=== PATIENT | female | born 1985 | race Caucasian/White ===

== ENCOUNTER 2023-12-15 20:25 | Outpatient (REF) | payer BC, SELFPAY | END 2023-12-15 20:26 | disposition home or self-care (01) | LOC: LAB 20:25 | PROVIDERS: Visit Provider Obstetrics & Gynecology | DX: N64.52 Nipple discharge (principal) | CPT/HCPCS: 36415 ==

== ENCOUNTER 2023-12-22 08:53 | Outpatient (OUT) | payer BC, SELFPAY ==
--- NOTE | 2023-12-22 08:56 | US_ITS ---
[address] [address] Patient Name: LELE MONTOYA MRN: [id number] date: 1985 Sex: F Assigned Patient Location: [facility] Current Patient Location: Accession/Order Number: [id number] Exam Date: 12/22/2023 08:56 Report Date: 12/23/2023 06:34 At the request of: LIDYA FUNEZ Procedure: US pelvis w/ transvaginal EXAMINATION: US pelvis w/ transvaginal HISTORY: IRREGULAR PERIODS COMPARISON: No relevant comparison available. TECHNIQUE: Transabdominal and/or transvaginal sonographic examination was performed as indicated by examination type. FINDINGS: UTERUS: Slightly prominent and heterogeneous. Uterus size: 11.1 x 5.6 x 9.2 cm ENDOMETRIUM: Heterogeneous and abnormally thickened. Endometrial thickness: 32 mm RIGHT OVARY: Normal size and appearance. Blood flow present within ovary on color Doppler. . Ovary size: 2.6 x 1.2 x 2.4 cm LEFT OVARY: Normal size and appearance. Duplex Doppler demonstrates normal waveform and flow; resistive index 0.5. Ovary size: 1.8 x 2.4 x 2.6 cm CUL-DE-SAC: Unremarkable. No significant free fluid. BLADDER: Unremarkable. OTHER: None. US/US pelvis w/ transvaginal IMPRESSION: 1. Slightly limited examination due to patient body habitus. 2. Heterogeneous and markedly thickened endometrium, 32 mm. Endometrial hyperplasia? Electronically authenticated by: EUFEMIA REECE Date: 12/23/2023 06:34
== END 2023-12-22 08:54 | disposition home or self-care (01) ==
LOC: NOMS 08:54
PROVIDERS: Visit Provider Obstetrics & Gynecology
DX: N64.52 Nipple discharge (principal); N92.6 Irregular menstruation, unspecified; R93.89 Abnormal findings on diagnostic imaging of other specified body structures
CPT/HCPCS: 76830; 76856

== ENCOUNTER 2023-12-22 09:58 | Outpatient (OUT) | payer BC, SELFPAY ==
[2023-12-22 10:22] LABS: Basophils Percent Auto 0.5 % (0.2-2.0); Eosinophils Absolute Auto 0.1 10^3/uL (0.0-0.7); Eosinophils Percent Auto 1.7 % (0.9-7.0); Hematocrit 38.8 % (36.0-48.0); Hemoglobin 12.8 g/dL (12.0-16.0); Immature Granulocytes Abs Auto 0.02 10^3/uL (0.00-0.03); Immature Granulocytes Pct Auto 0.2 % (0.0-0.5); Lymphocytes Absolute Auto 2.5 10^3/uL (1.2-3.8); Lymphocytes Percent Auto 29.7 % (20.5-60.0); Mean Corpuscular Hemoglobin 29.4 pg (26.7-34.0); Mean Corpuscular Volume 89.2 fL (81.0-99.0); Mean Platelet Volume 10.4 fL (9.5-13.5); Monocytes Absolute Auto 0.5 10^3/uL (0.3-0.8); Monocytes Percent Auto 6.2 % (1.7-12.0); Neutrophils Absolute Auto 5.2 10^3/uL (1.4-6.5); Neutrophils Percent Auto 61.7 % (43.0-75.0); Platelet Count 351 10^3/uL (150-450); Red Blood Count 4.35 10^6/uL (4.20-5.40); Red Cell Distribution Width 14.2 % (11.0-15.0); White Blood Count 8.5 10^3/uL (4.0-11.0)
[2023-12-22 11:29] LABS: Estimated Average Glucose 120 mg/dL; Glycohemoglobin A1C 5.8 % (4.5-6.2)
[2023-12-22 11:46] LABS: Thyroid Stimulating Hormone 1.991 uIU/mL (0.358-3.740)
[2023-12-22 11:47] LABS: HCG Quantitative <1 mIU/mL
[2023-12-22 11:57] LABS: Free T4 1.16 ng/dL (0.76-1.46)
[2023-12-23 04:12] LABS: FSH 5.8 mIU/mL (.); Luteinizing Hormone(LH) 3.1 mIU/mL (.); Prolactin 9.7 ng/mL (4.8-33.4)
== END 2023-12-22 09:59 | disposition home or self-care (01) ==
LOC: LAB 10:01
PROVIDERS: Visit Provider Obstetrics & Gynecology
DX: N64.52 Nipple discharge (principal); N92.6 Irregular menstruation, unspecified; R93.89 Abnormal findings on diagnostic imaging of other specified body structures
CPT/HCPCS: 36415; 76830; 76856; 82626; 82627; 83001; 83002; 83036; 84146; 84439; 84443; 84702; 85025; 87070; 87075

== ENCOUNTER 2023-12-22 21:31 | Outpatient (REF) | payer BC, SELFPAY ==
--- OUTSIDE RECORDS SUMMARY | 2023-12-22 21:37 | XMS_ITS | CCD ---
Author Organization [facility] Care Team Providers Care Community Ambassador Name Role Phone Jose Manuel Falcon Unavailable No, Physician Primary Care Provider Unavailabl e NO, PHYSICIAN Primary Care Unavailable YASMIN BROWN Attending Unavail able YASMIN BROWN Admitting Unavail able YASMIN BROWN Referring Unavail able NO, PHYSICIAN Primary Care Unavailable Lana Lombardi Primary Care Provider Maikel Leal Primary Care Provider MAIKEL LEAL Attending Unavailable MAIKEL LEAL Primary Care Unavailable ROXIE HUSSENI Attending Unavailabl e MAIKEL LEAL Primary Care Unavailable NO, PHYSICIAN Primary Care Unavailable SAMUEL MONTERO Attending Unavail able Maikel Leal MD Primary Care Provider Love Jimenez CNP Unavailable [phone] Maikel Leal MD Primary Care Provider oLve Jimenez CNP Unavailable Elisha Fuentes RN Unavailable Unavailable Love Jimenez CNP Unavailable Ariana Garza PA-C Primary Care Provide r Love Jimenez CNP Unavailable [phone] Love Jimenez CNP Unavailable [phone] Ariana Garza PA-C Primary Care Provide r Ariana Garza PA-C Primary Care Provide r Klaudia Marley RN Unavailable Unavailable CATRACHITO CUBA Referring Unavailab le CONNIFF, ARIANA REYES Primary Care Unavailab le CONNIFF, ARIANA REYES Attending Unavailab le CONNIFF, ARIANA REYES Primary Care Unavailab le CONNIFF, ARIANA REYES Attending Unavailab le VENKATESH III, ASHLEY FOWLER Referring Unav ailable VENKATESH III, ASHLYE FOWLER Referring Unav ailable CONNIFF, ARIANA REYES Primary Care Unavailab le CONNIFF, ARIANA ERYES Attending Unavailab marixa Barbara DAMARIS, Love Arrietazabeth Unavailable CONNIFF, ARIANA REYES Primary Care Unavailab le VENKATESH III, ASHLEY FOWLER Attending Unav ailable VENKATESH III, ASHLEY FOWLER Referring Unav ailable CONNIFF, ARIANA REYES Primary Care Unavailab le CONNIFF, ARIANA REYES Primary Care Unavailab le KUMPF II, TRACY LICONA Attending Unavailable KUMPF II, TRACY LICONA Referring Unavailable CONNIFF, ARIANA REYES Primary Care Unavailab le CONNIFF, ARIANA REYES Referring Unavailab le CONNIFF, ARIANA REYES Primary Care Unavailab le CONNIFF, ARIANA REYES Attending Unavailab le CONNIFF, ARIANA REYES Primary Care Unavailab le CONNIFF, ARIANA REYES Attending Unavailab le CONNIFF, ARIANA REYES Referring Unavailab le KUMPF II, TRACY LICONA Attending Unavailable CONNIFF, ARIANA REYES Primary Care Unavailab le CONIGYNICOLE Attending Unavailable CONNIFF, ARIANA REYES Primary Care Unavailab le CONNIFF, ARIANA REYES Referring Unavailab le CONNIFF, ARIANA REYES Admitting Unavailab le CONNIFF, ARIANA REYES Primary Care Unavailab le KUMPF II, TRACY LICONA Attending Unavailable CONNIFF, ARIANA REYES Primary Care Unavailab le KUMPF II, TRACY LICONA Attending Unavailable CONNIFF, ARIANA REYES Referring Unavailab le CONNIFF, ARIANA REYES Primary Care Unavailab le KUMPF II, TRACY LICONA Attending Unavailable CONNIFF, ARIANA REYES Primary Care Unavailab le CONNIFF, ARIANA REYES Attending Unavailab le CONNIFF, ARIANA REYES Primary Care Unavailab le CONNIFF, ARIANA REYES Attending Unavailab le CONNIFF, ARIANA REYES Primary Care Unavailab le KAYLA, ARIANA REYES Attending Unavailab le VENKATESH III, ASHLEY FOWLER Attending Unav ailable KALYA, ARIANA REYES Primary Care Unavailab marixa GARZA, ARIANA REYES Referring Unavailab le KAYLA, ARIANA REYES Attending Unavailab le KAYLA, RAIANA REYES Primary Care Unavailab le DEE DEELIDYA Attending Unavailable Allergies Allergy Classification Reported Allergen(s) Allergy Type Date of Onset Reaction(s) Facility NSAIDs (1 source) Ibuprofen Drug Allergy 9 GI Intolerance [facility] (20 sources) Ibuprofen; Translations: [Unknown] Drug Allergy 8 Nausea and Vomiting, GI Intolerance [facility] Work Phone: (20 sources) bee venom Propensity to adverse reactions to drug 9 Anaphylaxis [facility] (5 sources) BEE VENOM PROTEIN (HONEY BEE); Translations: [BEE VENOM PROTEIN (HONEY BEE)] Propensity to adverse reactions to drug (disorder) 9 [facility] Three Repository Medications Current Medications Medication Drug Class(es) Dates Sig (Normalized) Sig (Original) baclofen 5 mg oral tablet (10 sources) gamma-Aminobutyri c Acid-ergic Agonist Start: 04-25-2023 End: 07-24-2023 take 1 tablet by mouth three times daily as needed baclofen 5 mg Tab Indications: Multiple joint complaints Take 1 (one) tablet (5 mg total) by mouth 3 (three) times a day as needed . 90 tablet 0 04/25/2023 07/24/2023 Active Start: 01-23-2023 take 1 tablet by rolly three times daily as needed baclofen 5 mg Tab Indications: Multiple joint complaints Take 1 (one) tablet (5 mg total) by mouth 3 (three) times a day as needed . 90 tablet 0 01/23/2023 Active blood-glucose sensor (FreeSt yle Melania 3 Sensor) Marsha (15 sources) Start: 08-19-2023 blood-glucose sensor (FreeStyle Melania 3 Sensor) Marsha Indications: Prediabetes For continuous glucose monitoring. Change every 14 days . 2 each 1 08/19/2023 Active Start: 04-25-2023 End: 08-19-2023 blood-glucose sensor (FreeSt yle Melania 3 Sensor) Marsah Indications: Prediabetes For continuous glucose monitoring. Change every 14 days . 2 each 2 04/25/2023 08/19/2023 Discontinued (Reorder (Suppress CancelRx Message to Pharmacy)) Start: 04-25-2023 blood-glucose sensor (FreeStyle Melania 3 Sensor) Marsha Indications: Prediabetes For continuous glucose monitoring. Change every 14 days . 2 each 2 04/25/2023 Active 24 hr buPROPion hydrochloride 300 mg extended release oral tablet (20 sources) Aminoketone Start: 04-25-2023 End: 08-19-2023 take 1 tablet by mouth once daily buPROPion (Wellbutrin XL) 300 MG 24 hr tablet Indications: Current moderate episode of major depressive disorder without prior episode (HCC) Take 1 (one) tablet (300 mg total) by mouth daily . 90 tablet 1 08/19/2023 Active Start: 03-05-2022 End: 03-05-2023 take 1 tablet by mouth once daily buPROPion (Wellbutrin XL) 300 MG 24 hr tablet Indications: Current moderate episode of major depressive disorder without prior episode (HCC) Take 1 (one) tablet (300 mg total) by mouth daily . 90 tablet 1 09/04/2022 Active Start: 02-05-2022 End: 02-05-2023 take 1 tablet by mouth once daily buPROPion (Wellbutrin XL) 150 MG 24 hr tablet Indications: Current moderate episode of major depressive disorder without prior episode (HCC) Take 1 (one) tablet (150 mg total) by mouth daily . 30 tablet 0 02/05/2022 03/05/2022 Discontinued (Reorder (Suppress CancelRx Message to Pharmacy)) busPIRone hydrochloride 5 mg oral tablet (7 sources) Start: 03-17-2019 take 1 tablet by mouth twice daily as needed busPIRone 5 MG Tab Indications: Post-traumatic stress Take 1 tablet by mouth 2 times daily as needed. 60 tablet 1 03/17/2019 Active clindamycin 300 mg oral capsule (5 sources) Lincosamide Antibacterial Start: 10-16-2023 End: 10-26-2023 take 1 capsule by mouth twice daily clindamycin (CLEOCIN) 300 MG capsule Indications: Cellulitis of right breast , Mastitis Take 1 (one) capsule (300 mg total) by mouth 2 (two) times a day for 10 days . 20 capsule 10/16/2023 10/26/2023 Active Start: 03-19-2018 End: 03-18-2018 clindamycin (CLEOCIN) capsul e 300 mg Start: 03-18-2018 End: 03-25-2018 take 1 capsule by mouth four times daily clindamycin 300 MG Cap Take 1 capsule by mouth 4 times daily for 7 days. 28 capsule 0 03/18/2018 03/25/2018 Active doxycycline hyclate 100 mg oral tablet (7 sources) Tetracycline-class Drug Start: 08-19-2023 take 1 tablet by mouth twice daily doxycycline hyclate (VIBRA-TABS) 100 MG tablet Indications: Mastitis Take 1 (one) tablet (100 mg total) by mouth 2 (two) times a day . 14 tablet 08/19/2023 Active 24 hr metFORMIN hydrochloride 500 mg extended release oral tablet (18 sources) Biguanide Start: 01-23-2023 End: 01-23-2024 take 1 tablet by mouth once daily at breakfast metFORMIN (GLUCOPHAGE-XR) 500 MG 24 hr tablet Indications: Prediabetes Take 1 (one) tablet (500 mg total) by mouth daily with breakfast . 90 tablet 1 08/19/2023 Active multivitamin (THERAGRAN) per tablet (20 sources) take 1 tablet by mouth once daily multivitamin (THERAGRAN) per tablet Take 1 (one) tablet by mouth daily . Active take 1 tablet by mouth once soham y multivitamin (THERAGRAN) per tablet Take 1 (one) tablet by mouth daily . 0 Active multivitamin per tablet (1 source) take 1 tablet by mouth once daily multivitamin per tablet Take 1 (one) tablet by mouth daily . 0 Active PARoxetine hydrochloride 30 mg oral tablet (12 sources) Serotonin Reuptake Inhibitor Start: 9 End: 0 take 1 tablet by mouth once daily PARoxetine 30 MG tablet Indications: Post-traumatic stress Take 1 tablet by mouth daily. 30 tablet 3 06/10/2019 Active Start: 01-25-2019 End: 03-17-2019 take 1 tablet by mouth once daily paroxetine (PAXIL) 20 MG Tab tablet Indications: Post-traumatic stress Take 1 tablet by mouth daily. 30 tablet 1 01/25/2019 03/17/2019 Discontinued (Reorder) Completed/Discontinued Medications Medication Drug Class(es) Dates Sig (Normalized) Sig (Original) acetaminophen 325 mg / HYDROcodone bitartrate 5 mg oral tablet (1 source) Opioid Agonist Start: 03-19-2018 End: 03-18-2018 hydroCODone-acetam inophen (NORCO) 5-325 MG per tablet 1 Each Start: 03-19-2018 End: 03-18-2018 hydroCODone-acetaminophen (N ORCO) 5-325 MG per tablet 1 Each blood-glucose sensor (Dexcom G7 Sensor) Marsha (8 sources) Start: 04-25-2023 End: 08-19-2023 blood-glucose sensor (Dexcom G7 Sensor) Marsha Indications: Prediabetes For continuous glucose monitoring. Change every 10 days . 3 each 2 04/25/2023 08/19/2023 Discontinued (Patient's Request) Start: 04-25-2023 blood-glucose sensor (Dexcom G7 Sensor) Marsha Indications: Prediabetes For continuous glucose monitoring. Change every 10 days . 3 each 2 04/25/2023 Active 20 ml bupivacaine hydrochloride 5 mg/ml injection (1 source) Amide Local Anesthetic Start: 03-18-2018 End: 03-18-2018 bupivacaine (PF) (MARCAINE) 0.5 % injection 10 mL Start: 03-18-2018 End: 03-18-2018 bupivacaine (PF) (MARCAINE) 0.5 % injection 10 mL cephalexin 500 mg oral capsule (1 source) Cephalosporin Antibacterial Start: 03-18-2018 End: 03-18-2018 cephALEXin (KEFLEX) capsule 1,000 mg Start: 03-18-2018 End: 03-18-2018 cephALEXin (KEFLEX) capsule 1,000 mg 12 hr cetirizine hydrochloride 5 mg / pseudoephedrine hydrochloride 120 mg extended release oral tablet (1 source) alpha-Adrenergic Agonist, Histamine-1 Receptor Antagonist Start: 09-10-2022 End: 01-23-2023 take 1 tablet by mouth twice daily cetirizine-pseudoePHEDrine (ZyrTEC-D) 5-120 mg per tablet Take 1 (one) tablet by mouth 2 (two) times a day . 60 tablet 0 09/10/2022 01/23/2023 Discontinued cyclobenzaprine hydrochloride 5 mg oral tablet (9 sources) Muscle Relaxant Start: 12-07-2019 End: 12-14-2019 take 1 tablet by mouth twice daily as needed cyclobenzaprine 5 MG tablet Indications: Chronic right-sided low back pain with bilateral sciatica Take 1 tablet by mouth 2 times daily as needed. During waking hours 14 tablet 0 12/07/2019 12/14/2019 Discontinued Start: 12-07-2019 End: 12-07-2019 take 1 tablet by mouth three times daily as needed for muscle spasms cyclobenzaprine 5 MG tablet Indications: Chronic right-sided low back pain with bilateral sciatica Take 1 tablet by mouth 3 times daily as needed for Muscle spasms. 14 tablet 0 12/07/2019 12/07/2019 Discontinued Start: 12-06-2019 End: 12-07-2019 take 1 tablet by mouth at bedtime as needed cyclobenzaprine 10 MG tablet Take 1 tablet by mouth at bedtime as needed. 0 12/07/2019 Active dexamethasone 1 mg/ml / neomycin 3.5 mg/ml / polymyxin b 65142 unt/ml ophthalmic suspension (1 source) Aminoglycoside Antibacterial, Polymyxin-class Antibacterial, Corticosteroid Start: 05-07-2019 End: 06-10-2019 take 1 drop(s) into the eye(s) every four hours [id number] 3.5-21060-2.[address] 1 drop in both eyes every 4 hours while awake. 5 mL 0 05/07/2019 06/10/2019 Discontinued 30 ml EPINEPHrine 0.005 mg/ml / lidocaine hydrochloride 10 mg/ml injection (1 source) Antiarrhythmic, alpha-Adrenergic Agonist, beta-Adrenergic Agonist, Catecholamine, Amide Local Anesthetic Start: 03-18-2018 End: 03-18-2018 lidocaine-epinephrine 1%-1:2 17100 injection SOLN 10 mL Start: 03-18-2018 End: 03-18-2018 lidocaine-epinephrine 1%-1:2 39159 injection SOLN 10 mL lidocaine 0.05 mg/mg medicated patch (3 sources) Antiarrhythmic, Amide Local Anesthetic Start: 12-06-2019 End: 12-07-2019 lidocaine 5 % Patch patch Place 1 patch on skin every 24 hours. Max of 12 hours of application then remove. 12 patch 0 12/06/2019 12/07/2019 Discontinued Start: 12-06-2019 End: 12-06-2019 lidocaine (LIDODERM) 5 % pat ch 1 patch losartan potassium 50 mg oral tablet (5 sources) Angiotensin 2 Receptor Iza Start: 06-25-2019 End: 12-14-2019 take 1 tablet by mouth once daily losartan (Cozaar) 50 MG tablet Indications: Essential hypertension Take 1 tablet by mouth daily. 30 tablet 1 06/25/2019 12/14/2019 Discontinued medroxyPROGESTERone acetate 10 mg oral tablet (9 sources) Progestin Start: 05-08-2020 End: 02-05-2022 medroxyPROGESTERone (PROVERA) 10 MG tablet Take 1 (one) tablet (10 mg total) by mouth daily To start menses every 2 months if needed for 10 days . 10 tablet 4 05/08/2020 02/05/2022 Discontinued (Patient's Request) 24 hr oxybutynin chloride 5 mg extended release oral tablet (2 sources) Cholinergic Muscarinic Antagonist Start: 05-28-2022 End: 05-28-2023 take 1 tablet by mouth once daily oxybutynin (DITROPAN-XL) 5 MG 24 hr tablet Indications: Overactive bladder Take 1 (one) tablet (5 mg total) by mouth daily . 30 tablet 0 05/28/2022 09/04/2022 Discontinued predniSONE 10 mg oral tablet (1 source) Start: 09-10-2022 End: 01-23-2023 take 3 tablets by mouth once daily predniSONE (DELTASONE) 10 MG tablet Take three tabs po qd x 3 d . 9 tablet 0 09/10/2022 01/23/2023 Discontinued Problems Active Problems Problem Classification Problem Date Documented Date Episodic/Chronic Anxiety disorders (4 sources) Posttraumatic stress disorder; Translations: [Post-traumatic stress] Chronic Conduction disorders (1 source) Long QT syndrome; Translations: [Long Q-T syndrome] Chronic Essential hypertension (2 sources) Essential hypertension; Translations: [Essential hypertension] Chronic Immunizations and screening for infectious disease (2 sources) Disorder excluded; Translations: [Encounter for observation for suspected exposure to other biological agents ruled out] Episodic Menstrual disorders (1 source) Menorrhagia; Translations: [Menorrhagia with regular cycle] Chronic Mood disorders (8 sources) Moderate major depression, single episode; Translations: [Major depressive disorder, single episode, moderate] Onset: 01-23-2023 Chronic Nonmalignant breast conditions (20 sources) Lump in right breast; Translations: [Unspecified lump in the right breast, unspecified quadrant] Onset: 04-01-2023 Episodic Other circulatory disease (1 source) Elevated blood pressure; Translations: [Elevated blood pressure reading] Episodic Other connective tissue disease (1 source) Pain in right foot; Translations: [Foot pain, right] Episodic Other diseases of bladder and urethra (1 source) Overactive bladder; Translations: [Overactive bladder] Chronic Other non-traumatic joint disorders (1 source) Joint finding; Translations: [Joint disorder, unspecified] 01-23-2023 Episodic Other nutritional; endocrine; and metabolic disorders (20 sources) Body mass index 40+ - severely obese; Translations: [Morbid (severe) obesity due to excess calories] Onset: 11-24-2018 08-04-2020 Chronic Other nutritional; endocrine; and metabolic disorders (13 sources) Morbid obesity; Translations: [Obesity, morbid, BMI 40.0-49.9] Onset: 11-24-2018 11-24-2018 Chronic Other screening for suspected conditions (not mental disorders or infectious disease) (3 sources) Raised TSH level; Translations: [Patient encounter status] Episodic Other skin disorders (1 source) Hidradenitis suppurativa; Translations: [Hidradenitis suppurativa] Episodic Residual codes; unclassified (2 sources) Tobacco user; Translations: [Tobacco use] Chronic Residual codes; unclassified (2 sources) Family history of breast cancer; Translations: [Family history of malignant neoplasm of breast] Episodic Residual codes; unclassified (1 source) Family history of malignant neoplasm of breast in first degree relative; Translations: [Family history of malignant neoplasm of breast] 05-14-2023 Episodic Residual codes; unclassified (1 source) H/O: breast problem; Translations: [Personal history of other specified conditions] 10-22-2023 Episodic Residual codes; unclassified (2 sources) Personal history of other specified conditions; Translations: [Personal history of other specified conditions] Onset: 10-22-2023 Episodic Spondylosis; intervertebral disc disorders; other back problems (2 sources) Disorder of lumbar disc; Translations: [Chronic low back pain] Episodic Unclassified (2 sources) Patient encounter status; Translations: [Encounter for well woman exam without gynecological exam] Past or Other Problems Problem Classification Problem Date Documented Da te Episodic/Chronic Diabetes mellitus without complication (7 sources) Prediabetes; Translations: [Prediabetes] Onset: 01-23-2023 09-04-2022 Episodic Other non-traumatic joint disorders (2 sources) Joint disorder, unspecified; Translations: [Joint disorder, unspecified] Onset: 01-23-2023 Episodic Residual codes; unclassified (2 sources) Family history of malignant neoplasm of breast; Translations: [Family history of malignant neoplasm of breast] Onset: 06-18-2023 Episodic Unclassified (1 source) Paronychia of right thumb Results Test Name Value Interpretation Reference Range Facil ity CBC WITH AUTO DIFFERENTIALon 10-17-2023 AUTO NRBC 0.0 % Normal [facility] Comment on above: Performed By: #### L [id number] #### [facility] [address] [place], [place] [address] Tenisha Vizcarra M.D. [id number] AUTO NRBC ABS COUNT 0.00 K/mcL Normal 0.00-0.00 [facility] Comment on above: Performed By: #### L [id number] #### [facility] [address] [place], [place] [address] Tenisha Vizcarra M.D. [id number] BASOPHILS ABSOLUTE COUNT 0.04 K/mcL Normal 0.00-0.30 [facility] Comment on above: Performed By: #### L [id number] #### [facility] [address] [place], [place] [address] Tenisha Vizcarra M.D. [id number] Basophils/100 WBC (Bld) 0.5 % Normal [facility] Comment on above: Performed By: #### L [id number] #### [facility] [address] [place], [place] [address] Tenisha Vizcarra M.D. [id number] Eosinophils (Bld) [#/Vol] 0.14 10*3/uL Normal 0.00-0.50 [facility] Comment on above: Performed By: #### L [id number] #### [facility] [address] [place], [place] [address] Tenisha Vizcarra M.D. [id number] Eosinophils/100 WBC (Bld) 1.7 % Normal [facility] Comment on above: Performed By: #### L [id number] #### [facility] [address] [place] [address] Tenisha Vizcarra M.D. [id number] Erythrocyte distribution width (RBC) [Ratio] 14.2 % Normal 11.6-14.8 [facility] Comment on above: Performed By: #### L [id number] #### [facility] [address] [place] [address] Tenisha Vizcarra M.D. [id number] Hematocrit (Bld) [Volume fraction] 40.2 % Normal 36.0-46.0 [facility] Comment on above: Performed By: #### L [id number] #### [facility] [address] [place] [address] Tenisha Vizcarra M.D. [id number] Hemoglobin (Bld) [Mass/Vol] 13.2 g/dL Normal 12.0-16.0 [facility] Comment on above: Performed By: #### L [id number] #### [facility] [address] [place] [address] Tenisha Vizcarra M.D. [id number] IG ABSOLUTE 0.03 K/mcL Normal 0.00-0.30 [facility] Comment on above: Performed By: #### L [id number] #### [facility] [address] [place] [address] Tenisha Vizcarra M.D. [id number] IG PERCENT 0.40 % Normal [facility] Comment on above: Result Comment: The IG parameter is the percentage of metamyelocytes, myelocytes and promyelocytes. An immature granulocyte count (IG) of 1% or more suggests the possibility of infection, an IG count of 3% is very likely related to an infection. Performed By: #### L [id number] #### [facility] [address] [place] [address] Tenisha Vizcarra M.D. [id number] Lymphocytes (Bld) [#/Vol] 2.38 10*3/uL Normal 0.90-4.00 [facility] Comment on above: Performed By: #### L [id number] #### [facility] [address] [place], [place] [address] Tenisha Vizcarra M.D. [id number] Lymphocytes/100 WBC (Bld) 29.5 % Normal [facility] Comment on above: Performed By: #### L [id number] #### [facility] [address] [place], [place] [address] Tenisha Vizcarra M.D. [id number] MCH (RBC) [Entitic mass] 29.6 pg Normal 26.0-34.0 [facility] Comment on above: Performed By: #### L [id number] #### [facility] [address] [place] [address] Tenisha Vizcarra M.D. [id number] MCV (RBC) [Entitic vol] 90.1 fL Normal 80.0-100.0 [facility] Comment on above: Performed By: #### L [id number] #### [facility] [address] [place] [address] Tenisha Vizcarra M.D. [id number] MEAN CORPUSCULAR HEMOGLOBIN CONC 32.8 g/dL Normal 31.0-37.0 [facility] Comment on above: Performed By: #### L [id number] #### [facility] [address] [place], [place] [address] Tenisha Vizcarra M.D. [id number] Monocytes (Bld) [#/Vol] 0.57 10*3/uL Normal 0.30-0.90 [facility] Comment on above: Performed By: #### L [id number] #### [facility] [address] [place] [address] Tenisha Vizcarra M.D. [id number] Monocytes/100 WBC (Bld) 7.1 % Normal [facility] Comment on above: Performed By: #### L [id number] #### [facility] [address] [place] [address] Tenisha Vizcarra M.D. [id number] NEUTROPHILS ABSOLUTE COUNT 4.91 K/mcL Normal 1.70-7.00 [facility] Comment on above: Performed By: #### L [id number] #### [facility] [address] [place], [place] [address] Tenisha Vizcarra M.D. [id number] Neutrophils/100 WBC (Bld) 60.8 % Normal [facility] Comment on above: Performed By: #### L [id number] #### [facility] [address] [place], [place] [address] Tenisha Vizcarra M.D. [id number] Platelet mean volume (Bld) [Entitic vol] 10.6 fL Normal 9.4-12.4 [facility] Comment on above: Performed By: #### L [id number] #### [facility] [address] [place], [place] [address] Tenisha Vizcarra M.D. [id number] Platelets (Bld) [#/Vol] 371 10*3/uL Normal 150-400 [facility] Comment on above: Performed By: #### L [id number] #### [facility] [address] [place], [place] [address] Tenisha Vizcarra M.D. [id number] RBC (Bld) [#/Vol] 4.46 10*6/uL Normal 4.00-5.20 [facility] Comment on above: Performed By: #### L [id number] #### [facility] [address] [place], [place] [address] Tenisha Vizcarra M.D. [id number] WBC (Bld) [#/Vol] 8.07 10*3/uL Normal 4.50-11.00 [facility] Comment on above: Performed By: #### L [id number] #### [facility] [address] [place], [place] [address] Tenisha Vizcarra M.D. [id number] COMPREHENSIVE METABOLIC PANE [place] 10-17-2023 Albumin [Mass/Vol] 3.8 g/dL Normal 3.2-5.2 [facility] Comment on above: Order Comment: [facility] has implemented the eGFR calculation approach that does not have a coefficient for race that conforms to the NKF-ASN Task Force Recommendations. Performed By: #### [id number] #### [facility] [address] [place], [place] [address] Tenisha Vizcarra M.D. [id number] ALP [Catalytic activity/Vol] 81 U/L Normal 40-140 [facility] Comment on above: Order Comment: [facility] has implemented the eGFR calculation approach that does not have a coefficient for race that conforms to the NKF-ASN Task Force Recommendations. Performed By: #### [id number] #### [facility] [address] [place] [address] Tenisha Vizcarra M.D. [id number] ALT [Catalytic activity/Vol] 15 U/L Normal 0-35 U/L [facility] Comment on above: Order Comment: [facility] has implemented the eGFR calculation approach that does not have a coefficient for race that conforms to the NKF-ASN Task Force Recommendations. Performed By: #### [id number] #### [facility] [address] [place] [address] Tenisha Vizcarra M.D. [id number] Anion gap [Moles/Vol] 12 mmol/L Normal 10-20 [facility] Comment on above: Order Comment: [facility] has implemented the eGFR calculation approach that does not have a coefficient for race that conforms to the NKF-ASN Task Force Recommendations. Performed By: #### [id number] #### [facility] [address] [place] [address] Tenisha Vizcarra M.D. [id number] AST [Catalytic activity/Vol] 16 U/L Normal 0-35 U/L [facility] Comment on above: Order Comment: [facility] has implemented the eGFR calculation approach that does not have a coefficient for race that conforms to the NKF-ASN Task Force Recommendations. Performed By: #### [id number] #### [facility] [address] [place] [address] Tenisha Vizcarra M.D. [id number] Bilirubin [Mass/Vol] 0.3 mg/dL Normal 0.0-1.3 [facility] Comment on above: Order Comment: [facility] has implemented the eGFR calculation approach that does not have a coefficient for race that conforms to the NKF-ASN Task Force Recommendations. Performed By: #### [id number] #### [facility] [address] [place], [place] [address] Tenisha Vizcarra M.D. [id number] Calcium [Mass/Vol] 9.2 mg/dL Normal 8.4-10.2 [facility] Comment on above: Order Comment: [facility] has implemented the eGFR calculation approach that does not have a coefficient for race that conforms to the NKF-ASN Task Force Recommendations. Performed By: #### [id number] #### [facility] [address] [place], [place] [address] Tenisha Vizcarra M.D. [id number] Chloride [Moles/Vol] 105 mmol/L Normal 98-108 [facility] Comment on above: Order Comment: [facility] has implemented the eGFR calculation approach that does not have a coefficient for race that conforms to the NKF-ASN Task Force Recommendations. Performed By: #### [id number] #### [facility] [address] [place], [place] [address] Tenisha Vizcarra M.D. [id number] Creatinine [Mass/Vol] 0.66 mg/dL Normal 0.40-1.10 [facility] Comment on above: Order Comment: [facility] has implemented the eGFR calculation approach that does not have a coefficient for race that conforms to the NKF-ASN Task Force Recommendations. Performed By: #### [id number] #### [facility] [address] [place], [place] [address] Tenisha Vizcarra M.D. [id number] EGFR 116 mL/min/1.73 m2 Normal >=60 [facility] Comment on above: Order Comment: [facility] has implemented the eGFR calculation approach that does not have a coefficient for race that conforms to the NKF-ASN Task Force Recommendations. Result Comment: Coco mated GFR was calculated using the 2020 CKD-EPI creatinine equation. Performed By: #### [id number] #### [facility] [address] [place], [place] [address] Tenisha Vizcarra M.D. [id number] Glucose [Mass/Vol] 115 mg/dL High 65-99 [facility] Comment on above: Order Comment: [facility] has implemented the eGFR calculation approach that does not have a coefficient for race that conforms to the NKF-ASN Task Force Recommendations. Performed By: #### 4 [id number] #### [facility] [address] [place], [place] [address] Tenisha Vizcarra M.D. [id number] HCO3 (Bld) [Moles/Vol] 24 mmol/L Normal 21-32 [facility] Comment on above: Order Comment: [facility] has implemented the eGFR calculation approach that does not have a coefficient for race that conforms to the NKF-ASN Task Force Recommendations. Performed By: #### 4 [id number] #### [facility] [address] [place] [address] Tenisha Vizcarra M.D. [id number] Potassium [Moles/Vol] 3.7 mmol/L Normal 3.5-5.1 [facility] Comment on above: Order Comment: [facility] has implemented the eGFR calculation approach that does not have a coefficient for race that conforms to the NKF-ASN Task Force Recommendations. Performed By: #### [id number] #### [facility] [address] [place] [address] Tenisha Vizcarra M.D. [id number] Protein [Mass/Vol] 7.2 g/dL Normal 6.0-8.0 [facility] Comment on above: Order Comment: [facility] has implemented the eGFR calculation approach that does not have a coefficient for race that conforms to the NKF-ASN Task Force Recommendations. Performed By: #### 4 [id number] #### [facility] [address] [place], [place] [address] Tenisha Vizcarra M.D. [id number] Sodium [Moles/Vol] 137 mmol/L Normal 135-145 [facility] Comment on above: Order Comment: [facility] has implemented the eGFR calculation approach that does not have a coefficient for race that conforms to the NKF-ASN Task Force Recommendations. Performed By: #### 4 [id number] #### [facility] [address] [place], [place] [address] Tenisha Vizcarra M.D. [id number] Urea nitrogen [Mass/Vol] 12 mg/dL Normal 8-25 [facility] Comment on above: Order Comment: [facility] has implemented the eGFR calculation approach that does not have a coefficient for race that conforms to the NKF-ASN Task Force Recommendations. Performed By: #### 4 [id number] #### [facility] [address] [place], [place] [address] Tenisha Vizcarra M.D. [id number] Urea nitrogen/Creatinine [Mass ratio] 18.2 mg/mg Normal 10.0-20.0 [facility] Comment on above: Order Comment: [facility] has implemented the eGFR calculation approach that does not have a coefficient for race that conforms to the NKF-ASN Task Force Recommendations. Performed By: #### 4 [id number] #### [facility] [address] [place], [place] [address] Tenisha Vizcarra M.D. [id number] HEMOGLOBIN A1Con 10-17-2023 Glucose [Mass/Vol] 126 mg/dL High 74-114 [facility] Comment on above: Performed By: #### 4 [id number] #### [facility] [address] [place], [place] [address] Tenisha Vizcarra M.D. [id number] HbA1c (Bld) [Mass fraction] 6.0 % High 4.2-5.6 [facility] Comment on above: Performed By: #### 4 [id number] #### [facility] [address] [place], [place] [address] Tenisha Vizcarra M.D. [id number] LIPID PANELon 10-17-2023 Cholesterol [Mass/Vol] 150 mg/dL Normal 100-199 [facility] Comment on above: Performed By: #### 4 [id number] #### [facility] [address] [place], [place] [address] Tenisha Vizcarra M.D. [id number] Cholesterol in HDL [Mass/Vol] 37 mg/dL Low 40-59 [facility] Comment on above: Performed By: #### 4 [id number] #### [facility] [address] [place], [place] [address] Tenisha Vizcarra M.D. [id number] Cholesterol.total/Ch olesterol in HDL [Mass ratio] 4.1 {ratio} Normal [facility] Comment on above: Result Comment: Fema le Cholesterol/HDL Ratio: Average risk: 4.4 1/2 average risk: 3.3 2 x average risk: 7.1 Performed By: #### 4 [id number] #### [facility] [address] [place], [place] [address] Tenisha Vizcarra M.D. [id number] LDL CHOLESTEROL CALCULATED 102 mg/dL Normal 10-130 [facility] Comment on above: Result Comment: [facility] Cholesterol Education Program Guidelines: LDL Cholesterol Optimal: <100 mg/dL Near Optimal/above Optimal: 100-129 mg/dL Borderline High: 130-159 mg/dL High: 160-189 mg/dL Very High: greater than or equal to 190 mg/dL Performed By: #### 4 [id number] #### [facility] [address] [place], [place] [address] Tenisha Vizcarra M.D. [id number] NON HDL CHOL 113 mg/dL Normal [facility] Comment on above: Result Comment: [facility] Cholesterol Education Program Guidelines: NON HDL Cholesterol Desirable: <130 mg/dL Borderline High: 130-159 mg/dL High: 160-189 mg/dL Very High: > or = 190 mg/dL Performed By: #### 4 [id number] #### [facility] [address] [place], [place] [address] Tenisha Vizcarra M.D. [id number] Triglyceride [Mass/Vol] 57 mg/dL Normal 30-150 [facility] Comment on above: Performed By: #### 4 [id number] #### [facility] [address] [place], [place] [address] Tenisha Vizcarra M.D. [id number] US BREAST RIGHT LIMITEDon US BREAST RIGHT LIMITED EXAMINATION: US BREAST RIGHT LIMITED HISTORY: Chronic mastitis of right breast. COMPARISON: The previous mammogram is reviewed of 07/01/2023. The previous ultrasound is reviewed of 07/01/2023. An MR of 06/18/2023 is reviewed. BREAST COMPOSITION: Not pertinent. FINDINGS: The patient presented for ultrasound of the right breast. There is an area of visible redness and concern for inflammation in the right breast region which is labeled at 1 o'clock near the subareolar zone. Ultrasound imaging done in this area is indicating a very superficial fluid collection beneath the skin which is close to the area of an earlier biopsy as there is a marker from the biopsy which is in the region of the fluid collection. The area is measuring approximately 3.8 x 0..9 cm in size. Some low-level echoes within the region could be seen. Slight increased vascularity is suspected. The clip from the earlier ultrasound-guided biopsy is surrounded with this inflammatory process. IMPRESSION: Ultrasound suggests an anterior complex fluid collection which is encircling the clip from previous biopsy. This is clinically visibly red and an infection is likely in this area. A superficial abscess is likely here. It seems to be very close to the skin surface. If this does not respond to antibiotic treatment, surgical curettage may be optimum as the clip seems to be surrounded with the area of phlegmon and therefore would secondarily probably be infected and should be removed. BIRADS: Category 3 - Findings are probably benign. A short interval follow-up is recommended in 6 months OVERALL ASSESSMENT - PROBABLY BENIGN RECOMMENDATION: Continued antibiotic coverage; but, if this persists clinically, surgical drainage and debridement may be optimum. MARGOT/zhao Workstation ID: [id number] Dictated by: PANCHO POST on FriOct 17, 2023 2:19:12 PM EDT Transcribed by: DANIEL CALLAWAY on FriOct 17, 2023 2:59:17 PM EDT Finalized by: PANCHO POST on FriOct 17, 2023 5:25:41 PM EDT Normal [facility] Comment on above: Order Comment: [facility] in [place]. Injury/Trauma or Illness?:Illness/Other How long have you had these symptoms (acute/chronic)?:Unknown Reason for exam?:mastitis Type of Exam?:Subsequent/Follow-up Additional signs and symptoms?:none MM FOLLOW UP POST CLIP PLACE [facility] 07-01-2023 MM FOLLOW UP POST CLIP PLACEMENT EXAMINATION: US BREAST RIGHT LIMITED; US BREAST BIOPSY RIGHT; MM FOLLOW UP POST CLIP PLACEMENT 07/01/2023 COMPARISON: Bilateral breast MR with IV contrast dated 06/18/2023. Bilateral diagnostic mammogram and bilateral breast ultrasound dated 04/11/2023. HISTORY: Indeterminate 2.5 cm linear/ductal non-mass enhancement in the anterior right breast on the 06/18/2023 MR. FINDINGS: Preliminary sonographic imaging of the subareolar and periareolar right breast was performed. There is an isolated, focal dilated duct in the subareolar right breast, extending toward 1 o'clock, that corresponds in size and position to the linear/ductal non-mass enhancement seen by MR. Faint low-level echoes are seen within the ectatic duct. No definite color Doppler signal. No other dilated ducts, masses, or cysts are identified in this area. No abnormal lymph nodes are identified in the right axilla. PROCEDURE: After discussing the risks, indications, and treatment alternatives, informed consent was obtained. Pause and confirm protocol was followed. The skin was prepped and draped in the usual rigorous aseptic fashion. Lidocaine was used for local anesthesia. Under sonographic guidance, a 13-gauge introducer needle was advanced to the margin of the ectatic duct in the right breast at 1 o'clock. A series of core biopsies were obtained through the introducer needle using a 14-gauge core biopsy gun. The core samples were placed in formalin and submitted to Pathology. An open cylinder T3 HydroMARK clip was placed at the biopsy site. A post biopsy right mammogram was obtained and shows no migration of the clip from the biopsy site. Incidentally noted is a butterfly-shaped T4 HydroMARK clip in the lower central right breast at 6 o'clock from previous benign biopsy. Hemostasis was easily achieved at the access site using manual compression. Trace blood loss was encountered. The patient tolerated the procedure well without immediate complications and was discharged from the department in good condition. IMPRESSION: 1. Ultrasound-guided core biopsy of an indeterminate focally dilated duct in the subareolar right breast at 1 o'clock, which corresponds to an area of abnormal non-mass enhancement seen by MR. 2. A T3 HydroMARK clip was placed at biopsy site with no migration of the clip seen from the biopsy site on the post biopsy right mammogram. Code ZW - Awaiting further pathology. CE/zhao Workstation ID: [id number] Addended: FriJul 03, 2023 9:22 AM by Catrachito Cuba MD ADDENDUM: Pathology - Right breast, 1 o'clock zone A, ultrasound-guided core biopsy: Actively inflamed duct compatible with mastitis. Pathology results are concordant with the imaging findings. [facility] Workstation ID: [id number] Dictated by: CATRACHITO CUBA Transcribed by: DANIEL CALLAWAY on FriJul 01, 2023 9:21:59 AM EST Finalized by: CATRACHITO CUBA on FriJul 01, 2023 9:57:03 AM EST Normal [facility] US BREAST BIOPSY RIGHTon US BREAST BIOPSY RIGHT EXAMINATION: US BREAST RIGHT LIMITED; US BREAST BIOPSY RIGHT; MM FOLLOW UP POST CLIP PLACEMENT 07/01/2023 COMPARISON: Bilateral breast MR with IV contrast dated 06/18/2023. Bilateral diagnostic mammogram and bilateral breast ultrasound dated 04/11/2023. HISTORY: Indeterminate 2.5 cm linear/ductal non-mass enhancement in the anterior right breast on the 06/18/2023 MR. FINDINGS: Preliminary sonographic imaging of the subareolar and periareolar right breast was performed. There is an isolated, focal dilated duct in the subareolar right breast, extending toward 1 o'clock, that corresponds in size and position to the linear/ductal non-mass enhancement seen by MR. Faint low-level echoes are seen within the ectatic duct. No definite color Doppler signal. No other dilated ducts, masses, or cysts are identified in this area. No abnormal lymph nodes are identified in the right axilla. PROCEDURE: After discussing the risks, indications, and treatment alternatives, informed consent was obtained. Pause and confirm protocol was followed. The skin was prepped and draped in the usual rigorous aseptic fashion. Lidocaine was used for local anesthesia. Under sonographic guidance, a 13-gauge introducer needle was advanced to the margin of the ectatic duct in the right breast at 1 o'clock. A series of core biopsies were obtained through the introducer needle using a 14-gauge core biopsy gun. The core samples were placed in formalin and submitted to Pathology. An open cylinder T3 HydroMARK clip was placed at the biopsy site. A post biopsy right mammogram was obtained and shows no migration of the clip from the biopsy site. Incidentally noted is a butterfly-shaped T4 HydroMARK clip in the lower central right breast at 6 o'clock from previous benign biopsy. Hemostasis was easily achieved at the access site using manual compression. Trace blood loss was encountered. The patient tolerated the procedure well without immediate complications and was discharged from the department in good condition. IMPRESSION: 1. Ultrasound-guided core biopsy of an indeterminate focally dilated duct in the subareolar right breast at 1 o'clock, which corresponds to an area of abnormal non-mass enhancement seen by MR. 2. A T3 HydroMARK clip was placed at biopsy site with no migration of the clip seen from the biopsy site on the post biopsy right mammogram. Code ZW - Awaiting further pathology. DSS/ Workstation ID: [id number] Addended: FriJul 03, 2023 9:22 AM by Catrachito Cuba MD ADDENDUM: Pathology - Right breast, 1 o'clock zone A, ultrasound-guided core biopsy: Actively inflamed duct compatible with mastitis. Pathology results are concordant with the imaging findings. [facility] Workstation ID: [id number] Dictated by: CATRACHITO CUBA on FriJul 01, 2023 8:44:54 AM EST Transcribed by: DANIEL CALLAWAY on FriJul 01, 2023 9:21:59 AM EST Finalized by: CATRACHITO CUBA on FriJul 01, 2023 9:57:03 AM EST Normal [facility] Comment on above: Order Comment: Injur y/Trauma or Illness?:Illness/Other How long have you had these symptoms (acute/chronic)?:Acute Reason for exam?:abnormal mri Type of Exam?:Subsequent/Follow-up Additional signs and symptoms?:none at this time US BREAST RIGHT LIMITEDon US BREAST RIGHT LIMITED EXAMINATION: US BREAST RIGHT LIMITED; US BREAST BIOPSY RIGHT; MM FOLLOW UP POST CLIP PLACEMENT 07/01/2023 COMPARISON: Bilateral breast MR with IV contrast dated 06/18/2023. Bilateral diagnostic mammogram and bilateral breast ultrasound dated 04/11/2023. HISTORY: Indeterminate 2.5 cm linear/ductal non-mass enhancement in the anterior right breast on the 06/18/2023 MR. FINDINGS: Preliminary sonographic imaging of the subareolar and periareolar right breast was performed. There is an isolated, focal dilated duct in the subareolar right breast, extending toward 1 o'clock, that corresponds in size and position to the linear/ductal non-mass enhancement seen by MR. Faint low-level echoes are seen within the ectatic duct. No definite color Doppler signal. No other dilated ducts, masses, or cysts are identified in this area. No abnormal lymph nodes are identified in the right axilla. PROCEDURE: After discussing the risks, indications, and treatment alternatives, informed consent was obtained. Pause and confirm protocol was followed. The skin was prepped and draped in the usual rigorous aseptic fashion. Lidocaine was used for local anesthesia. Under sonographic guidance, a 13-gauge introducer needle was advanced to the margin of the ectatic duct in the right breast at 1 o'clock. A series of core biopsies were obtained through the introducer needle using a 14-gauge core biopsy gun. The core samples were placed in formalin and submitted to Pathology. An open cylinder T3 HydroMARK clip was placed at the biopsy site. A post biopsy right mammogram was obtained and shows no migration of the clip from the biopsy site. Incidentally noted is a butterfly-shaped T4 HydroMARK clip in the lower central right breast at 6 o'clock from previous benign biopsy. Hemostasis was easily achieved at the access site using manual compression. Trace blood loss was encountered. The patient tolerated the procedure well without immediate complications and was discharged from the department in good condition. IMPRESSION: 1. Ultrasound-guided core biopsy of an indeterminate focally dilated duct in the subareolar right breast at 1 o'clock, which corresponds to an area of abnormal non-mass enhancement seen by MR. 2. A T3 HydroMARK clip was placed at biopsy site with no migration of the clip seen from the biopsy site on the post biopsy right mammogram. Code ZW - Awaiting further pathology. [facility]/ Workstation ID: [id number] Addended: FriJul 03, 2023 9:22 AM by Catrachito Cuba MD ADDENDUM: Pathology - Right breast, 1 o'clock zone A, ultrasound-guided core biopsy: Actively inflamed duct compatible with mastitis. Pathology results are concordant with the imaging findings. [facility] Workstation ID: [id number] Dictated by: CATRACHITO CUBA on FriJul 01, 2023 8:44:54 AM EST Transcribed by: DANIEL CALLAWAY on FriJul 01, 2023 9:21:59 AM EST Finalized by: CATRACHITO CUBA on FriJul 01, 2023 9:57:03 AM EST Normal [facility] MR BREAST BILATERAL WITH AND WITHOUT CONTRASTon 06-18-2023 MR BREAST BILATERAL WITH AND WITHOUT CONTRAST EXAMINATION: MR BREAST BILATERAL WITH AND WITHOUT CONTRAST HISTORY: Nipple dischargeDx: N64.52 (Nipple discharge) COMPARISON: Bilateral breast ultrasound 04/11/2023; right breast ultrasound 09/21/2021; bilateral mammogram 04/11/2023, 09/11/2021. TECHNIQUE: Sagittal and axial imaging obtained through the breasts before and after contrast administration utilizing multiple pulse sequences. 20 mL Dotarem intravenously administered in a single dosage. Darcy CAD utilized in the interpretation of this exam. FINDINGS: Scattered fibroglandular elements are present. Mild to moderate background enhancement after contrast administration, majority appears to represent parenchymal enhancement. Fluid is seen in milk ducts in the medial anterior right breast on the inversion recovery sequence. After contrast, there is a 2.5 cm linear/ductal area of non mass enhancement beginning at the base of the right nipple and extending into the 1 o'clock position, best demonstrated on axial images 158-169. Given history of nipple discharge this may represent an intraductal papilloma with DCIS not definitely excluded. Biopsy is recommended for definitive evaluation. There is a 6 x 5 mm oval circumscribed mass in the 6 o'clock middle 3rd right breast containing a clip from the previous biopsy revealing a benign fibroadenoma. No adenopathy in the right axilla. No lymph nodes are seen along the internal mammary lymph node chains. In the left breast, no suspicious mass or non mass enhancement is identified. No adenopathy in the left axilla. IMPRESSION: 1. 2.5 cm area of linear/ductal non mass enhancement beginning at the base of the nipple and extending into the anterior 1 o'clock right breast. Biopsy is recommended for definitive evaluation. Second-look ultrasound is suggested to determine if this modality can guide tissue sampling. Otherwise, MR guided biopsy will be required. 2. No MR evidence of malignancy in the left breast. BIRADS - CATEGORY 4 Findings demonstrate a suspicious abnormality. Biopsy should be considered at this time. OVERALL ASSESSMENT - SUSPICIOUS Workstation ID: [id number] Dictated by: PRECIOUS DICKERSON on FriJun 18, 2023 8:38:37 AM EST Transcribed by: PRECIOUS DICKERSON on FriJun 18, 2023 8:38:37 AM EST Finalized by: PRECIOUS DICKERSON on FriJun 18, 2023 8:38:37 AM EST Normal [facility] Comment on above: Order Comment: Injur y/Trauma or Illness?:Illness/Other How long have you had these symptoms (acute/chronic)?:Acute Reason for exam?:abnormal mamm, right breast biopsy, right nipple discharge x9 months, hx of breast cancer in mother Type of Exam?:Initial Additional signs and symptoms?:none MM DIAGNOSTIC EMILE BILATERAL on 04-11-2023 MM DIAGNOSTIC EMILE BILATERAL EXAMINATION: BILATERAL DIGITAL DIAGNOSTIC MAMMOGRAPHY INCLUDING TOMOSYNTHESIS WITH ULTRASOUND OF THE RIGHT BREAST HISTORY: 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 Breast carcinoma in the patient's mother and aunt. Right-sided nipple discharge. COMPARISON: Mammography dated 09/11/2021. BILATERAL DIGITAL MAMMOGRAPHY: CC and MLO views were obtained bilaterally and supplemented with tomosynthesis. Computer-assisted detection utilized in the interpretation of this exam. Mammographic density is characterized as scattered. There is no suspicious-appearing dominant mass. A biopsy clip adjacent to biopsy-proven fibroadenoma in the right breast at 6 o'clock is unchanged. There are no suspicious-appearing clusters of calcification. RIGHT BREAST ULTRASOUND: Scanning was performed in the periareolar right breast due to the history of nipple discharge. Only normal glandular tissue and fat is identified. No solid masses are seen. No cysts are identified. Benign-appearing fat containing lymph nodes are seen incidentally in the axilla. IMPRESSION: 1. No mammographic or sonographic evidence of malignancy. 2. Any further management decisions regarding the right-sided nipple discharge therefore need to be made on clinical grounds. 3. It would be otherwise recommended that the patient return to routine yearly screening mammography. BIRADS: BI-RADS 2 - Benign, no evidence of malignancy. Normal interval followup is recommended in 12 months. OVERALL ASSESSMENT- BENIGN A letter of notification will be sent to the patient regarding the results. 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 Breast carcinoma in the patient's mother and aunt. Right-sided nipple discharge. COMPARISON: Mammography dated 09/11/2021. BILATERAL DIGITAL MAMMOGRAPHY: CC and MLO views were obtained bilaterally and supplemented with tomosynthesis. Computer-assisted detection utilized in the interpretation of this exam. Mammographic density is characterized as scattered. There is no suspicious-appearing dominant mass. A biopsy clip adjacent to biopsy-proven fibroadenoma in the right breast at 6 o'clock is unchanged. There are no suspicious-appearing clusters of calcification. RIGHT BREAST ULTRASOUND: Scanning was performed in the periareolar right breast due to the history of nipple discharge. Only normal glandular tissue and fat is identified. No solid masses are seen. No cysts are identified. Benign-appearing fat containing lymph nodes are seen incidentally in the axilla. IMPRESSION: 1. No mammographic or sonographic evidence of malignancy. 2. Any further management decisions regarding the right-sided nipple discharge therefore need to be made on clinical grounds. 3. It would be otherwise recommended that the patient return to routine yearly screening mammography. BIRADS: BI-RADS 2 - Benign, no evidence of malignancy. Normal interval followup is recommended in 12 months. OVERALL ASSESSMENT- BENIGN A letter of notification will be sent to the patient regarding the results. [facility] Workstation ID: [id number] Dictated by: NAEL MCCRAY on FriApr 11, 2023 2:41:42 PM EST Transcribed by: LAVERNE JALLOH on FriApr 11, 2023 4:07:44 PM EST Finalized by: NAEL MCCRAY on FriApr 11, 2023 4:35:14 PM EST Normal [facility] Comment on above: Order Comment: Injur y/Trauma or Illness?:Illness/Other How long have you had these symptoms (acute/chronic)?:Unknown Reason for exam?:right nipple discharge Type of Exam?:Unknown Additional signs and symptoms?:none Injury/Trauma or Illness?:Illness/Other How long have you had these symptoms (acute/chronic)?:Unknown Reason for exam?:nipple discharge History of cancer?:na Surgeries, chemotherapy, or radiation?:na Type of Exam?:Unknown Additional signs and symptoms?:none CT ABDOMEN PELVIS WITH IV CO NTRAST ONLYon 12-09-2020 CT ABDOMEN PELVIS WITH IV CONTRAST ONLY EXAMINATION: CT ABDOMEN PELVIS WITH IV CONTRAST ONLY HISTORY: ORDERING SYSTEM PROVIDED HISTORY: Abdominal pain, acute, nonlocalized, TECHNOLOGIST PROVIDED HISTORY: Illness/Other Reason for exam: ABDOMINAL PAIN, N/V Encounter Type: Initial Additional signs and symptoms: NO ORDERING SYSTEM PROVIDED DIAGNOSIS CODES: COMPARISON: None TECHNIQUE: CT examination of the abdomen and pelvis following the administration of intravenous contrast. Coronal and sagittal reformations were performed. Dose reduction techniques were achieved by using automated exposure control and/or adjustment of mA and/or kV according to patient size and/or use of iterative reconstruction technique. CONTRAST: IOPAMIDOL 76 % INTRAVENOUS SOLUTION - 75 mL, FINDINGS: Lung bases are clear. Liver, gallbladder, pancreas, spleen, and adrenal glands are within normal limits. The kidneys are symmetric in size without obstruction or visualized stone. Normal caliber of the ureters down to the bladder. The urinary bladder is within normal limits. No free air or free fluid. Normal appearance of the GI tract without significant inflammation, mass, or obstruction. No concerning lymphadenopathy. Normal caliber of the aorta throughout. No acute findings of the osseous structures. IMPRESSION: No acute findings in the abdomen or pelvis. Workstation ID: [id number] Dictated by: LEE DEL TORO on [facility] Dec 09, 2020 2:40:07 AM EDT Transcribed by: LEE DEL TORO on [facility] Dec 09, 2020 2:40:07 AM EDT Finalized by: LEE DEL OTRO on [facility] Dec 09, 2020 2:40:07 AM EDT Normal [facility] Comment on above: Order Comment: Injur y/Trauma or Illness?:Illness/Other How long have you had these symptoms (acute/chronic)?:Acute Reason for exam?:ABDOMINAL PAIN, N/V Type of Exam?:Initial Additional signs and symptoms?:NO US ABDOMEN LIMITED STUDYon 0 12-09-2020 US ABDOMEN LIMITED STUDY EXAMINATION: US ABDOMEN LIMITED STUDY HISTORY: ORDERING SYSTEM PROVIDED HISTORY: Nausea/vomiting, TECHNOLOGIST PROVIDED HISTORY: Illness/Other Reason for Exam: RUQ pain; nausea; vomiting Cancer History: N/A Surgery, Radiation History: N/A Encounter Type: Ongoing Additional Signs and Symptoms: NONE ORDERING SYSTEM PROVIDED DIAGNOSIS CODES: COMPARISON: CT abdomen pelvis 12/09/2020. FINDINGS: Rodrigez-scale and color sonography of the right upper quadrant was performed. The liver is enlarged and echogenic. Hepatic morphology is normal. There is no focal hepatic lesion. The gallbladder, pancreas, right kidney, and intra- and extrahepatic biliary ducts are all normal. No biliary duct dilatation is seen. The imaged IVC and portal vein are normal at the level of the liver. Sonographic Ortiz sign is absent. The common duct measures 0.4 cm. The right kidney measures 11.5 cm in sagittal dimension. IMPRESSION: 1. Fatty liver and hepatomegaly. Hepatic morphology is normal. There is no focal hepatic lesion. 2. No biliary duct dilatation or gallstones. [employer] Workstation ID: [id number] Dictated by: BEBA FRANK on [facility] Dec 09, 2020 3:02:22 AM EDT Transcribed by: KWAKU JALLOH on [facility] Dec 09, 2020 5:26:22 AM EDT Finalized by: BEBA FRANK on [facility] Dec 09, 2020 6:43:30 AM EDT Normal [facility] Comment on above: Order Comment: US Ga llbladder Injury/Trauma or Illness?:Illness/Other How long have you had these symptoms (acute/chronic)?:Acute Reason for exam?:ruq pain; nausea; vomiting History of cancer?:na Surgeries, chemotherapy, or radiation?:na Type of Exam?:Ongoing CT DATED TODAY Additional signs and symptoms?:NONE CT SPINE LUMBAR WITHOUT CONT [facility] 12-06-2019 CT SPINE LUMBAR WITHOUT CONTRAST EXAMINATION: CT SPINE LUMBAR WITHOUT CONTRAST HISTORY: Radiculopathy, minor trauma. COMPARISON: None. TECHNIQUE: CT examination of the lumbar spine without IV contrast. Coronal and sagittal reformations were performed. Dose reduction techniques were achieved by using automated exposure control and/or adjustment of mA and/or kV according to patient size and/or use of iterative reconstruction technique. FINDINGS: There appear to be 5 lumbar type vertebral body with hypoplastic 12th ribs. No acute fracture or dislocation is seen. The vertebral body heights are preserved. The vertebral elements are in anatomic alignment. There is mild to moderate right and mild left neural foraminal narrowing at L4-L5 secondary to a diffuse disc bulge. There does not appear to be any significant spinal canal stenosis. IMPRESSION: 1. No acute fracture or dislocation of the lumbar spine is seen. 2. There is mild to moderate right and mild left neural foraminal narrowing at L4-L5 secondary to a diffuse disc bulge. Normal [facility] CT SPINE THORACIC WITHOUT CO NTRASTon 12-06-2019 CT SPINE THORACIC WITHOUT CONTRAST EXAMINATION: CT SPINE THORACIC WITHOUT CONTRAST HISTORY: Minor trauma. COMPARISON: None. TECHNIQUE: Nonenhanced axial CT imaging of the thoracic spine was performed with sagittal and coronal reconstructions. Dose reduction techniques were achieved by using automated exposure control and/or adjustment of mA and/or kV according to patient size and/or use of iterative reconstruction technique. FINDINGS: No acute thoracic spine fracture or compression deformity is seen. The thoracic vertebral bodies are normal in height and are normally aligned. No spinal stenosis or neural foraminal narrowing is seen. The nonenhanced mediastinum is unremarkable. Imaged portions of the lungs appear clear. IMPRESSION: No acute findings. Normal [facility] CT SPINE LUMBAR WITHOUT CONT RASTon 12-05-2019 IMPRESSION: 1. No acute fracture or dislocation of the lumbar spine is seen. 2. There is mild to moderate right and mild left neural foraminal narrowing at L4-L5 secondary to a diffuse disc bulge. [place] EXAMINATION: CT SPINE LUMBAR WITHOUT CONTRAST HISTORY: Radiculopathy, minor trauma. COMPARISON: None. TECHNIQUE: CT examination of the lumbar spine without IV contrast. Coronal and sagittal reformations were performed. Dose reduction techniques were achieved by using automated exposure control and/or adjustment of mA and/or kV according to patient size and/or use of iterative reconstruction technique. FINDINGS: There appear to be 5 lumbar type vertebral body with hypoplastic 12th ribs. No acute fracture or dislocation is seen. The vertebral body heights are preserved. The vertebral elements are in anatomic alignment. There is mild to moderate right and mild left neural foraminal narrowing at L4-L5 secondary to a diffuse disc bulge. There does not appear to be any significant spinal canal stenosis. [facility] [employer] User, Interfaces 12/05/2019 11:48 PM EDT EXAMINATION: CT SPINE LUMBAR WITHOUT CONTRAST HISTORY: Radiculopathy, minor trauma. COMPARISON: None. TECHNIQUE: CT examination of the lumbar spine without IV contrast. Coronal and sagittal reformations were performed. Dose reduction techniques were achieved by using automated exposure control and/or adjustment of mA and/or kV according to patient size and/or use of iterative reconstruction technique. FINDINGS: There appear to be 5 lumbar type vertebral body with hypoplastic 12th ribs. No acute fracture or dislocation is seen. The vertebral body heights are preserved. The vertebral elements are in anatomic alignment. There is mild to moderate right and mild left neural foraminal narrowing at L4-L5 secondary to a diffuse disc bulge. There does not appear to be any significant spinal canal stenosis. IMPRESSION IMPRESSION: 1. No acute fracture or dislocation of the lumbar spine is seen. 2. There is mild to moderate right and mild left neural foraminal narrowing at L4-L5 secondary to a diffuse disc bulge. [facility] ([place], [place])[employer] CT SPINE THORACIC WITHOUT CO NTRASTon 12-05-2019 IMPRESSION: No acute findings. [facility] ([place], [place])[employer] [facility] EXAMINATION: CT SPINE THORACIC WITHOUT CONTRAST HISTORY: Minor trauma. COMPARISON: None. TECHNIQUE: Nonenhanced axial CT imaging of the thoracic spine was performed with sagittal and coronal reconstructions. Dose reduction techniques were achieved by using automated exposure control and/or adjustment of mA and/or kV according to patient size and/or use of iterative reconstruction technique. FINDINGS: No acute thoracic spine fracture or compression deformity is seen. The thoracic vertebral bodies are normal in height and are normally aligned. No spinal stenosis or neural foraminal narrowing is seen. The nonenhanced mediastinum is unremarkable. Imaged portions of the lungs appear clear. [facility] ([place], [place])[employer], Interfaces - 12/05/2019 11:39 PM EDT EXAMINATION: CT SPINE THORACIC WITHOUT CONTRAST HISTORY: Minor trauma. COMPARISON: None. TECHNIQUE: Nonenhanced axial CT imaging of the thoracic spine was performed with sagittal and coronal reconstructions. Dose reduction techniques were achieved by using automated exposure control and/or adjustment of mA and/or kV according to patient size and/or use of iterative reconstruction technique. FINDINGS: No acute thoracic spine fracture or compression deformity is seen. The thoracic vertebral bodies are normal in height and are normally aligned. No spinal stenosis or neural foraminal narrowing is seen. The nonenhanced mediastinum is unremarkable. Imaged portions of the lungs appear clear. IMPRESSION IMPRESSION: No acute findings. [facility] ([place], [place])[employer] [facility] [employer]Con 06-25-2019 ABSOLUTE BAS 0.1 10*3/uL Normal 0.0-0.2 [facility] Comment on above: Performed By: #### A CBC #### [place] [address] ABSOLUTE EOS 0.10 10*3/uL Normal 0.0-0.7 [facility] Comment on above: Performed By: #### A CBC #### Testing performed at [address] [address] ABSOLUTE NEUTROPHIL COUNT 6.1 10*3/uL Normal 1.4-6.5 [facility] Comment on above: Performed By: #### A CBC #### Testing performed at [address] [address] Basophils/100 WBC (Bld) 0.7 % Normal 0.0-2.0 [facility] Comment on above: Performed By: #### A CBC #### Testing performed at [address] [address] DTYPE AUTO DIFF Normal [facility] Comment on above: Performed By: #### A CBC #### Testing performed at [address] [address] Eosinophils/100 WBC (Bld) 1.4 % Normal 0.0-11.0 [facility] Comment on above: Performed By: #### A CBC #### Testing performed at [address] [address] Lymphocytes (Bld) [#/Vol] 2.40 10*3/uL Normal 1.2-3.4 [facility] Comment on above: Performed By: #### A CBC #### Testing performed at [address] [address] Lymphocytes/100 WBC (Bld) 26.2 % Normal 20.0-55.0 [facility] Comment on above: Performed By: #### A CBC #### Testing performed at [address] [address] Monocytes (Bld) [#/Vol] 0.6 10*3/uL Normal 0.0-0.7 [facility] Comment on above: Performed By: #### A CBC #### Testing performed at [address] [address] Monocytes/100 WBC (Bld) 6.1 % Normal 0.0-10.0 [facility] Comment on above: Performed By: #### A CBC #### Testing performed at [address] [address] Neutrophils/100 WBC (Bld) 65.6 % Normal 37.0-75.0 [facility] Comment on above: Performed By: #### A CBC #### Testing performed at [address] [address] Erythrocyte distribution width (RBC) [Ratio] 15.5 % High 11.5-14.5 [facility] Comment on above: Performed By: #### A CBC #### Testing performed at [address] [address] Hematocrit (Bld) [Volume fraction] 41.4 % Normal 36.0-48.0 [facility] Comment on above: Performed By: #### A CBC #### Testing performed at [address] [address] Hemoglobin (Bld) [Mass/Vol] 14.1 g/dL Normal 12.0-16.0 [facility] Comment on above: Performed By: #### A CBC #### Testing performed at [address] [address] MCH (RBC) [Entitic mass] 30.9 pg Normal 26.0-35.0 [facility] Comment on above: Performed By: #### A CBC #### Testing performed at [address] [address] MCHC (RBC) [Mass/Vol] 34.1 g/dL Normal 27.0-37.0 [facility] Comment on above: Performed By: #### A CBC #### Testing performed at [address] [address] MCV (RBC) [Entitic vol] 90.4 fL Normal 80.0-100.0 [facility] Comment on above: Performed By: #### A CBC #### Testing performed at [address] [address] Platelet mean volume (Bld) [Entitic vol] 8.2 fL Normal 7.4-11.0 [facility] Comment on above: Performed By: #### A CBC #### Testing performed at [place] [id number] Platelets (Bld) [#/Vol] 350 10*3/uL Normal 130.0-400.0 [facility] Comment on above: Performed By: #### A CBC #### [place] [address] RBC (Bld) [#/Vol] 4.58 10*6/uL Normal 4.0-5.4 [facility] Comment on above: Performed By: #### A CBC #### Testing performed at [place] [id number] WBC (Bld) [#/Vol] 9.3 10*3/uL Normal 3.6-11.0 [facility] Comment on above: Performed By: #### A CBC #### [place] [address] CBC, EDIF, [employer] 2019 ABSOLUTE BASOPHIL COUNT 0.1 10*3/uL 0 - 0.2 10*3/uL [facility] [place] [facility] Basophils/100 WBC (Bld) 0.7 % 0 - 2 % [facility] Differential cell count method Nom (Bld) AUTO DIFF % [facility] Eosinophils (Bld) [#/Vol] 0.10 10*3/uL 0 - 0.7 10*3/uL [facility] Eosinophils/100 WBC (Bld) 1.4 % 0 - 11 % [facility] Erythrocyte distribution width (RBC) [Ratio] 15.5 % High 11.5 - 14.5 % [facility] Hematocrit (Bld) [Volume fraction] 41.4 % 36 - 48 % [facility] Hemoglobin (Bld) [Mass/Vol] 14.1 g/dL [facility] Interpretation and review of laboratory results Abnormal [facility] Lymphocytes (Bld) [#/Vol] 2.40 10*3/uL 1.2 - 3.4 10*3/uL [facility] Lymphocytes/100 WBC (Bld) 26.2 % 20 - 55 % [facility] MCH (RBC) [Entitic mass] 30.9 pg 26 - 35 PG [facility] MCHC (RBC) [Mass/Vol] 34.1 g/dL [facility] MCV (RBC) [Entitic vol] 90.4 fL [facility] Monocytes (Bld) [#/Vol] 0.6 10*3/uL 0 - 0.7 10*3/uL [facility] Monocytes/100 WBC (Bld) 6.1 % 0 - 10 % [facility] Neutrophils (Bld) [#/Vol] 6.1 10*3/uL 1.4 - 6.5 10*3/uL [facility] Neutrophils/100 WBC (Bld) 65.6 % 37 - 75 % [facility] Platelet mean volume (Bld) [Entitic vol] 8.2 fL [facility] Platelets (Bld) [#/Vol] 350 10*3/uL 130 - 400 10*3/uL [facility] RBC (Bld) [#/Vol] 4.58 10*6/uL 4 - 5.4 10*6/uL [facility] WBC (Bld) [#/Vol] 9.3 10*3/uL 3.6 - 11 10*3/uL [facility] CMP FASTINGon 06-25-2019 A:G RATIO 1.3 RATIO Normal 1.3-2.2 [facility] Comment on above: Performed By: #### A CBC #### [place] [address] Albumin [Mass/Vol] 4.5 G/dl Normal 3.5-5.0 [facility] Comment on above: Performed By: #### A CBC #### [place] [address] ALP [Catalytic activity/Vol] 76 U/L Normal 38-126 [facility] Comment on above: Performed By: #### A CBC #### Testing performed at [address] [address] ALT [Catalytic activity/Vol] 32 U/L Normal 9-52 [facility] Comment on above: Performed By: #### A CBC #### Testing performed at [address] [address] AST [Catalytic activity/Vol] 23 U/L Normal 14-36 [facility] Comment on above: Performed By: #### A CBC #### Testing performed at [address] [address] Bilirubin [Mass/Vol] 0.3 mg/dL Normal 0.2-1.3 [facility] Comment on above: Performed By: #### A CBC #### Testing performed at [address] [address] Calcium [Mass/Vol] 9.2 mg/dL Normal 8.4-10.2 [facility] Comment on above: Performed By: #### A CBC #### Testing performed at [address] [address] Chloride [Moles/Vol] 101 mmol/L Normal 98-107 [facility] Comment on above: Result Comment: Ryan berg note: Triglyceride levels of 600mg/dL or higher may positively bias chloride results by approximately 2.1 mmol Performed By: #### A CBC #### Testing performed at [address] [address] CO2 [Moles/Vol] 26 mmol/L Normal 22-30 [facility] Comment on above: Performed By: #### A CBC #### Testing performed at [address] [address] Creatinine [Mass/Vol] 0.71 mg/dL Normal 0.7-1.2 [facility] Comment on above: Performed By: #### A CBC #### Testing performed at [place] [id number] [place] [address] EST. GFR, >60 Normal [facility] Comment on above: Performed By: #### A CBC #### Testing performed at [address] [address] EST. GFR,Non >60 Normal [facility] Comment on above: Performed By: #### A CBC #### Testing performed at [address] [address] GFR/1.73 sq M predicted among non-blacks MDRD (S/P/Bld) [Vol rate/Area] Average GFR for 30-39 years old = 109. Normal [facility] Comment on above: Result Comment: Screen Repairer Crusher rian Kidney disease, GFR = <60. Kidney failure, GFR = <15. The GFR estimate is not adjusted for extreme body surface area or acute process, nor has it been validated for women or ethnic groups other than and . Performed By: #### A CBC #### Testing performed at [address] [address] Glucose [Mass/Vol] 74 mg/dL Normal 70-100 [facility] Comment on above: Result Comment: NORMAL <100 mg/dL PREDIABETES 101-126 mg/dL DIABETES 126 mg/dL or higher Performed By: #### A CBC #### Testing performed at [address] [address] Potassium [Moles/Vol] 4.0 mmol/L Normal 3.5-5.1 [facility] Comment on above: Performed By: #### A CBC #### Testing performed at [address] [address] Protein [Mass/Vol] 8.1 g/dL Normal 6.3-8.2 [facility] Comment on above: Performed By: #### A CBC #### Testing performed at [address] [address] Sodium [Moles/Vol] 138 mmol/L Normal 137-145 [facility] Comment on above: Performed By: #### A CBC #### [place] [address] Urea nitrogen [Mass/Vol] 17 mg/dL Normal 7-20 [facility] Comment on above: Performed By: #### A CBC #### [place] [address] COMPREHENSIVE METABOLIC PANE [place] 06-25-2019 Albumin [Mass/Vol] 4.5 G/dl 3.5 - 5 G/dl [facility] Albumin/Globulin [Mass ratio] 1.3 {ratio} [facility] ALP [Catalytic activity/Vol] 76 U/L [facility] ALT [Catalytic activity/Vol] 32 U/L [facility] AST [Catalytic activity/Vol] 23 U/L [facility] Bilirubin [Mass/Vol] 0.3 mg/dL [facility] Calcium [Mass/Vol] 9.2 mg/dL [facility] Chloride [Moles/Vol] 101 mmol/L [facility] Comment on above: Please note: Triglyc eride levels of 600mg/dL or higher may positively bias chloride results by approximately 2.1 mmol CO2 [Moles/Vol] 26 mmol/L [facility] Creatinine [Mass/Vol] 0.71 mg/dL [facility] GFR/1.73 sq M predicted among blacks MDRD (S/P/Bld) [Vol rate/Area] mL/min/{1.73_m2} ml/min/1.73sq.m [facility] GFR/1.73 sq M predicted among non-blacks MDRD (S/P/Bld) [Vol rate/Area] mL/min/{1.73_m2} ml/min/1.73sq.m [facility] GFR/1.73 sq M predicted among non-blacks MDRD (S/P/Bld) [Vol rate/Area] Average GFR for 30-39 years old = 109. [facility] Comment on above: Chronic Kidney disea se, GFR = <60. Kidney failure, GFR = <15. The GFR estimate is not adjusted for extreme body surface area or acute process, nor has it been validated for women or ethnic groups other than and . Glucose post fast [Mass/Vol] 74 mg/dL [facility] Comment on above: NORMAL <100 mg/dL PREDIABETES 101-126 mg/dL DIABETES 126 mg/dL or higher Potassium [Moles/Vol] 4.0 mmol/L [facility] Protein [Mass/Vol] 8.1 g/dL [facility] Sodium [Moles/Vol] 138 mmol/L [facility] Urea nitrogen [Mass/Vol] 17 mg/dL [facility] [facility] 01-19-2019 ABSOLUTE BAS 0.1 10*3/uL Normal 0.0-0.2 [facility] ABSOLUTE EOS 0.20 10*3/uL Normal 0.0-0.7 [facility] ABSOLUTE NEUTROPHIL COUNT 6.6 10*3/uL High 1.4-6.5 [facility] Basophils/100 WBC (Bld) 0.6 % Normal 0.0-2.0 [facility] DTYPE AUTO DIFF Normal [facility] Eosinophils/100 WBC (Bld) 1.6 % Normal 0.0-11.0 [facility] Lymphocytes (Bld) [#/Vol] 2.80 10*3/uL Normal 1.2-3.4 [facility] Lymphocytes/100 WBC (Bld) 27.1 % Normal 20.0-55.0 [facility] Monocytes (Bld) [#/Vol] 0.6 10*3/uL Normal 0.0-0.7 [facility] Monocytes/100 WBC (Bld) 5.9 % Normal 0.0-10.0 [facility] Neutrophils/100 WBC (Bld) 64.8 % Normal 37.0-75.0 [facility] Erythrocyte distribution width (RBC) [Ratio] 14.5 % Normal 11.5-14.5 [facility] Hematocrit (Bld) [Volume fraction] 41.6 % Normal 36.0-48.0 [facility] Hemoglobin (Bld) [Mass/Vol] 14.4 g/dL Normal 12.0-16.0 [facility] MCH (RBC) [Entitic mass] 31.2 pg Normal 26.0-35.0 [facility] MCHC (RBC) [Mass/Vol] 34.6 g/dL Normal 27.0-37.0 [facility] MCV (RBC) [Entitic vol] 90.1 fL Normal 80.0-100.0 [facility] Platelet mean volume (Bld) [Entitic vol] 8.3 fL Normal 7.4-11.0 [facility] Platelets (Bld) [#/Vol] 305 10*3/uL Normal 130.0-400.0 [facility] RBC (Bld) [#/Vol] 4.62 10*6/uL Normal 4.0-5.4 [facility] WBC (Bld) [#/Vol] 10.2 10*3/uL Normal 3.6-11.0 [facility] CMP FASTINGon 01-19-2019 A:G RATIO 1.1 RATIO Low 1.3-2.2 [facility] Albumin [Mass/Vol] 4.0 G/dl Normal 3.5-5.0 [facility] ALP [Catalytic activity/Vol] 83 U/L Normal 38-126 [facility] ALT [Catalytic activity/Vol] 30 U/L Normal 9-52 [facility] AST [Catalytic activity/Vol] 28 U/L Normal 14-36 [facility] Bilirubin [Mass/Vol] 0.4 mg/dL Normal 0.2-1.3 [facility] Calcium [Mass/Vol] 9.4 mg/dL Normal 8.4-10.2 [facility] Chloride [Moles/Vol] 103 mmol/L Normal 98-107 [facility] Comment on above: Result Comment: Ryan berg note: Triglyceride levels of 600mg/dL or higher may positively bias chloride results by approximately 2.1 mmol CO2 [Moles/Vol] 27 mmol/L Normal 22-30 [facility] Creatinine [Mass/Vol] 0.71 mg/dL Normal 0.7-1.2 [facility] EST. GFR, >60 Normal [facility] EST. GFR,Non >60 Normal [facility] GFR/1.73 sq M predicted among non-blacks MDRD (S/P/Bld) [Vol rate/Area] Average GFR for 30-39 years old = 109. Normal [facility] Comment on above: Result Comment: Screen Repairer Crusher rian Kidney disease, GFR = <60. Kidney failure, GFR = <15. The GFR estimate is not adjusted for extreme body surface area or acute process, nor has it been validated for women or ethnic groups other than and . Glucose [Mass/Vol] 106 mg/dL High 70-100 [facility] Comment on above: Result Comment: NORMAL <100 mg/dL PREDIABETES 101-126 mg/dL DIABETES 126 mg/dL or higher Potassium [Moles/Vol] 3.7 mmol/L Normal 3.5-5.1 [facility] Protein [Mass/Vol] 7.6 g/dL Normal 6.3-8.2 [facility] Sodium [Moles/Vol] 139 mmol/L Normal 137-145 [facility] Urea nitrogen [Mass/Vol] 12 mg/dL Normal 7-20 [facility] LIPID PROFILEon 01-19-2019 Cholesterol [Mass/Vol] 149 mg/dL Normal 107-217 [facility] Cholesterol in HDL [Mass/Vol] 33 mg/dL Normal 33-75 [facility] Cholesterol in LDL [Mass/Vol] 106 mg/dL Normal [facility] Cholesterol in VLDL [Mass/Vol] 10 mg/dL Normal 5.0-25 [facility] Cholesterol.total/Ch olesterol in HDL [Mass ratio] 4.52 {ratio} Normal [facility] Comment on above: Result Comment: RISK TOTAL/HDL RATIO MEN WOMEN 1/2 AVERAGE 3.43 3.27 AVERAGE 4.97 4.44 2X AVERAGE 9.55 7.05 3X AVERAGE 23.99 11.04 Triglyceride [Mass/Vol] 50 mg/dL Normal 0-150 [facility] TSH,REFLEX FREE T4on 019 TSH,REFLEX FREE T4 2.420 uIU/ML Normal 0.46-4.68 [facility] XR FOOT RIGHT 3+ VIEWS (ANA MATHEWS)on 10-13-2018 XR FOOT RIGHT 3+ VIEWS (STANDARD) EXAMINATION: XR FOOT RIGHT 3+ VIEWS (STANDARD) HISTORY: ORDERING SYSTEM PROVIDED HISTORY: pain for 2 weeks, heel and lateral foot area, TECHNOLOGIST PROVIDED HISTORY: Injury/Trauma Reason for exam: pain Cancer History: na Surgery, RadiationHistory: na Encounter Type: Initial Mechanism of injury: running on treadmill ORDERING SYSTEM PROVIDED DIAGNOSIS CODES: M79.671 Foot pain, right TECHNIQUE: Three views of the right foot. COMPARISON: None available. FINDINGS: No acute fracture or dislocation. There is a 1 cm ovoid well-corticated ossific density at the dorsal aspect of the anterior talus. Calcaneal spurring measures 6 mm at the origin of the plantar fascia and 4 mm at the insertion of the Achilles tendon. IMPRESSION: 1. Calcaneal spurring at the origin of the plantar fascia and at the insertion of the Achilles tendon. 2. A well-corticated ossific density at the dorsal aspect of the anterior talus is favored to be an accessory ossicle (os supratalare). Sequelae of prior trauma is also a consideration. 3. No acute fracture or dislocation. [employer] Workstation ID: [id number] Dictated by: BRIT RIVERA on FriOct 13, 2018 11:33:21 AM EDT Transcribed by: ABDIRIZAK FERNANDEZ on FriOct 13, 2018 11:39:27 AM EDT Finalized by: BRIT RIVERA on FriOct 13, 2018 3:49:26 PM EDT [facility] Comment on above: Order Comment: Injur y/Trauma or Illness?:Injury/Trauma How long have you had these symptoms (acute/chronic)?:Acute Reason for exam?:pain History of cancer?:na Surgeries, chemotherapy, or radiation?:na Type of Exam?:Initial Mechanism of injury?:running on treadmill Vital Signs Date Time Vital Sign Value Performing Clinician Facility 08-19-2023 09:00-0400 Diastolic blood pressure 91 mm[Hg] Ariana Garza PA-C Work Phone: [facility] 08-19-2023 09:00-0400 Systolic blood pressure 129 mm[Hg] Ariana Garza PA-C Work Phone: [facility] 08-19-2023 08:38-0400 Body height 157.5 cm Ariana Conniff PA-C Work Phone: [facility] 08-19-2023 08:38-0400 Body mass index (BMI) [Ratio] 54.43 kg/m2 Ariana Conniff PA-C Work Phone: [facility] 08-19-2023 08:38-0400 Body weight 134.99 kg Ariana Conniff PA-C Work Phone: [facility] 08-19-2023 08:38-0400 Heart rate 86 /min Ariana Conniff PA-C Work Phone: [facility] 08-19-2023 08:38-0400 SaO2% (BldA) [Mass fraction] 97 % Ariana Conniff PA-C Work Phone: [facility] 05-14-2023 10:15-0500 Body height 157.5 cm Ashley Mcdaniel III, MD Work Phone: [facility] 05-14-2023 10:15-0500 Body mass index (BMI) [Ratio] 54.29 kg/m2 Ashley Mcdaniel III, MD Work Phone: [facility] 05-14-2023 10:15-0500 Body weight 134.63 kg Ashley Mcdaniel III, MD Work Phone: [facility] 05-14-2023 10:15-0500 Diastolic blood pressure 83 mm[Hg] Ashley Mcdaniel III, MD Work Phone: [facility] 05-14-2023 10:15-0500 Heart rate 95 /min Ashley Mcdaniel III, MD Work Phone: [facility] 05-14-2023 10:15-0500 SaO2% (BldA) [Mass fraction] 95 % Ashley Mcdaniel III, MD Work Phone: [facility] 05-14-2023 10:15-0500 Systolic blood pressure 139 mm[Hg] Ashley Mcdaniel III, MD Work Phone: [facility] 04-01-2023 10:01-0500 Diastolic blood pressure 90 mm[Hg] Ariana Conniff PA-C Work Phone: [facility] 04-01-2023 10:01-0500 Systolic blood pressure 128 mm[Hg] Ariana Conniff PA-C Work Phone: [facility] 04-01-2023 09:40-0500 Body height 157.5 cm Ariana Conniff PA-C Work Phone: [facility] 04-01-2023 09:40-0500 Body mass index (BMI) [Ratio] 53.96 kg/m2 Ariana Conniff PA-C Work Phone: [facility] 04-01-2023 09:40-0500 Body weight 133.81 kg Ariana Conniff PA-C Work Phone: [facility] 04-01-2023 09:40-0500 Heart rate 96 /min Ariana Conniff PA-C Work Phone: [facility] 04-01-2023 09:40-0500 SaO2% (BldA) [Mass fraction] 94 % Ariana Conniff PA-C Work Phone: [facility] 01-23-2023 09:44-0400 Body height 157.5 cm Ariana Conniff PA-C Work Phone: [facility] 01-23-2023 09:44-0400 Body mass index (BMI) [Ratio] 53.41 kg/m2 Ariana Conniff PA-C Work Phone: [facility] 01-23-2023 09:44-0400 Body weight 132.45 kg Ariana Conniff PA-C Work Phone: [facility] 01-23-2023 09:44-0400 Diastolic blood pressure 88 mm[Hg] Ariana Conniff PA-C Work Phone: [facility] 01-23-2023 09:44-0400 Heart rate 91 /min Ariana Conniff PA-C Work Phone: [facility] 01-23-2023 09:44-0400 SaO2% (BldA) [Mass fraction] 98 % Ariana Conniff PA-C Work Phone: [facility] 01-23-2023 09:44-0400 Systolic blood pressure 120 mm[Hg] Ariana Conniff PA-C Work Phone: [facility] 09-04-2022 09:14-0400 Diastolic blood pressure 80 mm[Hg] Ariana Conniff PA-C Work Phone: [facility] 09-04-2022 09:14-0400 Systolic blood pressure 121 mm[Hg] Ariana Conniff PA-C Work Phone: [facility] 09-04-2022 08:56-0400 Body height 157.5 cm Ariana Conniff PA-C Work Phone: [facility] 09-04-2022 08:56-0400 Body mass index (BMI) [Ratio] 53.22 kg/m2 Ariana Conniff PA-C Work Phone: [facility] 09-04-2022 08:56-0400 Body weight 132 kg Ariana Conniff PA-C Work Phone: [facility] 09-04-2022 08:56-0400 Heart rate 88 /min Ariana Conniff PA-C Work Phone: [facility] 09-04-2022 08:56-0400 SaO2% (BldA) [Mass fraction] 96 % Ariana Conniff PA-C Work Phone: [facility] 05-28-2022 10:51-0500 Body height 157.5 cm Ariana Conniff PA-C Work Phone: [facility] 05-28-2022 10:51-0500 Body mass index (BMI) [Ratio] 52.86 kg/m2 Ariana Conniff PA-C Work Phone: [facility] 05-28-2022 10:51-0500 Body weight 131.09 kg Ariana Conniff PA-C Work Phone: [facility] 05-28-2022 10:51-0500 Diastolic blood pressure 69 mm[Hg] Ariana Conniff PA-C Work Phone: [facility] 05-28-2022 10:51-0500 Heart rate 92 /min Ariana Conniff PA-C Work Phone: [facility] 05-28-2022 10:51-0500 SaO2% (BldA) [Mass fraction] 95 % Ariana Conniff PA-C Work Phone: [facility] 05-28-2022 10:51-0500 Systolic blood pressure 139 mm[Hg] Ariana Conniff PA-C Work Phone: [facility] 03-05-2022 15:41-0500 Body height 157.5 cm Ariana Conniff PA-C Work Phone: [facility] 03-05-2022 15:41-0500 Body mass index (BMI) [Ratio] 54.69 kg/m2 Ariana Conniff PA-C Work Phone: [facility] 03-05-2022 15:41-0500 Body weight 135.63 kg Ariana Conniff PA-C Work Phone: [facility] 03-05-2022 15:41-0500 Diastolic blood pressure 89 mm[Hg] Ariana Conniff PA-C Work Phone: [facility] 03-05-2022 15:41-0500 Heart rate 83 /min Ariana Conniff PA-C Work Phone: [facility] 03-05-2022 15:41-0500 SaO2% (BldA) [Mass fraction] 96 % Ariana Conniff PA-C Work Phone: [facility] 03-05-2022 15:41-0500 Systolic blood pressure 132 mm[Hg] Ariana Conniff PA-C Work Phone: [facility] 02-05-2022 09:38-0400 Diastolic blood pressure 89 mm[Hg] Ariana Conniff PA-C Work Phone: [facility] 02-05-2022 09:38-0400 Systolic blood pressure 140 mm[Hg] Ariana Conniff PA-C Work Phone: [facility] 02-05-2022 08:42-0400 Body height 157.5 cm Ariana Conniff PA-C Work Phone: [facility] 02-05-2022 08:42-0400 Body mass index (BMI) [Ratio] 54.69 kg/m2 Ariana Conniff PA-C Work Phone: [facility] 02-05-2022 08:42-0400 Body weight 135.63 kg Ariana Conniff PA-C Work Phone: [facility] 02-05-2022 08:42-0400 Heart rate 100 /min Ariana Conniff PA-C Work Phone: [facility] 02-05-2022 08:42-0400 SaO2% (BldA) [Mass fraction] 96 % Ariana Conniff PA-C Work Phone: [facility] 10-01-2021 09:28-0400 Body height 157.5 cm Ashley Mcdaniel III, MD Work Phone: [facility] 10-01-2021 09:28-0400 Body mass index (BMI) [Ratio] 53.55 kg/m2 Ashley Mcdaniel III, MD Work Phone: [facility] 10-01-2021 09:28-0400 Body weight 132.81 kg Ashley Mcdaniel III, MD Work Phone: [facility] 10-01-2021 09:28-0400 Diastolic blood pressure 88 mm[Hg] Ashley Mcdaniel III, MD Work Phone: [facility] 10-01-2021 09:28-0400 Heart rate 87 /min Ashley Mcdaniel III, MD Work Phone: [facility] 10-01-2021 09:28-0400 SaO2% (BldA) [Mass fraction] 96 % Ashley Mcdaniel III, MD Work Phone: [facility] 10-01-2021 09:28-0400 Systolic blood pressure 128 mm[Hg] Ashley Mcdaniel III, MD Work Phone: [facility] 09-10-2021 11:02-0400 Body height 157.5 cm Priya Jorge HOTEL CUSTODIAN Work Phone: [facility] 09-10-2021 11:02-0400 Body mass index (BMI) [Ratio] 52.57 kg/m2 Priya Zamorayon HOTEL CUSTODIAN Work Phone: [facility] 09-10-2021 11:02-0400 Body weight 130.36 kg Priya Jorge HOTEL CUSTODIAN Work Phone: [facility] 09-10-2021 11:02-0400 Diastolic blood pressure 94 mm[Hg] Priya Zamorayon HOTEL CUSTODIAN Work Phone: [facility] 09-10-2021 11:02-0400 Heart rate 89 /min Priya Jorge HOTEL CUSTODIAN Work Phone: [facility] 09-10-2021 11:02-0400 Systolic blood pressure 139 mm[Hg] Priya Jorge HOTEL CUSTODIAN Work Phone: [facility] 08-04-2020 10:26-0400 BMI (Body Mass Index) 47.47 kg/m2 [facility] 08-04-2020 [id number] Body Temperature 98.2 [degF] [facility] 08-04-2020 10:26-0400 Body weight 121.56 kg [facility] 08-04-2020 10:26-0400 BP Diastolic 87 mm[Hg] [facility] 08-04-2020 10:26-0400 BP Systolic 133 mm[Hg] [facility] 08-04-2020 10:26-0400 Height 160 cm [facility] 08-04-2020 10:26-0400 Pulse (Heart Rate) 79 /min [facility] 08-04-2020 10:26-0400 Pulse Oximetry 96 % Edward Tommy [facility] 12-14-2019 09:32-0400 BMI (Body Mass Index) 49.19 kg/m2 [facility] 12-14-2019 09:32-0400 Body Temperature 98.1 [degF] [facility] 12-14-2019 09:32-0400 Body weight 134.08 kg [facility] 12-14-2019 09:32-0400 BP Diastolic 88 mm[Hg] [facility] 12-14-2019 09:32-0400 BP Systolic 130 mm[Hg] [facility] 12-14-2019 09:32-0400 Height 165.1 cm [facility] 12-14-2019 09:32-0400 Pulse (Heart Rate) 95 /min [facility] 12-14-2019 09:32-0400 Pulse Oximetry 96 % [facility] 12-07-2019 10:33-0400 BMI (Body Mass Index) 49.34 kg/m2 [facility] 12-07-2019 10:33-0400 Body Temperature 98.8 [degF] [facility] 12-07-2019 10:33-0400 Body weight 133.36 kg [facility] 12-07-2019 10:33-0400 BP Diastolic 74 mm[Hg] [facility] 12-07-2019 10:33-0400 BP Systolic 126 mm[Hg] [facility] 12-07-2019 10:33-0400 Height 164.4 cm [facility] 12-07-2019 10:33-0400 Pulse (Heart Rate) 84 /min [facility] 12-07-2019 10:33-0400 Pulse Oximetry 97 % [facility] 12-07-2019 10:33-0400 Respiratory Rate 14 /min [facility] 12-06-2019 00:21-0400 BP Diastolic 92 mm[Hg] [facility] 12-06-2019 00:21-0400 BP Systolic 138 mm[Hg] [facility] 12-06-2019 00:21-0400 Pulse (Heart Rate) 88 /min [facility] 12-06-2019 00:21-0400 Respiratory Rate 18 /min [facility] 12-05-2019 21:32-0400 Body Temperature 99.1 [degF] [facility] 12-05-2019 21:32-0400 Pulse Oximetry 97 % [facility] 06-25-2019 13:18-0500 BMI (Body Mass Index) 49.86 kg/m2 [facility] 06-25-2019 13:18-0500 Body Temperature 98.1 [degF] [facility] 06-25-2019 13:18-0500 Body weight 123.65 kg [facility] 06-25-2019 13:18-0500 BP Diastolic 82 mm[Hg] [facility] 06-25-2019 13:18-0500 BP Systolic 160 mm[Hg] [facility] 06-25-2019 13:18-0500 Height 157.5 cm [facility] 06-25-2019 13:18-0500 Pulse (Heart Rate) 85 /min [facility] 06-25-2019 13:18-0500 Pulse Oximetry 98 % [facility] 06-25-2019 13:18-0500 Respiratory Rate 14 /min [facility] 06-10-2019 08:16-0500 BMI (Body Mass Index) 49.35 kg/m2 [facility] 06-10-2019 08:16-0500 Body Temperature 97.39 [degF] [facility] 06-10-2019 08:16-0500 Body weight 122.38 kg [facility] 06-10-2019 08:16-0500 BP Diastolic 80 mm[Hg] [facility] 06-10-2019 08:16-0500 BP Systolic 110 mm[Hg] [facility] 06-10-2019 08:16-0500 Height 157.5 cm [facility] 06-10-2019 08:16-0500 Pulse (Heart Rate) 94 /min [facility] 06-10-2019 08:16-0500 Pulse Oximetry 97 % [facility] 06-10-2019 08:16-0500 Respiratory Rate 14 /min [facility] 03-17-2019 09:02-0500 BMI (Body Mass Index) 49.49 kg/m2 [facility] 03-17-2019 09:02-0500 Body Temperature 98.1 [degF] [facility] 03-17-2019 09:02-0500 Body weight 122.74 kg [facility] 03-17-2019 09:02-0500 BP Diastolic 74 mm[Hg] [facility] 03-17-2019 09:02-0500 BP Systolic 110 mm[Hg] [facility] 03-17-2019 09:02-0500 Height 157.5 cm [facility] 03-17-2019 09:02-0500 Pulse (Heart Rate) 100 /min [facility] 03-17-2019 09:02-0500 Pulse Oximetry 97 % [facility] 03-17-2019 09:02-0500 Respiratory Rate 16 /min [facility] 01-25-2019 13:10-0400 BMI (Body Mass Index) 51.4 kg/m2 [facility] 01-25-2019 13:10-0400 Body Temperature 98.4 [degF] [facility] 01-25-2019 13:10-0400 Body weight 127.46 kg [facility] 01-25-2019 13:10-0400 BP Diastolic 80 mm[Hg] [facility] 01-25-2019 13:10-0400 BP Systolic 117 mm[Hg] [facility] 01-25-2019 13:10-0400 Height 157.5 cm [facility] 01-25-2019 13:10-0400 Pulse (Heart Rate) 84 /min [facility] 01-25-2019 13:10-0400 Pulse Oximetry 97 % [facility] 01-25-2019 13:10-0400 Respiratory Rate 16 /min [facility] 11-24-2018 13:35-0400 BMI (Body Mass Index) 48.08 kg/m2 [facility] 11-24-2018 13:35-0400 Body Temperature 98.29 [degF] [facility] 11-24-2018 13:35-0400 Body weight 130.91 kg [facility] 11-24-2018 13:35-0400 BP Diastolic 84 mm[Hg] [facility] 11-24-2018 13:35-0400 BP Systolic 108 mm[Hg] [facility] 11-24-2018 13:35-0400 Height 165 cm [facility] 11-24-2018 13:35-0400 Pulse (Heart Rate) 85 /min [facility] 11-24-2018 13:35-0400 Pulse Oximetry 97 % [facility] 11-24-2018 13:35-0400 Respiratory Rate 14 /min [facility] 10-13-2018 11:26-0400 BP Diastolic 89 mm[Hg] [facility] Comment on above: [facility] [place]-13-2018 11:26-0400 BP Systolic 142 mm[Hg] [facility] Comment on above: [facility] [facility] 10-13-2018 11:02-0400 BMI (Body Mass Index) 44.99 kg/m2 [facility] 10-13-2018 11:02-0400 Body Temperature 98.29 [degF] [facility] 10-13-2018 11:02-0400 Height 160 cm [facility] 10-13-2018 11:02-0400 Pulse (Heart Rate) 84 /min [facility] 10-13-2018 11:02-0400 Pulse Oximetry 98 % [facility] 10-13-2018 11:02-0400 Respiratory Rate 18 /min [facility] 10-13-2018 11:02-0400 Weight 115.21 kg Yasmin Brown [facility] 03-18-2018 23:39-0500 BP Diastolic 77 mm[Hg] [facility] Work Phone: 03-18-2018 23:39-0500 BP Systolic 133 mm[Hg] [facility] Work Phone: 03-18-2018 23:39-0500 Pulse (Heart Rate) 85 /min [facility] Work Phone: 03-18-2018 23:39-0500 Pulse Oximetry 97 % [facility] Work Phone: 03-18-2018 23:39-0500 Respiratory Rate 18 /min [facility] Work Phone: 03-18-2018 22:16-0500 Height 157.5 cm [facility] Work Phone: 03-18-2018 22:14-0500 Body Temperature 98.01 [degF] [facility] Work Phone: Encounters Encounter Date Encounter Type Care Provider Facility Start: 12-15-2023 End: 12-15-2023 ambulatory LIDYA FUNEZ Not Available Start: 11-27-2023 End: 11-27-2023 Office outpatient visit 10 minutes Tracy Alejandre MD Work Phone: [facility] Comment on above: Abscess of breast (P rimary Dx); Cellulitis of right breast Start: 11-27-2023 End: 11-27-[facility] Start: 11-06-2023 End: 11-06-2023 Office outpatient visit 15 minutes Tracy Alejandre MD Work Phone: [facility] Comment on above: Abscess of breast (P rimary Dx); Cellulitis of right breast Start: 11-06-2023 End: 11-06-2023 ambulatory ARIANA GARZA [facility] Start: 10-22-2023 End: 10-22-2023 Office outpatient visit 15 minutes Ariana Garza PA-C Work Phone: [facility] Plastic Surgery Comment on above: Cellulitis of right breast (Primary Dx); History of lump of right breast; Abscess of breast Start: 10-22-2023 End: 10-26-2023 ambulatory ARIANA GARZA [facility] Start: 10-17-2023 End: 10-17-2023 ambulatory ARIANAIsaias REYES [facility] Start: 10-17-2023 End: 10-21-2023 ambulatory ARIANAIsaias REYES [facility] Start: 10-16-2023 End: 10-16-2023 Office outpatient visit 15 minutes Nicole Dean PA-C Work Phone: [facility] Plastic Surgery Comment on above: Cellulitis of right breast (Primary Dx); Mastitis Start: 10-16-2023 End: 10-16-2023 ambulatory NICOLE DEAN [facility] Start: 09-30-2023 End: 09-30-2023 Office outpatient new 30 minutes Tracy Alejandre MD Work Phone: [facility] Plastic Surgery Comment on above: Mastitis (Primary Dx ) Start: 09-30-2023 End: 09-30-2023 ambulatory TRACY ALEJANDRE II [facility] Start: 08-19-2023 End: 08-19-2023 Office outpatient visit 25 minutes Ariana Garza PA-C Work Phone: [facility] Primary Care Physicians Comment on above: Current moderate epi sode of major depressive disorder without prior episode (HCC) (Primary Dx); Prediabetes; Mastitis Start: 08-19-2023 End: 08-19-2023 ambulatory ARIANA GARZA [facility] Start: 07-03-2023 Coordination of care plan Cheri Hammond RN Patient Navigator Start: 07-03-2023 Documentation procedure Shari Tay CMA [facility] Physician [facility] General Surgery Comment on above: Results Start: 07-01-2023 Coordination of care plan Harper Gates RN Patient Navigator Start: 07-01-2023 End: 07-02-[address] [facility] Start: 06-18-2023 End: 06-18-2023 Orders Only Ashley Mcdaniel MD Work Phone: [facility] Physician [facility] General Surgery Start: 05-14-2023 End: 05-14-2023 Transcribe Orders Ashley Mcdaniel MD Work Phone: [facility] Genetic Counseling Comment on above: Family history of br east cancer (Primary Dx) Nipple discharge (Pr imary Dx); Family history of breast cancer in first degree relative Start: 05-14-2023 End: 05-14-2023 Office outpatient new 20 minutes Ashley Mcdaniel MD Work Phone: [facility] Physician [facility] General Surgery Comment on above: Galactorrhea Start: 04-25-2023 End: 04-25-2023 ambulatory ARIANA GARZA [facility] Start: 04-11-2023 End: 04-11-2023 ambulatory [facility] Start: 04-01-2023 End: 04-01-2023 Office outpatient visit 15 minutes Ariana Garza PA-C Work Phone: [facility] Primary Care Physicians Comment on above: Discharge from right nipple (Primary Dx) Start: 04-01-2023 End: 04-05-2023 ambulatory [facility] Start: 01-23-2023 End: 01-23-2023 Office outpatient visit 25 minutes Ariana Garza PA-C Work Phone: [facility] Primary Care Physicians Comment on above: Current moderate epi sode of major depressive disorder without prior episode (HCC) (Primary Dx); Prediabetes; Multiple joint complaints Start: 01-23-2023 End: 01-23-2023 ambulatory ARIANA GARZA [facility] Start: 09-04-2022 End: 09-04-2022 Office outpatient visit 15 minutes Ariana Garza PA-C Work Phone: [facility] Primary Care Physicians Comment on above: Prediabetes (Primary Dx); Current moderate episode of major depressive disorder without prior episode (HCC) Start: 05-28-2022 End: 05-28-2022 Office outpatient visit 15 minutes Ariana Garza PA-C Work Phone: [facility] Primary Care Physicians Comment on above: Current moderate epi sode of major depressive disorder without prior episode (HCC) (Primary Dx); Overactive bladder Start: 03-05-2022 End: 03-05-2022 Office outpatient visit 15 minutes Ariana Garza PA-C Work Phone: [facility] Primary Care Physicians Comment on above: Current moderate epi sode of major depressive disorder without prior episode (HCC) (Primary Dx); Needs flu shot Start: 02-05-2022 End: 02-05-2022 Office outpatient visit 15 minutes Ariana Garza PA-C Work Phone: [facility] Primary Care Physicians Comment on above: Current moderate epi sode of major depressive disorder without prior episode (HCC) (Primary Dx) Start: 10-02-2021 Documentation procedure Shari Tay [facility] Gen Surg Start: 10-01-2021 Coordination of care plan Elisha ross RN Patient Navigator Start: 10-01-2021 End: 10-01-2021 Office outpatient new 20 minutes Ashley Mcdaniel MD Work Phone: [facility] Gen Surg Comment on above: Abnormal mammogram o f right breast (Primary Dx) Start: 09-21-2021 Coordination of care plan Elisha ross RN Patient Navigator Comment on above: Mass of right breast , unspecified quadrant (Primary Dx) Start: 09-10-2021 End: 09-10-2021 Office outpatient new 30 minutes Priya Zamorayon HOTEL CUSTODIAN Work Phone: [facility] Obstetrics and Gynecology Comment on above: Suppurative hidraden itis (Primary Dx); Family history of breast cancer; Encounter for screening for malignant neoplasm of breast, unspecified screening modality Start: 04-29-2021 Orders Only Harper Cunningham rs HOTEL CUSTODIAN Work Phone: [facility] [employer] Comment on above: Encntr for obs for s retirement expsr to oth biolg agents ruled out (Primary Dx) Start: 12-09-2020 End: 12-09-2020 Emergency department patient visit [facility] Start: 08-04-2020 End: 08-04-2020 Patient encounter procedure MAIKEL LEAL [facility] Amb[facility] Start: 08-04-2020 End: 08-04-2020 Initial preventive medicine new pt age 18-39yrs Maikel Leal Work Phone: [facility] Primary Care Physicians Comment on above: [facility] tiarra (Primary Dx) Start: 01-05-2020 End: 01-05-2020 ambulatory PHYSICIAN [facility] Start: 12-14-2019 End: 12-14-2019 Office outpatient visit 15 minutes Lana Lombardi Work Phone: [facility] Medicine Comment on above: Essential hypertensi on (Primary Dx); Post-traumatic stress Start: 12-07-2019 End: 12-07-2019 Office outpatient visit 15 minutes Lana Lombardi Work Phone: [facility] Medicine Comment on above: Chronic right-sided low back pain with bilateral sciatica (Primary Dx); Menorrhagia with regular cycle Start: 12-05-2019 End: 12-06-2019 Emergency department patient visit Surekha Quintanilla Work Phone: [employer] Start: 06-25-2019 End: 06-25-2019 Subsequent hospital visit by physician Lana Lombardi Work Phone: [phone] Comment on above: Arrived Start: 06-25-2019 End: 06-25-2019 Office outpatient visit 15 minutes Lana Lombardi Work Phone: [facility] Comment on above: Essential hypertensi on (Primary Dx); Long Q-T syndrome; Tobacco use Start: 06-10-2019 End: 06-10-2019 Office outpatient visit 15 minutes Lana Lombardi Work Phone: [facility] Comment on above: Post-traumatic stres s (Primary Dx) Start: 03-17-2019 End: 03-17-2019 Office outpatient visit 15 minutes Lana Lombardi Work Phone: [facility] Comment on above: Post-traumatic stres s (Primary Dx) Start: 02-01-2019 End: 02-01-2019 Telephone encounter Mady Hunter [facility] Comment on above: Other Start: 01-25-2019 End: 01-25-2019 Office outpatient visit 15 minutes Lana Lombardi Work Phone: [facility] Comment on above: Post-traumatic stres s (Primary Dx) Start: 01-21-2019 End: 01-21-2019 Telephone encounter Love Nelson [facility] Comment on above: Results Start: 01-19-2019 End: 01-19-2019 Letter encounter Lana Lombardi Work Phone: [facility] Start: 11-24-2018 End: 11-24-2018 Initial preventive medicine new pt age 18-39yrs Lana Lombardi Work Phone: [facility] Comment on above: Encounter for well w hortensia exam without gynecological exam (Primary Dx); Elevated TSH; BMI 45.0-49.9, adult Start: 10-13-2018 End: 10-17-2018 Patient encounter procedure YASMIN BROWN [facility] Start: 10-13-2018 End: 10-13-2018 Office outpatient new 20 minutes Yasmin Brown Work Phone: [facility] [place] Comment on above: Foot pain, right (Pr imary Dx); Elevated blood pressure reading; Tobacco use Start: 03-18-2018 End: 03-18-2018 Emergency department patient visit Tejinder Case Work Phone: [facility] Emergency Medicine Procedures Date Procedure Procedure Detail Performing Clinician Start: 08-04-2020 Adult depression scr eening assessment Raleighsandee Tommy Start: 05-08-2020 Microscopic observat ion [Identifier] in Cervix by Cyto stain Maikel Leal Start: 12-05-2019 CT of thoracic spine Il lianna Quintanilla Work Phone: Start: 12-05-2019 CT of lumbar spine Ilen christopher Quintanilla Work Phone: Start: 06-25-2019 Standard ECG Lana Fa janeth Work Phone: Start: 10-13-2018 X-ray of right foot Pat basil Brown Work Phone: Plan of Treatment Date Care Activity Detail Author Start: 03-05-2028 Pneumococcal Vaccine : Ped or At-Risk (1 - PCV) Pneumococcal Vaccine: Ped or At-Risk (1 - PCV) [facility] Comment on above: Postponed from 06/01 (Not Indicated) Start: 12-28-2023 Influenza vaccination [facility] Start: 12-18-2023 End: 12-18-2023 Patient encounter procedure 12/18/2023 8:40 AM EDT Office Visit [facility] Primary [facility] Physicians [address] [place] [address] [phone] Ariana Garza PA-C [address] [place] [phone] [facility] Primary [facility] Physicians Start: 11-27-2023 End: 11-27-2023 Patient encounter procedure 11/27/2023 11:00 AM EDT Office Visit [facility] Plastic Surgery [address] [place] [address] [phone] Tracy Alejandre II, MD [facility] [place] [address] [facility] Plastic Surgery Start: 11-23-2023 Depression Remission Assessment (PHQ9) Depression Remission Assessment (PHQ9) [facility] Start: 11-13-2023 End: 11-13-2023 Patient encounter procedure 11/13/2023 2:15 PM EDT Office Visit [facility] Plastic Surgery [address] [place] [address] Tracy Alejandre II, MD [address] [place] [address] [facility] Plastic Surgery Start: 11-06-2023 End: 11-06-2023 Patient encounter procedure 11/06/2023 9:30 AM EDT Office Visit [facility] Plastic Surgery [address] [place] [phone] Tracy Alejandre II, MD [address] [place] [address] [facility] Plastic Surgery Start: 10-17-2023 End: 10-17-2023 Patient encounter procedure 10/17/2023 12:45 PM EDT Appointment [facility] Ultrasound [address] [place] [phone] [facility] Ultrasound Start: 08-05-2023 End: 08-05-2023 Patient encounter procedure 08/05/2023 11:00 AM EDT Office Visit [facility] Primary Care Physicians [address] [place] [phone] Ariana Garza PA-C [address] [place] [address] [facility] Primary Care Physicians Start: 07-07-2023 End: 07-07-2023 Patient encounter procedure 07/07/2023 8:00 AM EDT Office Visit [facility] General Surgery [address] [place] [address] Ashley Mcdaniel III, MD [address] [place] [address] [facility] Physician Group General Surgery Start: 07-01-2023 End: 07-01-2023 Patient encounter procedure [facility] Start: 05-08-2023 Screening for malign ant neoplasm of cervix [facility] Start: 04-25-2023 End: 04-25-2023 Patient encounter procedure 04/25/2023 11:00 AM EST Office Visit [facility] Primary Care Physicians [address] [place] [address] Ariana Garza PA-C [address] [place] [address] [facility] Primary [facility] Physicians Start: 04-11-2023 End: 04-11-2023 Patient encounter procedure [facility] Services Mammography Start: 01-08-2023 End: 01-08-2023 Patient encounter procedure 01/08/2023 10:40 AM EDT Office Visit [facility] Primary [facility] Physicians [address] [place] [address] Ariana Garza PA-C [address] [place] [address] [facility] Primary [facility] Physicians Start: 12-27-2022 COVID-19 Vaccine ( season) COVID-19 Vaccine ( season) [facility] Start: 12-27-2022 COVID-19 Vaccine ( season) COVID-19 Vaccine ( season) [facility] Start: 12-27-2022 Influenza vaccination Sequenti al Influenza Vaccine (#1) [facility] Start: 12-06-2022 Depression Remission Assessment (PHQ9) Depression Remission Assessment (PHQ9) [facility] Start: 08-20-2022 End: 08-20-2022 Patient encounter procedure 08/20/2022 Office Visit Primary Care Ariana Garza PA-C [address] [facility] [place] [address] [facility] Primary [facility] Physicians Start: 05-28-2022 End: 05-28-2022 Patient encounter procedure 05/28/2022 Office Visit Primary Care Ariana Garza PA-C [address] [facility] [place] [address] [facility] Physicians Start: 03-05-2022 End: 03-05-2022 Patient encounter procedure 03/05/2022 Office Visit Primary Care Ariana Garza PA-C [address] [place] [address] [facility] Primary [facility] Physicians Start: 12-27-2021 Influenza vaccination Sequenti al Influenza Vaccine (#1) [facility] Start: 10-01-2021 End: 10-01-2021 Patient encounter procedure 10/01/2021 Appointment Radiology Ashley Mcdaniel III, MD [address] [place] [address] [facility] Services Mammography Start: 10-01-2021 End: 10-01-2021 Patient encounter procedure [facility] Gen [facility] Start: 09-11-2021 End: 09-11-2021 Patient encounter procedure 09/11/2021 Appointment Radiology Priya Jorge, HOTEL CUSTODIAN [address] [facility] [place] [address] [facility] Services Mammography Start: 09-11-2021 COVID-19 Vaccine (3 - Booster for Moderna series) COVID-19 Vaccine (3 - Booster for Moderna series) [facility] Start: 08-04-2021 Adolescent depressio n screening assessment Depression Screening (PHQ9) [facility] Start: 08-04-2021 Depression screening using PHQ-9 (Patient Health Questionnaire 9) score Depression Screening (PHQ-2/9) [facility] Start: 08-04-2021 History and physical examination, annual for health maintenance Wellness Visit [facility] Start: 06-08-2021 COVID-19 Vaccine (3 - Booster for Moderna series) COVID-19 Vaccine (3 - Booster for Moderna series) [facility] Start: 06-08-2021 COVID-19 Vaccine (3 - Moderna series) COVID-19 Vaccine (3 - Moderna series) [facility] Start: 04-30-2021 End: 04-30-2021 Patient encounter procedure 04/30/2021 Office Visit Lab Harper Gabriel, HOTEL CUSTODIAN [address] [place] [address] [facility] Start: 12-27-2020 Influenza vaccination Sequenti al Influenza Vaccine (#1) [facility] Start: 03-15-2020 End: 03-15-2020 Office Visit 03/15/2020 Office Visit Family Medicine Lana Lombardi APRN-HOTEL CUSTODIAN [address] [place] [address] [facility] Start: 12-28-2019 Influenza vaccination INFLUENZA VACC INE (#1) [facility] Start: 12-28-2019 Influenza vaccinatio n given Sequential Influenza Vaccine (#1) [facility] Start: 12-14-2019 End: 12-14-2019 Office Visit 12/14/2019 Office Visit Family Medicine Lana Lombardi APRN-HOTEL CUSTODIAN [address] [place] [address] [facility] Start: 07-12-2019 End: 07-12-2019 Office Visit 07/12/2019 Office Visit Family Medicine Lana Lombardi APRN-HOTEL CUSTODIAN [address] [place] [address] [facility] Medicine Start: 06-25-2019 End: 06-25-2020 Standard ECG ECG ECG Routine Essential hypertension Expected: 06/25/2019, Expires: 06/25/2020 [facility] Comment on above: Expected: 06/25/2019 , Expires: 06/25/2020 Start: 03-08-2019 End: 03-08-2019 Office Visit 03/08/2019 Office Visit Family Medicine Lana Lombardi APRN-HOTEL CUSTODIAN [address] [place] [address] [facility] Start: 01-25-2019 End: 01-25-2019 Office Visit 01/25/2019 Office Visit Family Medicine Lana Lombardi, SIDE PULLER-HOTEL CUSTODIAN [address] [place] [address] [facility] Family Medicine Start: 12-27-2018 Influenza vaccination INFLUENZA VACC INE (#1) [facility] Start: 12-27-2018 Influenza vaccinatio n given SEQUENTIAL INFLUENZA VACCINE (Season Ended) [facility] Start: 11-24-2018 End: 11-25-2019 CBC, EDIF, PLATELET CBC, EDIF, PLATELET Lab Routine Encounter for well woman exam without gynecological exam Expected: 11/24/2018, Expires: 11/25/2019 [facility] Comment on above: Expected: 11/24/2018 , Expires: 11/25/2019 Start: 11-24-2018 End: 11-25-2019 Comprehensive metabolic 2000 panel COMPREHENSIVE METABOLIC PANEL Lab Routine Encounter for well woman exam without gynecological exam Expected: 11/24/2018, Expires: 11/25/2019 [facility] Comment on above: Expected: 11/24/2018 , Expires: 11/25/2019 Start: 11-24-2018 End: 11-25-2019 LIPID PANEL W CALCULATED LDL LIPID PANEL W CALCULATED LDL Lab Routine Encounter for well woman exam without gynecological exam Expected: 11/24/2018, Expires: 11/25/2019 [facility] Comment on above: Expected: 11/24/2018 , Expires: 11/25/2019 Start: 11-24-2018 End: 11-25-2019 TSH W/FT4 REFLEX TSH W/FT4 REFLEX Lab Routine Encounter for well woman exam without gynecological exam Elevated TSH Expected: 11/24/2018, [facility]pires[facility] on above: Expected: 11/24/2018 , Expires: 11/25/2019 Start: 12-27-2017 Influenza vaccination INFLUENZA VACC INE (#1) [facility] Work Phone: Start: 2016 Screening for malign ant neoplasm of cervix HPV/Cotest [facility] Start: 2007 Screening for malign ant neoplasm of cervix [facility] Work Phone: Start: 2005 Third diphtheria, te tanus and acellular pertussis (DTaP) vaccination TDAP (ADULT) [facility] Work Phone: Start: 2004 Hepatitis C antibody , confirmatory test Hepatitis C Screening [facility] Start: 2004 Hepatitis C screening Hepatitis C Sc reening [facility] Start: 2004 Tetanus vaccination TETANUS [facility] Work Phone: Start: 2002 COVID-19 Vaccine (1) COVID-19 Vaccin e (1) [facility] Start: 2001 HIV screening HIV Screening [facility] Start: 1999 HIV screening HIV SCREENING DISCUSSION [facility] Work Phone: Start: 1992 Pneumococcal Vaccine : Ped or At-Risk (1 - PCV) Pneumococcal Vaccine: Ped or At-Risk (1 - PCV) [facility] Start: 1992 Pneumococcal Vaccine : Ped or At-Risk (1 of 2 - PPSV23) Pneumococcal Vaccine: Ped or At-Risk (1 of 2 - PPSV23) [facility] Start: 1991 COVID-19 Vaccine (1) COVID-19 Vaccin e (1) [facility] Start: 1989 History and physical examination, annual for health maintenance Wellness Visit [facility] Start: 1986 Screening for malign ant neoplasm of cervix PAP SMEAR [facility] Start: 1986 Tetanus vaccination [facility] End: 09-05-2023 Complete blood count with white cell differential, manual CBC and Differential Lab Routine Prediabetes 1 Occurrences starting 09/04/2022 until 09/05/2023 [facility] Comment on above: 1 Occurrences starti ng 09/04/2022 until 09/05/2023 End: 08-19-2024 Complete blood count with white cell differential, manual CBC and Differential Lab Routine Prediabetes 1 Occurrences starting 08/19/2023 until 08/19/2024 [facility] Comment on above: 1 Occurrences starti ng 08/19/2023 until 08/19/2024 End: 09-05-2023 Comprehensive metabolic 2000 panel - Serum or Plasma Comprehensive Metabolic Panel Lab Routine Prediabetes 1 Occurrences starting 09/04/2022 until 09/05/2023 [facility] Comment on above: 1 Occurrences starti ng 09/04/2022 until 09/05/2023 End: 01-24-2024 Comprehensive metabolic 2000 panel - Serum or Plasma Comprehensive Metabolic Panel Lab Routine Prediabetes 1 Occurrences starting 01/23/2023 until 01/24/2024 [facility] Comment on above: 1 Occurrences starti ng 01/23/2023 until 01/24/2024 End: 08-19-2024 Comprehensive metabolic 2000 panel - Serum or Plasma Comprehensive Metabolic Panel Lab Routine Prediabetes 1 Occurrences starting 08/19/2023 until 08/19/2024 [facility] Comment on above: 1 Occurrences starti ng 08/19/2023 until 08/19/2024 End: 09-05-2023 Hemoglobin A1c/Hemoglobin.total in Blood Hemoglobin A1c Lab Routine Prediabetes 1 Occurrences starting 09/04/2022 until 09/05/2023 [facility] Work Phone: Comment on above: 1 Occurrences starti ng 09/04/2022 until 09/05/2023 End: 01-24-2024 Hemoglobin A1c/Hemoglobin.total in Blood Hemoglobin A1c Lab Routine Prediabetes 1 Occurrences starting 01/23/2023 until 01/24/2024 [facility] Work Phone: Comment on above: 1 Occurrences starti ng 01/23/2023 until 01/24/2024 End: 08-19-2024 Hemoglobin A1c/Hemoglobin.total in Blood Hemoglobin A1c Lab Routine Prediabetes 1 Occurrences starting 08/19/2023 until 08/19/2024 [facility] Work Phone: Comment on above: 1 Occurrences starti ng 08/19/2023 until 08/19/2024 INR Coag RelTime (Bld) XR Foot R ight 3+ Views (Standard) Imaging STAT Foot pain, right 10/13/2018 11:25 AM EDT [facility] End: 09-05-2023 Lipid 1996 panel - Serum or Plasma Lipid Panel Lab Routine Prediabetes 1 Occurrences starting 09/04/2022 until 09/05/2023 [facility] Comment on above: 1 Occurrences starti ng 09/04/2022 until 09/05/2023 End: 08-19-2024 Lipid 1996 panel - Serum or Plasma Lipid Panel Lab Routine Prediabetes 1 Occurrences starting 08/19/2023 until 08/19/2024 [facility] Comment on above: 1 Occurrences starti ng 08/19/2023 until 08/19/2024 End: 06-02-2024 MG Breast - bilateral Diagnostic Mammography Diagnostic Emile Bilateral Imaging Routine Discharge from right nipple 1 Occurrences starting 04/01/2023 until 06/02/2024 [facility] Comment on above: 1 Occurrences starti ng 04/01/2023 until 06/02/2024 End: 11-10-2022 MG Breast - bilateral Screening Mammography Screening Emile Bilateral Imaging Routine Encounter for screening for malignant neoplasm of breast, unspecified screening modality 1 Occurrences starting 09/10/2021 until 11/10/2022 [facility] Work Phone: Comment on above: 1 Occurrences starti ng 09/10/2021 until 11/10/2022 End: 05-14-2024 MR Breast - bilateral WO and W contrast IV MR Breast Bilateral With And Without Contrast Imaging Routine Nipple discharge Family history of breast cancer in first degree relative 1 Occurrences starting 05/14/2023 until 05/14/2024 [facility] Work Phone: Comment on above: 1 Occurrences starti ng 05/14/2023 until 05/14/2024 End: 06-18-2024 MR Guidance for biopsy of Breast - right MR Breast Core Biopsy Right Imaging Routine 1 Occurrences starting 06/18/2023 until 06/18/2024 [facility] Comment on above: 1 Occurrences starti ng 06/18/2023 until 06/18/2024 End: 04-01-2024 Prolactin [Mass/volume] in Serum or Plasma Prolactin Lab Routine Discharge from right nipple 1 Occurrences starting 04/01/2023 until 04/01/2024 [facility] Comment on above: 1 Occurrences starti ng 04/01/2023 until 04/01/2024 Prolactin [Mass/volu me] in Serum or Plasma Prolactin Lab Routine Discharge from right nipple 04/01/2023 10:25 AM EST [facility] End: 04-29-2022 SARS-CoV-2 (COVID-19) RNA [Presence] in Respiratory specimen by ALFREDO with probe detection COVID-19/Influenza A,B Molecular Microbiology Routine Encntr for obs for susp expsr to oth biolg agents ruled out 1 Occurrences starting 04/29/2021 until 04/29/2022 [facility] Work Phone: Comment on above: 1 Occurrences starti ng 04/29/2021 until 04/29/2022 End: 09-05-2023 Thyrotropin [Units/volume] in Serum or Plasma TSH Lab Routine Prediabetes 1 Occurrences starting 09/04/2022 until 09/05/2023 [facility] Comment on above: 1 Occurrences starti ng 09/04/2022 until 09/05/2023 End: 09-05-2023 Thyroxine (T4) free [Mass/volume] in Serum or Plasma T4, Free Lab Routine Prediabetes 1 Occurrences starting 09/04/2022 until 09/05/2023 [facility] Comment on above: 1 Occurrences starti ng 09/04/2022 until 09/05/2023 End: 09-21-2022 Ultrasonography guided biopsy of right breast US Breast Biopsy Right Imaging Routine Mass Of Right Breast, Unspecified Quadrant 1 Occurrences starting 09/21/2021 until 09/21/2022 [facility] Work Phone: Comment on above: 1 Occurrences starti ng 09/21/2021 until 09/21/2022 End: 04-01-2024 US Breast - right US Breast Right Complete Imaging Routine Discharge from right nipple 1 Occurrences starting 04/01/2023 until 04/01/2024 [facility] Work Phone: Comment on above: 1 Occurrences starti ng 04/01/2023 until 04/01/2024 End: 06-18-2024 US Breast - right US Breast Right Complete Imaging Routine 1 Occurrences starting 06/18/2023 until 06/18/2024 [facility] Work Phone: Comment on above: 1 Occurrences starti ng 06/18/2023 until 06/18/2024 End: 09-29-2024 US Breast - right US Breast Right Complete Imaging Routine Mastitis 1 Occurrences starting 09/30/2023 until 09/29/2024 [facility] Work Phone: Comment on above: 1 Occurrences starti ng 09/30/2023 until 09/29/2024 End: 06-18-2024 US Guidance for biopsy of Breast - right US Breast Biopsy Right Imaging Routine 1 Occurrences starting 06/18/2023 until 06/18/2024 [facility] Comment on above: 1 Occurrences starti ng 06/18/2023 until 06/18/2024 Immunizations Immunization Date Immunization Notes Care Provider Kameron clemons 03-05-2022 Seasonal, quadrivale nt, recombinant, injectable influenza vaccine, preservative free Ariana Garza PA-C Work Phone: [facility] 03-05-2022 flu vac qv 2021,18yr up,rcm-PF (FLUBLOK QUAD) syringe Ariana Garza PA-C Work Phone: [facility] 03-05-2022 influenza virus vaccine, unspecified formulation Ariana Garza PA-C Work Phone: [facility] 03-17-2019 influenza virus vaccine, unspecified formulation [facility] Payers Date Payer Category Payer Unknown [id number] 2020 Unknown [facility] [employer] PLAN [employer] [employer] PLAN - PREFERRED [id number] 2020-Present [id number] 2020 Unknown [id number] 2020 Unknown [id number]. [id number] 2018 Private Health Insurance xxx [id number] 2018 Private Health Insurance [id number] 1986 Unknown [id number] 2.16.840.1.872116.3.579. 2.903 1986 Unknown [id number] 2.16.840.1.534516.3.579. 2.903 1986 Unknown [id number] 2.16.840.1.123947.3.579. 2.903 1986 Unknown [id number] 2.16.840.1.908224.3.579. 2.3 1986 Unknown [id number] 2.16.840.1.225734.3.579. 2. 1986 Unknown [id number] 2.16.840.1.145008.3.579. 2. 1986 Unknown [id number] 2.16.840.1.847802.3.579. 2 1986 Unknown [id number] 2.16.840.1.328161.3.579. 2 1986 Unknown [id number] 2.16.840.1.344771.3.579. 2 1986 Unknown [id number] 2.16.840.1.482352.3.579. 2 1986 Unknown [id number] 2.16.840.1.809871.3.579. 2 1986 Unknown [id number] 2.16.840.1.640358.3.579. 2 1986 Unknown [id number] 2.16.840.1.151409.3.579. 2 1986 Unknown [id number] 2.16.840.1.395110.3.579. 2 1986 Unknown [id number] 2.16.840.1.118100.3.579. 2 1986 Unknown [id number] 2.16.840.1.528308.3.579. 2 1986 Unknown [id number] 2.16.840.1.250203.3.579. 2 1986 Unknown [id number] 2.16.840.1.867732.3.579. 2 1986 Unknown [id number] 2.16.840.1.431098.3.579. 2.903 1986 Unknown [id number] 2.16.840.1.775321.3.579. 2.903 1986 Unknown [id number] 2.16.840.1.647208.3.579. 2.903 1986 Unknown [id number] 2.16.840.1.771708.3.579. 2.903 1986 Unknown [id number] 2.16.840.1.926132.3.579. 2.903 1986 Unknown [id number] 2.16.840.1.740403.3.579. 2.1259 Social History Date Type Detail Facility Start: 03-18-2018 End: 10-01-2021 Tobacco smoking status NHIS Current every day smoker [facility] Work Phone: Start: 03-18-2018 End: 04-01-2023 Cigarettes smoked current (pack per day) - Reported [facility] Start: 1985 Sex Assigned At Not on file [facility] Work Phone: History of tobacco use Cigarette Smoker [facility] Start: 10-13-2018 End: 02-05-2022 History SDOH Alcohol Frequency 1 [facility] Start: 01-31-2019 End: 04-01-2023 Alcohol intake No [facility] Start: 03-17-2019 End: 06-10-2019 Alcohol intake Current non-drinker of alcohol (finding) [facility] Start: 06-25-2019 End: 12-14-2019 Tobacco use and exposure Never used [facility] Start: 08-31-2021 End: 09-04-2022 Exposure to SARS-CoV-2 (event) Not sure [facility] Start: 12-14-2019 Tobacco Comment 10-15 cigarettes a day. [facility] Start: 08-04-2020 End: 09-10-2022 Tobacco use and exposure Former user [facility] End: 03-12-2020 History of tobacco use User of smokeless tobacco [facility] Start: 08-04-2020 End: 10-01-2021 Alcohol intake Lifetime non-drinker (finding) [facility] Start: 08-04-2020 End: 02-05-2022 History SDOH Social Connections Phone 5 [facility] Start: 08-04-2020 History SDOH Social Connections Get Together 4 [facility] Start: 08-04-2020 End: 02-05-2022 History SDOH Social Connections Membership 2 [facility] Start: 08-04-2020 History SDOH Social Connections Living 3 [facility] Start: 08-04-2020 History SDOH Physical Activity DPW 0 [facility] Start: 09-10-2021 End: 09-10-2022 Tobacco smoking status NHIS Ex-smoker [facility] Start: 02-23-2022 End: 11-27-2023 Alcohol intake Ex-drinker (finding) [facility] Start: 02-05-2022 Alcohol Comment rare [facility] Within the last year , have you been afraid of your partner or ex-partner? No [facility] Are you now , , , , never or living with a partner? [facility] How often to you hav e a drink containing alcohol? Never [facility] Average Number of Drinks Not on file [facility] Do you feel stress - tense, restless, nervous, or anxious, or unable to sleep at night because your mind is troubled all the time - these days [OSQ] Not at all [facility] (I/We) worried wheth er (my/our) food would run out before (I/we) got money to buy more. Never true [facility] Start: 05-08-2020 Gender identity Identifies as female gender (finding) [facility] Start: 05-08-2020 Sexual orientation Heterosexual (finding) [facility] History of tobacco use Current smoker [facility] How hard is it for y ou to pay for the very basics like food, housing, medical care, and heating Not very hard [facility] Clinical Notes 04-29-2021 to 11-27-2023 Tracy Alejandre II, MD - 11/27/2023 10:56 AM Tracy Hernandez II, MD - 11/06/2023 10:59 AM Tracy Hernandez II, MD - 10/22/2023 1:35 PM Nicole Gutierrez PA-C - 10/16/2023 2:25 PM EDT Note Date & Type Note Facility 11-27-2023 Note Lele Leon present s for a persistent cyst in the right breast, treated with antibiotics. Since her last visit 3 weeks ago, the cyst has continued to decrease, from the size of a daily to a pea and is not tender. She completed antibiotic a week ago Plan - doing much better. [employer] machine long goods helper is still a consideration. Follow up as needed. AUTHENTICATED BY TRACY ALEJANDRE II, ON 11/27/2023 12:56:45 [facility] 11-27-2023 History of Presen t illness Narrative Lele Leon presents for a persistent cyst in the right breast, treated with antibiotics. Since her last visit 3 weeks ago, the cyst has continued to decrease, from the size of a daily to a pea and is not tender. She completed antibiotic a week ago Plan - doing much better. [employer] long goods helper is still a consideration. Follow up as needed. documented in this encounter [facility] 11-06-2023 Note Lele Leon present s for a persistent cyst in the right breast, treated with antibiotics. Since her last visit 2 weeks ago and taking clindamycin, the cyst has continued to decrease, from the size of a plum to a daily, and is also less tender. Plan is to taper clindamycin for 2 more weeks and recheck in 3 weeks. [employer] long goods helper is still a consideration. AUTHENTICATED BY TRACY ALEJANDRE II, ON 11/06/2023 12:39:37 [facility] 11-06-2023 History of Presen t illness Narrative Lele Leon presents for a persistent cyst in the right breast, treated with antibiotics. Since her last visit 2 weeks ago and taking clindamycin, the cyst has continued to decrease, from the size of a plum to a daily, and is also less tender. Plan is to taper clindamycin for 2 more weeks and recheck in 3 weeks. [employer] long goods helper is still a consideration. documented in this encounter [facility] 10-22-2023 Note Lele Leon present s for a persistent cyst in the breast, treated with antibiotics. At this time continue antibiotics for an additional 2 weeks at 150 mg t.i.d. and as it has gotten under control with that treatment will see if we can get it shrunk more. I am able to feel the abscess versus cyst becoming more firm and more centralized. This may need excision long-term. It is not exactly clear at this time. Will continue antibiotics for 2 weeks, then reevaluate. AUTHENTICATED BY TRACY ALEJANDRE II, ON 10/22/2023 15:39:42 [facility] 10-22-2023 History of Presen t illness Narrative Lele Leon presents for a persistent cyst in the breast, treated with antibiotics. At this time continue antibiotics for an additional 2 weeks at 150 mg t.i.d. and as it has gotten under control with that treatment will see if we can get it shrunk more. I am able to feel the abscess versus cyst becoming more firm and more centralized. This may need excision long-term. It is not exactly clear at this time. Will continue antibiotics for 2 weeks, then reevaluate. documented in this encounter [facility] 10-16-2023 Note Lele Leon female 38 y.o. Brief Review of HPI, Focused Exam, and Assessment and Plan Lele Leon presents with a history of right breast mastitis, drainage, infection, and biopsies including biopsy of a fibroadenoma (at 6 o'clock in 2021) and biopsy of mastitis (June 2023). She last episode of nipple discharge/mastitis was improved on doxycycline 100 mg BID for a week followed by suppressive dose (50 mg BID) started by Dr. Alejandre 3 weeks ago. She has had no drainage for nearly 2 months. Over the last few days, her right breast in the 1 o'clock position has become red, warm, firm, and tender. No fever or chills. Exam shows 4 cm x 3 cm area in the 1 o'clock position outside of right breast area. Light red, warm, tender. Plan- outlined the area in marker. Will start her on clindamycin 300 mg TID for 2 days, then BID for 7 days. Has imaging of right breast scheduled tomorrow. Will check on her early next week. If no improvement, will see 10/20. To call with any changes. To take probiotic or yogurt during antibiotic use. Allergies: Bee venom protein (honey bee) and Ibuprofen Review of Systems Constitutional: Negative for chills and fever. Skin: Positive for color change (right breast). Physical Exam Data Unavailable EXAM There were no vitals filed for this visit. General: Normal Mood and affect, pleaseant demanor HEENT: Pupils Equal Round Reactive to Light; Extraocular Movements intact Chest: Normal Rise and Fall, Normal Gait and stride, with normal arm and shoulder motion. Nicole Dean PA-C AUTHENTICATED BY NICOLE DEAN, ON 10/17/2023 09:28:01 [facility] 10-16-2023 History of Presen t illness Narrative Lele Leon female 38 y.o. Brief Review of HPI, Focused Exam, and Assessment and Plan Lele Leon presents with a history of right breast mastitis, drainage, infection, and biopsies including biopsy of a fibroadenoma (at 6 o'clock in 2021) and biopsy of mastitis (June 2023). She last episode of nipple discharge/mastitis was improved on doxycycline 100 mg BID for a week followed by suppressive dose (50 mg BID) started by Dr. Alejandre 3 weeks ago. She has had no drainage for nearly 2 months. Over the last few days, her right breast in the 1 o'clock position has become red, warm, firm, and tender. No fever or chills. Exam shows 4 cm x 3 cm area in the 1 o'clock position outside of right breast area. Light red, warm, tender. Plan- outlined the area in marker. Will start her on clindamycin 300 mg TID for 2 days, then BID for 7 days. Has imaging scheduled tomorrow. Will check on her early next week. If no improvement, will see 10/20. To call with any changes. To take probiotic or yogurt during antibiotic use. Allergies: Bee venom protein (honey bee) and Ibuprofen Review of Systems Constitutional: Negative for chills and fever. Skin: Positive for color change (right breast). Physical Exam Data Unavailable EXAM There were no vitals filed for this visit. General: Normal Mood and affect, pleaseant demanor HEENT: Pupils Equal Round Reactive to Light; Extraocular Movements intact Chest: Normal Rise and Fall, Normal Gait and stride, with normal arm and shoulder motion. Nicole Dean PA-C documented in this encounter [facility] 10-16-2023 History of Presen t illness Narrative Lele Leon female 38 y.o. Brief Review of HPI, Focused Exam, and Assessment and Plan Lele Leon presents with a history of right breast mastitis, drainage, infection, and biopsies including biopsy of a fibroadenoma (at 6 o'clock in 2021) and biopsy of mastitis (June 2023). She last episode of nipple discharge/mastitis was improved on doxycycline 100 mg BID for a week followed by suppressive dose (50 mg BID) started by Dr. Alejandre 3 weeks ago. She has had no drainage for nearly 2 months. Over the last few days, her right breast in the 1 o'clock position has become red, warm, firm, and tender. No fever or chills. Exam shows 4 cm x 3 cm area in the 1 o'clock position outside of right breast area. Light red, warm, tender. Plan- outlined the area in marker. Will start her on clindamycin 300 mg TID for 2 days, then BID for 7 days. Has imaging of right breast scheduled tomorrow. Will check on her early next week. If no improvement, will see 10/20. To call with any changes. To take probiotic or yogurt during antibiotic use. Allergies: Bee venom protein (honey bee) and Ibuprofen Review of Systems Constitutional: Negative for chills and fever. Skin: Positive for color change (right breast). Physical Exam Data Unavailable EXAM There were no vitals filed for this visit. General: Normal Mood and affect, pleaseant demanor HEENT: Pupils Equal Round Reactive to Light; Extraocular Movements intact Chest: Normal Rise and Fall, Normal Gait and stride, with normal arm and shoulder motion. Nicole Dean PA-C documented in this encounter [facility] 09-30-2023 Note Lele Leon female 38 y.o. Brief Review of HPI, Focused Exam, and Assessment and Plan Lele Leon presents with a history of right breast mastitis, drainage, infection, multiple biopsies including biopsy of a fibroadenoma and biopsy of mastitis. She has been on recent doxycycline which stopped the drainage, but now she has a painful lump in the periareolar region at the 2 o'clock location approximately 1 cm in diameter. This appears to be inflamed without fernando infection. At this time I would like to put her on a suppressive antibiotic dose for 1 months' time with doxycycline 50 mg twice a day. This was prescribed today. Will set her up for an ultrasound to set up a baseline assessment of this retained cyst, which may or may not be related to clogged ducts after having the area clipped. It may eventually need complete excision. Hopefully we can avoid that with antibiotic treatment over a period of time. I discussed the risks and benefits with Lele today. She understands. We have set her up for these antibiotics and procedure today, and will have her follow up with us in 1 months' time. Allergies: Bee venom protein (honey bee) and Ibuprofen Review of Systems Constitutional: Negative for chills and fever. HENT: Negative for nosebleeds, rhinorrhea, sinus pressure and sneezing. Eyes: Negative for pain, redness and itching. Respiratory: Negative for cough, choking, shortness of breath and wheezing. Cardiovascular: Negative for chest pain and palpitations. Gastrointestinal: Negative for nausea and vomiting. Endocrine: Negative for polydipsia and polyuria. Musculoskeletal: Right breast with 2-o clock lump Neurological: Negative for dizziness, seizures, syncope, facial asymmetry and weakness. Physical Exam Data Unavailable EXAM There were no vitals filed for this visit. General: Normal Mood and affect, pleaseant demanor HEENT: Pupils Equal Round Reactive to Light; Extraocular Movements intact Chest: Normal Rise and Fall, Normal Gait and stride, with normal arm and shoulder motion. Tracy Alejandre II, MD AUTHENTICATED BY TRACY ALEJANDRE II, ON 10/01/2023 12:29:19 [facility] 08-25-2023 Note .Subjective Patient ID: Lele Leon is a 38 y.o. female. Lele is a 38-year-old female presenting today for follow-up visit for management of chronic conditions. Reports that for her chronic conditions things are going well. Her mood is doing good with the Wellbutrin. Her main concern is nipple discharge. She did have a biopsy done that confirmed mastitis. Was told to follow-up in 6 months. She is frustrated because she continues to have this issue and has had it for over a year and just continues to be told to follow-up with monitoring. She does not want to continue to have this issue. States that it has not changed in nature since I saw her last. She denies shortness of breath, chest pain, changes to vision or hearing, or headache. The following portions of the patient's history were reviewed and updated as appropriate: allergies, current medications, past family history, past medical history, past social history, past surgical history and problem list. Review of Systems Constitutional: Negative for activity change, appetite change, fatigue, fever and unexpected weight change. Eyes: Negative for photophobia and visual disturbance. Respiratory: Negative for cough, chest tightness, shortness of breath and wheezing. Cardiovascular: Negative for chest pain, palpitations and leg swelling. Gastrointestinal: Negative for abdominal pain, blood in stool, constipation, diarrhea, nausea and vomiting. Endocrine: Negative for cold intolerance and heat intolerance. Musculoskeletal: Negative for arthralgias, gait problem and myalgias. Skin: Negative for color change, rash and wound. Neurological: Negative for dizziness, weakness, light-headedness, numbness and headaches. Psychiatric/Behavioral: Negative for decreased concentration, dysphoric mood, hallucinations, self-injury, sleep disturbance and suicidal ideas. The patient is not nervous/anxious. Objective Physical Exam Vitals and nursing note reviewed. Constitutional: General: She is not in acute distress. Appearance: She is well-developed. HENT: Head: Normocephalic and atraumatic. Neck: Thyroid: No thyroid mass or thyromegaly. Cardiovascular: Rate and Rhythm: Normal rate and regular rhythm. Heart sounds: S1 normal and S2 normal. No murmur heard. No friction rub. No gallop. Pulmonary: Effort: Pulmonary effort is normal. No tachypnea, bradypnea, accessory muscle usage or respiratory distress. Breath sounds: Normal breath sounds. No decreased breath sounds, wheezing or rales. Musculoskeletal: Cervical back: Normal range of motion and neck supple. Lymphadenopathy: Head: Right side of head: No submental, submandibular, tonsillar, preauricular, posterior auricular or occipital adenopathy. Left side of head: No submental, submandibular, tonsillar, preauricular, posterior auricular or occipital adenopathy. Cervical: No cervical adenopathy. Upper Body: Right upper body: No supraclavicular adenopathy. Left upper body: No supraclavicular adenopathy. Skin: General: Skin is warm and dry. Findings: No rash. Neurological: Mental Status: She is alert and oriented to person, place, and time. Psychiatric: Attention and Perception: Attention and perception normal. She is attentive. She does not perceive auditory or visual hallucinations. Mood and Affect: Mood and affect normal. Mood is not anxious or depressed. Affect is not labile, blunt, angry or inappropriate. Speech: Speech normal. She is communicative. Speech is not rapid and pressured, delayed, slurred or tangential. Behavior: Behavior normal. Behavior is not agitated, slowed, aggressive, withdrawn, hyperactive or combative. Behavior is cooperative. Thought Content: Thought content normal. Thought content is not paranoid or delusional. Thought content does not include homicidal or suicidal ideation. Thought content does not include homicidal or suicidal plan. Judgment: Judgment normal. Judgment is not impulsive or inappropriate. Assessment/Plan: 1. Major depressive disorder-we will continue the Wellbutrin 3 mg daily 2. Prediabetes-will continue metformin 500 mg daily with breakfast. We will do A1c, CBC, CMP and lipid panel before next visit. We will attempt to get her CGM for feedback on how diet affects her blood sugars. 3. Mastitis-spent some time discussing her mastitis. For me, mastitis has typically been associated with infection and breast-feeding mothers. However since she has not been nor breast-fed and we already did labs to confirm no metabolic cause, I am not really sure where to go from this. She continues to have and was told that they will just follow-up in 6 months. However she is very frustrated and wants to know what I think and I think at this point in time it is fair if we were to try treating like infection. Patient would like to do this. Will give doxycycline 100 mg twice daily for 7 days. If this im (more content not included)... [facility] 08-25-2023 History of Presen t illness Narrative .Subjective Patient ID: Lele Leon is a 38 y.o. female. Lele is a 38-year-old female presenting today for follow-up visit for management of chronic conditions. Reports that for her chronic conditions things are going well. Her mood is doing good with the Wellbutrin. Her main concern is nipple discharge. She did have a biopsy done that confirmed mastitis. Was told to follow-up in 6 months. She is frustrated because she continues to have this issue and has had it for over a year and just continues to be told to follow-up with monitoring. She does not want to continue to have this issue. States that it has not changed in nature since I saw her last. She denies shortness of breath, chest pain, changes to vision or hearing, or headache. The following portions of the patient's history were reviewed and updated as appropriate: allergies, current medications, past family history, past medical history, past social history, past surgical history and problem list. Review of Systems Constitutional: Negative for activity change, appetite change, fatigue, fever and unexpected weight change. Eyes: Negative for photophobia and visual disturbance. Respiratory: Negative for cough, chest tightness, shortness of breath and wheezing. Cardiovascular: Negative for chest pain, palpitations and leg swelling. Gastrointestinal: Negative for abdominal pain, blood in stool, constipation, diarrhea, nausea and vomiting. Endocrine: Negative for cold intolerance and heat intolerance. Musculoskeletal: Negative for arthralgias, gait problem and myalgias. Skin: Negative for color change, rash and wound. Neurological: Negative for dizziness, weakness, light-headedness, numbness and headaches. Psychiatric/Behavioral: Negative for decreased concentration, dysphoric mood, hallucinations, self-injury, sleep disturbance and suicidal ideas. The patient is not nervous/anxious. Objective Physical Exam Vitals and nursing note reviewed. Constitutional: General: She is not in acute distress. Appearance: She is well-developed. HENT: Head: Normocephalic and atraumatic. Neck: Thyroid: No thyroid mass or thyromegaly. Cardiovascular: Rate and Rhythm: Normal rate and regular rhythm. Heart sounds: S1 normal and S2 normal. No murmur heard. No friction rub. No gallop. Pulmonary: Effort: Pulmonary effort is normal. No tachypnea, bradypnea, accessory muscle usage or respiratory distress. Breath sounds: Normal breath sounds. No decreased breath sounds, wheezing or rales. Musculoskeletal: Cervical back: Normal range of motion and neck supple. Lymphadenopathy: Head: Right side of head: No submental, submandibular, tonsillar, preauricular, posterior auricular or occipital adenopathy. Left side of head: No submental, submandibular, tonsillar, preauricular, posterior auricular or occipital adenopathy. Cervical: No cervical adenopathy. Upper Body: Right upper body: No supraclavicular adenopathy. Left upper body: No supraclavicular adenopathy. Skin: General: Skin is warm and dry. Findings: No rash. Neurological: Mental Status: She is alert and oriented to person, place, and time. Psychiatric: Attention and Perception: Attention and perception normal. She is attentive. She does not perceive auditory or visual hallucinations. Mood and Affect: Mood and affect normal. Mood is not anxious or depressed. Affect is not labile, blunt, angry or inappropriate. Speech: Speech normal. She is communicative. Speech is not rapid and pressured, delayed, slurred or tangential. Behavior: Behavior normal. Behavior is not agitated, slowed, aggressive, withdrawn, hyperactive or combative. Behavior is cooperative. Thought Content: Thought content normal. Thought content is not paranoid or delusional. Thought content does not include homicidal or suicidal ideation. Thought content does not include homicidal or suicidal plan. Judgment: Judgment normal. Judgment is not impulsive or inappropriate. Assessment/Plan: 1. Major depressive disorder-we will continue the Wellbutrin 3 mg daily 2. Prediabetes-will continue metformin 500 mg daily with breakfast. We will do A1c, CBC, CMP and lipid panel before next visit. We will attempt to get her CGM for feedback on how diet affects her blood sugars. 3. Mastitis-spent some time discussing her mastitis. For me, mastitis has typically been associated with infection and breast-feeding mothers. However since she has not been nor breast-fed and we already did labs to confirm no metabolic cause, I am not really sure where to go from this. She continues to have and was told that they will just follow-up in 6 months. However she is very frustrated and wants to know what I think and I think at this point in time it is fair if we were to try treating like infection. Patient would like to do this. Will give doxycycline 100 mg twice daily for 7 days. If this improves her symptoms but it comes back, and next steps for me would be to culture the discharge. Patient agreeable to plan I will see her back in 4 months or sooner if needed Diagnoses and all orders for this visit: Current moderate episode of major depressive disorder without prior episode (HCC) - buPROPion (Wellbutrin XL) 300 MG 24 hr tablet; Take 1 (one) tablet (300 mg total) by mouth daily . Prediabetes - metFORMIN (GLUCOPHAGE-XR) 500 MG 24 hr tablet; Take 1 (one) tablet (500 mg total) by mouth daily with breakfast . - blood-glucose sensor (FreeStyle Melania 3 Sensor) Marsha; For continuous glucose monitoring. Change every 14 days . - Hemoglobin A1c; Future - CBC and Differential; Future - Comprehensive Metabolic Panel; Future - Lipid Panel; Future Mastitis - doxycycline hyclate (VIBRA-TABS) 100 MG tablet; Take 1 (one) tablet (100 mg total) by mouth 2 (two) times a day . Note: This dictation was generated using [employer] voice recognition software. Please excuse any grammatical or spelling errors that may have occurred using the system. documented in this encounter [facility] 07-03-2023 History of Presen t illness Narrative Patient informed of negative right breast biopsy results. Patient also informed of the need for a repeat 6 month right breast mammogram and US. Recall placed in computer. documented in this encounter [facility] 07-03-2023 History of Presen t illness Narrative Called patient today for post biopsy call/check in. No answer, left VM for patient to return my call with any questions/concerns. Per chart, patient has viewed results in [employer] which reveal mastitis. Ordering provider to call patient with results. Benign path entered into breast care summary. Navigation will sign off at this time. Cheri MATTHEWS, RN General Oncology Nurse Navigator Breast Health Nurse Navigator [facility] [phone] documented in this encounter [facility] 07-01-2023 History of Presen t illness Narrative LE- Met with patient prior to biopsy. Provided review of biopsy procedure and explanation of post-bx care instructions in printed and verbal forms. Pt verbalized good understanding. Medications and allergies were reviewed. Biopsy completed without complications. Bleeding stopped with manual pressure applied per tech /Nurse. Steri-Strips & ice pack applied to biopsy site. Patient discharged to home in good condition. documented in this encounter [facility] 05-14-2023 History of Presen t illness Narrative Lele is seen in the office today to discuss management of her right breast galactorrhea. She gives a very detailed history of a whitish cream-colored discharge occurring every 4 to 6 weeks in a cyclical fashion. She notes a prodrome of some itchiness to the breast and then as this progresses her nipple will invert a bit and then she will see the discharge and experience relief. She says that on occasion she can get discharged with manipulation of the nipple but for the most part follows this typical cycle. She had an initial workup done by her primary physician, which consisted of prolactin level which was normal, mammogram and ultrasound which were normal. She has a family history of breast cancer occurring in her mother. Reportedly it was an inflammatory breast cancer just before the age of [age] years old. She is not aware of any other breast or ovarian or pancreatic cancers within her family. PHYSICAL EXAMINATION General: She is a healthy, well-developed, well-nourished 37-year-old female. She is resting comfortable and cooperative. Breasts: She has moderate to large breast size with age expected ptosis. There were no visible abnormalities in either nipple. There is mild inversion of both nipples. On the examination today, we were unable to express any nipple discharge from the right breast. IMPRESSION Right breast galactorrhea. PLAN The patient will be scheduled for a bilateral breast MRI. If this result is normal, we will continue conservative approach to her management as she did not want to pursue surgery. Noted that she will also have a referral to genetic counseling. documented in this encounter [facility] 04-01-2023 Note Addended by: ARIANA GARZA on: 04/01/2023 10:45 AM Modules accepted: Orders [facility] 04-01-2023 Note Addended by: ARIANA GARZA on: 04/01/2023 10:45 AM Modules accepted: Orders [facility] 04-01-2023 Miscellaneous Notes Addended by: ARIANA GARZA on: 04/01/2023 10:45 AM Modules accepted: Orders documented in this encounter [facility] 04-01-2023 History of Presen t illness Narrative .Subjective Patient ID: Lele Leon is a 37 y.o. female. Lele is a 37-year-old female presenting today for acute visit. Reports that 3 times this year alone she has had itching on her breast around the 12 o'clock position and when she applies pressure she is able to get a milky discharge out. If she completely drained the breast the end will be bloody. Denies any pain. She has never breast-fed. She is never been herself. There is concern with mom dying from inflammatory breast cancer. She did have a biopsy at the 6 o'clock position last year. Has not followed up from this. Denies fever or rashes. Denies shortness of breath or chest pain. The following portions of the patient's history were reviewed and updated as appropriate: allergies, current medications, past family history, past medical history, past social history, past surgical history and problem list. Review of Systems Constitutional: Negative for appetite change, fatigue and unexpected weight change. Respiratory: Negative for cough, chest tightness, shortness of breath and wheezing. Cardiovascular: Negative for chest pain, palpitations and leg swelling. Skin: Negative for color change and rash. Objective Physical Exam Vitals and nursing note reviewed. Constitutional: General: She is not in acute distress. Appearance: She is well-developed. HENT: Head: Normocephalic and atraumatic. Cardiovascular: Rate and Rhythm: Normal rate and regular rhythm. Heart sounds: S1 normal and S2 normal. No murmur heard. No friction rub. No gallop. Pulmonary: Effort: Pulmonary effort is normal. No tachypnea, bradypnea, accessory muscle usage or respiratory distress. Breath sounds: Normal breath sounds. No decreased breath sounds, wheezing or rales. Chest: Breasts: Right: No swelling, bleeding, inverted nipple, mass, nipple discharge, skin change or tenderness. Skin: General: Skin is warm and dry. Findings: No rash. Neurological: Mental Status: She is alert and oriented to person, place, and time. Assessment/Plan: 1. Right nipple discharge-discussed with patient that I do want her to follow-up with diagnostic mammogram and ultrasound. I do think this needs to be repeated. Will also get a prolactin level due to the chronicity of the issue. I will follow-up with her after imaging and labs or sooner if needed Diagnoses and all orders for this visit: Discharge from right nipple - Mammography Diagnostic Right; Future - US Breast Right Complete; Future - Prolactin; Future Note: This dictation was generated using [employer] voice recognition software. Please excuse any grammatical or spelling errors that may have occurred using the system. documented in this encounter [facility] 01-28-2023 History of Presen t illness Narrative .Subjective Patient ID: Lele Leon is a 37 y.o. female. Lele is a 37-year-old female presenting today for follow-up visit for management of chronic conditions. She reports concerns of multiple joint starting to bother her. Tylenol, Flexeril and the TENS unit are not helping. States that they just ache. They are not tender to touch. She thinks it is weight related. She has been watching her blood sugars and says fasting they are in the 120s and with food goes up to the 170s. She is worried about this. Wants to know if there is nothing she can do to try to stop progression of her A1c as she has family history. Denies shortness of breath, chest pain, changes in vision or hearing, headache. Mood is doing well with the Wellbutrin. Denies thoughts of wanting to harm herself or others. The following portions of the patient's history were reviewed and updated as appropriate: allergies, current medications, past family history, past medical history, past social history, past surgical history and problem list. Review of Systems Constitutional: Negative for activity change, appetite change, fatigue, fever and unexpected weight change. Eyes: Negative for photophobia and visual disturbance. Respiratory: Negative for cough, chest tightness, shortness of breath and wheezing. Cardiovascular: Negative for chest pain, palpitations and leg swelling. Gastrointestinal: Negative for abdominal pain, blood in stool, constipation, diarrhea, nausea and vomiting. Endocrine: Negative for cold intolerance and heat intolerance. Musculoskeletal: Positive for arthralgias. Negative for gait problem and myalgias. Skin: Negative for color change, rash and wound. Neurological: Negative for dizziness, weakness, light-headedness, numbness and headaches. Psychiatric/Behavioral: Negative for decreased concentration, dysphoric mood, hallucinations, self-injury, sleep disturbance and suicidal ideas. The patient is not nervous/anxious. Objective Physical Exam Vitals and nursing note reviewed. Constitutional: General: She is not in acute distress. Appearance: She is well-developed. HENT: Head: Normocephalic and atraumatic. Neck: Thyroid: No thyroid mass or thyromegaly. Cardiovascular: Rate and Rhythm: Normal rate and regular rhythm. Heart sounds: S1 normal and S2 normal. No murmur heard. No friction rub. No gallop. Pulmonary: Effort: Pulmonary effort is normal. No tachypnea, bradypnea, accessory muscle usage or respiratory distress. Breath sounds: Normal breath sounds. No decreased breath sounds, wheezing or rales. Musculoskeletal: Cervical back: Normal range of motion and neck supple. Right ankle: No swelling, deformity or ecchymosis. No tenderness. Normal range of motion. Left ankle: No swelling, deformity or ecchymosis. No tenderness. Normal range of motion. Lymphadenopathy: Head: Right side of head: No submental, submandibular, tonsillar, preauricular, posterior auricular or occipital adenopathy. Left side of head: No submental, submandibular, tonsillar, preauricular, posterior auricular or occipital adenopathy. Cervical: No cervical adenopathy. Upper Body: Right upper body: No supraclavicular adenopathy. Left upper body: No supraclavicular adenopathy. Skin: General: Skin is warm and dry. Findings: No rash. Neurological: Mental Status: She is alert and oriented to person, place, and time. Psychiatric: Attention and Perception: Attention and perception normal. She is attentive. She does not perceive auditory or visual hallucinations. Mood and Affect: Mood and affect normal. Mood is not anxious or depressed. Affect is not labile, blunt, angry or inappropriate. Speech: Speech normal. She is communicative. Speech is not rapid and pressured, delayed, slurred or tangential. Behavior: Behavior normal. Behavior is not agitated, slowed, aggressive, withdrawn, hyperactive or combative. Behavior is cooperative. Thought Content: Thought content normal. Thought content is not paranoid or delusional. Thought content does not include homicidal or suicidal ideation. Thought content does not include homicidal or suicidal plan. Judgment: Judgment normal. Judgment is not impulsive or inappropriate. Assessment/Plan: 1. Major depressive disorder-we will continue the Wellbutrin 300 mg daily 2. Prediabetes-we will start patient on metformin 500 mg daily with breakfast. Warned of side effect of diarrhea. If this occurs she is to let me know we will do an A1c and CMP before next visit 3. Multiple joint complaints-we will continue the baclofen 5 mg 3 times daily as needed discussed that with multiple joint aches we could also be looking at autoimmune.. She will consider options for labs if things are not improving We will see her back in 4 months or sooner if needed Diagnoses and all orders for this visit: Current moderate episode of major depressive disorder without prior episode (HCC) Prediabetes - metFORMIN (GLUCOPHAGE-XR) 500 MG 24 hr tablet; Take 1 (one) tablet (500 mg total) by mouth daily with breakfast . - Hemoglobin A1c; Future - Comprehensive Metabolic Panel; Future Multiple joint complaints - baclofen 5 mg Tab; Take 1 (one) tablet (5 mg total) by mouth 3 (three) times a day as needed . Note: This dictation was generated using [employer] voice recognition software. Please excuse any grammatical or spelling errors that may have occurred using the system. documented in this encounter [facility] 09-09-2022 History of Presen t illness Narrative .Subjective Patient ID: Lele Leon is a 37 y.o. female. Lele is a 37-year-old female presenting today for follow-up visit for management chronic conditions. She reports overall things are going well. She is really enjoying her new job still and is liking the [place]. She is compliant with her medications. Denies any shortness of breath, chest pain, changes to vision or hearing, or headaches. Acknowledges that she is not made as much progress with her health as she had hoped but is aware of where she needs to go to struggles with motivation. Denies any thoughts of wanting to harm her self or others. Denies visual or audible hallucinations. The following portions of the patient's history were reviewed and updated as appropriate: allergies, current medications, past family history, past medical history, past social history, past surgical history and problem list. Review of Systems Constitutional: Negative for activity change, appetite change, fatigue, fever and unexpected weight change. Eyes: Negative for photophobia and visual disturbance. Respiratory: Negative for cough, chest tightness, shortness of breath and wheezing. Cardiovascular: Negative for chest pain, palpitations and leg swelling. Gastrointestinal: Negative for abdominal pain, blood in stool, constipation, diarrhea, nausea and vomiting. Endocrine: Negative for cold intolerance and heat intolerance. Musculoskeletal: Negative for arthralgias, gait problem and myalgias. Skin: Negative for color change, rash and wound. Neurological: Negative for dizziness, weakness, light-headedness, numbness and headaches. Psychiatric/Behavioral: Negative for decreased concentration, dysphoric mood, hallucinations, self-injury, sleep disturbance and suicidal ideas. The patient is not nervous/anxious. Objective Physical Exam Vitals and nursing note reviewed. Constitutional: General: She is not in acute distress. Appearance: She is well-developed. HENT: Head: Normocephalic and atraumatic. Neck: Thyroid: No thyroid mass or thyromegaly. Cardiovascular: Rate and Rhythm: Normal rate and regular rhythm. Heart sounds: S1 normal and S2 normal. No murmur heard. No friction rub. No gallop. Pulmonary: Effort: Pulmonary effort is normal. No tachypnea, bradypnea, accessory muscle usage or respiratory distress. Breath sounds: Normal breath sounds. No decreased breath sounds, wheezing or rales. Musculoskeletal: Cervical back: Normal range of motion and neck supple. Lymphadenopathy: Head: Right side of head: No submental, submandibular, tonsillar, preauricular, posterior auricular or occipital adenopathy. Left side of head: No submental, submandibular, tonsillar, preauricular, posterior auricular or occipital adenopathy. Cervical: No cervical adenopathy. Upper Body: Right upper body: No supraclavicular adenopathy. Left upper body: No supraclavicular adenopathy. Skin: General: Skin is warm and dry. Findings: No rash. Neurological: Mental Status: She is alert and oriented to person, place, and time. Psychiatric: Attention and Perception: Attention and perception normal. She is attentive. She does not perceive auditory or visual hallucinations. Mood and Affect: Mood and affect normal. Mood is not anxious or depressed. Affect is not labile, blunt, angry or inappropriate. Speech: Speech normal. She is communicative. Speech is not rapid and pressured, delayed, slurred or tangential. Behavior: Behavior normal. Behavior is not agitated, slowed, aggressive, withdrawn, hyperactive or combative. Behavior is cooperative. Thought Content: Thought content normal. Thought content is not paranoid or delusional. Thought content does not include homicidal or suicidal ideation. Thought content does not include homicidal or suicidal plan. Judgment: Judgment normal. Judgment is not impulsive or inappropriate. Assessment/Plan: 1. Prediabetes-we will do a CBC, CMP, lipid panel, thyroid panel, and A1c before next visit 2. Major depressive disorder-we will continue the Wellbutrin 300 mg daily I will see her back in 4 months time or sooner if needed Diagnoses and all orders for this visit: Prediabetes - Hemoglobin A1c; Future - CBC and Differential; Future - Comprehensive Metabolic Panel; Future - Lipid Panel; Future - TSH; Future - T4, Free; Future Current moderate episode of major depressive disorder without prior episode (HCC) - buPROPion (Wellbutrin XL) 300 MG 24 hr tablet; Take 1 (one) tablet (300 mg total) by mouth daily . Note: This dictation was generated using [employer] voice recognition software. Please excuse any grammatical or spelling errors that may have occurred using the system. documented in this encounter [facility] 05-28-2022 History of Presen t illness Narrative .Subjective Patient ID: Lele Leon is a 36 y.o. female. Lele is a 36-year-old female presenting today for follow-up visit for management of chronic conditions. Since I saw her last, she reports that she is doing really well. She is very happy at her new job and feeling very successful with worklife balance. She is also noticed that the Wellbutrin is helping her not want to binge eat or emotionally eat. Thus, she is lost 10 pounds. She is optimistic that this will continue to improve. She did get a gym membership but is a little afraid to go as she has been having bladder issues for a while now. She will have this need to go every 15 to 30 minutes and to be able to urinate. It is gotten worse with her trying to increase her water intake. Also does have some bladder leakage issues. Denies any dysuria. Denies hematuria. Denies shortness of breath or chest pain. The following portions of the patient's history were reviewed and updated as appropriate: allergies, current medications, past family history, past medical history, past social history, past surgical history and problem list. Review of Systems Constitutional: Negative for appetite change, chills, fatigue and fever. Respiratory: Negative for cough, chest tightness, shortness of breath and wheezing. Cardiovascular: Negative for chest pain and palpitations. Gastrointestinal: Negative for abdominal pain, diarrhea, nausea and vomiting. Genitourinary: Positive for frequency and urgency. Negative for difficulty urinating, dysuria, flank pain, hematuria, menstrual problem, vaginal bleeding, vaginal discharge and vaginal pain. Musculoskeletal: Negative for arthralgias and myalgias. Skin: Negative for color change and rash. Neurological: Negative for weakness, numbness and headaches. Psychiatric/Behavioral: Negative for decreased concentration, dysphoric mood, hallucinations, self-injury, sleep disturbance and suicidal ideas. The patient is not nervous/anxious. Objective Physical Exam Vitals and nursing note reviewed. Constitutional: General: She is not in acute distress. Appearance: She is well-developed. HENT: Head: Normocephalic and atraumatic. Neck: Thyroid: No thyroid mass or thyromegaly. Cardiovascular: Rate and Rhythm: Normal rate and regular rhythm. Heart sounds: S1 normal and S2 normal. No murmur heard. No friction rub. No gallop. Pulmonary: Effort: Pulmonary effort is normal. No tachypnea, bradypnea, accessory muscle usage or respiratory distress. Breath sounds: Normal breath sounds. No decreased breath sounds, wheezing or rales. Musculoskeletal: Cervical back: Normal range of motion and neck supple. Lymphadenopathy: Head: Right side of head: No submental, submandibular, tonsillar, preauricular, posterior auricular or occipital adenopathy. Left side of head: No submental, submandibular, tonsillar, preauricular, posterior auricular or occipital adenopathy. Cervical: No cervical adenopathy. Upper Body: Right upper body: No supraclavicular adenopathy. Left upper body: No supraclavicular adenopathy. Skin: General: Skin is warm and dry. Findings: No rash. Neurological: Mental Status: She is alert and oriented to person, place, and time. Psychiatric: Attention and Perception: Attention and perception normal. She is attentive. She does not perceive auditory or visual hallucinations. Mood and Affect: Mood and affect normal. Mood is not anxious or depressed. Affect is not labile, blunt, angry or inappropriate. Speech: Speech normal. She is communicative. Speech is not rapid and pressured, delayed, slurred or tangential. Behavior: Behavior normal. Behavior is not agitated, slowed, aggressive, withdrawn, hyperactive or combative. Behavior is cooperative. Thought Content: Thought content normal. Thought content is not paranoid or delusional. Thought content does not include homicidal or suicidal ideation. Thought content does not include homicidal or suicidal plan. Judgment: Judgment normal. Judgment is not impulsive or inappropriate. Assessment/Plan: 1. Major depressive disorder-working to leave the Wellbutrin alone at 300 mg daily for now. I am a little suspicious that some of her neck pain is related to the Wellbutrin. However, since patient is little worried about her blood pressure I want her to go ahead and take her blood pressure when she gets these headaches and neck pain. If her blood pressure is normal then it is likely the medication and we may want a trial coming down to 150 mg to see if they improve. 2. Overactive bladder-I do think her overactive bladder is potentially multifaceted and related to potential overactive bladder versus pelvic floor dysfunction versus endometrial tissue and/or uterus pushing on her bladder. We have elected to trial oxybutynin 5 mg daily and see if her symptoms improve at all. Also discussed pelvic floor rehab but are starting with medication to see how much we can improve symptoms. Did keep expectations realistic that the bladder leakage will not improve but hoping to improve the frequency in which she needs to go the bathroom. We will see her back in 3 months time or sooner if needed Diagnoses and all orders for this visit: Current moderate episode of major depressive disorder without prior episode (HCC) - buPROPion (Wellbutrin XL) 300 MG 24 hr tablet; Take 1 (one) tablet (300 mg total) by mouth daily . Overactive bladder - oxybutynin (DITROPAN-XL) 5 MG 24 hr tablet; Take 1 (one) tablet (5 mg total) by mouth daily . Note: This dictation was generated using [employer] voice recognition software. Please excuse any grammatical or spelling errors that may have occurred using the system. documented in this encounter [facility] 03-16-2022 History of Presen t illness Narrative .Subjective Patient ID: Lele Leon is a 36 y.o. female. Lele is a 36-year-old female presenting today for follow-up visit since initiating Wellbutrin. She reports that she has not seen remarkable improvements in her mood but does feel like she is overall had a few better moments than others which makes her feel like her mood is getting better. 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 Even though the shifts are 24 hours it also provides her better worklife balance because she wants to be home with her kids and she actually will have more time with them doing it this way. She has good family support which makes this move possible. She is optimistic with the work change that she will be happier as she was not happy at her current job. She denies any thoughts of wanting to harm her self or others. Denies visual or audible hallucinations. She denies shortness of breath, chest pain, changes to vision or hearing or headaches. She is not really sure if the Wellbutrin has helped her appetite much and she has not lost any weight so she is a little disappointed with this. The following portions of the patient's history were reviewed and updated as appropriate: allergies, current medications, past family history, past medical history, past social history, past surgical history and problem list. Review of Systems Constitutional: Negative for appetite change, fatigue and fever. Respiratory: Negative for cough, chest tightness, shortness of breath and wheezing. Cardiovascular: Negative for chest pain and palpitations. Skin: Negative for color change and rash. Neurological: Negative for weakness, numbness and headaches. Psychiatric/Behavioral: Positive for dysphoric mood. Negative for decreased concentration, hallucinations, self-injury, sleep disturbance and suicidal ideas. The patient is not nervous/anxious. Objective Physical Exam Vitals and nursing note reviewed. Constitutional: General: She is not in acute distress. Appearance: She is well-developed. HENT: Head: Normocephalic and atraumatic. Neck: Thyroid: No thyroid mass or thyromegaly. Cardiovascular: Rate and Rhythm: Normal rate and regular rhythm. Heart sounds: S1 normal and S2 normal. No murmur heard. No friction rub. No gallop. Pulmonary: Effort: Pulmonary effort is normal. No tachypnea, bradypnea, accessory muscle usage or respiratory distress. Breath sounds: Normal breath sounds. No decreased breath sounds, wheezing or rales. Musculoskeletal: Cervical back: Normal range of motion and neck supple. Skin: General: Skin is warm and dry. Findings: No rash. Neurological: Mental Status: She is alert and oriented to person, place, and time. Psychiatric: Attention and Perception: Attention and perception normal. She is attentive. She does not perceive auditory or visual hallucinations. Mood and Affect: Mood and affect normal. Mood is not anxious or depressed. Affect is not labile, blunt, angry or inappropriate. Speech: Speech normal. She is communicative. Speech is not rapid and pressured, delayed, slurred or tangential. Behavior: Behavior normal. Behavior is not agitated, slowed, aggressive, withdrawn, hyperactive or combative. Behavior is cooperative. Thought Content: Thought content normal. Thought content is not paranoid or delusional. Thought content does not include homicidal or suicidal ideation. Thought content does not include homicidal or suicidal plan. Judgment: Judgment normal. Judgment is not impulsive or inappropriate. Assessment/Plan: 1. Major depressive disorder-discussed with the patient that I think the fact that she is noticing some good moments means that the medication is working. I do think counseling will still be of benefit to her. We have decided to go up on the dose to 300 mg daily. If she develops any thoughts of wanting to harm her self or others she is to go to the emergency room. I think her switching back to a job that she really loves and gives her an opportunity for worklife balance I think will overall also contribute to a positive mental health outcome. Continue to talk about coping mechanisms and healthy lifestyle factors such as making sure she could sleep, exercise and eat as well. 2. Flu vaccination given in the office today. I will see her back in 3 months or sooner if needed Diagnoses and all orders for this visit: Current moderate episode of major depressive disorder without prior episode (HCC) - buPROPion (Wellbutrin XL) 300 MG 24 hr tablet; Take 1 (one) tablet (300 mg total) by mouth daily . Needs flu shot - Influenza vaccine IIV4 18 yo or >,[employer] Note: This dictation was generated using [employer] voice recognition software. Please excuse any grammatical or spelling errors that may have occurred using the system. documented in this encounter [facility] 02-05-2022 History of Presen t illness Narrative .Subjective Patient ID: Lele Leon is a 36 y.o. female. Lele is a 36-year-old female presenting today to establish care in our office as she has moved to the area and it is easier to see a PCP closer. She would really like to talk about her mood symptoms. Says that she has been very frustrated because as her mood has declined, she is using healthy coping mechanism of eating and not exercising which is causing her weight to go up, blood pressure to go up and thus feel worse. She has been on Paxil in the past and was doing okay. Was on it for a few years and was seeing a counselor so she stopped the medication. They then tried a different medication when she realized she still needed something and felt very ill on the medication and has not been on anything since. She feels like her symptoms are mainly depression although she does have some anxious thoughts. Denies thoughts of wanting to harm herself or others. Denies visual or audible hallucinations. Denies shortness of breath, chest pain, changes to vision or hearing, or headaches. The following portions of the patient's history were reviewed and updated as appropriate: allergies, current medications, past family history, past medical history, past social history, past surgical history and problem list. Review of Systems Constitutional: Negative for appetite change, fatigue and fever. Respiratory: Negative for cough, chest tightness, shortness of breath and wheezing. Cardiovascular: Negative for chest pain and palpitations. Skin: Negative for color change and rash. Neurological: Negative for weakness, numbness and headaches. Psychiatric/Behavioral: Positive for dysphoric mood. Negative for decreased concentration, hallucinations, self-injury, sleep disturbance and suicidal ideas. The patient is not nervous/anxious. Objective Physical Exam Vitals and nursing note reviewed. Constitutional: General: She is not in acute distress. Appearance: She is well-developed. HENT: Head: Normocephalic and atraumatic. Neck: Thyroid: No thyroid mass or thyromegaly. Cardiovascular: Rate and Rhythm: Normal rate and regular rhythm. Heart sounds: S1 normal and S2 normal. No murmur heard. No friction rub. No gallop. Pulmonary: Effort: Pulmonary effort is normal. No tachypnea, bradypnea, accessory muscle usage or respiratory distress. Breath sounds: Normal breath sounds. No decreased breath sounds, wheezing or rales. Musculoskeletal: Cervical back: Normal range of motion and neck supple. Skin: General: Skin is warm and dry. Findings: No rash. Neurological: Mental Status: She is alert and oriented to person, place, and time. Psychiatric: Attention and Perception: Attention and perception normal. She is attentive. She does not perceive auditory or visual hallucinations. Mood and Affect: Affect normal. Mood is depressed. Mood is not anxious. Affect is not labile, blunt, angry or inappropriate. Speech: Speech normal. She is communicative. Speech is not rapid and pressured, delayed, slurred or tangential. Behavior: Behavior normal. Behavior is not agitated, slowed, aggressive, withdrawn, hyperactive or combative. Behavior is cooperative. Thought Content: Thought content normal. Thought content is not paranoid or delusional. Thought content does not include homicidal or suicidal ideation. Thought content does not include homicidal or suicidal plan. Judgment: Judgment normal. Judgment is not impulsive or inappropriate. Assessment/Plan: 1. Major depressive disorder-discussed with patient mental health and how we can break it into 3 areas for management including lifestyle factors, counseling and medication. We discussed lifestyle factors including eating well, gentle exercise, appropriate sleep and healthy coping mechanisms. Right now she is using food as a coping mechanism. I think ultimately our goal would be to get these things more appropriately managed and I think it will help her but as she denied discussed, I think she does need some additional assistance. She qualifies for EAP and I would recommend that she seek them out for some counseling sessions. Lastly we did discuss medication. I think with the food coping mechanism, she would do well with Wellbutrin as it can give her the dopamine she is searching for. Patient agreeable. We will start her on Wellbutrin 150 mg daily. If she has any side effects though we talked about her being on different medications in the past and [facility] may be a good option for her. I want a see her back in 1 month or sooner if needed Diagnoses and all orders for this visit: Current moderate episode of major depressive disorder without prior episode (HCC) - buPROPion (Wellbutrin XL) 150 MG 24 hr tablet; Take 1 (one) tablet (150 mg total) by mouth daily . Note: This dictation was generated using [employer] voice recognition software. Please excuse any grammatical or spelling errors that may have occurred using the system. Over the last 2 weeks, how often have you been bothered by any of the following problems? Little interest or pleasure in doing things More than half the days Feeling down, depressed, or hopeless Nearly every day PHQ-2 Total Score 5 Trouble falling or staying asleep, or sleeping too much Nearly every day Feeling tired or having little energy Nearly every day Poor appetite or overeating Nearly every day Feeling bad about yourself - or that you are a failure or have let yourself or your family down More than half the days Trouble concentrating on things, such as reading the newspaper or watching television Several days Moving or speaking so slowly that other people could have noticed. Or the opposite - being fidgety or restless that you have been moving around a lot more than usual Several days Thoughts that you would be better off , or hurting yourself in some way Not at all PHQ-9 Total Score 18 If you checked off any problems, how difficult have these problems made it for you to do your work, take care of things at home, or get along with other people? Somewhat difficult documented in this encounter [facility] 10-02-2021 History of Presen t illness Narrative Patient informed of negative right breast biopsy results. Patient also informed of the need for a repeat mammogram and ultrasound in 6 months. Recall placed in computer. documented in this encounter [facility] 10-01-2021 History of Presen t illness Narrative Met with patient prior to biopsy. Provided review of biopsy procedure and explanation of post-bx care instructions in printed and verbal forms. Pt verbalized good understanding. Medications and allergies were reviewed. Biopsy completed without complications. Bleeding stopped with manual pressure applied per tech. Steri-strips & ice pack applied to biopsy site. Patient discharged to home in good condition. documented in this encounter [facility] 10-01-2021 Instructions Elisha Fuentes RN - 10/01/2021 10:25 AM EDT After the Biopsy: We will apply pressure over the biopsy site until bleeding stops. Then we will apply steri-strips, which are strips of paper-like tape on the skin incision. Remove the steri-strips after five days if they are still on. If irritation occurs before five days, you may remove the strips and apply a band-aid. If you are allergic to steri-strips we will apply surgical glue. This will flake off on its own. Any bruising at the biopsy site should fade in one to two weeks. We will apply an ice pack to the biopsy site before you leave. At home, apply an ice pack to your breast to relieve swelling and reduce bruising. Apply ice for 20 minutes at a time, with a 30 minute break in between. Do not apply ice directly to your skin. Continue this until you go to bed tonight. You may take over the counter medications like Tylenol for discomfort. Do not take aspirin or aspirin-like drugs, like Motrin , Advil , or Aleve . If you have bleeding at home, apply direct pressure to the biopsy site with 1-2 fingers for 5 minutes without rechecking the site. After 5 minutes, check for bleeding. If the bleeding continues, repeat this process 2-3 times. In most cases bleeding will stop with steady pressure. You may shower 24 hours after your biopsy. Avoid heavy activity and lifting for 24 hours. Do not lift anything over 5 pounds for 24 hours after the biopsy. If you are feeling well, you may resume normal activities after 24 hours. Wear a tight bra after the biopsy and to bed the first night. Call your doctor if you have: Uncontrolled or heavy bleeding after you have applied direct pressure. Redness or warmth at the biopsy site Pain that is not relieved by your normal pain medication Fever of 101 or higher Biopsy Results Your doctor will have the biopsy results within three to four business days. Call your doctor (breast surgeon) if you have not received the results within that time. For more information, contact your breast health nurse. You may call your doctor (breast surgeon) at any time. documented in this encounter [facility] 10-01-2021 History of Presen t illness Narrative Lele Macario is a 36-year-old female seen in the office today after an abnormal mammogram and ultrasound of the right breast had occurred. The patient has a family history of breast cancer occurring in her mother in her 60s. She had taken some Depo-Provera for awhile, but has not been on it lately. The patient has no symptoms referable to the breast. EXAMINATION She is a healthy, well-developed, well-nourished 36-year-old female. She is 5 feet 2 inches, 292 pounds. She has large breast size bilaterally with no visible or palpable abnormality. She plans to undergo percutaneous biopsy later today. We will contact her later in the week with the biopsy results. Examination chaperoned by Kaitlin Tay. documented in this encounter [facility] 09-21-2021 History of Presen t illness Narrative Dr. Lim met with patient to discuss imaging results and recommendations. He is recommending surgical consult and Right ultrasound breast biopsy Explained Breast Health Nurse role in assisting patient scheduling, education, and support. Referral to Dr. Mcdaniel. Appointment scheduled with Dr. Mcdaniel on 10/01/21 at [facility]. Biopsy appointment scheduled on 10/01/21 at [facility]. Patient Accepted first available appointment offered for consultation and/or biopsy. Anticoagulants = None Allergies = ibuprofen, bee venom. After Visit Summary reviewed with patient to include appointment information, biopsy education and office contact information. All questions answered. documented in this encounter [facility] 09-21-2021 Instructions Elisha Fuentes RN - 09/21/2021 1:44 PM EDT Ultrasound-Guided Breast Biopsy: Ultrasound-guided breast biopsy is a procedure done to remove samples of breast tissue. This breast tissue is examined in the laboratory for signs of disease. To Prepare for Your Biopsy: Please arrive 30 minutes before the time of your biopsy This procedure takes about 45 to 60 minutes for each site being biopsied. Avoid aspirin or aspirin-like drugs, such as Motrin , Advil , or Aleve for one week before the biopsy. Check with your doctor about taking prescription medicines. Wear a sports bra or a tight bra. Eat a light meal before your biopsy. Before the biopsy, you will undress from the waist up and put on a hospital gown, so wear a two-piece outfit. If you might be , tell the technologist before the procedure begins. What to Expect: During the biopsy, you will lie on an ultrasound table. You must lie still during the procedure. The web page developer places warm gel on your breast and uses a scanner to locate the area to be biopsied. The doctor will numb the site with a numbing medicine. Once your breast is numb, a small levon about 1/8 to inch is made in the skin and the samples of tissue are removed using a hollow needle. The site of the biopsy may then be marked with a very small, safe, permanent clip. You will not be able to feel the clip once it is placed in your breast. After the Biopsy: We will apply pressure over the biopsy site until bleeding stops. Then we will apply steri-strips, which are strips of paper-like tape on the skin incision. Remove the steri-strips after five days if they are still on. If irritation occurs before five days, you may remove the strips and apply a band-aid. If you are allergic to steri-strips we will apply surgical glue. This will flake off on its own. Any bruising at the biopsy site should fade in one to two weeks. We will apply an ice pack to the biopsy site before you leave. At home, apply an ice pack to your breast to relieve swelling and reduce bruising. Apply ice for 20 minutes at a time, with a 30 minute break in between. Do not apply ice directly to your skin. Continue this until you go to bed tonight. You may take over the counter medications like Tylenol for discomfort. Do not take aspirin or aspirin-like drugs, like Motrin , Advil , or Aleve . If you have bleeding at home, apply direct pressure to the biopsy site with 1-2 fingers for 5 minutes without rechecking the site. After 5 minutes, check for bleeding. If the bleeding continues, repeat this process 2-3 times. In most cases bleeding will stop with steady pressure. You may shower 24 hours after your biopsy. Avoid heavy activity and lifting for 24 hours. Do not lift anything over 5 pounds for 24 hours after the biopsy. If you are feeling well, you may resume normal activities after 24 hours. Wear a tight bra after the biopsy and to bed the first night. Call your doctor if you have: Uncontrolled or heavy bleeding after you have applied direct pressure. Redness or warmth at the biopsy site Pain that is not relieved by your normal pain medication Fever of 101 or higher Biopsy Results Your doctor will have the biopsy results within three to four business days. Call your doctor (breast surgeon) if you have not received the results within that time. For more information, contact your breast health nurse. You may call your doctor (breast surgeon) at any time. documented in this encounter [facility] 09-10-2021 History of Presen t illness Narrative Images from the original note were not included. 36 y.o. female Patient's last menstrual period was 09/08/2021. enters for Breast Problem (lump) . Weight: 130.4 kg (287 lb 6.4 oz) Height: 5' 2 BMI: Body mass index is 52.57 kg/m . Vitals: BP (!) 139/94 (BP Location: Left arm, Patient Position: Sitting) Pulse 89 Ht 5' 2 Wt 130.4 kg (287 lb 6.4 oz) LMP 09/08/2021 BMI 52.57 kg/m Patient's last menstrual period was 09/08/2021. HPI Patient arrives to the office with complaints of a tender lump in her right axillary that started a few months ago. It is purplish in color and hard to the touch. There is no warmth or drainage noted. There are some other smaller similar areas around her axillary area. She does report that she gets similar sores on her abdomen as well but denies getting them in her groin area. They resemble hidradenitis and I encouraged her to use warm compresses on them and do not pick at the areas. There is a strong family history of breast cancer in her family as her mother when she was 26 of breast cancer. She reports that her mother was diagnosed at age 57 with the breast cancer. We we will do a screening for breast cancer. Physical Exam Constitutional: Appearance: Normal appearance. She is well-developed. HENT: Head: Normocephalic. Eyes: Conjunctiva/sclera: Conjunctivae normal. Cardiovascular: Rate and Rhythm: Normal rate. Pulmonary: Effort: Pulmonary effort is normal. Chest: Breasts: Breasts are symmetrical. Right: No swelling, bleeding, inverted nipple, mass, nipple discharge, skin change or tenderness. Left: No swelling, bleeding, inverted nipple, mass, nipple discharge, skin change or tenderness. Abdominal: Palpations: Abdomen is soft. Musculoskeletal: General: Normal range of motion. Cervical back: Normal range of motion and neck supple. Skin: General: Skin is warm and dry. Neurological: Mental Status: She is alert and oriented to person, place, and time. Psychiatric: Speech: Speech normal. Behavior: Behavior normal. Thought Content: Thought content normal. Judgment: Judgment normal. Review of Systems Constitutional: Negative for activity change, appetite change, chills, fatigue and fever. HENT: Negative. Eyes: Negative. Respiratory: Negative for apnea, cough, chest tightness and shortness of breath. Cardiovascular: Negative for chest pain and leg swelling. Gastrointestinal: Negative for abdominal distention, abdominal pain, anal bleeding, constipation, diarrhea and nausea. Genitourinary: Negative for difficulty urinating, dysuria, genital sores, hematuria and urgency. Musculoskeletal: Negative for arthralgias, back pain and gait problem. Skin: Negative for color change and pallor. Allergic/Immunologic: Negative for environmental allergies and food allergies. Psychiatric/Behavioral: Negative for agitation, behavioral problems and confusion. Assessment and Plan Dictation: Hidradenitis -Warm compresses Family history of breast cancer -Screening mammogram RTO if symptoms persist or worsens. 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 Suppurative hidradenitis 2. Family history of breast cancer 3. Encounter for screening for malignant neoplasm of breast, unspecified screening modality Mammography Screening Emile Bilateral Orders Placed This Encounter Mammography Screening Emile Bilateral Standing Status: Future Standing Expiration Date: 11/10/2022 Scheduling Instructions: This for a routine screening only!!! If patient is having breast complaints, schedule a diagnostic mammogram, and inform patient that we must have an order from their physician. If patient under 40 years, ok to schedule, but script needed. An ordering physician must be selected: either Self Referral no Dr when without an order or the physician who wrote the order. FOR MOBILE MAMMOGRAPHY SAME DAY ADD-ONS, CANCELLATIONS OR MOVED APPTS, PLEASE CALL [phone] THIS IS THE ONLY WAY OF THEM FINDING OUT ABOUT THE APPOINTMENT. If there is an available appointment for today, you are authorized to schedule a same day add-on. Medicare patients can have their mammogram done in the same calendar month this year as they did last year. They do not need to wait a year and 1 day. Example: July = July, September = September. (mammogram done last year October 23, this year can be scheduled for any day in September). Must be the same calendar month. All other patients need to check with their insurance. Self pay??-refer to [facility] if applicable- [phone] Order Specific Question: Reason for Exam: Answer: family history of breast cancer (mother) Order Specific Question: Is the patient ? Answer: No Order Specific Question: Release to patient Answer: Immediate No results found for this or any previous visit (from the past 336 hour(s)). Note: This dictation was generated using [employer] voice recognition software. Please excuse any grammatical or spelling errors that may have occurred using the system Priya Jorge CNP Patient here due to lump on right breast that she has had for a couple months. She has history of getting lumps with menstrual cycle and they resolve. This one has not decreased and has gotten bigger and bra is causing irritation. documented in this encounter [facility] 04-29-2021 History of Presen t illness Narrative Patient called [facility] with concern for COVID-19 and need for testing. [place]/ Department: [facility] Fever: no S/S : cough, sore throat, headache Known positive covid exposure?: no Per IDSA guidelines, testing is indicated. Suspect COVID, order placed. Patient aware this phone consult is for testing only. They will follow up with PCP/UC/ED for symptom management, if needed. documented in this encounter [facility] Evaluation note Diagnosis Encntr for obs for susp expsr to oth biolg agents ruled out- Primary [facility] Diagnosis Suppurative hidradenitis- Primary Hidradenitis Family history of breast cancer Family history of malignant neoplasm of breast Encounter for screening for malignant neoplasm of breast, unspecified screening modality [facility] Diagnosis Mass of right breast, unspecified quadrant- [facility] Diagnosis Abnormal [facility] of right breast- Primary [facility] Diagnosis Current moderate episode of major depressive disorder without prior episode (HCC)- Primary [facility] Diagnosis Current moderate episode of major depressive disorder without prior episode (HCC)- Primary Needs flu shot Need for prophylactic vaccination and inoculation against influenza [facility] Diagnosis Current moderate episode of major depressive disorder without prior episode (HCC)- Primary Overactive bladder Hypertonicity of bladder [facility] Diagnosis Prediabetes- Primary Other abnormal glucose Current moderate episode of major depressive disorder without prior episode (HCC) [facility] Diagnosis Current moderate episode of major depressive disorder without prior episode (HCC)- Primary Prediabetes Other abnormal glucose Multiple joint complaints [facility] Diagnosis Discharge from right nipple- Primary [facility] Diagnosis Family history of breast cancer- Primary Family history of malignant neoplasm of breast [facility] Diagnosis Nipple discharge- Primary Other sign and symptom in breast Family history of breast cancer in first degree relative Family history of malignant neoplasm of breast [facility] Diagnosis 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 [facility] Diagnosis Current moderate episode of major depressive disorder without prior episode (HCC)- Primary Prediabetes Other abnormal glucose Mastitis Inflammatory disease of breast [facility] Diagnosis Mastitis- Primary Inflammatory disease of breast [facility] Diagnosis Cellulitis of right breast- Primary Mastitis Inflammatory disease of breast [facility] Diagnosis Cellulitis of right breast- Primary History of lump of right breast Abscess of breast Inflammatory disease of breast [facility] Diagnosis Abscess of breast- Primary Inflammatory disease of breast Cellulitis of right breast [facility] Diagnosis Abscess of breast- Primary Inflammatory disease of breast Cellulitis of right breast [facility] Attachments The following attachments cannot be sent through Care Everywhere. * Hidradenitis Suppurativa (Portuguese) [facility] Attachments The following attachments cannot be sent through Care Everywhere. * Cervical: Exercises (Portuguese) [facility] * Tejinder Case MD - 03/18/2018 Continue to soak in warm water and dish soap, call Dr. Case symptoms worsens over the weekend, clindamycin 4 times daily as directed The following attachments cannot be sent through Care Everywhere. * Paronychia of the Finger or Toe (Portuguese) in this encounter* Instructions* Surekha Quintanilla MD - 12/06/2019 CT scans of your-thoracic and lumbar spine were completed. There is no evidence of fracture or dislocation. There is a diffuse disc bulge at L5. This does not appear to be acute. As a result this is likely a musculoskeletal sprain. You may take Tylenol or ibuprofen as needed. I've also given new prescription for a muscle relaxant and Lidoderm patches. documented in this encounter Assessments Diagnosis Paronychia of right thumb - Primary Onychia and paronychia of finger Diagnosis Foot pain, right- Primary Pain in soft tissues of limb Elevated blood pressure reading Elevated blood pressure reading without diagnosis of hypertension Tobacco use Diagnosis Encounter for well woman exam without gynecological exam- Primary Elevated TSH Other abnormal blood chemistry BMI 45.0-49.9, adult Body Mass Index 45.0-49.9, adult Diagnosis Post-traumatic stress Posttraumatic stress disorder Diagnosis Essential hypertension Unspecified essential hypertension Long Q-T syndrome Long QT syndrome Tobacco use Tobacco use disorder Diagnosis Lumbar disc disease- Primary Other and unspecified disc disorder of lumbar region Diagnosis Chronic right-sided low back pain with bilateral sciatica- Primary Menorrhagia with regular cycle Excessive or frequent menstruation Diagnosis Essential hypertension- Primary Unspecified essential hypertension Post-traumatic stress Posttraumatic stress disorder Diagnosis Post-traumatic stress- Primary Posttraumatic stress disorder Diagnosis Well adult health check- Primary Unspecified general medical examination Reason for Referral Status Reason Specialty Diagnoses / Procedures Referred By Contact Referred To Contact Authorized Specialty Services Required/Patient 's Best Interest Podiatry Diagnoses Foot pain, right Yasmin Brown, HOTEL CUSTODIAN [address] [place] [id number] Kalin Logan, DPM [address] [id number] Status Reason Specialty Diagnoses / Procedures Re ferred By Contact Referred To Contact New Request Diagnoses Essential hypertension Procedures ECG Lana Lombardi APRN-HOTEL CUSTODIAN [address] [place] [address] Status Reason Specialty Diagnoses / Procedures Referred By Contact Referred To Contact New Request PHARMACEUTICAL REPRESENTATIVE Diagnoses Menorrhagia with regular cycle Lana Lombardi APRN-HOTEL CUSTODIAN [address] [place] [address] Susie Sheldon, DO [address] [place] [id number] Status Reason Specialty Diagnoses / Procedures Referred By Contact Referred To Contact New Request Procedures ECG Lana Lombardi, SIDE PULLER-HOTEL CUSTODIAN [address] [place] [address] Status Reason Specialty Diagnoses / Procedures Referred By Contact Referred To Contact Schedule Outgoing - Transfer of Care Psychiatry Diagnoses Post-traumatic stress Lana Lombardi SIDE PULLER-HOTEL CUSTODIAN [address] [place] [address] Specialty Diagnoses / Procedures Referred By Contac t Referred To Contact Radiology Diagnoses Encounter for screening for malignant neoplasm of breast, unspecified screening modality Procedures Mammography Screening Emile Bilateral Priya Jorge Lucila, HOTEL CUSTODIAN [address] [place] [address] Referral ID Status Reason Start Date Expiration Date V isits Requested Visits Authorized [id number] Authorized 09/10/2021 09/10/2022 1 1 Specialty Diagnoses / Procedures Referred By Contac t Referred To Contact Radiology Diagnoses Mass of right breast, unspecified quadrant Procedures US Breast Biopsy Right Ashley Mcdaniel III, MD [address] [place] [address] Referral ID Status Reason Start Date Expiration Date V isits Requested Visits Authorized [id number] New Request 09/21/2021 09/21/2022 1 1 Specialty Diagnoses / Procedures Referred By Contac t Referred To Contact Radiology Diagnoses Discharge from right nipple Procedures Mammography Diagnostic Emile Bilateral Ariana Garza PA-C [address] [place] [address] Referral ID Status Reason Start Date Expiration Date V isits Requested Visits Authorized [id number] Authorized 04/01/2023 03/31/2024 1 1 Specialty Diagnoses / Procedures Referred By Contac t Referred To Contact Radiology Diagnoses Discharge from right nipple Procedures US Breast Right Complete Ariana Garza PA-C [address] [place] [address] Referral ID Status Reason Start Date Expiration Date V isits Requested Visits Authorized [id number] New Request 04/01/2023 03/31/2024 1 1 Specialty Diagnoses / Procedures Referred By Contac t Referred To Contact Genetics Diagnoses Family history of breast cancer Ashley Mcdaniel III, MD [address] [place] [address] [facility] [place] Referral ID Status Reason Start Date Expiration Date V isits Requested Visits Authorized [id number] Authorized 05/14/2023 05/13/2024 1 1 Specialty Diagnoses / Procedures Referred By Contac t Referred To Contact Radiology Diagnoses Nipple discharge Family history of breast cancer in first degree relative Procedures MR Breast Bilateral With And Without Contrast Ashley Mcdaniel III, MD [address] [place] [id number] Referral ID Status Reason Start Date Expiration Date V isits Requested Visits Authorized [id number] New Request 05/14/2023 05/13/2024 1 1 Specialty Diagnoses / Procedures Referred By Contac t Referred To Contact Radiology Procedures MR Breast Core Biopsy Right Ashley Mcdaniel III, MD [address] [place] [id number] Referral ID Status Reason Start Date Expiration Date V isits Requested Visits Authorized [id number] Pending Review 06/18/2023 06/17/2024 1 1 Specialty Diagnoses / Procedures Referred By Contac t Referred To Contact Radiology Procedures US Breast Biopsy Right Ashley Mcdaniel III, MD [address] [place] [id number] Referral ID Status Reason Start Date Expiration Date V isits Requested Visits Authorized [id number] Pending Review 06/18/2023 06/17/2024 1 1 Specialty Diagnoses / Procedures Referred By Contac t Referred To Contact Radiology Procedures US Breast Right Complete Ashley Mcdaniel III, MD [address] [place] [id number] Referral ID Status Reason Start Date Expiration Date V isits Requested Visits Authorized [id number] New Request 06/18/2023 06/17/2024 1 1 Specialty Diagnoses / Procedures Referred By Contac t Referred To Contact Diagnoses Prediabetes Ariana Garza PA-C [address] [place] [address] Referral ID Status Reason Start Date Expiration Date Visits Re quested Visits Authorized [id number] Closed 1 1 Specialty Diagnoses / Procedures Referred By Contac t Referred To Contact Radiology Diagnoses Mastitis Procedures US Breast Right Complete Kumpf, Tracy Licona II, MD [address] [place] [address] Referral ID Status Reason Start Date Expiration Date V isits Requested Visits Authorized [id number] New Request 09/30/2023 09/29/2024 1 1 Instructions * Patient Instructions* Yasmin Brown, HOTEL CUSTODIAN - 10/13/2018 11:35 AM EDT Foot Pain: Care Instructions Your Care Instructions Foot injuries that cause pain and swelling are fairly common. Almost all sports or home repair projects can cause a misstep that ends up as foot pain. Normal wear and tear, especially as you get older, also can cause foot pain. Most minor foot injuries will heal on their own, and home treatment is usually all you need to do. If you have a severe injury, you may need tests and treatment. Follow-up care is a serrano part of your treatment and safety. Be sure to make and go to all appointments, and call your doctor if you are having problems. It's also a good idea to know your test resultsand keep a list of the medicines you take. How can you care for yourself at home? Take pain medicines exactly as directed. ? If the doctor gave you a prescription medicine for pain, take it as prescribed. ? If you are not taking a prescription pain medicine, ask your doctor if you can take an [id number] medicine. Rest and protect your foot. Take a break from any activity that may cause pain. Put ice or a cold pack on your foot for 10 to 20 minutes at a time. Put a thin cloth between the ice and your skin. Prop up the sore foot on a pillow when you ice it or anytime you sit or lie down during the next 3 days. Try to keep it above the level of your heart. This will help reduce swelling. Your doctor may recommend that you wrap your foot with an elastic bandage. Keep your foot wrapped for as long as your doctor advises. If your doctor recommends crutches, use them as directed. Wear roomy footwear. As soon as pain and swelling end, begin gentle exercises of your foot. Your doctor can tell you which exercises will help. When should you call for help? Call 911 anytime you think you may need emergency care. For example, call if: Your foot turns pale, white, blue, or cold. Call your doctor now or seek immediate medical care if: You cannot move or stand on your foot. Your foot looks twisted or out of its normal position. Your foot is not stable when you step down. You have signs of infection, such as: ? Increased pain, swelling, warmth, or redness. ? Red streaks leading from the sore area. ? Pus draining from a place on your foot. ? A fever. Your foot is numb or tingly. Watch closely for changes in your health, and be sure to contact your doctor if: You do not get better as expected. You have bruises from an injury that last longer than 2 weeks. Where can you learn more? Log into your personal health record on [email or web address] and enter D999 in the Education box to learn more about Foot Pain: Care Instructions. Current as of: January 15, 2018 Content Version: 12.0 0860-7650 [employer]. Care instructions adapted under license by your healthcare professional. If you have questions about a medical condition or this instruction, always ask your healthcare professional. [employer] disclaims any warranty or liability for your use of this information. Heel Pain: Care Instructions Your Care Instructions You can have heel pain from an injury or from everyday overuse, such as running or walking a lot. Plantar fasciitis is the most common cause of heel pain. In this condition, the bottom of your foot from the front of the heel to the base of the toes is sore and hard to walk on. Your heel can get better with rest, anti-inflammatory pain medicines, and stretching exercises. Follow-up care is a serrano part of your treatment and safety. Be sure to make and go to all appointments, and call your doctor if you are having problems. It's also a good idea to know your test resultsand keep a list of the medicines you take. How can you care for yourself at home? Rest your feet often. Reduce your activity to a level that lets you avoid pain. If possible, do notrun or walk on hard surfaces. Take anti-inflammatory medicines to reduce heel pain. These include ibuprofen (Advil, Motrin) and naproxen (Aleve). Read and follow all instructions on the label. Put ice or a cold pack on your heel for 10 to 20 minutes at a time. Try to do this every 1 to 2 hours for the next 3 days (when you are awake). Put a thin cloth between the ice and your skin. If ice isn't helping after 2 or 3 days, try heat, such as a heating pad set on low. If your doctor says it is okay, try these calf stretches. Tight calf muscles can cause heel pain ormake it worse. ? Stand about 1 foot from [address] the palms of both hands against the wall at chest level andlean forward against the wall. Put the leg you want to stretch about a step behind your other leg. Keep your back heel on the floor and bend your front knee until you feel a stretch in the back leg. Hold this position for 15 to 30 seconds. Repeat the exercise 2 to 4 times a session. Do 3 to 4 sessions a day. ? Sit down on the floor or a mat with your feet stretched in front of you. Roll up a towel lengthwise, and loop it over the ball of your foot. Holding the towel at both ends, gently pull the towel toward you to stretch your foot. Hold this position for 15 to 30 seconds. Repeat the exercise 2 to 4 times a session. Do 3 to 4 sessions a day. Wear a night splint if your doctor suggests it. A night splint holds your foot with the toes pointed up. This position gives the bottom of your foot a constant, gentle stretch. Wear shoes with good arch support. Athletic shoes or shoes with a well-cushioned sole are good choices. Try a heel lift, heel cup or shoe insert (orthotic) to help cushion your heel. You can buy these atmany shoe stores. Use them in both shoes, even if only one foot hurts. Maintain a healthy weight. This puts less strain on your feet. When should you call for help? Call your doctor now or seek immediate medical care if: You have heel pain with fever, redness, or warmth in your heel. You have numbness or tingling in your heel. Watch closely for changes in your health, and be sure to contact your doctor if: You cannot put weight on the sore foot. Your heel pain lasts more than 2 weeks. Where can you learn more? Log into your personal health record on https://[employer].Virool and enter S299 in the Education box to learn more about Heel Pain: Care Instructions. Current as of: January 18, 2018 Content Version: 12.0 6059-8556 [employer]. Care instructions adapted under license by your healthcare professional. If you have questions about a medical condition or this instruction, always ask your healthcare professional. [employer] [employer] disclaims any warranty or liability for your use of this information. Follow up with the rehab services aide. Ice, elevate and Tylenol. documented in this encounter* Patient Instructions* Lana Lombardi APRN-CNP - 11/24/2018 1:30 PM EDT Encounter for well woman exam without gynecological exam Routine. Well appearing adult, developmentally appropriate for age, normal exam for age. Chronic conditions stable. Refills provided as needed. Age-appropriate counseling completed, including discussion of screening labs and tests; and vaccines appropriate for age and risk factors. The patient is advised to The patient is advised to follow a low fat, low cholesterol diet, attemptto lose weight and return for routine annual checkups. Lele was seen today for establish care and well adult. - CBC, EDIF, PLATELET; Future - COMPREHENSIVE METABOLIC PANEL; Future - LIPID PANEL W CALCULATED LDL; Future - TSH W/FT4 REFLEX; Future Elevated TSH Chronic. Repeat TSH ordered. - TSH W/FT4 REFLEX; Future documented in this encounter* Patient Instructions* Lana oLmbardi APRN-CNP - 06/25/2019 1:20 PM EST Please check your blood pressure at least once a day. Record the readings and bring them with you to your June appointment. losartan Pronunciation: annia HOLLAND ari Brand: Mel What is the most important information I should know about losartan? Do not use if you are , and tell your doctor right away if you become . Losartan can cause injury or to the unborn baby during your second or third trimester. If you have diabetes, do not use losartan together with any medication that contains aliskiren (a blood pressure medicine). What is losartan? Losartan is an angiotensin II receptor antagonist (sometimes called an ARB iza). Losartan is used to treat high blood pressure (hypertension) in adults and children who are at least 6 years old. It is also used to lower the risk of stroke in certain people with heart disease. Losartan is also used to slow long-term kidney damage in people with type 2 diabetes who also have high blood pressure. Losartan may also be used for purposes not listed in this medication guide. What should I discuss with my healthcare provider before taking losartan? You should not use losartan if you are allergic to it. If you have diabetes, do not use losartan together with any medication that contains aliskiren (a blood pressure medicine). You may also need to avoid taking losartan with aliskiren if you have kidney disease. Do not use if you are , and tell your doctor right away if you become . Losartan can cause injury or to the unborn baby if you take the medicine during your second or third trimester. Tell your doctor if you have ever had: kidney disease; liver disease; congestive heart failure; an electrolyte imbalance (such as high levels of potassium in your blood); if you are on a low-salt diet; or if you are dehydrated. You should not breast-feed while using this medicine. Losartan is not approved for use by anyone younger than 6 years old. How should I take losartan? Follow all directions on your prescription label and read all medication guides or instruction sheets. Your doctor may occasionally change your dose. Use the medicine exactly as directed. You may take losartan with or without food. Call your doctor if you are sick with vomiting or diarrhea, or if you are sweating more than usual.You can easily become dehydrated while taking losartan. This can lead to very low blood pressure, aserious electrolyte imbalance, or kidney failure. Your blood pressure will need to be checked often and you may need other blood and urine tests. It may take 3 to 6 weeks before your blood pressure is under control. For best results, keep using the medicine as directed. Talk with your doctor if your condition does not improve after 3 weeks of treatment. If you have high blood pressure, keep using this medicine even if you feel well. High blood pressure often has no symptoms. You may need to use blood pressure medicine for the rest of your life. Store at room temperature away from moisture, heat, and light. What happens if I miss a dose? Take the medicine as soon as you can, but skip the missed dose if it is almost time for your next dose. Do not take two doses at one time. What happens if I overdose? Seek emergency medical attention or call the Poison Help line at . What should I avoid while taking losartan? Drinking alcohol can further lower your blood pressure and may increase certain side effects of losartan. Do not use potassium supplements or salt substitutes, unless your doctor has told you to. Avoid getting up too fast from a sitting or lying position, or you may feel dizzy. What are the possible side effects of losartan? Get emergency medical help if you have signs of an allergic reaction: hives; difficult breathing; swelling of your face, lips, tongue, or throat. Call your doctor at once if you have: a light-headed feeling, like you might pass out; pain or burning when you urinate; high potassium level --nausea, weakness, tingly feeling, chest pain, irregular heartbeats, loss of movement; or kidney problems --little or no urination, rapid weight gain, painful or difficult urination, swelling in your hands, feet, or ankles. Common side effects may include: dizziness; back pain; or cold symptoms such as stuffy nose, sneezing, sore throat. This is not a complete list of side effects and others may occur. Call your doctor for medical advice about side effects. You may report side effects to FDA at 6-888-SEU-1082. What other drugs will affect losartan? Tell your doctor about all your other medicines, especially: a diuretic or water pill ; other blood pressure medications; lithium; or NSAIDs (nonsteroidal anti-inflammatory drugs) --aspirin, ibuprofen (Advil, Motrin), naproxen (Aleve), celecoxib, diclofenac, indomethacin, meloxicam, and others. This list is not complete. Other drugs may affect losartan, including prescription and iwpv-utc-yoegxpz medicines, vitamins, and herbal products. Not all possible drug interactions are listed here. Where can I get more information? Your pharmacist can provide more information about losartan. Remember, keep this and all other medicines out of the reach of children, never share your medicines with others, and use this medication only for the indication prescribed. Every effort has been made to ensure that the information provided by [employer]. ('[employer]') is accurate, up-to-date, and complete, but no guarantee is made to that effect. Drug information contained herein may be time sensitive. [employer] information has been compiled for use by healthcare practitioners and consumers in the [place] and therefore [employer] does not warrant that uses outside of the [place] are appropriate, unless specifically indicated otherwise. [facility] drug information does not endorse drugs, diagnose patients or recommend therapy. [facility] drug information isan informational resource designed to assist licensed healthcare practitioners in caring for their p atients and/or to serve consumers viewing this service as a supplement to, and not a substitute for, the expertise, skill, knowledge and judgment of healthcare practitioners. The absence of a warningfor a given drug or drug combination in no way should be construed to indicate that the drug or drug combination is safe, effective or appropriate for any given patient. [employer] does not assume any responsibility for any aspect of healthcare administered with the aid of information [employer] provides. The information contained herein is not intended to cover all possible uses, directions, precautions, warnings, drug interactions, allergic reactions, or adverse effects. If you have questions about the drugs you are taking, check with your doctor, nurse or pharmacist. Copyright 5555-3578 [employer]. Version: 16.01. Revision date: 08/05/2018. Care instructions adapted under license by your healthcare professional. If you have questions about a medical condition or this instruction, always ask your healthcare professional. [employer] disclaims any warranty or liability for your use of this information. Heart Healthy Eating with DASH DASH, or Dietary Approaches to Stop Hypertension, is an eating plan that lowers blood pressure and LDL (bad) cholesterol to reduce your risk of getting heart disease. Your health care provider may also recommend DASH to prevent or control other diseases and conditions, such as stroke, type 2 diabetes, and kidney stones. Along with DASH, other lifestyle changes can help improve your health. They include staying at a healthy weight, exercising, and not smoking. Talk to your provider for support as you make changes to your diet and lifestyle. Follow the DASH eating plan The food groups listed show examples of daily or weekly servings for a 2,885-nazijkj-v-day diet. You may need more or less servings each day based on your calorie (energy) needs. Talk to your provider for support. Sodium - limit to 2,300 mg or less per day Your provider may recommend 1,500 mg or less per day. 1 teaspoon of salt has about 2,300 mg of sodium. Most of the sodium in our diets comes from processed foods, like lunch meat, canned soups and vegetables, and boxed or packaged mixes. Read food labels to learn how much sodium is in a food. Grains - eat 6 to 8 servings per day 1 serving equals: ? 1 slice of bread ? 1 ounce of dry cereal (about to 1 cups, depending on cereal type) ? cup of cooked rice, pasta, grains, or cereal Choose whole grains (100% whole wheat or whole grain bread, brown rice, quinoa, or oatmeal) over refined grains (white flour, degermed cornmeal, white bread, or white rice). Vegetables - eat 4 to 5 servings per day 1 serving equals: ? 1 cup raw, leafy vegetables ? cup chopped raw or cooked vegetables ? cup low-sodium vegetable juice Fruits - eat 4 to 5 servings per day 1 serving equals: ? 1 medium fruit ? cup dried fruit ? cup fresh, frozen, or canned fruit ? cup fruit juice Choose whole fruits (fresh, frozen, or dried) over juice. Fat-free or low-fat dairy - eat 2 to 3 servings per day 1 serving equals: ? 1 cup fat-free or 1% low-fat milk ? 1 ounces low-fat cheese ? 6 ounces fat-free or low-fat yogurt Lean meats, poultry, and fish - eat 6 to 8 servings per day 1 serving equals: ? 1 ounce cooked meat, fish, or poultry ? 1 egg Trim away visible fat. Remove skin from poultry. Use low-fat cooking methods, like broil, roast, poach, bake, and grill. Limit meat to 3 ounces at meals (about the size of the palm of your hand). Limit egg yolks to 4 per week. Fats and oils - eat 2 to 3 servings per day 1 serving equals: ? 1 teaspoon butter, margarine, or oil ? 1 tablespoon mayonnaise ? 2 tablespoons salad dressing Use small amounts of butter or margarine. Use olive oil as your first choice for oils. Seeds, nuts, and legumes (beans, lentils, and peas) - eat 4 to 5 servings per week 1 serving equals: ? 1/3 cup or 1 ounces of nuts ? 2 tablespoons nut butter ? 2 tablespoons or ounce seeds ? cup cooked beans, lentils, or peas Eat more vegetarian or meatless meals. Sweets and added sugars - eat 5 or less servings per week 1 serving equals: ? 1 tablespoon of sugar, honey, maple syrup, or chocolate sauce ? 1 tablespoon jelly or jam ? cup sorbet, sherbet, or ice cream ? 2 small cookies Keep sugar on the food label to less than 10 grams per serving. Men: limit sugar to no more than 150 calories or about 3 tablespoons (38 grams) per day. Women: limit sugar to no more than 100 calories or about 2 tablespoons (25 grams) per day. A 12-ounce can of regular soda has about 40 grams of sugar! Tips for success Read food labels to learn what is in a food. This will help you to make healthier choices. Look at calories, saturated fat, sodium, and sugars. Use the DASH 2-day sample menu below to help you get started. For more information about DASH, visit: National Heart, Lung, and Blood Protem at www.nhlbi.nih.gov/health/health-topics/topics/dash MedlinePlus at https://medlineplus.gov/dashdiet.html Adopt healthy lifestyle habits To boost the health benefits of eating well with DASH, practice these healthy lifestyle habits. Get 7 to 8 hours of sleep a night. Maintain a healthy weight. Talk to your doctor or dietitian about what is a healthy weight for yourheight. Exercise regularly. Get at least 150 minutes a week of moderate exercise, such as walking, biking, or swimming. This breaks down to just 30 minutes, 5 days a week. Start slowly, such as walking briskly for 15 minutes, twice a day. Manage stress. Limit alcohol. If you drink, do so in moderation. This means no more than 2 drinks per day for men,and 1 drink per day for women. Do not smoke or use tobacco products. Visit smokefree.gov for tools and tips to quit. DASH 2-day sample menu Day 1 Day 2 Breakfast Breakfast 1 cup bran flakes cereal cup oatmeal 1 medium banana 1 mini 100% whole wheat bagel 1 cup 1% low-fat milk 1 tablespoon peanut butter 1 slice 100% whole wheat bread 1 medium apple or 1 cup other whole fruit 1 teaspoon butter or soft margarine 1 cup 1% low-fat milk cup orange juice or orange segments Lunch Lunch cup chicken salad on 2 slices 100% whole wheat bread Chicken breast sandwich with 3 ounces skinlesschicken breast, 2 slices 100% whole wheat bread, 1 slice low-fat cheddar cheese, 1 large wandy leaf, 2 slices tomato, 1 tablespoon low- fat mayonnaise Salad with cup fresh cucumber slices, cup tomato wedges, 1 tablespoon sunflower seeds, 1 teaspoon Occitan dressing 1 cup cantaloupe chunks cup fruit cocktail Dinner Dinner 3 ounces lean beef with 2 tablespoons fat-free beef gravy 1 cup whole grain spaghetti with cup spaghetti sauce (with no meat and less than 10 grams of sugar per serving), and 3 tablespoons Parmesan cheese 1 cup green beans sauteed in teaspoon olive oil Spinach salad with 1 cup spinach leaves, cup fresh grated carrots, cup sliced mushrooms, 1 tablespoon vinaigrette dressing 1 small baked potato topped with 1 tablespoon sour cream, 1 tablespoon low-fat shredded cheddar cheese, 1 tablespoon chopped scallions cup corn, cooked from frozen 1 small whole wheat roll with 1 teaspoon tub margarine cup fresh or canned pears 1 small apple 1 cup 1% low-fat milk Snack Snack 1/3 cup almonds, unsalted 1/3 cup walnuts, unsalted cup raisins cup applesauce cup low-fat, low-sugar Sami yogurt 1 low-fat mozzarella string cheese 2017October 26, 2018, [facility]. This handout is for informational purposes only. Talk with your doctor or healthcare team if you have any questions about your care. For more health information, call the [employer] for [employer] at 100-575-1066 or email: [email or web address]-[email or web address]. documented in this encounter* Patient Instructions* Lana Lombardi APRN-CNP - 12/14/2019 9:30 AM EDT DASH Diet: Care Instructions Your Care Instructions The DASH diet is an eating plan that can help lower your blood pressure. DASH stands for Dietary Approaches to Stop Hypertension. Hypertension is high blood pressure. The DASH diet focuses on eating foods that are high in calcium, potassium, and magnesium. These nutrients can lower blood pressure. The foods that are highest in these nutrients are fruits, vegetables, low-fat dairy products, nuts, seeds, and legumes. But taking calcium, potassium, and magnesium supplements instead of eating foods that are high in those nutrients does not have the same effect. The DASH diet also includes whole grains, fish, and poultry. The DASH diet is one of several lifestyle changes your doctor may recommend to lower your high blood pressure. Your doctor may also want you to decrease the amount of sodium in your diet. Lowering sodium while following the DASH diet can lower blood pressure even further than just the DASH diet alone. Follow-up care is a serrano part of your treatment and safety. Be sure to make and go to all appointments, and call your doctor if you are having problems. It's also a good idea to know your test resultsand keep a list of the medicines you take. How can you care for yourself at home? Following the DASH diet Eat 4 to 5 servings of fruit each day. A serving is 1 medium-sized piece of fruit, cup chopped or canned fruit, 1/4 cup dried fruit, or 4 ounces ( cup) of fruit juice. Choose fruit more often than fruit juice. Eat 4 to 5 servings of vegetables each day. A serving is 1 cup of lettuce or raw leafy vegetables, cup of chopped or cooked vegetables, or 4 ounces ( cup) of vegetable juice. Choose vegetables more often than vegetable juice. Get 2 to 3 servings of low-fat and fat-free dairy each day. A serving is 8 ounces of milk, 1 cup ofyogurt, or 1 ounces of cheese. Eat 6 to 8 servings of grains each day. A serving is 1 slice of bread, 1 ounce of dry cereal, or cup of cooked rice, pasta, or cooked cereal. Try to choose whole-grain products as much as possible. Limit lean meat, poultry, and fish to 2 servings each day. A serving is 3 ounces, about the size ofa deck of cards. Eat 4 to 5 servings of nuts, seeds, and legumes (cooked dried beans, lentils, and split peas) each week. A serving is 1/3 cup of nuts, 2 tablespoons of seeds, or cup of cooked beans or peas. Limit fats and oils to 2 to 3 servings each day. A serving is 1 teaspoon of vegetable oil or 2 tablespoons of salad dressing. Limit sweets and added sugars to 5 servings or less a week. A serving is 1 tablespoon jelly or jam,cup sorbet, or 1 cup of lemonade. Eat less than 2,300 milligrams (mg) of sodium a day. If you limit your sodium to 1,500 mg a day, you can lower your blood pressure even more. Tips for success Start small. Do not try to make dramatic changes to your diet all at once. You might feel that you are missing out on your favorite foods and then be more likely to not follow the plan. Make small changes, and stick with them. Once those changes become habit, add a few more changes. Try some of the following: ? Make it a goal to eat a fruit or vegetable at every meal and at snacks. This will make it easy toget the recommended amount of fruits and vegetables each day. ? Try yogurt topped with fruit and nuts for a snack or healthy dessert. ? Add lettuce, tomato, cucumber, and onion to sandwiches. ? Combine a ready-made pizza crust with low-fat mozzarella cheese and lots of vegetable toppings. Try using tomatoes, squash, spinach, broccoli, carrots, cauliflower, and onions. ? Have a variety of cut-up vegetables with a low-fat dip as an appetizer instead of chips and dip. ? Sprinkle sunflower seeds or chopped almonds over salads. Or try adding chopped walnuts or almondsto cooked vegetables. ? Try some vegetarian meals using beans and peas. Add garbanzo or kidney beans to salads. Make burritos and tacos with mashed rios beans or black beans. Where can you learn more? Go to http://www.[employer]edu/patiented. Enter H967 in the search box to learn more about 'DASH Diet: Care Instructions.' Interested in seeing a video go to [email or web address].edu/videolibrary to see all video content. Current as of: April 12, 2019 Content Version: 12.5 [employer]. Care instructions adapted under license by your healthcare professional. If you have questions about a medical condition or this instruction, always ask your healthcare professional. [employer] disclaims any warranty or liability for your use of this information. documented in this encounter* Patient Instructions* Lana Lombardi APRN-CNP - 01/25/2019 1:00 PM EDT [facility] [place] [address] or [phone] A script for PAXIL has been sent to your paroxetine Pronunciation: maxim GARCIA a teen Brand: Sendy Waddell, Sendy DAVENPORT, Anupama What is the most important information I should know about paroxetine? You should not use paroxetine if you are also taking pimozide or thioridazine. Do not use paroxetine within 14 days before or 14 days after you have used an MAO inhibitor, such as isocarboxazid, linezolid, methylene blue injection, phenelzine, rasagiline, selegiline, or tranylcypromine. Some young people have thoughts about suicide when first taking an antidepressant. Stay alert to changes in your mood or symptoms. Report any new or worsening symptoms to your doctor Seek medical attention right away if you have symptoms such as: agitation, hallucinations, muscle stiffness, twitching, loss of coordination, dizziness, warmth or tingly feeling, nausea, vomiting, diarrhea, fever, sweating, tremors, racing heartbeats, or a seizure (convulsions). What is paroxetine? Paroxetine is an antidepressant in a group of drugs called selective serotonin reuptake inhibitors (SSRIs). Paroxetine affects chemicals in the brain that may be unbalanced in people with depression,anxiety, or other disorders. Paroxetine is used to treat depression, obsessive-compulsive disorder, anxiety disorders, post-traumatic stress disorder (PTSD), and premenstrual dysphoric disorder (PMDD). The Brisdelle brand of paroxetine is used to treat hot flashes related to menopause. Brisdelle is not for treating any other conditions. Paroxetine may also be used for purposes not listed in this medication guide. What should I discuss with my healthcare provider before taking paroxetine? You should not use this medicine if you are allergic to paroxetine, or if you are also taking pimozide or thioridazine. Do not use an MAO inhibitor within 14 days before or 14 days after you take paroxetine. A dangerousdrug interaction could occur. MAO inhibitors include isocarboxazid, linezolid, phenelzine, rasagiline, selegiline, and tranylcypromine. After you stop taking paroxetine you must wait at least 14 days before you start taking an MAO inhibitor. To make sure paroxetine is safe for you, tell your doctor if you have: heart disease, high blood pressure, history of stroke; liver or kidney disease; a bleeding or blood clotting disorder; seizures or epilepsy; bipolar disorder (manic depression), or a history of drug abuse or suicidal thoughts; narrow-angle glaucoma; or low levels of sodium in your blood. Some young people have thoughts about suicide when first taking an antidepressant. Your doctor should check your progress at regular visits. Your family or other caregivers should also be alert to changes in your mood or symptoms. Taking an paroxetine during may cause serious lung problems, a heart defect, or other complications in the baby. However, you may have a relapse of depression or other treated condition if you stop taking your antidepressant. Tell your doctor right away if you become . Do not start or stop taking this medicine during without your doctor's advice. Do not use Brisdelle if you are . Paroxetine can pass into breast milk and may cause side effects in the nursing baby. You should notbreast-feed while using this medicine. Paroxetine is not approved for use by anyone younger than 18 years old. How should I take paroxetine? Follow all directions on your prescription label. Your doctor may occasionally change your dose. Donot take this medicine in larger or smaller amounts or for longer than recommended. Do not crush, chew, or break an extended-release tablet. Swallow it whole. Shake the oral suspension (liquid) well just before you measure a dose. Measure liquid medicine with the dosing syringe provided, or with a special dose- measuring spoon or medicine cup. If you do nothave a dose-measuring device, ask your pharmacist for one. It may take up to 4 weeks before your symptoms improve. Keep using the medication as directed and tell your doctor if your symptoms do not improve. Do not stop using paroxetine suddenly, or you could have unpleasant withdrawal symptoms. Ask your doctor how to safely stop using paroxetine. Follow your doctor's instructions about tapering your dose. Store at room temperature away from moisture, heat, and light. What happens if I miss a dose? Take the missed dose as soon as you remember. Skip the missed dose if it is almost time for your next scheduled dose. Do not take extra medicine to make up the missed dose. What happens if I overdose? Seek emergency medical attention or call the Poison Help line at . An overdose of paroxetine can be fatal. What should I avoid while taking paroxetine? Drinking alcohol with this medicine can cause side effects. Ask your doctor before taking a nonsteroidal anti-inflammatory drug (NSAID) for pain, arthritis, fever, or swelling. This includes aspirin, ibuprofen (Advil, Motrin), naproxen (Aleve), celecoxib (Celebrex), diclofenac, indomethacin, meloxicam, and others. Using an NSAID with paroxetine may cause you to bruise or bleed easily. Paroxetine may impair your thinking or reactions. Be careful if you drive or do anything that requires you to be alert. What are the possible side effects of paroxetine? Get emergency medical help if you have signs of an allergic reaction: skin rash or hives; difficultbreathing; swelling of your face, lips, tongue, or throat. Report any new or worsening symptoms to your doctor, such as: mood or behavior changes, anxiety, panic attacks, trouble sleeping, or if you feel impulsive, irritable, agitated, hostile, aggressive, restless, hyperactive (mentally or physically), more depressed, or have thoughts about suicide or hurting yourself. Call your doctor at once if you have: racing thoughts, decreased need for sleep, unusual risk-taking behavior, feelings of extreme happiness or sadness, being more talkative than usual; blurred vision, tunnel vision, eye pain or swelling, or seeing halos around lights; unusual bone pain or tenderness, swelling or bruising; changes in weight or appetite; easy bruising, unusual bleeding (nose, mouth, vagina, or rectum), coughing up blood; high levels of serotonin in the body --agitation, hallucinations, fever, fast heart rate, overactive reflexes, nausea, vomiting, diarrhea, loss of coordination, fainting; low levels of sodium in the body --headache, confusion, slurred speech, severe weakness, loss of coordination, feeling unsteady; severe nervous system reaction --very stiff (rigid) muscles, high fever, sweating, confusion, fast or uneven heartbeats, tremors, fainting; or severe skin reaction --fever, sore throat, swelling in your face or tongue, burning in your eyes, skin pain, followed by a red or purple skin rash that spreads (especially in the face or upper body) and causes blistering and peeling. Common side effects may include: vision changes; weakness, drowsiness, dizziness; sweating, anxiety, shaking; sleep problems (insomnia); loss of appetite, constipation; dry mouth, yawning; or decreased sex drive, impotence, or difficulty having an orgasm. This is not a complete list of side effects and others may occur. Call your doctor for medical advice about side effects. You may report side effects to FDA at 3-440-IAW-9308. What other drugs will affect paroxetine? Taking paroxetine with other drugs that make you sleepy can worsen this effect. Ask your doctor before taking a sleeping pill, narcotic medication, muscle relaxer, or medicine for anxiety, depression, or seizures. Tell your doctor about all your current medicines and any you start or stop using, especially: cimetidine (Tagamet), [place]'s wort, tamoxifen, tryptophan (sometimes called L-tryptophan), warfarin (Coumadin, Jantoven); heart rhythm medicine; HIV or AIDS medications; certain medicines to treat narcolepsy or ADHD --amphetamine, atomoxetine, dextroamphetamine, Adderall, Dexedrine, Evekeo, Vyvanse, and others; narcotic pain medicine --fentanyl, tramadol; medicine to treat anxiety, mood disorders, thought disorders, or mental illness --such as buspirone, lithium, other antidepressants, or antipsychotics; migraine headache medicine --sumatriptan, rizatriptan, zolmitriptan, and others; or seizure medicine --phenobarbital, phenytoin. This list is not complete. Other drugs may interact with paroxetine, including prescription and odem-nse-fvdkfsy medicines, vitamins, and herbal products. Not all possible interactions are listed in this medication guide. Where can I get more information? Your pharmacist can provide more information about paroxetine. Remember, keep this and all other medicines out of the reach of children, never share your medicines with others, and use this medication only for the indication prescribed. Every effort has been made to ensure that the information provided by [employer]. ('[employer] is accurate, up-to-date, and complete, but no guarantee is made to that effect. Drug information contained herein may be time sensitive. [employer] information has been compiled for use by healthcare practitioners and consumers in the [place] and therefore [employer] does not warrant that uses outside of the [place] are appropriate, unless specifically indicated otherwise. [facility] drug information does not endorse drugs, diagnose patients or recommend therapy. [facility] drug information isan informational resource designed to assist licensed healthcare practitioners in caring for their p atients and/or to serve consumers viewing this service as a supplement to, and not a substitute for, the expertise, skill, knowledge and judgment of healthcare practitioners. The absence of a warningfor a given drug or drug combination in no way should be construed to indicate that the drug or drug combination is safe, effective or appropriate for any given patient. [facility] does not assume any responsibility for any aspect of healthcare administered with the aid of information [facility] provides. The information contained herein is not intended to cover all possible uses, directions, precautions, warnings, drug interactions, allergic reactions, or adverse effects. If you have questions about the drugs you are taking, check with your doctor, nurse or pharmacist. Copyright 4715-6906 [employer]. Version: 26.01. Revision date: 09/02/2016. Care instructions adapted under license by your healthcare professional. If you have questions about a medical condition or this instruction, always ask your healthcare professional. [employer] disclaims any warranty or liability for your use of this information. documented in this encounter* Patient Instructions* Lana Lombardi APRN-CNP - 03/17/2019 9:00 AM EST Your Paxil dose has been increased to 30 mg, once a day. You may use 1 1/2 tabs of the 20 mg tabs to make the new 30 mg dose. Your new script will be for 30 mg. Please take JUST ONE daily. buspirone Pronunciation: valerie riley Brand: Brandypar What is the most important information I should know about buspirone? Do not use buspirone if you have taken an MAO inhibitor in the past 14 days. A dangerous drug interaction could occur. MAO inhibitors include isocarboxazid, linezolid, methylene blue injection, phenelzine, rasagiline, selegiline, and tranylcypromine. What is buspirone? Buspirone is an anti-anxiety medicine that affects chemicals in the brain that may be unbalanced inpeople with anxiety. Buspirone is used to treat symptoms of anxiety, such as fear, tension, irritability, dizziness, pounding heartbeat, and other physical symptoms. Buspirone is not an anti-psychotic medication and should not be used in place of medication prescribed by your doctor for mental illness. Buspirone may also be used for purposes not listed in this medication guide. What should I discuss with my healthcare provider before taking buspirone? You should not use buspirone if you are allergic to it. Do not use buspirone if you have taken an MAO inhibitor in the past 14 days. A dangerous drug interaction could occur. MAO inhibitors include isocarboxazid, linezolid, methylene blue injection, phenelzine, rasagiline, selegiline, and tranylcypromine. To make sure buspirone is safe for you, tell your doctor if you have any of these conditions: kidney disease; or liver disease. Buspirone is not expected to harm an unborn baby. Tell your doctor if you are or plan to become during treatment. It is not known whether buspirone passes into breast milk or if it could harm a nursing baby. Tell your doctor if you are breast-feeding a baby. Buspirone is not approved for use by anyone younger than 18 years old. How should I take buspirone? Follow all directions on your prescription label. Your doctor may occasionally change your dose to make sure you get the best results. Do not take this medicine in larger or smaller amounts or for longer than recommended. You may take buspirone with or without food but take it the same way each time. Some buspirone tablets are scored so you can break the tablet into 2 or 3 pieces in order to take asmaller amount of the medicine at each dose. Do not use a buspirone tablet if it has not been broken correctly and the piece is too big or too small. Follow your doctor's instructions about how much of the tablet to take. If you have switched to buspirone from another anxiety medication, you may need to slowly decrease your dose of the other medication rather than stopping suddenly. Some anxiety medications can cause withdrawal symptoms when you stop taking them suddenly after long-term use. Buspirone can cause false positive results with certain medical tests. You may need to stop using the medicine for at least 48 hours before your test. Tell any doctor who treats you that you are using buspirone. Store at room temperature away from moisture, heat, and light. What happens if I miss a dose? Take the missed dose as soon as you remember. Skip the missed dose if it is almost time for your next scheduled dose. Do not take extra medicine to make up the missed dose. What happens if I overdose? Seek emergency medical attention or call the Poison Help line at . What should I avoid while taking buspirone? This medication may impair your thinking or reactions. Be careful if you drive or do anything that requires you to be alert. Drinking alcohol may increase certain side effects of buspirone. Grapefruit and grapefruit juice may interact with buspirone and lead to unwanted side effects. Discuss the use of grapefruit products with your doctor. What are the possible side effects of buspirone? Get emergency medical help if you have signs of an allergic reaction: hives; difficult breathing; swelling of your face, lips, tongue, or throat. Call your doctor at once if you have: chest pain; shortness of breath; or a light-headed feeling, like you might pass out. Common side effects may include: headache; dizziness, drowsiness; sleep problems (insomnia); nausea, upset stomach; or feeling nervous or excited. This is not a complete list of side effects and others may occur. Call your doctor for medical advice about side effects. You may report side effects to FDA at 2-291-MZQ-3526. What other drugs will affect buspirone? Taking this medicine with other drugs that make you sleepy or slow your breathing can worsen these effects. Ask your doctor before taking buspirone with a sleeping pill, narcotic pain medicine, muscle relaxer, or medicine for anxiety, depression, or seizures. Other drugs may interact with buspirone, including prescription and pdoc-pui-dzmouts medicines, vitamins, and herbal products. Tell each of your health care providers about all medicines you use now and any medicine you start or stop using. Where can I get more information? Your pharmacist can provide more information about buspirone. Remember, keep this and all other medicines out of the reach of children, never share your medicines with others, and use this medication only for the indication prescribed. Every effort has been made to ensure that the information provided by [employer]. ('[employer]') is accurate, up-to-date, and complete, but no guarantee is made to that effect. Drug information contained herein may be time sensitive. [employer] information has been compiled for use by healthcare practitioners and consumers in the [place] and therefore [employer] does not warrant that uses outside of the [place] are appropriate, unless specifically indicated otherwise. [employer]'s drug information does not endorse drugs, diagnose patients or recommend therapy. [facility] drug information isan informational resource designed to assist licensed healthcare practitioners in caring for their p atients and/or to serve consumers viewing this service as a supplement to, and not a substitute for, the expertise, skill, knowledge and judgment of healthcare practitioners. The absence of a warningfor a given drug or drug combination in no way should be construed to indicate that the drug or drug combination is safe, effective or appropriate for any given patient. [employer] does not assume any responsibility for any aspect of healthcare administered with the aid of information [employer] provides. The information contained herein is not intended to cover all possible uses, directions, precautions, warnings, drug interactions, allergic reactions, or adverse effects. If you have questions about the drugs you are taking, check with your doctor, nurse or pharmacist. Copyright 5162-7730 [employer]. Version: 5.01. Revision date: 04/10/2015. Care instructions adapted under license by your healthcare professional. If you have questions about a medical condition or this instruction, always ask your healthcare professional. [employer] disclaims any warranty or liability for your use of this information. documented in this encounter* Patient Instructions* Maikel Leal MD - 08/04/2020 11:28 AM EDT Problem List Items Addressed This Visit None Visit Diagnoses Well adult health check - Primary Blood pressure should be below 130/80 Please monitor blood pressure at home. Check it a few times a week at different times of the day. Record the results and bring to your next visit. Goal is 130/80 or below; if you are over 60 years old then below 140/90. To check your blood pressure you should be relaxed a sitting with both of your feet flat on the floor, and the blood pressure cuff at the level of your heart. If any referrals were placed at the time of your visit please allow 2 weeks for processing. If you haven't heard from anyone within 2 weeks please contact my office so we can look into the status of your referral. Please answer your phone for the next 2 weeks to receive the call from the doctor we referred you to. Please keep the appointment with your doctor. If you can not make the appointment for some reason please call to cancel and do not just No Show or not show up for the appointment. This makes it hard for us to get you future appointments. Thank you for your cooperation If you were given any labs today please ensure they are completed according to the directions given. Once labs are completed please allow 1-2 weeks for us to receive the results, review them, and letyou know what steps, if any, are needed next. If you haven't heard from us after that please call to inquire. If labs were ordered to be done PRIOR to your next visit we will discuss the results at the time ofyour office visit. If any procedures or imaging studies were ordered that must be prior authorized please give us 2 weeks to get them approved. Once approved someone should call you to schedule them or give you a date and time that they were scheduled for. If you haven't heard anything within 2 weeks of the office visit please call the office so we can look into their status. documented in this encounter History of Present Illness * Yasmin Brown CNP - 10/13/2018 11:13 AM EDT PATIENT NAME: Lele Dacosta [facility] [address] [place] [id number] : 1985 DATE OF VISIT: 10/13/2018 #: [id number] PROVIDER: Yasmin Brown CNP Chief Complaint Patient presents with Foot Pain Right foot burning sensation. Unknown injury. SUBJECTIVE 33 y.o. female presents Foot Pain (Right foot burning sensation. Unknown injury.) Client with pain in her right foot for 2 weeks. States she was running on a treadmill prior to the pain. She has been exercising regularly for 6 months. Yesterday she had worsening of her symptoms (burining pain) in the lateral foot and heel area. Foot Injury The incident occurred more than 1 week ago. The incident occurred at the gym. The injury mechanism is unknown. The pain is present in the right heel and right foot. The quality of the pain is described as burning. The pain has been fluctuating since onset. Pertinent negatives include no inability to bear weight, loss of motion, loss of sensation, numbness or tingling. She reports no foreign bodies present. The symptoms are aggravated by weight bearing. MEDICAL ISSUES Past Medical History: Diagnosis Date Long Q-T syndrome There is no problem list on file for this patient. SOCIAL HISTORY Social History Socioeconomic History Marital status: Spouse name: Not on file Number of children: Not on file Years of education: Not on file Highest education level: Not on file Occupational History Not on file Social Needs Financial resource strain: Not on file Food insecurity: Worry: Not on file Inability: Not on file Transportation needs: Medical: Not on file Non-medical: Not on file Tobacco Use Smoking status: Current Every Day Smoker Packs/day: 1.00 Years: 12.00 Pack years: 12.00 Types: Cigarettes Smokeless tobacco: Never Used Substance and Sexual Activity Alcohol use: Never Frequency: Never Drug use: Never Sexual activity: Not on file Lifestyle Physical activity: Days per week: Not on file Minutes per session: Not on file Stress: Not on file Relationships Social connections: Talks on phone: Not on file Gets together: Not on file Attends anglican service: Not on file Active member of club or organization: Not on file Attends meetings of clubs or organizations: Not on file Relationship status: Not on file Other Topics Concern Not on file Social History Narrative Not on file FAMILY HISTORY No family history on file. REVIEW OF SYSTEMS Review of Systems Skin: Pain and swelling of the right heel and lateral foot. Neurological: Negative for tingling and numbness. MEDICATIONS PRIOR TO VISIT No current outpatient medications on file prior to visit. No current facility-administered medications on file prior to visit. ALLERGIES/INTOLERANCES Allergies Allergen Reactions Ibuprofen GI Intolerance Severe vomiting OBJECTIVE BP (!) 142/89 (BP Location: Left arm, Patient Position: Sitting, BP Cuff Size: X-large Adult) Comment: Rechecked CLG Pulse 84 Temp 98.3 F (36.8 C) (Oral) Resp 18 Ht 5' 3 Wt 115.2 kg (254 lb) LMP 10/06/2018 Comment: LMP end date SpO2 98% BMI 44.99 kg/m Physical Exam Constitutional: She is oriented to person, place, and time. She appears well- developed and well-nourished. Pulmonary/Chest: Effort normal. Musculoskeletal: Tender swelling of the right foot. Tenderness of the lateral heel and dorsal lateral foot. Right ankle measures 11 1/2 inches. Left ankle measures 11 1/2 inches. There is no tenderness of the ankle. Right foot measures 9 3/4 inches and left foot measures 9 1/2 inches around the arch and dorsal foot. Neurological: She is alert and oriented to person, place, and time. Skin: Skin is warm and dry. Psychiatric: She has a normal mood and affect. Nursing note and vitals reviewed. PROCEDURE Procedures Results No results found for this or any previous visit (from the past 168 hour(s)). ASSESSMENT/PLAN (expressed as patient instructions): SNOMED CT(R) 1. Foot pain, right PAIN IN RIGHT FOOT XR Foot Right 3+ Views (Standard) Ambulatory referral to Podiatry 2. Elevated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 3.4 10*3/uL MONOCYTES, ABSOLUTE 0.6 0.0 - 0.7 10*3/uL ABSOLUTE EOSINOPHIL COUNT 0.10 0.0 - 0.7 10*3/uL ABSOLUTE BASOPHIL COUNT 0.1 0.0 - 0.2 10*3/uL Radiographic Imaging CT SPINE THORACIC WITHOUT CONTRAST Final Result IMPRESSION: No acute findings. CT SPINE LUMBAR WITHOUT CONTRAST Final Result IMPRESSION: 1. No acute fracture or dislocation of the lumbar spine is seen. 2. There is mild to moderate right and mild left neural foraminal narrowing at L4-L5 secondary to a diffuse disc bulge. Procedures: Procedures ED Summary/MDM Patient with 3 days of lower back pain and some cramping in her lower legs and numbness. Neurologic exam was normal. There is no saddle anesthesia and no urinary or bowel incontinence. Patient is able to ambulate on her own. There was no history of trauma. CT thoracic and lumbar were negative for any acute findings such as fracture or dislocation. There is a diffuse disc bulge at L5 but this is not acute. Patient given a prescription for Flexeril along with a dose in the ED and a prescription for Lidoderm and discharged home. Clinical Impression: 1. Lumbar disc disease No follow-ups on file. Discharge Medication List as of 12/06/2019 12:05 AM START taking these medications Details cyclobenzaprine 10 MG tablet Take 1 tablet by mouth 3 times daily as needed for Muscle spasms. Print Disp-21 tablet,R-0 lidocaine 5 % Patch patch Place 1 patch on skin every 24 hours. Max of 12 hours of application then remove. Normal Disp-12 patch,R-0 Discharge Medication List as of 12/06/2019 12:05 AM An After Visit Summary was printed and given to the patient with above information. . Surekha Quintanilla MD 12/06/19 0437 documented in this encounter Care Teams (unrecognized sec tion and content) Community Ambassador Relationship Specialty Start Date End Date Maikel Leal MD [address] [place] [address] PCP - General Family Medicine 08/04/20 Love Jimenez, HOTEL CUSTODIAN [address] [place] [address] PCP - JASBIR Attributed Provider - [facility] 01/27/20 04/27/50 Community Ambassador Relationship Specialty Start Date End Date Maikel Leal MD [address] [place] [address] PCP - General Family Medicine 08/04/20 Love Jimenez, HOTEL CUSTODIAN [address] [place] [address] PCP - JASBIR Attributed Provider - [facility] 01/27/20 04/27/50 Community Ambassador Relationship Specialty Start Date End Date Maikel Leal MD [address] [place] [address] PCP - General Family Medicine 08/04/20 Love Jimenez CNP [address] [place] [address] PCP - JASBIR Attributed Provider - [facility] 01/27/20 04/27/50 Elisha Fuentes, RN Patient Navigator Nursing 09/21/21 Community Ambassador Relationship Specialty Start Date End Date Maikel Leal MD [address] [place] [address] PCP - General Family Medicine 08/04/20 Love Jimenez CNP [address] [place] [address] PCP - JASBIR Attributed Provider - [facility] 01/27/20 04/27/50 Elisha Fuentes, RN Patient Navigator Nursing 09/21/21 Community Ambassador Relationship Specialty Start Date End Date Maikel Leal MD [address] [place] [address] PCP - General Family Medicine 08/04/20 Love Jimeenz, DAMARIS [address] [place] [address] PCP - JASBIR Attributed Provider - [facility] 01/27/20 04/27/50 Elisha Fuentes, RN Patient Navigator Nursing 09/21/21 Community Ambassador Relationship Specialty Start Date End Date Maikel Leal MD [address] [place] [address] PCP - General Family Medicine 08/04/20 Love Jimenez, DAMARIS [address] [place] [address] PCP - JASBIR Attributed Provider - [facility] 01/27/20 04/27/50 Community Ambassador Relationship Specialty Start Date End Date Love Jimenez CNP [address] [place] [address] PCP - JASBIR Attributed Provider - [facility] 01/27/20 04/27/50 Love Jimenez CNP [address] [place] [address] PCP - JASBIR Attributed Provider - [facility] 01/27/20 04/27/50 Ariana Garza PA-C [address] [place] [address] PCP - General Physician [place] Kura [place] 02/05/22 Community Ambassador Relationship Specialty Start Date End Date Love Jimenez, HOTEL CUSTODIAN [address] [place] [address] PCP - JASBIR Attributed Provider - [facility] 01/27/20 04/27/50 Love Jimenez, HOTEL CUSTODIAN [address] [place] [address] PCP - JASBIR Attributed Provider - [facility] 01/27/20 04/27/50 Ariana Garza PA-C [address] [place] [address] PCP - General Physician [place] Kura [place] 02/05/22 Community Ambassador Relationship Specialty Start Date End Date Ariana Garza PA-C [address] [place] [address] PCP - General Physician [place] 02/05/22 Community Ambassador Relationship Specialty Start Date End Date Ariana Garza PA-C [address] [place] [address] PCP - General Physician [place] K[place] 02/05/22 Community Ambassador Relationship Specialty Start Date End Date Ariana Garza PA-C [address] [place] [address] PCP - General Physician [place] Kura [place] 02/05/22 Community Ambassador Relationship Specialty Start Date End Date Ariana Garza PA-C [address] [place] [address] PCP - General Physician [place] K[place] 02/05/22 Community Ambassador Relationship Specialty Start Date End Date Ariana Garza PA-C [address] [place] [address] PCP - General Physician [place] Kura [place] 02/05/22 Community Ambassador Relationship Specialty Start Date End Date Ariana Garza PA-C [address] [place] [address] PCP - General Physician [place] K[place] 02/05/22 Community Ambassador Relationship Specialty Start Date End Date Ariana Garza PA-C [address] [place] [address] PCP - General Physician [place] K[place] 02/05/22 Community Ambassador Relationship Specialty Start Date End Date Ariana Garza PA-C [address] [place] [address] PCP - General Physician [place] K[place] 02/05/22 Klaudia Marley, RN Registered Nurse Nursing 06/18/23 Community Ambassador Relationship Specialty Start Date End Date Ariana Garza PA-C [address] [place] [address] PCP - General Physician [place] 02/05/22 Klaudia Marley, RN Registered Nurse Nursing 06/18/23 Community Ambassador Relationship Specialty Start Date End Date Ariana Garza PA-C [address] [place] [address] PCP - General Physician [place] K[place] 02/05/22 Community Ambassador Relationship Specialty Start Date End Date Ariana Garza PA-C [address] [place] [address] PCP - General Physician [place] K[place] 02/05/22 Community Ambassador Relationship Specialty Start Date End Date Ariana Garza PA-C [address] [place] [address] PCP - General Physician [place] Kura [place] 02/05/22 Community Ambassador Relationship Specialty Start Date End Date Love Jimenez CNP [address] [place] [address] PCP - JASBIR Attributed Provider - [facility] 01/27/20 04/27/50 Ariana Garza PA-C [address] [place] [address] PCP - General Physician [place] Kura [place] 02/05/22 Community Ambassador Relationship Specialty Start Date End Date Love Jimenez CNP [address] [place] [address] PCP - JASBIR Attributed Provider - [facility] 01/27/20 04/27/50 Ariana Garza PA-C [address] [place] [address] PCP - General Physician [place] Kura [place] 02/05/22 Community Ambassador Relationship Specialty Start Date End Date Love Jimenez CNP [address] [place] [address] PCP - JASBIR Attributed Provider - [facility] 01/27/20 04/27/50 Ariana Garza PA-C [address] [facility] [place] [address] PCP - General Physician Ka[place]ina Kura [place] 02/05/22 FOR RECORDS PERTAINING TO PATIENTS WHO ARE OR HAVE BEEN ENROLLED IN A CHEMICAL DEPENDENCY/SUBSTANCEABUSE PROGRAM, SOME INFORMATION MAY BE OMITTED. This clinical summary was aggregated from multiple sources. Caution should be exercised in using it in the provision of clinical care. This summary normalizes information from multiple sources, and as a consequence, information in this document may materially change the coding, format and clinical context of patient data. In addition, data may be omitted in some cases. CLINICAL DECISIONS SHOULD BE BASED ON THE PRIMARY CLINICAL RECORDS. [facility] [employer] [facility]. provides no warranty or guarantee of the accuracy or completeness of information in this document.
== END 2023-12-22 21:32 | disposition home or self-care (01) ==
LOC: LAB 21:31
PROVIDERS: Visit Provider Obstetrics & Gynecology
DX: N64.52 Nipple discharge (principal)
CPT/HCPCS: 87070; 87186

== ENCOUNTER 2024-01-20 19:21 | Outpatient (REF) | payer BC, SELFPAY ==
--- OUTSIDE RECORDS SUMMARY | 2024-01-20 19:25 | XMS_ITS | CCD ---
Author Organization [facility] Care Team Providers Care Well Logger Name Role Phone Jose Manuel Falcon Unavailable No, Physician Primary Care Provider Unavailabl e NO, PHYSICIAN Primary Care Unavailable YASMIN BROWN Attending Unavail able YASMIN BROWN Admitting Unavail able YASMIN BROWN Referring Unavail able NO, PHYSICIAN Primary Care Unavailable Lana Lombardi Primary Care Provider Maikel Leal Primary Care Provider ROXIE HUSSEIN Attending Unavailabl e MAIKEL LEAL Primary Care Unavailable GUSTAVO, PHYSICIAN Primary Care Unavailable SAMUEL MONTERO Attending Unavail able Maikel Leal MD Primary Care Provider Love Jimenez CNP Unavailable Maikel Leal MD Primary Care Provider [phone] Love Jimenez CNP Unavailable Elisha Fuentes RN Unavailable Unavailable Barbara OCAMPO, Love Garcia Unavailable [phone] Ariana Garza PA-C Primary Care Provide r Love Jimenez CNP Unavailable Love Jimenez CNP Unavailable [phone] Ariana Garza PA-C Primary Care Provide r Ariana Garza PA-C Primary Care Provide r Klaudia Marley RN Unavailable Unavailable CATRACHITO CUBA Referring Unavailab ARIANA Jose Primary Care Unavailab le CONNIFF, ARIANA REYES Attending Unavailab le CONNIFF, ARIANA REYES Primary Care Unavailab le CONNIFF, ARIANA REYES Attending Unavailab le VENKATESH III, ASHLEY FOWLER Referring Unav ailable VENKATESH III, ASHLEY FOWLER Referring Unav ailable CONNIFF, ARIANA REYES Primary Care Unavailab le CONNIFF, ARIANA REYES Attending Unavailab marixa Love Jimenez CNP Unavailable CONNIFF, ARIANA REYES Primary Care Unavailab le VENKATESH III, ASHLEY FOWLER Attending Unav ailable VENKATESH III, ASHLEY FOWLER Referring Unav ailable CONNIFF, ARIANA REYES Primary Care Unavailab le CONNIFF, ARIANA REYES Primary Care Unavailab le KUMPF II, TRACY VALLES Attending Unavailable KUMPF II, TRACY VALLES Referring Unavailable CONNIFF, ARIANA REYES Primary Care Unavailab le CONNIFF, ARIANA REYES Referring Unavailab le CONNIFF, ARIANA REYES Primary Care Unavailab le CONNIFF, ARIANA REYES Attending Unavailab le CONNIFF, ARIANA REYES Primary Care Unavailab le CONNIFF, ARIANA REYES Attending Unavailab le CONNIFF, ARIANA REYES Referring Unavailab le KUMPF II, TRACY VALLES Attending Unavailable CONNIFF, ARIANA REYES Primary Care Unavailab le CONIGYNICOLE Attending Unavailable CONNIFF, ARIANA REYES Primary Care Unavailab le CONNIFF, ARIANA REYES Referring Unavailab le CONNIFF, ARIANA REYES Admitting Unavailab le CONNIFF, ARIANA REYES Primary Care Unavailab le KUMPF II, TRACY VALLES Attending Unavailable CONNIFF, ARIANA REYES Primary Care Unavailab le KUMPF II, TRACY VALLES Attending Unavailable CONNIFF, ARIANA REYES Referring Unavailab le CONNIFF, ARIANA RYEES Primary Care Unavailab le KUMPF II, TRACY VALLES Attending Unavailable CONNIFF, ARIANA REYES Primary Care Unavailab le CONNIFF, ARIANA REYES Attending Unavailab le CONNIFF, ARIANA REYES Primary Care Unavailab le CONNIFF, ARIANA REYES Attending Unavailab le CONNIFF, ARIANA REYES Primary Care Unavailab le CONNIFF, ARIANA REYES Attending Unavailab marixa RIDDLE IIIASHLEY Attending Unav ailable KAYLA, ARIANA REYES Primary Care Unavailab marixa GARZA, ARIANA REYES Referring Unavailab le KAYLA, ARIANA REYES Attending Unavailab le BRYCEIFF, ARIANA REYES Primary Care Unavailab le HÉCTORLAMONTY Attending Unavailable HAWK ANAYA Attending Unavailable Héctor DO, Hawk R Unavailable Alyssa Pablo CNP Unavailable Sasha Alcala Attending Unavailable Hawk Anaya Referring Unavailable KAYLA, ARIANA REYES Primary Care Unavailab ALYSSA De La Torre Attending Unavailable Allergies Allergy Classification Reported Allergen(s) Allergy Type Date of Onset Reaction(s) Facility NSAIDs (1 source) Ibuprofen Drug Allergy 9 GI Intolerance [facility] (20 sources) Ibuprofen; Translations: [Unknown] Drug Allergy 8 Nausea and Vomiting, GI Intolerance [facility] Work Phone: (20 sources) bee venom Propensity to adverse reactions to drug 9 Anaphylaxis [facility] (5 sources) BEE VENOM PROTEIN (HONEY BEE); Translations: [BEE VENOM PROTEIN (HONEY BEE)] Propensity to adverse reactions to drug (disorder) 9 [facility] (1 source) Ibuprofen Drug Allergy 4 [facility] Medications Current Medications Medication Drug Class(es) [...] Start: 01-23-2023 take 1 tablet by rolly th three times daily as needed baclofen 5 mg Tab Indications: Multiple joint complaints Take 1 (one) tablet (5 mg total) by mouth 3 (three) times a day as needed . 90 tablet 0 01/23/2023 Active blood-glucose sensor (FreeSt yle Andrew 3 Sensor) [facility] (17 sources) Start: 08-19-2023 blood-glucose sensor (FreeStyle Andrew 3 Sensor) Malia Indications: Prediabetes For continuous glucose monitoring. Change every 14 days . 2 each 1 08/19/2023 Active Start: 04-25-2023 End: 08-19-2023 blood-glucose sensor (FreeSt yle Andrew 3 Sensor) Malia Indications: Prediabetes For continuous glucose monitoring. Change every 14 days . 2 each 2 04/25/2023 08/19/2023 Discontinued (Reorder (Suppress CancelRx Message to Pharmacy)) Start: 04-25-2023 blood-glucose sensor (FreeStyle Andrew 3 Sensor) Malia Indications: Prediabetes For continuous glucose monitoring. Change [...] Active doxycycline hyclate 100 mg oral tablet (9 sources) Tetracycline-class Drug Start: 08-19-2023 take 1 tablet by mouth twice daily doxycycline hyclate (VIBRA-TABS) 100 MG tablet Indications: Mastitis Take 1 (one) tablet (100 mg total) by mouth 2 (two) times a day . 14 tablet 08/19/2023 Active 24 hr metFORMIN hydrochloride 500 mg extended release oral tablet (20 sources) Biguanide Start: 01-23-2023 End: 01-23-2024 take 1 tablet by mouth once daily at breakfast metFORMIN (GLUCOPHAGE-XR) 500 MG 24 hr tablet Indications: Prediabetes Take 1 (one) tablet (500 mg total) by mouth daily with breakfast . 90 tablet 1 08/19/2023 Active metroNIDAZOLE 500 mg oral tablet (2 sources) Nitroimidazole Antimicrobial Start: 01-12-2024 End: 01-22-2024 take 1 tablet by mouth three times daily at mealtime metroNIDAZOLE (FLAGYL) 500 MG tablet Take 1 (one) tablet (500 mg total) by mouth 3 (three) times a day with meals for 10 days . 30 tablet 01/12/2024 01/22/2024 Active multivitamin (THERAGRAN) per tablet (20 sources) [...] 30 tablet 1 01/25/2019 03/17/2019 Discontinued (Reorder) sulfamethoxazole 800 mg / trimethoprim 160 mg oral tablet (2 sources) Dihydrofolate Reductase Inhibitor Antibacterial, Sulfonamide Antimicrobial Start: 01-12-2024 End: 01-22-2024 take 1 tablet by mouth twice daily sulfamethoxazole-trimethoprim (BACTRIM DS,SEPTRA DS) 800-160 mg per tablet Take 1 (one) tablet by mouth 2 (two) times a day for 10 days . 20 tablet 01/12/2024 01/22/2024 Active Completed/Discontinued Medications Medication Drug Class(es) Dates Sig (Normalized) Sig (Original) acetaminophen 325 mg / HYDROcodone bitartrate 5 mg oral tablet (1 source) Opioid Agonist Start: 03-19-2018 End: 03-18-2018 hydroCODone-acetam inophen (NORCO) 5-325 MG per tablet 1 Each Start: 03-19-2018 End: 03-18-2018 hydroCODone-acetaminophen (N ORCO) 5-325 MG per tablet 1 Each blood-glucose sensor (Dexcom G7 Sensor) Malia (8 sources) Start: 04-25-2023 End: 08-19-2023 blood-glucose sensor (Dexcom G7 Sensor) Malia Indications: Prediabetes For continuous glucose monitoring. Change every 10 days . 3 each 2 04/25/2023 08/19/2023 Discontinued (Patient's Request) Start: 04-25-2023 blood-glucose sensor (Dexcom G7 Sensor) Malia Indications: Prediabetes For continuous glucose monitoring. Change [...] / neomycin 3.5 mg/ml / polymyxin b 18861 unt/ml ophthalmic suspension (1 source) Aminoglycoside Antibacterial, Polymyxin-class Antibacterial, Corticosteroid Start: 05-07-2019 End: 06-10-2019 take 1 drop(s) into the eye(s) every four hours smpqmtry-uxvicnung-lhfzerkvtqlwz 3.5-41750-1.[address] 1 drop in both eyes every 4 hours while awake. 5 mL 0 05/07/2019 06/10/2019 Discontinued 30 ml EPINEPHrine 0.005 mg/ml / lidocaine hydrochloride 10 mg/ml injection (1 source) Antiarrhythmic, alpha-Adrenergic Agonist, beta-Adrenergic Agonist, Catecholamine, Amide Local Anesthetic Start: 03-18-2018 End: 03-18-2018 lidocaine-epinephrine 1%-1:2 42780 injection SOLN 10 mL Start: 03-18-2018 End: 03-18-2018 lidocaine-epinephrine 1%-1:2 95299 injection SOLN 10 mL lidocaine 0.05 mg/mg [...] Translations: [Tobacco use] Chronic Residual codes; unclassified (4 sources) Family history of breast cancer; Translations: [...] Unclassified (1 source) Paronychia of right thumb Unclassified (1 source) Initial Visit (Intake) Onset: 01-12-2024 Results Test Name Value Interpretation Reference Range Facility BODY FLUID AEROBIC CULTUREon 01-12-2024 BODY FLUID AEROBIC CULTURE AEROBIC CULTURE No Growth after 5 days GRAM STAIN RESULT WBC This is a corrected result. Previous result was Many WBC No Organisms Seen Normal [facility] Comment on above: Performed By: #### [id number] #### [facility] [address] [address] Javier Santana M.D. [id number] Plastic Surgery Visit Report on 12-31-2023 Plastic Surgery Visit Report [facility] [address], [address] [place], [place] [id number] OFFICE VISIT Date of Service: 12/31/23 MR#: [id number] Acct: [id number] Name: LELE LEON Rep #: [id number] : 1985 Provider: Dr. Sasha abdi MD Age/Sex: 38/F Location: [facility] [place] Status: Signed Intake Vital Signs 12/31/23 11:04 Height 5 ft 2 in Weight: 296 lb 4 oz BMI 54.1 BP 123/86 H Blood Pressure Location Rt brachial Position Sitting Respiration 16 Pulse 82 Temp 98.2 F Temp Source Oral Pulse Oximetry (%) 96 Intake Visit Reasons: Breast Reduction Chief Complaint: breast reduction consult Accompanied by: fiance Is patient in pain?: Yes (07/05 breast) Allergies ibuprofen (From NeoProfen (ibuprofen lysn)(PF)) Allergy (Mild, Verified 12/31/23 11:02) Vomiting Medications ???Medication ???Instructions ???Recorded ???Confirmed ???Type metformin 500 mg tablet,extended 500 mg PO QDAY 12/31/23 12/31/23 History release 24 hr metronidazole 375 mg capsule 375 mg PO BID 12/31/23 12/31/23 History (Flagyl) Is last menstrual period known: Yes Last menstrual period: 12/19/23 Have you fallen in the past year?: No Nurse's Note: pt here for breast reduction consult due to cyst in breast, painful PFSH Medical History (Updated 12/31/23 @ 12:[address] Sasha Alcala MD) History of mastitis Family history of long QT syndrome History of cyst of breast History of back problems Surgical History (Updated 12/31/23 @ 10:49 by Sally Freitas) History of D C History of right breast biopsy Family History (Updated 12/31/23 @ 10:59 by Sally Freitas) Mother Breast cancer Anxiety Hypertension High cholesterol Depression Blood clot in leg Father Anxiety Heart disease Respiratory disease Seizures Epilepsy Sister Asthma Brother Asthma Alcoholism Social History (Updated 12/31/23 @ 11:01 by Sally Freitas) Smoking Status: Current every day smoker how long ago did patient quit smokin/2- 1 pack alcohol intake: never substance use type: does not use additional social history: denies vaping, denies edibles, denies marijuana, denies aspirin allergy to ibuprofen Female Reproductive History Menstrual Date of last menstrual period: 12/19/23 HPI Breast Reduction Details: Lele is a 38-year-old female patient who presents with a year-long history of a cyst of the right breast which has periodically drained and become tender. This has primarily drained through her nipple but has drained through the skin on 1 instance. She demonstrates a photo of the drainage which has a murky mucinous appearance along with bloody drainage. She has had several studies of the area including a mammogram, ultrasound, and MRI. She has been diagnosed with mastitis as a result of the studies. She was initially being managed by general surgery who subsequently referred her to their in-house plastic surgeon at [place]. She underwent a needle biopsy of the site in the past which was cultured and she was treated with several rounds of antibiotics. She states she had another ultrasound in September because the site was worsening again. Her family history is significant for her mother dying of inflammatory breast cancer at age 63. There never was a BRCA test performed to determine genetic predisposition. She does admit to smoking 1/2 pack/day but denies marijuana use. ROS General General: Yes good health and fatigue; No fever(s) or weight loss HENMT HENMT: No rhinitis, sore throat/mouth sore, nasal congestion, contacts or glaucoma Endo Endocrine: Yes polydipsia; No thyroid disease, heat intolerance, cold intolerance, hepatitis or excessive urine Skin Skin: No Bleeding, bruising, changing moles or suspicious lesion Musc Musculoskeletal: Yes back pain; No joint pain, joint stiffness, muscle weakness, osteoarthritis or Muscle aches/ myalgia Neuro Neurological: No headache(s), No lightheadedness and No numbness Cardio Cardiovascular: Yes fatigue; No chest pain, pacemaker or shortness of breat with exertion Psych Psychiatric: No depression, claustrophobia or anxiety Resp Respiratory: No spitting up, shortness of breath, sleep apnea, asthma, emphysema, TB, Cough or Smoker Gastro Gastrointestinal: No diarrhea, constipation, blood in stool, nausea, vomiting or abdominal bloating John Hematologic: No anemia, No bleeding and No abnormal bleeding Genitourinary: Yes urinary frequency and incontinence; No blood in urine Exam Details The patient has an inflamed firm palpable ill-defined mass at the 1 o'clock position of the right areola. There is currently no drainage. It is tender to touch. There are no other palpable masses or axillary adenopathy. I had (more content not included)... Normal [facility] CBC WITH AUTO DIFFERENTIALon 10-17-2023 AUTO NRBC 0.0 % Normal [facility] Comment on above: Performed By: #### L [id number] #### [facility] [address] [address] Tenisha Vizcarra M.D. [id number] AUTO NRBC ABS COUNT 0.00 K/mcL Normal 0.00-0.00 [facility] Comment on above: Performed By: #### L [id number] #### [facility] [address] [address] Tenisha Vizcarra M.D. [id number] BASOPHILS ABSOLUTE COUNT 0.04 K/mcL Normal 0.00-0.30 [facility] Comment on above: Performed By: #### L [id number] #### [facility] [address] [address] Tenisha Vizcarra M.D. [id number] Basophils/100 WBC (Bld) 0.5 % Normal [facility] Comment on above: Performed By: #### L [id number] #### [facility] [address] [address] Tenisha Vizcarra M.D. [id number] Eosinophils (Bld) [#/Vol] 0.14 10*3/uL Normal 0.00-0.50 [facility] Comment on above: Performed By: #### L [id number] #### [facility] [address] [address] Tenisha Vizcarra M.D. [id number] Eosinophils/100 WBC (Bld) 1.7 % [facility] Comment on above: Performed By: #### L [id number] #### [facility] [address] [address] Tenisha Vizcarra M.D. [id number] Erythrocyte distribution width (RBC) [Ratio] 14.2 % Normal 11.6-14.8 [facility] Comment on above: Performed By: #### L [id number] #### [facility] [place] [place] [facility] [address] [address] Tenisha Vizcarra M.D. [id number] Hematocrit (Bld) [Volume fraction] 40.2 % Normal 36.0-46.0 [facility] Comment on above: Performed By: #### L [id number] #### [facility] [place] [place] [facility] [address] [place] [address] Tenisha Vizcarra M.D. [id number] Hemoglobin (Bld) [Mass/Vol] 13.2 g/dL Normal 12.0-16.0 [facility] Comment on above: Performed By: #### L [id number] #### [facility] [place] [place] [facility] [address] [place] [address] Tenisha Vizcarra M.D. [id number] IG ABSOLUTE 0.03 K/mcL Normal 0.00-0.30 [facility] Comment on above: Performed By: #### L [id number] #### [facility] [place] [place] [facility] [address] [place] [address] Tenisha Vizcarra M.D. [id number] IG PERCENT 0.40 % Normal [facility] Comment on above: Result Comment: The IG parameter is the percentage of metamyelocytes, myelocytes and promyelocytes. An immature granulocyte count (IG) of 1% or more suggests the possibility of infection, an IG count of 3% is very likely related to an infection. Performed By: #### L [id number] #### [facility] [place] [place] [facility] [address] [place] [address] Tenisha Vizcarra M.D. [id number] Lymphocytes (Bld) [#/Vol] 2.38 10*3/uL Normal 0.90-4.00 [facility] Comment on above: Performed By: #### L [id number] #### [facility] [place] [place] [facility] [address] [place], [place] [id number] Tenisha Vizcarra M.D. [id number] Lymphocytes/100 WBC (Bld) 29.5 % Normal [facility] Comment on above: Performed By: #### L [id number] #### [facility] [address] [place], [place] [address] Tenisha Vizcarra M.D. [id number] MCH (RBC) [Entitic mass] 29.6 pg Normal 26.0-34.0 [facility] Comment on above: Performed By: #### L [id number] #### [facility] [address] [address] Tenisha Vizcarra M.D. [id number] MCV (RBC) [Entitic vol] 90.1 fL Normal 80.0-100.0 [facility] Comment on above: Performed By: #### L [id number] #### [facility] [address] [address] Tenisha Vizcarra M.D. [id number] MEAN CORPUSCULAR HEMOGLOBIN CONC 32.8 g/dL Normal 31.0-37.0 [facility] Comment on above: Performed By: #### L [id number] #### [facility] [address] [address] Tenisha Vizcarra M.D. [id number] Monocytes (Bld) [#/Vol] 0.57 10*3/uL Normal 0.30-0.90 [facility] Comment on above: Performed By: #### L [id number] #### [facility] [address] [address] Tenisha Vizcarra M.D. [id number] Monocytes/100 WBC (Bld) 7.1 % Normal [facility] Comment on above: Performed By: #### L [id number] #### [facility] [address] [address] Tenisha Vizcarra M.D. [id number] NEUTROPHILS ABSOLUTE COUNT 4.91 K/mcL Normal 1.70-7.00 [facility] Comment on above: Performed By: #### L [id number] #### [facility] [address] [address] Tenisha Vizcarra M.D. [id number] Neutrophils/100 WBC (Bld) 60.8 % Normal [facility] Comment on above: Performed By: #### L [id number] #### [facility] [address] [place], [place] [address] Tenisha Vizcarra M.D. [id number] Platelet mean volume (Bld) [Entitic vol] 10.6 fL Normal 9.4-12.4 [facility] Comment on above: Performed By: #### L [id number] #### [facility] [address] [place], [place] [address] Tenisha Vizcarra M.D. [id number] Platelets (Bld) [#/Vol] 371 10*3/uL Normal 150-400 [facility] Comment on above: Performed By: #### L [id number] #### [facility] [place] [place] [facility] [address] [place], [place] [address] Tenisha Vizcarra M.D. [id number] RBC (Bld) [#/Vol] 4.46 10*6/uL Normal 4.00-5.20 [facility] Comment on above: Performed By: #### L [id number] #### [facility] [place] [place] [facility] [address] [place], [place] [address] Tenisha Vizcarra M.D. [id number] WBC (Bld) [#/Vol] 8.07 10*3/uL Normal 4.50-11.00 [facility] Comment on above: Performed By: #### L [id number] #### [facility] [place] [place] [facility] [address] [place], [place] [address] Tenisha Vizcarra M.D. [id number] COMPREHENSIVE METABOLIC PANE [place] 10-17-2023 Albumin [Mass/Vol] 3.8 g/dL Normal 3.2-5.2 [facility] Comment on above: Order Comment: [facility] has implemented the eGFR calculation approach that does not have a coefficient for race that conforms to the NKF-ASN Task Force Recommendations. Performed By: #### [id number] #### [facility] [address] [place], [place] [address]Trish Vizcarra M.D. [id number] ALP [Catalytic activity/Vol] 81 U/L Normal 40-140 [facility] Comment on above: Order Comment: [facility] has implemented the eGFR calculation approach that does not have a coefficient for race that conforms to the NKF-ASN Task Force Recommendations. Performed By: #### [id number] #### [facility] [address] [place], [place] [address] Tenisha Vizcarra M.D. [id number] ALT [Catalytic activity/Vol] 15 U/L Normal 0-35 U/L [facility] Comment on above: Order Comment: [facility] has implemented the eGFR calculation approach that does not have a coefficient for race that conforms to the NKF-ASN Task Force Recommendations. Performed By: #### [id number] #### [facility] [place] [place] [facility] [address] [place], [place] [address] Tenisha Vizcarra M.D. [id number] Anion gap [Moles/Vol] 12 mmol/L Normal 10-20 [facility] Comment on above: Order Comment: [facility] has implemented the eGFR calculation approach that does not have a coefficient for race that conforms to the NKF-ASN Task Force Recommendations. Performed By: #### [id number] #### [facility] [place] [place] [facility] [address] [place], [place] [address] Tenisha Vizcarra M.D. [id number] AST [Catalytic activity/Vol] 16 U/L Normal 0-35 U/L [facility] Comment on above: Order Comment: [facility] has implemented the eGFR calculation approach that does not have a coefficient for race that conforms to the NKF-ASN Task Force Recommendations. Performed By: #### [id number] #### [facility] [place] [place] [facility] [address] [place], [place] [address] Tenisha Vizcarra M.D. [id number] Bilirubin [Mass/Vol] 0.3 mg/dL Normal 0.0-1.3 [facility] Comment on above: Order Comment: [facility] has implemented the eGFR calculation approach that does not have a coefficient for race that conforms to the NKF-ASN Task Force Recommendations. Performed By: #### [id number] #### [facility] [place] [place] [facility] [address] [place], [place] [address] Tenisha Vizcarra M.D. [id number] Calcium [Mass/Vol] 9.2 mg/dL Normal 8.4-10.2 [facility] Comment on above: Order Comment: [facility] has implemented the eGFR calculation approach that does not have a coefficient for race that conforms to the NKF-ASN Task Force Recommendations. Performed By: #### [id number] #### [facility] [place] [place] [facility] [address] [place], [place] [address] Tenisha Vizcarra M.D. [id number] Chloride [Moles/Vol] 105 mmol/L Normal 98-108 [facility] Comment on above: Order Comment: [facility] has implemented the eGFR calculation approach that does not have a coefficient for race that conforms to the NKF-ASN Task Force Recommendations. Performed By: #### [id number] #### [facility] [place] [place] [facility] [address] [place], [place] [address] Tenisha Vizcarra M.D. [id number] Creatinine [Mass/Vol] 0.66 mg/dL Normal 0.40-1.10 [facility] Comment on above: Order Comment: [facility] has implemented the eGFR calculation approach that does not have a coefficient for race that conforms to the NKF-ASN Task Force Recommendations. Performed By: #### [id number] #### [facility] [place] [place] [facility] [address] [place], [place] [address] Tenisha Vizcarra M.D. [id number] EGFR 116 mL/min/1.73 m2 Normal >=60 [facility] Comment on above: Order Comment: [facility] has implemented the eGFR calculation approach that does not have a coefficient for race that conforms to the NKF-ASN Task Force Recommendations. Result Comment: Coco mated GFR was calculated using the 2020 CKD-EPI creatinine equation. Performed By: #### [id number] #### [facility] [address] [place], [place] [address] Tenisha Vizcarra M.D. [id number] Glucose [Mass/Vol] 115 mg/dL High 65-99 [facility] Comment on above: Order Comment: [facility] has implemented the eGFR calculation approach that does not have a coefficient for race that conforms to the NKF-ASN Task Force Recommendations. Performed By: #### [id number] #### [facility] [place] [place] [facility] [address] [place], [place] [address] Tenisha Vizcarra M.D. [id number] HCO3 (Bld) [Moles/Vol] 24 mmol/L Normal 21-32 [facility] Comment on above: Order Comment: [facility] has implemented the eGFR calculation approach that does not have a coefficient for race that conforms to the NKF-ASN Task Force Recommendations. Performed By: #### [id number] #### [facility] [place] [place] [facility] [address] [place], [place] [address] Tenisha Vizcarra M.D. [id number] Potassium [Moles/Vol] 3.7 mmol/L Normal 3.5-5.1 [facility] Comment on above: Order Comment: [facility] has implemented the eGFR calculation approach that does not have a coefficient for race that conforms to the NKF-ASN Task Force Recommendations. Performed By: #### 4 [id number] #### [facility] [place] [place] [facility] [address] [place], [place] [address] Tenisha Vizcarra M.D. [id number] Protein [Mass/Vol] 7.2 g/dL Normal 6.0-8.0 [facility] Comment on above: Order Comment: [facility] has implemented the eGFR calculation approach that does not have a coefficient for race that conforms to the NKF-ASN Task Force Recommendations. Performed By: #### 4 [id number] #### [facility] [address] [place], [place] [address] Tenisha Vizcarra M.D. [id number] Sodium [Moles/Vol] 137 mmol/L Normal 135-145 [facility] Comment on above: Order Comment: [facility] has implemented the eGFR calculation approach that does not have a coefficient for race that conforms to the NKF-ASN Task Force Recommendations. Performed By: #### 4 [id number] #### [facility] [address] [place], [place] [address] Tenisha Vizcarra M.D. [id number] Urea nitrogen [Mass/Vol] 12 mg/dL Normal 8-25 [facility] Comment on above: Order Comment: [facility] has implemented the eGFR calculation approach that does not have a coefficient for race that conforms to the NKF-ASN Task Force Recommendations. Performed By: #### 4 [id number] #### [facility] [address] [place], [place] [address] Tenisha Vizcarra M.D. [id number] Urea nitrogen/Creatinine [Mass ratio] 18.2 mg/mg Normal 10.0-20.0 [facility] Comment on above: Order Comment: [facility] has implemented the eGFR calculation approach that does not have a coefficient for race that conforms to the NKF-ASN Task Force Recommendations. Performed By: #### 4 [id number] #### [facility] [address] [place], [place] [address] Tenisha Vizcarra M.D. [id number] HEMOGLOBIN A1Con 10-17-2023 Glucose [Mass/Vol] 126 mg/dL High 74-114 [facility] Comment on above: Performed By: #### 4 8202 #### [facility] [address] [place], [place] [address] Tenisha Vizcarra M.D. [id number] HbA1c (Bld) [Mass fraction] 6.0 % High 4.2-5.6 [facility] Comment on above: Performed By: #### 4 8202 #### [facility] [address] [place], [place] [address] Tenisha iVzcarra M.D. [id number] LIPID PANELon 10-17-2023 Cholesterol [Mass/Vol] 150 mg/dL Normal 100-199 [facility] Comment on above: Performed By: #### 4 [id number] #### [facility] [address] [place], [place] [address] Tenisha Vizcarra M.D. [id number] Cholesterol in HDL [Mass/Vol] 37 mg/dL Low 40-59 [facility] Comment on above: Performed By: #### 4 [id number] #### [facility] [address] [place], [place] [address] Tenisha Vizcarar M.D. [id number] Cholesterol.total/Ch olesterol in HDL [Mass ratio] 4.1 {ratio} Normal [facility] Comment on above: Result Comment: Ace le Cholesterol/HDL Ratio: Average risk: 4.4 1/2 average risk: 3.3 2 x average risk: 7.1 Performed By: #### 4 [id number] #### [facility] [address] [place], [place] [address] Tenisha Vizcarra M.D. [id number] LDL CHOLESTEROL CALCULATED 102 mg/dL Normal 10-130 [facility] Comment on above: Result Comment: [facility] Cholesterol Education Program Guidelines: LDL Cholesterol Optimal: <100 mg/dL Near Optimal/above Optimal: 100-129 mg/dL Borderline High: 130-159 mg/dL High: 160-189 mg/dL Very High: greater than or equal to 190 mg/dL Performed By: #### 4 [id number] #### [facility] [address] [place], [place] [address] Tenisha Vizcarra M.D. [id number] NON HDL CHOL 113 mg/dL Normal [facility] Comment on above: Result Comment: [facility] Cholesterol Education Program Guidelines: NON HDL Cholesterol Desirable: <130 mg/dL Borderline High: 130-159 mg/dL High: 160-189 mg/dL Very High: > or = 190 mg/dL Performed By: #### 4 [id number] #### [facility] [address] [place], [place] [address] Tenisha Vizcarra M.D. [id number] Triglyceride [Mass/Vol] 57 mg/dL Normal 30-150 [facility] Comment on above: Performed By: #### 4 [id number] #### [facility] [address] [place], [place] [address] Tenisha Vizcarra M.D. [id number] US BREAST RIGHT LIMITEDon US BREAST RIGHT [...] FriOct 17, 2023 5:25:41 PM EDT Normal [facility] Comment on above: Order Comment: [employer] in [place]. Injury/Trauma or Illness?:Illness/Other How long have you had these symptoms (acute/chronic)?:Unknown Reason for exam?:mastitis Type of Exam?:Subsequent/Follow-up Additional signs and symptoms?:none MM FOLLOW UP POST CLIP PLACE [facility] 07-01-2023 MM FOLLOW UP POST CLIP PLACEMENT [...] results are concordant with the imaging findings. [facility] Workstation ID: [id number] Dictated by: CATRACHITO CUBA Transcribed by: DANIEL CALLAWAY on FriJul 01, 2023 9:21:59 AM EST Finalized by: CATRACHITO CUBA on FriJul 01, 2023 9:57:03 AM EST Normal [facility] US BREAST BIOPSY RIGHTon US BREAST BIOPSY [...] results are concordant with the imaging findings. [facility] Workstation ID: [id number] Dictated by: CATRACHITO CUBA on FriJul 01, 2023 8:44:54 AM EST Transcribed by: DANIEL CALLAWAY on FriJul 01, 2023 9:21:59 AM EST Finalized by: CATRACHITO CUBA on FriJul 01, 2023 9:57:03 AM EST Normal [facility] Comment on above: Order Comment: Injur y/Trauma [...] mammogram. Code ZW - Awaiting further pathology. [employer] Workstation ID: [id number] Addended: FriJul 03, 2023 9:22 AM by Catrachito Cuba MD ADDENDUM: Pathology - Right breast, 1 o'clock zone A, ultrasound-guided core biopsy: Actively inflamed duct compatible with mastitis. Pathology results are concordant with the imaging findings. [facility] Workstation ID: [id number] Dictated by: CATRACHITO CUBA on FriJul 01, 2023 8:44:54 AM EST Transcribed by: DANIEL CALLAWAY on FriJul 01, 2023 9:21:59 AM EST Finalized by: CATRACHITO CUBA on FriJul 01, 2023 9:57:03 AM EST Normal [facility] MR BREAST BILATERAL WITH AND WITHOUT CONTRASTon [...] FriJun 18, 2023 8:38:37 AM EST Normal [facility] Comment on above: Order Comment: Injur y/Trauma [...] sent to the patient regarding the results. [facility] Workstation ID: [id number] Dictated by: NAEL MCCRAY on FriApr 11, 2023 2:41:42 PM EST Transcribed by: LAVERNE JALLOH on FriApr 11, 2023 4:07:44 PM EST Finalized by: NAEL MCCRAY on FriApr 11, 2023 4:35:14 PM EST Normal [facility] US BREAST BILAT LIMITEDon US BREAST BILAT [...] sent to the patient regarding the results. [facility] Workstation ID: [id number] Dictated by: NAEL MCCRAY on FriApr 11, 2023 2:41:42 PM EST Transcribed by: LAVERNE JALLOH on FriApr 11, 2023 4:07:44 PM EST Finalized by: NAEL MCCRAY on FriApr 11, 2023 4:35:14 PM EST Normal [facility] Comment on above: Order Comment: Injur y/Trauma [...] [id number] Dictated by: LEE DEL TORO on [facility] Dec 09, 2020 2:40:07 AM EDT Transcribed by: LEE DEL TORO on [facility] Dec 09, 2020 2:40:07 AM EDT Finalized by: LEE DEL TORO on [facility] Dec 09, 2020 2:40:07 AM EDT [facility] Comment on above: Order Comment: Injur [...] 2. No biliary duct dilatation or gallstones. [employer] Workstation ID: [id number] Dictated by: BEBA FRANK on [facility] Dec 09, 2020 3:02:22 AM EDT Transcribed by: KWAKU JALLOH on [facility] Dec 09, 2020 5:26:22 AM EDT Finalized by: BEBA FRANK on [facility] Dec 09, 2020 6:43:30 AM EDT Normal [facility] Comment on above: Order Comment: US Ga llbladder Injury/Trauma or Illness?:Illness/Other How long have you had these symptoms (acute/chronic)?:Acute Reason for exam?:ruq pain; nausea; vomiting History of cancer?:na Surgeries, chemotherapy, or radiation?:na Type of Exam?:Ongoing CT DATED TODAY Additional signs and symptoms?:NONE CT SPINE LUMBAR WITHOUT CONT [facility] 12-06-2019 CT SPINE LUMBAR WITHOUT CONTRAST EXAMINATION: [...] secondary to a diffuse disc bulge. Normal [facility] CT SPINE THORACIC WITHOUT CO NTRASTon 12-06-2019 [...] appear clear. IMPRESSION: No acute findings. Normal [facility] CT SPINE LUMBAR WITHOUT CONT RASTon 12-05-2019 IMPRESSION: 1. No acute fracture or dislocation of the lumbar spine is seen. 2. There is mild to moderate right and mild left neural foraminal narrowing at L4-L5 secondary to a [facility] CT SPIN E LUMBAR WITHOUT CONTRAST HISTORY: Radiculopathy, minor trauma. [...] to be any significant spinal canal stenosis. [facility] [employer] User, Interfaces 12/05/2019 11:48 PM EDT EXAMINATION: [...] secondary to a [facility] WITHOUT CO NTRASTon 12-05-2019 IMPRESSION: No acute findings. [facility] EXAMINATION: CT SPIN E THORACIC WITHOUT CONTRAST HISTORY: Minor trauma. COMPARISON: [...] Imaged portions of the lungs appear clear. [employer] User, Interfaces - 12/05/2019 11:39 PM EDT [...] clear. IMPRESSION IMPRESSION: No acute findings. [facility] ABSOLUTE BAS 0.1 10*3/uL Normal 0.0-0.2 [facility] Comment on above: Performed By: #### A CBC #### [place] [address] ABSOLUTE EOS 0.10 10*3/uL Normal 0.0-0.7 [facility] Comment on above: Performed By: #### A CBC #### Testing performed at [address] [address] ABSOLUTE NEUTROPHIL COUNT 6.1 10*3/uL Normal 1.4-6.5 [facility] Comment on above: Performed By: #### A CBC #### Testing performed at [address] [place] [address] Basophils/100 WBC (Bld) 0.7 % Normal 0.0-2.0 [facility] Comment on above: Performed By: #### A CBC #### Testing performed at [address] [address] DTYPE AUTO DIFF Normal [facility] Comment on above: Performed By: #### A CBC #### Testing performed at [address] [address] Eosinophils/100 WBC (Bld) 1.4 % Normal 0.0-11.0 [facility] Comment on above: Performed By: #### A CBC #### Testing performed at [address] [address] Lymphocytes (Bld) [#/Vol] 2.40 10*3/uL Normal 1.2-3.4 [facility] Comment on above: Performed By: #### A CBC #### Testing performed at [address] [address] Lymphocytes/100 WBC (Bld) 26.2 % Normal 20.0-55.0 [facility] Comment on above: Performed By: #### A CBC #### Testing performed at [address] [address] Monocytes (Bld) [#/Vol] 0.6 10*3/uL Normal 0.0-0.7 [facility] Comment on above: Performed By: #### A CBC #### Testing performed at [address] [address] Monocytes/100 WBC (Bld) 6.1 % Normal 0.0-10.0 [facility] Comment on above: Performed By: #### A CBC #### Testing performed at [address] [address] Neutrophils/100 WBC (Bld) 65.6 % Normal 37.0-75.0 [facility] Comment on above: Performed By: #### A CBC #### Testing performed at [address] [address] Erythrocyte distribution width (RBC) [Ratio] 15.5 % High 11.5-14.5 [facility] Comment on above: Performed By: #### A CBC #### Testing performed at [address] [address] Hematocrit (Bld) [Volume fraction] 41.4 % Normal 36.0-48.0 [facility] Comment on above: Performed By: #### A CBC #### Testing performed at [address] [address] Hemoglobin (Bld) [Mass/Vol] 14.1 g/dL Normal 12.0-16.0 [facility] Comment on above: Performed By: #### A CBC #### Testing performed at [address] [address] MCH (RBC) [Entitic mass] 30.9 pg Normal 26.0-35.0 [facility] Comment on above: Performed By: #### A CBC #### Testing performed at [address] [address] MCHC (RBC) [Mass/Vol] 34.1 g/dL Normal 27.0-37.0 [facility] Comment on above: Performed By: #### A CBC #### Testing performed at [address] [address] MCV (RBC) [Entitic vol] 90.4 fL Normal 80.0-100.0 [facility] Comment on above: Performed By: #### A CBC #### Testing performed at [address] [address] Platelet mean volume (Bld) [Entitic vol] 8.2 fL Normal 7.4-11.0 [facility] Comment on above: Performed By: #### A CBC #### Testing performed at [address] [address] Platelets (Bld) [#/Vol] 350 10*3/uL Normal 130.0-400.0 [facility] Comment on above: Performed By: #### A CBC #### Testing performed at [address] [address] RBC (Bld) [#/Vol] 4.58 10*6/uL Normal 4.0-5.4 [facility] Comment on above: Performed By: #### A CBC #### Testing performed at [address] [address] WBC (Bld) [#/Vol] 9.3 10*3/uL Normal 3.6-11.0 [facility] Comment on above: Performed By: #### A CBC #### Testing performed at [address] [address] CBC, EDIF, [employer] 2019 ABSOLUTE BASOPHIL COUNT 0.1 10*3/uL 0 - 0.2 10*3/uL [facility] 24/7 Card Basophils/100 WBC (Bld) 0.7 % 0 - 2 % [facility] 24/7 Card Differential cell count method Nom (Bld) AUTO DIFF % [facility] Eosinophils (Bld) [#/Vol] 0.10 10*3/uL 0 - 0.7 10*3/uL [facility] Card Eosinophils/100 WBC (Bld) 1.4 % 0 - 11 % [facility] 24/7 Card Erythrocyte distribution width (RBC) [Ratio] 15.5 % High 11.5 - 14.5 % [facility] Hematocrit (Bld) [Volume fraction] 41.4 % 36 - 48 % [facility] Hemoglobin (Bld) [Mass/Vol] 14.1 g/dL [facility] Interpretation and review of laboratory results Abnormal [facility] Lymphocytes (Bld) [#/Vol] 2.40 10*3/uL 1.2 - 3.4 10*3/uL [facility] Lymphocytes/100 WBC (Bld) 26.2 % 20 - 55 % [facility] MCH (RBC) [Entitic mass] 30.9 pg 26 - 35 PG [facility] MCHC (RBC) [Mass/Vol] 34.1 g/dL [facility] MCV (RBC) [Entitic vol] 90.4 fL [facility] Monocytes (Bld) [#/Vol] 0.6 10*3/uL 0 - 0.7 10*3/uL [facility] Monocytes/100 WBC (Bld) 6.1 % 0 - 10 % [facility] Neutrophils (Bld) [#/Vol] 6.1 10*3/uL 1.4 - 6.5 10*3/uL [facility] Neutrophils/100 WBC (Bld) 65.6 % 37 - 75 % [facility] Platelet mean volume (Bld) [Entitic vol] 8.2 fL [facility] Platelets (Bld) [#/Vol] 350 10*3/uL 130 - 400 10*3/uL [facility] RBC (Bld) [#/Vol] 4.58 10*6/uL 4 - 5.4 10*6/uL [facility] WBC (Bld) [#/Vol] 9.3 10*3/uL 3.6 - 11 10*3/uL [facility] CMP FASTINGon 06-25-2019 A:G RATIO 1.3 RATIO Normal 1.3-2.2 [facility] Comment on above: Performed By: #### A CBC #### Testing performed at [place] [address] [place] [address] Albumin [Mass/Vol] 4.5 G/dl Normal 3.5-5.0 [facility] Comment on above: Performed By: #### A CBC #### Testing performed at [place] [address] [place] [address] ALP [Catalytic activity/Vol] 76 U/L Normal 38-126 [facility] Comment on above: Performed By: #### A CBC #### Testing performed at [address] [address] ALT [Catalytic activity/Vol] 32 U/L Normal 9-52 [facility] Comment on above: Performed By: #### A CBC #### Testing performed at [address] [address] AST [Catalytic activity/Vol] 23 U/L Normal 14-36 [facility] Comment on above: Performed By: #### A CBC #### Testing performed at [address] [address] Bilirubin [Mass/Vol] 0.3 mg/dL Normal 0.2-1.3 [facility] Comment on above: Performed By: #### A CBC #### Testing performed at [address] [address] Calcium [Mass/Vol] 9.2 mg/dL Normal 8.4-10.2 [facility] Comment on above: Performed By: #### A CBC #### Testing performed at [address] [address] Chloride [Moles/Vol] 101 mmol/L Normal 98-107 [facility] Comment on above: Result Comment: Plea se note: Triglyceride levels of 600mg/dL or higher may positively bias chloride results by approximately 2.1 mmol Performed By: #### A CBC #### Testing performed at [address] [address] CO2 [Moles/Vol] 26 mmol/L Normal 22-30 [facility] Comment on above: Performed By: #### A CBC #### Testing performed at [address] [address] Creatinine [Mass/Vol] 0.71 mg/dL Normal 0.7-1.2 [facility] Comment on above: Performed By: #### A CBC #### Testing performed at [address] [address] EST. GFR, >60 Normal [facility] Comment on above: Performed By: #### A CBC #### Testing performed at [address] [address] EST. GFR,Non >60 Normal [facility] Comment on above: Performed By: #### A CBC #### Testing performed at [address] [address] GFR/1.73 sq M predicted among non-blacks MDRD (S/P/Bld) [Vol rate/Area] Average GFR for 30-39 years old = 109. Normal [facility] Comment on above: Result Comment: Salon Receptionist rian Kidney disease, GFR = <60. Kidney failure, GFR = <15. The GFR estimate is not adjusted for extreme body surface area or acute process, nor has it been validated for women or ethnic groups other than and . Performed By: #### A CBC #### Testing performed at [address] [address] Glucose [Mass/Vol] 74 mg/dL Normal 70-100 [facility] Comment on above: Result Comment: NORMAL <100 mg/dL PREDIABETES 101-126 mg/dL DIABETES 126 mg/dL or higher Performed By: #### A CBC #### Testing performed at [address] [address] Potassium [Moles/Vol] 4.0 mmol/L Normal 3.5-5.1 [facility] Comment on above: Performed By: #### A CBC #### Testing performed at [address] [address] Protein [Mass/Vol] 8.1 g/dL Normal 6.3-8.2 [facility] Comment on above: Performed By: #### A CBC #### Testing performed at [address] [address] Sodium [Moles/Vol] 138 mmol/L Normal 137-145 [facility] Comment on above: Performed By: #### A CBC #### Testing performed at [facility] [address] [address] Urea nitrogen [Mass/Vol] 17 mg/dL Normal 7-20 [facility] Comment on above: Performed By: #### A CBC #### Testing performed at [facility] [address] [address] COMPREHENSIVE METABOLIC PANE [place] 06-25-2019 Albumin [Mass/Vol] 4.5 G/dl 3.5 - 5 G/dl [facility] Albumin/Globulin [Mass ratio] 1.3 {ratio} [facility] ALP [Catalytic activity/Vol] 76 U/L [facility] ALT [Catalytic activity/Vol] 32 U/L [facility] AST [Catalytic activity/Vol] 23 U/L [facility] Bilirubin [Mass/Vol] 0.3 mg/dL [facility] Calcium [Mass/Vol] 9.2 mg/dL [facility] Chloride [Moles/Vol] 101 mmol/L [facility] Comment on above: Please note: Triglyc eride levels of 600mg/dL or higher may positively bias chloride results by approximately 2.1 mmol CO2 [Moles/Vol] 26 mmol/L [facility] Creatinine [Mass/Vol] 0.71 mg/dL [facility] GFR/1.73 sq M predicted among blacks MDRD (S/P/Bld) [Vol rate/Area] mL/min/{1.73_m2} ml/min/1.73sq. m [facility] GFR/1.73 sq M predicted among non-blacks MDRD (S/P/Bld) [Vol rate/Area] mL/min/{1.73_m2} ml/min/1.73sq. m [facility] GFR/1.73 sq M predicted among non-blacks MDRD (S/P/Bld) [Vol rate/Area] Average GFR for 30-39 years old = 109. [facility] Comment on above: Chronic Kidney disea se, GFR = <60. Kidney failure, GFR = <15. The GFR estimate is not adjusted for extreme body surface area or acute process, nor has it been validated for women or ethnic groups other than and . Glucose post fast [Mass/Vol] 74 mg/dL [facility] Comment on above: NORMAL <100 mg/dL PREDIABETES 101-126 mg/dL DIABETES 126 mg/dL or higher Potassium [Moles/Vol] 4.0 mmol/L [facility] Protein [Mass/Vol] 8.1 g/dL [facility] Sodium [Moles/Vol] 138 mmol/L [facility] Urea nitrogen [Mass/Vol] 17 mg/dL [facility] CBCon 01-19-2019 ABSOLUTE BAS 0.1 10*3/uL Normal 0.0-0.2 [facility] ABSOLUTE EOS 0.20 10*3/uL Normal 0.0-0.7 [facility] ABSOLUTE NEUTROPHIL COUNT 6.6 10*3/uL High 1.4-6.5 [facility] Basophils/100 WBC (Bld) 0.6 % Normal 0.0-2.0 [facility] DTYPE AUTO DIFF Normal [facility] Eosinophils/100 WBC (Bld) 1.6 % Normal 0.0-11.0 [facility] Lymphocytes (Bld) [#/Vol] 2.80 10*3/uL Normal 1.2-3.4 [facility] Lymphocytes/100 WBC (Bld) 27.1 % Normal 20.0-55.0 [facility] Monocytes (Bld) [#/Vol] 0.6 10*3/uL Normal 0.0-0.7 [facility] Monocytes/100 WBC (Bld) 5.9 % Normal 0.0-10.0 [facility] Neutrophils/100 WBC (Bld) 64.8 % Normal 37.0-75.0 [facility] Erythrocyte distribution width (RBC) [Ratio] 14.5 % Normal 11.5-14.5 [facility] Hematocrit (Bld) [Volume fraction] 41.6 % Normal 36.0-48.0 [facility] Hemoglobin (Bld) [Mass/Vol] 14.4 g/dL Normal 12.0-16.0 [facility] MCH (RBC) [Entitic mass] 31.2 pg Normal 26.0-35.0 [facility] MCHC (RBC) [Mass/Vol] 34.6 g/dL Normal 27.0-37.0 [facility] MCV (RBC) [Entitic vol] 90.1 fL Normal 80.0-100.0 [facility] Platelet mean volume (Bld) [Entitic vol] 8.3 fL Normal 7.4-11.0 [facility] Platelets (Bld) [#/Vol] 305 10*3/uL Normal 130.0-400.0 [facility] RBC (Bld) [#/Vol] 4.62 10*6/uL Normal 4.0-5.4 [facility] WBC (Bld) [#/Vol] 10.2 10*3/uL Normal 3.6-11.0 [facility] CMP FASTINGon 01-19-2019 A:G RATIO 1.1 RATIO Low 1.3-2.2 [facility] Albumin [Mass/Vol] 4.0 G/dl Normal 3.5-5.0 [facility] ALP [Catalytic activity/Vol] 83 U/L Normal 38-126 [facility] ALT [Catalytic activity/Vol] 30 U/L Normal 9-52 [facility] AST [Catalytic activity/Vol] 28 U/L Normal 14-36 [facility] Bilirubin [Mass/Vol] 0.4 mg/dL Normal 0.2-1.3 [facility] Calcium [Mass/Vol] 9.4 mg/dL Normal 8.4-10.2 [facility] Chloride [Moles/Vol] 103 mmol/L Normal 98-107 [facility] Comment on above: Result Comment: Ryan berg note: Triglyceride levels of 600mg/dL or higher may positively bias chloride results by approximately 2.1 mmol CO2 [Moles/Vol] 27 mmol/L Normal 22-30 [facility] Creatinine [Mass/Vol] 0.71 mg/dL Normal 0.7-1.2 [facility] EST. GFR, >60 Normal [facility] EST. GFR,Non >60 Normal [facility] GFR/1.73 sq M predicted among non-blacks MDRD (S/P/Bld) [Vol rate/Area] Average GFR for 30-39 years old = 109. Normal [facility] Comment on above: Result Comment: Salon Receptionist rian Kidney disease, GFR = <60. Kidney failure, GFR = <15. The GFR estimate is not adjusted for extreme body surface area or acute process, nor has it been validated for women or ethnic groups other than and . Glucose [Mass/Vol] 106 mg/dL High 70-100 [facility] Comment on above: Result Comment: NORMAL <100 mg/dL PREDIABETES 101-126 mg/dL DIABETES 126 mg/dL or higher Potassium [Moles/Vol] 3.7 mmol/L Normal 3.5-5.1 [facility] Protein [Mass/Vol] 7.6 g/dL Normal 6.3-8.2 [facility] Sodium [Moles/Vol] 139 mmol/L Normal 137-145 [facility] Urea nitrogen [Mass/Vol] 12 mg/dL Normal 7-20 [facility] LIPID PROFILEon 01-19-2019 Cholesterol [Mass/Vol] 149 mg/dL Normal 107-217 [facility] Cholesterol in HDL [Mass/Vol] 33 mg/dL Normal 33-75 [facility] Cholesterol in LDL [Mass/Vol] 106 mg/dL Normal [facility] Cholesterol in VLDL [Mass/Vol] 10 mg/dL Normal 5.0-25 [facility] Cholesterol.total/Ch olesterol in HDL [Mass ratio] 4.52 {ratio} Normal [facility] Comment on above: Result Comment: RISK TOTAL/HDL RATIO MEN WOMEN 1/2 AVERAGE 3.43 3.27 AVERAGE 4.97 4.44 2X AVERAGE 9.55 7.05 3X AVERAGE 23.99 11.04 Triglyceride [Mass/Vol] 50 mg/dL Normal 0-150 [facility] TSH,REFLEX FREE T4on 019 TSH,REFLEX FREE T4 2.420 uIU/ML Normal 0.46-4.68 [facility] XR FOOT RIGHT 3+ VIEWS (ANA [...] consideration. 3. No acute fracture or dislocation. [employer] Workstation ID: [id number] Dictated by: BRIT RIVERA on FriOct 13, 2018 11:33:21 AM EDT Transcribed by: ABDIRIZAK FERNANDEZ on FriOct 13, 2018 11:39:27 AM EDT Finalized by: BRIT RIVERA on FriOct 13, 2018 3:49:26 PM EDT [facility] Comment on above: Order Comment: Injur y/Trauma or Illness?:Injury/Trauma How long have you had these symptoms (acute/chronic)?:Acute Reason for exam?:pain History of cancer?:na Surgeries, chemotherapy, or radiation?:na Type of Exam?:Initial Mechanism of injury?:running on treadmill Vital Signs Date Time Vital Sign Value Performing Clinician Facility 01-12-2024 10:02 Body height 157.5 cm Alyssa Pablo CNP Work Phone: [facility] 01-12-2024 10:02-040 Body mass index (BMI) [Ratio] 53.48 kg/m2 Alyssa Pablo CNP Work Phone: [facility] 01-12-2024 10:02 Body weight 132.63 kg Alyssa Pablo CNP Work Phone: [facility] Comment on above: ACTUAL WEIGHT 08-19-2023 09:00-0400 Diastolic blood pressure 91 mm[Hg] Ariana Conniff PA-C Work Phone: [facility] 08-19-2023 09:00-0400 Systolic blood pressure 129 mm[Hg] Ariana Conniff PA-C Work Phone: [facility] 08-19-2023 08:38-0400 Body height 157.5 cm Ariana Conniff PA-C Work Phone: [facility] 08-19-2023 08:38-0400 Body mass index (BMI) [Ratio] 54.43 kg/m2 Ariana Conniff PA-C Work Phone: [facility] 08-19-2023 08:38-0400 Body weight 134.99 kg Ariana Conniff PA-C Work Phone: [facility] 08-19-2023 08:38-0400 Heart rate 86 /min Ariana Conniff PA-C Work Phone: [facility] 08-19-2023 08:38-0400 SaO2% (BldA) [Mass fraction] 97 % Ariana Conniff PA-C Work Phone: [facility] 05-14-2023 10:15-0500 Body height 157.5 cm Ashley Riddle III, MD Work Phone: [facility] 05-14-2023 10:15-0500 Body mass index (BMI) [Ratio] 54.29 kg/m2 Ashley Riddle III, MD Work Phone: [facility] 05-14-2023 10:15-0500 Body weight 134.63 kg Ashley Riddle III, MD Work Phone: [facility] 05-14-2023 10:15-0500 Diastolic blood pressure 83 mm[Hg] Ashley Riddle III, MD Work Phone: [facility] 05-14-2023 10:15-0500 Heart rate 95 /min Ashley Riddle III, MD Work Phone: [facility] 05-14-2023 10:15-0500 SaO2% (BldA) [Mass fraction] 95 % Ashley Riddle III, MD Work Phone: [facility] 05-14-2023 10:15-0500 Systolic blood pressure 139 mm[Hg] Ashley Riddle III, MD Work Phone: [facility] 04-01-2023 10:01-0500 Diastolic blood pressure 90 mm[Hg] Ariana Conniff PA-C Work Phone: [facility] 04-01-2023 10:01-0500 Systolic blood pressure 128 mm[Hg] Ariana Conniff PA-C Work Phone: [facility] 04-01-2023 09:40-0500 Body height 157.5 cm Ariana Conniff PA-C Work Phone: [facility] 04-01-2023 09:40-0500 Body mass index (BMI) [Ratio] 53.96 kg/m2 Ariana Conniff PA-C Work Phone: [facility] 04-01-2023 09:40-0500 Body weight 133.81 kg Ariana Conniff PA-C Work Phone: [facility] 04-01-2023 09:40-0500 Heart rate 96 /min Ariana Conniff PA-C Work Phone: [facility] 04-01-2023 09:40-0500 SaO2% (BldA) [Mass fraction] 94 % Ariana Conniff PA-C Work Phone: [facility] 01-23-2023 09:44-0400 Body height 157.5 cm Ariana Conniff PA-C Work Phone: [facility] 01-23-2023 09:44-0400 Body mass index (BMI) [Ratio] 53.41 kg/m2 Ariana Conniff PA-C Work Phone: [facility] 01-23-2023 09:44-0400 Body weight 132.45 kg Ariana Conniff PA-C Work Phone: [facility] 01-23-2023 09:44-0400 Diastolic blood pressure 88 mm[Hg] Ariana Conniff PA-C Work Phone: [facility] 01-23-2023 09:44-0400 Heart rate 91 /min Ariana Conniff PA-C Work Phone: [facility] 01-23-2023 09:44-0400 SaO2% (BldA) [Mass fraction] 98 % Ariana Conniff PA-C Work Phone: [facility] 01-23-2023 09:44-0400 Systolic blood pressure 120 mm[Hg] Ariana Conniff PA-C Work Phone: [facility] 09-04-2022 09:14-0400 Diastolic blood pressure 80 mm[Hg] Ariana Conniff PA-C Work Phone: [facility] 09-04-2022 09:14-0400 Systolic blood pressure 121 mm[Hg] Ariana Conniff PA-C Work Phone: [facility] 09-04-2022 08:56-0400 Body height 157.5 cm Ariana Conniff PA-C Work Phone: [facility] 09-04-2022 08:56-0400 Body mass index (BMI) [Ratio] 53.22 kg/m2 Ariana Conniff PA-C Work Phone: [facility] 09-04-2022 08:56-0400 Body weight 132 kg Ariana Conniff PA-C Work Phone: [facility] 09-04-2022 08:56-0400 Heart rate 88 /min Ariana Conniff PA-C Work Phone: [facility] 09-04-2022 08:56-0400 SaO2% (BldA) [Mass fraction] 96 % Ariana Conniff PA-C Work Phone: [facility] 05-28-2022 10:51-0500 Body height 157.5 cm Ariana Conniff PA-C Work Phone: [facility] 05-28-2022 10:51-0500 Body mass index (BMI) [Ratio] 52.86 kg/m2 Ariana Conniff PA-C Work Phone: [facility] 05-28-2022 10:51-0500 Body weight 131.09 kg Ariana Conniff PA-C Work Phone: [facility] 05-28-2022 10:51-0500 Diastolic blood pressure 69 mm[Hg] Ariana Conniff PA-C Work Phone: [facility] 05-28-2022 10:51-0500 Heart rate 92 /min Ariana Conniff PA-C Work Phone: [facility] 05-28-2022 10:51-0500 SaO2% (BldA) [Mass fraction] 95 % Ariana Conniff PA-C Work Phone: [facility] 05-28-2022 10:51-0500 Systolic blood pressure 139 mm[Hg] Ariana Conniff PA-C Work Phone: [facility] 03-05-2022 15:41-0500 Body height 157.5 cm Ariana Conniff PA-C Work Phone: [facility] 03-05-2022 15:41-0500 Body mass index (BMI) [Ratio] 54.69 kg/m2 Ariana Conniff PA-C Work Phone: [facility] 03-05-2022 15:41-0500 Body weight 135.63 kg Ariana Conniff PA-C Work Phone: [facility] 03-05-2022 15:41-0500 Diastolic blood pressure 89 mm[Hg] Ariana Conniff PA-C Work Phone: [facility] 03-05-2022 15:41-0500 Heart rate 83 /min Ariana Conniff PA-C Work Phone: [facility] 03-05-2022 15:41-0500 SaO2% (BldA) [Mass fraction] 96 % Ariana Conniff PA-C Work Phone: [facility] 03-05-2022 15:41-0500 Systolic blood pressure 132 mm[Hg] Ariana Conniff PA-C Work Phone: [facility] 02-05-2022 09:38-0400 Diastolic blood pressure 89 mm[Hg] Ariana Conniff PA-C Work Phone: [facility] 02-05-2022 09:38-0400 Systolic blood pressure 140 mm[Hg] Ariana Conniff PA-C Work Phone: [facility] 02-05-2022 08:42-0400 Body height 157.5 cm Ariana Conniff PA-C Work Phone: [facility] 02-05-2022 08:42-0400 Body mass index (BMI) [Ratio] 54.69 kg/m2 Ariana Conniff PA-C Work Phone: [facility] 02-05-2022 08:42-0400 Body weight 135.63 kg Ariana Conniff PA-C Work Phone: [facility] 02-05-2022 08:42-0400 Heart rate 100 /min Ariana Conniff PA-C Work Phone: [facility] 02-05-2022 08:42-0400 SaO2% (BldA) [Mass fraction] 96 % Ariana Conniff PA-C Work Phone: [facility] 10-01-2021 09:28-0400 Body height 157.5 cm Ashley Riddle III, MD Work Phone: [facility] 10-01-2021 09:28-0400 Body mass index (BMI) [Ratio] 53.55 kg/m2 Ashley Riddle III, MD Work Phone: [facility] 10-01-2021 09:28-0400 Body weight 132.81 kg Ashley Riddle III, MD Work Phone: [facility] 10-01-2021 09:28-0400 Diastolic blood pressure 88 mm[Hg] Ashley Riddle III, MD Work Phone: [facility] 10-01-2021 09:28-0400 Heart rate 87 /min Ashley Riddle III, MD Work Phone: [facility] 10-01-2021 09:28-0400 SaO2% (BldA) [Mass fraction] 96 % Ashley Riddle III, MD Work Phone: [facility] 10-01-2021 09:28-0400 Systolic blood pressure 128 mm[Hg] Ashley Riddle III, MD Work Phone: [facility] 09-10-2021 11:02-0400 Body height 157.5 cm Priya Zamorayon [employer] Work Phone: [facility] 09-10-2021 11:02-0400 Body mass index (BMI) [Ratio] 52.57 kg/m2 Priya Ania [employer] Work Phone: [facility] 09-10-2021 11:02-0400 Body weight 130.36 kg Priya Ania [employer] Work Phone: [facility] 09-10-2021 11:02-0400 Diastolic blood pressure 94 mm[Hg] Priya Ania [employer] Work Phone: [facility] 09-10-2021 11:02-0400 Heart rate 89 /min Priya Ania [employer] Work Phone: [facility] 09-10-2021 11:02-0400 Systolic blood pressure 139 mm[Hg] Priya Ania [employer] Work Phone: [facility] 08-04-2020 10:26-0400 BMI (Body Mass Index) 47.47 kg/m2 Maikel Leal [facility] 08-04-2020 10:26-0400 Body Temperature 98.2 [degF] Maikel Leal [facility] 08-04-2020 10:26-0400 Body weight 121.56 kg Maikel Tommy [facility] 08-04-2020 10:26-0400 BP Diastolic 87 mm[Hg] sandee Tommy [facility] 08-04-2020 10:26-0400 BP Systolic 133 mm[Hg] sandee Tommy [facility] 08-04-2020 10:26-0400 [facility] 08-04-2020 10:26-0400 Pulse (Heart Rate) 79 /min [facility] 08-04-2020 10:26-0400 Pulse Oximetry 96 % [facility] 12-14-2019 09:32-0400 BMI (Body Mass Index) 49.19 kg/m2 [facility] 12-14-2019 09:32-0400 Body Temperature 98.1 [degF] [facility] 12-14-2019 09:32-0400 Body weight 134.08 kg [facility] 12-14-2019 09:32-0400 BP Diastolic 88 mm[Hg] [facility] 12-14-2019 09:32-0400 BP Systolic 130 mm[Hg] [facility] 12-14-2019 09:32-0400 Height 165.1 cm [facility] 12-14-2019 09:32-0400 Pulse (Heart Rate) 95 /min [facility] 12-14-2019 09:32-0400 Pulse Oximetry 96 % [facility] 12-07-2019 10:33-0400 BMI (Body Mass Index) 49.34 kg/m2 [facility] 12-07-2019 10:33-0400 Body Temperature 98.8 [degF] [facility] 12-07-2019 10:33-0400 Body weight 133.36 kg [facility] 12-07-2019 10:33-0400 BP Diastolic 74 mm[Hg] [facility] 12-07-2019 10:33-0400 BP Systolic 126 mm[Hg] [facility] 12-07-2019 10:33-0400 Height 164.4 cm [facility] 12-07-2019 10:33-0400 Pulse (Heart Rate) 84 /min [facility] 12-07-2019 10:33-0400 Pulse Oximetry 97 % [facility] 12-07-2019 10:33-0400 Respiratory Rate 14 /min [facility] 12-06-2019 00:21-0400 BP Diastolic 92 mm[Hg] [facility] 12-06-2019 00:21-0400 BP Systolic 138 mm[Hg] [facility] 12-06-2019 00:21-0400 Pulse (Heart Rate) 88 /min [facility] 12-06-2019 00:21-0400 Respiratory Rate 18 /min [facility] 12-05-2019 21:32-0400 Body Temperature 99.1 [degF] [facility] 12-05-2019 21:32-0400 Pulse Oximetry 97 % [facility] 06-25-2019 13:18-0500 BMI (Body Mass Index) 49.86 kg/m2 [facility] 06-25-2019 13:18-0500 Body Temperature 98.1 [degF] [facility] 06-25-2019 13:18-0500 Body weight 123.65 kg [facility] 06-25-2019 13:18-0500 BP Diastolic 82 mm[Hg] [facility] 06-25-2019 13:18-0500 BP Systolic 160 mm[Hg] [facility] 06-25-2019 13:18-0500 Height 157.5 cm [facility] 06-25-2019 13:18-0500 Pulse (Heart Rate) 85 /min [facility] 06-25-2019 13:18-0500 Pulse Oximetry 98 % [facility] 06-25-2019 13:18-0500 Respiratory Rate 14 /min [facility] 06-10-2019 08:16-0500 BMI (Body Mass Index) 49.35 kg/m2 [facility] 06-10-2019 08:16-0500 Body Temperature 97.39 [degF] [facility] 06-10-2019 08:16-0500 Body weight 122.38 kg [facility] 06-10-2019 08:16-0500 BP Diastolic 80 mm[Hg] [facility] 06-10-2019 08:16-0500 BP Systolic 110 mm[Hg] [facility] 06-10-2019 08:16-0500 Height 157.5 cm [facility] 06-10-2019 08:16-0500 Pulse (Heart Rate) 94 /min [facility] 06-10-2019 08:16-0500 Pulse Oximetry 97 % [facility] 06-10-2019 08:16-0500 Respiratory Rate 14 /min [facility] 03-17-2019 09:02-0500 BMI (Body Mass Index) 49.49 kg/m2 [facility] 03-17-2019 09:02-0500 Body Temperature 98.1 [degF] [facility] 03-17-2019 09:02-0500 Body weight 122.74 kg [facility] 03-17-2019 09:02-0500 BP Diastolic 74 mm[Hg] [facility] 03-17-2019 09:02-0500 BP Systolic 110 mm[Hg] [facility] 03-17-2019 09:02-0500 Height 157.5 cm [facility] 03-17-2019 09:02-0500 Pulse (Heart Rate) 100 /min [facility] 03-17-2019 09:02-0500 Pulse Oximetry 97 % [facility] 03-17-2019 09:02-0500 Respiratory Rate 16 /min [facility] 01-25-2019 13:10-0400 BMI (Body Mass Index) 51.4 kg/m2 [facility] 01-25-2019 13:10-0400 Body Temperature 98.4 [degF] [facility] 01-25-2019 13:10-0400 Body weight 127.46 kg [facility] 01-25-2019 13:10-0400 BP Diastolic 80 mm[Hg] [facility] 01-25-2019 13:10-0400 BP Systolic 117 mm[Hg] [facility] 01-25-2019 13:10-0400 Height 157.5 cm [facility] 01-25-2019 13:10-0400 Pulse (Heart Rate) 84 /min [facility] 01-25-2019 13:10-0400 Pulse Oximetry 97 % [facility] 01-25-2019 13:10-0400 Respiratory Rate 16 /min [facility] 11-24-2018 13:35-0400 BMI (Body Mass Index) 48.08 kg/m2 [facility] 11-24-2018 13:35-0400 Body Temperature 98.29 [degF] [facility] 11-24-2018 13:35-0400 Body weight 130.91 kg [facility] 11-24-2018 13:35-0400 BP Diastolic 84 mm[Hg] [facility] 11-24-2018 13:35-0400 BP Systolic 108 mm[Hg] [facility] 11-24-2018 13:35-0400 Height 165 cm [facility] 11-24-2018 13:35-0400 Pulse (Heart Rate) 85 /min [facility] 11-24-2018 13:35-0400 Pulse Oximetry 97 % [facility] 11-24-2018 13:35-0400 Respiratory Rate 14 /min [facility] 10-13-2018 11:26-0400 BP Diastolic 89 mm[Hg] Yasmin [facility] Comment on above: [place] [facility] [place]-13-[place] 11:26-0400 BP Systolic 142 mm[Hg] Yasmin [facility] Comment on above: [place] [facility] [place] 10-13-2018 11:02-0400 BMI (Body Mass Index) 44.99 kg/m2 Yasmin Brown [facility] 10-13-2018 11:02-0400 Body Temperature 98.29 [degF] Yasmin Brown [facility] 10-13-2018 11:02-0400 Height 160 cm Yasmin Brown [facility] 10-13-2018 11:02-0400 Pulse (Heart Rate) 84 /min Yasmin Brown [facility] 10-13-2018 11:02-0400 Pulse Oximetry 98 % Yasmin Brown [facility] 10-13-2018 11:02-0400 Respiratory Rate 18 /min Yasmin Brown [facility] 10-13-2018 11:02-0400 Weight 115.21 kg Yasmin [facility] 03-18-2018 23:39-0500 BP Diastolic 77 mm[Hg] [facility] Work Phone: 03-18-2018 23:39-0500 BP Systolic 133 mm[Hg] [facility] Work Phone: 03-18-2018 23:39-0500 Pulse (Heart Rate) 85 /min [facility] Work Phone: 03-18-2018 23:39-0500 Pulse Oximetry 97 % [facility] Work Phone: 03-18-2018 23:39-0500 Respiratory Rate 18 /min [facility] Work Phone: 03-18-2018 22:16-0500 Height 157.5 cm [facility] Work Phone: 03-18-2018 22:14-0500 Body Temperature 98.01 [degF] [facility] Work Phone: Encounters Encounter Date Encounter Type Care Provider Facility Start: 01-12-2024 End: 01-12-2024 Office outpatient new 45 minutes Alyssa Pablo CNP Work Phone: [facility] Comment on above: Abscess of right ping ast (Primary Dx); Family history of breast cancer Start: 01-12-2024 End: 01-12-2024 ambulatory ARIANA GARZA [facility] Start: 12-31-2023 End: 12-31-2023 ambulatory Sasha Alcala Facility:[facility] Start: 12-30-2023 End: 12-30-2023 ambulatory HWAK HÉCTOR Not Available Start: 12-15-2023 End: 12-15-2023 ambulatory HAWK HÉCTOR Not Available Start: 11-27-2023 End: 11-27-2023 Office outpatient visit 10 minutes Tracy Alejandre MD Work Phone: [facility] Comment on above: Abscess of breast (P rimary Dx); Cellulitis of right breast Start: 11-27-2023 End: 11-27-2023 ambulatory ARIANA REYES [facility] Start: 11-06-2023 End: 11-06-2023 Office outpatient visit 15 minutes Tracy Alejandre MD Work Phone: [facility] Comment on above: Abscess of breast (P rimary Dx); Cellulitis of right breast Start: 11-06-2023 End: 11-06-2023 ambulatory ARIANA REYES [facility] Start: 10-22-2023 End: 10-22-2023 Office outpatient visit 15 minutes Ariana Garza PA-C Work Phone: [facility] Comment on above: Cellulitis of right breast (Primary Dx); History of lump of right breast; Abscess of breast Start: 10-22-2023 End: 10-26-2023 ambulatory ARIANA GARZA [facility] Start: 10-17-2023 End: 10-17-2023 [facility]: 10-17-[facility]23 End: 10-21-2023 ambulatory [facility] Start: 10-16-2023 End: 10-16-2023 Office outpatient visit 15 minutes Nicole Dean PA-C Work Phone: [facility] Comment on above: Cellulitis of right breast (Primary Dx); Mastitis Start: 10-16-2023 End: 10-16-2023 ambulatory NICOLE DEAN [facility] Start: 09-30-2023 End: 09-30-2023 Office outpatient new 30 minutes Tracy Alejandre MD Work Phone: [facility] Comment on above: Mastitis (Primary Dx ) Start: 09-30-2023 End: 09-30-2023 ambulatory TRACY ALEJANDRE II [facility] Start: 08-19-2023 End: 08-19-2023 Office outpatient visit 25 minutes Ariana Garza PA-C Work Phone: [facility] Comment on above: Current moderate epi sode of major depressive disorder without prior episode (HCC) (Primary Dx); Prediabetes; Mastitis Start: 08-19-2023 End: 08-19-2023 ambulatory ARIANA GARZA [facility] Start: 07-03-2023 Coordination of care plan Cheri Hammond RN Patient Navigator Start: 07-03-2023 Documentation procedure Shari Tay [facility] General Surgery Comment on above: Results Start: 07-01-2023 Coordination of care plan Harper Gates RN Patient Navigator Start: 07-01-2023 End: 07-02-2023 ambulatory CATRACHITO WHYTE [facility] Start: 06-18-2023 End: 06-18-2023 Orders Only Ashley Riddle MD Work Phone: [facility] Start: 05-14-2023 End: 05-14-2023 Transcribe Orders Ashley Riddle MD Work Phone: [facility] Comment on above: Family history of br east cancer (Primary Dx) Nipple discharge (Pr imary Dx); Family history of breast cancer in first degree relative Start: 05-14-2023 End: 01-17-2024 Office outpatient new 20 minutes Ashley Riddle MD Work Phone: [facility] Comment on above: Galactorrhea Start: 04-25-2023 End: 04-25-2023 ambulatory ARIANA GARZA [facility] Start: 04-11-2023 End: 04-11-2023 ambulatory ARIANAIsaias REYES [facility] Start: 04-01-2023 End: 04-01-2023 Office outpatient visit 15 minutes Ariana Garza PA-C Work Phone: [facility] Comment on above: Discharge from right nipple (Primary Dx) Start: 04-01-2023 End: 04-05-2023 ambulatory ARIANAIsaias REYES [facility] Start: 01-23-2023 End: 01-23-2023 Office outpatient visit 25 minutes Ariana Garza PA-C Work Phone: [facility] Comment on above: Current moderate epi sode of major depressive disorder without prior episode (HCC) (Primary Dx); Prediabetes; Multiple joint complaints Start: 01-23-2023 End: 01-23-2023 ambulatory ARIANA GARZA [facility] Start: 09-04-2022 End: 09-04-2022 Office outpatient visit 15 minutes Ariana Browniff PA-C Work Phone: [facility] Comment on above: Prediabetes (Primary Dx); Current moderate episode of major depressive disorder without prior episode (HCC) Start: 05-28-2022 End: 05-28-2022 Office outpatient visit 15 minutes Ariana Browniff PA-C Work Phone: [facility] Comment on above: Current moderate epi sode of major depressive disorder without prior episode (HCC) (Primary Dx); Overactive bladder Start: 03-05-2022 End: 03-05-2022 Office outpatient visit 15 minutes Ariana Browniff PA-C Work Phone: [facility] Comment on above: Current moderate epi sode of major depressive disorder without prior episode (HCC) (Primary Dx); Needs flu shot Start: 02-05-2022 End: 02-05-2022 Office outpatient visit 15 minutes Ariana Garza PA-C Work Phone: [facility] Primary [facility] Physicians Comment on above: Current moderate epi sode of major depressive disorder without prior episode (HCC) (Primary Dx) Start: 10-02-2021 Documentation procedure Shari Tay CMA [facility] Start: 10-01-2021 Coordination of care plan Elisha ross RN Patient Navigator Start: 10-01-2021 End: 10-01-2021 Office outpatient new 20 minutes Ashley Riddle MD Work Phone: [facility] Comment on above: Abnormal mammogram o f right breast (Primary Dx) Start: 09-21-2021 Coordination of care plan Elisha ross RN Patient Navigator Comment on above: Mass of right breast , unspecified quadrant (Primary Dx) Start: 09-10-2021 End: 09-10-2021 Office outpatient new 30 minutes Priya Jorge LAW FIRM CONSULTANT Work Phone: [facility] Obstetrics [facility] Gynecology Comment on above: Suppurative hidraden itis (Primary Dx); Family history of breast cancer; Encounter for screening for malignant neoplasm of breast, unspecified screening modality Start: 04-29-2021 Orders Only Harper sanchez LAW FIRM CONSULTANT Work Phone: [facility] [employer] Comment on above: Encntr for obs for s care home expsr to oth biolg agents ruled out (Primary Dx) Start: 12-09-2020 End: 12-09-2020 Emergency department patient visit [facility] Start: 08-04-2020 End: 08-04-2020 Initial preventive medicine new pt age 18-39yrs Maikel Leal Work Phone: [facility] Primary Care Physicians Comment on above: Well adult health ch tiarra (Primary Dx) Start: 01-05-2020 End: 01-05-2020 ambulatory PHYSICIAN NO [facility] Start: 12-14-2019 End: 12-14-2019 Office outpatient visit 15 minutes Lana Harjit Work Phone: [facility] Comment on above: Essential hypertensi on (Primary Dx); Post-traumatic stress Start: 12-07-2019 End: 12-07-2019 Office outpatient visit 15 minutes Lana Harjit Work Phone: [facility] Comment on above: Chronic right-sided low back pain with bilateral sciatica (Primary Dx); Menorrhagia with regular cycle Start: 12-05-2019 End: 12-06-2019 Emergency department patient visit Surekha S Dwight Work Phone: [facility] Emergency Medicine Start: 06-25-2019 End: 06-25-2019 Subsequent hospital visit by physician Lana Lombardi Work Phone: [facility] [employer] Comment on above: Arrived Start: 06-25-2019 End: 06-25-2019 Office outpatient visit 15 minutes Lana Harijt Work Phone: [facility] Comment on above: Essential hypertensi on (Primary Dx); Long Q-T syndrome; Tobacco use Start: 06-10-2019 End: 06-10-2019 Office outpatient visit 15 minutes Lana Harjit Work Phone: [facility] Comment on above: Post-traumatic stres s (Primary Dx) Start: 03-17-2019 End: 03-17-2019 Office outpatient visit 15 minutes Lana Harjit Work Phone: [facility] Comment on above: Post-traumatic stres s (Primary Dx) Start: 02-01-2019 End: 02-01-2019 Telephone encounter Mady Hunter [facility] Comment on above: Other Start: 01-25-2019 End: 01-25-2019 Office outpatient visit 15 minutes Lana Harjit Work Phone: [facility] Comment on above: Post-traumatic stres s (Primary Dx) Start: 01-21-2019 End: 01-21-[address] Love Nelson [facility] Comment on above: Results Start: 01-19-2019 End: 01-19-2019 Letter encounter Lana Lombardi Work Phone: [facility] Medicine Start: 11-24-2018 End: 11-24-2018 Initial preventive medicine new pt age 18-39yrs Lana Lombardi Work Phone: [facility] Comment on above: Encounter for well w hortensia exam without gynecological exam (Primary Dx); Elevated TSH; BMI 45.0-49.9, adult Start: 10-13-2018 End: 10-17-2018 Patient encounter procedure YASMIN BROWN [facility] Start: 10-13-2018 End: 10-13-2018 Office outpatient new 20 minutes Yasmin Reena Brown Work Phone: [facility] [place] Comment on above: Foot pain, right (Pr imary Dx); Elevated blood pressure reading; Tobacco use Start: 03-18-2018 End: 03-18-2018 Emergency department patient visit Tejinder Case Work Phone: [facility] Emergency Medicine Procedures Date Procedure Procedure Detail Performing Clinician Start: 08-04-2020 Adult depression scr eening assessment Maikel Leal Start: 05-08-2020 Microscopic observat ion [Identifier] in Cervix by Cyto stain Maikel Leal Start: 12-05-2019 CT of thoracic spine Il lianna Olga Dwight Work Phone: Start: 12-05-2019 CT of lumbar spine Ilen e S [employer] Work Phone: Start: 06-25-2019 Standard ECG Lana fowler Work Phone: Start: 10-13-2018 X-ray of right foot Kesha gracia Reena Brown Work Phone: Plan of Treatment Date Care Activity Detail Author Start: 03-05-2028 Pneumococcal Vaccine : Ped or At-Risk (1 - PCV) Pneumococcal Vaccine: Ped or At-Risk (1 - PCV) [facility] Comment on above: Postponed from 06/01 (Not Indicated) Start: 03-05-2028 Pneumococcal Vaccine : Ped or At-Risk (1 of 2 - PCV) Pneumococcal Vaccine: Ped or At-Risk (1 of 2 - PCV) [facility] Comment on above: Postponed from 06/01 (Not Indicated) Start: 01-26-2024 End: 01-26-2024 Patient encounter procedure 01/26/2024 10:45 AM EDT Office Visit [facility] [address] [place] [address] Alyssa Pablo, LAW FIRM CONSULTANT [address] [place] [address] [facility] Start: 01-12-2024 End: 01-11-2025 Microbial culture, body fluid [facility] Work Phone: Comment on above: Expected: 01/12/2024 , Expires: 01/11/2025 Start: 12-28-2023 COVID-19 Vaccine ( season) COVID-19 Vaccine ( season) [facility] Start: 12-28-2023 Influenza vaccination [facility] Start: 12-18-2023 End: 12-18-2023 Patient encounter procedure 12/18/2023 8:40 AM EDT Office Visit [facility] [address] [place] [phone] Ariana Garza PA-C [address] [place] [id number] [facility] Start: 11-27-2023 End: 11-27-2023 Patient encounter procedure 11/27/2023 11:00 AM EDT Office Visit [facility] Plastic [facility] [address] [place] [phone] Tracy Alejandre II, MD [facility] [place] [address] [facility] Start: 11-23-2023 Depression Remission Assessment (PHQ9) Depression Remission Assessment (PHQ9) [facility] Start: 11-13-2023 End: 11-13-2023 Patient encounter procedure 11/13/2023 2:15 PM EDT Office Visit [facility] [address] [place] [address] Tracy Alejandre II, MD [address] [place] [address] [facility] Start: 11-06-2023 End: 11-06-2023 Patient encounter procedure 11/06/2023 9:30 AM EDT Office Visit [facility] [address] [place] [address] Tracy Alejandre II, MD [address] [place] [address] [facility] Start: 10-17-2023 End: 10-17-2023 Patient encounter procedure 10/17/2023 12:45 PM EDT Appointment [facility] Ultrasound [address] [place] [address] [facility] Start: 08-05-2023 End: 08-05-2023 Patient encounter procedure 08/05/2023 11:00 AM EDT Office Visit [facility] [address] [place] [address] Ariana Garza PA-C [address] [place] [address] [facility] Start: 07-07-2023 End: 07-07-2023 Patient encounter procedure 07/07/2023 8:00 AM EDT Office Visit [facility] General Surgery [address] [place] [address] Ashley Riddle III, MD [address] [place] [address] [facility] General Surgery Start: 07-01-2023 End: 07-01-2023 Patient encounter procedure [facility] Start: 05-08-2023 Screening for malign ant neoplasm of cervix [facility] Start: 04-25-2023 End: 04-25-2023 Patient encounter procedure 04/25/2023 11:00 AM EST Office Visit [facility] [address] [place] [address] Ariana Garza PA-C [address] [place] [address] [facility] Start: 04-11-2023 End: 04-11-2023 Patient encounter procedure [facility] Mammography Start: 01-08-2023 End: 01-08-2023 Patient encounter procedure 01/08/2023 10:40 AM EDT Office Visit [facility] [address] [place] [address] Ariana Garza PA-C [address] [place] [address] [facility] Start: 12-27-2022 COVID-19 Vaccine ( season) COVID-19 Vaccine ( season) [facility] Start: 12-27-2022 COVID-19 Vaccine ( season) COVID-19 Vaccine ( season) [facility] Start: 12-27-2022 Influenza vaccination Sequenti al Influenza Vaccine (#1) [facility] Start: 12-06-2022 Depression Remission Assessment (PHQ9) Depression Remission Assessment (PHQ9) [facility] Start: 08-20-2022 End: 08-20-2022 Patient encounter procedure 08/20/2022 Office Visit Primary Care Ariana Garza PA-C [address] [facility] [facility] [place] [address] [facility] Start: 05-28-2022 End: 05-28-2022 Patient encounter procedure 05/28/2022 Office Visit Primary Care Ariana Garza PA-C [address] [facility] [facility] [place] [address] [facility] Start: 03-05-2022 End: 03-05-2022 Patient encounter procedure 03/05/2022 Office Visit Primary Care Ariana Garza PA-C [address] [facility] [place] [address] [facility] Start: 12-27-2021 Influenza vaccination Sequenti al Influenza Vaccine (#1) [facility] Start: 10-01-2021 End: 10-01-2021 Patient encounter procedure 10/01/2021 Appointment Radiology Ashley Riddle III, MD [address] [place] [address] [facility] Mamm[facility] Start: 10-01-2021 End: 10-01-2021 Patient encounter procedure [facility] Start: 09-11-2021 End: 09-11-2021 Patient encounter procedure 09/11/2021 Appointment Radiology Priya Jorge, LAW FIRM CONSULTANT [address] [facility] [facility] [place] [address] [facility] M[facility] Start: 09-11-2021 COVID-19 Vaccine (3 - Booster for Moderna series) COVID-19 Vaccine (3 - Booster for Moderna series) [facility] Start: 08-04-2021 Adolescent depressio n screening assessment Depression Screening (PHQ9) [facility] Start: 08-04-2021 Depression screening using PHQ-9 (Patient Health Questionnaire 9) score Depression Screening (PHQ-2/9) [facility] Start: 08-04-2021 History and physical examination, annual for health maintenance Wellness Visit [facility] Start: 06-08-2021 COVID-19 Vaccine (3 - Booster for Moderna series) COVID-19 Vaccine (3 - Booster for Moderna series) [facility] Start: 06-08-2021 COVID-19 Vaccine (3 - Moderna series) COVID-19 Vaccine (3 - Moderna series) [facility] Start: 04-30-2021 End: 04-30-2021 Patient encounter procedure 04/30/2021 Office Visit Lab Gabriel Harper Lucila, LAW FIRM CONSULTANT [address] [place] [address] [facility] Start: 12-27-2020 Influenza vaccination Sequenti al Influenza Vaccine (#1) [facility] Start: 03-15-2020 End: 03-15-2020 Office Visit 03/15/2020 Office Visit Family Medicine Lana Lombardi APRN-LAW [employer]SULTANT [address] [place] [address] [facility] Start: 12-28-2019 Influenza vaccination INFLUENZA VACC INE (#1) [facility] Start: 12-28-2019 Influenza vaccinatio n given Sequential Influenza Vaccine (#1) [facility] Start: 12-14-2019 End: 12-14-2019 Office Visit 12/14/2019 Office Visit Family Medicine Lana Lombardi APRN-[employer] [address] [place] [address] [facility] Start: 07-12-2019 End: 07-12-2019 Office Visit 07/12/2019 Office Visit Family Medicine Lana Lombardi APRN-[employer]SULTANT [address] [place] [address] [facility] Medicine Start: 06-25-2019 End: 06-25-2020 Standard ECG ECG ECG Routine Essential hypertension Expected: 06/25/2019, Expires: 06/25/2020 [facility] Comment on above: Expected: 06/25/2019 , Expires: 06/25/2020 Start: 03-08-2019 End: 03-08-2019 Office Visit 03/08/2019 Office Visit Family Medicine Lana Lombardi APRN-[employer]SULT[employer] [address] [place] [address] [facility] Start: 01-25-2019 End: 01-25-2019 Office Visit 01/25/2019 Office Visit Family Medicine Lana Lombardi, [employer] CONSULTANT [address] [place] [address] [facility] Start: 12-27-2018 Influenza vaccination INFLUENZA VACC INE (#1) [facility] Start: 12-27-2018 Influenza vaccinatio n given SEQUENTIAL INFLUENZA VACCINE (Season Ended) [facility] Start: 11-24-2018 End: 11-25-2019 CBC, EDIF, PLATELET CBC, EDIF, PLATELET Lab Routine Encounter for well woman exam without gynecological exam Expected: 11/24/2018, Expires: 11/25/2019 [facility] Comment on above: Expected: 11/24/2018 , Expires: 11/25/2019 Start: 11-24-2018 End: 11-25-2019 Comprehensive metabolic 2000 panel COMPREHENSIVE METABOLIC PANEL Lab Routine Encounter for well woman exam without gynecological exam Expected: 11/24/2018, Expires: 11/25/2019 [facility] Comment on above: Expected: 11/24/2018 , Expires: 11/25/2019 Start: 11-24-2018 End: 11-25-2019 LIPID PANEL W CALCULATED LDL LIPID PANEL W CALCULATED LDL Lab Routine Encounter for well woman exam without gynecological exam Expected: 11/24/2018, Expires: 11/25/2019 [facility] Comment on above: Expected: 11/24/2018 , Expires: 11/25/2019 Start: 11-24-2018 End: 11-25-2019 TSH W/FT4 REFLEX TSH W/FT4 REFLEX Lab Routine Encounter for well woman exam without gynecological exam Elevated TSH Expected: 11/24/2018, Expires: 11/25/2019 [facility] Comment on above: Expected: 11/24/2018 , Expires: 11/25/2019 Start: 12-27-2017 Influenza vaccination INFLUENZA VACC INE (#1) [facility] Work Phone: Start: 2016 Screening for malign ant neoplasm of cervix HPV/Cotest [facility] Start: 2007 Screening for malign ant neoplasm of cervix [facility] Work Phone: Start: 2005 Third diphtheria, te tanus and acellular pertussis (DTaP) vaccination TDAP (ADULT) [facility] Work Phone: Start: 2004 Hepatitis C antibody , confirmatory test Hepatitis C Screening [facility] Start: 2004 Hepatitis C screening Hepatitis C Sc reening [facility] Start: 2004 Tetanus vaccination [facility] [place] [facility] Work Phone: Start: 2002 COVID-19 Vaccine (1) COVID-19 Vaccin e (1) [facility] Start: 2001 HIV screening HIV Screening [facility] Start: 1999 HIV screening HIV SCREENING DISCUSSION [facility] Work Phone: Start: 1992 Pneumococcal Vaccine : Ped or At-Risk (1 - PCV) Pneumococcal Vaccine: Ped or At-Risk (1 - PCV) [facility] Start: 1992 Pneumococcal Vaccine : Ped or At-Risk (1 of 2 - PPSV23) Pneumococcal Vaccine: Ped or At-Risk (1 of 2 - PPSV23) [facility] Start: 1991 COVID-19 Vaccine (1) COVID-19 Vaccin e (1) [facility] Start: 1989 History and physical examination, annual for health maintenance Wellness Visit [facility] Start: 1986 Screening for malign ant neoplasm of cervix PAP SMEAR [facility] Start: 1986 Tetanus vaccination [facility] End: 09-05-2023 Complete blood count with white cell differential, manual CBC and Differential Lab Routine Prediabetes 1 Occurrences starting 09/04/2022 until 09/05/2023 [facility] Comment on above: 1 Occurrences starti ng 09/04/2022 until 09/05/2023 End: 08-19-2024 Complete blood count with white cell differential, manual CBC and Differential Lab Routine Prediabetes 1 Occurrences starting 08/19/2023 until 08/19/2024 [facility] Comment on above: 1 Occurrences starti ng 08/19/2023 until 08/19/2024 End: 09-05-2023 Comprehensive metabolic 2000 panel - Serum or Plasma Comprehensive Metabolic Panel Lab Routine Prediabetes 1 Occurrences starting 09/04/2022 until 09/05/2023 [facility] Comment on above: 1 Occurrences starti ng 09/04/2022 until 09/05/2023 End: 01-24-2024 Comprehensive metabolic 2000 panel - Serum or Plasma Comprehensive Metabolic Panel Lab Routine Prediabetes 1 Occurrences starting 01/23/2023 until 01/24/2024 [facility] Comment on above: 1 Occurrences starti ng 01/23/2023 until 01/24/2024 End: 08-19-2024 Comprehensive metabolic 2000 panel - Serum or Plasma Comprehensive Metabolic Panel Lab Routine Prediabetes 1 Occurrences starting 08/19/2023 until 08/19/2024 [facility] Comment on above: 1 Occurrences starti ng 08/19/2023 until 08/19/2024 End: 09-05-2023 Hemoglobin A1c/Hemoglobin.total in Blood Hemoglobin A1c Lab Routine Prediabetes 1 Occurrences starting 09/04/2022 until 09/05/2023 [facility] Work Phone: Comment on above: 1 Occurrences starti ng 09/04/2022 until 09/05/2023 End: 01-24-2024 Hemoglobin A1c/Hemoglobin.total in Blood Hemoglobin A1c Lab Routine Prediabetes 1 Occurrences starting 01/23/2023 until 01/24/2024 [facility] Work Phone: Comment on above: 1 Occurrences starti ng 01/23/2023 until 01/24/2024 End: 08-19-2024 Hemoglobin A1c/Hemoglobin.total in Blood Hemoglobin A1c Lab Routine Prediabetes 1 Occurrences starting 08/19/2023 until 08/19/2024 [facility] Work Phone: Comment on above: 1 Occurrences starti ng 08/19/2023 until 08/19/2024 INR Coag RelTime (Bld) XR Foot R ight 3+ Views (Standard) Imaging STAT Foot pain, right 10/13/2018 11:25 AM EDT [facility] End: 09-05-2023 Lipid 1996 panel - Serum or Plasma Lipid Panel Lab Routine Prediabetes 1 Occurrences starting 09/04/2022 until 09/05/2023 [facility] Comment on above: 1 Occurrences starti ng 09/04/2022 until 09/05/2023 End: 08-19-2024 Lipid 1996 panel - Serum or Plasma Lipid Panel Lab Routine Prediabetes 1 Occurrences starting 08/19/2023 until 08/19/2024 [facility] Comment on above: 1 Occurrences starti ng 08/19/2023 until 08/19/2024 End: 06-02-2024 MG Breast - bilateral Diagnostic Mammography Diagnostic Emile Bilateral Imaging Routine Discharge from right nipple 1 Occurrences starting 04/01/2023 until 06/02/2024 [facility] Comment on above: 1 Occurrences starti ng 04/01/2023 until 06/02/2024 End: 11-10-2022 MG Breast - bilateral Screening Mammography Screening Emile Bilateral Imaging Routine Encounter for screening for malignant neoplasm of breast, unspecified screening modality 1 Occurrences starting 09/10/2021 until 11/10/2022 [facility] Work Phone: Comment on above: 1 Occurrences starti ng 09/10/2021 until 11/10/2022 End: 05-14-2024 MR Breast - bilateral WO and W contrast IV MR Breast Bilateral With And Without Contrast Imaging Routine Nipple discharge Family history of breast cancer in first degree relative 1 Occurrences starting 05/14/2023 until 05/14/2024 [facility] Work Phone: Comment on above: 1 Occurrences starti ng 05/14/2023 until 05/14/2024 End: 06-18-2024 MR Guidance for biopsy of Breast - right MR Breast Core Biopsy Right Imaging Routine 1 Occurrences starting 06/18/2023 until 06/18/2024 [facility] Comment on above: 1 Occurrences starti ng 06/18/2023 until 06/18/2024 End: 04-01-2024 Prolactin [Mass/volume] in Serum or Plasma Prolactin Lab Routine Discharge from right nipple 1 Occurrences starting 04/01/2023 until 04/01/2024 [facility] Comment on above: 1 Occurrences starti ng 04/01/2023 until 04/01/2024 Prolactin [Mass/volu me] in Serum or Plasma Prolactin Lab Routine Discharge from right nipple 04/01/2023 10:25 AM EST [facility] End: 04-29-2022 SARS-CoV-2 (COVID-19) RNA [Presence] in Respiratory specimen by ALFREDO with probe detection COVID-19/Influenza A,B Molecular Microbiology Routine Encntr for obs for susp expsr to ot biolg agents ruled out 1 Occurrences starting 04/29/2021 until 04/29/2022 [employer] Work Phone: Comment on above: 1 Occurrences starti ng 04/29/2021 until 04/29/2022 End: 09-05-2023 Thyrotropin [Units/volume] in Serum or Plasma TSH Lab Routine Prediabetes 1 Occurrences starting 09/04/2022 until 09/05/2023 [facility] Comment on above: 1 Occurrences starti ng 09/04/2022 until 09/05/2023 End: 09-05-2023 Thyroxine (T4) free [Mass/volume] in Serum or Plasma T4, Free Lab Routine Prediabetes 1 Occurrences starting 09/04/2022 until 09/05/2023 [facility] Comment on above: 1 Occurrences starti ng 09/04/2022 until 09/05/2023 End: 09-21-2022 Ultrasonography guided biopsy of right breast US Breast Biopsy Right Imaging Routine Mass Of Right Breast, Unspecified Quadrant 1 Occurrences starting 09/21/2021 until 09/21/2022 [employer] Work Phone: Comment on above: 1 Occurrences starti ng 09/21/2021 until 09/21/2022 End: 04-01-2024 US Breast - right US Breast Right Complete Imaging Routine Discharge from right nipple 1 Occurrences starting 04/01/2023 until 04/01/2024 [employer] Work Phone: Comment on above: 1 Occurrences starti ng 04/01/2023 until 04/01/2024 End: 06-18-2024 US Breast - right US Breast Right Complete Imaging Routine 1 Occurrences starting 06/18/2023 until 06/18/2024 [employer] Work Phone: Comment on above: 1 Occurrences starti ng 06/18/2023 until 06/18/2024 End: 09-29-2024 US Breast - right US Breast Right Complete Imaging Routine Mastitis 1 Occurrences starting 09/30/2023 until 09/29/2024 [employer] Work Phone: Comment on above: 1 Occurrences starti ng 09/30/2023 until 09/29/2024 End: 06-18-2024 US Guidance for biopsy of Breast - right US Breast Biopsy Right Imaging Routine 1 Occurrences starting 06/18/2023 until 06/18/2024 [facility] Comment on above: 1 Occurrences starti ng 06/18/2023 until 06/18/2024 Immunizations Immunization Date Immunization Notes Care Provider Kameron clemons 03-05-2022 Seasonal, quadrivale nt, recombinant, injectable influenza vaccine, preservative free Ariana Garza PA-C Work Phone: [facility] 03-05-2022 flu vac qv 2021,18yr up,rcm-PF (FLUBLOK QUAD) syringe Ariana Garza PA-C Work Phone: [facility] 03-05-2022 influenza virus vaccine, unspecified formulation Ariana Garza PA-C Work Phone: [facility] 03-17-2019 influenza virus vaccine, unspecified formulation [facility] Payers Date Payer Category Payer Self-pay 2022 Unknown [id number] 2020 Unknown [facility] [employer] - PREFERRED [id number] 2020-Present [id number] 2020 Unknown [id number] 2020 Unknown [id number] 1.13.385. [id number] 2018 Private Health Insurance xxx [id number] [id number]. 2.7.3.552266.315 2018 Private Health Insurance [id number] 1986 Unknown [id number] 2.16.840.1.825462.3.579. 2.903 1986 Unknown [id number] 2.16.840.1.282769.3.579. 2.903 1986 Unknown [id number] 2.16.840.1.896602.3.579. 2.903 1986 Unknown [id number] 2.16.840.1.175109.3.579. 2.900 1986 Unknown [id number] 2.16.840.1.717261.3.579. 2.900 1986 Unknown [id number] 2.16.840.1.930312.3.579. 2.900 1986 Unknown [id number] 2.16.840.1.779839.3.579. 2.903 1986 Unknown [id number] 2.16.840.1.334929.3.579. 2.3 1986 Unknown [id number] 2.16.840.1.487057.3.579. 2.903 1986 Unknown [id number] 2.16840.1.666053.3.579. 2 1986 Unknown [id number] 2.16.840.1.195933.3.579. 2.90 1986 Unknown [id number] 2.16.840.1.820186.3.579. 2. 1986 Unknown [id number] 2.16.840.1.004253.3.579. 2.903 1986 Unknown [id number] 2.16840.1.184085.3.579. 2 1986 Unknown [id number] 2.16.840.1.757240.3.579. 2.903 1986 Unknown [id number] 2.16.840.1.844579.3.579. 2 1986 Unknown [id number] 2.16.840.1.544208.3.579. 2.903 1986 Unknown [id number] 2.16.840.1.553220.3.579. 290 1986 Unknown [id number] 2.16.840.1.812948.3.579. 2.903 1986 Unknown [id number] 2.16.840.1.709687.3.579. 2.903 1986 Unknown [id number] 2.16.840.1.418903.3.579. 2.903 1986 Unknown [id number] 2.16.840.1.091309.3.579. 2.903 1986 Unknown [id number] 2.16.840.1.182981.3.579. 2.1259 1986 Unknown [id number] 2.16.840.1.989981.3.579. 2.1259 1986 Unknown [id number] 2.16.840.1.302177.3.579. 2.903 Unknown [id number] 2.16.840.1.767955.3.579. 2.462 Social History Date Type Detail Facility Start: 03-18-2018 End: 01-12-2024 Tobacco smoking status NHIS Current every day smoker [facility] Work Phone: Start: 03-18-2018 End: 04-01-2023 Cigarettes smoked current (pack per day) - Reported [facility] Start: 1985 Sex Assigned At Not on file [facility] Work Phone: History of tobacco use Cigarette Smoker [facility] Start: 10-13-2018 End: 02-05-2022 History SDOH Alcohol Frequency 1 [facility] Start: 01-31-2019 End: 04-01-2023 Alcohol intake No [facility] Start: 03-17-2019 End: 06-10-2019 Alcohol intake Current non-drinker of alcohol (finding) [facility] Start: 06-25-2019 End: 12-14-2019 Tobacco use and exposure Never used [facility] Start: 08-31-2021 End: 09-04-2022 Exposure to SARS-CoV-2 (event) Not sure [facility] Start: 12-14-2019 Tobacco Comment 10-15 cigarettes a day. [employer] [facility] Start: 08-04-2020 End: 01-12-2024 Tobacco use and exposure Former user [facility] End: 03-12-2020 History of tobacco use User of smokeless tobacco [facility] Start: 08-04-2020 End: 10-01-2021 Alcohol intake Lifetime non-drinker (finding) [facility] Start: 08-04-2020 End: 02-05-2022 History SDOH Social Connections Phone 5 [facility] Start: 08-04-2020 History SDOH Social Connections Get Together 4 [facility] Start: 08-04-2020 End: 02-05-2022 History SDOH Social Connections Membership 2 [facility] Start: 08-04-2020 History SDOH Social Connections Living 3 [facility] Start: 08-04-2020 History SDOH Physical Activity DPW 0 [facility] Start: 09-10-2021 End: 09-10-2022 Tobacco smoking status NHIS Ex-smoker [facility] Start: 02-23-2022 End: 01-12-2024 Alcohol intake Ex-drinker (finding) [facility] Start: 02-05-2022 Alcohol Comment rare [facility] Within the last year , have you been afraid of your partner or ex-partner? No [facility] Are you now , , , , never or living with a partner? [facility] How often to you hav e a drink containing alcohol? Never [facility] Average Number of Drinks Not on file [facility] Do you feel stress - tense, restless, nervous, or anxious, or unable to sleep at night because your mind is troubled all the time - these days [OSQ] Not at all [facility] (I/We) worried wheth er (my/our) food would run out before (I/we) got money to buy more. Never true [facility] Start: 05-08-2020 Gender identity Identifies as female gender (finding) [facility] Start: 05-08-2020 Sexual orientation Heterosexual (finding) [facility] History of tobacco use Current smoker [facility] How hard is it for y ou to pay for the very basics like food, housing, medical care, and heating Not very hard [facility] Clinical Notes 04-29-2021 to 01-12-2024 Patient InstructionsAlyssa Pablo, LAW FIRM CONSULTANT - 01/12/2024 10:04 AM EDTracy Ochoa II, MD - 11/27/2023 10:56 AM Tracy Hernandez II, MD - 11/06/2023 10:59 AM EDTPatient Instructions Note Date & Type Note Facility 01-12-2024 Instructions Alyssa Pablo CNP - 01/12/2024 12:52 PM EDT [place] Tobacco Quit Line [email or web address] documented in this encounter [facility] 01-12-2024 Note TODAY'S DATE: 024 PATIENT: Lele Leon : 1985, 38 y.o. Breast Cancer Risk Assessment: 5-year risk: 2.3% Lifetime Risk: 32% Chief Complaint Patient presents with Initial Visit (Intake) Right nipple Discharge.CAT 3.AL Imaging HPI: 38 y.o. female presents today for evaluation and management of right nipple discharge. She is a current tobacco user 0.5-1ppd. She denies alcohol or other drug use. 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 Her past medical history is significant for long QT syndrome. She does have a significant family history of breast cancer including her mother diagnosed at age 60 with inflammatory breast cancer who of metastatic disease, a maternal aunt diagnosed at an unknown age. Additionally a sister had lymphoma and her maternal grandfather had prostate cancer. On review of systems today she endorses activity change, diaphoresis, fatigue, nipple discharge, painful lump, breast pain, frequent peeing, pelvic pain.. On 10/01/2021, she had a right breast us guided biopsy for a right breast mass in the 6:00 right breast 6cm from nipple measuring up to 7mm which confirmed a fibroadenoma. She had green/creamy right nipple discharge start in November 2021 which persisted intermittently with expression. She had a 6 month follow up bilateral diagnostic mammogram with tomosynthesis and a bilateral breast ultrasound completed on 04/11/2023 at which time she was complaining of right sided nipple discharge. 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 She had a bilateral breast MRI for follow up of the nipple discharge on 06/18/2023 showing a 2.5cm area of linear/ductal non mass enhancement beginning at the base of the nipple and extending into the anterior 1:00 right breast. Biopsy was recommended for definitive diagnosis, BIRADS 4. She had a right breast ultrasound for second look followed by a right breast ultrasound guided biopsy at [facility] on 07/01/2023. Ultrasound showed an isolated, focal dilated duct in the subareolar right breast, extending toward 1 o'clock, that corresponds in size and position to the linear/ductal non-mass enhancement seen by MR. Faint low-level echoes are seen within the ectatic duct. No definite color Doppler signal. US guided biopsy confirmed Actively inflamed duct compatible with mastitis. She saw her PCP 08/19/2023 and was prescribed doxycycline x [address] Alejandre (plastics) on 09/30/2023 at which time he prescribed doxycycline 50mg bid x 1 month. She had a follow up right breast ultrasound on 10/17/2023 which showed a very superficial fluid collection 1:00 subareolar measuring 3.8 x 0.9cm with slight increased vascularity, BIRADS 3. She was changed to clindamycin. She was seen by her erp engineer who cultured the nipple discharge on 12/22/2023 with results showing: Anaerobic: Bacteroides vulgatus, and Prevotella sp. Aerobic culture: staphylococcus epidermidis which was resistant to penicillins, clindamycin. This was suspectible to Bactrim and she was prescribed Bactrim x 7 days and Flagyl x 7 days. She recently finished these antibiotics. She was seen by Dr. Sasha Alcala ([facility]) who referred her to our office for evaluation. She reports improvement in her symptoms although persistent symptoms. She has a tender lump at the upper inner areolar margin on the right as well as associated skin redness. She reports persistent green/creamy nipple discharge as well as blood. This has ruptured spontaneously through the skin x 2. Of note, she reports having a D&C and endometrial biopsy scheduled for 02/12 followed by a possible hysterectomy 03/30. RN SEXUAL ASSAULT history: Menarche: 11 /Para: Age at 1st live : nulliparous Menopausal status: pre Age at menopause: n/a OCP use: in past HRT use: no The following portions of the patient's history were reviewed and updated as appropriate: allergies, current medications, family history, past medical history, past surgical history, social history, and problem list. I have reviewed the following notes: Dr. Alejandre, PCP, Dr. Sasha Alcala (plastics) Family History of Breast Cancer: History of breast cancer in Mother, Maternal Aunt. Patient Medical History: Past Medical History: Diagnosis Date Abnormal mammogram Breast pain Depression Long Q-T syndrome Nipple discharge Past Surgical History: Procedure Laterality Date BREAST BIOPSY cyst removal on hand D&C (DIL & CURETTAGE, SHARP W/ SUCTION) US BREAST BIOPSY RIGHT Right 10/01/2021 US BREAST BIOPSY RIGHT 10/01/2021 Javier Mcdonald, DO [facility] ULTRASOUND US BREAST BIOPSY RIGHT Right 07/01/2023 US BREAST BIOPSY RIGHT 07/01/2023 BREAST ULTRASOUND LUIS Family History Problem Relation Age of Onset Breast cancer Mother 60 Cancer Mother Breast Lymphoma Sister Prostate cancer Maternal Grandfather Breast cancer Mater (more content not included)... [facility] 01-12-2024 History of Presen t illness Narrative Images from the original note were not included. TODAY'S DATE: 01/12/2024 PATIENT: Lele Leon : 1985, 38 y.o. Breast Cancer Risk Assessment: 5-year risk: 2.3% Lifetime Risk: 32% Chief Complaint Patient presents with Initial Visit (Intake) Right nipple Discharge.CAT 3.OH Imaging HPI: 38 y.o. female presents today for evaluation and management of right nipple discharge. She is a current tobacco user 0.5-1ppd. She denies alcohol or other drug use. 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 Her past medical history is significant for long QT syndrome. She does have a significant family history of breast cancer including her mother diagnosed at age 60 with inflammatory breast cancer who of metastatic disease, a maternal aunt diagnosed at an unknown age. Additionally a sister had lymphoma and her maternal grandfather had prostate cancer. On review of systems today she endorses activity change, diaphoresis, fatigue, nipple discharge, painful lump, breast pain, frequent peeing, pelvic pain.. On 10/01/2021, she had a right breast us guided biopsy for a right breast mass in the 6:00 right breast 6cm from nipple measuring up to 7mm which confirmed a fibroadenoma. She had green/creamy right nipple discharge start in November 2021 which persisted intermittently with expression. She had a 6 month follow up bilateral diagnostic mammogram with tomosynthesis and a bilateral breast ultrasound completed on 04/11/2023 at which time she was complaining of right sided nipple discharge. 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 She had a bilateral breast MRI for follow up of the nipple discharge on 06/18/2023 showing a 2.5cm area of linear/ductal non mass enhancement beginning at the base of the nipple and extending into the anterior 1:00 right breast. Biopsy was recommended for definitive diagnosis, BIRADS 4. She had a right breast ultrasound for second look followed by a right breast ultrasound guided biopsy at [facility] on 07/01/2023. Ultrasound showed an isolated, focal dilated duct in the subareolar right breast, extending toward 1 o'clock, that corresponds in size and position to the linear/ductal non-mass enhancement seen by MR. Faint low-level echoes are seen within the ectatic duct. No definite color Doppler signal. US guided biopsy confirmed Actively inflamed duct compatible with mastitis. She saw her PCP 08/19/2023 and was prescribed doxycycline x [address] Alejandre (plastics) on 09/30/2023 at which time he prescribed doxycycline 50mg bid x 1 month. She had a follow up right breast ultrasound on 10/17/2023 which showed a very superficial fluid collection 1:00 subareolar measuring 3.8 x 0.9cm with slight increased vascularity, BIRADS 3. She was changed to clindamycin. She was seen by her erp engineer who cultured the nipple discharge on 12/22/2023 with results showing: Anaerobic: Bacteroides vulgatus, and Prevotella sp. Aerobic culture: staphylococcus epidermidis which was resistant to penicillins, clindamycin. This was suspectible to Bactrim and she was prescribed Bactrim x 7 days and Flagyl x 7 days. She recently finished these antibiotics. She was seen by Dr. Sasha Alcala ([facility]) who referred her to our office for evaluation. She reports improvement in her symptoms although persistent symptoms. She has a tender lump at the upper inner areolar margin on the right as well as associated skin redness. She reports persistent green/creamy nipple discharge as well as blood. This has ruptured spontaneously through the skin x 2. Of note, she reports having a D&C and endometrial biopsy scheduled for 02/12 followed by a possible hysterectomy 03/30. RN SEXUAL ASSAULT history: Menarche: 11 /Para: Age at 1st live : nulliparous Menopausal status: pre Age at menopause: n/a OCP use: in past HRT use: no The following portions of the patient's history were reviewed and updated as appropriate: allergies, current medications, family history, past medical history, past surgical history, social history, and problem list. I have reviewed the following notes: Dr. Alejandre, PCP, Dr. Sasha Alcala (plastics) Family History of Breast Cancer: History of breast cancer in Mother, Maternal Aunt. Patient Medical History: Past Medical History: Diagnosis Date Abnormal mammogram Breast pain Depression Long Q-T syndrome Nipple discharge Past Surgical History: Procedure Laterality Date BREAST BIOPSY cyst removal on hand D&C (DIL & CURETTAGE, SHARP W/ SUCTION) US BREAST BIOPSY RIGHT Right 10/01/2021 US BREAST BIOPSY RIGHT 10/01/2021 Javier Mcdonald, DO [facility] ULTRASOUND US BREAST BIOPSY RIGHT Right 07/01/2023 US BREAST BIOPSY RIGHT 07/01/2023 BREAST ULTRASOUND [facility]IS Family History Problem Relation Age of Onset Breast cancer Mother 60 Cancer Mother Breast Lymphoma Sister Prostate cancer Maternal Grandfather Breast cancer Maternal Aunt Social History Occupational History 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 SULFAMETHOXAZOLE-TRIMETHOPRIM (BACTRIM DS,SEPTRA DS) 800-160 MG PER TABLET Take 1 (one) tablet by mouth 2 (two) times a day for 10 days . Previous Medications BLOOD-GLUCOSE SENSOR (FREESTYLE ANDREW 3 SENSOR) MALIA For continuous glucose monitoring. Change every 14 days . BUPROPION (WELLBUTRIN XL) 300 MG 24 HR TABLET Take 1 (one) tablet (300 mg total) by mouth daily . DOXYCYCLINE HYCLATE (VIBRA-TABS) 100 MG TABLET Take 1 (one) tablet (100 mg total) by mouth 2 (two) times a day . FLU VAC QV 2021,18YR UP,RCM-PF (FLUBLOK QUAD) SYRINGE Sign this order in conjunction with the immunization order to satisfy [place] Board of Pharmacy Positive ID requirements for immunization orders. . METFORMIN (GLUCOPHAGE-XR) 500 MG 24 HR TABLET Take 1 (one) tablet (500 mg total) by mouth daily with breakfast . MULTIVITAMIN (THERAGRAN) PER TABLET Take 1 (one) tablet by mouth daily . Modified Medications No medications on file Discontinued Medications No medications on file Allergies: Bee venom protein (honey bee) and Ibuprofen Review of Systems Constitutional: Positive for activity change, diaphoresis and fatigue. Negative for appetite change, chills, fever and unexpected weight change. HENT: Negative for congestion, dental problem, hearing loss, sore throat, tinnitus, trouble swallowing and voice change. Eyes: Negative for photophobia, pain and visual disturbance. Respiratory: Negative for apnea, cough, chest tightness, shortness of breath, wheezing and stridor. Cardiovascular: Negative for chest pain, palpitations and leg swelling. Gastrointestinal: Positive for abdominal distention. Negative for abdominal pain, blood in stool, constipation, diarrhea, nausea and vomiting. Endocrine: Negative for cold intolerance and heat intolerance. Genitourinary: Positive for frequency, menstrual problem and pelvic pain. Negative for decreased urine volume, difficulty urinating, dysuria, enuresis, flank pain, hematuria, urgency and vaginal discharge. Musculoskeletal: Negative for arthralgias, back pain, gait problem, joint swelling, myalgias, neck pain and neck stiffness. Skin: Negative for color change, pallor, rash and wound. Neurological: Negative for dizziness, syncope, speech difficulty, weakness, light-headedness, numbness and headaches. Hematological: Negative for adenopathy. Does not bruise/bleed easily. Psychiatric/Behavioral: Negative for confusion, hallucinations, sleep disturbance and suicidal ideas. The patient is not nervous/anxious. All other systems reviewed and are negative. Breast: Positive for nipple discharge, painful lump, breast pain. Patient denies breast lumps, breast skin lesion. IMAGING: I have independently reviewed the most recent imaging including diagnostic mammogram and ultrasound from March 2023, MRI from May 2023, ultrasound and biopsy from June 2023, ultrasound September 2023. PHYSICAL EXAM: Ht 5' 2 Wt 132.6 kg (292 lb 6.4 oz) Comment: ACTUAL WEIGHT LMP 12/23/2023 BMI 53.48 kg/m [employer]: No Physical Exam Vitals reviewed. Constitutional: General: She is not in acute distress. Appearance: She is well-developed. She is not diaphoretic. Neck: Thyroid: No thyromegaly. Chest: Breasts: Right: Inverted nipple present. Comments: History of bilateral nipple piercings, currently removed. Abscess as marked right upper inner quadrant. No other breast masses, skin changes. No axillary adenopathy. Musculoskeletal: General: No tenderness. Lymphadenopathy: Cervical: No cervical adenopathy. Upper Body: Right upper body: No supraclavicular or axillary adenopathy. Left upper body: No supraclavicular or axillary adenopathy. Skin: Coloration: Skin is not pale. Findings: No erythema or rash. Neurological: Mental Status: Mental status is at baseline. Psychiatric: Behavior: Behavior normal. ASSESSMENT/PLAN: 38 y.o. female presents today for evaluation management of right nipple discharge. 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 She initially had changes including purulent nipple discharge that started in November 2022. She ultimately had diagnostic imaging workup in March 2023 which showed no abnormalities to explain the discharge. This persisted and then she therefore had a breast MRI in May 2023 which identified a 2.5 cm area of linear/ductal non-mass like enhancement in the subareolar right breast. She underwent a biopsy of this area with ultrasound guidance in June 2023 which confirmed actively inflamed duct compatible with mastitis. She was unfortunately not treated with any antibiotics until late July 2023 at which time she was prescribed doxycycline. Since that time she has had recurrence of a fluid collection in the subareolar area numerous times which has spontaneously drained through the skin twice. She had ultrasound workup of this in September 2023 which showed a superficial 3.8 cm fluid collection in the 1:00 subareolar right breast. 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 She recently completed Flagyl and Bactrim x 7 days. Her symptoms are improved today however are not completely resolved. There was a 3 x 1 cm area of fluctuance at the upper inner areolar margin on the right. I recommended incision and drainage of this chronic abscess. After reviewing the procedure and obtaining written consent, I cleansed the skin overlying the abscess with ChloraPrep and used 3 cc of 1% lidocaine for local numbing. She was not adequately numbed with this dose and therefore I injected 2 additional cc of 1% lidocaine. Once adequately numbed I then used an 11 blade scalpel to make a 1 cm incision directly over the area of fluctuance. I expressed a small amount of thick white purulence and a moderate amount of blood. I did culture the abscess cavity which was about 1 cm deep into the breast. I packed the abscess cavity with 1/4 plain gauze and instructed her to remove 1 cm of this per day and trim the end until gone (should be about 3 to 4 days). I covered the site with a 4 x 4 dressing which she can change as needed. She tolerated the procedure well. Given her previous culture results showing anaerobic and Staphylococcus infection I have elected to resume Flagyl and Bactrim x 10 days. We discussed that her smoking history is likely contributing to the chronic abscess and I strongly encouraged smoking cessation. I provided her with the [place] tobacco quit line information on her AVS. I would like to see her back for follow-up in 1 to 2 weeks or sooner if she has any new concerns. She denies questions at this time. Finally, I am going to refer her to genetic counseling to discuss her family history further and for consideration of possible testing. Return in about 1 week (around 01/19/2024). I personally spent 45-59 minutes on this encounter today which includes [id number] time with the patient, time reviewing the chart, and time spent documenting the encounter. documented in this encounter [facility] 11-27-2023 Note Lele Leon present s for a persistent cyst in the right breast, treated with antibiotics. Since her last visit 3 weeks ago, the cyst has continued to decrease, from the size of a daily to a pea and is not tender. She completed antibiotic a week ago Plan - doing much better. Excision snf is still a consideration. Follow up as needed. AUTHENTICATED BY TRACY ALEJANDRE II, ON 11/27/2023 12:56:45 [facility] 11-27-2023 History of Presen t illness Narrative Lele Leon presents for a persistent cyst in the right breast, treated with antibiotics. Since her last visit 3 weeks ago, the cyst has continued to decrease, from the size of a daily to a pea and is not tender. She completed antibiotic a week ago Plan - doing much better. Excision snf is still a consideration. Follow up as needed. documented in this encounter [facility] 11-06-2023 Note Lele Leon present s for a persistent cyst in the right breast, treated with antibiotics. Since her last visit 2 weeks ago and taking clindamycin, the cyst has continued to decrease, from the size of a plum to a daily, and is also less tender. Plan is to taper clindamycin for 2 more weeks and recheck in 3 weeks. Excision snf is still a consideration. AUTHENTICATED BY TRACY ALEJANDRE II, ON 11/06/2023 12:39:37 [facility] 11-06-2023 History of Presen t illness [...] weeks and recheck in 3 weeks. Excision continuous churn buttermaker is still a consideration. documented in this encounter [facility] 10-22-2023 Note Lele Leon present s for [...] BY TRACY ALEJANDRE II, ON 10/22/2023 15:39:42 [facility] 10-22-2023 History of Presen t illness [...] weeks, then reevaluate. documented in this encounter [facility] 10-16-2023 Note Lele Leon female 38 y.o. [...] AUTHENTICATED BY NICOLE DEAN, ON 10/17/2023 09:28:01 [facility] 10-16-2023 History of Presen t illness [...] Nicole Dean PA-C documented in this encounter [facility] 10-16-2023 History of Presen t illness Narrative [...] Nicole Dean PA-C documented in this encounter [facility] 09-30-2023 Note Lele Leon female 38 y.o. [...] BY TRACY ALEJANDRE II, ON 10/01/2023 12:29:19 [facility] 08-25-2023 Note .Subjective Patient ID: Lele [...] If this im (more content not included)... [facility] 08-25-2023 History of Presen t illness [...] with breakfast . - blood-glucose sensor (FreeStyle Andrew 3 Sensor) Malia; For continuous glucose monitoring. Change every 14 days . - Hemoglobin A1c; Future - CBC and Differential; Future - Comprehensive Metabolic Panel; Future - Lipid Panel; Future Mastitis - doxycycline hyclate (VIBRA-TABS) 100 MG tablet; Take 1 (one) tablet (100 mg total) by mouth 2 (two) times a day . Note: This dictation was generated using Brain[employer] voice recognition software. Please excuse any grammatical or spelling errors that may have occurred using the system. documented in this encounter [facility] 07-03-2023 History of Presen t illness Narrative Patient informed of negative right breast biopsy results. Patient also informed of the need for a repeat 6 month right breast mammogram and US. Recall placed in computer. documented in this encounter [facility] 07-03-2023 History of Presen t illness Narrative Called patient today for post biopsy call/check in. No answer, left VM for patient to return my call with any questions/concerns. Per chart, patient has viewed results in [employer] which reveal mastitis. Ordering provider to call patient with results. Benign path entered into breast care summary. Navigation will sign off at this time. Cheri MATTHEWS, RN General Oncology Nurse Navigator Breast Health Nurse Navigator [phone] documented in this encounter [facility] 07-01-2023 History of Presen t illness Narrative [...] in good condition. documented in this encounter [facility] 05-14-2023 History of Presen t illness Narrative [...] to genetic counseling. documented in this encounter [facility] 04-01-2023 Note Addended by: ARIANA GARZA on: 04/01/2023 10:45 AM Modules accepted: Orders [facility] 04-01-2023 Note Addended by: ARIANA GARZA on: 04/01/2023 10:45 AM Modules accepted: Orders [facility] 04-01-2023 Miscellaneous Notes Addended by: ARIANA GARZA on: 04/01/2023 10:45 AM Modules accepted: Orders documented in this encounter [facility] 04-01-2023 History of Presen t illness Narrative [...] Future Note: This dictation was generated using Brain[employer] voice recognition software. Please excuse any grammatical or spelling errors that may have occurred using the system. documented in this encounter [facility] 01-28-2023 History of Presen t illness Narrative .Subjective Patient ID: Lele eLon is a 37 y.o. female. Lele is [...] . Note: This dictation was generated using Brain[employer] voice recognition software. Please excuse any grammatical or spelling errors that may have occurred using the system. documented in this encounter [facility] 09-09-2022 History of Presen t illness Narrative .Subjective Patient ID: Lele Leon is a 37 y.o. female. Lele is a 37-year-old female presenting today for follow-up visit for management chronic conditions. She reports overall things are going well. She is really enjoying her new job still and is liking the worklife balance. She is compliant with her medications. [...] . Note: This dictation was generated using Brain[employer] voice recognition software. Please excuse any grammatical or spelling errors that may have occurred using the system. documented in this encounter [facility] 05-28-2022 History of Presen t illness Narrative [...] . Note: This dictation was generated using Brain[employer] voice recognition software. Please excuse any grammatical or spelling errors that may have occurred using the system. 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 Please excuse any grammatical or spelling errors that may have occurred using the system. documented in this encounter [facility] 02-05-2022 History of Presen t illness Narrative [...] . Note: This dictation was generated using Brain[employer] voice recognition software. Please excuse any grammatical [...] people? Somewhat difficult documented in this encounter [facility] 10-02-2021 History of Presen t illness Narrative Patient informed of negative right breast biopsy results. Patient also informed of the need for a repeat mammogram and ultrasound in 6 months. Recall placed in computer. documented in this encounter [facility] 10-01-2021 History of Presen t illness Narrative [...] in good condition. documented in this encounter [facility] 10-01-2021 Instructions Elisha Fuentes RN - 10/01/2021 [...] at any time. documented in this encounter [facility] 10-01-2021 History of Presen t illness Narrative [...] by Kaitlin Tay. documented in this encounter [facility] 09-21-2021 History of Presen t illness Narrative Dr. Lim met with patient to discuss imaging results and recommendations. He is recommending surgical consult and Right ultrasound breast biopsy Explained Breast Health Nurse role in assisting patient scheduling, education, and support. Referral to Dr. Riddle. Appointment scheduled with Dr. Riddle on 10/01/21 at [facility]. Biopsy appointment scheduled on 10/01/21 at [facility]. Patient Accepted first available appointment offered for consultation and/or biopsy. Anticoagulants = None Allergies = ibuprofen, bee venom. After Visit Summary reviewed with patient to include appointment information, biopsy education and office contact information. All questions answered. documented in this encounter [facility] 09-21-2021 Instructions Elisha Fuentes RN - 09/21/2021 [...] must lie still during the procedure. The medical device sales representative places warm gel on your breast and [...] at any time. 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 Self pay??-refer to [facility] if applicable- [phone] Order Specific Question: Reason for Exam: Answer: family history of breast cancer (mother) Order Specific Question: Is the patient ? Answer: No Order Specific Question: Release to patient Answer: Immediate No results found for this or any previous visit (from the past 336 hour(s)). Note: This dictation was generated using Brain[employer] voice recognition software. Please excuse any grammatical [...] is causing irritation. documented in this encounter [facility] 04-29-2021 History of Presen t illness Narrative Patient called [facility] with concern for COVID-19 and need for testing. [place]/ Department: [facility] ED Fever: no S/S : cough, sore throat, headache Known positive covid exposure?: no Per IDSA guidelines, testing is indicated. Suspect COVID, order placed. Patient aware this phone consult is for testing only. They will follow up with PCP/UC/ED for symptom management, if needed. documented in this encounter [facility] Evaluation note Diagnosis Encntr for obs for susp expsr to oth biolg agents ruled out- Primary [facility] Diagnosis Suppurative hidradenitis- Primary Hidradenitis Family history of breast cancer Family history of malignant neoplasm of breast Encounter for screening for malignant neoplasm of breast, unspecified screening modality [facility] Diagnosis Mass of right breast, unspecified quadrant- Primary [facility] Diagnosis Abnormal mammogram of right breast- [...] Hypertonicity of bladder [facility] Diagnosis Prediabetes- Primary Other abnormal glucose Current moderate episode of major depressive disorder without prior episode (HCC) [facility] Current moderate episode of major depressive disorder without prior episode (HCC)- Primary Prediabetes Other abnormal glucose Multiple joint complaints [facility] Diagnosis Discharge from right nipple- Primary [facility] Diagnosis Family history of breast cancer- Primary Family history of malignant neoplasm of breast [facility] Diagnosis Nipple discharge- Primary Other sign and symptom in breast Family history of breast cancer in first degree relative Family history of malignant neoplasm of breast [facility] Diagnosis 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 [facility] Diagnosis Current moderate episode of major depressive disorder without prior episode (HCC)- Primary Prediabetes Other abnormal glucose Mastitis Inflammatory disease of breast [facility] Diagnosis Mastitis- Primary Inflammatory disease of breast [facility] Diagnosis Cellulitis of right breast- Primary Mastitis Inflammatory disease of breast [facility] Diagnosis Cellulitis of right breast- Primary History of lump of right breast Abscess of breast Inflammatory disease of breast [facility] Diagnosis Abscess of breast- Primary Inflammatory disease of breast Cellulitis of right breast [facility] Diagnosis Abscess of breast- Primary Inflammatory disease of breast Cellulitis of right breast [facility] Diagnosis Abscess of right breast- Primary Family history of breast cancer Family history of malignant neoplasm of breast [facility] Diagnosis Abscess of right breast- Primary Family history of breast cancer Family history of malignant neoplasm of breast [facility] Attachments The following attachments cannot be sent through Care Everywhere. * Hidradenitis Suppurativa (Senegalese) [facility]* Attachments The following attachments cannot be sent through Care Everywhere. * Cervical: Exercises (Senegalese) [facility] * Tejinder Case MD - 03/18/2018 Continue to soak in warm water and dish soap, call Dr. Tincher symptoms worsens over the weekend, clindamycin 4 times daily as directed The following attachments cannot be sent through Care Everywhere. * Paronychia of the Finger or Toe (Senegalese) in this encounter* Instructions* Surekha Quintanilla MD [...] [facility] Diagnoses Foot pain, right Conn, Yasmin Valles, LAW FIRM CONSULTANT [address] [place] [address] Kalin Logan, MATTHEW [address] [place] [address] Status Reason Specialty Diagnoses / Procedures Re ferred By Contact Referred To Contact New Request Diagnoses Essential hypertension Procedures ECG Lana Lombardi APRN-LAW FIRM CONSULTANT [address] [place] [address] Status Reason Specialty Diagnoses / Procedures Referred By Contact Referred To Contact New Request CORPORATE RISK ANALYST Diagnoses Menorrhagia with regular cycle Lana Lombardi, BIOFUELS PRODUCT MANAGER-LAW FIRM CONSULTANT [address] [place] [id number] Susie Sheldon, DO [address] [place] [id number] Status Reason Specialty Diagnoses / Procedures Referred By Contact Referred To Contact New Request Procedures ECG Lana Lombardi BIOFUELS PRODUCT MANAGER-LAW FIRM CONSULTANT [address] [place] [id number] Status Reason Specialty Diagnoses / Procedures Referred By Contact Referred To Contact Schedule Outgoing - Transfer of Care Psychiatry Diagnoses Post-traumatic stress Lana Lombardi BIOFUELS PRODUCT MANAGER-LAW FIRM CONSULTANT [address] [phone] Specialty Diagnoses / Procedures Referred By Contac t Referred To Contact Radiology Diagnoses Encounter for screening for malignant neoplasm of breast, unspecified screening modality Procedures Mammography Screening Emile Bilateral Priya Jorge, LAW FIRM CONSULTANT [address] [place] [address] Referral ID Status Reason Start Date Expiration Date V isits Requested Visits Authorized [id number] Authorized 09/10/2021 09/10/2022 1 1 Specialty Diagnoses / Procedures Referred By Contac t Referred To Contact Radiology Diagnoses Mass of right breast, unspecified quadrant Procedures US Breast Biopsy Right Ashley Riddle III, MD [address] [place] [address] Referral ID Status Reason Start Date Expiration Date V isits Requested Visits Authorized [id number] New Request 09/21/2021 09/21/2022 1 1 Specialty Diagnoses / Procedures Referred By Contac t Referred To Contact Radiology Diagnoses Discharge from right nipple Procedures Mammography Diagnostic Emile Bilateral Ariana Garza PA-C [address] [place] [address] Referral ID Status Reason Start Date Expiration Date V isits Requested Visits Authorized [id number] Authorized 04/01/2023 03/31/2024 1 1 Specialty Diagnoses / Procedures Referred By Contac t Referred To Contact Radiology Diagnoses Discharge from right nipple Procedures US Breast Right Complete Ariana Garza PA-C [address] [place] [address] Referral ID Status Reason Start Date Expiration Date V isits Requested Visits Authorized [id number] New Request 04/01/2023 03/31/2024 1 1 Specialty Diagnoses / Procedures Referred By Contac t Referred To Contact Genetics Diagnoses Family history of breast cancer Ashley Riddle III, MD [address] [place] [id number] [facility] [place] Referral ID Status Reason Start Date Expiration Date V isits Requested Visits Authorized [id number] Authorized 05/14/2023 05/13/2024 1 1 Specialty Diagnoses / Procedures Referred By Contac t Referred To Contact Radiology Diagnoses Nipple discharge Family history of breast cancer in first degree relative Procedures MR Breast Bilateral With And Without Contrast Ashley Riddle III, MD [address] [place] [address] Referral ID Status Reason Start Date Expiration Date V isits Requested Visits Authorized [id number] New Request 05/14/2023 05/13/2024 1 1 Specialty Diagnoses / Procedures Referred By Contac t Referred To Contact Radiology Procedures MR Breast Core Biopsy Right Ashley Riddle III, MD [address] [place] [address] Referral ID Status Reason Start Date Expiration Date V isits Requested Visits Authorized [id number] Pending Review 06/18/2023 06/17/2024 1 1 Specialty Diagnoses / Procedures Referred By Contac t Referred To Contact Radiology Procedures US Breast Biopsy Right Ashley Riddle III, MD [address] [place]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
== END 2024-01-20 19:22 | disposition home or self-care (01) ==
LOC: LAB 19:21
PROVIDERS: Visit Provider Obstetrics & Gynecology
DX: Z01.419 Encounter for gynecological examination (general) (routine) without abnormal findings (principal)
CPT/HCPCS: 87624; 88175

== ENCOUNTER 2024-01-29 12:27 | Outpatient (OUT) | payer BC, SELFPAY ==
--- NOTE | 2024-01-29 12:42 | ECG_ITS ---
[facility] Test Date: 2024-01-29 Pat Name: LELE MONTOYA Department: Room: - Gender: Female Corrections Nurse: : 1985 Requested By: LIDYA FUNEZ Order Number: [id number] Reading MD: CHARO STOLL Measurements Intervals [place] Rate: 66 P: 20 MS: 163 QRS: 1 QRSD: 108 T: 21 QT: 428 QTc: 450 Interpretive Statements SINUS RHYTHM No previous ECG available for comparison Electronically Signed On 01-29-2024 19:51:49 EDT by CHARO STOLL
== END 2024-01-29 12:28 | disposition home or self-care (01) ==
LOC: PST 12:28
PROVIDERS: Visit Provider Obstetrics & Gynecology
DX: Z01.810 Encounter for preprocedural cardiovascular examination (principal); R93.89 Abnormal findings on diagnostic imaging of other specified body structures; N85.2 Hypertrophy of uterus; R10.2 Pelvic and perineal pain; N93.9 Abnormal uterine and vaginal bleeding, unspecified
CPT/HCPCS: 93005

== ENCOUNTER 2024-02-13 07:42 | Day surgery (SDC) | payer BC, SELFPAY ==
[2024-01-29 12:59] VITALS: BP 137/88; PULSE 77; TEMP 36.4; O2SAT 98; BMI 52.5
[2024-02-13] VITALS (14 sets, daily range): BP systolic 117–157; BP diastolic 67–103; PULSE 66–86; TEMP 36.2–36.8; O2SAT 91–97; BMI 52.5
--- OUTSIDE RECORDS SUMMARY | 2024-02-13 07:47 | XMS_ITS | CCD ---
Author Organization [facility] Care Team Providers Care Engraver Tender Name Role Phone Jose Manuel Falcon Unavailable No, Physician Primary Care Provider Unavailabl e NO, PHYSICIAN Primary Care Unavailable YASMIN BROWN Attending Unavail able YASMIN BROWN Admitting Unavail able YASMIN BROWN Referring Unavail able NO, PHYSICIAN Primary Care Unavailable Lana Lombardi Primary Care Provider Maikel Leal Primary Care Provider [phone] ROXIE HUSSEIN Attending Unavailabl e MAIKEL LEAL Primary Care Unavailable GUSTAVO, PHYSICIAN Primary Care Unavailable SAMUEL MONTERO Attending Unavail able Maikel Leal MD Primary Care Provider Love Jimenez CNP Unavailable Maikel Leal MD Primary Care Provider Love Jimenez CNP Unavailable Elisha Fuentes RN Unavailable Unavailable Love Jimenez CNP Unavailable [phone] Ariana Garza PA-C Primary Care Provide r Love Jimenez CNP Unavailable Love Jimenez CNP Unavailable Ariana Garza PA-C Primary Care Provide r Ariana Garza PA-C Primary Care Provide r Klaudia Marley RN Unavailable Unavailable CATRACHITO CUBA Referring Unavailab ARIANA Jose Primary Care Unavailab le CONNIFF, ARIANA LEON Attending Unavailab le CONNIFF, ARIANA LEON Primary Care Unavailab le CONNIFF, ARIANA LEON Attending Unavailab le VENKATESH III, ASHLEY FOWLER Referring Unav ailable VENKATESH III, ASHLEY FOWLER Referring Unav ailable CONNIFF, ARIANA LEON Primary Care Unavailab le CONNIFF, ARIANA LEON Attending Unavailab Love Moyer CNP Unavailable [phone] CONNIFF, ARIANA LEON Primary Care Unavailab le VENKATESH III, ASHLEY FOWLER Attending Unav ailable VENKATESH III, ASHLEY FOWLER Referring Unav ailable CONNIFF, ARIANA LEON Primary Care Unavailab le CONNIFF, ARIANA LEON Primary Care Unavailab le KUMPF II, TRACY VALLES Attending Unavailable KUMPF II, TRACY VALLES Referring Unavailable CONNIFF, ARIANA LEON Primary Care Unavailab le CONNIFF, ARIANA LEON Referring Unavailab le CONNIFF, ARIANA LEON Primary Care Unavailab le CONNIFF, ARIANA LEON Attending Unavailab le CONNIFF, ARIANA LEON Primary Care Unavailab le CONNIFF, ARIANA LEON Attending Unavailab le CONNIFF, ARIANA LEON Referring Unavailab le KUMPF II, TRACY VALLES Attending Unavailable CONNIFF, ARIANA LEON Primary Care Unavailab le CONIGYNICOLE Attending Unavailable CONNIFF, ARIANA LEON Primary Care Unavailab le CONNIFF, ARIANA LEON Referring Unavailab le CONNIFF, ARIANA LEON Admitting Unavailab le CONNIFF, ARIANA LEON Primary Care Unavailab le KUMPF II, TRACY VALLES Attending Unavailable CONNIFF, ARIANA LEON Primary Care Unavailab le KUMPF II, TRACY VALLES Attending Unavailable CONNIFF, ARIANA LEON Referring Unavailab le CONNIFF, ARIANA LEON Primary Care Unavailab le KUMPF II, TRACY VALLES Attending Unavailable CONNIFF, ARIANA LEON Primary Care Unavailab le CONNIFF, ARIANA LEON Attending Unavailab le CONNIFF, ARIANA LEON Primary Care Unavailab le CONNIFF, ARIANA LEON Attending Unavailab le CONNIFF, ARIANA LEON Primary Care Unavailab le CONNIFF, ARIANA LEON Attending Unavailab ASHLEY Sky III Attending Unav ailable KAYLA, ARIANA LEON Primary Care Unavailab le STEPHANIEIFF, ARIANA LEON Referring Unavailab le CONNIFF, ARIANA LEON Attending Unavailab le CONNIFF, ARIANA LEON Primary Care Unavailab le Hétcor DO, Hawk R Unavailable Alyssa Prakash CNP Unavailable [phone] Sasha Alcala Attending Unavailable Héctor, Hawk Referring Unavailable HÉCTOR, HAWK Attending Unavailable HÉCTOR, HAWK Attending Unavailable HÉCTOR, HAWK Attending Unavailable KAYLA, ARIANA LEON Primary Care Unavailab le ALYSSA PRAKASH Attending Unavailable ALYSSA PRAKASH Attending Unavailable Unavailable Primary Care Provider Unavailabl e Allergies Allergy Classification Reported Allergen(s) Allergy Type Date of Onset Reaction(s) Facility NSAIDs (1 source) Ibuprofen Drug Allergy 9 GI Intolerance (20 sources) Ibuprofen; Translations: [Unknown] Drug Allergy 8 Nausea and Vomiting, GI Intolerance [facility] Work Phone: (20 sources) bee venom Propensity to adverse reactions to drug 9 Anaphylaxis [facility] (5 sources) BEE VENOM PROTEIN (HONEY BEE); Translations: [BEE VENOM PROTEIN (HONEY BEE)] Propensity to adverse reactions to drug (disorder) 9 [facility] Repository (1 source) Ibuprofen Drug Allergy 4 [facility] Repository (1 source) Honey bee venom Propensity to adverse reactions 9 Anaphylaxis [facility] Work Phone: Medications Current Medications Medication Drug Class(es) Dates [...] Active Start: 01-23-2023 take 1 tablet by [facility] three times daily as needed baclofen 5 [...] mg / trimethoprim 160 mg oral tablet (3 sources) Dihydrofolate Reductase Inhibitor Antibacterial, Sulfonamide Antimicrobial Start: 01-12-2024 take 1 tablet by mouth once in the morning, then take 1 tablet by mouth once at bedtime sulfamethoxazole-trimethoprim (Bactrim DS) 800-160 MG per tablet Take 1 tablet by mouth in the morning and 1 tablet before bedtime. 01/12/2024 Active Start: 01-12-2024 End: 01-22-2024 take 1 tablet [...] / neomycin 3.5 mg/ml / polymyxin b 01771 unt/ml ophthalmic suspension (1 source) Aminoglycoside Antibacterial, Polymyxin-class Antibacterial, Corticosteroid Start: 05-07-2019 End: 06-10-2019 take 1 drop(s) into the eye(s) every four hours dgcgxbzj-harlplixu-rqyeddlvcqlxs 3.5-15673-1.[address] 1 drop in both eyes every 4 hours while awake. 5 mL 0 05/07/2019 06/10/2019 Discontinued 30 ml EPINEPHrine 0.005 mg/ml / lidocaine hydrochloride 10 mg/ml injection (1 source) Antiarrhythmic, alpha-Adrenergic Agonist, beta-Adrenergic Agonist, Catecholamine, Amide Local Anesthetic Start: 03-18-2018 End: 03-18-2018 lidocaine-epinephrine 1%-1:2 80284 injection SOLN 10 mL Start: 03-18-2018 End: 03-18-2018 lidocaine-epinephrine 1%-1:2 85379 injection SOLN 10 mL lidocaine 0.05 mg/mg [...] Test Name Value Interpretation Reference Range Facility IGP,APTIMA HPV,AGE GDLNon AGE GDLN ACOG TESTING Note . [facility] Comment on above: TESTS RESULT FLAG UN ITS REF RANGE LAB Clinician Provided Cytology Information Source.............Cervix;Endocervix No. of containers..01 ThinPrep Vial Age Algo ACOG Drea... 30-65 01 FLAG LEGEND: L-Low Normal,H-High Normal,LL-Alert Low,HH-Alert High <-Panic Low,>-Panic High,A-Abnormal,AA-Critical Abnormal Performed at: 01 =G [facility] [employer] [place] [address] Vianney Rod MD, HPV APTIMA Negative Negative [facility] Comment on above: This nucleic acid am plification test detects fourteen high- risk HPV types (16,18,31,33,35,39,45,51,52,56,58,59,66,68) without differentiation. Performed at: =G [facility] [id number] Head Banquet Waitress: Vianney Rod MD, Phone: [phone] Performed at: - [facility] [address], [place] [id number] Head Banquet Waitress: Vianney Rod MD, Phone: [phone] IGP, APTIMA HPV, RFX 16/18,45 Note . [facility] Comment on above: TESTS RESULT FLAG UN ITS REF RANGE LAB DIAGNOSIS: 02 NEGATIVE FOR INTRAEPITHELIAL LESION OR MALIGNANCY. Specimen adequacy: 02 Satisfactory for evaluation. No endocervical component is identified. Performed by: Trish Hermosillo, Perfect Binder Setter ([facility]) . 02 Note: Note 02 The Pap smear is a screening test designed to aid in the detection of premalignant and malignant conditions of the uterine cervix. It is not a diagnostic procedure and should not be used as the sole means of detecting cervical cancer. Both false-positive and false-negative reports do occur. Test Methodology: Note 02 This liquid based ThinPrep(R) pap test was screened with the use of an image guided system. HPV Genotype Reflex Note 02 Criteria not met, HPV Genotype not performed. FLAG LEGEND: L-Low Normal,H-High Normal,LL-Alert Low,HH-Alert High <-Panic Low,>-Panic High,A-Abnormal,AA-Critical Abnormal Performed at: 02 [facility] [address] [place] [address] Vianney Rod MD, BRUSH-SPATULA CERVIX ENDOCERVIX [facility] BODY FLUID AEROBIC CULTUREon 01-12-2024 BODY FLUID AEROBIC CULTURE AEROBIC CULTURE No Growth after 5 days GRAM STAIN RESULT WBC This is a corrected result. Previous result was Many WBC No Organisms Seen Normal [facility] Comment on above: Performed By: #### 4 [id number] #### [facility] [address] [address] Javier Santana M.D. [id number] Plastic Surgery Visit Report on 12-31-2023 Plastic Surgery Visit Report [facility] [address] [place], [place] [id number] OFFICE VISIT Date of Service: 12/31/23 MR#: [id number] Acct: [id number] Name: LELE LEON Rep #: [id number] : 1985 Provider: Dr. Sasha abdi MD Age/Sex: 38/F Location: [facility] Status: Signed Intake Vital Signs 12/31/23 [...] consult due to cyst in breast, painful [facility] Medical History (Updated 12/31/23 @ 12:40 by [...] her to their in-house plastic surgeon at [place]. She underwent a needle biopsy of the [...] I had (more content not included)... Normal [facility] CBC WITH AUTO DIFFERENTIALon 10-17-2023 AUTO NRBC 0.0 % Normal [facility] Comment on above: Performed By: #### L [id number] #### [facility] [address] [address] Tenisha Vizcarra M.D. [id number] AUTO NRBC ABS COUNT 0.00 K/mcL Normal 0.00-0.00 [facility] Comment on above: Performed By: #### L [id number] #### [facility] [address] [place], [place] [address] Tenisha Vizcarra M.D. [id number] BASOPHILS ABSOLUTE COUNT 0.04 K/mcL Normal 0.00-0.30 [facility] Comment on above: Performed By: #### L [id number] #### [facility] [address] [place], [place] [address] Tenisha Vizcarra M.D. [id number] Basophils/100 WBC (Bld) 0.5 % Normal [facility] Comment on above: Performed By: #### L [id number] #### [facility] [address] [address] Tenisha Vizcarra M.D. [id number] Eosinophils (Bld) [#/Vol] 0.14 10*3/uL Normal 0.00-0.50 [facility] Comment on above: Performed By: #### L [id number] #### [facility] [address] [address]Trish Vizcarra M.D. [id number] Eosinophils/100 WBC (Bld) 1.7 % Normal [facility] Comment on above: Performed By: #### L [id number] #### [facility] [address] [address] Tenisha Vizcarra M.D. [id number] Erythrocyte distribution width (RBC) [Ratio] 14.2 % Normal 11.6-14.8 [facility] Comment on above: Performed By: #### L [id number] #### [facility] [address] [address] Tenisha Vizcarra M.D. [id number] Hematocrit (Bld) [Volume fraction] 40.2 % Normal 36.0-46.0 [facility] Comment on above: Performed By: #### L [id number] #### [facility] [address] [address] Tenisha Vizcarra M.D. [id number] Hemoglobin (Bld) [Mass/Vol] 13.2 g/dL Normal 12.0-16.0 [facility] Comment on above: Performed By: #### L [id number] #### [facility] [address] [address] Tenisha Vizcarra M.D. [id number] IG ABSOLUTE 0.03 K/mcL Normal 0.00-0.30 [facility] Comment on above: Performed By: #### L [id number] #### [facility] [address] [address] Tenisha Vizcarra M.D. [id number] IG PERCENT 0.40 % Normal [facility] Comment on above: Result Comment: The IG parameter is the percentage of metamyelocytes, myelocytes and promyelocytes. An immature granulocyte count (IG) of 1% or more suggests the possibility of infection, an IG count of 3% is very likely related to an infection. Performed By: #### L [id number] #### [facility] [address] [address] Tenisha Vizcarra M.D. [id number] Lymphocytes (Bld) [#/Vol] 2.38 10*3/uL Normal 0.90-4.00 [facility] Comment on above: Performed By: #### L [id number] #### [facility] [address] [address] Tenisha Vizcarra M.D. [id number] Lymphocytes/100 WBC (Bld) 29.5 % Normal [facility] Comment on above: Performed By: #### L [id number] #### [facility] [address] [address] Tenisha Vizcarra M.D. [id number] MCH (RBC) [Entitic mass] 29.6 pg Normal 26.0-34.0 [facility] Comment on above: Performed By: #### L [id number] #### [facility] [address] [address] Tenisha Vizcarra M.D. [id number] MCV (RBC) [Entitic vol] 90.1 fL Normal 80.0-100.0 [facility] Comment on above: Performed By: #### L [id number] #### [facility] [address] [address] Tenisha Vizcarra M.D. [id number] MEAN CORPUSCULAR HEMOGLOBIN CONC 32.8 g/dL Normal 31.0-37.0 [facility] Comment on above: Performed By: #### L [id number] #### [facility] [address] [address] Tenisha Vizcarra M.D. [id number] Monocytes (Bld) [#/Vol] 0.57 10*3/uL Normal 0.30-0.90 [facility] Comment on above: Performed By: #### L [id number] #### [facility] [address] [address] Tenisha Vizcarra M.D. [id number] Monocytes/100 WBC (Bld) 7.1 % Normal [facility] Comment on above: Performed By: #### L [id number] #### [facility] [address] [address] Tenisha Vizcarra M.D. [id number] NEUTROPHILS ABSOLUTE COUNT 4.91 K/mcL Normal 1.70-7.00 [facility] Comment on above: Performed By: #### L [id number] #### [facility] [address] [place], [place] [address] Tenisha Vizcarra M.D. [id number] Neutrophils/100 WBC (Bld) 60.8 % Normal [facility] Comment on above: Performed By: #### L [id number] #### [facility] [address] [place], [place] [address] Tenisha Vizcarra M.D. [id number] Platelet mean volume (Bld) [Entitic vol] 10.6 fL Normal 9.4-12.4 [facility] Comment on above: Performed By: #### L [id number] #### [facility] [address] [place], [place] [address] Tenisha Vizcarra M.D. [id number] Platelets (Bld) [#/Vol] 371 10*3/uL Normal 150-400 [facility] Comment on above: Performed By: #### L [id number] #### [facility] [address] [place], [place] [address] Tenisha Vizcarra M.D. [id number] RBC (Bld) [#/Vol] 4.46 10*6/uL Normal 4.00-5.20 [facility] Comment on above: Performed By: #### L [id number] #### [facility] [address] [place], [place] [address] Tenisha Vizcarra M.D. [id number] WBC (Bld) [#/Vol] 8.07 10*3/uL Normal 4.50-11.00 [facility] Comment on above: Performed By: #### L [id number] #### [facility] [address] [place], [place] [address] Tenisha Vizcarra M.D. [id number] COMPREHENSIVE METABOLIC PANE [place] 10-17-2023 Albumin [Mass/Vol] 3.8 g/dL Normal 3.2-5.2 [facility] Comment on above: Order Comment: [facility] has implemented the eGFR calculation approach that does not have a coefficient for race that conforms to the NKF-ASN Task Force Recommendations. Performed By: #### 4 [id number] #### [facility] [address], [place] [address] Tenisha Vizcarra M.D. [id number] ALP [Catalytic activity/Vol] 81 U/L Normal 40-140 [facility] Comment on above: Order Comment: [facility] has implemented the eGFR calculation approach that does not have a coefficient for race that conforms to the NKF-ASN Task Force Recommendations. Performed By: #### 4 [id number] #### [facility] [address] [address] Tenisha Vizcarra M.D. [id number] ALT [Catalytic activity/Vol] 15 U/L Normal 0-35 U/L [facility] Comment on above: Order Comment: [facility] has implemented the eGFR calculation approach that does not have a coefficient for race that conforms to the NKF-ASN Task Force Recommendations. Performed By: #### 4 [id number] #### [facility] [address] [place], [place] [address] Tenisha Vizcarra M.D. [id number] Anion gap [Moles/Vol] 12 mmol/L Normal 10-20 [facility] Comment on above: Order Comment: [facility] has implemented the eGFR calculation approach that does not have a coefficient for race that conforms to the NKF-ASN Task Force Recommendations. Performed By: #### 4 [id number] #### [facility] [address] [place], [place] [address] Tenisha Vizcarra M.D. [id number] AST [Catalytic activity/Vol] 16 U/L Normal 0-35 U/L [facility] Comment on above: Order Comment: [facility] has implemented the eGFR calculation approach that does not have a coefficient for race that conforms to the NKF-ASN Task Force Recommendations. Performed By: #### 4 [id number] #### [facility] [address], [place] [address] Tenisha Vizcarra M.D. [id number] Bilirubin [Mass/Vol] 0.3 mg/dL Normal 0.0-1.3 [facility] Comment on above: Order Comment: [facility] has implemented the eGFR calculation approach that does not have a coefficient for race that conforms to the NKF-ASN Task Force Recommendations. Performed By: #### 4 [id number] #### [facility] [address], [place] [address] Tenisha Vizcarra M.D. [id number] Calcium [Mass/Vol] 9.2 mg/dL Normal 8.4-10.2 [facility] Comment on above: Order Comment: [facility] has implemented the eGFR calculation approach that does not have a coefficient for race that conforms to the NKF-ASN Task Force Recommendations. Performed By: #### 4 [id number] #### [facility] [address], [place] [address] Tenisha Vizcarra M.D. [id number] Chloride [Moles/Vol] 105 mmol/L Normal 98-108 [facility] Comment on above: Order Comment: [facility] has implemented the eGFR calculation approach that does not have a coefficient for race that conforms to the NKF-ASN Task Force Recommendations. Performed By: #### 4 [id number] #### [facility] [address], [place] [address] Tenisha Vizcarra M.D. [id number] Creatinine [Mass/Vol] 0.66 mg/dL Normal 0.40-1.10 [facility] Comment on above: Order Comment: [facility] has implemented the eGFR calculation approach that does not have a coefficient for race that conforms to the NKF-ASN Task Force Recommendations. Performed By: #### 4 [id number] #### [facility] [address], [place] [address] Tenisha Vizcarra M.D. [id number] EGFR 116 mL/min/1.73 m2 Normal >=60 [facility] Comment on above: Order Comment: [facility] has implemented the eGFR calculation approach that does not have a coefficient for race that conforms to the NKF-ASN Task Force Recommendations. Result Comment: Coco mated GFR was calculated using the 2020 CKD-EPI creatinine equation. Performed By: #### 4 [id number] #### [facility] [address], [place] [address] Tenisha Vizcarra M.D. [id number] Glucose [Mass/Vol] 115 mg/dL High 65-99 [facility] Comment on above: Order Comment: [facility] has implemented the eGFR calculation approach that does not have a coefficient for race that conforms to the NKF-ASN Task Force Recommendations. Performed By: #### 4 [id number] #### [facility] [address] [place], [place] [address] Tenisha Vizcarra M.D. [id number] HCO3 (Bld) [Moles/Vol] 24 mmol/L Normal 21-32 [facility] Comment on above: Order Comment: [facility] has implemented the eGFR calculation approach that does not have a coefficient for race that conforms to the NKF-ASN Task Force Recommendations. Performed By: #### 4 [id number] #### [facility] [address] [place], [place] [address] Tenisha Vizcarra M.D. [id number] Potassium [Moles/Vol] 3.7 mmol/L Normal 3.5-5.1 [facility] Comment on above: Order Comment: [facility] has implemented the eGFR calculation approach that does not have a coefficient for race that conforms to the NKF-ASN Task Force Recommendations. Performed By: #### 4 [id number] #### [facility] [address] [place], [place] [address] Tenisha Vizcarra M.D. [id number] Protein [Mass/Vol] 7.2 g/dL Normal 6.0-8.0 [facility] Comment on above: Order Comment: [facility] has implemented the eGFR calculation approach that does not have a coefficient for race that conforms to the NKF-ASN Task Force Recommendations. Performed By: #### 4 6126 #### [facility] [address] [place], [place] [address] Tenisha Vizcarra M.D. [id number] Sodium [Moles/Vol] 137 mmol/L Normal 135-145 [facility] Comment on above: Order Comment: [facility] has implemented the eGFR calculation approach that does not have a coefficient for race that conforms to the NKF-ASN Task Force Recommendations. Performed By: #### 4 6126 #### [facility] [address] [place], [place] [address] Tenisha Vizcarra M.D. [id number] Urea nitrogen [Mass/Vol] 12 mg/dL Normal 8-25 [facility] Comment on above: Order Comment: [facility] has implemented the eGFR calculation approach that does not have a coefficient for race that conforms to the NKF-ASN Task Force Recommendations. Performed By: #### 4 6126 #### [facility] [address], [place] [address] Tenisha Vizcarra M.D. [id number] Urea nitrogen/Creatinine [Mass ratio] 18.2 mg/mg Normal 10.0-20.0 [facility] Comment on above: Order Comment: [facility] has implemented the eGFR calculation approach that does not have a coefficient for race that conforms to the NKF-ASN Task Force Recommendations. Performed By: #### 4 6126 #### [facility] [address], [place] [address] Tenisha Vizcarra M.D. [id number] HEMOGLOBIN A1Con 10-17-2023 Glucose [Mass/Vol] 126 mg/dL High 74-114 [facility] Comment on above: Performed By: #### 4 8202 #### [facility] [address] [place], [place] [address] Tenisha Vizcarra M.D. [id number] HbA1c (Bld) [Mass fraction] 6.0 % High 4.2-5.6 [facility] Comment on above: Performed By: #### 4 8202 #### [facility] [address] [place], [place] [address] Tenisha Vizcarra M.D. [id number] LIPID PANELon 10-17-2023 Cholesterol [Mass/Vol] 150 mg/dL Normal 100-199 [facility] Comment on above: Performed By: #### 4 6087 #### [facility] [address] [place], [place] [address] Tenisha Vizcarra M.D. [id number] Cholesterol in HDL [Mass/Vol] 37 mg/dL Low 40-59 [facility] Comment on above: Performed By: #### 4 6087 #### [facility] [address] [place], [place] [address] Tenisha Vizcarra M.D. [id number] Cholesterol.total/Ch olesterol in HDL [Mass ratio] 4.1 {ratio} Normal [facility] Comment on above: Result Comment: Fema le Cholesterol/HDL Ratio: Average risk: 4.4 1/2 average risk: 3.3 2 x average risk: 7.1 Performed By: #### 4 6087 #### [facility] [address] [place], [place] [address] Tenisha Vizcarra M.D. [id number] LDL CHOLESTEROL CALCULATED 102 mg/dL Normal 10-130 [facility] Comment on above: Result Comment: [facility] Cholesterol Education Program Guidelines: LDL Cholesterol Optimal: <100 mg/dL Near Optimal/above Optimal: 100-129 mg/dL Borderline High: 130-159 mg/dL High: 160-189 mg/dL Very High: greater than or equal to 190 mg/dL Performed By: #### 4 6087 #### [facility] [address] [place], [place] [address] Tenisha Vizcarra M.D. [id number] NON HDL CHOL 113 mg/dL Normal [facility] Comment on above: Result Comment: [facility] Cholesterol Education Program Guidelines: NON HDL Cholesterol Desirable: <130 mg/dL Borderline High: 130-159 mg/dL High: 160-189 mg/dL Very High: > or = 190 mg/dL Performed By: #### 4 6087 #### [facility] [address] [place], [place] [address] Tenisha Vizcarra M.D. [id number] Triglyceride [Mass/Vol] 57 mg/dL Normal 30-150 [facility] Comment on above: Performed By: #### 4 6087 #### [facility] [address] [place], [place] [address] Tenisha Vizcarra M.D. [id number] US BREAST RIGHT LIMITEDon US BREAST RIGHT [...] 17, 2023 2:59:17 PM EDT Finalized by: PNACHO POST on FriOct 17, 2023 5:25:41 PM EDT Normal [facility] Comment on above: Order Comment: [employer] in [place]. Injury/Trauma or Illness?:Illness/Other How long have you had these symptoms (acute/chronic)?:Unknown Reason for exam?:mastitis Type of Exam?:Subsequent/Follow-up Additional signs and symptoms?:none MM FOLLOW UP POST CLIP PLACE [facility] 07-01-2023 MM FOLLOW UP POST CLIP PLACEMENT [...] mammogram. Code ZW - Awaiting further pathology. DSS/[facility] Workstation ID: [id number] Addended: FriJul 03, 2023 9:22 AM by Catrachito Cuba MD ADDENDUM: Pathology - Right breast, 1 o'clock zone A, ultrasound-guided core biopsy: Actively inflamed duct compatible with mastitis. Pathology results are concordant with the imaging findings. [facility] Workstation ID: [id number] Dictated by: CATRACHITO CUBA Transcribed by: DANIEL CALLAWAY on FriJul 01, 2023 9:21:59 AM EST Finalized by: CATRACHITO CUBA on FriJul 01, 2023 9:57:03 AM EST Normal [facility] US BREAST BIOPSY RIGHTon US BREAST [...] results are concordant with the imaging findings. [facility] Workstation ID: [id number] Dictated by: CATRACHITO CUBA on FriJul 01, 2023 8:44:54 AM EST Transcribed by: DANIEL CALLAWAY on FriJul 01, 2023 9:21:59 AM EST Finalized by: CATRACHITO CUBA on FriJul 01, 2023 9:57:03 AM EST Normal [facility] Comment on above: Order Comment: Injur [...] results are concordant with the imaging findings. [facility] Workstation ID: [id number] Dictated by: CATRACHITO CUBA on FriJul 01, 2023 8:44:54 AM EST Transcribed by: DANIEL CALLAWAY on FriJul 01, 2023 9:21:59 AM EST Finalized by: CATRACHITO CUBA on FriJul 01, 2023 9:57:03 AM EST Normal [facility] MR BREAST BILATERAL WITH AND WITHOUT [...] Dotarem intravenously administered in a single dosage. Sepior CAD utilized in the interpretation of this [...] FriJun 18, 2023 8:38:37 AM EST Normal [facility] Comment on above: Order Comment: Injur [...] sent to the patient regarding the results. [facility] Workstation ID: [id number] Dictated by: NAEL MCRCAY on FriApr 11, 2023 2:41:42 PM EST Transcribed by: LAVERNE JALLOH on FriApr 11, 2023 4:07:44 PM EST Finalized by: NAEL MCCRAY on FriApr 11, 2023 4:35:14 PM EST Normal [facility] US BREAST BILAT LIMITEDon US BREAST [...] sent to the patient regarding the results. [facility] Workstation ID: [id number] Dictated by: NAEL MCCRAY on FriApr 11, 2023 2:41:42 PM EST Transcribed by: LAVERNE JALLOH on FriApr 11, 2023 4:07:44 PM EST Finalized by: NAEL MCCRAY on FriApr 11, 2023 4:35:14 PM EST Normal [facility] Comment on above: Order Comment: Injur [...] [id number] Dictated by: LEE DEL TORO on Sat Dec 09, 2020 2:40:07 AM EDT Transcribed by: LEE DEL TORO on Sat Dec 09, 2020 2:40:07 AM EDT Finalized by: LEE DEL TORO on Sat Dec 09, 2020 2:40:07 AM EDT Normal [facility] Comment on above: Order Comment: Injur [...] 2. No biliary duct dilatation or gallstones. [employer] Workstation ID: [id number] Dictated by: BEBA FRANK on [facility] Dec 09, 2020 3:02:22 AM EDT Transcribed by: KWAKU JALLOH on [facility] Dec 09, 2020 5:26:22 AM EDT Finalized by: BEBA FRANK on [facility] Dec 09, 2020 6:43:30 AM EDT Normal [facility] Comment on above: Order Comment: Ga llbladder Injury/Trauma or Illness?:Illness/Other How long have you had these symptoms (acute/chronic)?:Acute Reason for exam?:ruq pain; nausea; vomiting History of cancer?:na Surgeries, chemotherapy, or radiation?:na Type of Exam?:Ongoing CT DATED TODAY Additional signs and symptoms?:NONE CT SPINE LUMBAR WITHOUT CONT [facility] 12-06-2019 CT SPINE LUMBAR WITHOUT CONTRAST EXAMINATION: [...] secondary to a diffuse disc bulge. Normal [facility] CT SPINE THORACIC WITHOUT CO NTRASTon [...] appear clear. IMPRESSION: No acute findings. Normal [facility] CT SPINE LUMBAR WITHOUT CONT [facility] 12-05-2019 IMPRESSION: 1. No acute fracture or dislocation of the lumbar spine is seen. 2. There is mild to moderate right and mild left neural foraminal narrowing at L4-L5 secondary to a diffuse disc bulge. [facility] [employer] EXAMINATION: CT SPIN E LUMBAR WITHOUT CONTRAST [...] to be any significant spinal canal stenosis. [facility] User, Interfaces 12/05/2019 11:48 PM EDT EXAMINATION: [...] L4-L5 secondary to a diffuse disc bulge. [employer] CT SPINE THORACIC WITHOUT CO NTRASTon 12-05-2019 IMPRESSION: No acute findings. [employer] EXAMINATION: CT SPIN E THORACIC WITHOUT CONTRAST [...] Imaged portions of the lungs appear clear. [employer] User, Interfaces - 12/05/2019 11:39 PM EDT [...] appear clear. IMPRESSION IMPRESSION: No acute findings. [employer] CBCon 06-25-2019 ABSOLUTE BAS 0.1 10*3/uL Normal 0.0-0.2 [facility] Comment on above: Performed By: #### A CBC #### Testing performed at [address] [place] [address] ABSOLUTE EOS 0.10 10*3/uL Normal 0.0-0.7 [facility] Comment on above: Performed By: #### A CBC #### Testing performed at [address] [place] [address] ABSOLUTE NEUTROPHIL COUNT 6.1 10*3/uL Normal 1.4-6.5 [facility] Comment on above: Performed By: #### A CBC #### Testing performed at [address] [place] [address] Basophils/100 WBC (Bld) 0.7 % Normal 0.0-2.0 [facility] Comment on above: Performed By: #### A CBC #### Testing performed at [address] [place] [address] DTYPE AUTO DIFF Normal [facility] Comment on above: Performed By: #### A CBC #### Testing performed at [address] [place] [address] Eosinophils/100 WBC (Bld) 1.4 % Normal 0.0-11.0 [facility] Comment on above: Performed By: #### A CBC #### Testing performed at [address] [place] [address] Lymphocytes (Bld) [#/Vol] 2.40 10*3/uL Normal 1.2-3.4 [facility] Comment on above: Performed By: #### A CBC #### Testing performed at [address] [place] [address] Lymphocytes/100 WBC (Bld) 26.2 % Normal 20.0-55.0 [facility] Comment on above: Performed By: #### A CBC #### Testing performed at [address] [address] Monocytes (Bld) [#/Vol] 0.6 10*3/uL Normal 0.0-0.7 [facility] Comment on above: Performed By: #### A CBC #### Testing performed at [address] [address] Monocytes/100 WBC (Bld) 6.1 % Normal 0.0-10.0 [facility] Comment on above: Performed By: #### A CBC #### Testing performed at [address] [address] Neutrophils/100 WBC (Bld) 65.6 % Normal 37.0-75.0 [facility] Comment on above: Performed By: #### A CBC #### Testing performed at [address] [address] Erythrocyte distribution width (RBC) [Ratio] 15.5 % High 11.5-14.5 [facility] Comment on above: Performed By: #### A CBC #### Testing performed at [address] [address] Hematocrit (Bld) [Volume fraction] 41.4 % Normal 36.0-48.0 [facility] Comment on above: Performed By: #### A CBC #### Testing performed at [address] [address] Hemoglobin (Bld) [Mass/Vol] 14.1 g/dL Normal 12.0-16.0 [facility] Comment on above: Performed By: #### A CBC #### Testing performed at [address] [address] MCH (RBC) [Entitic mass] 30.9 pg Normal 26.0-35.0 [facility] Comment on above: Performed By: #### A CBC #### Testing performed at [address] [address] MCHC (RBC) [Mass/Vol] 34.1 g/dL Normal 27.0-37.0 [facility] Comment on above: Performed By: #### A CBC #### Testing performed at [address] [address] MCV (RBC) [Entitic vol] 90.4 fL Normal 80.0-100.0 [facility] Comment on above: Performed By: #### A CBC #### Testing performed at [address] [address] Platelet mean volume (Bld) [Entitic vol] 8.2 fL Normal 7.4-11.0 [facility] Comment on above: Performed By: #### A CBC #### Testing performed at [address] [address] Platelets (Bld) [#/Vol] 350 10*3/uL Normal 130.0-400.0 [facility] Comment on above: Performed By: #### A CBC #### Testing performed at [address] [address] RBC (Bld) [#/Vol] 4.58 10*6/uL Normal 4.0-5.4 [facility] Comment on above: Performed By: #### A CBC #### Testing performed at [address] [address] WBC (Bld) [#/Vol] 9.3 10*3/uL Normal 3.6-11.0 [facility] Comment on above: Performed By: #### A CBC #### Testing performed at [address] [address] CBC, EDIF, [employer] 2019 ABSOLUTE BASOPHIL COUNT 0.1 10*3/uL 0 - 0.2 10*3/uL [facility] Basophils/100 WBC (Bld) 0.7 % 0 - 2 % [facility] Differential cell count method Nom (Bld) AUTO DIFF % [facility] Eosinophils (Bld) [#/Vol] 0.10 10*3/uL 0 - 0.7 10*3/uL [facility] Eosinophils/100 WBC (Bld) 1.4 % 0 - 11 % [facility] Erythrocyte distribution width (RBC) [Ratio] 15.5 % High 11.5 - 14.5 % [facility] Hematocrit (Bld) [Volume fraction] 41.4 % 36 - 48 % [facility] Hemoglobin (Bld) [Mass/Vol] 14.1 g/dL [facility] Interpretation and review of laboratory results Abnormal [facility] Lymphocytes (Bld) [#/Vol] 2.40 10*3/uL 1.2 - 3.4 10*3/uL [facility] Lymphocytes/100 WBC (Bld) 26.2 % 20 - 55 % [facility] MCH (RBC) [Entitic mass] 30.9 pg 26 - 35 PG [facility] MCHC (RBC) [Mass/Vol] 34.1 g/dL [facility] MCV (RBC) [Entitic vol] 90.4 fL [facility] Monocytes (Bld) [#/Vol] 0.6 10*3/uL 0 - 0.7 10*3/uL [facility] Monocytes/100 WBC (Bld) 6.1 % 0 - 10 % [facility] Neutrophils (Bld) [#/Vol] 6.1 10*3/uL 1.4 - 6.5 10*3/uL [facility] Neutrophils/100 WBC (Bld) 65.6 % 37 - 75 % [facility] Platelet mean volume (Bld) [Entitic vol] 8.2 fL [facility] Platelets (Bld) [#/Vol] 350 10*3/uL 130 - 400 10*3/uL [facility] RBC (Bld) [#/Vol] 4.58 10*6/uL 4 - 5.4 10*6/uL [facility] WBC (Bld) [#/Vol] 9.3 10*3/uL 3.6 - 11 10*3/uL [facility] CMP FASTINGon 06-25-2019 A:G RATIO 1.3 RATIO Normal 1.3-2.2 [facility] Comment on above: Performed By: #### A CBC #### Testing performed at [address] [address] Albumin [Mass/Vol] 4.5 G/dl Normal 3.5-5.0 [facility] Comment on above: Performed By: #### A CBC #### Testing performed at [address] [address] ALP [Catalytic activity/Vol] 76 U/L Normal 38-126 [facility] Comment on above: Performed By: #### A CBC #### Testing performed at [address] [address] ALT [Catalytic activity/Vol] 32 U/L Normal 9-52 [facility] Comment on above: Performed By: #### A CBC #### Testing performed at [address] [address] AST [Catalytic activity/Vol] 23 U/L Normal 14-36 [facility] Comment on above: Performed By: #### A CBC #### Testing performed at [address] [address] Bilirubin [Mass/Vol] 0.3 mg/dL Normal 0.2-1.3 [facility] Comment on above: Performed By: #### A CBC #### Testing performed at [address] [address] Calcium [Mass/Vol] 9.2 mg/dL Normal 8.4-10.2 [facility] Comment on above: Performed By: #### A CBC #### Testing performed at [address] [place] [address] Chloride [Moles/Vol] 101 mmol/L Normal 98-107 [facility] Comment on above: Result Comment: Plea se note: Triglyceride levels of 600mg/dL or higher may positively bias chloride results by approximately 2.1 mmol Performed By: #### A CBC #### Testing performed at [address] [place] [address] CO2 [Moles/Vol] 26 mmol/L Normal 22-30 [facility] Comment on above: Performed By: #### A CBC #### Testing performed at [address] [address] Creatinine [Mass/Vol] 0.71 mg/dL Normal 0.7-1.2 [facility] Comment on above: Performed By: #### A CBC #### Testing performed at [address] [address] EST. GFR, >60 Normal [facility] Comment on above: Performed By: #### A CBC #### Testing performed at [address] [address] EST. GFR,Non >60 Normal [facility] Comment on above: Performed By: #### A CBC #### Testing performed at [address] [address] GFR/1.73 sq M predicted among non-blacks MDRD (S/P/Bld) [Vol rate/Area] Average GFR for 30-39 years old = 109. Normal [facility] Comment on above: Result Comment: Citrus Peeler rian Kidney disease, GFR = <60. Kidney failure, GFR = <15. The GFR estimate is not adjusted for extreme body surface area or acute process, nor has it been validated for women or ethnic groups other than and . Performed By: #### A CBC #### Testing performed at [address] [address] Glucose [Mass/Vol] 74 mg/dL Normal 70-100 [facility] Comment on above: Result Comment: NORMAL <100 mg/dL PREDIABETES 101-126 mg/dL DIABETES 126 mg/dL or higher Performed By: #### A CBC #### Testing performed at [address] [address] Potassium [Moles/Vol] 4.0 mmol/L Normal 3.5-5.1 [facility] Comment on above: Performed By: #### A CBC #### Testing performed at [address] [address] Protein [Mass/Vol] 8.1 g/dL Normal 6.3-8.2 [facility] Comment on above: Performed By: #### A CBC #### [place] [address] Sodium [Moles/Vol] 138 mmol/L Normal 137-145 [facility] Comment on above: Performed By: #### A CBC #### [place] [address] Urea nitrogen [Mass/Vol] 17 mg/dL Normal 7-20 [facility] Comment on above: Performed By: #### A CBC #### [place] [address] COMPREHENSIVE METABOLIC PANE Chema 06-25-2019 Albumin [Mass/Vol] 4.5 G/dl 3.5 - 5 G/dl [facility] Albumin/Globulin [Mass ratio] 1.3 {ratio} [facility] ALP [Catalytic activity/Vol] 76 U/L [facility] ALT [Catalytic activity/Vol] 32 U/L [facility] AST [Catalytic activity/Vol] 23 U/L [facility] Bilirubin [Mass/Vol] 0.3 mg/dL [facility] Calcium [Mass/Vol] 9.2 mg/dL [facility] Chloride [Moles/Vol] 101 mmol/L [facility] Comment on above: Please note: Triglyc eride levels of 600mg/dL or higher may positively bias chloride results by approximately 2.1 mmol CO2 [Moles/Vol] 26 mmol/L [facility] Creatinine [Mass/Vol] 0.71 mg/dL [facility] GFR/1.73 sq M predicted among blacks MDRD (S/P/Bld) [Vol rate/Area] mL/min/{1.73_m2} ml/min/1.73sq. m [facility] [employer] GFR/1.73 sq M predicted among non-blacks MDRD (S/P/Bld) [Vol rate/Area] mL/min/{1.73_m2} ml/min/1.73sq. m [facility] [employer] GFR/1.73 sq M predicted among non-blacks MDRD (S/P/Bld) [Vol rate/Area] Average GFR for 30-39 years old = 109. [facility] Comment on above: Chronic Kidney disea se, GFR = <60. Kidney failure, GFR = <15. The GFR estimate is not adjusted for extreme body surface area or acute process, nor has it been validated for women or ethnic groups other than and . Glucose post fast [Mass/Vol] 74 mg/dL [facility] Comment on above: NORMAL <100 mg/dL PREDIABETES 101-126 mg/dL DIABETES 126 mg/dL or higher Potassium [Moles/Vol] 4.0 mmol/L [facility] Protein [Mass/Vol] 8.1 g/dL [facility] Sodium [Moles/Vol] 138 mmol/L [facility] Urea nitrogen [Mass/Vol] 17 mg/dL [facility] CBCon 01-19-2019 ABSOLUTE BAS 0.1 10*3/uL Normal 0.0-0.2 [facility] ABSOLUTE EOS 0.20 10*3/uL Normal 0.0-0.7 [facility] ABSOLUTE NEUTROPHIL COUNT 6.6 10*3/uL High 1.4-6.5 [facility] Basophils/100 WBC (Bld) 0.6 % Normal 0.0-2.0 [facility] DTYPE AUTO DIFF Normal [facility] Eosinophils/100 WBC (Bld) 1.6 % Normal 0.0-11.0 [facility] Lymphocytes (Bld) [#/Vol] 2.80 10*3/uL Normal 1.2-3.4 [facility] Lymphocytes/100 WBC (Bld) 27.1 % Normal 20.0-55.0 [facility] Monocytes (Bld) [#/Vol] 0.6 10*3/uL Normal 0.0-0.7 [facility] Monocytes/100 WBC (Bld) 5.9 % Normal 0.0-10.0 [facility] Neutrophils/100 WBC (Bld) 64.8 % Normal 37.0-75.0 [facility] Erythrocyte distribution width (RBC) [Ratio] 14.5 % Normal 11.5-14.5 [facility] Hematocrit (Bld) [Volume fraction] 41.6 % Normal 36.0-48.0 [facility] Hemoglobin (Bld) [Mass/Vol] 14.4 g/dL Normal 12.0-16.0 [facility] MCH (RBC) [Entitic mass] 31.2 pg Normal 26.0-35.0 [facility] MCHC (RBC) [Mass/Vol] 34.6 g/dL Normal 27.0-37.0 [facility] MCV (RBC) [Entitic vol] 90.1 fL Normal 80.0-100.0 [facility] Platelet mean volume (Bld) [Entitic vol] 8.3 fL Normal 7.4-11.0 [facility] Platelets (Bld) [#/Vol] 305 10*3/uL Normal 130.0-400.0 [facility] RBC (Bld) [#/Vol] 4.62 10*6/uL Normal 4.0-5.4 [facility] WBC (Bld) [#/Vol] 10.2 10*3/uL Normal 3.6-11.0 [facility] CMP FASTINGon 01-19-2019 A:G RATIO 1.1 RATIO Low 1.3-2.2 [facility] Albumin [Mass/Vol] 4.0 G/dl Normal 3.5-5.0 [facility] ALP [Catalytic activity/Vol] 83 U/L Normal 38-126 [facility] ALT [Catalytic activity/Vol] 30 U/L Normal 9-52 [facility] AST [Catalytic activity/Vol] 28 U/L Normal 14-36 [facility] Bilirubin [Mass/Vol] 0.4 mg/dL Normal 0.2-1.3 [facility] Calcium [Mass/Vol] 9.4 mg/dL Normal 8.4-10.2 [facility] Chloride [Moles/Vol] 103 mmol/L Normal 98-107 [facility] Comment on above: Result Comment: Ryan berg note: Triglyceride levels of 600mg/dL or higher may positively bias chloride results by approximately 2.1 mmol CO2 [Moles/Vol] 27 mmol/L Normal 22-30 [facility] Creatinine [Mass/Vol] 0.71 mg/dL Normal 0.7-1.2 [facility] EST. GFR, >60 Normal [facility] EST. GFR,Non >60 Normal [facility] GFR/1.73 sq M predicted among non-blacks MDRD (S/P/Bld) [Vol rate/Area] Average GFR for 30-39 years old = 109. Normal [facility] Comment on above: Result Comment: [employer] rian Kidney disease, GFR = <60. Kidney failure, GFR = <15. The GFR estimate is not adjusted for extreme body surface area or acute process, nor has it been validated for women or ethnic groups other than and . Glucose [Mass/Vol] 106 mg/dL High 70-100 [facility] Comment on above: Result Comment: NORMAL <100 mg/dL PREDIABETES 101-126 mg/dL DIABETES 126 mg/dL or higher Potassium [Moles/Vol] 3.7 mmol/L Normal 3.5-5.1 [facility] Protein [Mass/Vol] 7.6 g/dL Normal 6.3-8.2 [facility] Sodium [Moles/Vol] 139 mmol/L Normal 137-145 [facility] Urea nitrogen [Mass/Vol] 12 mg/dL Normal 7-20 [facility] LIPID PROFILEon 01-19-2019 Cholesterol [Mass/Vol] 149 mg/dL Normal 107-217 [facility] Cholesterol in HDL [Mass/Vol] 33 mg/dL Normal 33-75 [facility] Cholesterol in LDL [Mass/Vol] 106 mg/dL Normal [facility] Cholesterol in VLDL [Mass/Vol] 10 mg/dL Normal 5.0-25 [facility] Cholesterol.total/Ch olesterol in HDL [Mass ratio] 4.52 {ratio} Normal [facility] Comment on above: Result Comment: RISK TOTAL/HDL RATIO MEN WOMEN 1/2 AVERAGE 3.43 3.27 AVERAGE 4.97 4.44 2X AVERAGE 9.55 7.05 3X AVERAGE 23.99 11.04 Triglyceride [Mass/Vol] 50 mg/dL Normal 0-150 [facility] TSH,REFLEX FREE T4on 01-19-2 019 TSH,REFLEX FREE T4 2.420 uIU/ML Normal 0.46-4.68 [facility] XR FOOT RIGHT 3+ VIEWS (ANA MATHEWS)on [...] consideration. 3. No acute fracture or dislocation. [employer] Workstation ID: [id number] Dictated by: BRIT RIVERA on FriOct 13, 2018 11:33:21 AM EDT Transcribed by: ABDIRIZAK FERNANDEZ on FriOct 13, 2018 11:39:27 AM EDT Finalized by: BRIT RIVERA on FriOct 13, 2018 3:49:26 PM EDT Normal [facility] Comment on above: Order Comment: Injur y/Trauma or Illness?:Injury/Trauma How long have you had these symptoms (acute/chronic)?:Acute Reason for exam?:pain History of cancer?:na Surgeries, chemotherapy, or radiation?:na Type of Exam?:Initial Mechanism of injury?:running on treadmill Vital Signs Date Time Vital Sign Value Performing Clinician Facility 01-12-2024 10:02-0400 Body height 157.5 cm Alyssa Prakash [employer] Work Phone: 01-12-2024 10:02-0400 Body mass index (BMI) [Ratio] 53.48 kg/m2 Alyssa Prakash [employer] Work Phone: 01-12-2024 10:02-0400 Body weight 132.63 kg Alyssa Prakash [employer] Work Phone: Comment on above: ACTUAL WEIGHT 08-19-2023 09:00-0400 Diastolic blood pressure 91 mm[Hg] Ariana Conniff PA-C Work Phone: 08-19-2023 09:00-0400 Systolic blood pressure 129 mm[Hg] Ariana Conniff PA-C Work Phone: 08-19-2023 08:38-0400 Body height 157.5 cm Ariana Conniff PA-C Work Phone: 08-19-2023 08:38-0400 Body mass index (BMI) [Ratio] 54.43 kg/m2 Ariana Conniff PA-C Work Phone: 08-19-2023 08:38-0400 Body weight 134.99 kg Ariana Conniff PA-C Work Phone: 08-19-2023 08:38-0400 Heart rate 86 /min Ariana Conniff PA-C Work Phone: 08-19-2023 08:38-0400 SaO2% (BldA) [Mass fraction] 97 % Ariana Conniff PA-C Work Phone: 05-14-2023 10:15-0500 Body height 157.5 cm Ashley Mcdaniel III, MD Work Phone: 05-14-2023 10:15-0500 Body mass index (BMI) [Ratio] 54.29 kg/m2 Ashley Mcdaniel III, MD Work Phone: 05-14-2023 10:15-0500 Body weight 134.63 kg Ashley Mcdaniel III, MD Work Phone: 05-14-2023 10:15-0500 Diastolic blood pressure 83 mm[Hg] Ashley Mcdaniel III, MD Work Phone: 05-14-2023 10:15-0500 Heart rate 95 /min sAhley Mcdaniel III, MD Work Phone: 05-14-2023 10:15-0500 SaO2% (BldA) [Mass fraction] 95 % Ashley Mcdaniel III, MD Work Phone: 05-14-2023 10:15-0500 Systolic blood pressure 139 mm[Hg] Ashley Mcdaniel III, MD Work Phone: 04-01-2023 10:01-0500 Diastolic blood pressure 90 mm[Hg] Ariana Conniff PA-C Work Phone: 04-01-2023 10:01-0500 Systolic blood pressure 128 mm[Hg] Ariana Conniff PA-C Work Phone: 04-01-2023 09:40-0500 Body height 157.5 cm Ariana Conniff PA-C Work Phone: 04-01-2023 09:40-0500 Body mass index (BMI) [Ratio] 53.96 kg/m2 Ariana Conniff PA-C Work Phone: 04-01-2023 09:40-0500 Body weight 133.81 kg Ariana Conniff PA-C Work Phone: 04-01-2023 09:40-0500 Heart rate 96 /min Ariana Conniff PA-C Work Phone: 04-01-2023 09:40-0500 SaO2% (BldA) [Mass fraction] 94 % Ariana Conniff PA-C Work Phone: 01-23-2023 09:44-0400 Body height 157.5 cm Ariana Conniff PA-C Work Phone: 01-23-2023 09:44-0400 Body mass index (BMI) [Ratio] 53.41 kg/m2 Ariana Conniff PA-C Work Phone: 01-23-2023 09:44-0400 Body weight 132.45 kg Ariana Conniff PA-C Work Phone: 01-23-2023 09:44-0400 Diastolic blood pressure 88 mm[Hg] Ariana Conniff PA-C Work Phone: 01-23-2023 09:44-0400 Heart rate 91 /min Ariana Conniff PA-C Work Phone: 01-23-2023 09:44-0400 SaO2% (BldA) [Mass fraction] 98 % Ariana Conniff PA-C Work Phone: 01-23-2023 09:44-0400 Systolic blood pressure 120 mm[Hg] Ariana Conniff PA-C Work Phone: 09-04-2022 09:14-0400 Diastolic blood pressure 80 mm[Hg] Ariana Conniff PA-C Work Phone: 09-04-2022 09:14-0400 Systolic blood pressure 121 mm[Hg] Ariana Conniff PA-C Work Phone: 09-04-2022 08:56-0400 Body height 157.5 cm Ariana Conniff PA-C Work Phone: 09-04-2022 08:56-0400 Body mass index (BMI) [Ratio] 53.22 kg/m2 Ariana Conniff PA-C Work Phone: 09-04-2022 08:56-0400 Body weight 132 kg Ariana Conniff PA-C Work Phone: 09-04-2022 08:56-0400 Heart rate 88 /min Ariana Conniff PA-C Work Phone: 09-04-2022 08:56-0400 SaO2% (BldA) [Mass fraction] 96 % Ariana Conniff PA-C Work Phone: 05-28-2022 10:51-0500 Body height 157.5 cm Ariana Conniff PA-C Work Phone: 05-28-2022 10:51-0500 Body mass index (BMI) [Ratio] 52.86 kg/m2 Ariana Conniff PA-C Work Phone: 05-28-2022 10:51-0500 Body weight 131.09 kg Ariana Conniff PA-C Work Phone: 05-28-2022 10:51-0500 Diastolic blood pressure 69 mm[Hg] Ariana Conniff PA-C Work Phone: 05-28-2022 10:51-0500 Heart rate 92 /min Ariana Conniff PA-C Work Phone: 05-28-2022 10:51-0500 SaO2% (BldA) [Mass fraction] 95 % Ariana Conniff PA-C Work Phone: 05-28-2022 10:51-0500 Systolic blood pressure 139 mm[Hg] Ariana Conniff PA-C Work Phone: 03-05-2022 15:41-0500 Body height 157.5 cm Ariana Conniff PA-C Work Phone: 03-05-2022 15:41-0500 Body mass index (BMI) [Ratio] 54.69 kg/m2 Ariana Conniff PA-C Work Phone: 03-05-2022 15:41-0500 Body weight 135.63 kg Ariana Conniff PA-C Work Phone: 03-05-2022 15:41-0500 Diastolic blood pressure 89 mm[Hg] Ariana Conniff PA-C Work Phone: 03-05-2022 15:41-0500 Heart rate 83 /min Ariana Conniff PA-C Work Phone: 03-05-2022 15:41-0500 SaO2% (BldA) [Mass fraction] 96 % Ariana Conniff PA-C Work Phone: 03-05-2022 15:41-0500 Systolic blood pressure 132 mm[Hg] Ariana Conniff PA-C Work Phone: 02-05-2022 09:38-0400 Diastolic blood pressure 89 mm[Hg] Ariana Conniff PA-C Work Phone: 02-05-2022 09:38-0400 Systolic blood pressure 140 mm[Hg] Ariana Conniff PA-C Work Phone: 02-05-2022 08:42-0400 Body height 157.5 cm Ariana Conniff PA-C Work Phone: 02-05-2022 08:42-0400 Body mass index (BMI) [Ratio] 54.69 kg/m2 Ariana Conniff PA-C Work Phone: 02-05-2022 08:42-0400 Body weight 135.63 kg Ariana Conniff PA-C Work Phone: 02-05-2022 08:42-0400 Heart rate 100 /min Ariana Conniff PA-C Work Phone: 02-05-2022 08:42-0400 SaO2% (BldA) [Mass fraction] 96 % Ariana Conniff PA-C Work Phone: 10-01-2021 09:28-0400 Body height 157.5 cm Ashley Mcdaniel III, MD Work Phone: 10-01-2021 09:28-0400 Body mass index (BMI) [Ratio] 53.55 kg/m2 Ashley Mcdaniel III, MD Work Phone: 10-01-2021 09:28-0400 Body weight 132.81 kg Ashley Mcdaniel III, MD Work Phone: 10-01-2021 09:28-0400 Diastolic blood pressure 88 mm[Hg] Ashley Mcdaniel III, MD Work Phone: 10-01-2021 09:28-0400 Heart rate 87 /min Ashley Mcdaniel III, MD Work Phone: 10-01-2021 09:28-0400 SaO2% (BldA) [Mass fraction] 96 % Ashley Mcdaniel III, MD Work Phone: 10-01-2021 09:28-0400 Systolic blood pressure 128 mm[Hg] Ashley Mcdaniel III, MD Work Phone: 09-10-2021 11:02-0400 Body height 157.5 cm Priya Jorge [employer] Work Phone: 09-10-2021 11:02-0400 Body mass index (BMI) [Ratio] 52.57 kg/m2 Priya Zamorayon [employer] Work Phone: 09-10-2021 11:02-0400 Body weight 130.36 kg Priya Jorge [employer] Work Phone: 09-10-2021 11:02-0400 Diastolic blood pressure 94 mm[Hg] Priya Ania [employer] Work Phone: 09-10-2021 11:02-0400 Heart rate 89 /min Priya Zamorayon [employer] Work Phone: 09-10-2021 11:02-0400 Systolic blood pressure 139 mm[Hg] Priya Zamorayon [employer] Work Phone: 08-04-2020 10:26-0400 BMI (Body Mass Index) 47.47 kg/m2 [facility] 08-04-2020 10:26-0400 Body Temperature 98.2 [degF] [facility] 08-04-2020 10:26-0400 Body weight 121.[address] [facility] 08-04-2020 10:26-0400 BP Diastolic 87 mm[Hg] [facility] 08-04-2020 10:26-0400 BP Systolic 133 mm[Hg] [facility] 08-04-2020 [id number] Height [address] [facility] 08-04-2020 [id number]:[id number] Pulse (Heart Rate) 79 /min [facility] 08-04-2020 10:26-0400 Pulse Oximetry 96 % [facility] 12-14-2019 09:32-0400 BMI (Body Mass Index) 49.19 kg/m2 [facility] 12-14-2019 09:32-0400 Body Temperature 98.1 [degF] [facility] 12-14-2019 09:32-0400 Body weight 134.08 kg [facility] 12-14-2019 09:32-0400 BP Diastolic 88 mm[Hg] [facility] 12-14-2019 09:32-0400 BP Systolic 130 mm[Hg] [facility] 12-14-2019 09:32-0400 Height 165.1 cm [facility] 12-14-2019 09:32-0400 Pulse (Heart Rate) 95 /min [facility] 12-14-2019 09:32-0400 Pulse Oximetry 96 % [facility] 12-07-2019 10:33-0400 BMI (Body Mass Index) 49.34 kg/m2 [facility] 12-07-2019 10:33-0400 Body Temperature 98.8 [degF] [facility] 12-07-2019 10:33-0400 Body weight 133.36 kg [facility] 12-07-2019 10:33-0400 BP Diastolic 74 mm[Hg] [facility] 12-07-2019 10:33-0400 BP Systolic 126 mm[Hg] [facility] 12-07-2019 10:33-0400 Height 164.4 cm [facility] 12-07-2019 10:33-0400 Pulse (Heart Rate) 84 /min [facility] 12-07-2019 10:33-0400 Pulse Oximetry 97 % [facility] 12-07-2019 10:33-0400 Respiratory Rate 14 /min [facility] 12-06-2019 00:21-0400 BP Diastolic 92 mm[Hg] [facility] 12-06-2019 00:21-0400 BP Systolic 138 mm[Hg] [facility] 12-06-2019 00:21-0400 Pulse (Heart Rate) 88 /min [facility] 12-06-2019 00:21-0400 Respiratory Rate 18 /min [facility] 12-05-2019 21:32-0400 Body Temperature 99.1 [degF] [facility] 12-05-2019 21:32-0400 Pulse Oximetry 97 % [facility] 06-25-2019 13:18-0500 BMI (Body Mass Index) 49.86 kg/m2 [facility] 06-25-2019 13:18-0500 Body Temperature 98.1 [degF] [facility] 06-25-2019 13:18-0500 Body weight 123.65 kg [facility] 06-25-2019 13:18-0500 BP Diastolic 82 mm[Hg] [facility] 06-25-2019 13:18-0500 BP Systolic 160 mm[Hg] [facility] 06-25-2019 13:18-0500 Height 157.5 cm [facility] 06-25-2019 13:18-0500 Pulse (Heart Rate) 85 /min [facility] 06-25-2019 13:18-0500 Pulse Oximetry 98 % [facility] 06-25-2019 13:18-0500 Respiratory Rate 14 /min [facility] 06-10-2019 08:16-0500 BMI (Body Mass Index) 49.35 kg/m2 [facility] 06-10-2019 08:16-0500 Body Temperature 97.39 [degF] [facility] 06-10-2019 08:16-0500 Body weight 122.38 kg [facility] 06-10-2019 08:16-0500 BP Diastolic 80 mm[Hg] [facility] 06-10-2019 08:16-0500 BP Systolic 110 mm[Hg] [facility] 06-10-2019 08:16-0500 Height 157.5 cm [facility] 06-10-2019 08:16-0500 Pulse (Heart Rate) 94 /min [facility] 06-10-2019 08:16-0500 Pulse Oximetry 97 % [facility] 06-10-2019 08:16-0500 Respiratory Rate 14 /min [facility] 03-17-2019 09:02-0500 BMI (Body Mass Index) 49.49 kg/m2 [facility] 03-17-2019 09:02-0500 Body Temperature 98.1 [degF] [facility] 03-17-2019 09:02-0500 Body weight 122.74 kg [facility] 03-17-2019 09:02-0500 BP Diastolic 74 mm[Hg] [facility] 03-17-2019 09:02-0500 BP Systolic 110 mm[Hg] [facility] 03-17-2019 09:02-0500 Height 157.5 cm [facility] 03-17-2019 09:02-0500 Pulse (Heart Rate) 100 /min [facility] 03-17-2019 09:02-0500 Pulse Oximetry 97 % [facility] 03-17-2019 09:02-0500 Respiratory Rate 16 /min [facility] 01-25-2019 13:10-0400 BMI (Body Mass Index) 51.4 kg/m2 [facility] 01-25-2019 13:10-0400 Body Temperature 98.4 [degF] [facility] 01-25-2019 13:10-0400 Body weight 127.46 kg [facility] 01-25-2019 13:10-0400 BP Diastolic 80 mm[Hg] [facility] 01-25-2019 13:10-0400 BP Systolic 117 mm[Hg] [facility] 01-25-2019 13:10-0400 Height 157.5 cm [facility] 01-25-2019 13:10-0400 Pulse (Heart Rate) 84 /min [facility] 01-25-2019 13:10-0400 Pulse Oximetry 97 % [facility] 01-25-2019 13:10-0400 Respiratory Rate 16 /min [facility] 11-24-2018 13:35-0400 BMI (Body Mass Index) 48.08 kg/m2 [facility] 11-24-2018 13:35-0400 Body Temperature 98.29 [degF] [facility] 11-24-2018 13:35-0400 Body weight 130.91 kg [facility] 11-24-2018 13:35-0400 BP Diastolic 84 mm[Hg] [facility] 11-24-2018 13:35-0400 BP Systolic 108 mm[Hg] [facility] 11-24-2018 13:35-0400 Height 165 cm [facility] 11-24-2018 13:35-0400 Pulse (Heart Rate) 85 /min [facility] 11-24-2018 13:35-0400 Pulse Oximetry 97 % [facility] 11-24-2018 13:35-0400 Respiratory Rate 14 /min [facility] 10-13-2018 11:26-0400 BP Diastolic 89 mm[Hg] Yasmin Conn Comment on above: Rechecked [facility] 10-13-2018 11:26-0400 BP Systolic 142 mm[Hg] Yasmin Brown Comment on above: Rechecked [facility] 10-13-2018 11:02-0400 BMI (Body Mass Index) 44.99 kg/m2 Yasmin Brown 10-13-2018 11:02-0400 Body Temperature 98.29 [degF] Yasmin Brown 10-13-2018 11:02-0400 Height 160 cm Yasmin [facility] 10-13-2018 11:02-0400 Pulse (Heart Rate) 84 /min Yasmin [facility] 10-13-2018 11:02-0400 Pulse Oximetry 98 % Yasmin [facility] 10-13-2018 11:02-0400 Respiratory Rate 18 /min Yasmin [facility] 10-13-2018 11:02-0400 Weight 115.21 kg Yasmin [facility] 03-18-2018 23:39-0500 BP Diastolic 77 mm[Hg] [facility] Work Phone: 03-18-2018 23:39-0500 BP Systolic 133 mm[Hg] [facility] Work Phone: 03-18-2018 23:39-0500 Pulse (Heart Rate) 85 /min [facility] Work Phone: 03-18-2018 23:39-0500 Pulse Oximetry 97 % [facility] Work Phone: 03-18-2018 23:39-0500 Respiratory Rate 18 /min [facility] Work Phone: 03-18-2018 22:16-0500 Height 157.5 cm [facility] Work Phone: 03-18-2018 22:14-0500 Body Temperature 98.01 [degF] [facility] Work Phone: Encounters Encounter Date Encounter Type Care Provider Facility Start: 01-26-2024 End: 01-26-2024 ambulatory ALYSSA PRAKASH [facility] Ambulato ry Start: 01-20-2024 End: 01-27-2024 Clinisync Result Encounter Hawk Héctor DO Work Phone: [facility] Unsolicited Start: 01-20-2024 End: 01-27-2024 Clinisync Result Encounter Hawk Héctor DO Work Phone: [facility] Unsolicited Start: 01-20-2024 End: 01-20-2024 ambulatory HAWK HÉCTOR Not Available Start: 01-12-2024 End: 01-12-2024 Office outpatient new 45 minutes Alyssa Prakash [employer] Work Phone: [facility] Comment on above: Abscess of right ping ast (Primary Dx); Family history of breast cancer Start: 01-12-2024 End: 01-12-2024 ambulatory ARIANA ERIC [facility] Ambulatory Start: 12-31-2023 End: 12-31-2023 ambulatory Sasha Alcala Facility[facility] Start: 12-30-2023 End: 12-30-2023 ambulatory HAWK HÉCTOR Not Available Start: 12-15-2023 End: 12-15-2023 ambulatory HAWK HÉCTOR Not Available Start: 11-27-2023 End: 11-27-2023 Office outpatient visit 10 minutes Tracy Alejandre MD Work Phone: [facility] Comment on above: Abscess of breast (P rimary Dx); Cellulitis of right breast Start: 11-27-2023 End: 11-27-2023 ambulatory ARIANA LEON [facility] Start: 11-06-2023 End: 11-06-2023 Office outpatient visit 15 minutes Tracy Alejandre MD Work Phone: [facility] Comment on above: Abscess of breast (P rimary Dx); Cellulitis of right breast Start: 11-06-2023 End: 11-06-2023 ambulatory ARIANA GARZA [facility] Start: 10-22-2023 End: 10-22-2023 Office outpatient visit 15 minutes Ariana Garza PA-C Work Phone: [facility] Comment on above: Cellulitis of right breast (Primary Dx); History of lump of right breast; Abscess of breast Start: 10-22-2023 End: 10-26-2023 ambulatory ARIANA GARZA [facility] Start: 10-17-2023 End: 10-17-2023 ambulatory ARIANAIsaias LEON [facility] Start: 10-17-2023 End: 10-21-2023 ambulatory ARIANAIsaias LEON [facility] Start: 10-16-2023 End: 10-16-2023 Office outpatient visit 15 minutes Nicole Dean PA-C Work Phone: [facility] Comment on above: Cellulitis of right breast (Primary Dx); Mastitis Start: 10-16-2023 End: 10-16-2023 ambulatory NICOLE DEAN [facility] Start: 09-30-2023 End: 09-30-2023 Office outpatient new 30 minutes Tracy Alejandre MD Work Phone: [facility] Comment on above: Mastitis (Primary Dx ) Start: 09-30-2023 End: 09-30-2023 ambulatory TRACY ALEJANDRE II [facility] Start: 08-19-2023 End: 08-19-2023 Office outpatient visit 25 minutes Ariana Garza PA-C Work Phone: [facility] Comment on above: Current moderate epi sode of major depressive disorder without prior episode (HCC) (Primary Dx); Prediabetes; Mastitis Start: 08-19-2023 End: 08-19-2023 ambulatory ARIANA GARZA [facility] Start: 07-03-2023 Coordination of care plan Cheri Hammond RN Patient Navigator Start: 07-03-2023 Documentation procedure Shari Tay CMA Physician [facility] General Surgery Comment on above: Results Start: 07-01-2023 Coordination of care plan Harper Gates RN Patient Navigator Start: 07-01-2023 End: 07-02-2023 ambulatory CATRACHITO WHYTE [facility] Start: 06-18-2023 End: 06-18-2023 Orders Only Ashley Mcdaniel MD Work Phone: Physician [facility] General Surgery Start: 05-14-2023 End: 05-14-2023 Transcribe Orders Ashley Mcdaniel MD Work Phone: [facility] Comment on above: Family history of br east cancer (Primary Dx) Nipple discharge (Pr imary Dx); Family history of breast cancer in first degree relative Start: 05-14-2023 End: 05-14-2023 Office outpatient new 20 minutes Ashley Mcdaniel MD Work Phone: Physician [facility] General Surgery Comment on above: Galactorrhea Start: 04-25-2023 End: 04-25-2023 ambulatory ARIANA LEON [facility] Start: 04-11-2023 End: 04-11-2023 ambulatory [facility] Start: 04-01-2023 End: 04-01-2023 Office outpatient visit 15 minutes Ariana Garza PA-C Work Phone: [facility] Comment on above: Discharge from right nipple (Primary Dx) Start: 04-01-2023 End: 04-05-2023 ambulatory [facility] Start: 01-23-2023 End: 01-23-2023 Office outpatient visit 25 minutes Ariana Garza PA-C Work Phone: [facility] Comment on above: Current moderate epi sode of major depressive disorder without prior episode (HCC) (Primary Dx); Prediabetes; Multiple joint complaints Start: 01-23-2023 End: 01-23-2023 ambulatory ARIANA [facility] Start: 09-04-2022 End: 09-04-2022 Office outpatient visit 15 minutes Ariana CONLEY-C Work Phone: [facility] Comment on above: Prediabetes (Primary Dx); Current moderate episode of major depressive disorder without prior episode (HCC) Start: 05-28-2022 End: 05-28-2022 Office outpatient visit 15 minutes Ariana CONLEY-C Work Phone: [facility] Comment on above: Current moderate epi sode of major depressive disorder without prior episode (HCC) (Primary Dx); Overactive bladder Start: 03-05-2022 End: 03-05-2022 Office outpatient visit 15 minutes Ariana CONLEY-C Work Phone: [facility] Comment on above: Current moderate epi sode of major depressive disorder without prior episode (HCC) (Primary Dx); Needs flu shot Start: 02-05-2022 End: 02-05-2022 Office outpatient visit 15 minutes Ariana CONLEY-C Work Phone: [facility] Comment on above: Current moderate epi sode of major depressive disorder without prior episode (HCC) (Primary Dx) Start: 10-02-2021 Documentation procedure Shari Tay [facility] Start: 10-01-2021 Coordination of care plan Elisha ross RN Patient Navigator Start: 10-01-2021 End: 10-01-2021 Office outpatient new 20 minutes Ashley Mcdaniel MD Work Phone: [facility] Comment on above: Abnormal mammogram o f right breast (Primary Dx) Start: 09-21-2021 Coordination of care plan Elisha ross RN Patient Navigator Comment on above: Mass of right breast , unspecified quadrant (Primary Dx) Start: 09-10-2021 End: 09-10-2021 Office outpatient new 30 minutes Priya Jorge CNP Work Phone: [facility] Comment on above: Suppurative hidraden itis (Primary Dx); Family history of breast cancer; Encounter for screening for malignant neoplasm of breast, unspecified screening modality Start: 04-29-2021 Orders Only Harper Cunningham rs [employer] Work Phone: [employer] Comment on above: Encntr for obs for s senior living expsr to oth biolg agents ruled out (Primary Dx) Start: 12-09-2020 End: 12-09-2020 Emergency department patient visit ROXIE [facility] Start: 08-04-2020 End: 08-04-2020 Initial preventive medicine new pt age 18-39yrs Maikel Leal Work Phone: [facility] Comment on above: Well adult health ch tiarra (Primary Dx) Start: 01-05-2020 End: 01-05-2020 ambulatory PHYSICIAN [facility] Start: 12-14-2019 End: 12-14-2019 Office outpatient visit 15 minutes Laan Lombardi Work Phone: [facility] Medicine Comment on above: Essential hypertensi on (Primary Dx); Post-traumatic stress Start: 12-07-2019 End: 12-07-2019 Office outpatient visit 15 minutes Lana Lombardi Work Phone: [facility] Medicine Comment on above: Chronic right-sided low back pain with bilateral sciatica (Primary Dx); Menorrhagia with regular cycle Start: 12-05-2019 End: 12-06-2019 Emergency department patient visit Surekha Quintanilla Work Phone: [facility] Start: 06-25-2019 End: 06-25-2019 Subsequent hospital visit by physician Lana Lombardi Work Phone: [employer] Comment on above: Arrived Start: 06-25-2019 End: 06-25-2019 Office outpatient visit 15 minutes Lana Lombardi Work Phone: [facility] Medicine Comment on above: Essential hypertensi on (Primary Dx); Long Q-T syndrome; Tobacco use Start: 06-10-2019 End: 06-10-2019 Office outpatient visit 15 minutes Lana Harjit Work Phone: [facility] Comment on above: Post-traumatic stres s (Primary Dx) Start: 03-17-2019 End: 03-17-2019 Office outpatient visit 15 minutes Lana Harjit Work Phone: [facility] Comment on above: Post-traumatic stres s (Primary Dx) Start: 02-01-2019 End: 02-01-2019 Telephone encounter Mady Hunter [facility] Comment on above: Other Start: 01-25-2019 End: 01-25-2019 Office outpatient visit 15 minutes Lana Lombardi Work Phone: [facility] Comment on above: Post-traumatic stres s (Primary Dx) Start: 01-21-2019 End: 01-21-2019 Telephone encounter Love Nelson [facility] Comment on above: Results Start: 01-19-2019 End: 01-19-2019 Letter encounter Lana Lombardi Work Phone: [facility] Start: 11-24-2018 End: 11-24-2018 Initial preventive medicine new pt age 18-39yrs Lana Lombardi Work Phone: [facility] Comment on above: Encounter for well w hortensia exam without gynecological exam (Primary Dx); Elevated TSH; BMI 45.0-49.9, adult Start: 10-13-2018 End: 10-17-2018 Patient encounter procedure YASMIN BROWN [facility] Start: 10-13-2018 End: 10-13-2018 Office outpatient new 20 minutes Yasmin Reena Brown Work Phone: [facility] Comment on above: Foot pain, right (Pr imary Dx); Elevated blood pressure reading; Tobacco use Start: 03-18-2018 End: 03-18-2018 Emergency department patient visit Tejinder Case Work Phone: [facility] Emergency Medicine Procedures Date Procedure Procedure Detail Performing Clinician Start: 01-20-2024 IGP,APTIMA HPV,AGE GDLN Hawk Héctor DO Work Phone: Start: 08-04-2020 Adult depression scr eening assessment Maikel Leal Start: 05-08-2020 Microscopic observat ion [Identifier] in Cervix by Cyto stain Raleighsandee Tommy Start: 12-05-2019 CT of thoracic spine Il lianna Olga Quintanilla Work Phone: Start: 12-05-2019 CT of lumbar spine Ilen e S Dwight Work Phone: Start: 06-25-2019 Standard ECG Laan Fa janeth Work Phone: Start: 10-13-2018 X-ray of right foot Pat basil Brown Work Phone: Plan of Treatment Date Care Activity Detail Author Start: 03-05-2028 Pneumococcal Vaccine : Ped or At-Risk (1 - PCV) Pneumococcal Vaccine: Ped or At-Risk (1 - PCV) Comment on above: Postponed from 06/01 (Not Indicated) Start: 03-05-2028 Pneumococcal Vaccine : Ped or At-Risk (1 of 2 - PCV) Pneumococcal Vaccine: Ped or At-Risk (1 of 2 - PCV) Comment on above: Postponed from 06/01 (Not Indicated) Start: 01-24-2025 End: 01-24-2025 Patient encounter procedure 01/24/2025 1:00 PM EDT Office Visit [facility] [address] [place] [id number] Hawk Anaya, DO [address] [place] [address] [facility] Start: 03-02-2024 End: 03-02-2024 Patient encounter procedure 03/02/2024 10:20 AM EST Office Visit [facility] [address] [place] [id number] Hwak Anaya, DO [address] [place] [address] [facility] Start: 02-13-2024 End: 02-13-2024 Patient encounter procedure 02/13/2024 9:00 AM EDT Procedure Visit [facility] Hawk Anaya, [address] [place] [address] [facility] Start: 01-26-2024 End: 01-26-2024 Patient encounter procedure 01/26/2024 10:45 AM EDT Office Visit [facility] [address] [place] [address] Alyssa Prakash, [employer] [address] [place] [address] [facility] Start: 01-12-2024 End: 01-11-2025 Microbial culture, body fluid Work Phone: Comment on above: Expected: 01/12/2024 , Expires: 01/11/2025 Start: 12-28-2023 COVID-19 Vaccine ( season) COVID-19 Vaccine ( season) Start: 12-28-2023 Influenza vaccination [facility] Start: 12-18-2023 End: 12-18-2023 Patient encounter procedure 12/18/2023 8:40 AM EDT Office Visit [facility] [address] [place] [phone] Ariana Garza PA-C [address] [place] [id number] [facility] Start: 11-27-2023 End: 11-27-2023 Patient encounter procedure 11/27/2023 11:00 AM EDT Office Visit [facility] [address] [place] [phone] Tracy Alejandre II, MD [address] [place] [phone] [facility] Start: 11-23-2023 Depression Remission Assessment (PHQ9) Depression Remission Assessment (PHQ9) Start: 11-13-2023 End: 11-13-2023 Patient encounter procedure 11/13/2023 2:15 PM EDT Office Visit [facility] [address] [place] [address] Tracy Alejandre II, MD [address] [place] [address] [facility] Start: 11-06-2023 End: 11-06-2023 Patient encounter procedure 11/06/2023 9:30 AM EDT Office Visit [facility] [address] [place] [address] Tracy Alejandre II, MD [facility] [place] [address] [facility] Start: 10-17-2023 End: 10-17-2023 Patient encounter procedure 10/17/2023 12:45 PM EDT Appointment [facility] [address] [place] [address] [facility] Start: 08-05-2023 End: 08-05-2023 Patient encounter procedure 08/05/2023 11:00 AM EDT Office Visit [facility] Primary Care Physicians [address] [place] [address] Ariana Garza PA-C [address] [place] [address] [facility]icians Start: 07-07-2023 End: 07-07-2023 Patient encounter procedure 07/07/2023 8:00 AM EDT Office Visit [facility] [address] [place] [address] Ashley Mcdaniel III, MD [address] [place] [address] [facility] Start: 07-01-2023 End: 07-01-2023 Patient encounter procedure [facility] Start: 05-08-2023 Screening for malign ant neoplasm of cervix Start: 04-25-2023 End: 04-25-2023 Patient encounter procedure 04/25/2023 11:00 AM EST Office Visit [facility] Primary [facility] Physicians [address] [place] [address] Ariana Garza PA-C [address] [place] [address] [facility] Start: 04-11-2023 End: 04-11-2023 Patient encounter procedure [facility] Start: 01-08-2023 End: 01-08-2023 Patient encounter procedure 01/08/2023 10:40 AM EDT Office Visit [facility] [address] [place] [address] Ariana Garza PA-C [address] [place] [address] [facility] Start: 12-27-2022 COVID-19 Vaccine ( season) COVID-19 Vaccine ( season) Start: 12-27-2022 COVID-19 Vaccine ( season) COVID-19 Vaccine ( season) Start: 12-27-2022 Influenza vaccination Sequenti al Influenza Vaccine (#1) Start: 12-06-2022 Depression Remission Assessment (PHQ9) Depression Remission Assessment (PHQ9) Start: 08-20-2022 End: 08-20-2022 Patient encounter procedure 08/20/2022 Office Visit Primary Care Ariana Garza PA-C [address] [facility] [place] [address] [facility] Start: 05-28-2022 End: 05-28-2022 Patient encounter procedure 05/28/2022 Office Visit Primary Care Ariana Garza PA-C [address] [facility] [place] [address] [facility] Start: 03-05-2022 End: 03-05-2022 Patient encounter procedure 03/05/2022 Office Visit Primary Care Ariana Garza PA-C [address] [facility] [place] [address] [facility] Start: 12-27-2021 Influenza vaccination Sequenti al Influenza Vaccine (#1) Start: 10-01-2021 End: 10-01-2021 Patient encounter procedure 10/01/2021 Appointment Radiology Ashley Mcdaniel III, MD [address] [place] [address] [facility] Start: 10-01-2021 End: 10-01-2021 Patient encounter procedure [facility] Gen Surg Start: 09-11-2021 End: 09-11-2021 Patient encounter procedure 09/11/2021 Appointment Radiology Priya Jorge, FINISHER PLATE [address] [facility] [address] [facility] Start: 09-11-2021 COVID-19 Vaccine (3 - Booster for Moderna series) COVID-19 Vaccine (3 - Booster for Moderna series) Start: 08-04-2021 Adolescent depressio n screening assessment Depression Screening (PHQ9) Start: 08-04-2021 Depression screening using PHQ-9 (Patient Health Questionnaire 9) score Depression Screening (PHQ-2/9) Start: 08-04-2021 History and physical examination, annual for health maintenance Wellness Visit Start: 06-08-2021 COVID-19 Vaccine (3 - Booster for Moderna series) COVID-19 Vaccine (3 - Booster for Moderna series) Start: 06-08-2021 COVID-19 Vaccine (3 - Moderna series) COVID-19 Vaccine (3 - Moderna series) Start: 04-30-2021 End: 04-30-2021 Patient encounter procedure 04/30/2021 Office Visit Lab Harper Gabriel, FINISHER PLATE [address] [place] [address] [facility] Start: 12-27-2020 Influenza vaccination Sequenti al Influenza Vaccine (#1) Start: 03-15-2020 End: 03-15-2020 Office Visit 03/15/2020 Office Visit Family Medicine Lana Lombardi APRN-FINISHER PLATE [address] [place] [address] [facility] Start: 12-28-2019 Influenza vaccination INFLUENZA VACC INE (#1) [facility] Start: 12-28-2019 Influenza vaccinatio n given Sequential Influenza Vaccine (#1) Start: 12-14-2019 End: 12-14-2019 Office Visit 12/14/2019 Office Visit Family Lana Lou APRN-FINISHER PLATE [address] [place] [address] [facility] Medicine Start: 07-12-2019 End: 07-12-2019 Office Visit 07/12/2019 Office Visit Family Medicine Lana Lombardi BAND TUMBLER-FINISHER PLATE [address] [place] [address] [facility] Start: 06-25-2019 End: 06-25-2020 Standard ECG ECG ECG Routine Essential hypertension Expected: 06/25/2019, Expires: 06/25/2020 [facility] Comment on above: Expected: 06/25/2019 , Expires: 06/25/2020 Start: 03-08-2019 End: 03-08-2019 Office Visit 03/08/2019 Office Visit Family Medicine Lana Lombardi, BAND TUMBLER-FINISHER PLATE [address] [place] [address] [facility] Family Medicine Start: 01-25-2019 End: 01-25-2019 Office Visit 01/25/2019 Office Visit Family Medicine Lana Lombardi BAND TUMBLER-FINISHER PLATE [address] [place] [address] [facility] Start: 12-27-2018 Influenza vaccination INFLUENZA VACC INE (#1) [facility] Start: 12-27-2018 Influenza vaccinatio n given SEQUENTIAL INFLUENZA VACCINE (Season Ended) Start: 11-24-2018 End: 11-25-2019 CBC, EDIF, PLATELET CBC, EDIF, PLATELET Lab Routine Encounter for well woman exam without gynecological exam Expected: 11/24/2018, Expires: 11/25/2019 [facility] Comment on above: Expected: 11/24/2018 , Expires: 11/25/2019 Start: 11-24-2018 End: 11-25-2019 Comprehensive metabolic 2000 panel COMPREHENSIVE METABOLIC PANEL Lab Routine Encounter for well woman exam without gynecological exam Expected: 11/24/2018, Expires: 11/25/2019 [facility] Comment on above: Expected: 11/24/2018 , Expires: 11/25/2019 Start: 11-24-2018 End: 11-25-2019 LIPID PANEL W CALCULATED LDL LIPID PANEL W CALCULATED LDL Lab Routine Encounter for well woman exam without gynecological exam Expected: 11/24/2018, Expires: 11/25/2019 [facility] Comment on above: Expected: 11/24/2018 , Expires: 11/25/2019 Start: 11-24-2018 End: 11-25-2019 TSH W/FT4 REFLEX TSH W/FT4 REFLEX Lab Routine Encounter for well woman exam without gynecological exam Elevated TSH Expected: 11/24/2018, Expires: 11/25/2019 [employer] Comment on above: Expected: 11/24/2018 , Expires: 11/25/2019 Start: 12-27-2017 Influenza vaccination INFLUENZA VACC INE (#1) [facility] Work Phone: Start: 2016 Screening for malign ant neoplasm of cervix HPV/Cotest Start: 2007 Screening for malign ant neoplasm of cervix [facility] Work Phone: Start: 2005 Third diphtheria, te tanus and acellular pertussis (DTaP) vaccination TDAP (ADULT) [facility] Work Phone: Start: 2004 Hepatitis C antibody , confirmatory test Hepatitis C Screening Start: 2004 Hepatitis C screening Hepatitis C Sc reening Start: 2004 Tetanus [facility] Work Phone: Start: 2002 COVID-19 Vaccine (1) COVID-19 Vaccin e (1) Start: 2001 HIV screening HIV Screening [facility] Start: 1999 HIV screening HIV SCREENING DISCUSSION [facility] Work Phone: Start: 1992 Pneumococcal Vaccine : Ped or At-Risk (1 - PCV) Pneumococcal Vaccine: Ped or At-Risk (1 - PCV) Start: 1992 Pneumococcal Vaccine : Ped or At-Risk (1 of 2 - PPSV23) Pneumococcal Vaccine: Ped or At-Risk (1 of 2 - PPSV23) Start: 1991 COVID-19 Vaccine (1) COVID-19 Vaccin e (1) Start: 1989 History and physical examination, annual for health maintenance Wellness Visit Start: 1986 Screening for malign ant neoplasm of cervix PAP SMEAR Start: 1986 Tetanus vaccination [facility] End: 09-05-2023 Complete blood count with white cell differential, manual CBC and Differential Lab Routine Prediabetes 1 Occurrences starting 09/04/2022 until 09/05/2023 Comment on above: 1 Occurrences starti ng 09/04/2022 until 09/05/2023 End: 08-19-2024 Complete blood count with white cell differential, manual CBC and Differential Lab Routine Prediabetes 1 Occurrences starting 08/19/2023 until 08/19/2024 Comment on above: 1 Occurrences starti ng 08/19/2023 until 08/19/2024 End: 09-05-2023 Comprehensive metabolic 2000 panel - Serum or Plasma Comprehensive Metabolic Panel Lab Routine Prediabetes 1 Occurrences starting 09/04/2022 until 09/05/2023 Comment on above: 1 Occurrences starti ng 09/04/2022 until 09/05/2023 End: 01-24-2024 Comprehensive metabolic 2000 panel - Serum or Plasma Comprehensive Metabolic Panel Lab Routine Prediabetes 1 Occurrences starting 01/23/2023 until 01/24/2024 Comment on above: 1 Occurrences starti ng 01/23/2023 until 01/24/2024 End: 08-19-2024 Comprehensive metabolic 2000 panel - Serum or Plasma Comprehensive Metabolic Panel Lab Routine Prediabetes 1 Occurrences starting 08/19/2023 until 08/19/2024 Comment on above: 1 Occurrences starti ng 08/19/2023 until 08/19/2024 End: 09-05-2023 Hemoglobin A1c/Hemoglobin.total in Blood Hemoglobin A1c Lab Routine Prediabetes 1 Occurrences starting 09/04/2022 until 09/05/2023 Work Phone: Comment on above: 1 Occurrences starti ng 09/04/2022 until 09/05/2023 End: 01-24-2024 Hemoglobin A1c/Hemoglobin.total in Blood Hemoglobin A1c Lab Routine Prediabetes 1 Occurrences starting 01/23/2023 until 01/24/2024 Work Phone: Comment on above: 1 Occurrences starti ng 01/23/2023 until 01/24/2024 End: 08-19-2024 Hemoglobin A1c/Hemoglobin.total in Blood Hemoglobin A1c Lab Routine Prediabetes 1 Occurrences starting 08/19/2023 until 08/19/2024 Work Phone: Comment on above: 1 Occurrences starti ng 08/19/2023 until 08/19/2024 INR Coag RelTime (Bld) XR Foot R ight 3+ Views (Standard) Imaging STAT Foot pain, right 10/13/2018 11:25 AM EDT End: 09-05-2023 Lipid 1996 panel - Serum or Plasma Lipid Panel Lab Routine Prediabetes 1 Occurrences starting 09/04/2022 until 09/05/2023 Comment on above: 1 Occurrences starti ng 09/04/2022 until 09/05/2023 End: 08-19-2024 Lipid 1996 panel - Serum or Plasma Lipid Panel Lab Routine Prediabetes 1 Occurrences starting 08/19/2023 until 08/19/2024 Comment on above: 1 Occurrences starti ng 08/19/2023 until 08/19/2024 End: 06-02-2024 MG Breast - bilateral Diagnostic Mammography Diagnostic Emile Bilateral Imaging Routine Discharge from right nipple 1 Occurrences starting 04/01/2023 until 06/02/2024 Comment on above: 1 Occurrences starti ng 04/01/2023 until 06/02/2024 End: 11-10-2022 MG Breast - bilateral Screening Mammography Screening Emile Bilateral Imaging Routine Encounter for screening for malignant neoplasm of breast, unspecified screening modality 1 Occurrences starting 09/10/2021 until 11/10/2022 Work Phone: Comment on above: 1 Occurrences starti ng 09/10/2021 until 11/10/2022 End: 05-14-2024 MR Breast - bilateral WO and W contrast IV MR Breast Bilateral With And Without Contrast Imaging Routine Nipple discharge Family history of breast cancer in first degree relative 1 Occurrences starting 05/14/2023 until 05/14/2024 Work Phone: Comment on above: 1 Occurrences starti ng 05/14/2023 until 05/14/2024 End: 06-18-2024 MR Guidance for biopsy of Breast - right MR Breast Core Biopsy Right Imaging Routine 1 Occurrences starting 06/18/2023 until 06/18/2024 Comment on above: 1 Occurrences starti ng 06/18/2023 until 06/18/2024 End: 04-01-2024 Prolactin [Mass/volume] in Serum or Plasma Prolactin Lab Routine Discharge from right nipple 1 Occurrences starting 04/01/2023 until 04/01/2024 Comment on above: 1 Occurrences starti ng 04/01/2023 until 04/01/2024 Prolactin [Mass/volu me] in Serum or Plasma Prolactin Lab Routine Discharge from right nipple 04/01/2023 10:25 AM EST End: 04-29-2022 SARS-CoV-2 (COVID-19) RNA [Presence] in Respiratory specimen by ALFREDO with probe detection COVID-19/Influenza A,B Molecular Microbiology Routine Encntr for obs for susp expsr to ot biolg agents ruled out 1 Occurrences starting 04/29/2021 until 04/29/2022 Work Phone: Comment on above: 1 Occurrences starti ng 04/29/2021 until 04/29/2022 End: 09-05-2023 Thyrotropin [Units/volume] in Serum or Plasma TSH Lab Routine Prediabetes 1 Occurrences starting 09/04/2022 until 09/05/2023 Comment on above: 1 Occurrences starti ng 09/04/2022 until 09/05/2023 End: 09-05-2023 Thyroxine (T4) free [Mass/volume] in Serum or Plasma T4, Free Lab Routine Prediabetes 1 Occurrences starting 09/04/2022 until 09/05/2023 Comment on above: 1 Occurrences starti ng 09/04/2022 until 09/05/2023 End: 09-21-2022 Ultrasonography guided biopsy of right breast US Breast Biopsy Right Imaging Routine Mass Of Right Breast, Unspecified Quadrant 1 Occurrences starting 09/21/2021 until 09/21/2022 Work Phone: Comment on above: 1 Occurrences starti ng 09/21/2021 until 09/21/2022 End: 04-01-2024 US Breast - right US Breast Right Complete Imaging Routine Discharge from right nipple 1 Occurrences starting 04/01/2023 until 04/01/2024 [employer] Work Phone: Comment on above: 1 Occurrences starti ng 04/01/2023 until 04/01/2024 End: 06-18-2024 US Breast - right US Breast Right Complete Imaging Routine 1 Occurrences starting 06/18/2023 until 06/18/2024 [employer] Work Phone: Comment on above: 1 Occurrences starti ng 06/18/2023 until 06/18/2024 End: 09-29-2024 US Breast - right US Breast Right Complete Imaging Routine Mastitis 1 Occurrences starting 09/30/2023 until 09/29/2024 Work Phone: Comment on above: 1 Occurrences starti ng 09/30/2023 until 09/29/2024 End: 06-18-2024 US Guidance for biopsy of Breast - right US Breast Biopsy Right Imaging Routine 1 Occurrences starting 06/18/2023 until 06/18/2024 Comment on above: 1 Occurrences starti ng 06/18/2023 until 06/18/2024 Immunizations Immunization Date Immunization Notes Care Provider Fa cili 03-05-2022 Seasonal, quadrivale nt, recombinant, injectable influenza vaccine, preservative free Ariana Garza PA-C Work Phone: 03-05-2022 flu vac qv 2021,18yr up,rcm-PF (FLUBLOK QUAD) syringe Ariana Garza PA-C Work Phone: 03-05-2022 influenza virus vaccine, unspecified formulation Ariana Garza PA-C Work Phone: 03-17-2019 influenza virus vaccine, unspecified formulation [facility] Payers Date Payer Category Payer Self-pay 2022 Unknown [id number] 2020 Unknown [facility] [employer] [facility] - PREFERRED [id number] 2020-Present [id number] 2020 Unknown [id number] 2020 Unknown [id number]. [id number]. [id number] 2018 Private Health Insurance xxx [id number]. [id number] 2018 Private Health Insurance [id number] 1986 Unknown [id number] 2.16840.1.056779.3.579. 2.903 1986 Unknown [id number] 2.16.840.1.749595.3.579. 2.903 1986 Unknown [id number] 2.16.840.1.665335.3.579. 2. 1986 Unknown [id number] 2.16.840.1.776503.3.579. 2.900 1986 Unknown [id number] 2.16.840.1.339779.3.579. 2. 1986 Unknown [id number] 2.16.840.1.574350.3.579. 2.900 1986 Unknown [id number] 2.16.840.1.975795.3.579. 2. 1986 Unknown [id number] 2.16.840.1.995731.3.579. 2 1986 Unknown [id number] 2.16.840.1.263687.3.579. 2 1986 Unknown [id number] 2.16.840.1.075716.3.579. 2 1986 Unknown [id number] 2.16.840.1.945604.3.579. 2 1986 Unknown [id number] 2.16.840.1.420738.3.579. 2 1986 Unknown [id number] 2.16.840.1.932758.3.579. 2 1986 Unknown [id number] 2.16.840.1.001930.3.579. 2 1986 Unknown [id number] 2.16.840.1.103604.3.579. 2. 1986 Unknown [id number] 2.16.840.1.939420.3.579. 2 1986 Unknown [id number] 2.16.840.1.969898.3.579. 2 1986 Unknown [id number] 2.16.840.1.484313.3.579. 2.903 1986 Unknown [id number] 2.16.840.1.477362.3.579. 2.3 1986 Unknown [id number] 2.16.840.1.901329.3.579. 2.903 1986 Unknown [id number] 2.16.840.1.445592.3.579. 2. 1986 Unknown [id number] 2.16.840.1.638795.3.579. 2.3 1986 Unknown [id number] 2.16.840.1.743518.3.579. 2.9 1986 Unknown [id number] 2.16.840.1.381314.3.579. 2.9 1986 Unknown [id number] 2.16.840.1.988047.3.579. 2.9 1986 Unknown [id number] 2.16.840.1.822765.3.579. 2.3 1986 Unknown [id number] 2.16.840.1.893525.3.579. 2. Unknown [id number] 2.16.840.1.781813.3.579. 2.462 Social History Date Type Detail Facility Start: 03-18-2018 End: 01-12-2024 Tobacco smoking status NHIS Current every day smoker [facility] Work Phone: Start: 03-18-2018 End: 04-01-2023 Cigarettes smoked current (pack per day) - Reported Start: 1985 Sex Assigned At Not on file [facility] Work Phone: History of tobacco use Cigarette Smoker [facility] Start: 10-13-2018 End: 02-05-2022 History SDOH Alcohol Frequency 1 Start: 01-31-2019 End: 04-01-2023 [facility] Start: 03-17-2019 End: 06-10-2019 Alcohol intake Current non-drinker of alcohol (finding) [facility] Start: 06-25-2019 End: 12-14-2019 Tobacco use and exposure Never used [facility] Start: 08-31-2021 End: 09-04-2022 Exposure to SARS-CoV-2 (event) Not sure [facility] Start: 12-14-2019 Tobacco Comment 10-15 cigarettes a day. [facility] Start: 08-04-2020 End: 01-12-2024 Tobacco use and exposure [facility] End: 03-12-2020 History of tobacco use User of smokeless tobacco Start: 08-04-2020 End: 10-01-2021 Alcohol intake Lifetime non-drinker (finding) Start: 08-04-2020 End: 02-05-2022 History SDOH Social Connections Phone 5 Start: 08-04-2020 History SDOH Social Connections Get Together 4 Start: 08-04-2020 End: 02-05-2022 History SDOH [employer] Membership 2 Start: 08-04-2020 History SDOH [employer] Living 3 Start: 08-04-2020 History SDOH Physical Activity DPW 0 Start: 09-10-2021 End: 09-10-2022 Tobacco smoking status NHIS Ex-smoker Start: 02-23-2022 End: 01-12-2024 Alcohol intake Ex-drinker (finding) Start: 02-05-2022 Alcohol Comment rare Within the last year , have you been afraid of your partner or ex-partner? No Are you now , , , , never or living with a partner? How often to you hav e a drink containing alcohol? Never Average Number of Drinks Not on file Do you feel stress - tense, restless, nervous, or anxious, or unable to sleep at night because your mind is troubled all the time - these days [OSQ] Not at all [facility] (I/We) worried wheth er (my/our) food would run out before (I/we) got money to buy more. Never true [facility] Start: 05-08-2020 Gender identity Identifies as female gender (finding) Start: 05-08-2020 Sexual orientation Heterosexual (finding) History of tobacco use Current smoker [facility] How hard is it for y ou to pay for the very basics like food, housing, medical care, and heating Not very hard [facility] Clinical Notes 04-29-2021 to 01-26-2024 Patient InstructionsAlyssa Prakash, DAMARIS - 01/12/2024 10:04 AM Tracy Hernandez II, MD - 11/27/2023 10:56 AM Tracy Hernandez II, MD - 11/06/2023 10:59 AM EDTPatient Instructions Note Date & Type Note Facility 01-26-2024 Note TODAY'S DATE: 024 PATIENT: Lele Leon : 1985, 38 y.o. Breast Cancer Risk Assessment: 5-year risk: 2.3% Lifetime Risk: 32% Chief Complaint Patient presents with Follow-up 2 week follow up HPI: 38 y.o. female presents today for 2 week follow up of a right breast abscess. She is a current tobacco user 0.5-1ppd. She denies alcohol or other drug use. 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 Her past medical history is significant for [...] a right breast ultrasound guided biopsy at [facility] on 07/01/2023. Ultrasound showed an isolated, focal [...] to clindamycin. She was seen by her hot press operator who cultured the nipple discharge on 12/22/2023 with results showing: Anaerobic: Bacteroides vulgatus, and Prevotella sp. Aerobic culture: staphylococcus epidermidis which was resistant to penicillins, clindamycin. This was suspectible to Bactrim and she was prescribed Bactrim x 7 days and Flagyl x 7 days. She recently finished these antibiotics. She was seen by Dr. Sasha Alcala ([facility]) who referred her to our office for evaluation. She reports improvement in her symptoms although persistent symptoms. She has a tender lump at the upper inner areolar margin on the right as well as associated skin redness. She reports persistent green/creamy nipple discharge as well as blood. This has ruptured spontaneously through the skin x 2. I saw her in the office initially on 01/12/2024 and performed I&D of a right breast abscess. This was cultured showing WBC but no organisms. The abscess cavity was packed. I gave her Flagyl and Bactrim x 10 days due to prior culture showing anaerobic bacteria and staphylococcus epidermidis. Today she presents for 2 week follow up. She reports doing much better today. She denies further redness, pain. Of note, she reports having a D&C and endometrial biopsy scheduled for 02/12 followed by a possible hysterectomy 03/30. ACCOUNTING DIRECTOR history: Menarche: 11 /Para: Age at 1st [...] CURETTAGE, SHARP W/ SUCTION) US BREAST BIOPSY RI (more content not included)... [facility] 01-12-2024 Instructions Alyssa Prakash CNP - 01/12/2024 12:52 PM EDT [place] [facility] [email or web address] documented in this encounter 01-12-2024 Note TODAY'S DATE: 024 PATIENT: Lele [...] other drug use. 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 Her past medical history is significant for [...] a right breast ultrasound guided biopsy at [facility] on 07/01/2023. Ultrasound showed an isolated, focal [...] to clindamycin. She was seen by her hot press operator who cultured the nipple discharge on 12/22/2023 with results showing: Anaerobic: Bacteroides vulgatus, and Prevotella sp. Aerobic culture: staphylococcus epidermidis which was resistant to penicillins, clindamycin. This was suspectible to Bactrim and she was prescribed Bactrim x 7 days and Flagyl x 7 days. She recently finished these antibiotics. She was seen by Dr. Sasha Alcala ([facility]) who referred her to our [...] 02/12 followed by a possible hysterectomy 03/30. ACCOUNTING DIRECTOR history: Menarche: 11 /Para: Age at 1st [...] US BREAST BIOPSY RIGHT 10/01/2021 Javier Mcdonald, [facility] ULTRASOUND US BREAST BIOPSY RIGHT Right 07/01/2023 US BREAST BIOPSY RIGHT 07/01/2023 BREAST ULTRASOUND [facility] Family History Problem Relation Age of Onset Breast cancer Mother 60 Cancer Mother Breast Lymphoma Sister Prostate cancer Maternal Grandfather Breast cancer Mater (more content not included)... [facility] 01-12-2024 History of Presen t illness [...] other drug use. 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 Her past medical history is significant for [...] a right breast ultrasound guided biopsy at [facility] on 07/01/2023. Ultrasound showed an isolated, focal [...] to clindamycin. She was seen by her hot press operator who cultured the nipple discharge on 12/22/2023 with results showing: Anaerobic: Bacteroides vulgatus, and Prevotella sp. Aerobic culture: staphylococcus epidermidis which was resistant to penicillins, clindamycin. This was suspectible to Bactrim and she was prescribed Bactrim x 7 days and Flagyl x 7 days. She recently finished these antibiotics. She was seen by Dr. Sasha Alcala ([facility]) who referred her to our [...] 02/12 followed by a possible hysterectomy 03/30. 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 Constitutional: General: [...] She recently had culture completed through her hot press operator office of her purulent nipple discharge which [...] smoking cessation. I provided her with the [place] tobacco quit line information on her AVS. [...] minutes on this encounter today which includes ljoi-ag-tlqg time with the patient, time reviewing the chart, and time spent documenting the encounter. documented in this encounter 11-27-2023 Note Lele Leon present s for a persistent cyst in the right breast, treated with antibiotics. Since her last visit 3 weeks ago, the cyst has continued to decrease, from the size of a daily to a pea and is not tender. She completed antibiotic a week ago Plan - doing much better. Excision skilled nursing is still a consideration. Follow up as needed. AUTHENTICATED BY TRACY ALEJANDRE II, ON 11/27/2023 12:56:45 [facility] 11-27-2023 History of Presen t illness Narrative Lele Leon presents for a persistent cyst in the right breast, treated with antibiotics. Since her last visit 3 weeks ago, the cyst has continued to decrease, from the size of a daily to a pea and is not tender. She completed antibiotic a week ago Plan - doing much better. Excision skilled nursing is still a consideration. Follow up as needed. documented in this encounter 11-06-2023 Note Lele Leon present s for a persistent cyst in the right breast, treated with antibiotics. Since her last visit 2 weeks ago and taking clindamycin, the cyst has continued to decrease, from the size of a plum to a daily, and is also less tender. Plan is to taper clindamycin for 2 more weeks and recheck in 3 weeks. Excision cone cleaner is still a consideration. AUTHENTICATED BY TRACY ALEJANDRE II, ON 11/06/2023 12:39:37 [facility] 11-06-2023 History of Presen [...] weeks and recheck in 3 weeks. Excision cone cleaner is still a consideration. documented in this encounter 10-22-2023 Note Lele Leon present s for [...] BY TRACY ALEJANDRE II, ON 10/22/2023 15:39:42 [facility] 10-22-2023 History of Presen [...] weeks, then reevaluate. documented in this encounter 10-16-2023 Note Lele Leon female 38 y.o. [...] AUTHENTICATED BY NICOLE DEAN, ON 10/17/2023 09:28:01 [facility] 10-16-2023 History of Presen [...] Nicole Dean PA-C documented in this encounter 10-16-2023 History of Presen t illness Narrative [...] Nicole Dean PA-C documented in this encounter 09-30-2023 Note Lele Leon female 38 y.o. [...] BY TRACY ALEJANDRE II, ON 10/01/2023 12:29:19 [facility] 08-25-2023 Note .Subjective Patient [...] If this im (more content not included)... [facility] 08-25-2023 History of Presen [...] . Note: This dictation was generated using [employer] voice recognition software. Please excuse any grammatical or spelling errors that may have occurred using the system. documented in this encounter 07-03-2023 History of Presen t illness Narrative Patient informed of negative right breast biopsy results. Patient also informed of the need for a repeat 6 month right breast mammogram and US. Recall placed in computer. documented in this encounter 07-03-2023 History of Presen t illness Narrative Called patient today for post biopsy call/check in. No answer, left VM for patient to return my call with any questions/concerns. Per chart, patient has viewed results in [employer] which reveal mastitis. Ordering provider to call patient with results. Benign path entered into breast care summary. Navigation will sign off at this time. Cheri MATTHEWS, RN General Oncology Nurse Navigator Breast Health Nurse Navigator [facility] [phone] documented in this encounter 07-01-2023 History of Presen t illness Narrative [...] in good condition. documented in this encounter 05-14-2023 History of Presen t illness Narrative [...] to genetic counseling. documented in this encounter 04-01-2023 Note Addended by: ARIANA GARZA on: 04/01/2023 10:45 AM Modules accepted: Orders 04-01-2023 Note Addended by: ARIANA GARZA on: 04/01/2023 10:45 AM Modules accepted: Orders 04-01-2023 Miscellaneous Notes Addended by: ARIANA GARZA on: 04/01/2023 10:45 AM Modules accepted: Orders documented in this encounter 04-01-2023 History of Presen t illness Narrative [...] Future Note: This dictation was generated using [employer] voice recognition software. Please excuse any grammatical or spelling errors that may have occurred using the system. documented in this encounter 01-28-2023 History of Presen t illness Narrative [...] . Note: This dictation was generated using [employer] voice recognition software. Please excuse any grammatical or spelling errors that may have occurred using the system. documented in this encounter 09-09-2022 History of Presen t illness Narrative .Subjective Patient ID: Lele Leon is a 37 y.o. female. Lele is a 37-year-old female presenting today for follow-up visit for management chronic conditions. She reports overall things are going well. She is really enjoying her new job still and is liking the work[employer] balance. She is compliant with her medications. [...] . Note: This dictation was generated using [employer] voice recognition software. Please excuse any grammatical or spelling errors that may have occurred using the system. documented in this encounter 05-28-2022 History of Presen t illness Narrative [...] . Note: This dictation was generated using [employer] voice recognition software. Please excuse any grammatical or spelling errors that may have occurred using the system. documented in this encounter 03-16-2022 History of Presen t illness Narrative [...] to accept a position back as a cotton roll packer which is something that she is very [...] Quad Note: This dictation was generated using [employer] voice recognition software. Please excuse any grammatical or spelling errors that may have occurred using the system. documented in this encounter 02-05-2022 History of Presen t illness Narrative [...] . Note: This dictation was generated using [employer] voice recognition software. Please excuse any grammatical [...] people? Somewhat difficult documented in this encounter 10-02-2021 History of Presen t illness Narrative Patient informed of negative right breast biopsy results. Patient also informed of the need for a repeat mammogram and ultrasound in 6 months. Recall placed in computer. documented in this encounter 10-01-2021 History of Presen t illness Narrative [...] in good condition. documented in this encounter 10-01-2021 Instructions Elisha Fuentes RN - 10/01/2021 [...] at any time. documented in this encounter 10-01-2021 History of Presen t illness Narrative [...] by Kaitlin Tay. documented in this encounter 09-21-2021 History of Presen t illness Narrative Dr. Lim met with patient to discuss imaging results and recommendations. He is recommending surgical consult and Right ultrasound breast biopsy Explained Breast Health Nurse role in assisting patient scheduling, education, and support. Referral to Dr. Mcdaniel. Appointment scheduled with Dr. Mcdaniel on 10/01/21 at [facility]. Biopsy appointment scheduled on 10/01/21 at [facility]. Patient Accepted first available appointment offered for consultation and/or biopsy. Anticoagulants = None Allergies = ibuprofen, bee venom. After Visit Summary reviewed with patient to include appointment information, biopsy education and office contact information. All questions answered. documented in this encounter 09-21-2021 Instructions Elisha Fuentes RN - 09/21/2021 [...] must lie still during the procedure. The water analyst places warm gel on your breast and [...] at any time. 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 Self pay??-refer to [facility] if applicable- [phone] Order Specific Question: Reason for Exam: Answer: family history of breast cancer (mother) Order Specific Question: Is the patient ? Answer: No Order Specific Question: Release to patient Answer: Immediate No results found for this or any previous visit (from the past 336 hour(s)). Note: This dictation was generated using [employer] voice recognition software. Please excuse any grammatical [...] is causing irritation. documented in this encounter 04-29-2021 History of Presen t illness Narrative Patient called [facility] with concern for COVID-19 and need for testing. [place]/ Department: [facility] Fever: no S/S : cough, sore throat, headache Known positive covid exposure?: no Per IDSA guidelines, testing is indicated. Suspect COVID, order placed. Patient aware this phone consult is for testing only. They will follow up with PCP/UC/ED for symptom management, if needed. documented in this encounter Evaluation note Diagnosis Encntr for obs for susp expsr to oth biolg agents ruled out- Primary documented in this encounter Evaluation note* Diagnosis Suppurative hidradenitis- Primary Hidradenitis Family history of breast cancer Family history of malignant neoplasm of breast Encounter for screening for malignant neoplasm of breast, unspecified screening modality documented in this encounter Evaluation note* Diagnosis Mass of right breast, unspecified quadrant- Primary documented in this encounter Evaluation note* Diagnosis Abnormal mammogram of right breast- Primary [facility] Diagnosis Current moderate episode of major depressive disorder without prior episode (HCC)- Primary [facility] Diagnosis Current moderate episode of major depressive disorder without prior episode (HCC)- Primary Needs flu shot Need for prophylactic vaccination and inoculation against influenza documented in this encounter Evaluation note* Diagnosis Current moderate episode of major depressive disorder without prior episode (HCC)- Primary Overactive bladder Hypertonicity of bladder documented in this encounter Evaluation note* Diagnosis Prediabetes- Primary Other abnormal glucose Current moderate episode of major depressive disorder without prior episode (HCC) [facility] Diagnosis Current moderate episode of major depressive disorder without prior episode (HCC)- Primary Prediabetes Other abnormal glucose Multiple joint complaints documented in this encounter Evaluation note* Diagnosis Discharge from right nipple- Primary documented in this encounter Evaluation note* Diagnosis Family history of breast cancer- Primary Family history of malignant neoplasm of breast documented in this encounter Evaluation note* Diagnosis Nipple discharge- Primary Other sign and symptom in breast Family history of breast cancer in first degree relative Family history of malignant neoplasm of breast documented in this encounter Evaluation note* Diagnosis 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 documented in this encounter Evaluation note* Diagnosis Current moderate episode of major depressive disorder without prior episode (HCC)- Primary Prediabetes Other abnormal glucose Mastitis Inflammatory disease of breast documented in this encounter Evaluation note* Diagnosis Mastitis- Primary Inflammatory disease of breast documented in this encounter Evaluation note* Diagnosis Cellulitis of right breast- Primary Mastitis Inflammatory disease of breast documented in this encounter Evaluation note* Diagnosis Cellulitis of right breast- Primary History of lump of right breast Abscess of breast Inflammatory disease of breast [facility] Diagnosis Abscess of breast- Primary Inflammatory disease of breast Cellulitis of right breast [facility] Diagnosis Abscess of breast- Primary Inflammatory disease of breast Cellulitis of right breast [facility] Diagnosis Abscess of right breast- Primary Family history of breast cancer Family history of malignant neoplasm of breast [facility] Diagnosis Abscess of right breast- Primary Family history of breast cancer Family history of malignant neoplasm of breast [facility] Attachments The following attachments cannot be sent through Care Everywhere. * Hidradenitis Suppurativa ([place] Citizen) [facility]* Attachments The following attachments cannot be sent through Care Everywhere. * Cervical: Exercises ([place] Citizen) [facility] * Tejinder Case MD - 03/18/2018 Continue to soak in warm water and dish soap, call Dr. Case symptoms worsens over the weekend, clindamycin 4 times daily as directed The following attachments cannot be sent through Care Everywhere. 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 Diagnoses Menorrhagia with regular cycle Harjit, Lana, BAND TUMBLER-FINISHER PLATE [address] [place] [address] Susie Sheldon, DO [address] [place] [address] Status Reason Specialty Diagnoses / Procedures Referred By Contact Referred To Contact New Request Procedures ECG Harjit, Lana, BAND TUMBLER-FINISHER PLATE [address] [place] [address] Status Reason Specialty Diagnoses / Procedures Referred By Contact Referred To Contact Schedule Outgoing - Transfer of Care Psychiatry Diagnoses Post-traumatic stress Harjit, Lana, BAND TUMBLER-FINISHER PLATE [address] [place] [address] Specialty Diagnoses / Procedures Referred By Contac t Referred To Contact Radiology Diagnoses Encounter for screening for malignant neoplasm of breast, unspecified screening modality Procedures Mammography Screening Priya Garcia, FINISHER PLATE [address] [place] [address] Referral ID Status Reason Start Date Expiration Date V isits Requested Visits Authorized [id number] Authorized 09/10/2021 09/10/2022 1 1 Specialty Diagnoses / Procedures Referred By Contac t Referred To Contact Radiology Diagnoses Mass of right breast, unspecified quadrant Procedures US Breast Biopsy Right Ashley Mcdaniel III, MD [address] [place] [address] Referral ID Status Reason Start Date Expiration Date V isits Requested Visits Authorized [id number] New Request 09/21/2021 09/21/2022 1 1 Specialty Diagnoses / Procedures Referred By Contac t Referred To Contact Radiology Diagnoses Discharge from right nipple Procedures Mammography Diagnostic Emile Bilateral Ariana Garza PA-C [address] [place] [address] Referral ID Status Reason Start Date Expiration Date V isits Requested Visits Authorized [id number] Authorized 04/01/2023 03/31/2024 1 1 Specialty Diagnoses / Procedures Referred By Contac t Referred To Contact Radiology Diagnoses Discharge from right nipple Procedures US Breast Right Complete Ariana Garza PA-C [address] [place] [address] Referral ID Status Reason Start Date Expiration Date V isits Requested Visits Authorized [id number] New Request 04/01/2023 03/31/2024 1 1 Specialty Diagnoses / Procedures Referred By Contac t Referred To Contact Genetics Diagnoses Family history of breast cancer Ashley Mcdaniel III, MD [facility] [place] [address] [facility] [place] Referral ID Status Reason Start Date Expiration Date V isits Requested Visits Authorized [id number] Authorized 05/14/2023 05/13/2024 1 1 Specialty Diagnoses / Procedures Referred By Contac t Referred To Contact Radiology Diagnoses Nipple discharge Family history of breast cancer in first degree relative Procedures MR Breast Bilateral With And Without Contrast Ashley Mcdaniel III, MD [facility] [place] [address] Referral ID Status Reason Start Date Expiration Date V isits Requested Visits Authorized [id number] New Request 05/14/2023 05/13/2024 1 1 Specialty Diagnoses / Procedures Referred By Contac t Referred To Contact Radiology Procedures MR Breast Core Biopsy Right Ashley Mcdaniel III, MD [address] [place] [phone] Referral ID Status Reason Start Date Expiration Date V isits Requested Visits Authorized [id number] Pending Review 06/18/2023 06/17/2024 1 1 Specialty Diagnoses / Procedures Referred By Contac t Referred To Contact Radiology Procedures US Breast Biopsy Right VenkateshAshley III, MD [address] [place] [id number] Referral ID Status Reason Start Date Expiration Date V isits Requested Visits Authorized [id number] Pending Review 06/18/2023 06/17/2024 1 1 Specialty Diagnoses / Procedures Referred By Contac t Referred To Contact Radiology Procedures US Breast Right Complete VenkateshAshley delcid III, MD [address] [place] [id number] Referral ID Status Reason Start Date Expiration Date V isits Requested Visits Authorized [id number] New Request 06/18/2023 06/17/2024 1 1 Specialty Diagnoses / Procedures Referred By Contac t Referred To Contact Diagnoses Prediabetes Kayla, Ariana Leon PA-C [address] [place] [phone] Referral ID Status Reason Start Date Expiration Date Visits Re quested Visits Authorized [id number] Closed 1 1 Specialty Diagnoses / Procedures Referred By Contac t Referred To Contact Radiology Diagnoses Mastitis Procedures US Breast Right Complete Tracy Alejandre II, MD [address] [place] [phone] Referral ID Status Reason Start Date Expiration Date V isits Requested Visits Authorized [id number] New Request 09/30/2023 09/29/2024 1 1 Specialty Diagnoses / Procedures Referred By Kofi beltran Referred To Contact Genetics Diagnoses Family history of breast cancer Alyssa Prakash, DAMARIS [address] [place] [address] [facility] [place] Referral ID Status Reason Start Date Expiration Date V isits Requested Visits Authorized [id number] Authorized 01/12/2024 01/11/2025 1 1 Instructions * Patient Instructions* Stephanie Yasminreggie Valles, DAMARIS - 10/13/2018 11:35 AM EDT Foot Pain: [...] your doctor if you can take an chuj-dre-whsredg medicine. Rest and protect your foot. Take [...] Log into your personal health record on [email or web address] and enter D999 in the Education box to learn more about Foot Pain: Care Instructions. Current as of: January 15, 2018 Content Version: 12.0 6018-5728 [employer]. Care instructions adapted under license by your healthcare professional. If you have questions about a medical condition or this instruction, always ask your healthcare professional. [employer] disclaims any warranty or liability for your [...] cushion your heel. You can buy these [employer] shoe stores. Use them in both shoes, [...] Log into your personal health record on [email or web address] and enter S299 in the Education box to learn more about Heel Pain: Care Instructions. Current as of: January 18, 2018 Content Version: 12.0 3507-5569 [employer]. Care instructions adapted under license by your healthcare professional. If you have questions about a medical condition or this instruction, always ask your healthcare professional. [employer] disclaims any warranty or liability for your use of this information. Follow up with the bindery library technical assistant. Ice, elevate and Tylenol. documented in this [...] may report side effects to FDA at 9-815-WBP-6643. What other drugs will affect losartan? Tell your doctor about all your other medicines, especially: a diuretic or water pill ; other blood pressure medications; lithium; or NSAIDs (nonsteroidal anti-inflammatory drugs) --aspirin, ibuprofen (Advil, Motrin), naproxen (Aleve), celecoxib, diclofenac, indomethacin, meloxicam, and others. This list is not complete. Other drugs may affect losartan, including prescription and gqsd-aym-dciwnen medicines, vitamins, and herbal products. Not all [...] to ensure that the information provided by [email or web address]. ('[employer]') is accurate, up-to-date, and complete, but no guarantee is made to that effect. Drug information contained herein may be time sensitive. [employer] information has been compiled for use by healthcare practitioners and consumers in the [place] and therefore [employer] does not warrant that uses outside of the [place] are appropriate, unless specifically indicated otherwise. [employer] drug information does not endorse drugs, diagnose patients or recommend therapy. [employer] drug information isan informational resource designed to [...] effective or appropriate for any given patient. [employer] does not assume any responsibility for any aspect of healthcare administered with the aid of information [employer] provides. The information contained herein is not intended to cover all possible uses, directions, precautions, warnings, drug interactions, allergic reactions, or adverse effects. If you have questions about the drugs you are taking, check with your doctor, nurse or pharmacist. Copyright 1017-7579 [employer]. Version: 16.01. Revision date: 08/05/2018. Care instructions adapted under license by your healthcare professional. If you have questions about a medical condition or this instruction, always ask your healthcare professional. [employer] disclaims any warranty or liability for your [...] of daily or weekly servings for a 2,612-bykhvkj-m-day diet. You may need more or less [...] DASH, visit: National Heart, Lung, and Blood [place] at www.nhlbi.nih.gov/health/health-topics/topics/dash MedlinePlus at https://medlineplus.gov/dashdiet.html Adopt healthy [...] wedges, 1 tablespoon sunflower seeds, 1 teaspoon Mohawk dressing 1 cup cantaloupe chunks cup fruit [...] cup raisins cup applesauce cup low-fat, low-sugar Mold[place] yogurt 1 low-fat mozzarella string cheese 2017October 26, 2018, [facility]. This handout is for informational purposes only. Talk with your doctor or healthcare team if you have any questions about your care. For more health information, call the [employer] at [phone] or email: [email or web address]. documented in this encounter* Patient Instructions* [...] Where can you learn more? Go to [email or web address]. Enter H967 in the search box to learn more about 'DASH Diet: Care Instructions.' Interested in seeing a video go to [email or web address] to see all video content. Current as of: April 12, 2019 Content Version: 12.5 1283-6309 [employer]. Care instructions adapted under license by your healthcare professional. If you have questions about a medical condition or this instruction, always ask your healthcare professional. [employer] disclaims any warranty or liability for your use of this information. documented in this encounter* Patient Instructions* Lana Lombardi APRN-CNP - 01/25/2019 1:00 PM EDT [facility] [place] [address] or [phone] A script for PAXIL has been sent [...] may report side effects to FDA at 6-677-ARW-2085. What other drugs will affect paroxetine? Taking [...] may interact with paroxetine, including prescription and czgk-yem-smoguyp medicines, vitamins, and herbal products. Not all [...] to ensure that the information provided by [email or web address]. ('[employer]') is accurate, up-to-date, and complete, but no guarantee is made to that effect. Drug information contained herein may be time sensitive. [employer] information has been compiled for use by healthcare practitioners and consumers in the [place] and therefore [employer] does not warrant that uses outside of the [place] are appropriate, unless specifically indicated otherwise. [employer] drug information does not endorse drugs, diagnose patients or recommend therapy. [employer] drug information isan informational resource designed to [...] effective or appropriate for any given patient. [employer] does not assume any responsibility for any aspect of healthcare administered with the aid of information [employer] provides. The information contained herein is not intended to cover all possible uses, directions, precautions, warnings, drug interactions, allergic reactions, or adverse effects. If you have questions about the drugs you are taking, check with your doctor, nurse or pharmacist. Copyright 6157-8260 [email or web address]. Version: 26.01. Revision date: 09/02/2016. Care instructions adapted under license by your healthcare professional. If you have questions about a medical condition or this instruction, always ask your healthcare professional. [employer] disclaims any warranty or liability for your [...] may report side effects to FDA at 3-835-BMR-1437. What other drugs will affect buspirone? Taking this medicine with other drugs that make you sleepy or slow your breathing can worsen these effects. Ask your doctor before taking buspirone with a sleeping pill, narcotic pain medicine, muscle relaxer, or medicine for anxiety, depression, or seizures. Other drugs may interact with buspirone, including prescription and ubvc-ksb-vchdvfl medicines, vitamins, and herbal products. Tell each [...] to ensure that the information provided by [email or web address] ('[employer]') is accurate, up-to-date, and complete, but no guarantee is made to that effect. Drug information contained herein may be time sensitive. [employer] information has been compiled for use by healthcare practitioners and consumers in the [place] and therefore [employer] does not warrant that uses outside of the [place] are appropriate, unless specifically indicated otherwise. [employer] drug information does not endorse drugs, diagnose patients or recommend therapy. [employer] drug information isan informational resource designed to [...] effective or appropriate for any given patient. [facility] does not assume any responsibility for any aspect of healthcare administered with the aid of information [facility] provides. The information contained herein is not intended to cover all possible uses, directions, precautions, warnings, drug interactions, allergic reactions, or adverse effects. If you have questions about the drugs you are taking, check with your doctor, nurse or pharmacist. Copyright 0162-3849 [email or web address]. Version: 5.01. Revision date: 04/10/2015. Care instructions adapted under license by your healthcare professional. If you have questions about a medical condition or this instruction, always ask your healthcare professional. [employer] disclaims any warranty or liability for your [...] AM EDT PATIENT NAME: Lele Dacosta [facility] [address] [place] [id number] : 1985 DATE OF VISIT: 10/13/2018 #: [...] file Gets together: Not on file Attends adventist service: Not on file Active member of [...] 5' 3 Wt 115.2 kg (254 lb) [facility] 10/06/2018 Comment: LMP end date SpO2 98% [...] OTC supplements/vitamins. Reports she has a personal banking representative and exercises 2-3 times a week (past [...] annual checkups. Lele was seen today for [facility] care and well adult. - CBC, EDIF, PLATELET; Future - COMPREHENSIVE METABOLIC PANEL; Future - LIPID PANEL W CALCULATED LDL; Future - TSH W/FT4 REFLEX; Future Elevated TSH Chronic. Repeat TSH ordered. - TSH W/FT4 REFLEX; Future BMI 45.0-49.9, adult Chronic. Discussed weight loss and diet. Offered referral to ticketing clerk. Pt declined at this time. 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 Going to counseling at [facility] in [place]. She has previously tried Zoloft and Lexapro. [...] times daily as needed. 60 tablet 1 mucegxkz-jiafiwwmz-ghiotxtdoyuwm 3.5-72428-7.[address] 1 drop in both eyes [...] better. documented in this encounter* Lana Lombardi APRN-FINISHER PLATE - 06/25/2019 1:20 PM EST Elevated blood [...] Lele presents after having been seen at [facility] ER on 12/05/19. States pain seemed to start around the same time as her period. 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 [...] Lele reports she has been having some skilled nursing problems with her periods, and some accompanying [...] told she was too young by her material processor negative for - incontinence or urinary frequency/urgency [...] with regular cycle N92.0 AMB REFERRAL TO OB-ACCOUNTING DIRECTOR Assessment and Plan Chronic right-sided low back [...] Uterine ablation discussed. - AMB REFERRAL TO OB-ACCOUNTING DIRECTOR Other orders - cyclobenzaprine 10 MG tablet; [...] Reports normal stress. Previously seeing counselor at [facility] in [place] but cannot afford it at $140/hr. Elevated [...] for the past 15 years. EKG from 2/28/20 - NSR, reviewed by cardiology Review of [...] has been madeto [facility] in [place]. Pt does not want to be seen in [place]. Online referral made for her , as [...] 20. documented in this encounter* Lana Lombardi APRN-FINISHER PLATE - 03/17/2019 9:00 AM EST PTSD Lele [...] [facility] [place], as recommended at her last appointment. She [...] her two small children with her today. Holt, appropriate interaction between mother and children. ICD-10-CM [...] PTSD. She is going to counseling at [facility] in [place]. On paroxetine. 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 Social Needs Financial resource strain: Not hard [...] Gets together: Three times a week Attends adventist service: Never Active member of club or [...] FoundDocuments on File Type Date Recorded Patient Labor Relations Director Expl anation Advance Directives and Living Will Documents on File Type Date Recorded Patient Labor Relations Director Expl anation Advance Directives and Living Will Documents on File Type Date Recorded Patient Labor Relations Director Expl anation Advance Directives and Livin [...] Establish Care Was with Dr Brennan in [facility]- seen him once- but is hanging because she works in [employer] now.Was seeing a counselor but they decided [...] General Surgery Diagnoses Galactorrhea Ariana Garza PA-C [address] [place] [address] Ashley Mcdaniel III, MD [address] [place] [address] Referral ID Status Reason Start Date Expiration Date Visits Re quested Visits Authorized [id number] Closed 04/25/2023 04/24/2024 1 1 Reason Onset Date Comments Results 07/03/2023 Reason Comments Follow-up No issues Specialty Diagnoses / Procedures Referred By Kofi beltran Referred To Contact Plastic Surgery Diagnoses History of lump of right breast Ariana Garza PA-C [address] [place] [address] Tracy Alejandre II, MD [address] [place] [address] Referral ID Status Reason Start Date Expiration Date Visits Re quested Visits Authorized [id number] Closed 09/24/2023 09/23/2024 1 1 Reason Comments Initial Visit (Intake) Right nipple Disc harge.CAT [facility] [facility] INFORMATION SOURCE (unrecogn ized section and content) DATE CREATED AUTHOR 10/17/2018 [facility] DATE CREATED AUTHOR AUTHOR'S ORGANIZ ATION 12/25/2019 [facility] DATE CREATED AUTHOR AUTHOR'S ORGANIZ ATION 12/15/2020 [facility] DATE CREATED AUTHOR AUTHOR'S ORGANIZ ATION 07/31/2023 [facility] DATE CREATED AUTHOR AUTHOR'S ORGANIZ ATION 11/12/2023 [facility] DATE CREATED AUTHOR AUTHOR'S ORGANIZ ATION 11/29/2023 [facility] DATE CREATED AUTHOR AUTHOR'S ORGANIZ ATION 01/15/2024 [facility] DATE CREATED AUTHOR AUTHOR'S ORGANIZ ATION 01/22/2024 [facility] EPIC DATE CREATED AUTHOR AUTHOR'S ORGANIZ ATION 01/27/2024 [facility] Surekha Wade MD - 12/05/2019 10:30 PM [...] file Gets together: Not on file Attends adventist service: Not on file Active member of [...] above information. . Surekha Quintanilla MD 12/06/19 0893 documented in this encounter Care Teams (unrecognized sec tion and content) Engraver Tender Relationship Specialty Start Date End Date Maikel Leal MD [address] [place] [address] PCP - General Family Medicine 08/04/20 Love Jimenez CNP [address] [place] [address] PCP - JASBIR Attributed Provider - [facility] 01/27/20 04/27/50 Engraver Tender Relationship Specialty Start Date End Date Maikel Leal MD [address] [place] [address] PCP - General Family Medicine 08/04/20 Love Jimenez CNP [address] [place] [address] PCP - JASBIR Attributed Provider - [facility] 01/27/20 04/27/50 Engraver Tender Relationship Specialty Start Date End Date Maikel Leal MD [address] [place] [address] PCP - General Family Medicine 08/04/20 Love Jimenez CNP [address] [place] [address] PCP - JASBIR Attributed Provider - [facility] 01/27/20 04/27/50 Elisha Fuentes, RN Patient Navigator Nursing 09/21/21 Engraver Tender Relationship Specialty Start Date End Date Maikel Leal MD [address] [place] [address] PCP - General Family Medicine 08/04/20 Love Jimenez CNP [address] [place] [address] PCP - JASBIR Attributed Provider - [facility] 01/27/20 04/27/50 Elisha Fuentes, RN Patient Navigator Nursing 09/21/21 Engraver Tender Relationship Specialty Start Date End Date Maikel Leal MD [address] [place] [address] PCP - General Family Medicine 08/04/20 Love Jimenez, DAMARIS [address] [place] [address] PCP - JASBIR Attributed Provider - [facility] 01/27/20 04/27/50 Elisha Fuentes, RN Patient Navigator Nursing 09/21/21 Engraver Tender Relationship Specialty Start Date End Date Maikel Leal MD [address] [place] [address] PCP - General Family Medicine 08/04/20 Love Jimenez, FINISHER PLATE [address] [place] [address] PCP - JASBIR Attributed Provider - [facility] 01/27/20 04/27/50 Engraver Tender Relationship Specialty Start Date End Date Love Jimenez CNP [address] [place] [address] PCP - JASBIR Attributed Provider - y 01/27/20 04/27/50 Love Jimenez, FINISHER PLATE [address] [place] [address] PCP - JASBIR Attributed Provider - [facility] 01/27/20 04/27/50 Ariana Garza PA-C [address] [place] [address] PCP - General Physician Adaptive Physical Education Specialist 02/05/22 Engraver Tender Relationship Specialty Start Date End Date Barbara Love Garcia, FINISHER PLATE [address] [place] [address] PCP - JASBIR Attributed Provider - [facility] 01/27/20 04/27/50 Barbara Love Garcia, FINISHER PLATE [address] [place] [address] PCP - JASBIR Attributed Provider - [facility] 01/27/20 04/27/50 Ariana Garza PA-C [address] [place] [address] PCP - General Physician Adaptive Physical Education Specialist 02/05/22 Engraver Tender Relationship Specialty Start Date End Date Ariana Garza PA-C [address] [place] [address] PCP - General Physician Adaptive Physical Education Specialist 02/05/22 Engraver Tender Relationship Specialty Start Date End Date Ariana Garza PA-C [address] [place] [address] PCP - General Physician Adaptive Physical Education Specialist 02/05/22 Engraver Tender Relationship Specialty Start Date End Date Ariana Garza PA-C [address] [place] [address] PCP - General Physician Adaptive Physical Education Specialist 02/05/22 Engraver Tender Relationship Specialty Start Date End Date Ariana Garza PA-C [address] [place] [address] PCP - General Physician Adaptive Physical Education Specialist 02/05/22 Engraver Tender Relationship Specialty Start Date End Date Ariana Garza PA-C [address] [place] [address] PCP - General Physician Adaptive Physical Education Specialist 02/05/22 Engraver Tender Relationship Specialty Start Date End Date Ariana Garza PA-C [address] [place] [address] PCP - General Physician Adaptive Physical Education Specialist 02/05/22 Engraver Tender Relationship Specialty Start Date End Date Ariana Garza PA-C [address] [place] [address] PCP - General Physician Adaptive Physical Education Specialist 02/05/22 Engraver Tender Relationship Specialty Start Date End Date Ariana Garza PA-C [address] [place] [address] PCP - General Physician Adaptive Physical Education Specialist 02/05/22 Klaudia Marley, RN Registered Nurse Nursing 06/18/23 Engraver Tender Relationship Specialty Start Date End Date Ariana Garza PA-C [address] [place] [address] PCP - General Physician Adaptive Physical Education Specialist 02/05/22 Klaudia Marley, RN Registered Nurse Nursing 06/18/23 Engraver Tender Relationship Specialty Start Date End Date Ariana Garza PA-C [address] [place] [address] PCP - General Physician Adaptive Physical Education Specialist 02/05/22 Engraver Tender Relationship Specialty Start Date End Date Ariana Garza PA-C [address] [place] [address] PCP - General Physician Adaptive Physical Education Specialist 02/05/22 Engraver Tender Relationship Specialty Start Date End Date Ariana Garza PA-C [address] [place] [address] PCP - General Physician Adaptive Physical Education Specialist 02/05/22 Engraver Tender Relationship Specialty Start Date End Date Love Jimenez CNP [address] [place] [address] PCP - JASBIR Attributed Provider - [facility] 01/27/20 04/27/50 Ariana Garza PA-C [facility] [place] [address] PCP - General Physician Adaptive Physical Education Specialist 02/05/22 Engraver Tender Relationship Specialty Start Date End Date Love Jimenez CNP [address] [place] [address] PCP - JASBIR Attributed Provider - [facility] 01/27/20 04/27/50 Ariana Garza PA-C [facility] [place] [address] PCP - General Physician Adaptive Physical Education Specialist 02/05/22 Engraver Tender Relationship Specialty Start Date End Date Love Jimenez CNP [address] [place] [address] PCP - JASBIR Attributed Provider - [facility] 01/27/20 04/27/50 Ariana Garza PA-C [address] [facility] [place] [address] PCP - General Physician Adaptive Physical Education Specialist 02/05/22 Engraver Tender Relationship Specialty Start Date End Date Hawk Anaya DO [address] [place] [address] Consulting Physician Obstetrics/Gynecology 01/12/24 Samy Alyssa Lucila, DAMARIS [address] [address] Nurse Practitioner 01/12/24 Engraver Tender Relationship Specialty Start Date End Date Hawk Anaya DO [address] [place] [address] Consulting Physician Obstetrics/Gynecology 01/12/24 Samy Alyssa Lucila, DAMARIS [address] [address] Nurse Practitioner 01/12/24 FOR RECORDS PERTAINING TO [...] BE BASED ON THE PRIMARY CLINICAL RECORDS. [facility]. provides no warranty or guarantee of the accuracy or completeness of information in this document.
[2024-02-13 07:54] LABS: Basophils Absolute Auto 0.1 10^3/uL (0.0-0.1); Basophils Percent Auto 0.6 % (0.2-2.0); Eosinophils Absolute Auto 0.2 10^3/uL (0.0-0.7); Hematocrit 39.5 % (36.0-48.0); Hemoglobin 12.8 g/dL (12.0-16.0); Immature Granulocytes Abs Auto 0.03 10^3/uL (0.00-0.03); Immature Granulocytes Pct Auto 0.3 % (0.0-0.5); Lymphocytes Absolute Auto 2.2 10^3/uL (1.2-3.8); Lymphocytes Percent Auto 24.3 % (20.5-60.0); Mean Corpuscular HGB Conc 32.4 g/dL (29.9-35.2); Mean Corpuscular Hemoglobin 29.3 pg (26.7-34.0); Mean Corpuscular Volume 90.4 fL (81.0-99.0); Mean Platelet Volume 10.2 fL (9.5-13.5); Monocytes Absolute Auto 0.7 10^3/uL (0.3-0.8); Monocytes Percent Auto 7.6 % (1.7-12.0); Neutrophils Absolute Auto 5.9 10^3/uL (1.4-6.5); Neutrophils Percent Auto 65.2 % (43.0-75.0); Platelet Count 353 10^3/uL (150-450); Red Blood Count 4.37 10^6/uL (4.20-5.40); Red Cell Distribution Width 14.6 % (11.0-15.0)
[2024-02-13 08:14] LABS: HCG Quantitative <1 mIU/mL
[2024-02-13] MEDS: 0.9 % SODIUM CHLORIDE 500 ML 50 ML IV (08:19)
--- NOTE | 2024-02-13 11:38 | PM.ONB ---
Brief Operative Note Date of procedure: 02/13/24 Pre-op diagnosis general: pelvic pain, uterine fibroids, menorrhagia, dysmenorrhea, dyspareunia Post-op diagnosis: same as pre-op Procedure: NAME OF PROCEDURE: [ D&c hysteroscopy with myosure, diagnostic laparoscopy] PROCEDURE: The patient was taken back to the Operating Room where she was prepped and draped in normal sterile fashion after being placed under general anesthesia without difficulty. She was also placed in the dorsal lithotomy position. A weighted speculum was placed in the patient?s vagina. The anterior lip of the cervix was identified and grasped with a single tooth tenaculum. The patient?s uterus was then sounded roughly to [? 8] cm. The patient was then gently dilated using Hegar dilators. The hysteroscope was passed through the patient?s cervix into the uterus. Both ostia were identified. fluffy appearing endometrium. No gross evidence of malignancy, no gross evidence of polyps or fibroids. The myosure apparatus was placed through the scope, The myosure was engaged and endometrial curretting were removed along with endometrial polyp, The hysteroscope was then removed from the uterus. The endometrial curettings were sent out to pathology. The single tooth tenaculum was then removed from the patient's anterior lip of the cervix where excellent hemostasis was noted. All instruments were removed from the patient?s vagina. . A sponge stick was placed into the patient's vagina. Attention was turned to the patient's abdomen, where a small umbilical incision was made. The fascia was tented using Abdirahman clamps and the fascia was entered sharply. Confirmation of intraabdominal placement of the 10 mm port was confirmed under direct visualization using a laparoscope. The patient's abdomen was then insufflated using CO2 gas with approximately 4 liters. A second port was placed left laterally, this was done under direct visualization with a 5 mm port. Survey of the patient's abdomen demonstrated normal liver and gallbladder. Survey of the patient's pelvic anatomy demonstrated normal appearing rt and lt ovary and tubes as well as enlarged appearing uterus with multiple large uterine fibroids anteriorly and posteriorly. No endometrial implants could be noted, no evidence of any pelvic disease was seen, normal appearing pelvic cavity. All instruments were removed from the patient's abdomen. The patient's abdomen was deinsufflated of CO2 gas. The patient tolerated the procedure well. Sponge stick was removed from the patient's vagina. The patient's infraumbilical fascia was closed using #0 Vicryl on a GI needle. The patient's skin was closed laterally and infraumbilically using 4-0 Vicryl. The patient tolerated the procedure well. Sponge, lap and needle counts were correct x 2. The patient was taken to Recovery Room in stable condition. Anesthesia: TRISTEN Surgeon: Hawk Anaya Keyboarding Teacher: Lakisha Thomas Estimated blood loss (mL): 5 Pathology: other (endometrial currettings) Condition: stable Disposition: PACU Urinary Catheter Management Urinary Catheter Management Urethral: Cath placed during this visit: no
--- NOTE | 2024-02-13 12:08 | PC.NURSE ---
1204 applied oxygen via nasal cannula 2 liters, patient's oxygenation level dropped with out oxygen. patient too sleep still post procedure.
[2024-02-13] MEDS: ONDANSETRON PF 4 MG/2 ML VIAL IV (12:15)
--- NOTE | 2024-02-13 12:21 | PC.NURSE ---
patient is nauseated and gave Zofran at 215 to help nausea
[2024-02-13] MEDS: HYDROMORPHONE HCL 0.5 MG/0.5 ML SYRINGE IV (12:26)
[2024-02-13] MEDS: LACTATED RINGER'S SOLUTION 1,000 ML 150 ML IV (12:28)
== END 2024-02-13 13:26 | disposition home or self-care (01) ==
PROVIDERS: Visit Provider Obstetrics & Gynecology
PROC: (CPT 840; principal; 2024-02-13 09:15)
DX: R93.89 Abnormal findings on diagnostic imaging of other specified body structures (principal); N93.9 Abnormal uterine and vaginal bleeding, unspecified; N85.2 Hypertrophy of uterus; R10.2 Pelvic and perineal pain; N92.0 Excessive and frequent menstruation with regular cycle; N94.6 Dysmenorrhea, unspecified; N94.10 Unspecified dyspareunia; D25.9 Leiomyoma of uterus, unspecified; N84.0 Polyp of corpus uteri; E66.01 Morbid (severe) obesity due to excess calories; Z68.43 Body mass index [BMI] 50.0-59.9, adult; G47.33 Obstructive sleep apnea (adult) (pediatric); R73.03 Prediabetes
CPT/HCPCS: 49320; 58558; 36415; 84702; 85025; J0131; J1100; J1171; J2250; J2405; J2704; J3010

== ENCOUNTER 2024-03-24 07:53 | Outpatient (OUT) | payer BC, SELFPAY ==
--- OUTSIDE RECORDS SUMMARY | 2024-03-24 08:16 | XMS_ITS | CCD ---
Author Organization [facility] Care Team Providers Care Clean Room Assembler Name Role Phone Jose Manuel Falcon Unavailable No, Physician Primary Care Provider Unavailabl e NO, PHYSICIAN Primary Care Unavailable YASMIN BROWN Attending Unavail able YASMIN BROWN Admitting Unavail able YASMIN BROWN Referring Unavail able NO, PHYSICIAN Primary Care Unavailable Lana Lombardi Primary Care Provider Maikel Leal Primary Care Provider [phone] ROXIE HUSSEIN Attending Unavailabl e MAIKEL LEAL Primary Care Unavailable GUSTAVO, PHYSICIAN Primary Care Unavailable SAMUEL MONTERO Attending Unavail able Maikel Leal MD Primary Care Provider Love Jimenez CNP Unavailable [phone] Maikel Leal MD Primary Care Provider Love Jimenez CNP Unavailable Elisha Fuentes RN Unavailable Unavailable BarbaraLove stern CNP Unavailable [phone] Ariana Garza PA-C Primary Care Provide r Love Jimenez CNP Unavailable [phone] Love Jimenez CNP Unavailable Ariana Garza PA-C [...] Unavailab le CONNIFF, ARIANA LEON Attending Unavailab marixa Barbara Love OCAMPO Unavailable CONNIFF, ARIANA LEON Primary Care Unavailab [...] Unavailab ASHLEY Sky III Attending Unav ailable CONNIFF, ARIANA LEON Primary Care Unavailab marixa GARZA, ARIANA LEON Referring Unavailab le CONNIFF, ARIANA LEON Attending Unavailab le STEPHANIEIFF, ARIANA LEON Primary Care Unavailab Hawk France DO R Unavailable Alyssa Prakash CNP Unavailable Sasha Alcala Attending Unavailable Hawk Anaya Referring Unavailable KAYLA, ARIANA LEON Primary Care Unavailab ALYSSA De La Torre Attending Unavailable ALYSAS PRAKASH Attending Unavailable Unavailable Primary Care Provider UnavailDO Hawk Turner Attending Provider [phone] Lamont Anayay Attending Unavailable HéctorLamont cavazosy Admitting Unavailable HÉCTORLAMONT CAVAZOSY Attending Unavailable HÉCTOR, HAWK Attending Unavailable HÉCTORLAMONTY Attending Unavailable HAWK ANAYA Attending Unavailable Allergies Allergy Classification Reported Allergen(s) Allergy Type Date of Onset Reaction(s) Facility NSAIDs (1 source) Ibuprofen Drug Allergy 9 GI Intolerance [facility] (20 sources) Ibuprofen; Translations: [Unknown] Drug Allergy 8 Nausea and Vomiting, GI Intolerance [facility] Work Phone: (20 sources) bee venom Propensity to adverse reactions to drug 9 Anaphylaxis [facility] (5 sources) BEE VENOM PROTEIN (HONEY BEE); Translations: [BEE VENOM PROTEIN (HONEY BEE)] Propensity to adverse reactions to drug (disorder) 9 [facility] (1 source) Ibuprofen Drug Allergy 4 [facility] (5 sources) Honey bee venom Propensity to adverse reactions 9 Anaphylaxis [facility] Work Phone: Medications Current Medications Medication [...] mg / trimethoprim 160 mg oral tablet (7 sources) Dihydrofolate Reductase Inhibitor Antibacterial, Sulfonamide Antimicrobial [...] / neomycin 3.5 mg/ml / polymyxin b 44882 unt/ml ophthalmic suspension (1 source) Aminoglycoside Antibacterial, Polymyxin-class Antibacterial, Corticosteroid Start: 05-07-2019 End: 06-10-2019 take 1 drop(s) into the eye(s) every four hours [id number]-rohxqpekvqhqo 3.5-30388-8.[address] 1 drop in both eyes every 4 hours while awake. 5 mL 0 05/07/2019 06/10/2019 Discontinued 30 ml EPINEPHrine 0.005 mg/ml / lidocaine hydrochloride 10 mg/ml injection (1 source) Antiarrhythmic, alpha-Adrenergic Agonist, beta-Adrenergic Agonist, Catecholamine, Amide Local Anesthetic Start: 03-18-2018 End: 03-18-2018 lidocaine-epinephrine 1%-1:2 36039 injection SOLN 10 mL Start: 03-18-2018 End: 03-18-2018 lidocaine-epinephrine 1%-1:2 63466 injection SOLN 10 mL lidocaine 0.05 mg/mg [...] Problem Classification Problem Date Documented Date Episodic/Chronic Abdominal pain (2 sources) Pain in female pelvis; Translations: [Pelvic and perineal pain] 03-02-2024 Episodic Anxiety disorders (4 sources) Posttraumatic stress disorder; Translations: [Post-traumatic stress] Chronic Conduction disorders (1 source) Long QT syndrome; Translations: [Long Q-T syndrome] Chronic Essential hypertension (2 sources) Essential hypertension; Translations: [Essential hypertension] Chronic Immunizations and screening for infectious disease (2 sources) Disorder excluded; Translations: [Encounter for observation for suspected exposure to other biological agents ruled out] Episodic Menstrual disorders (5 sources) Menorrhagia; Translations: [Excessive and frequent menstruation with regular cycle] 03-02-2024 Chronic Mood disorders (8 sources) Moderate major [...] Overactive bladder; Translations: [Overactive bladder] Chronic Other female genital disorders (2 sources) Pain in female genitalia on intercourse; Translations: [Unspecified dyspareunia] 03-02-2024 Chronic Other non-traumatic joint disorders (1 source) [...] Test Name Value Interpretation Reference Range Facility ALL CBC WITH AUTO DIFFon BASOPHILS ABSOLUTE AUTO 0.1 [facility] Basophils/100 WBC (Bld) 0.6 % 0.2 - 2.0 % [facility] Eosinophils/100 WBC (Bld) 2 % 0.9 - 7.0 % [facility] Erythrocyte distribution width (RBC) [Ratio] 14.6 % 11.0 - 15.0 % [facility] Hematocrit (Bld) [Volume fraction] 39.5 % 36.0 - 48.0 % [facility] Hem[facility] (Bld) [Mass/Vol] 12.8 g/dL 12.0 - 16.0 g/dL [facility] IMMATURE GRANULOCYTES ABS AUTO 0.03 [facility] Immature granulocytes/100 WBC (Bld) 0.3 % 0.0 - 0.5 % [facility] LYMPHOCYTES ABSOLUTE AUTO 2.2 [facility] Lymphocytes/100 WBC (Bld) 24.3 % 20.5 - 60.0 % [facility] MCH (RBC) [Entitic mass] 29.3 pg 26.7 - 34.0 pg [facility] MCHC (RBC) [Mass/Vol] 32.4 g/dL 29.9 - 35.2 g/dL [facility] MCV (RBC) [Entitic vol] 90.4 fL 81.0 - 99.0 fL [facility] MONOCYTES ABSOLUTE AUTO 0.7 [facility] Monocytes/100 WBC (Bld) 7.6 % 1.7 - 12.0 % [facility] NEUTROPHILS ABSOLUTE AUTO 5.9 [facility] Neutrophils/100 WBC (Bld) 65.2 % 43.0 - 75.0 % [facility] Platelet mean volume (Bld) [Entitic vol] 10.2 fL 9.5 - 13.5 fL [facility] are [facility] EO # 0.2 [facility] PLT 353 [facility] TB RBC 4.37 [facility] WBC 9 [facility] Pathology Request for Lab Co rpon 02-13-2024 Pathology Request for Lab Mundo Normal [facility] Comment on above: Order Comment: PATHO LOGY LIQUEFIED PETROLEUM GASFITTER SPECIMEN Result Comment: See report. Scanned copy available in EMR. PERFORMED BY: [place] [address] PATHOLOGIST CAMPGROUND CARETAKER HAYDEE FRANKLIN M.D. Performed By: #### P ATH TO [facility] #### [address] IGP,APTIMA HPV,AGE GDLNon AGE GDLN ACOG TESTING Note . [facility] Comment on above: TESTS RESULT FLAG UN ITS REF RANGE LAB Clinician Provided Cytology Information Source.............Cervix;Endocervix No. of containers..01 ThinPrep Vial Age Algo ACOG Drea... FLAG LEGEND: L-Low Normal,H-High Normal,LL-Alert Low,HH-Alert High <-Panic Low,>-Panic High,A-Abnormal,AA-Critical Abnormal Performed at: 01 [address] [place] [address] Vianney Rod MD, HPV APTIMA Negative Negative [facility] Comment on above: This nucleic acid am plification test detects fourteen high- risk HPV types (16,18,31,33,35,39,45,51,52,56,58,59,66,68) without differentiation. Performed at: = - [facility] [id number] Chicken Hatchery Helper: Vianney Rod MD, Phone: [phone] Performed at: - [address], [place] [id number] Chicken Hatchery Helper: Vianney Rod MD, Phone: [phone] IGP, APTIMA HPV, RFX 16/18,45 Note . [facility] Comment on above: TESTS RESULT FLAG UN ITS REF RANGE LAB DIAGNOSIS: 02 NEGATIVE FOR INTRAEPITHELIAL LESION OR MALIGNANCY. Specimen adequacy: 02 Satisfactory for evaluation. No endocervical component is identified. Performed by: 02 Miladis Hermosillo, Profiler Operator (ASCP) . 02 Note: Note 02 The Pap [...] <-Panic Low,>-Panic High,A-Abnormal,AA-Critical Abnormal Performed at: 02 [facility] [address] [place] [address] Vianney Rod MD, BRUSH-SPATULA CERVIX ENDOCERVIX [facility] BODY FLUID AEROBIC CULTUREon 01-12-2024 BODY FLUID AEROBIC CULTURE AEROBIC CULTURE No Growth after 5 days GRAM STAIN RESULT WBC This is a corrected result. Previous result was Many WBC No Organisms Seen Normal [facility] Comment on above: Performed By: #### 4 [id number] #### [facility] [address] [place] [address] Javier Santana M.D. [id number] Plastic Surgery Visit Report on 12-31-2023 Plastic Surgery Visit Report [facility] Plastic Reconstructive Surgery [address] [facility] [address], [address] [place] [id number] OFFICE VISIT Date of Service: 12/31/23 MR#: [id number] Acct: [id number] Name: LELE LEON Rep #: [id number] : 1985 Provider: Dr. Sasha abdi MD Age/Sex: 38/F Location: [facility] Status: Signed Intake Vital Signs 12/31/23 11:04 Height 5 ft 2 in Weight: 296 lb 4 oz BMI 54.1 BP 123/86 H Blood Pressure Location Rt brachial Position Sitting Respiration 16 Pulse 82 Temp 98.2 F Temp Source Oral Pulse Oximetry (%) 96 Intake Visit Reasons: Breast Reduction Chief Complaint: breast reduction consult Accompanied by: fiance Is patient in pain?: Yes (3/10 breast) Allergies ibuprofen (From NeoProfen (ibuprofen lysn)(PF)) [...] consult due to cyst in breast, [facility] (Updated 12/31/23 @ 12:40 by [...] her to their in-house plastic surgeon at [place]. She underwent a needle biopsy of the [...] I had (more content not included)... Normal [facility] CBC WITH AUTO DIFFERENTIALon 10-17-2023 AUTO NRBC 0.0 % Normal [facility] Comment on above: Performed By: #### L [id number] #### [facility] [address] [place], [place] [address] Tenisha Vizcarra M.D. [id number] AUTO NRBC ABS COUNT 0.00 K/mcL Normal 0.00-0.00 [facility] Comment on above: Performed By: #### L [id number] #### [facility] [address] [place], [place] [address] Tenisha Vizcarra M.D. [id number] BASOPHILS ABSOLUTE COUNT 0.04 K/mcL Normal 0.00-0.30 [facility] Comment on above: Performed By: #### L [id number] #### [facility] [address] [place], [place] [address] Teinsha Vizcarra M.D. [id number] Basophils/100 WBC (Bld) 0.5 % Normal [facility] Comment on above: Performed By: #### L [id number] #### [facility] [address] [place] [address] Tenisha Vizcarra M.D. [id number] Eosinophils (Bld) [#/Vol] 0.14 10*3/uL Normal 0.00-0.50 [facility] Comment on above: Performed By: #### L [id number] #### [facility] [address] [place] [address] Tenisha Vizcarra M.D. [id number] Eosinophils/100 WBC (Bld) 1.7 % Normal [facility] Comment on above: Performed By: #### L [id number] #### [facility] [address] [place] [address] Tenisha Vizcarra M.D. [id number] Erythrocyte distribution width (RBC) [Ratio] 14.2 % Normal 11.6-14.8 [facility] Comment on above: Performed By: #### L [id number] #### [facility] [address] [place] [address] Tenisha Vizcarra M.D. [id number] Hematocrit (Bld) [Volume fraction] 40.2 % Normal 36.0-46.0 [facility] Comment on above: Performed By: #### L [id number] #### [facility] [address] [place] [address] Tenisha Vizcarra M.D. [id number] Hemoglobin (Bld) [Mass/Vol] 13.2 g/dL Normal 12.0-16.0 [facility] Comment on above: Performed By: #### L [id number] #### [facility] [address] [place] [address] Tenisha Vizcarra M.D. [id number] IG ABSOLUTE 0.03 K/mcL Normal 0.00-0.30 [facility] Comment on above: Performed By: #### L [id number] #### [facility] [address] [place] [address] Tenisha Vizcarra M.D. [id number] IG PERCENT 0.40 % Normal [facility] Comment on above: Result Comment: The IG parameter is the percentage of metamyelocytes, myelocytes and promyelocytes. An immature granulocyte count (IG) of 1% or more suggests the possibility of infection, an IG count of 3% is very likely related to an infection. Performed By: #### L [id number] #### [facility] [address] [place] [address] Tenisha Vizcarra M.D. [id number] Lymphocytes (Bld) [#/Vol] 2.38 10*3/uL Normal 0.90-4.00 [facility] Comment on above: Performed By: #### L [id number] #### [facility] [address] [place] [address] Tenisha Vizcarra M.D. [id number] Lymphocytes/100 WBC (Bld) 29.5 % Normal [facility] Comment on above: Performed By: #### L [id number] #### [facility] [address] [place] [address] Tenisha Vizcarra M.D. [id number] MCH (RBC) [Entitic mass] 29.6 pg Normal 26.0-34.0 [facility] Comment on above: Performed By: #### L [id number] #### [facility] [address] [place] [address] Tenisha Vizcarra M.D. [id number] MCV (RBC) [Entitic vol] 90.1 fL Normal 80.0-100.0 [facility] Comment on above: Performed By: #### L [id number] #### [facility] [address] [place] [address] Tenisha Vizcarra M.D. [id number] MEAN CORPUSCULAR HEMOGLOBIN CONC 32.8 g/dL Normal 31.0-37.0 [facility] Comment on above: Performed By: #### L [id number] #### [facility] [address] [place], [place] [address] Tenisha Vizcarra M.D. [id number] Monocytes (Bld) [#/Vol] 0.57 10*3/uL Normal 0.30-0.90 [facility] Comment on above: Performed By: #### L [id number] #### [facility] [address] [place] [address] Tenisha Vizcarra M.D. [id number] Monocytes/100 WBC (Bld) 7.1 % Normal [facility] Comment on above: Performed By: #### L [id number] #### [facility] [address] [place] [address] Tenisha Vizcarra M.D. [id number] NEUTROPHILS ABSOLUTE COUNT 4.91 K/mcL Normal 1.70-7.00 [facility] Comment on above: Performed By: #### L [id number] #### [facility] [address] [place] [address] Tenisha Vizcarra M.D. [id number] Neutrophils/100 WBC (Bld) 60.8 % Normal [facility] Comment on above: Performed By: #### L [id number] #### [facility] [address] [place] [address] Tenisha Vizcarra M.D. [id number] Platelet mean volume (Bld) [Entitic vol] 10.6 fL Normal 9.4-12.4 [facility] Comment on above: Performed By: #### L [id number] #### [facility] [address] [place] [address] Tenisha Vizcarra M.D. [id number] Platelets (Bld) [#/Vol] 371 10*3/uL Normal 150-400 [facility] Comment on above: Performed By: #### L [id number] #### [facility] [address] [place] [address] Tenisha Vizcarra M.D. [id number] RBC (Bld) [#/Vol] 4.46 10*6/uL Normal 4.00-5.20 [facility] Comment on above: Performed By: #### L [id number] #### [facility] [address] [place], [place] [address] Tenisha Vizcarra M.D. [id number] WBC (Bld) [#/Vol] 8.07 10*3/uL Normal 4.50-11.00 [facility] Comment on above: Performed By: #### L [id number] #### [facility] [address] [place] [address] Tenisha Vizcarra M.D. [id number] COMPREHENSIVE METABOLIC PANE [facility] 10-17-2023 Albumin [Mass/Vol] 3.8 g/dL Normal 3.2-5.2 [facility] Comment on above: Order Comment: [facility] has implemented the eGFR calculation approach that does not have a coefficient for race that conforms to the NKF-ASN Task Force Recommendations. Performed By: #### 4 [id number] #### [facility] [address] [place] [address] Tenisha Vizcarra M.D. [id number] ALP [Catalytic activity/Vol] 81 U/L Normal 40-140 [facility] Comment on above: Order Comment: [facility] has implemented the eGFR calculation approach that does not have a coefficient for race that conforms to the NKF-ASN Task Force Recommendations. Performed By: #### 4 [id number] #### [facility] [address] [place], [place] [address] Tenisha Vizcarra M.D. [id number] ALT [Catalytic activity/Vol] 15 U/L Normal 0-35 U/L [facility] Comment on above: Order Comment: [facility] has implemented the eGFR calculation approach that does not have a coefficient for race that conforms to the NKF-ASN Task Force Recommendations. Performed By: #### 4 [id number] #### [facility] [address] [place], [place] [address] Tenisha Vizcarra M.D. [id number] Anion gap [Moles/Vol] 12 mmol/L Normal 10-20 [facility] Comment on above: Order Comment: [facility] has implemented the eGFR calculation approach that does not have a coefficient for race that conforms to the NKF-ASN Task Force Recommendations. Performed By: #### 4 [id number] #### [facility] [address] [place], [place] [address] Tenisha Vizcarra M.D. [id number] AST [Catalytic activity/Vol] 16 U/L Normal 0-35 U/L [facility] Comment on above: Order Comment: [facility] has implemented the eGFR calculation approach that does not have a coefficient for race that conforms to the NKF-ASN Task Force Recommendations. Performed By: #### 4 [id number] #### [facility] [address] [place], [place] [address] Tenisha Vizcarra M.D. [id number] Bilirubin [Mass/Vol] 0.3 mg/dL Normal 0.0-1.3 [facility] Comment on above: Order Comment: [facility] has implemented the eGFR calculation approach that does not have a coefficient for race that conforms to the NKF-ASN Task Force Recommendations. Performed By: #### 4 [id number] #### [facility] [address] [place], [place] [address] Tenisha Vizcarra M.D. [id number] Calcium [Mass/Vol] 9.2 mg/dL Normal 8.4-10.2 [facility] Comment on above: Order Comment: [facility] has implemented the eGFR calculation approach that does not have a coefficient for race that conforms to the NKF-ASN Task Force Recommendations. Performed By: #### 4 [id number] #### [facility] [address] [place], [place] [address] Tenisha Vizcarra M.D. [id number] Chloride [Moles/Vol] 105 mmol/L Normal 98-108 [facility] Comment on above: Order Comment: [facility] has implemented the eGFR calculation approach that does not have a coefficient for race that conforms to the NKF-ASN Task Force Recommendations. Performed By: #### 4 [id number] #### [facility] [address] [place], [place] [address] Tenisha Vizcarra M.D. [id number] Creatinine [Mass/Vol] 0.66 mg/dL Normal 0.40-1.10 [facility] Comment on above: Order Comment: [facility] has implemented the eGFR calculation approach that does not have a coefficient for race that conforms to the NKF-ASN Task Force Recommendations. Performed By: #### 4 [id number] #### [facility] [address] [place], [place] [address] eTnisha Vizcarra M.D. [id number] EGFR 116 mL/min/1.73 m2 Normal >=60 [facility] Comment on above: Order Comment: [facility] has implemented the eGFR calculation approach that does not have a coefficient for race that conforms to the NKF-ASN Task Force Recommendations. Result Comment: Coco mated GFR was calculated using the 2020 CKD-EPI creatinine equation. Performed By: #### 4 [id number] #### [facility] [address] [place], [place] [address] Tenisha Vizcarra M.D. [id number] Glucose [Mass/Vol] 115 mg/dL High 65-99 [facility] Comment on above: Order Comment: [facility] has implemented the eGFR calculation approach that does not have a coefficient for race that conforms to the NKF-ASN Task Force Recommendations. Performed By: #### 4 [id number] #### [facility] [address] [place], [place] [address] Tenisha Vizcarra M.D. [id number] HCO3 (Bld) [Moles/Vol] 24 mmol/L Normal 21-32 [facility] Comment on above: Order Comment: [facility] has implemented the eGFR calculation approach that does not have a coefficient for race that conforms to the NKF-ASN Task Force Recommendations. Performed By: #### 4 [id number] #### [facility] [address] [place], [place] [address] Tenisha Vizcarra M.D. [id number] Potassium [Moles/Vol] 3.7 mmol/L Normal 3.5-5.1 [facility] Comment on above: Order Comment: [facility] has implemented the eGFR calculation approach that does not have a coefficient for race that conforms to the NKF-ASN Task Force Recommendations. Performed By: #### 4 [id number] #### [facility] [address] [place], [place] [address] Tenisha Vizcarra M.D. [id number] Protein [Mass/Vol] 7.2 g/dL Normal 6.0-8.0 [facility] Comment on above: Order Comment: [facility] has implemented the eGFR calculation approach that does not have a coefficient for race that conforms to the NKF-ASN Task Force Recommendations. Performed By: #### 4 6126 #### [facility] [address] [place], [place] [address] Tenisha Vizcarra M.D. [id number] Sodium [Moles/Vol] 137 mmol/L Normal 135-145 [facility] Comment on above: Order Comment: [facility] has implemented the eGFR calculation approach that does not have a coefficient for race that conforms to the NKF-ASN Task Force Recommendations. Performed By: #### 4 [id number] #### [facility] [address] [place], [place] [address] Tenisha Vizcarra M.D. [id number] Urea nitrogen [Mass/Vol] 12 mg/dL Normal 8-25 [facility] Comment on above: Order Comment: [facility] has implemented the eGFR calculation approach that does not have a coefficient for race that conforms to the NKF-ASN Task Force Recommendations. Performed By: #### 4 [id number] #### [facility] [address] [place], [place] [address] Tenisha Vizcarra M.D. [id number] Urea nitrogen/Creatinine [Mass ratio] 18.2 mg/mg Normal 10.0-20.0 [facility] Comment on above: Order Comment: [facility] has implemented the eGFR calculation approach that does not have a coefficient for race that conforms to the NKF-ASN Task Force Recommendations. Performed By: #### 4 [id number] #### [facility] [address] [place], [place] [address] Tenisha Vizcarra M.D. [id number] HEMOGLOBIN A1Con 10-17-2023 Glucose [Mass/Vol] 126 mg/dL High 74-114 [facility] Comment on above: Performed By: #### 4 8202 #### [facility] [address] [place], [place] [address] Tenisha Vizcarra M.D. [id number] HbA1c (Bld) [Mass fraction] 6.0 % High 4.2-5.6 [facility] Comment on above: Performed By: #### 4 8202 #### [facility] [address] [place], [place] [address] Tenisha Vizcarra M.D. [id number] LIPID PANELon 10-17-2023 Cholesterol [Mass/Vol] 150 mg/dL Normal 100-199 [facility] Comment on above: Performed By: #### 4 6087 #### [facility] [address] [place], [place] [address] Tenisha Vizcarra M.D. [id number] Cholesterol in HDL [Mass/Vol] 37 mg/dL Low 40-59 [facility] Comment on above: Performed By: #### 4 6087 #### [facility] [address] [place], [place] [address] Tenisha Vizcarra M.D. [id number] Cholesterol.total/Ch olesterol in HDL [Mass ratio] 4.1 {ratio} Normal [facility] Comment on above: Result Comment: Fema le Cholesterol/HDL Ratio: Average risk: 4.4 1/2 average risk: 3.3 2 x average risk: 7.1 Performed By: #### 4 6087 #### [facility] [address] [place], [place] [address] Tenisha Vizcarra M.D. [id number] LDL CHOLESTEROL CALCULATED 102 mg/dL Normal 10-130 [facility] Comment on above: Result Comment: Tisha onal Cholesterol Education Program Guidelines: LDL Cholesterol Optimal: <100 mg/dL Near Optimal/above Optimal: 100-129 mg/dL Borderline High: 130-159 mg/dL High: 160-189 mg/dL Very High: greater than or equal to 190 mg/dL Performed By: #### 4 [id number] #### [facility] [address] [place], [place] [address] Tenisha Vizcarra M.D. [id number] NON HDL CHOL 113 mg/dL Normal [facility] Comment on above: Result Comment: Tisha onal Cholesterol Education Program Guidelines: NON HDL Cholesterol Desirable: <130 mg/dL Borderline High: 130-159 mg/dL High: 160-189 mg/dL Very High: > or = 190 mg/dL Performed By: #### 4 6087 #### [facility] [address] [place], [place] [address] Tenisha Vizcarra M.D. [id number] Triglyceride [Mass/Vol] 57 mg/dL Normal 30-150 [facility] Comment on above: Performed By: #### 4 6087 #### [facility] [address] [place], [place] [address] Tenisha Vizcarra M.D. [id number] US BREAST RIGHT LIMITEDon US BREAST RIGHT [...] surgical drainage and debridement may be optimum. DMM/zhao Workstation ID: [id number] Dictated by: PANCHO POST on FriOct 17, 2023 2:19:12 PM EDT Transcribed by: DANIEL CALLAWAY on FriOct 17, 2023 2:59:17 PM EDT Finalized by: PANCHO POST on FriOct 17, 2023 5:25:41 PM EDT Normal [facility] Comment on above: Order Comment: Flash white schedule in [place]. Injury/Trauma or Illness?:Illness/Other How long have you had these symptoms (acute/chronic)?:Unknown Reason for exam?:mastitis Type of Exam?:Subsequent/Follow-up Additional signs and symptoms?:none [facility] FOLLOW UP POST CLIP PLACEMENT [...] results are concordant with the imaging findings. [facility] Workstation ID: [id number] Dictated by: CATRACHITO CUBA Transcribed by: DANIEL CALLAWAY on FriJul 01, 2023 9:21:59 AM EST Finalized by: CATRACHITO CUBA on FriJul 01, 2023 9:57:03 AM EST Normal [facility] US BREAST BIOPSY RIGHTon US BREAST [...] mammogram. Code ZW - Awaiting further pathology. [facility]/ Workstation ID: [id number] Addended: FriJul 03, 2023 9:22 AM by Catrachito Cuba MD ADDENDUM: Pathology - Right breast, 1 o'clock zone A, ultrasound-guided core biopsy: Actively inflamed duct compatible with mastitis. Pathology results are concordant with the imaging findings. [facility] Workstation ID: [id number] Dictated by: CATRACHITO CUBA on FriJul 01, 2023 8:44:54 AM EST Transcribed by: DANIEL CALLAWAY on FriJul 01, 2023 9:21:59 AM EST Finalized by: CATRACHITO CUBA on FriJul 01, 2023 9:57:03 AM EST Normal [facility] Comment on above: Order Comment: Injur [...] results are concordant with the imaging findings. [facility] Workstation ID: [id number] Dictated by: CATRACHITO CUBA on FriJul 01, 2023 8:44:54 AM EST Transcribed by: DANIEL CALLAWAY on FriJul 01, 2023 9:21:59 AM EST Finalized by: CATRACHITO CUBA on FriJul 01, 2023 9:57:03 AM EST Normal [facility] MR BREAST BILATERAL WITH AND WITHOUT [...] FriJun 18, 2023 8:38:37 AM EST Normal [facility] Comment on above: Order Comment: [...] sent to the patient regarding the results. [facility] Workstation ID: [id number] Dictated by: NAEL MCCRAY on FriApr 11, 2023 2:41:42 PM EST Transcribed by: LAVERNE JALLOH on FriApr 11, 2023 4:07:44 PM EST Finalized by: NAEL MCCRAY on FriApr 11, 2023 4:35:14 PM EST Normal [facility] US BREAST BILAT LIMITEDon US [...] sent to the patient regarding the results. [facility] Workstation ID: [id number] Dictated by: NAEL MCCRAY on FriApr 11, 2023 2:41:42 PM EST Transcribed by: LAVERNE JALLOH on FriApr 11, 2023 4:07:44 PM EST Finalized by: NAEL MCCRAY on FriApr 11, 2023 4:35:14 PM EST Normal [facility] Comment on above: Order Comment: [...] [id number] Dictated by: LEE DEL TORO on [facility] Dec 09, 2020 2:40:07 AM EDT Transcribed by: LEE DEL TORO on [facility] Dec 09, 2020 2:40:07 AM EDT Finalized by: LEE DEL TORO on [facility] Dec 09, 2020 2:40:07 AM EDT [facility] Comment on above: Order Comment: Injur y/Trauma [...] 2. No biliary duct dilatation or gallstones. [email or web address] Workstation ID: [id number] Dictated by: BEBA FRANK on [facility] Dec 09, 2020 3:02:22 AM EDT Transcribed by: KWAKU JALLOH on [facility] Dec 09, 2020 5:26:22 AM EDT Finalized by: BEBA FRANK on [facility] Dec 09, 2020 6:43:30 AM EDT [facility] Comment on above: Order Comment: US Ga llbladder Injury/Trauma or Illness?:Illness/Other How long have you had these symptoms (acute/chronic)?:Acute Reason for exam?:ruq pain; nausea; vomiting History of cancer?:na Surgeries, chemotherapy, or radiation?:na Type of Exam?:Ongoing CT DATED TODAY Additional signs and symptoms?:NONE CT SPINE LUMBAR WITHOUT CONT RASTon 12-06-2019 CT SPINE LUMBAR WITHOUT CONTRAST EXAMINATION: [...] secondary to a diffuse disc bulge. Normal [facility] CT SPINE THORACIC WITHOUT CO NTRASTon [...] appear clear. IMPRESSION: No acute findings. Normal [facility] IMPRESSION: 1. No acute fracture or dislocation of the lumbar spine is seen. 2. There is mild to moderate right and mild left neural foraminal narrowing at L4-L5 secondary to a diffuse disc bulge. [facility] EXAMINATION: CT SPIN E LUMBAR WITHOUT CONTRAST [...] to be any significant spinal canal stenosis. [employer] User, Interfaces - 12/05/2019 11:48 PM EDT EXAMINATION: CT SPINE [...] L4-L5 secondary to a diffuse disc bulge. [facility] CT SPINE THORACIC WITHOUT CO NTRASTon 12-05-2019 IMPRESSION: No acute findings. [facility] EXAMINATION: CT SPIN E THORACIC WITHOUT CONTRAST [...] Imaged portions of the lungs appear clear. [facility] User, Interfaces - 12/05/2019 11:39 PM EDT [...] appear clear. IMPRESSION IMPRESSION: No acute findings. [facility] CBCon 06-25-2019 ABSOLUTE BAS 0.1 10*3/uL Normal 0.0-0.2 [facility] Comment on above: Performed By: #### A CBC #### Testing performed at [address] [address] ABSOLUTE EOS 0.10 10*3/uL Normal 0.0-0.7 [facility] Comment on above: Performed By: #### A CBC #### Testing performed at [address] [address] ABSOLUTE NEUTROPHIL COUNT 6.1 10*3/uL Normal 1.4-6.5 [facility] Comment on above: Performed By: #### A CBC #### Testing performed at [address] [address] Basophils/100 WBC (Bld) 0.7 % Normal 0.0-2.0 [facility] Comment on above: Performed By: #### A CBC #### Testing performed at [address] [address] DTYPE AUTO DIFF Normal [facility] Comment on above: Performed By: #### A CBC #### Testing performed at [address] [address] Eosinophils/100 WBC (Bld) 1.4 % Normal 0.0-11.0 [facility] Comment on above: Performed By: #### A CBC #### Testing performed at [address] [address] Lymphocytes (Bld) [#/Vol] 2.40 10*3/uL Normal 1.2-3.4 [facility] Comment on above: Performed By: #### A CBC #### Testing performed at [address] [address] Lymphocytes/100 WBC (Bld) 26.2 % Normal 20.0-55.0 [facility] Comment on above: Performed By: #### A CBC #### Testing performed at [address] [address] Monocytes (Bld) [#/Vol] 0.6 10*3/uL Normal 0.0-0.7 [facility] Comment on above: Performed By: #### A CBC #### Testing performed at [address] [address] Monocytes/100 WBC (Bld) 6.1 % Normal 0.0-10.0 [facility] Comment on above: Performed By: #### A CBC #### Testing performed at [address] [address] Neutrophils/100 WBC (Bld) 65.6 % Normal 37.0-75.0 [facility] Comment on above: Performed By: #### A CBC #### Testing performed at [address] [address] Erythrocyte distribution width (RBC) [Ratio] 15.5 % High 11.5-14.5 [facility] Comment on above: Performed By: #### A CBC #### Testing performed at [address] [address] Hematocrit (Bld) [Volume fraction] 41.4 % Normal 36.0-48.0 [facility] Comment on above: Performed By: #### A CBC #### Testing performed at [address] [address] Hemoglobin (Bld) [Mass/Vol] 14.1 g/dL Normal 12.0-16.0 [facility] Comment on above: Performed By: #### A CBC #### Testing performed at [address] [address] MCH (RBC) [Entitic mass] 30.9 pg Normal 26.0-35.0 [facility] Comment on above: Performed By: #### A CBC #### Testing performed at [address] [address] MCHC (RBC) [Mass/Vol] 34.1 g/dL Normal 27.0-37.0 [facility] Comment on above: Performed By: #### A CBC #### Testing performed at [address] [address] MCV (RBC) [Entitic vol] 90.4 fL Normal 80.0-100.0 [facility] Comment on above: Performed By: #### A CBC #### Testing performed at [address] [address] Platelet mean volume (Bld) [Entitic vol] 8.2 fL Normal 7.4-11.0 [facility] Comment on above: Performed By: #### A CBC #### Testing performed at [address] [address] Platelets (Bld) [#/Vol] 350 10*3/uL Normal 130.0-400.0 [facility] Comment on above: Performed By: #### A CBC #### Testing performed at [address] [address] RBC (Bld) [#/Vol] 4.58 10*6/uL Normal 4.0-5.4 [facility] Comment on above: Performed By: #### A CBC #### Testing performed at [address] [address] WBC (Bld) [#/Vol] 9.3 10*3/uL Normal 3.6-11.0 [facility] Comment on above: Performed By: #### A CBC #### Testing performed at [facility] [address] [place] [address] CBC, EDIF, [employer] 2019 ABSOLUTE BASOPHIL COUNT 0.1 10*3/uL 0 - 0.2 10*3/uL [facility] Basophils/100 WBC (Bld) 0.7 % 0 - 2 % [facility] Differential cell count method Nom (Bld) AUTO DIFF % [facility] Eosinophils (Bld) [#/Vol] 0.10 10*3/uL 0 - 0.7 10*3/uL [facility] Eosinophils/100 WBC (Bld) 1.4 % 0 - 11 % [facility] Erythrocyte distribution width (RBC) [Ratio] 15.5 % High 11.5 - 14.5 % [facility] Hematocrit (Bld) [Volume fraction] 41.4 % 36 - 48 % [facility] Hemoglobin (Bld) [Mass/Vol] 14.1 g/dL [facility] Interpretation and review of laboratory results Abnormal [facility] Lymphocytes (Bld) [#/Vol] 2.40 10*3/uL 1.2 - 3.4 10*3/uL [facility] Lymphocytes/100 WBC (Bld) 26.2 % 20 - 55 % [facility] MCH (RBC) [Entitic mass] 30.9 pg 26 - 35 PG [facility] MCHC (RBC) [Mass/Vol] 34.1 g/dL [facility] MCV (RBC) [Entitic vol] 90.4 fL [facility] Monocytes (Bld) [#/Vol] 0.6 10*3/uL 0 - 0.7 10*3/uL [facility] Monocytes/100 WBC (Bld) 6.1 % 0 - 10 % [facility] Neutrophils (Bld) [#/Vol] 6.1 10*3/uL 1.4 - 6.5 10*3/uL [facility] Neutrophils/100 WBC (Bld) 65.6 % 37 - 75 % [facility] Platelet mean volume (Bld) [Entitic vol] 8.2 fL [facility] Platelets (Bld) [#/Vol] 350 10*3/uL 130 - 400 10*3/uL [facility] RBC (Bld) [#/Vol] 4.58 10*6/uL 4 - 5.4 10*6/uL [facility] WBC (Bld) [#/Vol] 9.3 10*3/uL 3.6 - 11 10*3/uL [facility] CMP FASTINGon 06-25-2019 A:G RATIO 1.3 RATIO Normal 1.3-2.2 [facility] Comment on above: Performed By: #### A CBC #### Testing performed at [address] [address] Albumin [Mass/Vol] 4.5 G/dl Normal 3.5-5.0 [facility] Comment on above: Performed By: #### A CBC #### Testing performed at [address] [address] ALP [Catalytic activity/Vol] 76 U/L Normal 38-126 [facility] Comment on above: Performed By: #### A CBC #### Testing performed at [address] [address] ALT [Catalytic activity/Vol] 32 U/L Normal 9-52 [facility] Comment on above: Performed By: #### A CBC #### Testing performed at [address] [place] [address] AST [Catalytic activity/Vol] 23 U/L Normal 14-36 [facility] Comment on above: Performed By: #### A CBC #### Testing performed at [address] [place] [address] Bilirubin [Mass/Vol] 0.3 mg/dL Normal 0.2-1.3 [facility] Comment on above: Performed By: #### A CBC #### Testing performed at [address] [place] [address] Calcium [Mass/Vol] 9.2 mg/dL Normal 8.4-10.2 [facility] Comment on above: Performed By: #### A CBC #### [place] [address] Chloride [Moles/Vol] 101 mmol/L Normal 98-107 [facility] Comment on above: Result Comment: Ryan berg note: Triglyceride levels of 600mg/dL or higher may positively bias chloride results by approximately 2.1 mmol Performed By: #### A CBC #### [place] [address] CO2 [Moles/Vol] 26 mmol/L Normal 22-30 [facility] Comment on above: Performed By: #### A CBC #### [place] [address] Creatinine [Mass/Vol] 0.71 mg/dL Normal 0.7-1.2 [facility] Comment on above: Performed By: #### A CBC #### [place] [address] EST. GFR, >60 Normal [facility] Comment on above: Performed By: #### A CBC #### [place] [address] EST. GFR,Non >60 Normal [facility] Comment on above: Performed By: #### A CBC #### [place] [address] GFR/1.73 sq M predicted among non-blacks MDRD (S/P/Bld) [Vol rate/Area] Average GFR for 30-39 years old = 109. Normal [facility] Comment on above: Result Comment: Data Entry Assistant rian Kidney disease, GFR = <60. Kidney failure, GFR = <15. The GFR estimate is not adjusted for extreme body surface area or acute process, nor has it been validated for women or ethnic groups other than and . Performed By: #### A CBC #### Testing performed at [place] [id number] Glucose [Mass/Vol] 74 mg/dL Normal 70-100 [facility] Comment on above: Result Comment: NORMAL <100 mg/dL PREDIABETES 101-126 mg/dL DIABETES 126 mg/dL or higher Performed By: #### A CBC #### Testing performed at [place] [address] [place] [address] Potassium [Moles/Vol] 4.0 mmol/L Normal 3.5-5.1 [facility] Comment on above: Performed By: #### A CBC #### Testing performed at [address] [address] Protein [Mass/Vol] 8.1 g/dL Normal 6.3-8.2 [facility] Comment on above: Performed By: #### A CBC #### Testing performed at [address] [address] Sodium [Moles/Vol] 138 mmol/L Normal 137-145 [facility] Comment on above: Performed By: #### A CBC #### Testing performed at [address] [address] Urea nitrogen [Mass/Vol] 17 mg/dL Normal 7-20 [facility] Comment on above: Performed By: #### A CBC #### Testing performed at [address] [address] COMPREHENSIVE METABOLIC PANE [facility] 06-25-2019 Albumin [Mass/Vol] 4.5 G/dl 3.5 - 5 G/dl [facility] [employer] Albumin/Globulin [Mass ratio] 1.3 {ratio} [facility] Per[employer] ALP [Catalytic activity/Vol] 76 U/L [facility] ALT [Catalytic activity/Vol] 32 U/L [facility] [employer] AST [Catalytic activity/Vol] 23 U/L [facility] [employer] Bilirubin [Mass/Vol] 0.3 mg/dL [facility] [employer] Calcium [Mass/Vol] 9.2 mg/dL [facility] [employer] Chloride [Moles/Vol] 101 mmol/L [facility] [employer] [employer] Comment on above: Please note: Triglyc eride levels of 600mg/dL or higher may positively bias chloride results by approximately 2.1 mmol CO2 [Moles/Vol] 26 mmol/L [place] Creatinine [Mass/Vol] 0.71 mg/dL [facility] GFR/1.73 sq M predicted among blacks MDRD (S/P/Bld) [Vol rate/Area] mL/min/{1.73_m2} ml/min/1.73sq. m [facility] GFR/1.73 sq M predicted among non-blacks MDRD (S/P/Bld) [Vol rate/Area] mL/min/{1.73_m2} ml/min/1.73sq. m [facility] GFR/1.73 sq M predicted among non-blacks MDRD (S/P/Bld) [Vol rate/Area] Average GFR for 30-39 years old = 109. [facility] Comment on above: Chronic Kidney disea se, GFR = <60. Kidney failure, GFR = <15. The GFR estimate is not adjusted for extreme body surface area or acute process, nor has it been validated for women or ethnic groups other than and . Glucose post fast [Mass/Vol] 74 mg/dL [facility] Comment on above: NORMAL <100 mg/dL PREDIABETES 101-126 mg/dL DIABETES 126 mg/dL or higher Potassium [Moles/Vol] 4.0 mmol/L [facility] Protein [Mass/Vol] 8.1 g/dL [facility] Sodium [Moles/Vol] 138 mmol/L [facility] Urea nitrogen [Mass/Vol] 17 mg/dL [facility] CBCon 01-19-2019 ABSOLUTE BAS 0.1 10*3/uL Normal 0.0-0.2 [facility] ABSOLUTE EOS 0.20 10*3/uL Normal 0.0-0.7 [facility] ABSOLUTE NEUTROPHIL COUNT 6.6 10*3/uL High 1.4-6.5 [facility] Basophils/100 WBC (Bld) 0.6 % Normal 0.0-2.0 [facility] DTYPE AUTO DIFF Normal [facility] Eosinophils/100 WBC (Bld) 1.6 % Normal 0.0-11.0 [facility] Lymphocytes (Bld) [#/Vol] 2.80 10*3/uL Normal 1.2-3.4 [facility] Lymphocytes/100 WBC (Bld) 27.1 % Normal 20.0-55.0 [facility] Monocytes (Bld) [#/Vol] 0.6 10*3/uL Normal 0.0-0.7 [facility] Monocytes/100 WBC (Bld) 5.9 % Normal 0.0-10.0 [facility] Neutrophils/100 WBC (Bld) 64.8 % Normal 37.0-75.0 [facility] Erythrocyte distribution width (RBC) [Ratio] 14.5 % Normal 11.5-14.5 [facility] Hematocrit (Bld) [Volume fraction] 41.6 % Normal 36.0-48.0 [facility] Hemoglobin (Bld) [Mass/Vol] 14.4 g/dL Normal 12.0-16.0 [facility] MCH (RBC) [Entitic mass] 31.2 pg Normal 26.0-35.0 [facility] MCHC (RBC) [Mass/Vol] 34.6 g/dL Normal 27.0-37.0 [facility] MCV (RBC) [Entitic vol] 90.1 fL Normal 80.0-100.0 [facility] Platelet mean volume (Bld) [Entitic vol] 8.3 fL Normal 7.4-11.0 [facility] Platelets (Bld) [#/Vol] 305 10*3/uL Normal 130.0-400.0 [facility] RBC (Bld) [#/Vol] 4.62 10*6/uL Normal 4.0-5.4 [facility] WBC (Bld) [#/Vol] 10.2 10*3/uL Normal 3.6-11.0 [facility] CMP FASTINGon 01-19-2019 A:G RATIO 1.1 RATIO Low 1.3-2.2 [facility] Albumin [Mass/Vol] 4.0 G/dl Normal 3.5-5.0 [facility] ALP [Catalytic activity/Vol] 83 U/L Normal 38-126 [facility] ALT [Catalytic activity/Vol] 30 U/L Normal 9-52 [facility] AST [Catalytic activity/Vol] 28 U/L Normal 14-36 [facility] Bilirubin [Mass/Vol] 0.4 mg/dL Normal 0.2-1.3 [facility] Calcium [Mass/Vol] 9.4 mg/dL Normal 8.4-10.2 [facility] Chloride [Moles/Vol] 103 mmol/L Normal 98-107 [facility] Comment on above: Result Comment: Ryan berg note: Triglyceride levels of 600mg/dL or higher may positively bias chloride results by approximately 2.1 mmol CO2 [Moles/Vol] 27 mmol/L Normal 22-30 [facility] Creatinine [Mass/Vol] 0.71 mg/dL Normal 0.7-1.2 [facility] EST. GFR, >60 Normal [facility] EST. GFR,Non >60 Normal [facility] GFR/1.73 sq M predicted among non-blacks MDRD (S/P/Bld) [Vol rate/Area] Average GFR for 30-39 years old = 109. Normal [facility] Comment on above: Result Comment: Data Entry Assistant rian Kidney disease, GFR = <60. Kidney failure, GFR = <15. The GFR estimate is not adjusted for extreme body surface area or acute process, nor has it been validated for women or ethnic groups other than and . Glucose [Mass/Vol] 106 mg/dL High 70-100 [facility] Comment on above: Result Comment: NORMAL <100 mg/dL PREDIABETES 101-126 mg/dL DIABETES 126 mg/dL or higher Potassium [Moles/Vol] 3.7 mmol/L Normal 3.5-5.1 [facility] Protein [Mass/Vol] 7.6 g/dL Normal 6.3-8.2 [facility] Sodium [Moles/Vol] 139 mmol/L Normal 137-145 [facility] Urea nitrogen [Mass/Vol] 12 mg/dL Normal 7-20 [facility] LIPID PROFILEon 01-19-2019 Cholesterol [Mass/Vol] 149 mg/dL Normal 107-217 [facility] Cholesterol in HDL [Mass/Vol] 33 mg/dL Normal 33-75 [facility] Cholesterol in LDL [Mass/Vol] 106 mg/dL Normal [facility] Cholesterol in VLDL [Mass/Vol] 10 mg/dL Normal 5.0-25 [facility] Cholesterol.total/Ch olesterol in HDL [Mass ratio] 4.52 {ratio} Normal [facility] Comment on above: Result Comment: RISK TOTAL/HDL RATIO MEN WOMEN 1/2 AVERAGE 3.43 3.27 AVERAGE 4.97 4.44 2X AVERAGE 9.55 7.05 3X AVERAGE 23.99 11.04 Triglyceride [Mass/Vol] 50 mg/dL Normal 0-150 [facility] TSH,REFLEX FREE T4on 019 TSH,REFLEX FREE T4 2.420 uIU/ML Normal 0.46-4.68 [facility] XR FOOT RIGHT 3+ VIEWS [...] consideration. 3. No acute fracture or dislocation. [employer] Workstation ID: [id number] Dictated by: BRIT RIVERA on FriOct 13, 2018 11:33:21 AM EDT Transcribed by: ABDIRIZAK FERNANDEZ on FriOct 13, 2018 11:39:27 AM EDT Finalized by: BRIT RIVERA on FriOct 13, 2018 3:49:26 PM EDT Normal [facility] Comment on above: Order Comment: Injur y/Trauma or Illness?:Injury/Trauma How long have you had these symptoms (acute/chronic)?:Acute Reason for exam?:pain History of cancer?:na Surgeries, chemotherapy, or radiation?:na Type of Exam?:Initial Mechanism of injury?:running on treadmill Vital Signs Date Time Vital Sign Value Performing Clinician Facility 03-02-2024 10:41-0500 Body mass index (BMI) [Ratio] 55.02 kg/m2 Hawk Héctor DO Work Phone: [facility] 03-02-2024 10:41-0500 Body weight 136.44 kg Hawk Héctor DO Work Phone: [facility] 03-02-2024 10:41-0500 Diastolic blood pressure 76 mm[Hg] Hawk Héctor DO Work Phone: [facility] 03-02-2024 10:41-0500 Systolic blood pressure 118 mm[Hg] Hawk Héctor DO Work Phone: [facility] 01-12-2024 10:02-0400 Body height 157.5 cm Alyssa Samy OCAMPO Work Phone: [facility] 01-12-2024 10:02-0400 Body mass index (BMI) [Ratio] 53.48 kg/m2 Alyssa Prakash CNP Work Phone: [facility] 01-12-2024 10:02-0400 Body weight 132.63 kg Alyssamagdalene OteroNotasulgaamadeo OCAMPO Work Phone: [facility] Comment on above: ACTUAL WEIGHT 08-19-2023 09:00-0400 Diastolic blood pressure 91 mm[Hg] Ariana CONLEY-Hammad Work Phone: [facility] 08-19-2023 09:00-0400 Systolic blood pressure 129 mm[Hg] Ariana CONLEY-C Work Phone: [facility] 08-19-2023 08:38-0400 Body height 157.5 cm Ariana Conniff PA-C Work Phone: [facility] 08-19-2023 08:38-0400 Body mass index (BMI) [Ratio] 54.43 kg/m2 Ariana Conniff PA-C Work Phone: [facility] 08-19-2023 08:38-0400 Body weight 134.99 kg Ariana Conniff PA-C Work Phone: [facility] 08-19-2023 08:38-0400 Heart rate 86 /min Ariana Conniff PA-C Work Phone: [facility] 08-19-2023 08:38-0400 SaO2% (BldA) [Mass fraction] 97 % Ariana Conniff PA-C Work Phone: [facility] 05-14-2023 10:15-0500 Body height 157.5 cm Ashley Mcdaniel III, MD Work Phone: [facility] 05-14-2023 10:15-0500 Body mass index (BMI) [Ratio] 54.29 kg/m2 Ashley Mcdaniel III, MD Work Phone: [facility] 05-14-2023 10:15-0500 Body weight 134.63 kg Ashley Mcdaniel III, MD Work Phone: [facility] 05-14-2023 10:15-0500 Diastolic blood pressure 83 mm[Hg] Ashley Mcdaniel III, MD Work Phone: [facility] 05-14-2023 10:15-0500 Heart rate 95 /min Ashley Mcdaniel III, MD Work Phone: [facility] 05-14-2023 10:15-0500 SaO2% (BldA) [Mass fraction] 95 % Ashley Mcdaniel III, MD Work Phone: [facility] 05-14-2023 10:15-0500 Systolic blood pressure 139 mm[Hg] Ashley Mcdaniel III, MD Work Phone: [facility] 04-01-2023 10:01-0500 Diastolic blood pressure 90 mm[Hg] Ariana Conniff PA-C Work Phone: [facility] 04-01-2023 10:01-0500 Systolic blood pressure 128 mm[Hg] Ariana Conniff PA-C Work Phone: [facility] 04-01-2023 09:40-0500 Body height 157.5 cm Ariana Conniff PA-C Work Phone: [facility] 04-01-2023 09:40-0500 Body mass index (BMI) [Ratio] 53.96 kg/m2 Ariana Conniff PA-C Work Phone: [facility] 04-01-2023 09:40-0500 Body weight 133.81 kg Ariana Conniff PA-C Work Phone: [facility] 04-01-2023 09:40-0500 Heart rate 96 /min Ariana Conniff PA-C Work Phone: [facility] 04-01-2023 09:40-0500 SaO2% (BldA) [Mass fraction] 94 % Ariana Conniff PA-C Work Phone: [facility] 01-23-2023 09:44-0400 Body height 157.5 cm Ariana Conniff PA-C Work Phone: [facility] 01-23-2023 09:44-0400 Body mass index (BMI) [Ratio] 53.41 kg/m2 Ariana Conniff PA-C Work Phone: [facility] 01-23-2023 09:44-0400 Body weight 132.45 kg Ariana Conniff PA-C Work Phone: [facility] 01-23-2023 09:44-0400 Diastolic blood pressure 88 mm[Hg] Ariana Conniff PA-C Work Phone: [facility] 01-23-2023 09:44-0400 Heart rate 91 /min Ariana Conniff PA-C Work Phone: [facility] 01-23-2023 09:44-0400 SaO2% (BldA) [Mass fraction] 98 % Ariana Conniff PA-C Work Phone: [facility] 01-23-2023 09:44-0400 Systolic blood pressure 120 mm[Hg] Ariana Conniff PA-C Work Phone: [facility] 09-04-2022 09:14-0400 Diastolic blood pressure 80 mm[Hg] Ariana Conniff PA-C Work Phone: [facility] 09-04-2022 09:14-0400 Systolic blood pressure 121 mm[Hg] Ariana Conniff PA-C Work Phone: [facility] 09-04-2022 08:56-0400 Body height 157.5 cm Ariana Conniff PA-C Work Phone: [facility] 09-04-2022 08:56-0400 Body mass index (BMI) [Ratio] 53.22 kg/m2 Ariana Conniff PA-C Work Phone: [facility] 09-04-2022 08:56-0400 Body weight 132 kg Ariana Conniff PA-C Work Phone: [facility] 09-04-2022 08:56-0400 Heart rate 88 /min Ariana Conniff PA-C Work Phone: [facility] 09-04-2022 08:56-0400 SaO2% (BldA) [Mass fraction] 96 % Ariana Conniff PA-C Work Phone: [facility] 05-28-2022 10:51-0500 Body height 157.5 cm Ariana Conniff PA-C Work Phone: [facility] 05-28-2022 10:51-0500 Body mass index (BMI) [Ratio] 52.86 kg/m2 Ariana Conniff PA-C Work Phone: [facility] 05-28-2022 10:51-0500 Body weight 131.09 kg Ariana Conniff PA-C Work Phone: [facility] 05-28-2022 10:51-0500 Diastolic blood pressure 69 mm[Hg] Ariana Conniff PA-C Work Phone: [facility] 05-28-2022 10:51-0500 Heart rate 92 /min Ariana Conniff PA-C Work Phone: [facility] 05-28-2022 10:51-0500 SaO2% (BldA) [Mass fraction] 95 % Ariana Conniff PA-C Work Phone: [facility] 05-28-2022 10:51-0500 Systolic blood pressure 139 mm[Hg] Ariana Conniff PA-C Work Phone: [facility] 03-05-2022 15:41-0500 Body height 157.5 cm Ariana Conniff PA-C Work Phone: [facility] 03-05-2022 15:41-0500 Body mass index (BMI) [Ratio] 54.69 kg/m2 Ariana Conniff PA-C Work Phone: [facility] 03-05-2022 15:41-0500 Body weight 135.63 kg Ariana Conniff PA-C Work Phone: [facility] 03-05-2022 15:41-0500 Diastolic blood pressure 89 mm[Hg] Ariana Conniff PA-C Work Phone: [facility] 03-05-2022 15:41-0500 Heart rate 83 /min Ariana Conniff PA-C Work Phone: [facility] 03-05-2022 15:41-0500 SaO2% (BldA) [Mass fraction] 96 % Ariana Conniff PA-C Work Phone: [facility] 03-05-2022 15:41-0500 Systolic blood pressure 132 mm[Hg] Ariana Conniff PA-C Work Phone: [facility] 02-05-2022 09:38-0400 Diastolic blood pressure 89 mm[Hg] Ariana Conniff PA-C Work Phone: [facility] 02-05-2022 09:38-0400 Systolic blood pressure 140 mm[Hg] Ariana Conniff PA-C Work Phone: [facility] 02-05-2022 08:42-0400 Body height 157.5 cm Ariana Conniff PA-C Work Phone: [facility] 02-05-2022 08:42-0400 Body mass index (BMI) [Ratio] 54.69 kg/m2 Ariana Conniff PA-C Work Phone: [facility] 02-05-2022 08:42-0400 Body weight 135.63 kg Ariana Conniff PA-C Work Phone: [facility] 02-05-2022 08:42-0400 Heart rate 100 /min Ariana Conniff PA-C Work Phone: [facility] 02-05-2022 08:42-0400 SaO2% (BldA) [Mass fraction] 96 % Ariana Conniff PA-C Work Phone: [facility] 10-01-2021 09:28-0400 Body height 157.5 cm Ashley Mcdaniel III, MD Work Phone: [facility] 10-01-2021 09:28-0400 Body mass index (BMI) [Ratio] 53.55 kg/m2 Ashley Mcdaniel III, MD Work Phone: [facility] 10-01-2021 09:28-0400 Body weight 132.81 kg Ashley Mcdaniel III, MD Work Phone: [facility] 10-01-2021 09:28-0400 Diastolic blood pressure 88 mm[Hg] Ashley Mcdaniel III, MD Work Phone: [facility] 10-01-2021 09:28-0400 Heart rate 87 /min Ashley Mcdaniel III, MD Work Phone: [facility] 10-01-2021 09:28-0400 SaO2% (BldA) [Mass fraction] 96 % Ashley Mcdaniel III, MD Work Phone: [facility] 10-01-2021 09:28-0400 Systolic blood pressure 128 mm[Hg] Ashley Mcdaniel III, MD Work Phone: [facility] 09-10-2021 11:02-0400 Body height 157.5 cm Priya Zamorayon FINANCIAL ACCOUNTING MANAGER Work Phone: [facility] 09-10-2021 11:02-0400 Body mass index (BMI) [Ratio] 52.57 kg/m2 Priya Ania FINANCIAL ACCOUNTING MANAGER Work Phone: [facility] 09-10-2021 11:02-0400 Body weight 130.36 kg Priya Ania FINANCIAL ACCOUNTING MANAGER Work Phone: [facility] 09-10-2021 11:02-0400 Diastolic blood pressure 94 mm[Hg] Priya Ania FINANCIAL ACCOUNTING MANAGER Work Phone: [facility] 09-10-2021 11:02-0400 Heart rate 89 /min Priya Ania FINANCIAL ACCOUNTING MANAGER Work Phone: [facility] 09-10-2021 11:02-0400 Systolic blood pressure 139 mm[Hg] Priya Ania FINANCIAL ACCOUNTING MANAGER Work Phone: [facility] 08-04-2020 10:26-0400 BMI (Body Mass Index) 47.47 kg/m2 sandee [facility] 08-04-2020 10:26-0400 Body Temperature 98.2 [degF] [facility] 08-04-2020 10:26-0400 Body weight 121.56 kg [facility] 08-04-2020 10:26-0400 BP Diastolic 87 mm[Hg] [facility] 08-04-2020 10:26-0400 BP Systolic 133 mm[Hg] [facility] 08-04-2020 10:26-0400 Height 160 cm [facility] 08-04-2020 10:26-0400 Pulse (Heart Rate) 79 /min [facility] 08-04-2020 10:26-0400 Pulse Oximetry 96 % Maikel Leal [facility] 12-14-2019 09:32-0400 BMI (Body Mass Index) 49.19 kg/m2 [facility] 12-14-2019 09:32-0400 Body Temperature 98.1 [degF] [facility] 12-14-2019 09:32-0400 Body weight 134.08 kg [facility] 12-14-2019 09:32-0400 BP Diastolic 88 mm[Hg] [facility] 12-14-2019 09:32-0400 BP Systolic 130 mm[Hg] [facility] 12-14-2019 09:32-0400 Height 165.1 cm [facility] 12-14-2019 09:32-0400 Pulse (Heart Rate) 95 /min [facility] 12-14-2019 09:32-0400 Pulse Oximetry 96 % [facility] 12-07-2019 10:33-0400 BMI (Body Mass Index) 49.34 kg/m2 [facility] 12-07-2019 10:33-0400 Body Temperature 98.8 [degF] [facility] 12-07-2019 10:33-0400 Body weight 133.36 kg [facility] 12-07-2019 10:33-0400 BP Diastolic 74 mm[Hg] [facility] 12-07-2019 10:33-0400 BP Systolic 126 mm[Hg] [facility] 12-07-2019 10:33-0400 Height 164.4 cm [facility] 12-07-2019 10:33-0400 Pulse (Heart Rate) 84 /min [facility] 12-07-2019 10:33-0400 Pulse Oximetry 97 % [facility] 12-07-2019 10:33-0400 Respiratory Rate 14 /min [facility] 12-06-2019 00:21-0400 BP Diastolic 92 mm[Hg] [facility] 12-06-2019 00:21-0400 BP Systolic 138 mm[Hg] [facility] 12-06-2019 00:21-0400 Pulse (Heart Rate) 88 /min [facility] 12-06-2019 00:21-0400 Respiratory Rate 18 /min [facility] 12-05-2019 21:32-0400 Body Temperature 99.1 [degF] [facility] 12-05-2019 21:32-0400 Pulse Oximetry 97 % [facility] 06-25-2019 13:18-0500 BMI (Body Mass Index) 49.86 kg/m2 [facility] 06-25-2019 13:18-0500 Body Temperature 98.1 [degF] [facility] 06-25-2019 13:18-0500 Body weight 123.65 kg [facility] 06-25-2019 13:18-0500 BP Diastolic 82 mm[Hg] [facility] 06-25-2019 13:18-0500 BP Systolic 160 mm[Hg] [facility] 06-25-2019 13:18-0500 Height 157.5 cm [facility] 06-25-2019 13:18-0500 Pulse (Heart Rate) 85 /min [facility] 06-25-2019 13:18-0500 Pulse Oximetry 98 % [facility] 06-25-2019 13:18-0500 Respiratory Rate 14 /min [facility] 06-10-2019 08:16-0500 BMI (Body Mass Index) 49.35 kg/m2 [facility] 06-10-2019 08:16-0500 Body Temperature 97.39 [degF] [facility] 06-10-2019 08:16-0500 Body weight 122.38 kg [facility] 06-10-2019 08:16-0500 BP Diastolic 80 mm[Hg] [facility] 06-10-2019 08:16-0500 BP Systolic 110 mm[Hg] [facility] 06-10-2019 08:16-0500 Height 157.5 cm [facility] 06-10-2019 08:16-0500 Pulse (Heart Rate) 94 /min [facility] 06-10-2019 08:16-0500 Pulse Oximetry 97 % [facility] 06-10-2019 08:16-0500 Respiratory Rate 14 /min [facility] 03-17-2019 09:02-0500 BMI (Body Mass Index) 49.49 kg/m2 [facility] 03-17-2019 09:02-0500 Body Temperature 98.1 [degF] [facility] 03-17-2019 09:02-0500 Body weight 122.74 kg [facility] 03-17-2019 09:02-0500 BP Diastolic 74 mm[Hg] [facility] 03-17-2019 09:02-0500 BP Systolic 110 mm[Hg] [facility] 03-17-2019 09:02-0500 Height 157.5 cm [facility] 03-17-2019 09:02-0500 Pulse (Heart Rate) 100 /min [facility] 03-17-2019 09:02-0500 Pulse Oximetry 97 % [facility] 03-17-2019 09:02-0500 Respiratory Rate 16 /min [facility] 01-25-2019 13:10-0400 BMI (Body Mass Index) 51.4 kg/m2 [facility] 01-25-2019 13:10-0400 Body Temperature 98.4 [degF] [facility] 01-25-2019 13:10-0400 Body weight 127.46 kg [facility] 01-25-2019 13:10-0400 BP Diastolic 80 mm[Hg] [facility] 01-25-2019 13:10-0400 BP Systolic 117 mm[Hg] [facility] 01-25-2019 13:10-0400 Height 157.5 cm [facility] 01-25-2019 13:10-0400 Pulse (Heart Rate) 84 /min [facility] 01-25-2019 13:10-0400 Pulse Oximetry 97 % [facility] 01-25-2019 13:10-0400 Respiratory Rate 16 /min [facility] 11-24-2018 13:35-0400 BMI (Body Mass Index) 48.08 kg/m2 [facility] 11-24-2018 13:35-0400 Body Temperature 98.29 [degF] [facility] 11-24-2018 13:35-0400 Body weight 130.91 kg [facility] 11-24-2018 13:35-0400 BP Diastolic 84 mm[Hg] [facility] 11-24-2018 13:35-0400 BP Systolic 108 mm[Hg] [facility] 11-24-2018 13:35-0400 Height 165 cm [facility] 11-24-2018 13:35-0400 Pulse (Heart Rate) 85 /min [facility] 11-24-2018 13:35-0400 Pulse Oximetry 97 % [facility] 11-24-2018 13:35-0400 Respiratory Rate 14 /min [facility] 10-13-2018 11:26-0400 BP Diastolic 89 mm[Hg] Yasmin [facility] Comment on above: Rechecked [facility] 10-13-2018 11:26-0400 BP Systolic 142 mm[Hg] Yasmin [facility] Comment on above: Rechecked [facility] 10-13-2018 11:02-0400 BMI (Body Mass Index) 44.99 kg/m2 Yasmin [facility] 10-13-2018 11:02-0400 Body Temperature 98.29 [degF] Yasmin [facility] 10-13-2018 11:02-0400 Height 160 cm Yasmin [facility] 10-13-2018 11:02-0400 Pulse (Heart Rate) 84 /min Yasmin [facility] 10-13-2018 11:02-0400 Pulse Oximetry 98 % Yasmin [facility] 10-13-2018 11:02-0400 Respiratory Rate 18 /min Yasmin Brown [facility] 10-13-2018 11:02-0400 Weight 115.21 kg Yasmin Brown [facility] 03-18-2018 23:39-0500 BP Diastolic 77 mm[Hg] [facility] Work Phone: 03-18-2018 23:39-0500 BP Systolic 133 mm[Hg] [facility] Work Phone: 03-18-2018 23:39-0500 Pulse (Heart Rate) 85 /min [facility] Work Phone: 03-18-2018 23:39-0500 Pulse Oximetry 97 % [facility] Work Phone: 03-18-2018 23:39-0500 Respiratory Rate 18 /min [facility] Work Phone: 03-18-2018 22:16-0500 Height 157.5 cm [facility] Work Phone: 03-18-2018 22:14-0500 Body Temperature 98.01 [degF] [facility] Work Phone: Encounters Encounter Date Encounter Type Care Provider Facility Start: 03-02-2024 End: 03-02-2024 Bamboo flowsheet Hawk Héctor DO Work Phone: [facility] Start: 03-02-2024 End: 03-02-2024 Bamboo flowsheet Hawk Héctor DO Work Phone: [facility] Start: 03-02-2024 End: 03-02-2024 Office outpatient visit 15 minutes Hawk Héctor DO Work Phone: [facility] Comment on above: Pre-op examination; Menorrhagia with regular cycle; Pelvic pain in female; Dysmenorrhea; Dyspareunia in female Start: 03-02-2024 End: 03-02-2024 Preprocedural examination done Hawk Héctor DO Work Phone: [facility] Start: 03-02-2024 End: 03-02-2024 ambulatory HAWK HÉCTOR Not Available Start: 02-13-2024 End: 02-13-2024 Clinisync Result Encounter Hawk Héctor DO Work Phone: [facility] Unsolicited Start: 02-13-2024 End: 02-13-2024 Clinisync Result Encounter Hawk Héctor DO Work Phone: [facility] Unsolicited Start: 02-13-2024 End: 02-13-2024 ambulatory Hawk Héctor [facility] Work Phone: Start: 02-13-2024 End: 02-13-2024 Departed Referred DO Hawk Héctor Work Phone: [facility] Start: 01-26-2024 End: 01-26-2024 ambulatory ALYSSA PRAKASH [facility] Start: 01-20-2024 End: 01-27-2024 Clinisync Result Encounter Hawk Héctor DO Work Phone: [facility] Unsolicited Start: 01-20-2024 End: 01-27-2024 Clinisync Result Encounter Hawk Héctor DO Work Phone: [facility] Unsolicited Start: 01-20-2024 End: 01-20-2024 ambulatory HAWK HÉCTOR Not Available Start: 01-12-2024 End: 01-12-2024 Office outpatient new 45 minutes Alyssa Prakash FINANCIAL ACCOUNTING MANAGER Work Phone: [facility] Comment on above: Abscess of right ping ast (Primary Dx); Family history of breast cancer Start: 01-12-2024 End: 01-12-2024 ambulatory ARIANA GARAZ [facility] Ambulatory Start: 12-31-2023 End: 12-31-2023 ambulatory Sasha Alcala Facility:[facility] Start: 12-30-2023 End: 12-30-2023 ambulatory HAWK ANAYA Not Available Start: 12-15-2023 End: 12-15-2023 ambulatory HAWK ANAYA Not Available Start: 11-27-2023 End: 11-27-2023 Office outpatient visit 10 minutes Tracy Alejandre MD Work Phone: [facility] Comment on above: Abscess of breast (P rimary Dx); Cellulitis of right breast Start: 11-27-2023 End: 11-27-2023 ambulatory RAIANA GARZA [facility] Start: 11-06-2023 End: 11-06-2023 Office outpatient visit 15 minutes Tracy Alejandre MD Work Phone: [facility] Comment on above: Abscess of breast (P rimary Dx); Cellulitis of right breast Start: 11-06-2023 End: 11-06-2023 ambulatory ARIANA GARZA [facility] Start: 10-22-2023 End: 10-22-2023 Office outpatient visit 15 minutes Ariana Garza PA-C Work Phone: [facility] Comment on above: Cellulitis of right breast (Primary Dx); History of lump of right breast; Abscess of breast Start: 10-22-2023 End: 10-26-2023 ambulatory ARIANA GARZA [facility] Start: 10-17-2023 End: 10-17-2023 ambulatory ARIANAIsaias LEON [facility][1] Start: 10-17-2023 End: 10-21-2023 ambulatory ARIANAIsaias LEON [facility][1] Start: 10-16-2023 End: 10-16-2023 Office outpatient visit 15 minutes Nicole Dean PA-C Work Phone: [facility] Comment on above: Cellulitis of right breast (Primary Dx); Mastitis Start: 10-16-2023 End: 10-16-2023 ambulatory NICOLE DEAN [facility] Start: 09-30-2023 End: 09-30-2023 Office outpatient new 30 minutes Tracy Alejandre MD Work Phone: [facility] Comment on above: Mastitis (Primary Dx ) Start: 09-30-2023 End: 09-30-2023 ambulatory TRACY ALEJANDRE II [facility] Start: 08-19-2023 End: 08-19-2023 Office outpatient visit 25 minutes Ariana Garza PA-C Work Phone: [facility] Comment on above: Current moderate epi sode of major depressive disorder without prior episode (HCC) (Primary Dx); Prediabetes; Mastitis Start: 08-19-2023 End: 08-19-2023 ambulatory ARIANA GARZA [facility] Start: 07-03-2023 Coordination of care plan Cheri Hammond RN Patient Navigator Start: 07-03-2023 Documentation procedure Shari Tay [facility] General Surgery Comment on above: Results Start: 07-01-2023 Coordination of care plan Harper Gates RN Patient Navigator Start: 07-01-2023 End: 07-02-2023 ambulatory CATRACHITO WHYTE [facility] Start: 06-18-2023 End: 06-18-2023 Orders Only Ashley Mcdaniel MD Work Phone: [facility] Start: 05-14-2023 End: 05-14-2023 Transcribe Orders Ashley Mcdaniel MD Work Phone: [facility] Comment on above: Family history of br east cancer (Primary Dx) Nipple discharge (Pr imary Dx); Family history of breast cancer in first degree relative Start: 05-14-2023 End: 05-14-2023 Office outpatient new 20 minutes Ashley Mcdaniel MD Work Phone: [facility] General Surgery Comment on above: Galactorrhea Start: 04-25-2023 End: 04-25-2023 ambulatory ARIANA GARZA [facility] Start: 04-11-2023 End: 04-11-2023 ambulatory ARIANA LEON [facility][1] Start: 04-01-2023 End: 04-01-2023 Office outpatient visit 15 minutes Ariana Garza PA-C Work Phone: [facility] Comment on above: Discharge from right nipple (Primary Dx) Start: 04-01-2023 End: 04-05-2023 ambulatory ARIANA LEON [facility][1] Start: 01-23-2023 End: 01-23-2023 Office outpatient visit 25 minutes Ariana Garza PA-C Work Phone: [facility] Comment on above: Current moderate epi sode of major depressive disorder without prior episode (HCC) (Primary Dx); Prediabetes; Multiple joint complaints Start: 01-23-2023 End: 01-23-2023 ambulatory ARIANA GARZA [facility] Start: 09-04-2022 End: 09-04-2022 Office outpatient visit 15 minutes Ariana Garza PA-C Work Phone: [facility] Comment on above: Prediabetes (Primary Dx); Current moderate episode of major depressive disorder without prior episode (HCC) Start: 05-28-2022 End: 05-28-2022 Office outpatient visit 15 minutes Ariana Garza PA-C Work Phone: [facility] Comment on above: Current moderate epi sode of major depressive disorder without prior episode (HCC) (Primary Dx); Overactive bladder Start: 03-05-2022 End: 03-05-2022 Office outpatient visit 15 minutes Ariana Browniff PA-C Work Phone: [facility] Comment on above: Current moderate epi sode of major depressive disorder without prior episode (HCC) (Primary Dx); Needs flu shot Start: 02-05-2022 End: 02-05-2022 Office outpatient visit 15 minutes Ariana Leon Conniff PA-C Work Phone: [facility] Comment on above: Current moderate epi sode of major depressive disorder without prior episode (HCC) (Primary Dx) Start: 10-02-2021 Documentation procedure Shari Tay CMA [facility] Start: 10-01-2021 Coordination of care plan Elisha ross RN Patient Navigator Start: 10-01-2021 End: 10-01-2021 Office outpatient new 20 minutes Ashley Mcdaniel MD Work Phone: [facility] Comment on above: Abnormal mammogram o f right breast (Primary Dx) Start: 09-21-2021 Coordination of care plan Elisha ross RN Patient Navigator Comment on above: Mass of right breast , unspecified quadrant (Primary Dx) Start: 09-10-2021 End: 09-10-2021 Office outpatient new 30 minutes Priya Jorge FINANCIAL ACCOUNTING MANAGER Work Phone: [facility] Comment on above: Suppurative hidraden itis (Primary Dx); Family history of breast cancer; Encounter for screening for malignant neoplasm of breast, unspecified screening modality Start: 04-29-2021 Orders Only Harper sanchez FINANCIAL ACCOUNTING MANAGER Work Phone: [facility] Comment on above: Encntr for obs for s care home expsr to oth biolg agents ruled out (Primary Dx) Start: 12-09-2020 End: 12-09-2020 Emergency department patient visit ROXIE CHRIS [facility] Start: 08-04-2020 End: 08-04-2020 Initial preventive medicine new pt age 18-39yrs Maikel Leal Work Phone: [facility] Comment on above: Well adult health ch tiarra (Primary Dx) Start: 01-05-2020 End: 01-05-2020 ambulatory PHYSICIAN [facility] Start: 12-14-2019 End: 12-14-2019 Office outpatient visit 15 minutes Lana Lombardi Work Phone: [facility] Comment on above: Essential hypertensi on (Primary Dx); Post-traumatic stress Start: 12-07-2019 End: 12-07-2019 Office outpatient visit 15 minutes Lana Lombardi Work Phone: [facility] Comment on above: Chronic right-sided low back pain with bilateral sciatica (Primary Dx); Menorrhagia with regular cycle Start: 12-05-2019 End: 12-06-2019 Emergency department patient visit Surekha Quintanilla Work Phone: [facility] Start: 06-25-2019 End: 06-25-2019 Subsequent hospital visit by physician Lana Lombardi Work Phone: [facility] [employer] Comment on above: Arrived Start: 06-25-2019 End: 06-25-2019 Office outpatient visit 15 minutes Lana Lombardi Work Phone: [facility] Comment on above: Essential hypertensi on (Primary Dx); Long Q-T syndrome; Tobacco use Start: 06-10-2019 End: 06-10-2019 Office outpatient visit 15 minutes Lana Lombardi Work Phone: [facility] Comment on above: Post-traumatic stres s (Primary Dx) Start: 03-17-2019 End: 03-17-2019 Office outpatient visit 15 minutes Lana Lombardi Work Phone: [facility] Comment on above: Post-traumatic stres s (Primary Dx) Start: 02-01-2019 End: 02-01-2019 Telephone encounter Mady Hunter [facility] Comment on above: Other Start: 01-25-2019 End: 01-25-2019 Office outpatient visit 15 minutes Lana Lombardi Work Phone: [facility] Comment on above: Post-traumatic stres s (Primary Dx) Start: 01-21-2019 End: 01-21-[address] [facility] Comment on above: Results Start: 01-19-2019 End: 01-19-2019 Letter encounter Lana Lombardi Work Phone: [facility] Start: 11-24-2018 End: 11-24-2018 Initial preventive medicine new pt age 18-39yrs Lana Lombardi Work Phone: [facility] Comment on above: Encounter for well w hortensia exam without gynecological exam (Primary Dx); Elevated TSH; BMI 45.0-49.9, adult Start: 10-13-2018 End: 10-17-2018 Patient encounter procedure YASMIN REENA BROWN [facility] Start: 10-13-2018 End: 10-13-2018 Office outpatient new 20 minutes Yasmin Valles Stephanie Work Phone: [facility] Comment on above: Foot pain, right (Pr imary Dx); Elevated blood pressure reading; Tobacco use Start: 03-18-2018 End: 03-18-2018 Emergency department patient visit [employer] Work Phone: [facility] Emergency Medicine Procedures Date Procedure Procedure Detail Performing Clinician Start: 02-13-2024 ALL CBC WITH AUTO DIFF Hawk Héctor DO Work Phone: Start: 01-20-2024 IGP,APTIMA HPV,AGE GDLN Hawk Héctor DO Work Phone: Start: 08-04-2020 Adult depression scr eening assessment Maikel Leal Start: 05-08-2020 Microscopic observat ion [Identifier] in Cervix by Cyto stain Maikel Leal Start: 12-05-2019 CT of thoracic spine Il lianna Olga Quintanilla Work Phone: Start: 12-05-2019 CT of lumbar spine Ilen e S [place] [employer] Work Phone: Start: 06-25-2019 Standard ECG Lana fowler Work Phone: Start: 10-13-2018 X-ray of right foot Kesha Valles Stephanie Work Phone: Plan of Treatment Date Care Activity Detail Author Start: 03-05-2028 Pneumococcal Vaccine : Ped or At-Risk (1 - PCV) Pneumococcal Vaccine: Ped or At-Risk (1 - PCV) [facility] Comment on above: Postponed from 06/01 (Not Indicated) Start: 03-05-2028 Pneumococcal Vaccine : Ped or At-Risk (1 of 2 - PCV) Pneumococcal Vaccine: Ped or At-Risk (1 of 2 - PCV) [facility] Comment on above: Postponed from 06/01 (Not Indicated) Start: 01-24-2025 End: 01-24-2025 Patient encounter procedure 01/24/2025 1:00 PM EDT Office Visit [facility] [address] [place] [phone] Hawk Anaya, DO [address], [place] [address] [facility] Start: 04-07-2024 End: 04-07-2024 Patient encounter procedure 04/07/2024 11:20 AM EST Office [facility] [address] [facility] [place] [place] [phone] Harper Rosales, YAEL [address] [facility] [facility] [address] [place], [place] [address] [facility] Start: 03-02-2024 End: 03-02-2024 Patient encounter procedure [facility] Comment on above: Arrived Start: 02-13-2024 [facility] Start: 02-13-2024 End: 02-13-2024 Patient encounter procedure 02/13/2024 9:00 AM EDT Procedure Visit [facility] Hawk Anaya, DO [address], [facility] Start: 01-26-2024 End: 01-26-2024 Patient encounter procedure 01/26/2024 10:45 AM EDT Office Visit [facility] [address] [place] [address] Alyssa Prakash, DAMARIS [address] [place] [address] [facility] Start: 01-12-2024 End: 01-11-2025 Microbial culture, body fluid [facility] Work Phone: Comment on above: Expected: 01/12/2024 , Expires: 01/11/2025 Start: 12-28-2023 COVID-19 Vaccine ( season) COVID-19 Vaccine () [facility] Start: 12-28-2023 Influenza vaccination [facility] Start: 12-18-2023 End: 12-18-2023 Patient encounter procedure 12/18/2023 8:40 AM EDT Office Visit [facility] [address] [place] [phone] Ariana Garza PA-C [address] [place], [place] [address] [address] [facility] Start: 11-27-2023 End: 11-27-2023 Patient encounter procedure 11/27/2023 11:00 AM EDT Office Visit [facility] [address] [place] [phone] LeticiaTracy wray II, MD [address] [place], [place] [address] [address] [facility] Start: 11-23-2023 Depression Remission Assessment (PHQ9) Depression Remission Assessment (PHQ9) [facility] Start: 11-13-2023 End: 11-13-2023 Patient encounter procedure 11/13/2023 2:15 PM EDT Office Visit [facility] [address] [place] [phone] Tracy Alejandre II, MD [address] [place], [place] [address] [address] [facility] Start: 11-06-2023 End: 11-06-2023 Patient encounter procedure 11/06/2023 9:30 AM EDT Office Visit [facility] [address] [place] [address] [place] [phone] Tracy Alejandre II, MD [address] [place] [address] [facility] Start: 10-17-2023 End: 10-17-2023 Patient encounter procedure 10/17/2023 12:45 PM EDT Appointment [facility] [address] [place] [address] [facility] Start: 08-05-2023 End: 08-05-2023 Patient encounter procedure 08/05/2023 11:00 AM EDT Office Visit [facility] [address] [place] [address] Ariana Garza PA-C [address] [place] [address] [facility] Start: 07-07-2023 End: 07-07-2023 Patient encounter procedure 07/07/2023 8:00 AM EDT Office Visit [facility] General Surgery [address] [place] [address] Ashley Mcdaniel III, MD [address] [place] [address] [facility] Start: 07-01-2023 End: 07-01-2023 Patient encounter procedure [facility] Start: 05-08-2023 Screening for malign ant neoplasm of cervix [facility] Start: 04-25-2023 End: 04-25-2023 Patient encounter procedure 04/25/2023 11:00 AM EST Office Visit [facility] [address] [place] [address] Ariana Garza PA-C [address] [place] [address] [facility] Start: 04-11-2023 End: 04-11-2023 Patient encounter procedure [facility] Mammography Start: 01-08-2023 End: 01-08-2023 Patient encounter procedure 01/08/2023 10:40 AM EDT Office Visit [facility] [address] [place] [address] Ariana Garza PA-C [address] [place] [address] [facility] Start: 12-27-2022 COVID-19 Vaccine () COVID-19 Vaccine ( season) [facility] Start: 12-27-2022 COVID-19 Vaccine () COVID-19 Vaccine () [facility] Start: 12-27-2022 Influenza vaccination Sequenti al Influenza Vaccine (#1) [facility] Start: 12-06-2022 Depression Remission Assessment (PHQ9) Depression Remission Assessment (PHQ9) [facility] Start: 08-20-2022 End: 08-20-2022 Patient encounter procedure 08/20/2022 Office Visit Primary Care Ariana Garza PA-C [address] [place] [address] [facility] Start: 05-28-2022 End: 05-28-2022 Patient encounter procedure 05/28/2022 Office Visit Primary Care Ariana Garza PA-C [address] [place] [address] [facility] Start: 03-05-2022 End: 03-05-2022 Patient encounter procedure 03/05/2022 Office Visit Primary Care Ariana Garza PA-C [address] [place] [address] [facility] Start: 12-27-2021 Influenza vaccination Sequenti al Influenza Vaccine (#1) [facility] Start: 10-01-2021 End: 10-01-2021 Patient encounter procedure 10/01/2021 Appointment Radiology Ashley Mcdaniel III, MD [address] [place] [address] [facility] Start: 10-01-2021 End: 10-01-2021 Patient encounter procedure [facility] Start: 09-11-2021 End: 09-11-2021 Patient encounter procedure 09/11/2021 Appointment Radiology Priya Jorge, FINANCIAL ACCOUNTING MANAGER [address] [place] [address] [facility] Start: 09-11-2021 COVID-19 Vaccine (3 - Booster for Moderna series) COVID-19 Vaccine (3 - Booster for Moderna series) [facility] Start: 08-04-2021 Adolescent depressio n screening assessment Depression Screening (PHQ9) [facility] Start: 08-04-2021 Depression screening using PHQ-9 (Patient Health Questionnaire 9) score Depression Screening (PHQ-2/9) [facility] Start: 08-04-2021 History and physical examination, annual for health maintenance Wellness Visit [facility] Start: 06-08-2021 COVID-19 Vaccine (3 - Booster for Moderna series) COVID-19 Vaccine (3 - Booster for Moderna series) [facility] Start: 06-08-2021 COVID-19 Vaccine (3 - Moderna series) COVID-19 Vaccine (3 - Moderna series) [facility] Start: 04-30-2021 End: 04-30-2021 Patient encounter procedure 04/30/2021 Office Visit Lab Harper Gabriel, FINANCIAL ACCOUNTING MANAGER [address] [address] [facility] Start: 12-27-2020 Influenza vaccination Sequenti al Influenza Vaccine (#1) [facility] Start: 03-15-2020 End: 03-15-2020 Office Visit 03/15/2020 Office Visit Family Medicine Lana Lombardi APRN-FINANCIAL ACCOUNTING MANAGER [address] [place] [address] [facility] Start: 12-28-2019 Influenza vaccination INFLUENZA VACC INE (#1) [facility] Start: 12-28-2019 Influenza vaccinatio n given Sequential Influenza Vaccine (#1) [facility] Start: 12-14-2019 End: 12-14-2019 Office Visit 12/14/2019 Office Visit Family Medicine Lana Lombardi HARD TILE SETTER-FINANCIAL ACCOUNTING MANAGER [address] [place] [address] [facility] Start: 07-12-2019 End: 07-12-2019 Office Visit 07/12/2019 Office Visit Family Medicine Lana Lombardi APRN-FINANCIAL ACCOUNTING MANAGER [address] [place] [address] [facility] Start: 06-25-2019 End: 06-25-2020 Standard ECG ECG ECG Routine Essential hypertension Expected: 06/25/2019, Expires: 06/25/2020 [facility] Comment on above: Expected: 06/25/2019 , Expires: 06/25/2020 Start: 03-08-2019 End: 03-08-2019 Office Visit 03/08/2019 Office Visit Family Medicine Lana Lombardi APRN-FINANCIAL ACCOUNTING MANAGER [address] [place] [address] [facility] Start: 01-25-2019 End: 01-25-2019 Office Visit 01/25/2019 Office Visit Family Medicine Lana Lombardi HARD TILE SETTER-FINANCIAL ACCOUNTING MANAGER [address] [place] [address] [facility] Start: 12-27-2018 Influenza vaccination INFLUENZA VACC INE (#1) [facility] Start: 12-27-2018 Influenza vaccinatio n given SEQUENTIAL INFLUENZA VACCINE (Season Ended) [facility] Start: 11-24-2018 End: 11-25-2019 CBC, EDIF, PLATELET CBC, EDIF, PLATELET Lab Routine Encounter for well woman exam without gynecological exam Expected: 11/24/2018, Expires: 11/25/2019 [facility] Comment on above: Expected: 11/24/2018 , Expires: 11/25/2019 Start: 11-24-2018 End: 11-25-2019 Comprehensive metabolic 2000 panel COMPREHENSIVE METABOLIC PANEL Lab Routine Encounter for well woman exam without gynecological exam Expected: 11/24/2018, Expires: 11/25/2019 [facility] Comment on above: Expected: 11/24/2018 , Expires: 11/25/2019 Start: 11-24-2018 End: 11-25-2019 LIPID PANEL W CALCULATED LDL LIPID PANEL W CALCULATED LDL Lab Routine Encounter for well woman exam without gynecological exam Expected: 11/24/2018, Expires: 11/25/2019 [facility] Comment on above: Expected: 11/24/2018 , Expires: 11/25/2019 Start: 11-24-2018 End: 11-25-2019 TSH W/FT4 REFLEX TSH W/FT4 REFLEX Lab Routine Encounter for well woman exam without gynecological exam Elevated TSH Expected: 11/24/2018, Expires: 11/25/2019 [facility] Comment on above: Expected: 11/24/2018 , Expires: 11/25/2019 Start: 12-27-2017 Influenza vaccination INFLUENZA VACC INE (#1) [facility] Work Phone: Start: 2016 Screening for malign ant neoplasm of cervix HPV/Cotest [facility] Start: 2007 Screening for malign ant neoplasm of cervix [facility] Work Phone: Start: 2005 Third diphtheria, te tanus and acellular pertussis (DTaP) vaccination TDAP (ADULT) [facility] Work Phone: Start: 2004 Hepatitis C antibody , confirmatory test Hepatitis C Screening [facility] Start: 2004 Hepatitis C screening Hepatitis C Sc reening [facility] Start: 2004 Tetanus vaccination TETANUS [facility] Work Phone: Start: 2002 COVID-19 Vaccine (1) COVID-19 Vaccin e (1) [facility] Start: 2001 HIV screening HIV Screening [facility] Start: 1999 HIV screening HIV SCREENING DISCUSSION [facility] Work Phone: Start: 1992 Pneumococcal Vaccine : Ped or At-Risk (1 - PCV) Pneumococcal Vaccine: Ped or At-Risk (1 - PCV) [facility] Start: 1992 Pneumococcal Vaccine : Ped or At-Risk (1 of 2 - PPSV23) Pneumococcal Vaccine: Ped or At-Risk (1 of 2 - PPSV23) [facility] Start: 1991 COVID-19 Vaccine (1) COVID-19 Vaccin e (1) [facility] Start: 1989 History and physical examination, annual for health maintenance Wellness Visit [facility] Start: 1986 Screening for malign ant neoplasm of cervix PAP SMEAR [facility] Start: 1986 Tetanus vaccination [facility] End: 09-05-2023 Complete blood count with white cell differential, manual CBC and Differential Lab Routine Prediabetes 1 Occurrences starting 09/04/2022 until 09/05/2023 [facility] Comment on above: 1 Occurrences starti ng 09/04/2022 until 09/05/2023 End: 08-19-2024 Complete blood count with white cell differential, manual CBC and Differential Lab Routine Prediabetes 1 Occurrences starting 08/19/2023 until 08/19/2024 [facility] Comment on above: 1 Occurrences starti ng 08/19/2023 until 08/19/2024 End: 09-05-2023 Comprehensive metabolic 2000 panel - Serum or Plasma Comprehensive Metabolic Panel Lab Routine Prediabetes 1 Occurrences starting 09/04/2022 until 09/05/2023 [facility] Comment on above: 1 Occurrences starti ng 09/04/2022 until 09/05/2023 End: 01-24-2024 Comprehensive metabolic 2000 panel - Serum or Plasma Comprehensive Metabolic Panel Lab Routine Prediabetes 1 Occurrences starting 01/23/2023 until 01/24/2024 [facility] Comment on above: 1 Occurrences starti ng 01/23/2023 until 01/24/2024 End: 08-19-2024 Comprehensive metabolic 2000 panel - Serum or Plasma Comprehensive Metabolic Panel Lab Routine Prediabetes 1 Occurrences starting 08/19/2023 until 08/19/2024 [facility] Comment on above: 1 Occurrences starti ng 08/19/2023 until 08/19/2024 End: 09-05-2023 Hemoglobin A1c/Hemoglobin.total in Blood Hemoglobin A1c Lab Routine Prediabetes 1 Occurrences starting 09/04/2022 until 09/05/2023 [facility] Work Phone: Comment on above: 1 Occurrences starti ng 09/04/2022 until 09/05/2023 End: 01-24-2024 Hemoglobin A1c/Hemoglobin.total in Blood Hemoglobin A1c Lab Routine Prediabetes 1 Occurrences starting 01/23/2023 until 01/24/2024 [facility] Work Phone: Comment on above: 1 Occurrences starti ng 01/23/2023 until 01/24/2024 End: 08-19-2024 Hemoglobin A1c/Hemoglobin.total in Blood Hemoglobin A1c Lab Routine Prediabetes 1 Occurrences starting 08/19/2023 until 08/19/2024 [facility] Work Phone: Comment on above: 1 Occurrences starti ng 08/19/2023 until 08/19/2024 INR Coag RelTime (Bld) XR Foot R ight 3+ Views (Standard) Imaging STAT Foot pain, right 10/13/2018 11:25 AM EDT [facility] End: 09-05-2023 Lipid 1996 panel - Serum or Plasma Lipid Panel Lab Routine Prediabetes 1 Occurrences starting 09/04/2022 until 09/05/2023 [facility] Comment on above: 1 Occurrences starti ng 09/04/2022 until 09/05/2023 End: 08-19-2024 Lipid 1996 panel - Serum or Plasma Lipid Panel Lab Routine Prediabetes 1 Occurrences starting 08/19/2023 until 08/19/2024 [facility] Comment on above: 1 Occurrences starti ng 08/19/2023 until 08/19/2024 End: 06-02-2024 MG Breast - bilateral Diagnostic Mammography Diagnostic Emile Bilateral Imaging Routine Discharge from right nipple 1 Occurrences starting 04/01/2023 until 06/02/2024 [facility] Comment on above: 1 Occurrences starti ng 04/01/2023 until 06/02/2024 End: 11-10-2022 MG Breast - bilateral Screening Mammography Screening Emile Bilateral Imaging Routine Encounter for screening for malignant neoplasm of breast, unspecified screening modality 1 Occurrences starting 09/10/2021 until 11/10/2022 [facility] Work Phone: Comment on above: 1 Occurrences starti ng 09/10/2021 until 11/10/2022 End: 05-14-2024 MR Breast - bilateral WO and W contrast IV MR Breast Bilateral With And Without Contrast Imaging Routine Nipple discharge Family history of breast cancer in first degree relative 1 Occurrences starting 05/14/2023 until 05/14/2024 [facility] Work Phone: Comment on above: 1 Occurrences starti ng 05/14/2023 until 05/14/2024 End: 06-18-2024 MR Guidance for biopsy of Breast - right MR Breast Core Biopsy Right Imaging Routine 1 Occurrences starting 06/18/2023 until 06/18/2024 [facility] Comment on above: 1 Occurrences starti ng 06/18/2023 until 06/18/2024 End: 04-01-2024 Prolactin [Mass/volume] in Serum or Plasma Prolactin Lab Routine Discharge from right nipple 1 Occurrences starting 04/01/2023 until 04/01/2024 [facility] Comment on above: 1 Occurrences starti ng 04/01/2023 until 04/01/2024 Prolactin [Mass/volu me] in Serum or Plasma Prolactin Lab Routine Discharge from right nipple 04/01/2023 10:25 AM EST [facility] End: 04-29-2022 SARS-CoV-2 (COVID-19) RNA [Presence] in Respiratory specimen by ALFREDO with probe detection COVID-19/Influenza A,B Molecular Microbiology Routine Encntr for obs for susp expsr to ot biolg agents ruled out 1 Occurrences starting 04/29/2021 until 04/29/2022 [facility] Work Phone: Comment on above: 1 Occurrences starti ng 04/29/2021 until 04/29/2022 End: 09-05-2023 Thyrotropin [Units/volume] in Serum or Plasma TSH Lab Routine Prediabetes 1 Occurrences starting 09/04/2022 until 09/05/2023 [facility] Comment on above: 1 Occurrences starti ng 09/04/2022 until 09/05/2023 End: 09-05-2023 Thyroxine (T4) free [Mass/volume] in Serum or Plasma T4, Free Lab Routine Prediabetes 1 Occurrences starting 09/04/2022 until 09/05/2023 [facility] Comment on above: 1 Occurrences starti ng 09/04/2022 until 09/05/2023 End: 09-21-2022 Ultrasonography guided biopsy of right breast US Breast Biopsy Right Imaging Routine Mass Of Right Breast, Unspecified Quadrant 1 Occurrences starting 09/21/2021 until 09/21/2022 [facility] Work Phone: Comment on above: 1 Occurrences starti ng 09/21/2021 until 09/21/2022 End: 04-01-2024 US Breast - right US Breast Right Complete Imaging Routine Discharge from right nipple 1 Occurrences starting 04/01/2023 until 04/01/2024 [facility] Work Phone: Comment on above: 1 Occurrences starti ng 04/01/2023 until 04/01/2024 End: 06-18-2024 US Breast - right US Breast Right Complete Imaging Routine 1 Occurrences starting 06/18/2023 until 06/18/2024 [facility] Work Phone: Comment on above: 1 Occurrences starti ng 06/18/2023 until 06/18/2024 End: 09-29-2024 US Breast - right US Breast Right Complete Imaging Routine Mastitis 1 Occurrences starting 09/30/2023 until 09/29/2024 [facility] Work Phone: Comment on above: 1 Occurrences starti ng 09/30/2023 until 09/29/2024 End: 06-18-2024 US Guidance for biopsy of Breast - right US Breast Biopsy Right Imaging Routine 1 Occurrences starting 06/18/2023 until 06/18/2024 [facility] Comment on above: 1 Occurrences starti ng 06/18/2023 until 06/18/2024 Immunizations Immunization Date Immunization Notes Care Provider Fa [facility] 03-05-2022 Seasonal, quadrivale nt, recombinant, injectable influenza vaccine, preservative free Ariana Garza PA-C Work Phone: [facility] 03-05-2022 flu vac qv 2021,18yr up,rcm-PF (FLUBLOK QUAD) syringe Ariana Garza PA-C Work Phone: [facility] 03-05-2022 influenza virus vaccine, unspecified formulation Ariana Garza PA-C Work Phone: [facility] 03-17-2019 influenza virus vaccine, unspecified formulation [facility] Payers Date Payer Category Payer Self-pay 2022 [facility] BCBS [id number] 2022 Unknown [id number] 2020 Unknown [facility] PLAN [employer]AN - PREFERRED [id number] 2020-Present [id number] [id number] 2020 Unknown [id number] 2020 Unknown [id number]. [id number] 2018 Private Health Insurance xxx [id number] [id number] 2018 Private Health Insurance [id number] 1986 Unknown [id number] 2.16.840.1.191348.3.579. 2.903 1986 Unknown [id number] 2.16.840.1.438778.3.579. 2.903 1986 Unknown [id number] 2.16.840.1.157397.3.579. 2.903 1986 Unknown [id number] 2.16.840.1.056471.3.579. 2.900 1986 Unknown [id number] 2.16.840.1.116372.3.579. 2.900 1986 Unknown [id number] 2.16.840.1.871423.3.579. 2. 1986 Unknown [id number] 2.16.840.1.172536.3.579. 2 1986 Unknown [id number] 2.16.840.1.084452.3.579. 2 1986 Unknown [id number] 2.16.840.1.516321.3.579. 2 1986 Unknown [id number] 2.16.840.1.162796.3.579. 2 1986 Unknown [id number] 2.16.840.1.922853.3.579. 2 1986 Unknown [id number] 2.16.840.1.760778.3.579. 2 1986 Unknown [id number] 2.16.840.1.857726.3.579. 2 1986 Unknown [id number] 2.16.840.1.058592.3.579. 2 1986 Unknown [id number] 2.16.840.1.893704.3.579. 2 1986 Unknown [id number] 2.16.840.1.086489.3.579. 2 1986 Unknown [id number] 2.16.840.1.273004.3.579. 2 1986 Unknown [id number] 2.16.840.1.651608.3.579. 2 1986 Unknown [id number] 2.16.840.1.052781.3.579. 2.903 1986 Unknown [id number] 2.16.840.1.684763.3.579. 2.903 1986 Unknown [id number] 2.16.840.1.709338.3.579. 2.903 1986 Unknown [id number] 2.16.840.1.940097.3.579. 2.903 1986 Unknown [id number] 2.16.840.1.009264.3.579. 2.903 1986 Unknown [id number] 2.16.840.1.104521.3.579. 2.3 1986 Unknown [id number] 2.16.840.1.556671.3.579. 2.1259 1986 Unknown [id number] 2.16.840.1.589080.3.579. 2.9 1986 Unknown [id number] 2.16.840.1.987337.3.579. 2.1259 1986 Unknown [id number] 2.16.840.1.100131.3.579. 2.1259 Unknown [id number] 2.16.840.1.871203.3.579. 2.462 Unknown [employer] BC/BS [id number] Unknown [id number] 2.16.840.1.733554.3.579. 2.531 Social History Date Type Detail Facility Start: 03-18-2018 End: 01-12-2024 Tobacco smoking status NHIS Current every day smoker [facility] Work Phone: Start: 03-18-2018 End: 04-01-2023 Cigarettes smoked current (pack per day) - Reported [facility] Start: 1985 Sex Assigned At Not on file [facility] Work Phone: History of tobacco use Cigarette Smoker [facility] Start: 10-13-2018 End: 02-05-2022 History SDOH Alcohol Frequency 1 [facility] Start: 01-31-2019 End: 04-01-2023 Alcohol intake No [facility] Start: 03-17-2019 End: 06-10-2019 Alcohol intake Current non-drinker of alcohol (finding) [facility] Start: 06-25-2019 End: 12-14-2019 Tobacco use and exposure Never used [facility] Start: 08-31-2021 End: 09-04-2022 Exposure to SARS-CoV-2 (event) Not sure [facility] Start: 12-14-2019 Tobacco Comment 10-15 cigarettes a day. [facility] Start: 08-04-2020 End: 01-12-2024 Tobacco use and exposure [facility] End: 03-12-2020 History of tobacco use User of smokeless tobacco [facility] Start: 08-04-2020 End: 10-01-2021 Alcohol intake Lifetime non-drinker (finding) [facility] Start: 08-04-2020 End: 02-05-2022 History SDOH Social Connections Phone 5 [facility] Start: 08-04-2020 History SDOH Social Connections Get Together 4 [facility] Start: 08-04-2020 End: 02-05-2022 History SDOH Social Connections Membership 2 [facility] Start: 08-04-2020 History SDOH Social Connections Living 3 [facility] Start: 08-04-2020 History SDOH Physical Activity DPW 0 [facility] Start: 09-10-2021 End: 09-10-2022 Tobacco smoking status NHIS Ex-smoker [facility] Start: 02-23-2022 End: 01-12-2024 Alcohol intake Ex-drinker (finding) [facility] Start: 02-05-2022 Alcohol Comment rare [facility] Within the last year , have you been afraid of your partner or ex-partner? No [facility] Are you now , , , , never or living with a partner? [facility] How often to you hav e a drink containing alcohol? Never [facility] Average Number of Drinks Not on file [facility] Do you feel stress - tense, restless, nervous, or anxious, or unable to sleep at night because your mind is troubled all the time - these days [OSQ] Not at all [facility] (I/We) worried wheth er (my/our) food would run out before (I/we) got money to buy more. Never true [facility] Start: 05-08-2020 Gender identity Identifies as female gender (finding) [facility] Start: 05-08-2020 Sexual orientation Heterosexual (finding) [facility] History of tobacco use Current smoker [facility] How hard is it for y ou to pay for the very basics like food, housing, medical care, and heating Not very hard [facility] consumption unknown [facility] Start: 1985 Sex Assigned At Female [facility] Clinical Notes 04-29-2021 to 03-02-2024 Jennifer Siu - 03/02/2024 10:20 AM ESTPatient InstructionsAlyssa Prakash, DAMARIS - 01/12/2024 10:04 AM EDTKTracy monaco II, MD - 11/27/2023 10:56 AM EDTPatient Instructions Note Date & Type Note Facility 03-02-2024 History of Presen t illness Narrative Reason for Appointment: Patient ID: Lele Leon is a 38 y.o. female who presents for No chief complaint on file. Patient presents today for Pre Op/Post Op appointment. Patient is scheduled to undergo Da Debo assisted Laparoscopic Hysterectomy, possible exploratory laparotomy, possible BSO, possible cystoscopy on 03/31/[address] Anaya at [facility]. MEDICATIONS Current Outpatient Medications Medication Instructions sulfamethoxazole-trimethoprim (Bactrim DS) 800-160 MG per tablet 1 tablet, Oral, 2 times daily ALLERGIES Allergies Allergen Reactions Bee Venom Anaphylaxis Ibuprofen Nausea And Vomiting Other Reaction(s): GI Intolerance Severe vomiting PROBLEMS Active Ambulatory Problems Diagnosis Date Noted Discharge from right nipple 12/15/2023 Resolved Ambulatory Problems Diagnosis Date Noted No Resolved Ambulatory Problems Past Medical History: Diagnosis Date Abnormal blood sugar Long Q-T syndrome Menorrhagia HISTORY PAST MEDICAL HISTORY SOCIAL HISTORY Past Medical History: Diagnosis Date Abnormal blood sugar Long Q-T syndrome Menorrhagia Social History Tobacco Use Smoking status: Not on file Smokeless tobacco: Not on file Substance Use Topics Alcohol use: Not on file Drug use: Not on file FAMILY HISTORY No family history on file. SURGICAL HISTORY Past Surgical History: Procedure Laterality Date BREAST BIOPSY x2 2023-top, 2022-bottom CYST REMOVAL hand DILATION AND CURETTAGE OF UTERUS 2010 REVIEW OF SYSTEMS Review of Systems: Review of Systems Constitutional: Negative. HENT: Negative. Eyes: Negative. Respiratory: Negative. Cardiovascular: Negative. Gastrointestinal: Negative. Genitourinary: Positive for dyspareunia, menstrual problem and pelvic pain. Musculoskeletal: Negative. Skin: Negative. Neurological: Negative. All other systems reviewed and are negative. Hematological: Negative. Endocrine: Negative. Allergic/Immunologic: Negative. OBJECTIVE Objective: Physical Exam Constitutional: Appearance: Normal appearance. She is well-developed. Cardiovascular: Rate and Rhythm: Normal rate and regular rhythm. Pulmonary: Effort: Pulmonary effort is normal. Breath sounds: Normal breath sounds. Abdominal: General: Bowel sounds are normal. There is no distension. Palpations: Abdomen is soft. Tenderness: There is no abdominal tenderness. There is no guarding or rebound. Musculoskeletal: General: No swelling. Normal range of motion. Right lower leg: No edema. Left lower leg: No edema. Neurological: Mental Status: She is alert and oriented to person, place, and time. Skin: General: Skin is warm and dry. Psychiatric: Mood and Affect: Mood normal. Behavior: Behavior normal. Vitals and nursing note reviewed. Exam conducted with a lunchroom operator present. Vitals: Estimated body mass index is 53.92 kg/m as calculated from the following: Height as of 12/30/23: 5' 2 . Weight as of 01/20/24: 294 lb 12.8 oz. BP: No LMP recorded. ASSESSMENT & PLAN ICD-10-CM 1. Pre-op examination Z01.818 2. Menorrhagia with regular cycle N92.0 3. Pelvic pain in female R10.2 4. Dysmenorrhea N94.6 5. Dyspareunia in female N94.10 Post Op Follow Up: Patient presents today for a postop follow up after having a D&C Hysteroscopy performed at [facility] with Dr. Anaya on 02/13/2024. Pathology results was reviewed with the patient in great detail and all restrictions have been lifted. Pre Op: Patient is doing well but has complaints of pelvic pian. I have discussed conservative management vs. surgical management with the patient in detail and patient desires surgical management at this time. Patient will undergo Da Edbo assisted Laparoscopic Hysterectomy, possible exploratory laparotomy, possible BSO, possible cystoscopy on 03/31/2024. Surgical consents were signed, mmc was reviewed, and patient is to proceed to [facility] OR. Follow Up: Patient is to follow up at 1 & 6 weeks post operative to assess proper healing and recovery from procedure. Documented by Korina Randall LPN on behalf of: Hawk Anaya DO documented in this encounter [facility] 01-26-2024 Note TODAY'S DATE: 024 PATIENT: Lele [...] other drug use. 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 Ultrasound showed an isolated, [...] to clindamycin. She was seen by her loan expeditor who cultured the nipple discharge on 12/22/2023 with results showing: Anaerobic: Bacteroides vulgatus, and Prevotella sp. Aerobic culture: staphylococcus epidermidis which was resistant to penicillins, clindamycin. This was suspectible to Bactrim and she was prescribed Bactrim x 7 days and Flagyl x 7 days. She recently finished these antibiotics. She was seen by Dr. Sasha Alcala ([facility]) who referred her to our [...] 02/12 followed by a possible hysterectomy 03/30. 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 [facility] 01-12-2024 Instructions Alyssa Prakash CNP - 01/12/2024 12:52 PM EDT [place] [employer] [place]uit [place] [email or web address] documented in this encounter [facility] 01-12-2024 Note TODAY'S DATE: 024 PATIENT: [...] other drug use. 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 Ultrasound showed an isolated, [...] to clindamycin. She was seen by her loan expeditor who cultured the nipple discharge on 12/22/2023 with results showing: Anaerobic: Bacteroides vulgatus, and Prevotella sp. Aerobic culture: staphylococcus epidermidis which was resistant to penicillins, clindamycin. This was suspectible to Bactrim and she was prescribed Bactrim x 7 days and Flagyl x 7 days. She recently finished these antibiotics. She was seen by Dr. Sasha Alcala ([facility]) who referred her to our [...] 02/12 followed by a possible hysterectomy 03/30. 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 [facility] 01-12-2024 History of Presen t illness Narrative [...] other drug use. 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 Ultrasound showed an isolated, [...] to clindamycin. She was seen by her loan expeditor who cultured the nipple discharge on 12/22/2023 with results showing: Anaerobic: Bacteroides vulgatus, and Prevotella sp. Aerobic culture: staphylococcus epidermidis which was resistant to penicillins, clindamycin. This was suspectible to Bactrim and she was prescribed Bactrim x 7 days and Flagyl x 7 days. She recently finished these antibiotics. She was seen by Dr. Sasha Alcala ([facility]) who referred her to our [...] 02/12 followed by a possible hysterectomy 03/30. 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 Previous Medications BLOOD-GLUCOSE SENSOR (WallitYLE ANDREW 3 SENSOR) MALIA For continuous glucose [...] conjunction with the immunization order to satisfy [place] Board [employer] Pharmacy Positive ID requirements for [...] ACTUAL WEIGHT LMP 12/23/2023 BMI 53.48 kg/m Relay Man: No Physical Exam Vitals reviewed. Constitutional: General: [...] She recently had culture completed through her loan expeditor office of her purulent nipple discharge which [...] smoking cessation. I provided her with the [place] tobacco quit line information on her AVS. [...] minutes on this encounter today which includes [id number] time with the patient, time reviewing the chart, and time spent documenting the encounter. documented in this encounter [facility] 11-27-2023 Note Lele Leon present s for a persistent cyst in the right breast, treated with antibiotics. Since her last visit 3 weeks ago, the cyst has continued to decrease, from the size of a daily to a pea and is not tender. She completed antibiotic a week ago Plan - doing much better. Excision mcfp is still a consideration. Follow up as needed. AUTHENTICATED BY TRACY ALEJANDRE II, ON 11/27/2023 12:56:45 [facility] 11-27-2023 History of Presen t illness Narrative Lele Leon presents for a persistent cyst in the right breast, treated with antibiotics. Since her last visit 3 weeks ago, the cyst has continued to decrease, from the size of a daily to a pea and is not tender. She completed antibiotic a week ago Plan - doing much better. Excision terminologist is still a consideration. Follow up as needed. documented in this encounter [facility] 11-06-2023 Note Lele Leon present s for a persistent cyst in the right breast, treated with antibiotics. Since her last visit 2 weeks ago and taking clindamycin, the cyst has continued to decrease, from the size of a plum to a daily, and is also less tender. Plan is to taper clindamycin for 2 more weeks and recheck in 3 weeks. Excision terminologist is still a consideration. AUTHENTICATED BY TRACY ALEJANDRE II, ON 11/06/2023 12:39:37 [facility] 11-06-2023 History of Presen t illness [...] weeks and recheck in 3 weeks. Excision mcfp is still a consideration. documented in this encounter [facility] 10-22-2023 Note Lele Leon present s [...] BY TRACY ALEJANDRE II, ON 10/22/2023 15:39:42 [facility] 10-22-2023 History of Presen t illness [...] weeks, then reevaluate. documented in this encounter [facility] 10-16-2023 Note Lele Leon female 38 [...] AUTHENTICATED BY NICOLE DEAN, ON 10/17/2023 09:28:01 [facility] 10-16-2023 History of Presen t illness [...] Nicole Dean PA-C documented in this encounter [facility] 10-16-2023 History of Presen t illness [...] Nicole Dean PA-C documented in this encounter [facility] 09-30-2023 Note Lele Leon female 38 [...] BY TRACY ALEJANDRE II, ON 10/01/2023 12:29:19 [facility] 08-25-2023 Note .Subjective Patient ID: Lele [...] If this im (more content not included)... [facility] 08-25-2023 History of Presen t illness [...] . Note: This dictation was generated using [employer] voice recognition software. Please excuse any grammatical or spelling errors that may have occurred using the system. documented in this encounter [facility] 07-03-2023 History of Presen t illness Narrative Patient informed of negative right breast biopsy results. Patient also informed of the need for a repeat 6 month right breast mammogram and US. Recall placed in computer. documented in this encounter [facility] 07-03-2023 History of Presen t illness Narrative Called patient today for post biopsy call/check in. No answer, left VM for patient to return my call with any questions/concerns. Per chart, patient has viewed results in [employer] which reveal mastitis. Ordering provider to call patient with results. Benign path entered into breast care summary. Navigation will sign off at this time. Cheri MATTHEWS, RN General Oncology Nurse Navigator Breast Health Nurse Navigator [facility] [phone] documented in this encounter [facility] 07-01-2023 History of Presen t illness [...] in good condition. documented in this encounter [facility] 05-14-2023 History of Presen t illness [...] to genetic counseling. documented in this encounter [facility] 04-01-2023 Note Addended by: ARIANA GARZA on: 04/01/2023 10:45 AM Modules accepted: Orders [facility] 04-01-2023 Note Addended by: ARIANA GARZA on: 04/01/2023 10:45 AM Modules accepted: Orders [facility] 04-01-2023 Miscellaneous Notes Addended by: ARIANA GARZA on: 04/01/2023 10:45 AM Modules accepted: Orders documented in this encounter [facility] 04-01-2023 History of Presen t illness [...] Future Note: This dictation was generated using [employer] voice recognition software. Please excuse any grammatical or spelling errors that may have occurred using the system. documented in this encounter [facility] 01-28-2023 History of Presen t illness [...] . Note: This dictation was generated using [employer] voice recognition software. Please excuse any grammatical or spelling errors that may have occurred using the system. documented in this encounter [facility] 09-09-2022 History of Presen t illness [...] . Note: This dictation was generated using [employer] voice recognition software. Please excuse any grammatical or spelling errors that may have occurred using the system. documented in this encounter [facility] 05-28-2022 History of Presen t illness [...] . Note: This dictation was generated using [employer] voice recognition software. Please excuse any grammatical or spelling errors that may have occurred using the system. 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 Please excuse any grammatical or spelling errors that may have occurred using the system. documented in this encounter [facility] 02-05-2022 History of Presen t illness [...] . Note: This dictation was generated using [employer] voice recognition software. Please excuse any grammatical [...] people? Somewhat difficult documented in this encounter [facility] 10-02-2021 History of Presen t illness Narrative Patient informed of negative right breast biopsy results. Patient also informed of the need for a repeat mammogram and ultrasound in 6 months. Recall placed in computer. documented in this encounter [facility] 10-01-2021 History of Presen t illness [...] in good condition. documented in this encounter [facility] 10-01-2021 Instructions Elisha Fuentes RN - [...] at any time. documented in this encounter [facility] 10-01-2021 History of Presen t illness [...] by Kaitlin Tay. documented in this encounter [facility] 09-21-2021 History of Presen t illness Narrative Dr. Lim met with patient to discuss imaging results and recommendations. He is recommending surgical consult and Right ultrasound breast biopsy Explained Breast Health Nurse role in assisting patient scheduling, education, and support. Referral to Dr. Mcdaniel. Appointment scheduled with Dr. Mcdaniel on 10/01/21 at [facility]. Biopsy appointment scheduled on 10/01/21 at [facility]. Patient Accepted first available appointment offered for consultation and/or biopsy. Anticoagulants = None Allergies = ibuprofen, bee venom. After Visit Summary reviewed with patient to include appointment information, biopsy education and office contact information. All questions answered. documented in this encounter [facility] 09-21-2021 Instructions Elisha Fuentes RN - [...] must lie still during the procedure. The hosiery knitter places warm gel on your breast and [...] at any time. 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 Self pay??-refer to [facility] if applicable- [phone] Order Specific Question: Reason for Exam: Answer: family history of breast cancer (mother) Order Specific Question: Is the patient ? Answer: No Order Specific Question: Release to patient Answer: Immediate No results found for this or any previous visit (from the past 336 hour(s)). Note: This dictation was generated using [employer] voice recognition software. Please excuse any grammatical [...] is causing irritation. documented in this encounter [facility] 04-29-2021 History of Presen t illness Narrative Patient called [facility] with concern for COVID-19 and need for testing. [place]/ Department[facility] Fever: no S/S : cough, sore throat, headache Known positive covid exposure?: no Per IDSA guidelines, testing is indicated. Suspect COVID, order placed. Patient aware this phone consult is for testing only. They will follow up with PCP/UC/ED for symptom management, if needed. documented in this encounter [facility] Evaluation note Diagnosis Encntr for obs for susp expsr to oth biolg agents ruled out- Primary [facility] Diagnosis Suppurative hidradenitis- Primary Hidradenitis Family history of breast cancer Family history of malignant neoplasm of breast Encounter for screening for malignant neoplasm of breast, unspecified screening modality [facility] Diagnosis Mass of right breast, unspecified quadrant- Primary [facility] Diagnosis Abnormal mammogram of right breast- Primary [facility] Diagnosis Current moderate episode of major depressive disorder without prior episode (HCC)- Primary [facility] Diagnosis Current moderate episode of major depressive disorder without prior episode (HCC)- Primary Needs flu shot Need for prophylactic vaccination and inoculation against influenza [facility] Diagnosis Current moderate episode of major depressive disorder without prior episode (HCC)- Primary Overactive bladder Hypertonicity of bladder [facility] Diagnosis Prediabetes- Primary Other abnormal glucose Current moderate episode of major depressive disorder without prior episode (HCC) [facility] Diagnosis Current moderate episode of major depressive disorder without prior episode (HCC)- Primary Prediabetes Other abnormal glucose Multiple joint complaints [facility] Diagnosis Discharge from right nipple- Primary [facility] Diagnosis Family history of breast cancer- Primary Family history of malignant neoplasm of breast [facility] Diagnosis Nipple discharge- Primary Other sign and symptom in breast Family history of breast cancer in first degree relative Family history of malignant neoplasm of breast [facility] Diagnosis 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 [facility] Diagnosis Current moderate episode of major depressive disorder without prior episode (HCC)- Primary Prediabetes Other abnormal glucose Mastitis Inflammatory disease of breast [facility] Diagnosis Mastitis- Primary Inflammatory disease of breast [facility] Diagnosis Cellulitis of right breast- Primary Mastitis Inflammatory disease of breast [facility] Diagnosis Cellulitis of right breast- Primary History of lump of right breast Abscess of breast Inflammatory disease of breast [facility] Diagnosis Abscess of breast- Primary Inflammatory disease of breast Cellulitis of right breast [facility] Diagnosis Abscess of breast- Primary Inflammatory disease of breast Cellulitis of right breast [facility] Diagnosis Abscess of right breast- Primary Family history of breast cancer Family history of malignant neoplasm of breast documented in this encounter [facility] note* Diagnosis Abscess of right breast- Primary Family history of breast cancer Family history of malignant neoplasm of breast [facility] noteNo assessment information availableWvumedicine [facility] Work Phone: Evaluation note* Diagnosis Pre-op examination Menorrhagia with regular cycle Pelvic pain in female Unspecified symptom associated with female genital organs Dysmenorrhea Dyspareunia in female [facility] Healthcare[facility]ructions* Attachments The following attachments cannot be sent through Care Everywhere. * Hidradenitis Suppurativa (Telugu) [facility]* Attachments The following attachments cannot be sent through Care Everywhere. * Cervical: Exercises (Telugu) [facility] * Tejinder Case MD - 03/18/2018 Continue to soak in warm water and dish soap, call Dr. Case symptoms worsens over the weekend, clindamycin 4 times daily as directed The following attachments cannot be sent through Care Everywhere. * Paronychia of the Finger or Toe (Telugu) in this encounter* Instructions* Surekha Quintanilla MD [...] Diagnoses Foot pain, right Conn, Yasmin Reena, FINANCIAL ACCOUNTING MANAGER [address] [place] [id number] Kalin Logan, DPM [address] [place] [id number] Status Reason Specialty Diagnoses / Procedures Re ferred By Contact Referred To Contact New Request Diagnoses Essential hypertension Procedures ECG Harjit, Lana, HARD TILE SETTER-FINANCIAL ACCOUNTING MANAGER [address] [place] [id number] Status Reason Specialty Diagnoses / Procedures Referred By Contact Referred To Contact New Request HEAVY DUTY DIESEL MECHANIC Diagnoses Menorrhagia with regular cycle Harjit, Lana, HARD TILE SETTER-FINANCIAL ACCOUNTING MANAGER [address] [place] [address] Susie Sheldon, [address] [address] Status Reason Specialty Diagnoses / Procedures Referred By Contact Referred To Contact New Request Procedures ECG Harjit, Lana, HARD TILE SETTER-FINANCIAL ACCOUNTING MANAGER [address] [place] [id number] Status Reason Specialty Diagnoses / Procedures Referred By Contact Referred To Contact Schedule Outgoing - Transfer of Care Psychiatry Diagnoses Post-traumatic stress Harjit, Lana, HARD TILE SETTER-FINANCIAL ACCOUNTING MANAGER [address] [place] [id number] Specialty Diagnoses / Procedures Referred By Kofi beltran Referred To Contact Radiology Diagnoses Encounter for screening for malignant neoplasm of breast, unspecified screening modality Procedures Mammography Screening Emile Priya Taylor, FINANCIAL ACCOUNTING MANAGER [address] [place] [address] Referral ID Status Reason Start Date Expiration Date V isits Requested Visits Authorized [id number] Authorized 09/10/2021 09/10/2022 1 1 Specialty Diagnoses / Procedures Referred By Contac t Referred To Contact Radiology Diagnoses Mass of right breast, unspecified quadrant Procedures US Breast Biopsy Right Ashley Mcdaniel III, MD [address] [place] [address] Referral ID Status Reason Start Date Expiration Date V isits Requested Visits Authorized [id number] New Request 09/21/2021 09/21/2022 1 1 Specialty Diagnoses / Procedures Referred By Contac t Referred To Contact Radiology Diagnoses Discharge from right nipple Procedures Mammography Diagnostic Emile Bilateral Ariana Garza PA-C [address] [place] [address] Referral ID Status Reason Start Date Expiration Date V isits Requested Visits Authorized [id number] Authorized 04/01/2023 03/31/2024 1 1 Specialty Diagnoses / Procedures Referred By Contac t Referred To Contact Radiology Diagnoses Discharge from right nipple Procedures US Breast Right Complete Ariana Garza PA-C [address] [place] [address] Referral ID Status Reason Start Date Expiration Date V isits Requested Visits Authorized [id number] New Request 04/01/2023 03/31/2024 1 1 Specialty Diagnoses / Procedures Referred By Contac t Referred To Contact Genetics Diagnoses Family history of breast cancer Ashley Mcdaniel III, MD [address] [place] [address] [facility] [place] Referral ID Status Reason Start Date Expiration Date V isits Requested Visits Authorized [id number] Authorized 05/14/2023 05/13/2024 1 1 Specialty Diagnoses / Procedures Referred By Contac t Referred To Contact Radiology Diagnoses Nipple discharge Family history of breast cancer in first degree relative Procedures MR Breast Bilateral With And Without Contrast Ashley Mcdaniel III, MD [address] [place] [address] Referral ID Status Reason Start Date Expiration Date V isits Requested Visits Authorized [id number] New Request 05/14/2023 05/13/2024 1 1 Specialty Diagnoses / Procedures Referred By Contac t Referred To Contact Radiology Procedures MR Breast Core Biopsy Right Ashley Mcdaniel III, MD [address] [place] [address] Referral ID Status Reason Start Date Expiration Date V isits Requested Visits Authorized [id number] Pending Review 06/18/2023 06/17/2024 1 1 Specialty Diagnoses / Procedures Referred By Contac t Referred To Contact Radiology Procedures US Breast Biopsy Right Ashley Mcdaniel III, MD [address] [place] [address] Referral ID Status Reason Start Date Expiration Date V isits Requested Visits Authorized [id number] Pending Review 06/18/2023 06/17/2024 1 1 Specialty Diagnoses / Procedures Referred By Contac t Referred To Contact Radiology Procedures US Breast Right Complete Ashley Mcdaniel III, MD [address] [place] [address] Referral ID Status Reason Start Date Expiration Date V isits Requested Visits Authorized [id number] New Request 06/18/2023 06/17/2024 1 1 Specialty Diagnoses / Procedures Referred By Contac t Referred To Contact Diagnoses Prediabetes Kayla, Ariana Leon PA-C [address] [place] [id number] Referral ID Status Reason Start Date Expiration Date Visits Re quested Visits Authorized [id number] Closed 1 1 Specialty Diagnoses / Procedures Referred By Contac t Referred To Contact Radiology Diagnoses Mastitis Procedures US Breast Right Complete Tracy Alejandre II, MD [address] [place] [address] Referral ID Status Reason Start Date Expiration Date V isits Requested Visits Authorized [id number] New Request 09/30/2023 09/29/2024 1 1 Specialty Diagnoses / Procedures Referred By Kofi beltran Referred To Contact Genetics Diagnoses Family history of breast cancer Alyssa Prakash, DAMARIS [address] [place] [address] [facility] [place] Referral ID Status Reason Start Date Expiration Date V isits Requested Visits Authorized [id number] Authorized 01/12/2024 01/11/2025 1 1 Instructions * Patient Instructions* Yasmin Brown, DAMARIS - 10/13/2018 11:35 AM EDT Foot [...] your doctor if you can take an edfy-jjn-aoczjho medicine. Rest and protect your foot. Take [...] Log into your personal health record on [email or web address] and enter D999 in the Education box to learn more about Foot Pain: Care Instructions. Current as of: January 15, 2018 Content Version: 12.0 [phone] [employer]Pulse. Care instructions adapted under license by your healthcare professional. If you have questions about a medical condition or this instruction, always ask your healthcare professional. [employer] disclaims any warranty or liability for your [...] and stretching exercises. Follow-up care is a esrrano part of your treatment and safety. Be [...] cushion your heel. You can buy these [employer] shoe [employer]. Use them in both shoes, even if [...] Log into your personal health record on [email or web address] and enter S299 in the Education box to learn more about Heel Pain: Care Instructions. Current as of: January 18, 2018 Content Version: 12.0 6460-3505 daPulse. Care instructions adapted under license by your healthcare professional. If you have questions about a medical condition or this instruction, always ask your healthcare professional. [employer] disclaims any warranty or liability for your use of this information. Follow up with the lawn mower repairer. Ice, elevate and Tylenol. documented in this [...] may report side effects to FDA at 9-108-XWQ-6794. What other drugs will affect losartan? Tell your doctor about all your other medicines, especially: a diuretic or water pill ; other blood pressure medications; lithium; or NSAIDs (nonsteroidal anti-inflammatory drugs) --aspirin, ibuprofen (Advil, Motrin), naproxen (Aleve), celecoxib, diclofenac, indomethacin, meloxicam, and others. This list is not complete. Other drugs may affect losartan, including prescription and fgug-ene-mkzzvks medicines, vitamins, and herbal products. Not all [...] to ensure that the information provided by [employer]. ('Multum') is accurate, up-to-date, and complete, but no guarantee is made to that effect. Drug information contained herein may be time sensitive. [employer] information has been compiled for use by healthcare practitioners and consumers in the [place] and therefore [employer] does not warrant that uses outside of the [place] are appropriate, unless specifically indicated otherwise. Mozys drug information does not endorse drugs, diagnose patients or recommend therapy. [employer] drug information isan informational resource designed to [...] effective or appropriate for any given patient. [employer] does not assume any responsibility for any aspect of healthcare administered with the aid of information [employer] provides. The information contained herein is not intended to cover all possible uses, directions, precautions, warnings, drug interactions, allergic reactions, or adverse effects. If you have questions about the drugs you are taking, check with your doctor, nurse or pharmacist. Copyright 6451-2772 [employer]. Version: 16.01. Revision date: 08/05/2018. Care instructions adapted under license by your healthcare professional. If you have questions about a medical condition or this instruction, always ask your healthcare professional. [employer] disclaims any warranty or liability for [...] of daily or weekly servings for a 2,691-pqudjro-a-day diet. You may need more or less [...] DASH, visit: National Heart, Lung, and Blood Proctor at www.nhlbi.nih.gov/health/health-topics/topics/dash MedlinePlus at https://medlineplus.gov/dashdiet.html Adopt healthy [...] wedges, 1 tablespoon sunflower seeds, 1 teaspoon Ugandan dressing 1 cup cantaloupe chunks cup fruit [...] cup raisins cup applesauce cup low-fat, low-sugar Pashto yogurt 1 low-fat mozzarella string cheese 2017October 26, 2018, [facility]. This handout is for informational purposes only. Talk with your doctor or healthcare team if you have any questions about your care. For more health information, call the [employer] for Health Information at [phone] or email: [email or web address]-[email or web address]. documented in this encounter* Patient Instructions* Lana [...] Where can you learn more? Go to http://www.Toptal.SpinUtopia.edu/patiented. Enter H967 in the search box to learn more about 'DASH Diet: Care Instructions.' Interested in seeing a video go to https://Toptal.Shoeboxed.edu/videolibrary to see all video content. Current as of: April 12, 2019 Content Version: 12.5 daPulse. Care instructions adapted under license by your healthcare professional. If you have questions about a medical condition or this instruction, always ask your healthcare professional. [employer] disclaims any warranty or liability for your use of this information. documented in this encounter* Patient Instructions* Lana Lombardi APRN-CNP - 01/25/2019 1:00 PM EDT [facility]ly [facility] [place] [address] or [phone] A script for ANNALISA has been sent to your paroxetine Pronunciation: yael GARCIA a teen Brand: Annalisa Waddell, Annalisa DAVENPORT, Anupama What is the most important [...] may report side effects to FDA at 3-063-ZBK-1074. What other drugs will affect paroxetine? Taking [...] may interact with paroxetine, including prescription and odpb-nim-mezytux medicines, vitamins, and herbal products. Not all [...] to ensure that the information provided by [employer]. ('Multum') is accurate, up-to-date, and complete, but no guarantee is made to that effect. Drug information contained herein may be time sensitive. [employer] information has been compiled for use by healthcare practitioners and consumers in the [place] and therefore [employer] does not warrant that uses outside of the [place] are appropriate, unless specifically indicated otherwise. Mozys drug information does not endorse drugs, diagnose patients or recommend therapy. [employer]ys drug information isan informational resource designed to [...] effective or appropriate for any given patient. [employer] does not assume any responsibility for any aspect of healthcare administered with the aid of information [employer] provides. The information contained herein is not intended to cover all possible uses, directions, precautions, warnings, drug interactions, allergic reactions, or adverse effects. If you have questions about the drugs you are taking, check with your doctor, nurse or pharmacist. Copyright 0612-1880 [employer]. Version: 26.01. Revision date: 09/02/2016. Care instructions adapted under license by your healthcare professional. If you have questions about a medical condition or this instruction, always ask your healthcare professional. [employer] disclaims any warranty or liability for your [...] ONE daily. buspirone Pronunciation: valerie riley Brand: Oskar What is the most important information I [...] may report side effects to FDA at 2-062-JCK-4006. What other drugs will affect buspirone? Taking this medicine with other drugs that make you sleepy or slow your breathing can worsen these effects. Ask your doctor before taking buspirone with a sleeping pill, narcotic pain medicine, muscle relaxer, or medicine for anxiety, depression, or seizures. Other drugs may interact with buspirone, including prescription and micq-rig-tiqzsjq medicines, vitamins, and herbal products. Tell each [...] to ensure that the information provided by [employer]. ('Multum') is accurate, up-to-date, and complete, but no guarantee is made to that effect. Drug information contained herein may be time sensitive. [employer] information has been compiled for use by healthcare practitioners and consumers in the [place] and therefore [employer] does not warrant that uses outside of the [place] are appropriate, unless specifically indicated otherwise. Moz[employer] drug information does not endorse drugs, diagnose patients or recommend therapy. [employer] drug information isan informational resource designed to [...] effective or appropriate for any given patient. [facility] does not assume any responsibility for any aspect of healthcare administered with the aid of information [facility] provides. The information contained herein is not intended to cover all possible uses, directions, precautions, warnings, drug interactions, allergic reactions, or adverse effects. If you have questions about the drugs you are taking, check with your doctor, nurse or pharmacist. Copyright 7439-0710 [employer]. Version: 5.01. Revision date: 04/10/2015. Care instructions adapted under license by your healthcare professional. If you have questions about a medical condition or this instruction, always ask your healthcare professional. [employer] disclaims any warranty or liability for your [...] 11:13 AM EDT PATIENT NAME: Lele Dacosta [facility] [address] [place] [id number] : 1985 DATE OF VISIT: 10/13/2018 SS#: [id number] PROVIDER: Yasmin Brown CNP Chief Complaint [...] file Gets together: Not on file Attends mandaen service: Not on file Active member of [...] OTC supplements/vitamins. Reports she has a personal security specialist and exercises 2-3 times a week (past [...] weight loss and diet. Offered referral to tile setter. Pt declined at this time. SAKINA Sears [...] is 9. Going to counseling at [facility] in [place]. She has previously tried Zoloft and Lexapro. [...] times daily as needed. 60 tablet 1 xbcdebdh-wdpimoomr-aytmmytrghlcl 3.5-39688-7.[address] 1 drop in both eyes [...] tablet; Take 1 tablet by mouth daily. Mady Bustillo LPN - 06/10/2019 8:10 AM EST Patient here today for depression/anxiety. On buspirone and paxil. Feels stable on medication. S/S include anxiousness. Feels like this has been better. documented in this encounter* Lana Lombardi, CRISTOPHER-FINANCIAL ACCOUNTING MANAGER - 06/25/2019 1:20 PM EST Elevated blood [...] Lele presents after having been seen at [facility] ER on 12/05/19. States pain seemed to start around the same time as her period. 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 - AMB REFERRAL TO OB-LIQUEFIED PETROLEUM GASFITTER Other orders - cyclobenzaprine 10 MG tablet; [...] normal stress. Previously seeing counselor at [facility] in [place] but cannot afford it at $140/hr. Elevated [...] has been madeto [facility] in [place]. Pt does not want to be seen in [place]. Online referral made for her , as [...] 20. documented in this encounter* Lana Lombardi APRN-FINANCIAL ACCOUNTING MANAGER - 03/17/2019 9:00 AM EST PTSD Lele [...] [facility] [place], as recommended at her last appointment. She [...] her two small children with her today. [employer], appropriate interaction between mother and children. ICD-10-CM [...] PTSD. She is going to counseling at [facility] in [place]. On paroxetine. 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 Social Needs Financial resource strain: Not hard [...] Gets together: Three times a week Attends mandaen service: Never Active member of club or [...] all documented in this encounter Advance Directives Documents on File Type Date Recorded Patient Gang Tailer Expl anation Advance Directives and Living Will Documents on File Type Date Recorded Patient Gang Tailer Expl anation Advance Directives and Living Will Documents on File Type Date Recorded Patient Gang Tailer Expl anation Advance Directives and Livin g Will 12/08/2020 11:44 PM Advance Directive Response Recorded Date/ Time Advance Directives No February 16, 2024 12:13pm Summary Purpose Family History No Family History [...] Establish Care Was with Dr Brennan in [facility]- seen him once- but is hanging because she works in [place] now.Was seeing a counselor but they decided [...] General Surgery Diagnoses Galactorrhea Ariana Garza PA-C [address] [place] [address] Ashley Mcdaniel III, MD [address] [place] [address] Referral ID Status Reason Start Date Expiration Date Visits Re quested Visits Authorized [id number] Closed 04/25/2023 04/24/2024 1 1 Reason Onset Date Comments Results 07/03/2023 Reason Comments Follow-up No issues Specialty Diagnoses / Procedures Referred By Kofi beltran Referred To Contact Plastic Surgery Diagnoses History of lump of right breast Ariana Garza PA-C [address] [place] [address] Tracy Alejandre II, MD [address] [place] [address] Referral ID Status Reason Start Date Expiration Date Visits Re quested Visits Authorized [id number] Closed 09/24/2023 09/23/2024 1 1 Reason Comments Initial Visit (Intake) Right nipple Disc harge.[facility] [facility] INFORMATION SOURCE (unrecogn ized section and content) DATE CREATED AUTHOR 10/17/2018 [facility] DATE CREATED AUTHOR AUTHOR'S ORGANIZ ATION 12/25/2019 [facility] [place] [facility] DATE CREATED AUTHOR AUTHOR'S ORGANIZ ATION 12/15/2020 [facility] DATE CREATED AUTHOR AUTHOR'S ORGANIZ ATION 07/31/[address] [facility] DATE CREATED AUTHOR AUTHOR'S ORGANIZ ATION 11/12/2023 [facility] DATE CREATED AUTHOR AUTHOR'S ORGANIZ ATION 11/29/2023 [facility] DATE CREATED AUTHOR AUTHOR'S ORGANIZ ATION 01/15/2024 [facility] DATE CREATED AUTHOR AUTHOR'S ORGANIZ ATION 01/27/2024 [facility] DATE CREATED AUTHOR AUTHOR'S ORGANIZ ATION 02/22/2024 [facility] DATE CREATED AUTHOR AUTHOR'S ORGANIZ ATION 03/03/2024 [facility] d[facility] Specialists Surekha Gary MD - 12/05/2019 10:30 PM EDT ED Notes (unrecognized secti on and content) Emergency Department Report [facility] Service Date:.12/06/19 PCP: Lana Lombardi [...] file Gets together: Not on file Attends mandaen service: Not on file Active member of [...] Care Teams (unrecognized sec tion and content) Clean Room Assembler Relationship Specialty Start Date End Date Maikel Leal MD [address] [place] [address] PCP - General Family Medicine 08/04/20 Love Jimenez CNP [address] [place] [address] PCP - JASBIR Attributed Provider - [facility] 01/27/20 04/27/50 Clean Room Assembler Relationship Specialty Start Date End Date Maikel Leal MD [address] [place] [address] PCP - General Family Medicine 08/04/20 Love Jimenez CNP [address] [place] [address] PCP - JASBIR Attributed Provider - [facility] 01/27/20 04/27/50 Clean Room Assembler Relationship Specialty Start Date End Date Maikel Leal MD [address] [place] [address] PCP - General Family Medicine 08/04/20 Love Jimenez CNP [address] [place] [address] PCP - JASBIR Attributed Provider - [facility] 01/27/20 04/27/50 Elisha Fuentes, RN Patient Navigator Nursing 09/21/21 Clean Room Assembler Relationship Specialty Start Date End Date Maikel Leal MD [address] [place] [address] PCP - General Family Medicine 08/04/20 Love Jimenez, DAMARIS [address] [place] [address] PCP - JASBIR Attributed Provider - [facility] 01/27/20 04/27/50 Elisha Fuentes RN Patient Navigator Nursing 09/21/21 Clean Room Assembler Relationship Specialty Start Date End Date Maikel Leal MD [address] [place] [address] PCP - General Family Medicine 08/04/20 Love Jimenez, DAMARIS [address] [place] [address] PCP - JASBIR Attributed Provider - [facility] 01/27/20 04/27/50 Elisha Fuentes RN Patient Navigator Nursing 09/21/21 Clean Room Assembler Relationship Specialty Start Date End Date Maikel Leal MD [address] [place] [address] PCP - General Family Medicine 08/04/20 Love Jimenez CNP [address] [place] [address] PCP - JASBIR Attributed Provider - [facility] 01/27/20 04/27/50 Clean Room Assembler Relationship Specialty Start Date End Date Love Jimenez, DAMARIS [address] [place] [address] PCP - JASBIR Attributed Provider - [facility] 01/27/20 04/27/50 Love Jimenez CNP [address] [place] [address] PCP - JASBIR Attributed Provider - [facility] 01/27/20 04/27/50 Ariana Garza PA-C [address] [place] [address] PCP - General Physician Medical Records Secretary 02/05/22 Clean Room Assembler Relationship Specialty Start Date End Date Love Jimenez Radha, FINANCIAL ACCOUNTING MANAGER [address] [place] [address] PCP - JASBIR Attributed Provider - [facility] 01/27/20 04/27/50 Barbara, Love Garcia, FINANCIAL ACCOUNTING MANAGER [address] [place] [address] PCP - JASBIR Attributed Provider - [facility] 01/27/20 04/27/50 Ariana Garza PA-C [address] [place] [address] PCP - General Physician Medical Records Secretary 02/05/22 Clean Room Assembler Relationship Specialty Start Date End Date Ariana Garza PA-C [address] [place] [address] PCP - General Physician Medical Records Secretary 02/05/22 Clean Room Assembler Relationship Specialty Start Date End Date Ariana Garza PA-C [address] [place] [address] PCP - General Physician Medical Records Secretary 02/05/22 Clean Room Assembler Relationship Specialty Start Date End Date Ariana Garza PA-C [address] [place] [address] PCP - General Physician Medical Records Secretary 02/05/22 Clean Room Assembler Relationship Specialty Start Date End Date Ariana Garza PA-C [address] [place] [address] PCP - General Physician Medical Records Secretary 02/05/22 Clean Room Assembler Relationship Specialty Start Date End Date Ariana Garza PA-C [address] [place] [address] PCP - General Physician Medical Records Secretary 02/05/22 Clean Room Assembler Relationship Specialty Start Date End Date Ariana Garza PA-C [address] [place] [address] PCP - General Physician Medical Records Secretary 02/05/22 Clean Room Assembler Relationship Specialty Start Date End Date Ariana Garza PA-C [address] [place] [address] PCP - General Physician Medical Records Secretary 02/05/22 Clean Room Assembler Relationship Specialty Start Date End Date Ariana Garza PA-C [address] [place] [address] PCP - General Physician Medical Records Secretary 02/05/22 Klaudia Marley, RN Registered Nurse Nursing 06/18/23 Clean Room Assembler Relationship Specialty Start Date End Date Ariana Garza PA-C [address] [place] [address] PCP - General Physician Medical Records Secretary 02/05/22 Klaudia Marley, RN Registered Nurse Nursing 06/18/23 Clean Room Assembler Relationship Specialty Start Date End Date Ariana Garza PA-C [address] [place] [address] PCP - General Physician Medical Records Secretary 02/05/22 Clean Room Assembler Relationship Specialty Start Date End Date Ariana Garza PA-C [address] [place] [address] PCP - General Physician Medical Records Secretary 02/05/22 Clean Room Assembler Relationship Specialty Start Date End Date Ariana Garza PA-C [address] [place] [address] PCP - General Physician Medical Records Secretary 02/05/22 Clean Room Assembler Relationship Specialty Start Date End Date Love Jimenez CNP [address] [place] [address] PCP - JASBIR Attributed Provider - [facility] 01/27/20 04/27/50 Ariana Garza PA-C [facility] [place] [address] PCP - General Physician Medical Records Secretary 02/05/22 Clean Room Assembler Relationship Specialty Start Date End Date Love Jimenez CNP [address] [place], [facility] PCP - JASBIR Attributed Provider - [facility] 01/27/20 04/27/50 Ariana Garza PA-C [facility] [place] [address] PCP - General Physician Medical Records Secretary 02/05/22 Clean Room Assembler Relationship Specialty Start Date End Date Love Jimenez CNP [address] [place] [address] PCP - JASBIR Attributed Provider - [facility] 01/27/20 04/27/50 Ariana Garza PA-C [address] [place] [address] PCP - General Physician Medical Records Secretary 02/05/22 Clean Room Assembler Relationship Specialty Start Date End Date Hawk Anaya DO [address] [place] [address] Consulting Physician Obstetrics/Gynecology 01/12/24 Alyssa Prakash CNP [address] [facility] [address] [place] [address] Nurse Practitioner 01/12/24 Clean Room Assembler Relationship Specialty Start Date End Date Hawk Anaya [address] [place] [address] Consulting Physician Obstetrics/Gynecology 01/12/24 Alyssa Prakash CNP [address] [facility] [address] [place] [address] Nurse Practitioner 01/12/24 Team Status: Inactive Member Role Status Dates Hawk Anaya DO Attending Provider Active Start : February 13, 2024 End: February 13, 2024 Goals (unrecognized section and content) Goals may be documented in a n alternate section FOR RECORDS PERTAINING TO PATIENTS WHO ARE [...] BE BASED ON THE PRIMARY CLINICAL RECORDS. [facility] [employer] [facility]. provides no warranty or guarantee of the accuracy or completeness of information in this document.
[2024-03-24 08:43] LABS: Basophils Percent Auto 0.4 % (0.2-2.0); Eosinophils Absolute Auto 0.1 10^3/uL (0.0-0.7); Eosinophils Percent Auto 1.6 % (0.9-7.0); Hematocrit 39.3 % (36.0-48.0); Immature Granulocytes Abs Auto 0.02 10^3/uL (0.00-0.03); Immature Granulocytes Pct Auto 0.3 % (0.0-0.5); Lymphocytes Absolute Auto 1.9 10^3/uL (1.2-3.8); Mean Corpuscular HGB Conc 33.1 g/dL (29.9-35.2); Mean Corpuscular Hemoglobin 29.7 pg (26.7-34.0); Mean Corpuscular Volume 89.7 fL (81.0-99.0); Mean Platelet Volume 10.1 fL (9.5-13.5); Monocytes Absolute Auto 0.5 10^3/uL (0.3-0.8); Monocytes Percent Auto 5.7 % (1.7-12.0); Neutrophils Absolute Auto 5.4 10^3/uL (1.4-6.5); Platelet Count 368 10^3/uL (150-450); Red Blood Count 4.38 10^6/uL (4.20-5.40); Red Cell Distribution Width 14.2 % (11.0-15.0); White Blood Count 7.9 10^3/uL (4.0-11.0)
[2024-03-24 08:54] LABS: INR 0.97; Partial Thromboplastin Time 26.2 sec (22.3-36.2); Prothrombin Time 10.3 sec (9.0-11.6)
[2024-03-24 09:33] LABS: Anion Gap 11.5; BUN Creatinine Ratio 11.5; Calcium 8.5 mg/dL (8.5-10.1); Carbon Dioxide 25.2 mmol/L (21.0-32.0); Chloride 103 mmol/L (98-107); Estimated GFR (African America >60 (>=60 mL/min/1.73m^2); Estimated GFR (Non-African Ame >60 (>=60 mL/min/1.73m^2); Glucose 150 mg/dL (74-106); Potassium 3.7 mmol/L (3.5-5.1); Sodium 136 mmol/L (136-145)
[2024-03-24 10:44] LABS: Alanine Aminotransferase 37 U/L (14-59); Albumin Globulin Ratio 0.8; Albumin Level 3.2 g/dL (3.4-5.0); Alkaline Phosphatase 90 U/L (46-116); Aspartate Amino Transferase 16 U/L (15-37); Bilirubin Direct 0.1 mg/dL (0.0-0.2); Bilirubin Total 0.4 mg/dL (0.2-1.0); Globulin 3.9 g/dL; Total Protein 7.1 g/dL (6.4-8.2)
== END 2024-03-24 07:54 | disposition home or self-care (01) ==
LOC: PST 07:54
PROVIDERS: Visit Provider Obstetrics & Gynecology
DX: Z01.810 Encounter for preprocedural cardiovascular examination (principal); N92.0 Excessive and frequent menstruation with regular cycle; R10.2 Pelvic and perineal pain; N94.6 Dysmenorrhea, unspecified
CPT/HCPCS: 36415; 80048; 80076; 85025; 85610; 85730; 86850; 86900; 86901

== ENCOUNTER 2024-03-31 06:10 | Day surgery (SDC) | payer BC, SELFPAY ==
[2024-03-24 08:28] VITALS: BP 137/90; PULSE 83; TEMP 36.3; O2SAT 97; BMI 53.6
[2024-03-31] VITALS (13 sets, daily range): BP systolic 118–148; BP diastolic 71–85; PULSE 77–102; TEMP 36.1–37.3; O2SAT 93–99; BMI 53.6
--- OUTSIDE RECORDS SUMMARY | 2024-03-31 06:14 | XMS_ITS | CCD ---
Author Organization [facility] Care Team Providers Care Flow Floor Attendant Name Role Phone Jose Manuel Falcon Unavailable [...] Primary Care Provider Love Jimenez CNP Unavailable [phone] Maikel Leal MD Primary Care Provider Love Jimenez CNP Unavailable [phone] Elisha Fuentes RN Unavailable Unavailable BarbaraLove stern CNP Unavailable [phone] Ariana Garza PA-C Primary Care Provide r [...] le CONNIFF, ARIANA REYES Attending Unavailab marixa Barbara Love OCAMPO Unavailable CONNIFF, ARIANA REYES Primary Care Unavailab [...] Unavailab le CONNIFF, ARIANA REYES Attending Unavailab ASHLEY Sky III Attending Unav ailable CONNIFF, ARIANA REYES Primary Care Unavailab marixa GARZA, ARIANA REYES Referring Unavailab le CONNIFF, ARIANA REYES Attending Unavailab le STEPHANIEIFF, ARIANA REYES Primary Care Unavailab Hawk France DO R Unavailable Alyssa Prakash CNP Unavailable Sasha Alcala Attending Unavailable Hawk Anaya Referring Unavailable KAYLA, ARIANA REYES Primary Care Unavailab ALYSSA De La Torre Attending Unavailable ALYSSA PRAKASH Attending Unavailable Unavailable Primary Care Provider UnavailDO Hawk Turner Attending Provider Lamont Anayay Attending Unavailable HéctorLamont cavazosy Admitting Unavailable HÉCTORLAMONT CAVAZOSY Attending Unavailable HÉCTOR, HAWK Attending Unavailable HÉCTORLAMONTY Attending Unavailable HAWK ANAYA Attending Unavailable Allergies Allergy Classification Reported Allergen(s) Allergy Type Date of Onset Reaction(s) Facility NSAIDs (1 source) Ibuprofen Drug Allergy 9 GI Intolerance [facility] (20 sources) Ibuprofen; Translations: [Unknown] Drug Allergy 8 Nausea and Vomiting, GI Intolerance [facility] Work Phone: (20 sources) bee venom Propensity to adverse reactions to drug 9 Anaphylaxis [facility] (5 sources) BEE VENOM PROTEIN (HONEY BEE); Translations: [BEE VENOM PROTEIN (HONEY BEE)] Propensity to adverse reactions to drug (disorder) 9 [facility] Repository (1 source) Ibuprofen Drug Allergy 4 [facility] (6 sources) Honey bee venom Propensity to adverse reactions 9 Anaphylaxis [facility] Work Phone: Medications Current Medications Medication Drug [...] mg / trimethoprim 160 mg oral tablet (8 sources) Dihydrofolate Reductase Inhibitor Antibacterial, Sulfonamide Antimicrobial [...] / neomycin 3.5 mg/ml / polymyxin b 30039 unt/ml ophthalmic suspension (1 source) Aminoglycoside Antibacterial, Polymyxin-class Antibacterial, Corticosteroid Start: 05-07-2019 End: 06-10-2019 take 1 drop(s) into the eye(s) every four hours gkrrlwsa-bydanjamy-ihswimojbvrgw 3.5-49160-4.[address] 1 drop in both eyes every 4 hours while awake. 5 mL 0 05/07/2019 06/10/2019 Discontinued 30 ml EPINEPHrine 0.005 mg/ml / lidocaine hydrochloride 10 mg/ml injection (1 source) Antiarrhythmic, alpha-Adrenergic Agonist, beta-Adrenergic Agonist, Catecholamine, Amide Local Anesthetic Start: 03-18-2018 End: 03-18-2018 lidocaine-epinephrine 1%-1:2 78758 injection SOLN 10 mL Start: 03-18-2018 End: 03-18-2018 lidocaine-epinephrine 1%-1:2 58704 injection SOLN 10 mL lidocaine 0.05 mg/mg [...] disorder, single episode, moderate] Onset: 01-23-2023 Chronic Other circulatory disease (1 source) Elevated blood [...] Prediabetes; Translations: [Prediabetes] Onset: 01-23-2023 09-04-2022 Episodic Nonmalignant breast conditions (20 sources) Lump in right breast; Translations: [Unspecified lump in the right breast, unspecified quadrant] Onset: 04-01-2023 Episodic Other non-traumatic joint disorders (2 sources) [...] CBC WITH AUTO DIFFon BASOPHILS ABSOLUTE AUTO 0 [facility] Basophils/100 WBC (Bld) 0.4 % 0.2 - 2.0 % [facility] Eosinophils/100 WBC (Bld) 1.6 % 0.9 - 7.0 % [facility] Erythrocyte distribution width (RBC) [Ratio] 14.2 % 11.0 - 15.0 % [facility] Hematocrit (Bld) [Volume fraction] 39.3 % 36.0 - 48.0 % [facility] ([facility]ld[facility] [Mass/Vol] 13 g/dL 12.0 - 16.0 g/dL [facility] IMMATURE GRANULOCYTES ABS AUTO 0.02 [facility] Immature granulocytes/100 WBC (Bld) 0.3 % 0.0 - 0.5 % [facility] LYMPHOCYTES ABSOLUTE AUTO 1.9 [facility] Lymphocytes/100 WBC (Bld) 24 % 20.5 - 60.0 % [facility] MCH (RBC) [Entitic mass] 29.7 pg 26.7 - 34.0 pg [facility] MCHC (RBC) [Mass/Vol] 33.1 g/dL 29.9 - 35.2 g/dL [facility] MCV (RBC) [Entitic vol] 89.7 fL 81.0 - 99.0 fL [facility] MONOCYTES ABSOLUTE AUTO 0.5 [facility] Monocytes/100 WBC (Bld) 5.7 % 1.7 - 12.0 % [facility] NEUTROPHILS ABSOLUTE AUTO 5.4 [facility] Neutrophils/100 WBC (Bld) 68 % 43.0 - 75.0 % [facility] Platelet mean volume (Bld) [Entitic vol] 10.1 fL 9.5 - 13.5 fL [facility] EO # 0.1 [facility] PLT 368 [facility] RBC 4.38 [facility] WBC 7.9 [facility] ALL CBC WITH AUTO DIFFon BASOPHILS ABSOLUTE AUTO 0.1 [facility] Basophils/100 WBC (Bld) 0.6 % 0.2 - 2.0 % [facility] Eosinophils/100 WBC (Bld) 2 % 0.9 - 7.0 % [facility] Erythrocyte distribution width (RBC) [Ratio] 14.6 % 11.0 - 15.0 % [facility] Hematocrit (Bld) [Volume fraction] 39.5 % 36.0 - 48.0 % [facility] Health[facility] e Hemoglobin (Bld) [Mass/Vol] 12.8 g/dL 12.0 - 16.0 g/dL [facility] IMMATURE GRANULOCYTES ABS AUTO 0.03 [facility] Immature granulocytes/100 WBC (Bld) 0.3 % 0.0 - 0.5 % [facility] LYMPHOCYTES ABSOLUTE AUTO 2.2 [facility] Lymphocytes/100 WBC (Bld) 24.3 % 20.5 - 60.0 % [facility] MCH (RBC) [Entitic mass] 29.3 pg 26.7 - 34.0 pg [facility] MCHC (RBC) [Mass/Vol] 32.4 g/dL 29.9 - 35.2 g/dL [facility] MCV (RBC) [Entitic vol] 90.4 fL 81.0 - 99.0 fL [facility] MONOCYTES ABSOLUTE AUTO 0.7 [facility] Monocytes/100 WBC (Bld) 7.6 % 1.7 - 12.0 % [facility] NEUTROPHILS ABSOLUTE AUTO 5.9 [facility] Neutrophils/100 WBC (Bld) 65.2 % 43.0 - 75.0 % [facility] Platelet mean volume (Bld) [Entitic vol] 10.2 fL 9.5 - 13.5 fL [facility] EO # 0.2 [facility] PLT 353 [facility] RBC 4.37 [facility] WBC 9 [facility] Pathology Request for Lab Co rpon 02-13-2024 Pathology Request for Lab Mundo Normal [facility] Comment on above: Order Comment: PATHO LOGY FOURDRINIER OPERATOR SPECIMEN Result Comment: See report. Scanned copy available in EMR. PERFORMED BY: [facility] [address] [place] [address] PATHOLOGIST PUBLIC STENOGRAPHER HAYDEE FRANKLIN M.D. Performed By: #### P ATH TO [facility] #### [address] IGP,APTIMA HPV,AGE GDLNon AGE GDLN ACOG TESTING Note . [facility] Comment on above: TESTS RESULT FLAG UN ITS REF RANGE LAB Clinician Provided Cytology Information Source.............Cervix;Endocervix No. of containers..01 ThinPrep Vial Age Algo ACOG Drea... 66 FLAG LEGEND: L-Low Normal,H-High Normal,LL-Alert Low,HH-Alert High <-Panic Low,>-Panic High,A-Abnormal,AA-Critical Abnormal Performed at: 01 =G [facility] [address] [place] [address] Vianney Rod MD, HPV APTIMA Negative Negative [facility] Comment on above: This nucleic acid am plification test detects fourteen high- risk HPV types (16,18,31,33,35,39,45,51,52,56,58,59,66,68) without differentiation. Performed at: =G - [facility] [id number] [employer] Control Officer: Vianney Rod MD, Phone: [phone] Performed at: - [facility] [id number] [employer] Control Officer: Vianney Rod MD, Phone: [phone] IGP, APTIMA HPV, RFX 16/18,45 Note . [facility] Comment on above: TESTS RESULT FLAG UN ITS REF RANGE LAB DIAGNOSIS: 02 NEGATIVE FOR INTRAEPITHELIAL LESION OR MALIGNANCY. Specimen adequacy: 02 Satisfactory for evaluation. No endocervical component is identified. Performed by: Trish Hermosillo, Protective Signal Operations Supervisor ([facility]) . 02 Note: Note 02 The Pap [...] <-Panic Low,>-Panic High,A-Abnormal,AA-Critical Abnormal Performed at: 02 [facility] [place] [address] Vianney Rod MD, BRUSH-SPATULA CERVIX ENDOCERVIX [facility] BODY FLUID AEROBIC CULTUREon 01-12-2024 BODY FLUID AEROBIC CULTURE AEROBIC CULTURE No Growth after 5 days GRAM STAIN RESULT WBC This is a corrected result. Previous result was Many WBC No Organisms Seen Normal [facility] Comment on above: Performed By: #### 4 [id number] #### [facility] [place] [address] Javier Santana M.D. [id number] Plastic Surgery Visit Report on 12-31-2023 Plastic Surgery Visit Report [facility] Plastic Reconstructive Surgery [address], [address] [place] [id number] OFFICE VISIT Date of Service: 12/31/23 MR#: [id number] Acct: [id number] Name: LELE LEON Rep #: [id number] : 1985 Provider: Dr. Sasha abdi MD Age/Sex: 38/F Location: [facility] Status: Signed Intake Vital Signs 12/31/23 [...] consult due to cyst in breast, painful [facility] Medical History (Updated 12/31/23 @ 12:40 by [...] her to their in-house plastic surgeon at [place]. She underwent a needle biopsy of the [...] I had (more content not included)... Normal [facility] CBC WITH AUTO DIFFERENTIALon 10-17-2023 AUTO NRBC 0.0 % Normal [facility] Comment on above: Performed By: #### L [id number] #### [facility] [address] [place], [place] [address] Tenisha Vizcarra M.D. [id number] AUTO NRBC ABS COUNT 0.00 K/mcL Normal 0.00-0.00 [facility] Comment on above: Performed By: #### L [id number] #### [facility] [address] [place], [place] [address] Tenisha Vizcarra M.D. [id number] BASOPHILS ABSOLUTE COUNT 0.04 K/mcL Normal 0.00-0.30 [facility] Comment on above: Performed By: #### L [id number] #### [facility] [address] [place], [place] [address] Tenisha Vizcarra M.D. [id number] Basophils/100 WBC (Bld) 0.5 % Normal [facility] Comment on above: Performed By: #### L [id number] #### [facility] [address] [place], [place] [address] Tenisha Vizcarra M.D. [id number] Eosinophils (Bld) [#/Vol] 0.14 10*3/uL Normal 0.00-0.50 [facility] Comment on above: Performed By: #### L [id number] #### [facility] [address] [place] [address] Tenisha Vizcarra M.D. [id number] Eosinophils/100 WBC (Bld) 1.7 % Normal [facility] Comment on above: Performed By: #### L [id number] #### [facility] [address] [place] [address] Tenisha Vizcarra M.D. [id number] Erythrocyte distribution width (RBC) [Ratio] 14.2 % Normal 11.6-14.8 [facility] Comment on above: Performed By: #### L [id number] #### [facility] [address] [place] [address] Tenisha Vizcarra M.D. [id number] Hematocrit (Bld) [Volume fraction] 40.2 % Normal 36.0-46.0 [facility] Comment on above: Performed By: #### L [id number] #### [facility] [address] [place] [address] Tenisha Vizcarra M.D. [id number] Hemoglobin (Bld) [Mass/Vol] 13.2 g/dL Normal 12.0-16.0 [facility] Comment on above: Performed By: #### L [id number] #### [facility] [address] [place], [place] [address] Tenisha Vizcarra M.D. [id number] IG ABSOLUTE 0.03 K/mcL Normal 0.00-0.30 [facility] Comment on above: Performed By: #### L [id number] #### [facility] [address] [place] [address] Tenisha Vizcarra M.D. [id number] IG PERCENT 0.40 % Normal [facility] Comment on above: Result Comment: The IG parameter is the percentage of metamyelocytes, myelocytes and promyelocytes. An immature granulocyte count (IG) of 1% or more suggests the possibility of infection, an IG count of 3% is very likely related to an infection. Performed By: #### L [id number] #### [facility] [address] [place] [address] Tenisha Vizcarra M.D. [id number] Lymphocytes (Bld) [#/Vol] 2.38 10*3/uL Normal 0.90-4.00 [facility] Comment on above: Performed By: #### L [id number] #### [facility] [address] [place] [address] Tenisha Vizcarra M.D. [id number] Lymphocytes/100 WBC (Bld) 29.5 % Normal [facility] Comment on above: Performed By: #### L [id number] #### [facility] [address] [place] [address] Tenisha Vizcarra M.D. [id number] MCH (RBC) [Entitic mass] 29.6 pg Normal 26.0-34.0 [facility] Comment on above: Performed By: #### L [id number] #### [facility] [address] [place] [address] Tenisha Vizcarra M.D. [id number] MCV (RBC) [Entitic vol] 90.1 fL Normal 80.0-100.0 [facility] Comment on above: Performed By: #### L [id number] #### [facility] [address] [place] [address] Tenisha Vizcarra M.D. [id number] MEAN CORPUSCULAR HEMOGLOBIN CONC 32.8 g/dL Normal 31.0-37.0 [facility] Comment on above: Performed By: #### L [id number] #### [facility] [address] [place] [address] Tenisha Vizcarra M.D. [id number] Monocytes (Bld) [#/Vol] 0.57 10*3/uL Normal 0.30-0.90 [facility] Comment on above: Performed By: #### L [id number] #### [facility] [address] [place], [place] [address] Tenisha Vizcarra M.D. [id number] Monocytes/100 WBC (Bld) 7.1 % Normal [facility] Comment on above: Performed By: #### L [id number] #### [facility] [address] [place], [place] [address] Tenisha Vizcarra M.D. [id number] NEUTROPHILS ABSOLUTE COUNT 4.91 K/mcL Normal 1.70-7.00 [facility] Comment on above: Performed By: #### L [id number] #### [facility] [address] [place], [place] [address] Tenisha Vizcarra M.D. [id number] Neutrophils/100 WBC (Bld) 60.8 % Normal [facility] Comment on above: Performed By: #### L [id number] #### [facility] [address] [place], [place] [address] Tenisha Vizcarra M.D. [id number] Platelet mean volume (Bld) [Entitic vol] 10.6 fL Normal 9.4-12.4 [facility] Comment on above: Performed By: #### L [id number] #### [facility] [address] [place], [place] [address] Tenisha Vizcarra M.D. [id number] Platelets (Bld) [#/Vol] 371 10*3/uL Normal 150-400 [facility] Comment on above: Performed By: #### L [id number] #### [facility] [address] [place], [place] [address] Tenisha Vizcarra M.D. [id number] RBC (Bld) [#/Vol] 4.46 10*6/uL Normal 4.00-5.20 [facility] Comment on above: Performed By: #### L [id number] #### [facility] [address] [place], [place] [address] Tenisha Vizcarra M.D. [id number] WBC (Bld) [#/Vol] 8.07 10*3/uL Normal 4.50-11.00 [facility] Comment on above: Performed By: #### L [id number] #### [facility] [address] [place], [place] [address] Tenisha Vizcarra M.D. [id number] COMPREHENSIVE METABOLIC PANE Chema 10-17-2023 Albumin [Mass/Vol] 3.8 g/dL Normal 3.2-5.2 [facility] Comment on above: Order Comment: [facility] has implemented the eGFR calculation approach that does not have a coefficient for race that conforms to the NKF-ASN Task Force Recommendations. Performed By: #### 4 [id number] #### [facility] [address] [place], [place] [address] Tenisha Vizcarra M.D. [id number] ALP [Catalytic activity/Vol] 81 U/L Normal 40-140 [facility] Comment on above: Order Comment: [facility] has implemented the eGFR calculation approach that does not have a coefficient for race that conforms to the NKF-ASN Task Force Recommendations. Performed By: #### 4 [id number] #### [facility] [address] [place], [place] [address] Tenisha Vizcarra M.D. [id number] ALT [Catalytic activity/Vol] 15 U/L Normal 0-35 U/L [facility] Comment on above: Order Comment: [facility] has implemented the eGFR calculation approach that does not have a coefficient for race that conforms to the NKF-ASN Task Force Recommendations. Performed By: #### 4 [id number] #### [facility] [address] [place], [place] [address] Tenisha Vizcarra M.D. [id number] Anion gap [Moles/Vol] 12 mmol/L Normal 10-20 [facility] Comment on above: Order Comment: [facility] has implemented the eGFR calculation approach that does not have a coefficient for race that conforms to the NKF-ASN Task Force Recommendations. Performed By: #### 4 [id number] #### [facility] [address] [place], [place] [address] Tenisha Vizcarra M.D. [id number] AST [Catalytic activity/Vol] 16 U/L Normal 0-35 U/L [facility] Comment on above: Order Comment: [facility] has implemented the eGFR calculation approach that does not have a coefficient for race that conforms to the NKF-ASN Task Force Recommendations. Performed By: #### 4 [id number] #### [facility] [address] [place], [place] [address] Tenisha Vizcarra M.D. [id number] Bilirubin [Mass/Vol] 0.3 mg/dL Normal 0.0-1.3 [facility] Comment on above: Order Comment: [facility] has implemented the eGFR calculation approach that does not have a coefficient for race that conforms to the NKF-ASN Task Force Recommendations. Performed By: #### 4 [id number] #### [facility] [address] [place] [address] Tenisha Vizcarra M.D. [id number] Calcium [Mass/Vol] 9.2 mg/dL Normal 8.4-10.2 [facility] Comment on above: Order Comment: [facility] has implemented the eGFR calculation approach that does not have a coefficient for race that conforms to the NKF-ASN Task Force Recommendations. Performed By: #### 4 [id number] #### [facility] [address] [place] [address] Tenisha Vizcarra M.D. [id number] Chloride [Moles/Vol] 105 mmol/L Normal 98-108 [facility] Comment on above: Order Comment: [facility] has implemented the eGFR calculation approach that does not have a coefficient for race that conforms to the NKF-ASN Task Force Recommendations. Performed By: #### 4 [id number] #### [facility] [address] [place], [place] [address] Tenisha Vizcarra M.D. [id number] Creatinine [Mass/Vol] 0.66 mg/dL Normal 0.40-1.10 [facility] Comment on above: Order Comment: [facility] has implemented the eGFR calculation approach that does not have a coefficient for race that conforms to the NKF-ASN Task Force Recommendations. Performed By: #### 4 [id number] #### [facility] [address] [place] [address] David CondonD. [id number] EGFR 116 mL/min/1.73 m2 Normal >=60 [facility] Comment on above: Order Comment: [facility] has implemented the eGFR calculation approach that does not have a coefficient for race that conforms to the NKF-ASN Task Force Recommendations. Result Comment: Coco mated GFR was calculated using the 2020 CKD-EPI creatinine equation. Performed By: #### 4 6126 #### [facility] [address] [place], [place] [address] Tenisha Vizcarra M.D. [id number] Glucose [Mass/Vol] 115 mg/dL High 65-99 [facility] Comment on above: Order Comment: [facility] has implemented the eGFR calculation approach that does not have a coefficient for race that conforms to the NKF-ASN Task Force Recommendations. Performed By: #### 4 [id number] #### [facility] [address] [place], [place] [address] Tenisha Vizcarra M.D. [id number] HCO3 (Bld) [Moles/Vol] 24 mmol/L Normal 21-32 [facility] Comment on above: Order Comment: [facility] has implemented the eGFR calculation approach that does not have a coefficient for race that conforms to the NKF-ASN Task Force Recommendations. Performed By: #### 4 [id number] #### [facility] [address] [place], [place] [address] Tenisha Vizcarra M.D. [id number] Potassium [Moles/Vol] 3.7 mmol/L Normal 3.5-5.1 [facility] Comment on above: Order Comment: [facility] has implemented the eGFR calculation approach that does not have a coefficient for race that conforms to the NKF-ASN Task Force Recommendations. Performed By: #### 4 [id number] #### [facility] [address] [place], [place] [address] Tenisha Vizcarra M.D. [id number] Protein [Mass/Vol] 7.2 g/dL Normal 6.0-8.0 [facility] Comment on above: Order Comment: [facility] has implemented the eGFR calculation approach that does not have a coefficient for race that conforms to the NKF-ASN Task Force Recommendations. Performed By: #### 4 [id number] #### [facility] [address] [place], [place] [address] Tenisha Vizcarra M.D. [id number] Sodium [Moles/Vol] 137 mmol/L Normal 135-145 [facility] Comment on above: Order Comment: [facility] has implemented the eGFR calculation approach that does not have a coefficient for race that conforms to the NKF-ASN Task Force Recommendations. Performed By: #### 4 [id number] #### [facility] [address] [place], [place] [address] Tenisha Vizcarra M.D. [id number] Urea nitrogen [Mass/Vol] 12 mg/dL Normal 8-25 [facility] Comment on above: Order Comment: [facility] has implemented the eGFR calculation approach that does not have a coefficient for race that conforms to the NKF-ASN Task Force Recommendations. Performed By: #### 4 [id number] #### [facility] [address] [place], [place] [address] Tenisha Vizcarra M.D. [id number] Urea nitrogen/Creatinine [Mass ratio] 18.2 mg/mg Normal 10.0-20.0 [facility] Comment on above: Order Comment: [facility] has implemented the eGFR calculation approach that does not have a coefficient for race that conforms to the NKF-ASN Task Force Recommendations. Performed By: #### 4 [id number] #### [facility] [address] [place], [place] [address] Tenisha Vizcarra M.D. [id number] HEMOGLOBIN A1Con 10-17-2023 Glucose [Mass/Vol] 126 mg/dL High 74-114 [facility] Comment on above: Performed By: #### 4 8202 #### [facility] [address] [place], [place] [address] Tenisha Vizcarra M.D. [id number] HbA1c (Bld) [Mass fraction] 6.0 % High 4.2-5.6 [facility] Comment on above: Performed By: #### 4 8202 #### [facility] [address] [place], [place] [address] Tenisha Vizcarra M.D. [id number] LIPID PANELon 10-17-2023 Cholesterol [Mass/Vol] 150 mg/dL Normal 100-199 [facility] Comment on above: Performed By: #### 4 6087 #### [facility] [address] [place], [place] [address] Tenisha Vizcarra M.D. [id number] Cholesterol in HDL [Mass/Vol] 37 mg/dL Low 40-59 [facility] Comment on above: Performed By: #### 4 6087 #### [facility] [address] [place], [place] [address] Tenisha Vizcarra M.D. [id number] Cholesterol.total/Ch olesterol in HDL [Mass ratio] 4.1 {ratio} Normal [facility] Comment on above: Result Comment: Fema le Cholesterol/HDL Ratio: Average risk: 4.4 1/2 average risk: 3.3 2 x average risk: 7.1 Performed By: #### 4 6087 #### [facility] [address] [place], [place] [address] Tenisha Vizcarra M.D. [id number] LDL CHOLESTEROL CALCULATED 102 mg/dL Normal 10-130 [facility] Comment on above: Result Comment: Tisha onal Cholesterol Education Program Guidelines: LDL Cholesterol Optimal: <100 mg/dL Near Optimal/above Optimal: 100-129 mg/dL Borderline High: 130-159 mg/dL High: 160-189 mg/dL Very High: greater than or equal to 190 mg/dL Performed By: #### 4 [id number] #### [facility] [address] [place], [place] [address] Tenisha Vizcarra M.D. [id number] NON HDL CHOL 113 mg/dL Normal [facility] Comment on above: Result Comment: Tisha onal Cholesterol Education Program Guidelines: NON HDL Cholesterol Desirable: <130 mg/dL Borderline High: 130-159 mg/dL High: 160-189 mg/dL Very High: > or = 190 mg/dL Performed By: #### 4 [id number] #### [facility] [address] [place], [place] [address] Tenisha Vizcarra M.D. [id number] Triglyceride [Mass/Vol] 57 mg/dL Normal 30-150 [facility] Comment on above: Performed By: #### 4 [id number] #### [facility] [address] [place] [address] Tenisha Vizcarra M.D. [id number] US BREAST RIGHT LIMITEDon US BREAST RIGHT [...] FriOct 17, 2023 5:25:41 PM EDT Normal [facility] Comment on above: Order Comment: Flash coffey in [place]. Injury/Trauma or Illness?:Illness/Other How long have you had these symptoms (acute/chronic)?:Unknown Reason for exam?:mastitis Type of Exam?:Subsequent/Follow-up Additional signs and symptoms?:none MM FOLLOW UP POST CLIP PLACE MENTon 07-01-2023 MM FOLLOW UP POST CLIP PLACEMENT [...] results are concordant with the imaging findings. [employer] Workstation ID: [id number] Dictated by: CATRACHITO CUBA Transcribed by: DANIEL CALLAWAY on FriJul 01, 2023 9:21:59 AM EST Finalized by: CATRACHITO CUBA on FriJul 01, 2023 9:57:03 AM EST Normal [facility] US BREAST BIOPSY RIGHTon US BREAST BIOPSY [...] mammogram. Code ZW - Awaiting further pathology. [facility]/ Workstation ID: [id number] Addended: FriJul 03, 2023 9:22 AM by Catrachito Cuba MD ADDENDUM: Pathology - Right breast, 1 o'clock zone A, ultrasound-guided core biopsy: Actively inflamed duct compatible with mastitis. Pathology results are concordant with the imaging findings. [facility] Workstation ID: [id number] Dictated by: CATRACHITO CUBA on FriJul 01, 2023 8:44:54 AM EST Transcribed by: DANIEL CALLAWAY on FriJul 01, 2023 9:21:59 AM EST Finalized by: CATRACHITO CUBA on FriJul 01, 2023 9:57:03 AM EST Normal [facility] Comment on above: Order Comment: Injur y/Trauma [...] mammogram. Code ZW - Awaiting further pathology. [facility]/ Workstation ID: [id number] Addended: FriJul 03, 2023 9:22 AM by Catrachito Cuba MD ADDENDUM: Pathology - Right breast, 1 o'clock zone A, ultrasound-guided core biopsy: Actively inflamed duct compatible with mastitis. Pathology results are concordant with the imaging findings. [facility] Workstation ID: [id number] Dictated by: CATRACHITO CUBA on FriJul 01, 2023 8:44:54 AM EST Transcribed by: DANIEL CALLAWAY on FriJul 01, 2023 9:21:59 AM EST Finalized by: CATRACHITO CUBA on FriJul 01, 2023 9:57:03 AM EST Normal [facility] MR BREAST BILATERAL WITH AND WITHOUT CONTRASTon [...] Dotarem intravenously administered in a single dosage. [employer] utilized in the interpretation of this [...] FriJun 18, 2023 8:38:37 AM EST Normal [facility] Comment on above: Order Comment: Injur y/Trauma [...] sent to the patient regarding the results. [employer] Workstation ID: [id number] Dictated by: NAEL MCCRAY on FriApr 11, 2023 2:41:42 PM EST Transcribed by: LAVERNE JALLOH on FriApr 11, 2023 4:07:44 PM EST Finalized by: NAEL MCCRAY on FriApr 11, 2023 4:35:14 PM EST Normal [facility] US BREAST BILAT LIMITEDon US BREAST BILAT [...] sent to the patient regarding the results. [employer] Workstation ID: [id number] Dictated by: NAEL MCCRAY on FriApr 11, 2023 2:41:42 PM EST Transcribed by: LAVERNE JALLOH on FriApr 11, 2023 4:07:44 PM EST Finalized by: NAEL MCCRAY on FriApr 11, 2023 4:35:14 PM EST Normal [facility] Comment on above: Order Comment: Injur y/Trauma [...] [id number] Dictated by: LEE DEL TORO on [facility] Dec 09, 2020 2:40:07 AM EDT Transcribed by: LEE DEL TORO on [facility] Dec 09, 2020 2:40:07 AM EDT Finalized by: LEE DEL TORO on [facility] Dec 09, 2020 2:40:[address] [facility] Comment on above: Order Comment: Injur [...] 2. No biliary duct dilatation or gallstones. [employer] Workstation ID: [id number] Dictated by: BEBA FRANK on [facility] Dec 09, 2020 3:02:22 AM EDT Transcribed by: KWAKU JALLOH on [facility] Dec 09, 2020 5:26:22 AM EDT Finalized by: BEBA FRANK on [facility] Dec 09, 2020 6:43:[address] [facility] Comment on above: Order Comment: US Ga llbladder Injury/Trauma or Illness?:Illness/Other How long have you had these symptoms (acute/chronic)?:Acute Reason for exam?:ruq pain; nausea; vomiting History of cancer?:na Surgeries, chemotherapy, or radiation?:na Type of Exam?:Ongoing CT DATED TODAY Additional signs and symptoms?:NONE CT SPINE LUMBAR WITHOUT CONT Pepe 12-06-2019 CT SPINE LUMBAR WITHOUT CONTRAST EXAMINATION: [...] secondary to a diffuse disc bulge. Normal [facility] CT SPINE THORACIC WITHOUT CO NTRASTon [...] appear clear. IMPRESSION: No acute findings. Normal [facility] CT SPINE LUMBAR WITHOUT CONT RASTon 12-05-2019 IMPRESSION: 1. No acute fracture or dislocation of the lumbar spine is seen. 2. There is mild to moderate right and mild left neural foraminal narrowing at L4-L5 secondary to a diffuse disc bulge. [facility] EXAMINATION: CT SPIN E LUMBAR WITHOUT CONTRAST [...] to be any significant spinal canal stenosis. [employer] User, Interfaces - 12/05/2019 11:48 PM EDT [...] L4-L5 secondary to a diffuse disc bulge. [employer] CT SPINE THORACIC WITHOUT CO NTRASTon 12-05-2019 IMPRESSION: No acute findings. [employer] EXAMINATION: CT SPIN E THORACIC WITHOUT CONTRAST [...] Imaged portions of the lungs appear clear. [employer] User, Interfaces - 12/05/2019 11:39 PM EDT [...] appear clear. IMPRESSION IMPRESSION: No acute findings. [facility] CBCon 06-25-2019 ABSOLUTE BAS 0.1 10*3/uL Normal 0.0-0.2 [facility] Comment on above: Performed By: #### A CBC #### Testing performed at [address] [address] ABSOLUTE EOS 0.10 10*3/uL Normal 0.0-0.7 [facility] Comment on above: Performed By: #### A CBC #### Testing performed at [address] [place] [address] ABSOLUTE NEUTROPHIL COUNT 6.1 10*3/uL Normal 1.4-6.5 [facility] Comment on above: Performed By: #### A CBC #### Testing performed at [address] [place] [address] Basophils/100 WBC (Bld) 0.7 % Normal 0.0-2.0 [facility] Comment on above: Performed By: #### A CBC #### Testing performed at [address] [place] [address] DTYPE AUTO DIFF Normal [facility] Comment on above: Performed By: #### A CBC #### Testing performed at [address] [address] Eosinophils/100 WBC (Bld) 1.4 % Normal 0.0-11.0 [facility] Comment on above: Performed By: #### A CBC #### Testing performed at [address] [address] Lymphocytes (Bld) [#/Vol] 2.40 10*3/uL Normal 1.2-3.4 [facility] Comment on above: Performed By: #### A CBC #### Testing performed at [address] [address] Lymphocytes/100 WBC (Bld) 26.2 % Normal 20.0-55.0 [facility] Comment on above: Performed By: #### A CBC #### Testing performed at [address] [address] Monocytes (Bld) [#/Vol] 0.6 10*3/uL Normal 0.0-0.7 [facility] Comment on above: Performed By: #### A CBC #### Testing performed at [address] [address] Monocytes/100 WBC (Bld) 6.1 % Normal 0.0-10.0 [facility] Comment on above: Performed By: #### A CBC #### Testing performed at [address] [address] Neutrophils/100 WBC (Bld) 65.6 % Normal 37.0-75.0 [facility] Comment on above: Performed By: #### A CBC #### Testing performed at [address] [address] Erythrocyte distribution width (RBC) [Ratio] 15.5 % High 11.5-14.5 [facility] Comment on above: Performed By: #### A CBC #### Testing performed at [address] [address] Hematocrit (Bld) [Volume fraction] 41.4 % Normal 36.0-48.0 [facility] Comment on above: Performed By: #### A CBC #### Testing performed at [address] [address] Hemoglobin (Bld) [Mass/Vol] 14.1 g/dL Normal 12.0-16.0 [facility] Comment on above: Performed By: #### A CBC #### Testing performed at [address] [place] [address] MCH (RBC) [Entitic mass] 30.9 pg Normal 26.0-35.0 [facility] Comment on above: Performed By: #### A CBC #### Testing performed at [address] [address] MCHC (RBC) [Mass/Vol] 34.1 g/dL Normal 27.0-37.0 [facility] Comment on above: Performed By: #### A CBC #### Testing performed at [address] [address] MCV (RBC) [Entitic vol] 90.4 fL Normal 80.0-100.0 [facility] Comment on above: Performed By: #### A CBC #### Testing performed at [address] [address] Platelet mean volume (Bld) [Entitic vol] 8.2 fL Normal 7.4-11.0 [facility] Comment on above: Performed By: #### A CBC #### Testing performed at [address] [address] Platelets (Bld) [#/Vol] 350 10*3/uL Normal 130.0-400.0 [facility] Comment on above: Performed By: #### A CBC #### Testing performed at [address] [address] RBC (Bld) [#/Vol] 4.58 10*6/uL Normal 4.0-5.4 [facility] Comment on above: Performed By: #### A CBC #### Testing performed at [address] [address] WBC (Bld) [#/Vol] 9.3 10*3/uL Normal 3.6-11.0 [facility] Comment on above: Performed By: #### A CBC #### Testing performed at [address] [address] CBC, EDIF, PLATE[employer]Ton 2019 ABSOLUTE BASOPHIL COUNT 0.1 10*3/uL 0 - 0.2 10*3/uL [facility] Basophils/100 WBC (Bld) 0.7 % 0 - 2 % [facility] Differential cell count method Nom (Bld) AUTO DIFF % [facility] Eosinophils (Bld) [#/Vol] 0.10 10*3/uL 0 - 0.7 10*3/uL [facility] Eosinophils/100 WBC (Bld) 1.4 % 0 - 11 % [facility] Erythrocyte distribution width (RBC) [Ratio] 15.5 % High 11.5 - 14.5 % [facility] Hematocrit (Bld) [Volume fraction] 41.4 % 36 - 48 % [facility] Hemoglobin (Bld) [Mass/Vol] 14.1 g/dL [facility] Interpretation and review of laboratory results Abnormal [facility] Lymphocytes (Bld) [#/Vol] 2.40 10*3/uL 1.2 - 3.4 10*3/uL [facility] Lymphocytes/100 WBC (Bld) 26.2 % 20 - 55 % [facility] MCH (RBC) [Entitic mass] 30.9 pg 26 - 35 PG [facility] MCHC (RBC) [Mass/Vol] 34.1 g/dL [facility] MCV (RBC) [Entitic vol] 90.4 fL [facility] Monocytes (Bld) [#/Vol] 0.6 10*3/uL 0 - 0.7 10*3/uL [facility] Monocytes/100 WBC (Bld) 6.1 % 0 - 10 % [facility] Neutrophils (Bld) [#/Vol] 6.1 10*3/uL 1.4 - 6.5 10*3/uL [facility] Neutrophils/100 WBC (Bld) 65.6 % 37 - 75 % [facility] Platelet mean volume (Bld) [Entitic vol] 8.2 fL [facility] [employer] Platelets (Bld) [#/Vol] 350 10*3/uL 130 - 400 10*3/uL [facility] RBC (Bld) [#/Vol] 4.58 10*6/uL 4 - 5.4 10*6/uL [facility] WBC (Bld) [#/Vol] 9.3 10*3/uL 3.6 - 11 10*3/uL [facility] FA[facility] 06-25-2019 A:G RATIO 1.3 RATIO Normal 1.3-2.2 [facility] Comment on above: Performed By: #### A CBC #### Testing performed at [address] [address] Albumin [Mass/Vol] 4.5 G/dl Normal 3.5-5.0 [facility] Comment on above: Performed By: #### A CBC #### Testing performed at [address] [address] ALP [Catalytic activity/Vol] 76 U/L Normal 38-126 [facility] Comment on above: Performed By: #### A CBC #### Testing performed at [address] [address] ALT [Catalytic activity/Vol] 32 U/L Normal 9-52 [facility] Comment on above: Performed By: #### A CBC #### Testing performed at [address] [address] AST [Catalytic activity/Vol] 23 U/L Normal 14-36 [facility] Comment on above: Performed By: #### A CBC #### Testing performed at [address] [address] Bilirubin [Mass/Vol] 0.3 mg/dL Normal 0.2-1.3 [facility] [place] Comment on above: Performed By: #### A CBC #### Testing performed at [address] [place] [address] Calcium [Mass/Vol] 9.2 mg/dL Normal 8.4-10.2 [facility] Comment on above: Performed By: #### A CBC #### Testing performed at [address] [address] Chloride [Moles/Vol] 101 mmol/L Normal 98-107 [facility] [place] Comment on above: Result Comment: Plejassi berg note: Triglyceride levels of 600mg/dL or higher may positively bias chloride results by approximately 2.1 mmol Performed By: #### A CBC #### [place] [address] CO2 [Moles/Vol] 26 mmol/L Normal 22-30 [facility] Comment on above: Performed By: #### A CBC #### Testing performed at [place] [id number] Creatinine [Mass/Vol] 0.71 mg/dL Normal 0.7-1.2 [facility] Comment on above: Performed By: #### A CBC #### Testing performed at [place] [id number] EST. GFR, >60 Normal [facility] Comment on above: Performed By: #### A CBC #### Testing performed at [place] [id number] EST. GFR,Non >60 Normal [facility] Comment on above: Performed By: #### A CBC #### [place] [address] GFR/1.73 sq M predicted among non-blacks MDRD (S/P/Bld) [Vol rate/Area] Average GFR for 30-39 years old = 109. Normal [facility] Comment on above: Result Comment: Crime Prevention Worker rian Kidney disease, GFR = <60. Kidney failure, GFR = <15. The GFR estimate is not adjusted for extreme body surface area or acute process, nor has it been validated for women or ethnic groups other than and . Performed By: #### A CBC #### Testing performed at [place] [id number] Glucose [Mass/Vol] 74 mg/dL Normal 70-100 [facility] Comment on above: Result Comment: NORMAL <100 mg/dL PREDIABETES 101-126 mg/dL DIABETES 126 mg/dL or higher Performed By: #### A CBC #### Testing performed at [address] [address] Potassium [Moles/Vol] 4.0 mmol/L Normal 3.5-5.1 [facility] Comment on above: Performed By: #### A CBC #### Testing performed at [address] [address] Protein [Mass/Vol] 8.1 g/dL Normal 6.3-8.2 [facility] Comment on above: Performed By: #### A CBC #### Testing performed at [address] [address] Sodium [Moles/Vol] 138 mmol/L Normal 137-145 [facility] Comment on above: Performed By: #### A CBC #### Testing performed at [address] [address] Urea nitrogen [Mass/Vol] 17 mg/dL Normal 7-20 [facility] Comment on above: Performed By: #### A CBC #### Testing performed at [address] [address] COMPREHENSIVE METABOLIC PANE Chema 06-25-2019 Albumin [Mass/Vol] 4.5 G/dl 3.5 - 5 G/dl [facility] Albumin/Globulin [Mass ratio] 1.3 {ratio} [facility] ALP [Catalytic activity/Vol] 76 U/L [facility] ALT [Catalytic activity/Vol] 32 U/L [facility] AST [Catalytic activity/Vol] 23 U/L [facility] Bilirubin [Mass/Vol] 0.3 mg/dL [facility] Calcium [Mass/Vol] 9.2 mg/dL [facility] Chloride [Moles/Vol] 101 mmol/L [facility] Comment on above: Please note: Triglyc eride levels of 600mg/dL or higher may positively bias chloride results by approximately 2.1 mmol CO2 [Moles/Vol] 26 mmol/L [facility] Creatinine [Mass/Vol] 0.71 mg/dL [facility] GFR/1.73 sq M predicted among blacks MDRD (S/P/Bld) [Vol rate/Area] mL/min/{1.73_m2} ml/min/1.73sq. m [facility] GFR/1.73 sq M predicted among non-blacks MDRD (S/P/Bld) [Vol rate/Area] mL/min/{1.73_m2} ml/min/1.73sq. m [facility] GFR/1.73 sq M predicted among non-blacks MDRD (S/P/Bld) [Vol rate/Area] Average GFR for 30-39 years old = 109. [facility] Comment on above: Chronic Kidney disea se, GFR = <60. Kidney failure, GFR = <15. The GFR estimate is not adjusted for extreme body surface area or acute process, nor has it been validated for women or ethnic groups other than and . Glucose post fast [Mass/Vol] 74 mg/dL [facility] Comment on above: NORMAL <100 mg/dL PREDIABETES 101-126 mg/dL DIABETES 126 mg/dL or higher Potassium [Moles/Vol] 4.0 mmol/L [facility] Protein [Mass/Vol] 8.1 g/dL [facility] Sodium [Moles/Vol] 138 mmol/L [facility] Urea nitrogen [Mass/Vol] 17 mg/dL [facility] CBCon 01-19-2019 ABSOLUTE BAS 0.1 10*3/uL Normal 0.0-0.2 [facility] ABSOLUTE EOS 0.20 10*3/uL Normal 0.0-0.7 [facility] ABSOLUTE NEUTROPHIL COUNT 6.6 10*3/uL High 1.4-6.5 [facility] Basophils/100 WBC (Bld) 0.6 % Normal 0.0-2.0 [facility] DTYPE AUTO DIFF Normal [facility] Eosinophils/100 WBC (Bld) 1.6 % Normal 0.0-11.0 [facility] Lymphocytes (Bld) [#/Vol] 2.80 10*3/uL Normal 1.2-3.4 [facility] Lymphocytes/100 WBC (Bld) 27.1 % Normal 20.0-55.0 [facility] Monocytes (Bld) [#/Vol] 0.6 10*3/uL Normal 0.0-0.7 [facility] Monocytes/100 WBC (Bld) 5.9 % Normal 0.0-10.0 [facility] Neutrophils/100 WBC (Bld) 64.8 % Normal 37.0-75.0 [facility] Erythrocyte distribution width (RBC) [Ratio] 14.5 % Normal 11.5-14.5 [facility] Hematocrit (Bld) [Volume fraction] 41.6 % Normal 36.0-48.0 [facility] Hemoglobin (Bld) [Mass/Vol] 14.4 g/dL Normal 12.0-16.0 [facility] MCH (RBC) [Entitic mass] 31.2 pg Normal 26.0-35.0 [facility] MCHC (RBC) [Mass/Vol] 34.6 g/dL Normal 27.0-37.0 [facility] MCV (RBC) [Entitic vol] 90.1 fL Normal 80.0-100.0 [facility] Platelet mean volume (Bld) [Entitic vol] 8.3 fL Normal 7.4-11.0 [facility] Platelets (Bld) [#/Vol] 305 10*3/uL Normal 130.0-400.0 [facility] RBC (Bld) [#/Vol] 4.62 10*6/uL Normal 4.0-5.4 [facility] WBC (Bld) [#/Vol] 10.2 10*3/uL Normal 3.6-11.0 [facility] CMP FASTINGon 01-19-2019 A:G RATIO 1.1 RATIO Low 1.3-2.2 [facility] Albumin [Mass/Vol] 4.0 G/dl Normal 3.5-5.0 [facility] ALP [Catalytic activity/Vol] 83 U/L Normal 38-126 [facility] ALT [Catalytic activity/Vol] 30 U/L Normal 9-52 [facility] AST [Catalytic activity/Vol] 28 U/L Normal 14-36 [facility] Bilirubin [Mass/Vol] 0.4 mg/dL Normal 0.2-1.3 [facility] [place] Calcium [Mass/Vol] 9.4 mg/dL Normal 8.4-10.2 [facility] Chloride [Moles/Vol] 103 mmol/L Normal 98-107 [facility] [place] Comment on above: Result Comment: Ryan berg note: Triglyceride levels of 600mg/dL or higher may positively bias chloride results by approximately 2.1 mmol CO2 [Moles/Vol] 27 mmol/L Normal 22-30 [facility] Creatinine [Mass/Vol] 0.71 mg/dL Normal 0.7-1.2 [facility] EST. GFR, >60 Normal [facility] EST. GFR,Non >60 Normal [facility] GFR/1.73 sq M predicted among non-blacks MDRD (S/P/Bld) [Vol rate/Area] Average GFR for 30-39 years old = 109. Normal [facility] Comment on above: Result Comment: Crime Prevention Worker rian Kidney disease, GFR = <60. Kidney failure, GFR = <15. The GFR estimate is not adjusted for extreme body surface area or acute process, nor has it been validated for women or ethnic groups other than and . Glucose [Mass/Vol] 106 mg/dL High 70-100 [facility] Comment on above: Result Comment: NORMAL <100 mg/dL PREDIABETES 101-126 mg/dL DIABETES 126 mg/dL or higher Potassium [Moles/Vol] 3.7 mmol/L Normal 3.5-5.1 [facility] Protein [Mass/Vol] 7.6 g/dL Normal 6.3-8.2 [facility] Sodium [Moles/Vol] 139 mmol/L Normal 137-145 [facility] Urea nitrogen [Mass/Vol] 12 mg/dL Normal 7-20 [facility] LIPID PROFILEon 01-19-2019 Cholesterol [Mass/Vol] 149 mg/dL Normal 107-217 [facility] Cholesterol in HDL [Mass/Vol] 33 mg/dL Normal 33-75 [facility] Cholesterol in LDL [Mass/Vol] 106 mg/dL Normal [facility] Cholesterol in VLDL [Mass/Vol] 10 mg/dL Normal 5.0-25 [facility] Cholesterol.total/Ch olesterol in HDL [Mass ratio] 4.52 {ratio} Normal [facility] Comment on above: Result Comment: RISK TOTAL/HDL RATIO MEN WOMEN 1/2 AVERAGE 3.43 3.27 AVERAGE 4.97 4.44 2X AVERAGE 9.55 7.05 3X AVERAGE 23.99 11.04 Triglyceride [Mass/Vol] 50 mg/dL Normal 0-150 [facility] TSH,REFLEX FREE T4on 019 TSH,REFLEX FREE T4 2.420 uIU/ML Normal 0.46-4.68 [facility] [place] XR FOOT RIGHT 3+ VIEWS (ANA REID)on 10-13-2018 XR FOOT RIGHT 3+ VIEWS (STANDARD) [...] consideration. 3. No acute fracture or dislocation. [employer] Workstation ID: [id number] Dictated by: BRIT RIVERA on FriOct 13, 2018 11:33:21 AM EDT Transcribed by: ABDIRIZAK FERNANDEZ on FriOct 13, 2018 11:39:27 AM EDT Finalized by: BRIT RIVERA on FriOct 13, 2018 3:49:26 PM EDT Normal [facility] Comment on above: Order Comment: Injur y/Trauma or Illness?:Injury/Trauma How long have you had these symptoms (acute/chronic)?:Acute Reason for exam?:pain History of cancer?:na Surgeries, chemotherapy, or radiation?:na Type of Exam?:Initial Mechanism of injury?:running on treadmill Vital Signs Date Time Vital Sign Value Performing Clinician Facility 03-02-2024 10:41-0500 Body mass index (BMI) [Ratio] 55.02 kg/m2 Hawk Héctor DO Work Phone: [facility] 03-02-2024 10:41-0500 Body weight 136.44 kg Hawk Héctor DO Work Phone: [facility] 03-02-2024 10:41-0500 Diastolic blood pressure 76 mm[Hg] Hawk Héctor DO Work Phone: [facility] 03-02-2024 10:41-0500 Systolic blood pressure 118 mm[Hg] Hawk Héctor DO Work Phone: [facility] 01-12-2024 10:02-0400 Body height 157.5 cm Alyssa Oteroamadeo OCAMPO Work Phone: [facility] 01-12-2024 10:02-0400 Body mass index (BMI) [Ratio] 53.48 kg/m2 Alyssa Prakash DAMARIS Work Phone: [facility] 01-12-2024 10:02-0400 Body weight 132.63 kg Alyssa Prakash DAMARIS Work Phone: [facility] Comment on above: ACTUAL WEIGHT 08-19-2023 09:00-0400 Diastolic blood pressure 91 mm[Hg] Ariana Conniff PA-C Work Phone: [facility] 08-19-2023 09:00-0400 Systolic blood pressure 129 mm[Hg] Ariana Conniff PA-C Work Phone: [facility] 08-19-2023 08:38-0400 Body height 157.5 cm Ariana Conniff PA-C Work Phone: [facility] 08-19-2023 08:38-0400 Body mass index (BMI) [Ratio] 54.43 kg/m2 Ariana Conniff PA-C Work Phone: [facility] 08-19-2023 08:38-0400 Body weight 134.99 kg Ariana Conniff PA-C Work Phone: [facility] 08-19-2023 08:38-0400 Heart rate 86 /min Ariana Conniff PA-C Work Phone: [facility] 08-19-2023 08:38-0400 SaO2% (BldA) [Mass fraction] 97 % Ariana Conniff PA-C Work Phone: [facility] 05-14-2023 10:15-0500 Body height 157.5 cm Ashley Mcdaniel III, MD Work Phone: [facility] 05-14-2023 10:15-0500 Body mass index (BMI) [Ratio] 54.29 kg/m2 Ashley Mcdaniel III, MD Work Phone: [facility] 05-14-2023 10:15-0500 Body weight 134.63 kg Ashley Mcdaniel III, MD Work Phone: [facility] 05-14-2023 10:15-0500 Diastolic blood pressure 83 mm[Hg] Ashley Mcdaniel III, MD Work Phone: [facility] 05-14-2023 10:15-0500 Heart rate 95 /min Ashley Mcdaniel III, MD Work Phone: [facility] 05-14-2023 10:15-0500 SaO2% (BldA) [Mass fraction] 95 % Ashley Mcdaniel III, MD Work Phone: [facility] 05-14-2023 10:15-0500 Systolic blood pressure 139 mm[Hg] Ashley Mcdaniel III, MD Work Phone: [facility] 04-01-2023 10:01-0500 Diastolic blood pressure 90 mm[Hg] Ariana Conniff PA-C Work Phone: [facility] 04-01-2023 10:01-0500 Systolic blood pressure 128 mm[Hg] Ariana Conniff PA-C Work Phone: [facility] 04-01-2023 09:40-0500 Body height 157.5 cm Ariana Conniff PA-C Work Phone: [facility] 04-01-2023 09:40-0500 Body mass index (BMI) [Ratio] 53.96 kg/m2 Araina Conniff PA-C Work Phone: [facility] 04-01-2023 09:40-0500 Body weight 133.81 kg Ariana Conniff PA-C Work Phone: [facility] 04-01-2023 09:40-0500 Heart rate 96 /min Ariana Conniff PA-C Work Phone: [facility] 04-01-2023 09:40-0500 SaO2% (BldA) [Mass fraction] 94 % Ariana Conniff PA-C Work Phone: [facility] 01-23-2023 09:44-0400 Body height 157.5 cm Ariana Conniff PA-C Work Phone: [facility] 01-23-2023 09:44-0400 Body mass index (BMI) [Ratio] 53.41 kg/m2 Ariana Conniff PA-C Work Phone: [facility] 01-23-2023 09:44-0400 Body weight 132.45 kg Ariana Conniff PA-C Work Phone: [facility] 01-23-2023 09:44-0400 Diastolic blood pressure 88 mm[Hg] Ariana Conniff PA-C Work Phone: [facility] 01-23-2023 09:44-0400 Heart rate 91 /min Ariana Conniff PA-C Work Phone: [facility] 01-23-2023 09:44-0400 SaO2% (BldA) [Mass fraction] 98 % Ariana Conniff PA-C Work Phone: [facility] 09-28-2023 09:44-0400 Systolic blood pressure 120 mm[Hg] Ariana Conniff PA-C Work Phone: [facility] 09-04-2022 09:14-0400 Diastolic blood pressure 80 mm[Hg] Ariana Conniff PA-C Work Phone: [facility] 09-04-2022 09:14-0400 Systolic blood pressure 121 mm[Hg] Ariana Conniff PA-C Work Phone: [facility] 09-04-2022 08:56-0400 Body height 157.5 cm Ariana Conniff PA-C Work Phone: [facility] 09-04-2022 08:56-0400 Body mass index (BMI) [Ratio] 53.22 kg/m2 Ariana Conniff PA-C Work Phone: [facility] 09-04-2022 08:56-0400 Body weight 132 kg Ariana Conniff PA-C Work Phone: [facility] 09-04-2022 08:56-0400 Heart rate 88 /min Ariana Conniff PA-C Work Phone: [facility] 09-04-2022 08:56-0400 SaO2% (BldA) [Mass fraction] 96 % Ariana Conniff PA-C Work Phone: [facility] 05-28-2022 10:51-0500 Body height 157.5 cm Ariana Conniff PA-C Work Phone: [facility] 05-28-2022 10:51-0500 Body mass index (BMI) [Ratio] 52.86 kg/m2 Ariana Conniff PA-C Work Phone: [facility] 05-28-2022 10:51-0500 Body weight 131.09 kg Ariana Conniff PA-C Work Phone: [facility] 05-28-2022 10:51-0500 Diastolic blood pressure 69 mm[Hg] Ariana Conniff PA-C Work Phone: [facility] 05-28-2022 10:51-0500 Heart rate 92 /min Ariana Conniff PA-C Work Phone: [facility] 05-28-2022 10:51-0500 SaO2% (BldA) [Mass fraction] 95 % Ariana Conniff PA-C Work Phone: [facility] 05-28-2022 10:51-0500 Systolic blood pressure 139 mm[Hg] Ariana Conniff PA-C Work Phone: [facility] 03-05-2022 15:41-0500 Body height 157.5 cm Ariana Conniff PA-C Work Phone: [facility] 03-05-2022 15:41-0500 Body mass index (BMI) [Ratio] 54.69 kg/m2 Ariana Conniff PA-C Work Phone: [facility] 03-05-2022 15:41-0500 Body weight 135.63 kg Ariana Conniff PA-C Work Phone: [facility] 03-05-2022 15:41-0500 Diastolic blood pressure 89 mm[Hg] Ariana Conniff PA-C Work Phone: [facility] 03-05-2022 15:41-0500 Heart rate 83 /min Ariana Conniff PA-C Work Phone: [facility] 03-05-2022 15:41-0500 SaO2% (BldA) [Mass fraction] 96 % Ariana Conniff PA-C Work Phone: [facility] 03-05-2022 15:41-0500 Systolic blood pressure 132 mm[Hg] Ariana Conniff PA-C Work Phone: [facility] 02-05-2022 09:38-0400 Diastolic blood pressure 89 mm[Hg] Ariana Conniff PA-C Work Phone: [facility] 02-05-2022 09:38-0400 Systolic blood pressure 140 mm[Hg] Ariana Conniff PA-C Work Phone: [facility] 02-05-2022 08:42-0400 Body height 157.5 cm Ariana Conniff PA-C Work Phone: [facility] 02-05-2022 08:42-0400 Body mass index (BMI) [Ratio] 54.69 kg/m2 Ariana Conniff PA-C Work Phone: [facility] 02-05-2022 08:42-0400 Body weight 135.63 kg Ariana Conniff PA-C Work Phone: [facility] 02-05-2022 08:42-0400 Heart rate 100 /min Ariana Conniff PA-C Work Phone: [facility] 02-05-2022 08:42-0400 SaO2% (BldA) [Mass fraction] 96 % Ariana Conniff PA-C Work Phone: [facility] 10-01-2021 09:28-0400 Body height 157.5 cm Ashley Mcdaniel III, MD Work Phone: [facility] 10-01-2021 09:28-0400 Body mass index (BMI) [Ratio] 53.55 kg/m2 Ashley Mcdaniel III, MD Work Phone: [facility] 10-01-2021 09:28-0400 Body weight 132.81 kg Ashley Mcdaniel III, MD Work Phone: [facility] 10-01-2021 09:28-0400 Diastolic blood pressure 88 mm[Hg] Ashley Mcdaniel III, MD Work Phone: [facility] 10-01-2021 09:28-0400 Heart rate 87 /min Ashley Mcdaniel III, MD Work Phone: [facility] 10-01-2021 09:28-0400 SaO2% (BldA) [Mass fraction] 96 % Ashley Mcdaniel III, MD Work Phone: [facility] 10-01-2021 09:28-0400 Systolic blood pressure 128 mm[Hg] Ashley Mcdaniel III, MD Work Phone: [facility] 09-10-2021 11:02-0400 Body height 157.5 cm Priya Jorge CNP Work Phone: [facility] 09-10-2021 11:02-0400 Body mass index (BMI) [Ratio] 52.57 kg/m2 Priya Jorge CNP Work Phone: [facility] 09-10-2021 11:02-0400 Body weight 130.36 kg Priya Jorge CNP Work Phone: [facility] 09-10-2021 11:02-0400 Diastolic blood pressure 94 mm[Hg] Priya Jorge CNP Work Phone: [facility] 09-10-2021 11:02-0400 Heart rate 89 /min Priya Jorge CNP Work Phone: [facility] 09-10-2021 11:02-0400 Systolic blood pressure 139 mm[Hg] Priya Jorge CNP Work Phone: [facility] 08-04-2020 10:26-0400 BMI (Body Mass Index) 47.47 kg/m2 [facility] 08-04-2020 10:26-0400 Body Temperature 98.2 [degF] [facility] 08-04-2020 10:26-0400 Body weight 121.56 kg [facility] 08-04-2020 10:26-0400 BP Diastolic 87 mm[Hg] [facility] 08-04-2020 10:26-0400 BP Systolic 133 mm[Hg] [facility] 08-04-2020 10:26-0400 Height 160 cm [facility] 08-04-2020 10:26-0400 Pulse (Heart Rate) 79 /min [facility] 08-04-2020 10:26-0400 Pulse Oximetry 96 % [facility] 12-14-2019 09:32-0400 BMI (Body Mass Index) 49.19 kg/m2 [facility] 12-14-2019 09:32-0400 Body Temperature 98.1 [degF] [facility] 12-14-2019 09:32-0400 Body weight 134.08 kg [facility] 12-14-2019 09:32-0400 BP Diastolic 88 mm[Hg] [facility] 12-14-2019 09:32-0400 BP Systolic 130 mm[Hg] [facility] 12-14-2019 09:32-0400 Height 165.1 cm [facility] 12-14-2019 09:32-0400 Pulse (Heart Rate) 95 /min [facility] 12-14-2019 09:32-0400 Pulse Oximetry 96 % [facility] 12-07-2019 10:33-0400 BMI (Body Mass Index) 49.34 kg/m2 [facility] 12-07-2019 10:33-0400 Body Temperature 98.8 [degF] [facility] 12-07-2019 10:33-0400 Body weight 133.36 kg [facility] 12-07-2019 10:33-0400 BP Diastolic 74 mm[Hg] [facility] 12-07-2019 10:33-0400 BP Systolic 126 mm[Hg] [facility] 12-07-2019 10:33-0400 Height 164.4 cm [facility] 12-07-2019 10:33-0400 Pulse (Heart Rate) 84 /min [facility] 12-07-2019 10:33-0400 Pulse Oximetry 97 % [facility] 12-07-2019 10:33-0400 Respiratory Rate 14 /min [facility] 12-06-2019 00:21-0400 BP Diastolic 92 mm[Hg] [facility] 12-06-2019 00:21-0400 BP Systolic 138 mm[Hg] [facility] 12-06-2019 00:21-0400 Pulse (Heart Rate) 88 /min [facility] 12-06-2019 00:21-0400 Respiratory Rate 18 /min [facility] 12-05-2019 21:32-0400 Body Temperature 99.1 [degF] [facility] 12-05-2019 21:32-0400 Pulse Oximetry 97 % [facility] 06-25-2019 13:18-0500 BMI (Body Mass Index) 49.86 [...] 10-13-2018 11:26-0400 BP Diastolic 89 mm[Hg] Yasmin [facility] Comment on above: Rechecked [facility] 10-13-2018 11:26-0400 BP Systolic 142 mm[Hg] Yasmin [facility] Comment on above: Rechecked [facility] 10-13-2018 11:02-0400 BMI (Body Mass Index) 44.99 kg/m2 Yasmin [facility] 10-13-2018 11:02-0400 Body Temperature 98.29 [degF] Yasmin [facility] 10-13-2018 11:02-0400 Height 160 cm Yasmin [facility] 10-13-2018 11:02-0400 Pulse (Heart Rate) 84 /min Yasmin [facility] 10-13-2018 11:02-0400 Pulse Oximetry 98 % Yasmin [facility] 10-13-2018 11:02-0400 Respiratory Rate 18 /min Yasmin [facility] 10-13-2018 11:02-0400 Weight 115.21 kg Yasmin [facility] 03-18-2018 23:39-0500 BP Diastolic 77 mm[Hg] [facility] Work Phone: 03-18-2018 23:39-0500 BP Systolic 133 mm[Hg] [facility] Work Phone: 03-18-2018 23:39-0500 Pulse (Heart Rate) 85 /min [facility] Work Phone: 03-18-2018 23:39-0500 Pulse Oximetry 97 % [facility] Work Phone: 03-18-2018 23:39-0500 Respiratory Rate 18 /min [facility] Work Phone: 03-18-2018 22:16-0500 Height 157.5 cm [facility] Work Phone: 03-18-2018 22:14-0500 Body Temperature 98.01 [degF] [facility] Work Phone: Encounters Encounter Date Encounter Type Care Provider Facility Start: 03-24-2024 End: 03-24-2024 Clinisync Result Encounter Hawk Héctor DO Work Phone: [facility] External Department Unsolicited Start: 03-24-2024 End: 03-24-2024 Clinisync Result Encounter Hawk Héctor DO Work Phone: [facility] External Department Unsolicited Start: 03-02-2024 End: 03-02-2024 Bamboo flowsheet Hawk [...] examination done Hawk Héctor DO Work Phone: [facility] Start: 03-02-2024 End: 03-02-2024 ambulatory HAWK HÉCTOR Not Available Start: 02-13-2024 End: 02-13-2024 Clinisync Result Encounter Hawk Héctor DO Work Phone: [facility] External Department Unsolicited Start: 02-13-2024 End: 02-13-2024 Clinisync Result Encounter Hawk Héctor DO Work Phone: [facility] External Department Unsolicited Start: 02-13-2024 End: 02-13-2024 ambulatory Hawk Héctor [facility] Work Phone: Start: 02-13-2024 End: 02-13-2024 Departed Referred DO Hawk Héctor Work Phone: [facility] Start: 01-26-2024 End: 01-26-2024 ambulatory ALYSSA PRAKASH [facility] Start: 01-20-2024 End: 01-27-2024 Clinisync Result Encounter Hawk Héctor DO Work Phone: [facility] External Department Unsolicited Start: 01-20-2024 End: 01-27-2024 Clinisync Result Encounter Hawk Héctor DO Work Phone: [facility] External Department Unsolicited Start: 01-20-2024 End: 01-20-2024 ambulatory HAWK HÉCTOR Not Available Start: 01-12-2024 End: 01-12-2024 Office outpatient new 45 minutes Alyssa Lucilaqing Prakash TABLE ASSEMBLER Work Phone: [facility] Comment on above: Abscess of right ping ast (Primary Dx); Family history of breast cancer Start: 01-12-2024 End: 01-12-2024 [facility] Start: 12-31-2023 End: 12-31-2023 ambulatory Sasha Alcala Facility:[facility] Start: 12-30-2023 End: 12-30-2023 ambulatory HAWK ANAYA Not Available Start: 12-15-2023 End: 12-15-2023 ambulatory HAWK CHAUDHRYO Not Available Start: 11-27-2023 End: 11-27-2023 Office outpatient visit 10 minutes Tracy Alejandre MD Work Phone: [facility] Comment on above: Abscess of breast (P rimary Dx); Cellulitis of right breast Start: 11-27-2023 End: 11-27-2023 ambulatory ARIANA REYES [facility] Start: 11-06-2023 End: 11-06-2023 Office outpatient visit 15 minutes Tracy Alejandre MD Work Phone: [facility] Comment on above: Abscess of breast (P rimary Dx); Cellulitis of right breast Start: 11-06-2023 End: 11-06-2023 ambulatory ARIANA REYES [facility] Start: 10-22-2023 End: 10-22-2023 Office outpatient visit 15 minutes Ariana Garza PA-C Work Phone: [facility] Comment on above: Cellulitis of right breast (Primary Dx); History of lump of right breast; Abscess of breast Start: 10-22-2023 End: 10-26-2023 [facility] Start: 10-17-2023 End: 10-17-2023 ambulatory ARIANA [facility] Start: 10-17-2023 End: 10-21-2023 ambulatory ARIANA [facility] Start: 10-16-2023 End: 10-16-2023 Office outpatient visit 15 minutes Nicole Dean PA-C Work Phone: [facility] Comment on above: Cellulitis of right breast (Primary Dx); Mastitis Start: 10-16-2023 End: 10-16-2023 ambulatory NICOLE DEAN [facility] Start: 09-30-2023 End: 09-30-2023 Office outpatient new 30 minutes Tracy Alejandre MD Work Phone: [facility] Comment on above: Mastitis (Primary Dx ) Start: 09-30-2023 End: 09-30-2023 ambulatory TRACY ALEJANDRE II [facility] Start: 08-19-2023 End: 08-19-2023 Office outpatient visit 25 minutes Ariana Garza PA-C Work Phone: [facility] Primary [facility] Phys[facility] Comment on above: Current moderate epi sode of major depressive disorder without prior episode (HCC) (Primary Dx); Prediabetes; Mastitis Start: 08-19-2023 End: 08-19-2023 ambulatory ARIANA GARZA [facility] Start: 07-03-2023 Coordination of care plan Cheri Hammond RN Patient Navigator Start: 07-03-2023 Documentation procedure Shari Tay [facility] Phys[facility] General Surgery Comment on above: Results Start: 07-01-2023 Coordination of care plan Harper Gates RN Patient Navigator Start: 07-01-2023 End: 07-02-2023 ambulatory CATRACHITO WHYTE [facility] Start: 06-18-2023 End: 06-18-2023 Orders Only Ashley Mcdaniel MD Work Phone: [facility] General Surgery Start: 05-14-2023 End: 05-14-2023 Transcribe Orders Ashley Mcdaniel MD Work Phone: [facility] Comment on above: Family history of br east cancer (Primary Dx) Nipple discharge (Pr imary Dx); Family history of breast cancer in first degree relative Start: 05-14-2023 End: 05-14-2023 Office outpatient new 20 minutes Ashley Mcdaniel MD Work Phone: [facility] General Surgery Comment on above: Galactorrhea Start: 04-25-2023 End: 04-25-2023 ambulatory ARIANA LOPEZYN KAYLA [facility] Start: 04-11-2023 End: 04-11-2023 ambulatory ARIANA ERIC [facility] Start: 04-01-2023 End: 04-01-2023 Office outpatient visit 15 minutes Ariana Garza PA-C Work Phone: [facility] Comment on above: Discharge from right nipple (Primary Dx) Start: 04-01-2023 End: 04-05-2023 ambulatory ARIANA ERIC [facility] Start: 01-23-2023 End: 01-23-2023 Office outpatient visit 25 minutes Ariana Garza PA-C Work Phone: [facility] Phys[facility] Comment on above: Current moderate epi sode of major depressive disorder without prior episode (HCC) (Primary Dx); Prediabetes; Multiple joint complaints Start: 01-23-2023 End: 01-23-2023 ambulatory ARIANA LOPEZYN KAYLA [facility] Start: 09-04-2022 End: 09-04-2022 Office outpatient visit 15 minutes Ariana Garza PA-C Work Phone: [facility] Phys[facility] Comment on above: Prediabetes (Primary Dx); Current moderate episode of major depressive disorder without prior episode (HCC) Start: 05-28-2022 End: 05-28-2022 Office outpatient visit 15 minutes Ariana Garza PA-C Work Phone: [facility] Comment on above: Current moderate epi sode of major depressive disorder without prior episode (HCC) (Primary Dx); Overactive bladder Start: 03-05-2022 End: 03-05-2022 Office outpatient visit 15 minutes Ariana Garza PA-C Work Phone: [facility] Comment on above: Current moderate epi sode of major depressive disorder without prior episode (HCC) (Primary Dx); Needs flu shot Start: 02-05-2022 End: 02-05-2022 Office outpatient visit 15 minutes Ariana Garza PA-C Work Phone: [facility] Comment on above: Current moderate epi sode of major depressive disorder without prior episode (HCC) (Primary Dx) Start: 10-02-2021 Documentation procedure Shari Tay CMA [facility] Gen Surg Start: 10-01-2021 Coordination of care plan Elisha ross RN Patient Navigator Start: 10-01-2021 End: 10-01-2021 Office outpatient new 20 minutes Ashley Mcdaniel MD Work Phone: [facility] Comment on above: Abnormal mammogram o f right breast (Primary Dx) Start: 09-21-2021 Coordination of care plan Elisha ross RN Patient Navigator Comment on above: Mass of right breast , unspecified quadrant (Primary Dx) Start: 09-10-2021 End: 09-10-2021 Office outpatient new 30 minutes Priya Jorge TABLE ASSEMBLER Work Phone: [facility]stetric[facility]ne[facility] Comment on above: Suppurative hidraden itis (Primary Dx); Family history of breast cancer; Encounter for screening for malignant neoplasm of breast, unspecified screening modality Start: 04-29-2021 Orders Only Harper Cunningham rs TABLE ASSEMBLER Work Phone: [facility] [employer] Comment on above: Encntr for obs for s m[facility]p expsr to oth biolg agents ruled out (Primary Dx) Start: 12-09-2020 End: 12-09-2020 Emergency department patient visit ROXIEFENG HURSTME [facility] Start: 08-04-2020 End: 08-04-2020 Initial preventive medicine new pt age 18-39yrs Maikel Leal Work Phone: [facility] Comment on above: Well adult health ch tiarra (Primary Dx) Start: 01-05-2020 End: 01-05-2020 ambulatory PHYSICIAN NO [facility] Start: 12-14-2019 End: 12-14-2019 Office outpatient visit 15 minutes Lana Lombardi Work Phone: [facility] Comment on above: Essential hypertensi on (Primary Dx); Post-traumatic stress Start: 12-07-2019 End: 12-07-2019 Office outpatient visit 15 minutes Lana Harjit Work Phone: 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); Menorrhagia with regular cycle Start: 12-05-2019 End: 12-06-2019 Emergency department patient visit Surekha Quintanilla Work Phone: [facility] Start: 06-25-2019 End: 06-25-2019 Subsequent hospital visit by physician Lana Lombardi Work Phone: [facility] [employer] Comment on above: Arrived Start: 06-25-2019 End: 06-25-2019 Office outpatient visit 15 minutes Lana Harjit Work Phone: [facility] Comment on above: Essential hypertensi on (Primary Dx); Long Q-T syndrome; Tobacco use Start: 06-10-2019 End: 06-10-2019 Office outpatient visit 15 minutes Lana Harjit Work Phone: [facility] Comment on above: Post-traumatic stres s (Primary Dx) Start: 03-17-2019 End: 03-17-2019 Office outpatient visit 15 minutes Lana Harjit Work Phone: [facility] Comment on above: Post-traumatic stres s (Primary Dx) Start: 02-01-2019 End: 02-01-2019 Telephone encounter Mady Hunter [facility] Comment on above: Other Start: 01-25-2019 End: 01-25-2019 Office outpatient visit 15 minutes Lana Harjit Work Phone: [facility] Comment on above: Post-traumatic stres s (Primary Dx) Start: 01-21-2019 End: 01-21-2019 Telephone encounter Love Nelson [facility] Comment on above: Results Start: 01-19-2019 End: 01-19-2019 Letter encounter Lana Lombardi Work Phone: [facility] Start: 11-24-2018 End: 11-24-2018 Initial preventive medicine new pt age 18-39yrs Lana Lombardi Work Phone: [facility] Comment on above: Encounter for well w hortensia exam without gynecological exam (Primary Dx); Elevated TSH; BMI 45.0-49.9, adult Start: 10-13-2018 End: 10-17-2018 Patient encounter procedure YASMIN IZZY BROWN [facility] Start: 10-13-2018 End: 10-13-2018 Office outpatient new 20 minutes Yasmin Brown Work Phone: [facility] [place] Comment on above: Foot pain, right (Pr imary Dx); Elevated blood pressure reading; Tobacco use Start: 03-18-2018 End: 03-18-2018 Emergency department patient visit Tejinder Case Work Phone: [facility] Procedures Date Procedure Procedure Detail Performing Clinician Start: 03-24-2024 ALL CBC WITH AUTO DIFF Hawk Héctor DO Work Phone: Start: 02-13-2024 ALL CBC WITH AUTO DIFF Hawk Héctor DO Work Phone: Start: 01-20-2024 IGP,APTIMA HPV,AGE GDLN Hawk Héctor DO Work Phone: Start: 08-04-2020 Adult depression scr eening assessment Maikel Leal Start: 05-08-2020 Microscopic observat ion [Identifier] in Cervix by Cyto stain Maikel Leal Start: 12-05-2019 CT of thoracic spine Il lianna S [employer] Work Phone: Start: 12-05-2019 CT of lumbar spine Ilen e [employer] Work Phone: Start: 06-25-2019 Standard ECG Lana Melo janeth Work Phone: Start: 10-13-2018 X-ray of right foot Kesha Valles Stephanie Work Phone: Plan of Treatment Date Care Activity Detail Author Start: 03-05-2028 Pneumococcal Vaccine : Ped or At-Risk (1 - PCV) Pneumococcal Vaccine: Ped or At-Risk (1 - PCV) [facility] Comment on above: Postponed from 06/01 (Not Indicated) Start: 03-05-2028 Pneumococcal Vaccine : Ped or At-Risk (1 of 2 - PCV) Pneumococcal Vaccine: Ped or At-Risk (1 of 2 - PCV) [facility] Comment on above: Postponed from 06/01 (Not Indicated) Start: 01-24-2025 End: 01-24-2025 Patient encounter procedure 01/24/2025 1:00 PM EDT Office Visit [facility] [address] [facility] [place] [id number] Hawk Anaya DO [address], [facility] Start: 04-07-2024 End: 04-07-2024 Patient encounter procedure 04/07/2024 11:20 AM EST Office Visit [facility] [address] [place] [phone] Harper Rosales PA [address] [place], [facility] Start: 03-02-2024 End: 03-02-2024 Patient encounter procedure [facility] Comment on above: Arrived Start: 02-13-2024 [facility] Start: 02-13-2024 End: 02-13-2024 Patient encounter procedure 02/13/2024 9:00 AM EDT Procedure Visit [facility] Hawk Anaya, DO [address] [place] [address] [facility] Start: 01-26-2024 End: 01-26-2024 Patient encounter procedure 01/26/2024 10:45 AM EDT Office Visit [facility] [address] [place] [phone] Alyssa Prakash, TABLE ASSEMBLER [address] [place] [address] [facility] Start: 01-12-2024 End: 01-11-2025 Microbial culture, body fluid [facility] Work Phone: Comment on above: Expected: 01/12/2024 , Expires: 01/11/2025 Start: 12-28-2023 COVID-19 Vaccine () COVID-19 Vaccine () [facility] Start: 12-28-2023 Influenza vaccination [facility] Start: 12-18-2023 End: 12-18-2023 Patient encounter procedure 12/18/2023 8:40 AM EDT Office Visit [facility] Primary Care Physicians [address] [place] [phone] Ariana Garza PA-C [address] [place] [phone] [facility] Physicians Start: 11-27-2023 End: 11-27-2023 Patient encounter procedure 11/27/2023 11:00 AM EDT Office Visit [facility] Plastic Surgery [address] [place] [phone] Tracy Alejandre II, MD [address] [place] [phone] [facility] Plastic Surgery Start: 11-23-2023 Depression Remission Assessment (PHQ9) Depression Remission Assessment (PHQ9) [facility] Start: 11-13-2023 End: 11-13-2023 Patient encounter procedure 11/13/2023 2:15 PM EDT Office Visit [facility] Plastic Surgery [address] [place] [phone] Tracy Alejandre II, MD [address] [place] [phone] [facility] Plastic Surgery Start: 11-06-2023 End: 11-06-2023 Patient encounter procedure 11/06/2023 9:30 AM EDT Office Visit [facility] Plastic Surgery [address] [place] [address] Tracy Alejandre II, MD [address] [place] [address] [facility] Plastic Surgery Start: 10-17-2023 End: 10-17-2023 Patient encounter procedure 10/17/2023 12:45 PM EDT Appointment [facility] [address] [place] [address] [facility] Start: 08-05-2023 End: 08-05-2023 Patient encounter procedure 08/05/2023 11:00 AM EDT Office Visit [facility] Primary Care Physicians [address] [place] [address] Ariana Garza PA-C [address] [facility] [place] [address] [facility] Physicians Start: 07-07-2023 End: 07-07-2023 Patient encounter procedure 07/07/2023 8:00 AM EDT Office Visit [facility] Physician [facility] General Surgery [address] [place] [address] Ashley Mcdaniel III, MD [address] [place] [address] [facility] General Surgery Start: 07-01-2023 End: 07-01-2023 Patient encounter procedure [facility] Start: 05-08-2023 Screening for malign ant neoplasm of cervix [facility] Start: 04-25-2023 End: 04-25-2023 Patient encounter procedure 04/25/2023 11:00 AM EST Office Visit [facility] Primary Care Physicians [address] [place] [phone] Ariana Garza PA-C [address] [place] [address] [facility] Primary [facility] Physicians Start: 04-11-2023 End: 04-11-2023 Patient encounter procedure [facility] Mammography Start: 01-08-2023 End: 01-08-2023 Patient encounter procedure 01/08/2023 10:40 AM EDT Office Visit [facility] Primary Care Physicians [address] [place] [address] Ariana Garza PA-C [address] [place] [address] [facility] Start: 12-27-2022 COVID-19 Vaccine ( season) COVID-19 Vaccine ( season) [facility] Start: 12-27-2022 COVID-19 Vaccine ( season) COVID-19 Vaccine ( season) [facility] Start: 12-27-2022 Influenza vaccination Sequenti al Influenza Vaccine (#1) [facility] Start: 12-06-2022 Depression Remission Assessment (PHQ9) Depression Remission Assessment (PHQ9) [facility] Start: 08-20-2022 End: 08-20-2022 Patient encounter procedure 08/20/2022 Office Visit Primary Care Ariana Garza PA-C [address] [place] [address] [facility] Phys[facility] Start: 05-28-2022 End: 05-28-2022 Patient encounter procedure 05/28/2022 Office Visit Primary Care Ariana Garza PA-C [address] [place] [address] [facility] Phys[facility] Start: 03-05-2022 End: 03-05-2022 Patient encounter procedure 03/05/2022 Office Visit Primary Care Ariana Garza PA-C [address] [place] [address] [facility] Start: 12-27-2021 Influenza vaccination Sequenti al Influenza Vaccine (#1) [facility] Start: 10-01-2021 End: 10-01-2021 Patient encounter procedure 10/01/2021 Appointment Radiology Ashley Mcdaniel III, MD [address] [place] [address] [facility] Mamm[facility] Start: 10-01-2021 End: 10-01-2021 Patient encounter procedure [facility] Gen Surg Start: 09-11-2021 End: 09-11-2021 Patient encounter procedure 09/11/2021 Appointment Radiology Priya Jorge, DAMARIS [address] [place] [address] [facility] Start: 09-11-2021 COVID-19 Vaccine (3 - Booster for Moderna series) COVID-19 Vaccine (3 - Booster for Moderna series) [facility] Start: 08-04-2021 Adolescent depressio n screening assessment Depression Screening (PHQ9) [facility] Start: 08-04-2021 Depression screening using PHQ-9 (Patient Health Questionnaire 9) score Depression Screening (PHQ-2/9) [facility] Start: 08-04-2021 History and physical examination, annual for health maintenance Wellness Visit [facility] Start: 06-08-2021 COVID-19 Vaccine (3 - Booster for Moderna series) COVID-19 Vaccine (3 - Booster for Moderna series) [facility] Start: 06-08-2021 COVID-19 Vaccine (3 - Moderna series) COVID-19 Vaccine (3 - Moderna series) [facility] Start: 04-30-2021 End: 04-30-2021 Patient encounter procedure 04/30/2021 Office Visit Lab Harper Gabriel, TABLE ASSEMBLER [address] [address] [phone] (work) [facility] Start: 12-27-2020 Influenza vaccination Sequenti al Influenza Vaccine (#1) [facility] Start: 03-15-2020 End: 03-15-2020 Office Visit 03/15/2020 Office Visit Family Medicine Lana Lombardi APRN-TABLE ASSEMBLER [address] [place] [address] [facility] Start: 12-28-2019 Influenza vaccination INFLUENZA VACC INE (#1) [facility] Start: 12-28-2019 Influenza vaccinatio n given Sequential Influenza Vaccine (#1) [facility] Start: 12-14-2019 End: 12-14-2019 Office Visit 12/14/2019 Office Visit Family Medicine Lana Lombardi APRN-TABLE ASSEMBLER [address] [place] [address] [facility] Start: 07-12-2019 End: 07-12-2019 Office Visit 07/12/2019 Office Visit Family Medicine Lana Lombardi FLIGHT SOFTWARE TEST ENGINEER-TABLE ASSEMBLER [address] [place] [address] [facility] Start: 06-25-2019 End: 06-25-2020 Standard ECG ECG ECG Routine Essential hypertension Expected: 06/25/2019, Expires: 06/25/2020 [facility] Comment on above: Expected: 06/25/2019 , Expires: 06/25/2020 Start: 03-08-2019 End: 03-08-2019 Office Visit 03/08/2019 Office Visit Family Medicine Lana Lombardi FLIGHT SOFTWARE TEST ENGINEER-TABLE ASSEMBLER [address] [place] [address] [facility] Start: 01-25-2019 End: 01-25-2019 Office Visit 01/25/2019 Office Visit Family Medicine Lana Lombardi FLIGHT SOFTWARE TEST ENGINEER-TABLE ASSEMBLER [address] [place] [address] [facility] Start: 12-27-2018 Influenza vaccination INFLUENZA VACC INE (#1) [facility] Start: 12-27-2018 Influenza vaccinatio n given SEQUENTIAL INFLUENZA VACCINE (Season Ended) [facility] Start: 11-24-2018 End: 11-25-2019 CBC, EDIF, PLATELET CBC, EDIF, PLATELET Lab Routine Encounter for well woman exam without gynecological exam Expected: 11/24/2018, Expires: 11/25/2019 [facility] Comment on above: Expected: 11/24/2018 , Expires: 11/25/2019 Start: 11-24-2018 End: 11-25-2019 Comprehensive metabolic 2000 panel COMPREHENSIVE METABOLIC PANEL Lab Routine Encounter for well woman exam without gynecological exam Expected: 11/24/2018, Expires: 11/25/2019 [facility] Comment on above: Expected: 11/24/2018 , Expires: 11/25/2019 Start: 11-24-2018 End: 11-25-2019 LIPID PANEL W CALCULATED LDL LIPID PANEL W CALCULATED LDL Lab Routine Encounter for well woman exam without gynecological exam Expected: 11/24/2018, Expires: 11/25/2019 [facility] Comment on above: Expected: 11/24/2018 , Expires: 11/25/2019 Start: 11-24-2018 End: 11-25-2019 TSH W/FT4 REFLEX TSH W/FT4 REFLEX Lab Routine Encounter for well woman exam without gynecological exam Elevated TSH Expected: 11/24/2018, Expires: 11/25/2019 [facility] Comment on above: Expected: 11/24/2018 , Expires: 11/25/2019 Start: 12-27-2017 Influenza vaccination INFLUENZA VACC INE (#1) [facility] Work Phone: Start: 2016 Screening for malign ant neoplasm of cervix [facility] Start: 2007 Screening for malign ant neoplasm of cervix [facility] Work Phone: Start: 2005 Third diphtheria, te tanus and acellular pertussis (DTaP) vaccination TDAP (ADULT) [facility] Work Phone: Start: 2004 Hepatitis C antibody , confirmatory test Hepatitis C Screening [facility] Start: 2004 Hepatitis C screening Hepatitis C Sc reening [facility] Start: 2004 Tetanus vaccination TETANUS [facility] Work Phone: Start: 2002 COVID-19 Vaccine (1) COVID-19 Vaccin e (1) [facility] Start: 2001 HIV screening HIV Screening [facility] Start: 1999 HIV screening HIV SCREENING DISCUSSION [facility] Work Phone: Start: 1992 Pneumococcal Vaccine : Ped or At-Risk (1 - PCV) Pneumococcal Vaccine: Ped or At-Risk (1 - PCV) [facility] Start: 1992 Pneumococcal Vaccine : Ped or At-Risk (1 of 2 - PPSV23) Pneumococcal Vaccine: Ped or At-Risk (1 of 2 - PPSV23) [facility] Start: 1991 COVID-19 Vaccine (1) COVID-19 Vaccin e (1) [facility] Start: 1989 History and physical examination, annual for health maintenance Wellness Visit [facility] Start: 1986 Screening for malign ant neoplasm of cervix PAP SMEAR [facility] Start: 1986 Tetanus vaccination [facility] End: 09-05-2023 Complete blood count with white cell differential, manual CBC and Differential Lab Routine Prediabetes 1 Occurrences starting 09/04/2022 until 09/05/2023 [facility] Comment on above: 1 Occurrences starti ng 09/04/2022 until 09/05/2023 End: 08-19-2024 Complete blood count with white cell differential, manual CBC and Differential Lab Routine Prediabetes 1 Occurrences starting 08/19/2023 until 08/19/2024 [facility] Comment on above: 1 Occurrences starti ng 08/19/2023 until 08/19/2024 End: 09-05-2023 Comprehensive metabolic 2000 panel - Serum or Plasma Comprehensive Metabolic Panel Lab Routine Prediabetes 1 Occurrences starting 09/04/2022 until 09/05/2023 [facility] Comment on above: 1 Occurrences starti ng 09/04/2022 until 09/05/2023 End: 01-24-2024 Comprehensive metabolic 2000 panel - Serum or Plasma Comprehensive Metabolic Panel Lab Routine Prediabetes 1 Occurrences starting 01/23/2023 until 01/24/2024 [facility] Comment on above: 1 Occurrences starti ng 01/23/2023 until 01/24/2024 End: 08-19-2024 Comprehensive metabolic 2000 panel - Serum or Plasma Comprehensive Metabolic Panel Lab Routine Prediabetes 1 Occurrences starting 08/19/2023 until 08/19/2024 [facility] Comment on above: 1 Occurrences starti ng 08/19/2023 until 08/19/2024 End: 09-05-2023 Hemoglobin A1c/Hemoglobin.total in Blood Hemoglobin A1c Lab Routine Prediabetes 1 Occurrences starting 09/04/2022 until 09/05/2023 [facility] Work Phone: Comment on above: 1 Occurrences starti ng 09/04/2022 until 09/05/2023 End: 01-24-2024 Hemoglobin A1c/Hemoglobin.total in Blood Hemoglobin A1c Lab Routine Prediabetes 1 Occurrences starting 01/23/2023 until 01/24/2024 [facility] Work Phone: Comment on above: 1 Occurrences starti ng 01/23/2023 until 01/24/2024 End: 08-19-2024 Hemoglobin A1c/Hemoglobin.total in Blood Hemoglobin A1c Lab Routine Prediabetes 1 Occurrences starting 08/19/2023 until 08/19/2024 [facility] Work Phone: Comment on above: 1 Occurrences starti ng 08/19/2023 until 08/19/2024 INR Coag RelTime (Bld) XR Foot R ight 3+ Views (Standard) Imaging STAT Foot pain, right 10/13/2018 11:25 AM EDT [facility] End: 09-05-2023 Lipid 1996 panel - Serum or Plasma Lipid Panel Lab Routine Prediabetes 1 Occurrences starting 09/04/2022 until 09/05/2023 [facility] Comment on above: 1 Occurrences starti ng 09/04/2022 until 09/05/2023 End: 08-19-2024 Lipid 1996 panel - Serum or Plasma Lipid Panel Lab Routine Prediabetes 1 Occurrences starting 08/19/2023 until 08/19/2024 [facility] Comment on above: 1 Occurrences starti ng 08/19/2023 until 08/19/2024 End: 06-02-2024 MG Breast - bilateral Diagnostic Mammography Diagnostic Emile Bilateral Imaging Routine Discharge from right nipple 1 Occurrences starting 04/01/2023 until 06/02/2024 [facility] Comment on above: 1 Occurrences starti ng 04/01/2023 until 06/02/2024 End: 11-10-2022 MG Breast - bilateral Screening Mammography Screening Emile Bilateral Imaging Routine Encounter for screening for malignant neoplasm of breast, unspecified screening modality 1 Occurrences starting 09/10/2021 until 11/10/2022 [facility] Work Phone: Comment on above: 1 Occurrences starti ng 09/10/2021 until 11/10/2022 End: 05-14-2024 MR Breast - bilateral WO and W contrast IV MR Breast Bilateral With And Without Contrast Imaging Routine Nipple discharge Family history of breast cancer in first degree relative 1 Occurrences starting 05/14/2023 until 05/14/2024 [facility] Work Phone: Comment on above: 1 Occurrences starti ng 05/14/2023 until 05/14/2024 End: 06-18-2024 MR Guidance for biopsy of Breast - right MR Breast Core Biopsy Right Imaging Routine 1 Occurrences starting 06/18/2023 until 06/18/2024 [facility] Comment on above: 1 Occurrences starti ng 06/18/2023 until 06/18/2024 End: 04-01-2024 Prolactin [Mass/volume] in Serum or Plasma Prolactin Lab Routine Discharge from right nipple 1 Occurrences starting 04/01/2023 until 04/01/2024 [facility] Comment on above: 1 Occurrences starti ng 04/01/2023 until 04/01/2024 Prolactin [Mass/volu me] in Serum or Plasma Prolactin Lab Routine Discharge from right nipple 04/01/2023 10:25 AM EST [facility] End: 04-29-2022 SARS-CoV-2 (COVID-19) RNA [Presence] in Respiratory specimen by ALFREDO with probe detection COVID-19/Influenza A,B Molecular Microbiology Routine Encntr for obs for susp expsr to oth biolg agents ruled out 1 Occurrences starting 04/29/2021 until 04/29/2022 [facility] Work Phone: Comment on above: 1 Occurrences starti ng 04/29/2021 until 04/29/2022 End: 09-05-2023 Thyrotropin [Units/volume] in Serum or Plasma TSH Lab Routine Prediabetes 1 Occurrences starting 09/04/2022 until 09/05/2023 [facility] Comment on above: 1 Occurrences starti ng 09/04/2022 until 09/05/2023 End: 09-05-2023 Thyroxine (T4) free [Mass/volume] in Serum or Plasma T4, Free Lab Routine Prediabetes 1 Occurrences starting 09/04/2022 until 09/05/2023 [facility] Comment on above: 1 Occurrences starti ng 09/04/2022 until 09/05/2023 End: 09-21-2022 Ultrasonography guided biopsy of right breast US Breast Biopsy Right Imaging Routine Mass Of Right Breast, Unspecified Quadrant 1 Occurrences starting 09/21/2021 until 09/21/2022 [facility] Work Phone: Comment on above: 1 Occurrences starti ng 09/21/2021 until 09/21/2022 End: 04-01-2024 US Breast - right US Breast Right Complete Imaging Routine Discharge from right nipple 1 Occurrences starting 04/01/2023 until 04/01/2024 [facility] Work Phone: Comment on above: 1 Occurrences starti ng 04/01/2023 until 04/01/2024 End: 06-18-2024 US Breast - right US Breast Right Complete Imaging Routine 1 Occurrences starting 06/18/2023 until 06/18/2024 [facility] Work Phone: Comment on above: 1 Occurrences starti ng 06/18/2023 until 06/18/2024 End: 09-29-2024 US Breast - right US Breast Right Complete Imaging Routine Mastitis 1 Occurrences starting 09/30/2023 until 09/29/2024 [facility] Work Phone: Comment on above: 1 Occurrences starti ng 09/30/2023 until 09/29/2024 End: 06-18-2024 US Guidance for biopsy of Breast - right US Breast Biopsy Right Imaging Routine 1 Occurrences starting 06/18/2023 until 06/18/2024 [facility] Comment on above: 1 Occurrences starti ng 06/18/2023 until 06/18/2024 Immunizations Immunization Date Immunization Notes Care Provider Fa [facility] 03-05-2022 Seasonal, quadrivale nt, recombinant, injectable influenza vaccine, preservative free Ariana Garza PA-C Work Phone: [facility] 03-05-2022 flu vac qv 2021,18yr up,rcm-PF (FLUBLOK QUAD) syringe Ariana Garza PA-C Work Phone: [facility] 03-05-2022 influenza virus vaccine, unspecified formulation Ariana Garza PA-C Work Phone: [facility] 03-17-2019 influenza virus vaccine, unspecified formulation [facility] Payers Date Payer Category Payer Self-pay 2022 [facility] [id number] 2022 Unknown [id number] 2020 Unknown [facility] [employer] - PREFERRED [id number] 2020-Present [id number] 2020 Unknown [id number] 2020 Unknown [id number]. [id number] 2018 Private Health Insurance xxx [id number] [id number] 2018 Private Health Insurance [id number] 1986 Unknown [id number] 2.16.840.1.458777.3.579. 2.903 1986 Unknown [id number] 2.16.840.1.169326.3.579. 2.903 1986 Unknown [id number] 2.16.840.1.984356.3.579. 2.903 1986 Unknown [id number] 2.16.840.1.227479.3.579. 2.900 1986 Unknown [id number] 2.16.840.1.379985.3.579. 2.900 1986 Unknown [id number] 2.16.840.1.616371.3.579. 2.900 1986 Unknown [id number] 2.16.840.1.870113.3.579. 2.90 1986 Unknown [id number] 2.16.840.1.449444.3.579. 23 1986 Unknown [id number] 2.16840.1.891859.3.579. 2 1986 Unknown [id number] 2.16.840.1.633211.3.579. 2903 1986 Unknown [id number] 2.16.840.1.805914.3.579. 2 1986 Unknown [id number] 2.16.840.1.443079.3.579. 2.903 1986 Unknown [id number] 2.16.840.1.342581.3.579. 2. 1986 Unknown [id number] 2.16.840.1.050831.3.579. 2.903 1986 Unknown [id number] 2.16.840.1.639030.3.579. 2. 1986 Unknown [id number] 2.16.840.1.852152.3.579. 2.903 1986 Unknown [id number] 2.16.840.1.220125.3.579. 2 1986 Unknown [id number] 2.16.840.1.045804.3.579. 2.903 1986 Unknown [id number] 2.16.840.1.256175.3.579. 2. 1986 Unknown [id number] 2.16.840.1.078174.3.579. 2.3 1986 Unknown [id number] 2.16.840.1.584775.3.579. 2. 1986 Unknown [id number] 2.16.840.1.883440.3.579. 2. 1986 Unknown [id number] 2.16.840.1.871600.3.579. 2. 1986 Unknown [id number] 2.16.840.1.298607.3.579. 2. 1986 Unknown [id number] 2.16840.1.415549.3.579. 2.9 1985 Unknown [id number] 1985 Unknown [id number] 1985 Unknown [id number] Unknown [id number] Unknown [place]/BS [id number] Unknown [id number] Social History Date Type Detail Facility Start: 03-18-2018 End: 01-12-2024 Tobacco smoking status NHIS Current every day smoker [facility] Work Phone: Start: 03-18-2018 End: 04-01-2023 Cigarettes smoked current (pack per day) - Reported [facility] Start: 1985 Sex Assigned At Not on file [facility] Work Phone: History of tobacco use Cigarette Smoker [facility] Start: 10-13-2018 End: 02-05-2022 History SDOH Alcohol Frequency 1 [facility] Start: 01-31-2019 End: 04-01-2023 Alcohol intake No [facility] Start: 03-17-2019 End: 06-10-2019 Alcohol intake Current non-drinker of alcohol (finding) [facility] Start: 06-25-2019 End: 12-14-2019 Tobacco use and exposure Never used [facility] [employer] [facility] Start: 08-31-2021 End: 09-04-2022 Exposure to SARS-CoV-2 (event) Not sure [facility] Start: 12-14-2019 Tobacco Comment 10-15 cigarettes a day. [facility] [employer] [facility] [employer] Start: 08-04-2020 End: 01-12-2024 Tobacco use and exposure Former user [facility] End: 03-12-2020 History of tobacco use User of smokeless tobacco [facility] Start: 08-04-2020 End: 10-01-2021 Alcohol intake Lifetime non-drinker (finding) [facility] Start: 08-04-2020 End: 02-05-2022 History SDOH Social Connections Phone 5 [facility] Start: 08-04-2020 History SDOH Social Connections Get Together 4 [facility] Start: 08-04-2020 End: 02-05-2022 History SDOH Social Connections Membership 2 [facility] Start: 08-04-2020 History SDOH Social Connections Living 3 [facility] Start: 08-04-2020 History SDOH Physical Activity DPW 0 [facility] Start: 09-10-2021 End: 09-10-2022 Tobacco smoking status NHIS Ex-smoker [facility] Start: 02-23-2022 End: 01-12-2024 Alcohol intake Ex-drinker (finding) [facility] Start: 02-05-2022 Alcohol Comment rare [facility] Within the last year , have you been afraid of your partner or ex-partner? No [facility] Are you now , , , , never or living with a partner? [facility] How often to you hav e a drink containing alcohol? Never [facility] Average Number of Drinks Not [facility] Do you feel stress - tense, restless, nervous, or anxious, or unable to sleep at night because your mind is troubled all the time - these days [OSQ] Not at all [facility] (I/We) worried wheth er (my/our) food would run out before (I/we) got money to buy more. Never true [facility] Start: 05-08-2020 Gender identity Identifies as female gender (finding) [facility] Start: 05-08-2020 Sexual orientation Heterosexual (finding) [facility] History of tobacco use Current smoker [facility] How hard is it for y ou to pay for the very basics like food, housing, medical care, and heating Not very hard [facility] Tobacco smoking stat [facility] Tobacco smoking consumption unknown [facility] Start: 1985 Sex Assigned At Female [facility] Clinical Notes 04-29-2021 to 03-02-2024 Jennifer Siu - 03/02/2024 10:20 AM ESTPatient InstructionsAlyssa Prakash, DAMARIS - 01/12/2024 10:04 AM EDTTracy Alejandre II, MD - 11/27/2023 10:56 AM EDTPatient [...] on 03/31/[address] Anaya at [facility]. MEDICATIONS Current Outpatient Medications Medication Instructions [...] nursing note reviewed. Exam conducted with a cigar making machine supervisor present. Vitals: Estimated body mass index is [...] having a D&C Hysteroscopy performed at [facility] with Dr. Anaya on 02/13/2024. Pathology results was reviewed with the patient in great detail and all restrictions have been lifted. Pre Op: Patient is doing well but has complaints of pelvic pian. I have discussed conservative management vs. surgical management with the patient in detail and patient desires surgical management at this time. Patient will undergo [place] Debo assisted Laparoscopic Hysterectomy, possible exploratory laparotomy, possible BSO, possible cystoscopy on 03/31/2024. Surgical consents were signed, mmc was reviewed, and patient is to proceed to [facility]. Follow Up: Patient is to follow up at 1 & 6 weeks post operative to assess proper healing and recovery from procedure. Documented by Korina Randall LPN on behalf of: Hawk Anaya DO documented in this encounter [facility] 01-26-2024 Note TODAY'S DATE: 024 PATIENT: Lele [...] other drug use. 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 Ultrasound showed an isolated, [...] to clindamycin. She was seen by her multimedia services coordinator who cultured the nipple discharge on 12/22/2023 with results showing: Anaerobic: Bacteroides vulgatus, and Prevotella sp. Aerobic culture: staphylococcus epidermidis which was resistant to penicillins, clindamycin. This was suspectible to Bactrim and she was prescribed Bactrim x 7 days and Flagyl x 7 days. She recently finished these antibiotics. She was seen by Dr. Sasha Alcala ([place] [facility]) who referred her to our [...] 02/12 followed by a possible hysterectomy 03/30. 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 [facility] 01-12-2024 Instructions Alyssa Prakash CNP - 01/12/2024 12:52 PM EDT [place] Quit Line [email or web address] documented in this encounter [facility] 01-12-2024 Note TODAY'S DATE: 024 PATIENT: [...] other drug use. 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 Ultrasound showed an isolated, [...] to clindamycin. She was seen by her multimedia services coordinator who cultured the nipple discharge on 12/22/2023 with results showing: Anaerobic: Bacteroides vulgatus, and Prevotella sp. Aerobic culture: staphylococcus epidermidis which was resistant to penicillins, clindamycin. This was suspectible to Bactrim and she was prescribed Bactrim x 7 days and Flagyl x 7 days. She recently finished these antibiotics. She was seen by Dr. Sasha Alcala ([place] [facility]) who referred her to our [...] 02/12 followed by a possible hysterectomy 03/30. 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 [facility] 01-12-2024 History of Presen t [...] other drug use. 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 Ultrasound showed an isolated, [...] to clindamycin. She was seen by her multimedia services coordinator who cultured the nipple discharge on 12/22/2023 with results showing: Anaerobic: Bacteroides vulgatus, and Prevotella sp. Aerobic culture: staphylococcus epidermidis which was resistant to penicillins, clindamycin. This was suspectible to Bactrim and she was prescribed Bactrim x 7 days and Flagyl x 7 days. She recently finished these antibiotics. She was seen by Dr. Sasha Alcala ([place] [facility]) who referred her to our [...] 02/12 followed by a possible hysterectomy 03/30. 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 Previous Medications BLOOD-GLUCOSE SENSOR ([employer] ANDREW 3 SENSOR) MALIA For continuous glucose [...] conjunction with the immunization order to satisfy [place] Board of Pharmacy Positive ID requirements for [...] ACTUAL WEIGHT LMP 12/23/2023 BMI 53.48 kg/m Underwriting Intern: No Physical Exam Vitals reviewed. Constitutional: General: [...] She recently had culture completed through her multimedia services coordinator office of her purulent nipple discharge which [...] smoking cessation. I provided her with the [place] tobacco quit line information on her AVS. [...] minutes on this encounter today which includes chib-wz-[id number] time with the patient, time reviewing the chart, and time spent documenting the encounter. documented in this encounter [facility] 11-27-2023 Note Lele Leon present s for a persistent cyst in the right breast, treated with antibiotics. Since her last visit 3 weeks ago, the cyst has continued to decrease, from the size of a daily to a pea and is not tender. She completed antibiotic a week ago Plan - doing much better. Excision penitentiary is still a consideration. Follow up as needed. AUTHENTICATED BY TRACY ALEJANDRE II, ON 11/27/2023 12:56:45 [facility] 11-27-2023 History of Presen t illness Narrative Lele Leon presents for a persistent cyst in the right breast, treated with antibiotics. Since her last visit 3 weeks ago, the cyst has continued to decrease, from the size of a daily to a pea and is not tender. She completed antibiotic a week ago Plan - doing much better. Excision penitentiary is still a consideration. Follow up as needed. documented in this encounter [facility] 11-06-2023 Note Lele Leon present s for a persistent cyst in the right breast, treated with antibiotics. Since her last visit 2 weeks ago and taking clindamycin, the cyst has continued to decrease, from the size of a plum to a daily, and is also less tender. Plan is to taper clindamycin for 2 more weeks and recheck in 3 weeks. Excision penitentiary is still a consideration. AUTHENTICATED BY TRACY ALEJANDRE II, ON 11/06/2023 12:39:37 [facility] 11-06-2023 History of Presen t [...] weeks and recheck in 3 weeks. Excision watermelon harvesting supervisor is still a consideration. documented in this encounter [facility] 10-22-2023 Note Lele Leon present s [...] BY TRACY ALEJANDRE II, ON 10/22/2023 15:39:42 [facility] 10-22-2023 History of Presen t [...] reevaluate. documented in this encounter [facility] 10-16-2023 Note Lele Leon female 38 [...] AUTHENTICATED BY NICOLE DEAN, ON 10/17/2023 09:28:01 [facility] 10-16-2023 History of Presen t [...] PA-C documented in this encounter [facility] 10-16-2023 History of Presen t illness [...] PA-C documented in this encounter [facility] 09-30-2023 Note Lele Leon female 38 [...] BY TRACY ALEJANDRE II, ON 10/01/2023 12:29:19 [facility] 08-25-2023 Note .Subjective Patient ID: [...] If this im (more content not included)... [facility] 08-25-2023 History of Presen t [...] daily with breakfast . - blood-glucose sensor ([employer] Andrew 3 Sensor) Malia; For continuous glucose monitoring. Change every 14 days . - Hemoglobin A1c; Future - CBC and Differential; Future - Comprehensive Metabolic Panel; Future - Lipid Panel; Future Mastitis - doxycycline hyclate (VIBRA-TABS) 100 MG tablet; Take 1 (one) tablet (100 mg total) by mouth 2 (two) times a day . Note: This dictation was generated using Headroom voice recognition software. Please excuse any grammatical or spelling errors that may have occurred using the system. documented in this encounter [facility] 07-03-2023 History of Presen t illness Narrative Patient informed of negative right breast biopsy results. Patient also informed of the need for a repeat 6 month right breast mammogram and US. Recall placed in computer. documented in this encounter [facility] 07-03-2023 History of Presen t illness Narrative Called patient today for post biopsy call/check in. No answer, left VM for patient to return my call with any questions/concerns. Per chart, patient has viewed results in Mixbookt which reveal mastitis. Ordering provider to call patient with results. Benign path entered into breast care summary. Navigation will sign off at this time. Cheri MATTHEWS, RN General Oncology Nurse Navigator Breast Health Nurse Navigator [facility] [phone] documented in this encounter [facility] 07-01-2023 History of Presen t illness [...] condition. documented in this encounter [facility] 05-14-2023 History of Presen t illness [...] counseling. documented in this encounter [facility] 04-01-2023 Note Addended by: ARIANA GARZA on: 04/01/2023 10:45 AM Modules accepted: Orders [facility] 04-01-2023 Note Addended by: ARIANA GARZA on: 04/01/2023 10:45 AM Modules accepted: Orders [facility] 04-01-2023 Miscellaneous Notes Addended by: ARIANA GARZA on: 04/01/2023 10:45 AM Modules accepted: Orders documented in this encounter [facility] 04-01-2023 History of Presen t illness [...] Future Note: This dictation was generated using Headroom voice recognition software. Please excuse any grammatical or spelling errors that may have occurred using the system. documented in this encounter [facility] 01-28-2023 History of Presen t illness [...] . Note: This dictation was generated using Headroom voice recognition software. Please excuse any grammatical or spelling errors that may have occurred using the system. documented in this encounter [facility] 09-09-2022 History of Presen t illness [...] . Note: This dictation was generated using Headroom voice recognition software. Please excuse any grammatical or spelling errors that may have occurred using the system. documented in this encounter [facility] 05-28-2022 History of Presen t illness [...] . Note: This dictation was generated using Headroom voice recognition software. Please excuse any grammatical or spelling errors that may have occurred using the system. 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 Please excuse any grammatical or spelling errors that may have occurred using the system. documented in this encounter [facility] 02-05-2022 History of Presen t illness [...] . Note: This dictation was generated using Headroom voice recognition software. Please excuse any grammatical [...] difficult documented in this encounter [facility] 10-02-2021 History of Presen t illness Narrative Patient informed of negative right breast biopsy results. Patient also informed of the need for a repeat mammogram and ultrasound in 6 months. Recall placed in computer. documented in this encounter [facility] 10-01-2021 History of Presen t illness [...] condition. documented in this encounter [facility] 10-01-2021 Instructions Elisha Fuentes RN - [...] time. documented in this encounter [facility] 10-01-2021 History of Presen t illness [...] Tay. documented in this encounter [facility] 09-21-2021 History of Presen t illness Narrative Dr. Lim met with patient to discuss imaging results and recommendations. He is recommending surgical consult and Right ultrasound breast biopsy Explained Breast Health Nurse role in assisting patient scheduling, education, and support. Referral to Dr. Mcdaniel. Appointment scheduled with Dr. Mcdaniel on 10/01/21 at [facility]. Biopsy appointment scheduled on 10/01/21 at [facility]. Patient Accepted first available appointment offered for consultation and/or biopsy. Anticoagulants = None Allergies = ibuprofen, bee venom. After Visit Summary reviewed with patient to include appointment information, biopsy education and office contact information. All questions answered. documented in this encounter [facility] 09-21-2021 Instructions Elisha Fuentes RN - [...] must lie still during the procedure. The chemical inspector places warm gel on your breast and [...] time. 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 Self pay??-refer to [facility] if applicable- [phone] Order Specific Question: Reason for Exam: Answer: family history of breast cancer (mother) Order Specific Question: Is the patient ? Answer: No Order Specific Question: Release to patient Answer: Immediate No results found for this or any previous visit (from the past 336 hour(s)). Note: This dictation was generated using Headroom voice recognition software. Please excuse any grammatical [...] irritation. documented in this encounter [facility] 04-29-2021 History of Presen t illness Narrative Patient called [facility] with concern for COVID-19 and need for testing. [place]/ Department: [facility] ED Fever: no S/S : cough, sore throat, headache Known positive covid exposure?: no Per IDSA guidelines, testing is indicated. Suspect COVID, order placed. Patient aware this phone consult is for testing only. They will follow up with PCP/UC/ED for symptom management, if needed. documented in this encounter [facility] Evaluation note Diagnosis Encntr for obs for susp expsr to oth biolg agents ruled out- Primary [facility] Diagnosis Suppurative hidradenitis- Primary Hidradenitis Family history of breast cancer Family history of malignant neoplasm of breast Encounter for screening for malignant neoplasm of breast, unspecified screening modality [facility] Diagnosis Mass of right breast, unspecified quadrant- Primary [facility] Diagnosis Abnormal mammogram of right breast- Primary [facility] Diagnosis Current moderate episode of major depressive disorder without prior episode (HCC)- Primary [facility] Diagnosis Current moderate episode of major depressive disorder without prior episode (HCC)- Primary Needs flu shot Need for prophylactic vaccination and inoculation against influenza [facility] Diagnosis Current moderate episode of major depressive disorder without prior episode (HCC)- Primary Overactive bladder Hypertonicity of bladder [facility] Diagnosis Prediabetes- Primary Other abnormal glucose Current moderate episode of major depressive disorder without prior episode (HCC) [facility] Diagnosis Current moderate episode of major depressive disorder without prior episode (HCC)- Primary Prediabetes Other abnormal glucose Multiple joint complaints [facility] Diagnosis Discharge from right nipple- Primary [facility] Diagnosis Family history of breast cancer- Primary Family history of malignant neoplasm of breast [facility] Diagnosis Nipple discharge- Primary Other sign and symptom in breast Family history of breast cancer in first degree relative Family history of malignant neoplasm of breast [facility] Diagnosis 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 [facility] Diagnosis Current moderate episode of major depressive disorder without prior episode (HCC)- Primary Prediabetes Other abnormal glucose Mastitis Inflammatory disease of breast [facility] Diagnosis Mastitis- Primary Inflammatory disease of breast [facility] Diagnosis Cellulitis of right breast- Primary Mastitis Inflammatory disease of breast [facility] Diagnosis Cellulitis of right breast- Primary History of lump of right breast Abscess of breast Inflammatory disease of breast [facility] Diagnosis Abscess of breast- Primary Inflammatory disease of breast Cellulitis of right breast [facility]* Diagnosis Abscess of breast- Primary Inflammatory disease of breast Cellulitis of right breast documented [facility] encounter [facility]* Diagnosis Abscess of right breast- Primary Family history of breast cancer Family history of malignant neoplasm of breast documented [facility] encounter [facility]* Diagnosis Abscess of right breast- Primary Family history of breast cancer Family history of malignant neoplasm of breast documented in this encounter [facility] noteNo assessment information [facility] Work Phone: Evaluation note* Diagnosis Pre-op examination Menorrhagia with regular cycle Pelvic pain in female Unspecified symptom associated with female genital organs Dysmenorrhea Dyspareunia in female documented in this encounter [facility] HealthcareInstructions* Attachments The following attachments cannot be sent through Care Everywhere. * Hidradenitis Suppurativa (Cuban) documented in this encounter[facility]HealthInstructions* Attachments The following attachments cannot be sent through Care Everywhere. * Cervical: Exercises (Cuban) documented in this [facility]io[facility] Discharge Instructions * Tejinder Case MD - 03/18/2018 Continue to soak in warm water and dish soap, call Dr. Case symptoms worsens over the weekend, clindamycin 4 times daily as directed The following attachments cannot be sent through Care Everywhere. * Paronychia of the Finger or Toe (Cuban) in this encounter* Instructions* Surekha Quintanilla MD [...] Diagnoses Foot pain, right Conn, Yasmin Valles, TABLE ASSEMBLER [address] [place] [id number] Kalin Logan, DPM [address] [place] [id number] Status Reason Specialty Diagnoses / Procedures Re ferred By Contact Referred To Contact New Request Diagnoses Essential hypertension Procedures ECG Harjit, Lana, FLIGHT SOFTWARE TEST ENGINEER-TABLE ASSEMBLER [address] [id number] Status Reason Specialty Diagnoses / Procedures Referred By Contact Referred To Contact New Request PUBLISHING AGENT Diagnoses Menorrhagia with regular cycle Harjit, Lana, FLIGHT SOFTWARE TEST ENGINEER-TABLE ASSEMBLER [address] [id number] Susie Sheldon, DO [address] [place] [address] Status Reason Specialty Diagnoses / Procedures Referred By Contact Referred To Contact New Request Procedures ECG Harjit, Lana, FLIGHT SOFTWARE TEST ENGINEER-TABLE ASSEMBLER [address] [id number] Status Reason Specialty Diagnoses / Procedures Referred By Contact Referred To Contact Schedule Outgoing - Transfer of Care Psychiatry Diagnoses Post-traumatic stress Harjit, Lana, FLIGHT SOFTWARE TEST ENGINEER-TABLE ASSEMBLER [address] [id number] Specialty Diagnoses / Procedures Referred By Contac t Referred To Contact Radiology Diagnoses Encounter for screening for malignant neoplasm of breast, unspecified screening modality Procedures Mammography Screening Emile Bilateral Priya Jorge, TABLE ASSEMBLER [address] [place] [address] Referral ID Status Reason Start Date Expiration Date V isits Requested Visits Authorized [id number] Authorized 09/10/2021 09/10/2022 1 1 Specialty Diagnoses / Procedures Referred By Contac t Referred To Contact Radiology Diagnoses Mass of right breast, unspecified quadrant Procedures US Breast Biopsy Right Ashley Mcdaniel III, MD [address] [place] [address] Referral ID Status Reason Start Date Expiration Date V isits Requested Visits Authorized [id number] New Request 09/21/2021 09/21/2022 1 1 Specialty Diagnoses / Procedures Referred By Contac t Referred To Contact Radiology Diagnoses Discharge from right nipple Procedures Mammography Diagnostic Emile Bilateral Ariana Garza PA-C [address] [place] [address] Referral ID Status Reason Start Date Expiration Date V isits Requested Visits Authorized [id number] Authorized 04/01/2023 03/31/2024 1 1 Specialty Diagnoses / Procedures Referred By Contac t Referred To Contact Radiology Diagnoses Discharge from right nipple Procedures US Breast Right Complete Ariana Garza PA-C [address] [place] [address] Referral ID Status Reason Start Date Expiration Date V isits Requested Visits Authorized [id number] New Request 04/01/2023 03/31/2024 1 1 Specialty Diagnoses / Procedures Referred By Contac t Referred To Contact Genetics Diagnoses Family history of breast cancer Ashley Mcdaniel III, MD [address] [place] [address] [facility] [place] Referral ID Status Reason Start Date Expiration Date V isits Requested Visits Authorized [id number] Authorized 05/14/2023 05/13/2024 1 1 Specialty Diagnoses / Procedures Referred By Contac t Referred To Contact Radiology Diagnoses Nipple discharge Family history of breast cancer in first degree relative Procedures MR Breast Bilateral With And Without Contrast Ashley Mcdaniel III, MD [address] [place] [phone] Referral ID Status Reason Start Date Expiration Date V isits Requested Visits Authorized [id number] New Request 05/14/2023 05/13/2024 1 1 Specialty Diagnoses / Procedures Referred By Contac t Referred To Contact Radiology Procedures MR Breast Core Biopsy Right Ashley Mcdaniel III, MD [address] [place] [address] Referral ID Status Reason Start Date Expiration Date V isits Requested Visits Authorized [id number] Pending Review 06/18/2023 06/17/2024 1 1 Specialty Diagnoses / Procedures Referred By Contac t Referred To Contact Radiology Procedures US Breast Biopsy Right VenkateshAshley delcid III, MD [address] [place] [address] Referral ID Status Reason Start Date Expiration Date V isits Requested Visits Authorized [id number] Pending Review 06/18/2023 06/17/2024 1 1 Specialty Diagnoses / Procedures Referred By Contac t Referred To Contact Radiology Procedures US Breast Right Complete VenkateshAshley delcid III, MD [address] [place] [address] Referral ID Status Reason Start Date Expiration Date V isits Requested Visits Authorized [id number] New Request 06/18/2023 06/17/2024 1 1 Specialty Diagnoses / Procedures Referred By Contac t Referred To Contact Diagnoses PredAriana Vargas PA-C [address] [place] [phone] Referral ID Status Reason Start Date Expiration Date Visits Re quested Visits Authorized [id number] Closed 1 1 Specialty Diagnoses / Procedures Referred By Contac t Referred To Contact Radiology Diagnoses Mastitis Procedures US Breast Right Complete Kumpf, Tracy Livan II, MD [address] [place] [address] Referral ID Status Reason Start Date Expiration Date V isits Requested Visits Authorized [id number] New Request 09/30/2023 09/29/2024 1 1 Specialty Diagnoses / Procedures Referred By Kofi t Referred To Contact Genetics Diagnoses Family history of breast cancer Samy Alyssamagdalene Gaytan, TABLE ASSEMBLER [address] [place] [address] [facility] [place] Referral ID Status Reason Start Date Expiration Date V isits Requested Visits Authorized [id number] Authorized 01/12/2024 01/11/2025 1 1 Instructions * [...] your doctor if you can take an xvrp-swv-jovhasc medicine. Rest and protect your foot. Take [...] Log into your personal health record on [email or web address] and enter D999 in the Education box to learn more about Foot Pain: Care Instructions. Current as of: January 15, 2018 Content Version: 12.0 9794-2395 [employer]. Care instructions adapted under license by your healthcare professional. If you have questions about a medical condition or this instruction, always ask your healthcare professional. [employer] disclaims any warranty or liability for your [...] cushion your heel. You can buy these Ranch [employer] stores. Use them in both shoes, even [...] Log into your personal health record on [email or web address] and enter S299 in the Education box to learn more about Heel Pain: Care Instructions. Current as of: January 18, 2018 Content Version: 12.0 8969-0763 [employer]. Care instructions adapted under license by your healthcare professional. If you have questions about a medical condition or this instruction, always ask your healthcare professional. [employer] disclaims any warranty or liability for your use of this information. Follow up with the bogger operator. Ice, elevate and Tylenol. documented in this [...] may report side effects to FDA at 1-486-DNL-6437. What other drugs will affect losartan? Tell your doctor about all your other medicines, especially: a diuretic or water pill ; other blood pressure medications; lithium; or NSAIDs (nonsteroidal anti-inflammatory drugs) --aspirin, ibuprofen (Advil, Motrin), naproxen (Aleve), celecoxib, diclofenac, indomethacin, meloxicam, and others. This list is not complete. Other drugs may affect losartan, including prescription and exbb-cdc-ujfdeio medicines, vitamins, and herbal products. Not all [...] to ensure that the information provided by [employer]. ('Multum') is accurate, up-to-date, and complete, but no guarantee is made to that effect. Drug information contained herein may be time sensitive. [employer] information has been compiled for use by healthcare practitioners and consumers in the [place] and therefore [employer] does not warrant that uses outside of the [place] are appropriate, unless specifically indicated otherwise. [employer] drug information does not endorse drugs, diagnose patients or recommend therapy. [employer] drug information isan informational resource designed to [...] effective or appropriate for any given patient. [employer] does not assume any responsibility for any aspect of healthcare administered with the aid of information [employer] provides. The information contained herein is not intended to cover all possible uses, directions, precautions, warnings, drug interactions, allergic reactions, or adverse effects. If you have questions about the drugs you are taking, check with your doctor, nurse or pharmacist. Copyright 1005-7965 [employer]. Version: 16.01. Revision date: 08/05/2018. Care instructions adapted under license by your healthcare professional. If you have questions about a medical condition or this instruction, always ask your healthcare professional. [employer] disclaims any warranty or liability for your [...] of daily or weekly servings for a 2,541-tmczthy-j-day diet. You may need more or less [...] DASH, visit: National Heart, Lung, and Blood [place] at www.nhlbi.nih.gov/health/health-topics/topics/dash MedlinePlus at https://medlineplus.gov/dashdiet.html Adopt healthy [...] wedges, 1 tablespoon sunflower seeds, 1 teaspoon Faroese dressing 1 cup cantaloupe chunks cup fruit [...] cup raisins cup applesauce cup low-fat, low-sugar Gabonese yogurt 1 low-fat mozzarella string cheese 2017October 26, 2018, [facility]. This handout is for informational purposes only. Talk with your doctor or healthcare team if you have any questions about your care. For more health information, call the [employer] for [employer] Information at [phone] or email: [email or web address]-[email or web address]. documented in this encounter* Patient [...] Where can you learn more? Go to http://www.ParQnow.Voalteu.edu/patiented. Enter H967 in the search box to learn more about 'DASH Diet: Care Instructions.' Interested in seeing a video go to https://ParQnow.Voalte.edu/videolibrary to see all video content. Current as of: April 12, 2019 Content Version: 12.5 [employer]. Care instructions adapted under license by your healthcare professional. If you have questions about a medical condition or this instruction, always ask your healthcare professional. [employer] disclaims any warranty or liability for your use of this information. documented in this encounter* Patient Instructions* Lana Lombardi APRN-CNP - 01/25/2019 1:00 PM EDT [address] [place] [address] [place] [address] or [phone] A script for PAXIL has been sent to your paroxetine Pronunciation: maxim GARCIA a teen Brand: Sedny Waddell, Sendy DAVENPORT, Anupama What is the [...] may report side effects to FDA at 3-333-WQN-8811. What other drugs will affect paroxetine? Taking [...] may interact with paroxetine, including prescription and zpwa-dmj-hezflgz medicines, vitamins, and herbal products. Not all [...] to ensure that the information provided by [employer]. ('Multum') is accurate, up-to-date, and complete, but no guarantee is made to that effect. Drug information contained herein may be time sensitive. [employer] information has been compiled for use by healthcare practitioners and consumers in the [place] and therefore [employer] does not warrant that uses outside of the [place] are appropriate, unless specifically indicated otherwise. Like[employer] drug information does not endorse drugs, diagnose patients or recommend therapy. [employer] drug information isan informational resource designed to [...] effective or appropriate for any given patient. [employer] does not assume any responsibility for any aspect of healthcare administered with the aid of information [employer] provides. The information contained herein is not intended to cover all possible uses, directions, precautions, warnings, drug interactions, allergic reactions, or adverse effects. If you have questions about the drugs you are taking, check with your doctor, nurse or pharmacist. Copyright 1590-3674 [employer]. Version: 26.01. Revision date: 09/02/2016. Care instructions adapted under license by your healthcare professional. If you have questions about a medical condition or this instruction, always ask your healthcare professional. [employer] disclaims any warranty or liability for your [...] may report side effects to FDA at 3-939-SFW-5385. What other drugs will affect buspirone? Taking this medicine with other drugs that make you sleepy or slow your breathing can worsen these effects. Ask your doctor before taking buspirone with a sleeping pill, narcotic pain medicine, muscle relaxer, or medicine for anxiety, depression, or seizures. Other drugs may interact with buspirone, including prescription and wtaq-gcj-hlnchvw medicines, vitamins, and herbal products. Tell each [...] to ensure that the information provided by [employer]. ('Multum') is accurate, up-to-date, and complete, but no guarantee is made to that effect. Drug information contained herein may be time sensitive. [employer] information has been compiled for use by healthcare practitioners and consumers in the [place] and therefore [employer] does not warrant that uses outside of the [place] are appropriate, unless specifically indicated otherwise. [employer]'s drug information does not endorse drugs, diagnose patients or recommend therapy. [employer]ineSense Techn[employer]ess drug information isan informational resource designed to [...] effective or appropriate for any given patient. [facility] does not assume any responsibility for any aspect of healthcare administered with the aid of information [facility] provides. The information contained herein is not intended to cover all possible uses, directions, precautions, warnings, drug interactions, allergic reactions, or adverse effects. If you have questions about the drugs you are taking, check with your doctor, nurse or pharmacist. Copyright 4735-0577 [employer]. Version: 5.01. Revision date: 04/10/2015. Care instructions adapted under license by your healthcare professional. If you have questions about a medical condition or this instruction, always ask your healthcare professional. [employer] disclaims any warranty or liability for your [...] 11:13 AM EDT PATIENT NAME: Lele Dacosta [facility] [address] [place] [id number] : 1985 DATE OF VISIT: 10/13/2018 #: [...] file Gets together: Not on file Attends pentecostalism service: Not on file Active member of [...] take OTC supplements/vitamins. 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 Offered referral to panel edge painter. Pt declined at this time. 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 Going to counseling at [facility] in [place]. She has previously tried Zoloft and Lexapro. [...] times daily as needed. 60 tablet 1 zhdnwfko-lmbrjsyfi-wlcygydeoaudz 3.5-20697-7.[address] 1 drop in both eyes [...] Lele presents after having been seen at [facility] ER on 8/9/20. States pain seemed to start around the same time as her period. 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 - AMB REFERRAL TO OB-FOURDRINIER OPERATOR Other orders - cyclobenzaprine 10 MG tablet; [...] Reports normal stress. Previously seeing counselor at [facility] in [place] but cannot afford it at $140/hr. Elevated [...] recommended. Online referral has been [facility] in [place]. Pt does not want to be seen in [place]. Online referral made for her , as [...] is going to counseling[facility] in [place], as recommended at her last appointment. She [...] her two small children with her today. Mayes, appropriate interaction between mother and children. ICD-10-CM [...] PTSD. She is going to counseling at [facility] in [place]. On paroxetine. 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 Social Needs Financial resource strain: Not hard [...] Gets together: Three times a week Attends pentecostalism service: Never Active member of club or [...] Documents on File Type Date Recorded Patient Cap Sewer Expl anation Advance Directives and Living Will Documents on File Type Date Recorded Patient Cap Sewer Expl anation Advance Directives and Living Will Documents on File Type Date Recorded Patient Cap Sewer Expl anation Advance Directives and Livin g [...] Establish Care Was with Dr Brennan in [facility]- seen him once- but is hanging because she works in [place] now.Was seeing a counselor but they decided [...] Surgery Diagnoses Galactorrhea Ariana Garza PA-C [address] [place] [address] Ashley Mcdaniel III, MD [address] [place] [address] Referral ID Status Reason Start Date Expiration Date Visits Re quested Visits Authorized [id number] Closed 04/25/2023 04/24/2024 1 1 Reason Onset Date Comments Results 07/03/2023 Reason Comments Follow-up No issues Specialty Diagnoses / Procedures Referred By Kofi beltran Referred To Contact Plastic Surgery Diagnoses History of lump of right breast Ariana Garza PA-C [address] [place] [address] Tracy Alejandre II, MD [address] [place] [address] Referral ID Status Reason Start Date Expiration Date Visits Re quested Visits Authorized [id number] Closed 09/24/2023 09/23/2024 1 1 Reason Comments Initial Visit (Intake) Right nipple Disc harge.[facility] [facility] INFORMATION SOURCE (unrecogn ized section and content) DATE CREATED AUTHOR 10/17/2018 [facility] DATE CREATED AUTHOR AUTHOR'S ORGANIZ ATION 12/25/2019 [facility] DATE CREATED AUTHOR AUTHOR'S ORGANIZ ATION 12/15/2020 [facility] DATE CREATED AUTHOR AUTHOR'S ORGANIZ ATION 07/31/2023 [facility] DATE CREATED AUTHOR AUTHOR'S ORGANIZ ATION 11/12/2023 [facility] DATE CREATED AUTHOR AUTHOR'S ORGANIZ ATION 11/29/2023 [facility] DATE CREATED AUTHOR AUTHOR'S ORGANIZ ATION 01/15/2024 [facility] DATE CREATED AUTHOR AUTHOR'S ORGANIZ ATION 01/27/2024 [facility] latory DATE CREATED AUTHOR AUTHOR'S ORGANIZ ATION 02/22/2024 [facility] DATE CREATED AUTHOR AUTHOR'S ORGANIZ ATION 03/03/2024 [facility] dical Specialists Surekha Gary MD - [...] file Gets together: Not on file Attends pentecostalism service: Not on file Active member of [...] Care Teams (unrecognized sec tion and content) Flow Floor Attendant Relationship Specialty Start Date End Date Maikel Leal MD [address] [place] [address] PCP - General Family Medicine 08/04/20 Love Jimenez, TABLE ASSEMBLER [address] [facility] [place] [address] PCP - JASBIR Attributed Provider - [facility] 01/27/20 04/27/50 Flow Floor Attendant Relationship Specialty Start Date End Date Maikel Leal MD [address] [place] [address] PCP - General Family Medicine 08/04/20 Love Jimenez, TABLE ASSEMBLER [address] [facility] [place] [address] PCP - JASBIR Attributed Provider - [facility] 01/27/20 04/27/50 Flow Floor Attendant Relationship Specialty Start Date End Date Maikel Leal MD [address] [place] [address] PCP - General Family Medicine 08/04/20 Love Jimenez, TABLE ASSEMBLER [address] [place] [address] PCP - JASBIR Attributed Provider - [facility] 01/27/20 04/27/50 Fuentes, Elisha R, RN Patient Navigator Nursing 09/21/21 Flow Floor Attendant Relationship Specialty Start Date End Date Maikel Leal MD [address] [place] [address] PCP - General Family Medicine 08/04/20 Love Jimenez, DAMARIS [address] [place] [address] PCP - JASBIR Attributed Provider - [facility] 01/27/20 04/27/50 Elisha Fuentes RN Patient Navigator Nursing 09/21/21 Flow Floor Attendant Relationship Specialty Start Date End Date Maikel Leal MD [address] [place] [address] PCP - General Family Medicine 08/04/20 Love Jimenez, DAMARIS [address] [place] [address] PCP - JASBIR Attributed Provider - [facility] 01/27/20 04/27/50 Elisha Fuentes RN Patient Navigator Nursing 09/21/21 Flow Floor Attendant Relationship Specialty Start Date End Date Maikel Leal MD [address] [place] [address] PCP - General Family Medicine 08/04/20 Love Jimenez, TABLE ASSEMBLER [address] [place] [address] PCP - JASBIR Attributed Provider - [facility] 01/27/20 04/27/50 Flow Floor Attendant Relationship Specialty Start Date End Date Love Jimenez CNP [address] [place] [address] PCP - JASBIR Attributed Provider - [facility] 01/27/20 04/27/50 Love Jimenez CNP [address] [place] [address] PCP - JASBIR Attributed Provider - [facility] 01/27/20 04/27/50 Ariana Garza PA-C [address] [place] [address] PCP - General Physician Loan Documents Closer 02/05/22 Flow Floor Attendant Relationship Specialty Start Date End Date Love Jimenez, TABLE ASSEMBLER [address] [place] [address] PCP - JASBIR Attributed Provider - [facility] 01/27/20 04/27/50 Love Jimenez, TABLE ASSEMBLER [address] [place] [address] PCP - JASBIR Attributed Provider - [place] 01/27/20 04/27/50 Ariana Garza PA-C [address] [place] [address] PCP - General Physician Loan Documents Closer 02/05/22 Flow Floor Attendant Relationship Specialty Start Date End Date Ariana Garza PA-C [address] [place] [address] PCP - General Physician Loan Documents Closer 02/05/22 Flow Floor Attendant Relationship Specialty Start Date End Date Ariana Garza PA-C [address] [place] [address] PCP - General Physician Loan Documents Closer 02/05/22 Flow Floor Attendant Relationship Specialty Start Date End Date Ariana Garza PA-C [address] [place] [address] PCP - General Physician Loan Documents Closer 02/05/22 Flow Floor Attendant Relationship Specialty Start Date End Date Ariana Garza PA-C [address] [place] [address] PCP - General Physician Loan Documents Closer 02/05/22 Flow Floor Attendant Relationship Specialty Start Date End Date Ariana Garza PA-C [address] [place] [address] PCP - General Physician Loan Documents Closer 02/05/22 Flow Floor Attendant Relationship Specialty Start Date End Date Ariana Garza PA-C [address] [place] [address] PCP - General Physician Loan Documents Closer 02/05/22 Flow Floor Attendant Relationship Specialty Start Date End Date Ariana Garza PA-C [address] [place] [address] PCP - General Physician Loan Documents Closer 02/05/22 Flow Floor Attendant Relationship Specialty Start Date End Date Ariana Garza PA-C [address] [place] [address] PCP - General Physician Loan Documents Closer 02/05/22 Klaudia Marley, RN Registered Nurse Nursing 06/18/23 Flow Floor Attendant Relationship Specialty Start Date End Date Ariana Garza PA-C [address] [place] [address] PCP - General Physician Loan Documents Closer 02/05/22 Klaudia Marley, RN Registered Nurse Nursing 06/18/23 Flow Floor Attendant Relationship Specialty Start Date End Date Ariana Garza PA-C [address] [place] [address] PCP - General Physician Loan Documents Closer 02/05/22 Flow Floor Attendant Relationship Specialty Start Date End Date Ariana Garza PA-C [facility] [place] [address] PCP - General Physician Loan Documents Closer 02/05/22 Flow Floor Attendant Relationship Specialty Start Date End Date Ariana Garza PA-C [address] [place], [place] [id number] [place] [address] PCP - General Physician Loan Documents Closer 02/05/22 Flow Floor Attendant Relationship Specialty Start Date End Date Love Jimenez CNP [address], [facility]20 PCP - JASBIR Attributed Provider - [facility] 01/27/20 04/27/50 Ariana Garza PA-C [address] [place], [place] [address] [address] PCP - General Physician Loan Documents Closer 02/05/22 Flow Floor Attendant Relationship Specialty Start Date End Date Love Jimenez CNP [address] [place] [address] PCP - JASBIR Attributed Provider - [facility] 01/27/20 04/27/50 Ariana Garza PA-C [address] [place] [address] [place] [address] PCP - General Physician Loan Documents Closer 02/05/22 Flow Floor Attendant Relationship Specialty Start Date End Date Love Jimenez CNP [address]iz, [facility]20 PCP - JASBIR Attributed Provider - [facility] 01/27/20 04/27/50 Ariana Garza PA-C [address] [place] [address] PCP - General Physician Loan Documents Closer 02/05/22 Flow Floor Attendant Relationship Specialty Start Date End Date Hawk Anaya DO [address] [place] [address] Consulting Physician Obstetrics/Gynecology 01/12/24 Alyssa Prakash, DAMARIS [address] [facility] [address] [place] [address] Nurse Practitioner 01/12/24 Flow Floor Attendant Relationship Specialty Start Date End Date Hawk Anaya DO [address] [place] [address] Consulting Physician Obstetrics/Gynecology 01/12/24 Alyssa Prakash, DAMARIS [address] [facility] [address] [place] [address] Nurse Practitioner 01/12/24 Team Status: Inactive Member [...] BE BASED ON THE PRIMARY CLINICAL RECORDS. [facility] [employer] [facility]. provides no warranty or guarantee of the accuracy or completeness of information in this document.
[2024-03-31 06:20] LABS: Basophils Percent Auto 0.3 % (0.2-2.0); Eosinophils Absolute Auto 0.2 10^3/uL (0.0-0.7); Eosinophils Percent Auto 2.1 % (0.9-7.0); Hematocrit 38.6 % (36.0-48.0); Hemoglobin 12.8 g/dL (12.0-16.0); Immature Granulocytes Abs Auto 0.02 10^3/uL (0.00-0.03); Immature Granulocytes Pct Auto 0.2 % (0.0-0.5); Lymphocytes Absolute Auto 2.5 10^3/uL (1.2-3.8); Lymphocytes Percent Auto 27.9 % (20.5-60.0); Mean Corpuscular HGB Conc 33.2 g/dL (29.9-35.2); Mean Corpuscular Hemoglobin 29.1 pg (26.7-34.0); Mean Corpuscular Volume 87.7 fL (81.0-99.0); Mean Platelet Volume 9.9 fL (9.5-13.5); Monocytes Absolute Auto 0.7 10^3/uL (0.3-0.8); Neutrophils Absolute Auto 5.5 10^3/uL (1.4-6.5); Neutrophils Percent Auto 61.5 % (43.0-75.0); Platelet Count 338 10^3/uL (150-450); Red Cell Distribution Width 13.8 % (11.0-15.0)
[2024-03-31 06:41] LABS: HCG Quantitative <1 mIU/mL
[2024-03-31] MEDS: LACTATED RINGER'S SOLUTION 1,000 ML 50 ML IV (07:09)
[2024-03-31] MEDS: CEFAZOLIN SODIUM 2 GM/50 ML D5W PREMIX IV (07:46)
[2024-03-31] MEDS: ALBUTEROL SULFATE 2.5 MG/3 ML VIAL NEB IH (07:47)
--- NOTE | 2024-03-31 11:41 | PM.ONB ---
Brief Operative Note Date of procedure: 03/31/24 Pre-op diagnosis general: menorrhagia, dysmenorrhea, pelvic pain, dyspareunia Post-op diagnosis: same as pre-op Procedure: NAME OF PROCEDURE: ? Robotic assisted laparoscopic hysterectomy with cystoscopy, bilateral salpingectomy, rt ovarian cystectomy, removal of lt ovarian mass PROCEDURE:? The patient was taken back to the operating room, where she was prepped and draped in the normal sterile fashion after being placed in the dorsal lithotomy position.? Patient?s anesthesia was found to be adequate.? Surgical timeout was performed using two patient identifiers.? SCDs were on and in place.? Two grams of Ancef were given prior to the surgery.? Sterile Vanegas catheter was inserted.? Standard size VCare was secured to the uterine cervix and the surgeon changed gloves.? Attention then was turned to the patient's abdomen, where a supraumbilical incision was then made.? Two S retractors were used to identify the patient?s fascia.? The fascia was then tented up using Abdirahman clamps and the patient?s fascia was incised sharply.? Patient?s abdomen was identified and entered bluntly.? The patient had the trocar placed and a pneumoperitoneum was obtained.? Approximately 4 liters of CO2 gas was used.? The camera was then placed through the trocar.? At this time, two robot trocars were placed in the patient?s left and right side, two hand widths from the midline, and this was placed under direct visualization.? The patient?s tube on the right side was tented up and the vessel sealer was then used to come across the mesosalpinx, and this was carried down to the uterine ovarian ligament.? The vessel sealer was carried down serially to the broad ligament, to the area of the bladder flap, which was then created anteriorly, and the uterine arteries were skeletonized and sealed using the vessel sealer.? The colpotomy was made using the monopolar cautery on cut, and this was carried circumferentially, posteriorly to anteriorly, until the uterus was amputated.? The specimen was then removed intact through the vagina, without difficulty.?please note the ligasure was used to remove the lt ovarian mass and rt ovarian cyst. The vagina was then closed using two running V-Loc in a non-lock fashion.? The robot was undocked.? The abdomen was desufflated.? The skin defects were closed using 4-0 Vicryl.? Please note, the fascia was closed using 0 Vicryl.? Sponge, lap and needle counts were correct x2.? Patient was taken to recovery room in stable condition.? The patient was awakened by Anesthesia first.? Patient tolerated procedure well.??Please note left ovarian cystectomy was performed using the vessel sealer Surgeon: Hawk Anaya Lactation Coordinator: Cheri Worley Estimated blood loss (mL): 150 Pathology: other (uterus cervix and tubes and lt ovarian mass) Condition: stable Disposition: PACU Urinary Catheter Management Urinary Catheter Management Urethral: Cath placed during this visit: no
[2024-03-31] MEDS: LACTATED RINGER'S SOLUTION 1,000 ML 125 ML IV (12:27)
[2024-03-31] MEDS: OXYCODONE HCL/ACETAMINOPHEN 5MG/325MG 1 TAB PO (13:30)
[2024-03-31] MEDS: CEFAZOLIN SODIUM/DEXTROSE,ISO 2 GM/50 ML PIGGYBACK IV (14:59)
[2024-03-31 19:03] LABS: Basophils Percent Auto 0.1 % (0.2-2.0); Hematocrit 39.7 % (36.0-48.0); Hemoglobin 13.2 g/dL (12.0-16.0); Immature Granulocytes Abs Auto 0.04 10^3/uL (0.00-0.03); Immature Granulocytes Pct Auto 0.3 % (0.0-0.5); Lymphocytes Absolute Auto 1.2 10^3/uL (1.2-3.8); Lymphocytes Percent Auto 7.3 % (20.5-60.0); Mean Corpuscular HGB Conc 33.2 g/dL (29.9-35.2); Mean Corpuscular Hemoglobin 29.4 pg (26.7-34.0); Mean Corpuscular Volume 88.4 fL (81.0-99.0); Monocytes Absolute Auto 0.5 10^3/uL (0.3-0.8); Monocytes Percent Auto 2.9 % (1.7-12.0); Neutrophils Absolute Auto 14.3 10^3/uL (1.4-6.5); Neutrophils Percent Auto 89.4 % (43.0-75.0); Platelet Count 316 10^3/uL (150-450); Red Blood Count 4.49 10^6/uL (4.20-5.40)
[2024-03-31] MEDS: IBUPROFEN 400 MG TABLET 800 MG PO (19:38)
[2024-03-31] MEDS: OXYCODONE HCL/ACETAMINOPHEN 5MG/325MG 2 TAB PO (19:57)
== END 2024-03-31 20:05 | disposition home or self-care (01) ==
LOC: SURGOUT 11:50 → MS 12:44
PROVIDERS: Visit Provider Obstetrics & Gynecology
PROC: (CPT 00944; principal; 2024-03-31 07:30)
DX: N92.0 Excessive and frequent menstruation with regular cycle (principal); R10.2 Pelvic and perineal pain; N94.6 Dysmenorrhea, unspecified; N94.10 Unspecified dyspareunia; N83.201 Unspecified ovarian cyst, right side; N83.8 Other noninflammatory disorders of ovary, fallopian tube and broad ligament; N80.03 Adenomyosis of the uterus; R73.03 Prediabetes; F17.210 Nicotine dependence, cigarettes, uncomplicated
CPT/HCPCS: 00944; 58552; 36415; 84702; 85025; 88307; 94640; 94667; J0131; J0360; J0690; J1100; J1171; J1885; J2250; J2405; J2704; J3010

== ENCOUNTER 2025-01-04 10:03 | Outpatient (OUT) | payer OTHER, SELFPAY ==
--- OUTSIDE RECORDS SUMMARY | 2025-01-04 10:13 | XMS_ITS | CCD ---
Author Organization [facility] Care Team Providers Care Stamp Analyst Name Role Phone Jose Manuel Falcon Unavailable No, Physician Primary Care Provider Unavailabl e NO, PHYSICIAN Primary Care Unavailable YASMIN BROWN Attending Unavail able YASMIN BROWN Admitting Unavail able YASMIN BROWN Referring Unavail able NO, PHYSICIAN Primary Care Unavailable Lana Lombardi Primary Care Provider Maikel Leal Primary Care Provider [phone] ROXIE HUSSEIN Attending Unavailabl e MAIKEL LEAL Primary Care Unavailable GUSTAVO, PHYSICIAN Primary Care Unavailable SAMUEL MONTERO Attending Unavail able Maikel Leal MD Primary Care Provider Love Jimenez CNP Unavailable [phone] Maikel Leal MD Primary Care Provider Love Jimenez CNP Unavailable Elisha uFentes RN Unavailable Unavailable BarbaraLove stern CNP Unavailable Ariana Garza PA-C Primary Care Provide r Love Jimenez CNP Unavailable Love Jimenez CNP Unavailable Ariana Garza PA-C Primary Care Provide r Ariana Garza PA-C Primary Care Provide r Klaudia Marley RN Unavailable Unavailable CATRACHITO CUBA Referring Unavailab ARIANA Jose Primary Care Unavailab le CONNIFF, ARIANA LOEN Attending Unavailab le CONNIFF, ARIANA LEON Primary Care Unavailab le CONNIFF, ARIANA LEON Attending Unavailab le VENKATESH III, ASHLEY FOWLER Referring Unav ailable VENKATESH III, ASHLEY FOWLER Referring Unav ailable CONNIFF, ARIANA LEON Primary Care Unavailab le CONNIFF, ARIANA LEON Attending Unavailab marixa Barbara Love OCAMPO Unavailable [phone] CONNIFF, ARIANA LEON Primary Care Unavailab le VENKATESH III, ASHLEY FOWLER Attending Unav ailable VENKATESH III, ASHLEY FOWLER Referring Unav ailable CONNIFF, ARIANA LEON Primary Care Unavailab le CONNIFF, ARIANA LEON Primary Care Unavailab le KUMPF II, TRACY LICONA Attending Unavailable KUMPF II, TRACY LICONA Referring Unavailable CONNIFF, ARIANA LEON Primary Care Unavailab le CONNIFF, ARIANA LEON Referring Unavailab le CONNIFF, ARIANA LEON Primary Care Unavailab le CONNIFF, ARIANA LEON Attending Unavailab le CONNIFF, ARIANA LEON Primary Care Unavailab le CONNIFF, ARIANA LEON Attending Unavailab le CONNIFF, ARIANA LEON Referring Unavailab le KUMPF II, TRACY LICONA Attending Unavailable CONNIFF, ARIANA LEON Primary Care Unavailab le CONIGYNICOLE Attending Unavailable CONNIFF, ARIANA LEON Primary Care Unavailab le CONNIFF, ARIANA LEON Referring Unavailab le CONNIFF, ARIANA LEON Admitting Unavailab le CONNIFF, ARIANA LEON Primary Care Unavailab le KUMPF II, TRACY LICONA Attending Unavailable CONNIFF, ARIANA LEON Primary Care Unavailab le KUMPF II, TRACY LICONA Attending Unavailable CONNIFF, ARIANA LEON Referring Unavailab le CONNIFF, ARIANA LEON Primary Care Unavailab le KUMPF II, TRACY LICONA Attending Unavailable CONNIFF, ARIANA LEON Primary Care Unavailab le CONNIFF, ARIANA LEON Attending Unavailab le CONNIFF, ARIANA LEON Primary Care Unavailab le CONNIFF, ARIANA LEON Attending Unavailab le CONNIFF, ARIANA LEON Primary Care Unavailab le CONNIFF, ARIANA LEON Attending Unavailab le VENKATESH IIIASHLEY Attending Unav ailable CONNIFF, ARIANA LEON Primary Care Unavailab le CONNIFF, ARIANA LEON Referring Unavailab le CONNIFF, ARIANA LEON Attending Unavailab le CONNIFF, ARIANA LEON Primary Care Unavailab le Héctor DO, Hawk R Unavailable Dwain OCAMPO, Alyssa Gaytan Unavailable [phone] Sasha Alcala Attending Unavailable Héctor, Hawk Referring Unavailable KAYLA, ARIANA LEON Primary Care Unavailab le DWAIN, ALYSSA GAYTAN Attending Unavailable DWAIN, ALYSSA GAYTAN Attending Unavailable Unavailable Primary Care Provider Unavailabl e DO Hawk Anaya Attending Provider Héctor, Hawk Admitting Unavailable Héctor, Hawk Attending Unavailable Héctor, Hawk Attending Unavailable Héctor, Hawk Admitting Unavailable HÉCTOR, HAWK Attending Unavailable HÉCTOR, HAWK Attending Unavailable HÉCTOR, HAWK Attending Unavailable HÉCTOR, HAWK Attending Unavailable CONNIEHARPER Attending Unavailable CONNIE, HARPER Attending Unavailable Allergies Allergy Classification Reported Allergen(s) Allergy Type Date of Onset Reaction(s) Facility NSAIDs (1 source) Ibuprofen Drug Allergy 9 GI Intolerance [facility] (20 sources) Ibuprofen; Translations: [Unknown] Drug Allergy 8 Nausea and Vomiting, GI Intolerance [facility] Work Phone: (20 sources) bee venom Propensity to adverse reactions to drug 9 Anaphylaxis [facility] (5 sources) BEE VENOM PROTEIN (HONEY BEE); Translations: [BEE VENOM PROTEIN (HONEY BEE)] Propensity to adverse reactions to drug (disorder) 9 [facility] (1 source) Ibuprofen Drug Allergy 4 [facility] (20 sources) Honey bee venom Propensity to adverse reactions 9 Anaphylaxis [facility] Work Phone: Medications Current Medications Medication Drug Class(es) Dates Sig (Normalized) Sig (Original) blood-glucose sensor (FreeStyle Andrew 3 Sensor) Malia (17 sources) Start: [...] days . 2 each 2 04/25/2023 Active busPIRone hydrochloride 5 mg oral tablet (7 [...] a day . 14 tablet 08/19/2023 Active metroNIDAZOLE 500 mg oral tablet (7 sources) Nitroimidazole Antimicrobial Start: 01-12-2024 End: 01-22-2024 metroNIDAZOLE (Flagyl) 500 MG tablet Take 500 mg by mouth in the morning and 500 mg at noon and 500 mg in the evening. Take with meals. 01/12/2024 01/22/2024 Active Start: 12-25-2023 End: 01-01-2024 take 1 tablet by mouth in the morning metroNIDAZOLE (Flagyl) 500 MG tablet Indications: Discharge from right nipple Take 1 tablet (500 mg) by mouth in the morning and 1 tablet (500 mg) before bedtime. Do all this for 7 days. Do not drink alcohol while taking this medication. 14 tablet 12/25/2023 01/01/2024 Active multivitamin (THERAGRAN) per tablet (20 sources) take 1 tablet by rolly th once daily multivitamin (THERAGRAN) per tablet Take [...] tablet (12 sources) Serotonin Reuptake Inhibitor Start: End: 0 take 1 tablet by mouth [...] ORCO) 5-325 MG per tablet 1 Each baclofen 5 mg oral tablet (12 sources) gamma-Aminobutyric Acid-ergic Agonist Start: 04-25-2023 End: 12-15-2023 take 1 tablet by mouth three times daily as needed baclofen (Lioresal) 5 MG tablet Take 5 mg by mouth 3 (three) times a day as needed 04/25/2023 12/15/2023 Discontinued (Other) Start: 01-23-2023 take 1 tablet by rolly th three times daily as needed baclofen 5 mg Tab Indications: Multiple joint complaints Take 1 (one) tablet (5 mg total) by mouth 3 (three) times a day as needed . 90 tablet 0 01/23/2023 Active blood-glucose sensor (Dexcom G7 Sensor) Malia (8 [...] (PF) (MARCAINE) 0.5 % injection 10 mL 24 hr buPROPion hydrochloride 300 mg extended release oral tablet (20 sources) Aminoketone Start: 08-19-2023 End: 12-15-2023 take 1 tablet by mouth every twenty-four hours in the morning buPROPion XL (Wellbutrin XL) 300 MG 24 hr tablet Take 300 mg by mouth in the morning. 08/19/2023 12/15/2023 Discontinued (Other) Start: 04-25-2023 End: 08-19-2023 take 1 tablet [...] Discontinued (Reorder (Suppress CancelRx Message to Pharmacy)) cephalexin 500 mg oral capsule (1 source) [...] . 60 tablet 0 09/10/2022 01/23/2023 Discontinued Continuous Glucose Sensor (FreeStyle Andrew 3 Sensor) misc (4 sources) Start: 09-29-2023 End: 12-15-2023 Continuous Glucose Sensor (FreeStyle Andrew 3 Sensor) misc USE DIRECTED FOR CONTINUOUS GLUCOSE MONITORING. CHANGE EVERY 14 DAYS. 09/29/2023 12/15/2023 Discontinued (Other) Start: 08-19-2023 End: 12-15-2023 Continuous Glucose Sensor (F reeStyle Andrew 3 Sensor) misc For continuous glucose monitoring. Change every 14 days . 08/19/2023 12/15/2023 Discontinued (Other) cyclobenzaprine hydrochloride 5 mg oral tablet (9 [...] / neomycin 3.5 mg/ml / polymyxin b 83934 unt/ml ophthalmic suspension (1 source) Aminoglycoside Antibacterial, Polymyxin-class Antibacterial, Corticosteroid Start: 05-07-2019 End: 06-10-2019 take 1 drop(s) into the eye(s) every four hours lgiksuqu-ugzkiagpd-qtyuddnrwccxk 3.5-52409-3.[address] 1 drop in both eyes every 4 hours while awake. 5 mL 0 05/07/2019 06/10/2019 Discontinued 30 ml EPINEPHrine 0.005 mg/ml / lidocaine hydrochloride 10 mg/ml injection (1 source) Antiarrhythmic, alpha-Adrenergic Agonist, beta-Adrenergic Agonist, Catecholamine, Amide Local Anesthetic Start: 03-18-2018 End: 03-18-2018 lidocaine-epinephrine 1%-1:2 37965 injection SOLN 10 mL Start: 03-18-2018 End: 03-18-2018 lidocaine-epinephrine 1%-1:2 17558 injection SOLN 10 mL lidocaine 0.05 mg/mg [...] 05/08/2020 02/05/2022 Discontinued (Patient's Request) 24 hr metFORMIN hydrochloride 500 mg extended release oral tablet (20 sources) Biguanide Start: 08-19-2023 End: 01-20-2024 take 1 tablet by mouth every twenty-four hours at mealtime metFORMIN XR (Glucophage-XR) 500 MG 24 hr tablet Take 500 mg by mouth in the morning. Take with meals. 08/19/2023 01/20/2024 Discontinued Start: 01-23-2023 End: 01-23-2024 take 1 tablet by mouth once daily at breakfast metFORMIN (GLUCOPHAGE-XR) 500 MG 24 hr tablet Indications: Prediabetes Take 1 (one) tablet (500 mg total) by mouth daily with breakfast . 90 tablet 1 08/19/2023 Active Multiple Vitamin (Multi-Vitamin) tablet (2 sources) End: 12-15-2023 take 1 tablet by mouth in the morning Multiple Vitamin (Multi-Vitamin) tablet Take 1 tablet by mouth in the morning. 12/15/2023 Discontinued (Other) 24 hr oxybutynin chloride 5 mg extended [...] . 9 tablet 0 09/10/2022 01/23/2023 Discontinued sulfamethoxazole 800 mg / trimethoprim 160 mg oral tablet (19 sources) Dihydrofolate Reductase Inhibitor Antibacterial, Sulfonamide Antimicrobial Start: 01-12-2024 End: 01-22-2024 take 1 tablet by mouth twice daily sulfamethoxazole-tr imethoprim (BACTRIM DS,SEPTRA DS) 800-160 mg per tablet Take 1 (one) tablet by mouth 2 (two) times a day for 10 days . 20 tablet 01/12/2024 01/22/2024 Active Start: 01-01-2024 End: 05-13-2024 take 1 tablet by mouth once in the morning, then take 1 tablet by mouth once at bedtime sulfamethoxazole-trimethoprim (Bactrim D S) 800-160 MG per tablet Take 1 tablet by mouth in the morning and 1 tablet before bedtime. 01/12/2024 05/13/2024 Discontinued (Other) Problems Active Problems Problem Classification Problem Date Documented Date Episodic/Chronic Abdominal pain (6 sources) Pain in female pelvis; Translations: [Pelvic [...] biological agents ruled out] Episodic Menstrual disorders (11 sources) Menorrhagia; Translations: [Excessive and frequent menstruation with regular cycle] 03-02-2024 Chronic Mood disorders (8 sources) Moderate major depression, single episode; Translations: [Major depressive disorder, single episode, moderate] Onset: 01-23-2023 Chronic Other aftercare (4 sources) Postoperative visit; Translations: [Encounter for other specified surgical aftercare] 04-07-2024 Episodic Other circulatory disease (1 source) Elevated blood pressure; Translations: [Elevated blood pressure reading] Episodic Other connective tissue disease (1 source) Pain in right foot; Translations: [Foot pain, right] Episodic Other diseases of bladder and urethra (1 source) Overactive bladder; Translations: [Overactive bladder] Chronic Other endocrine disorders (2 sources) Polycystic ovary syndrome; Translations: [Polycystic ovarian syndrome] 12-15-2023 Chronic Other female genital disorders (2 sources) Pain in female genitalia on intercourse; Translations: [Unspecified dyspareunia] 03-02-2024 Chronic Other female genital disorders (4 sources) Abnormal uterine bleeding; Translations: [Abnormal uterine and vaginal bleeding, unspecified] 12-30-2023 Chronic Other female genital disorders (2 sources) Enlarged uterus; Translations: [Hypertrophy of uterus] 01-20-2024 Episodic Other non-traumatic joint disorders (1 source) Joint [...] conditions (not mental disorders or infectious disease) (4 sources) Endometrium thickened; Translations: [Abnormal findings on diagnostic imaging of other specified body structures] 12-30-2023 Chronic Other screening for suspected conditions (not [...] WITH AUTO DIFFon BASOPHILS ABSOLUTE AUTO 0 [facility] Basophils/100 WBC (Bld) 0.3 % 0.2 - 2.0 % [facility] Eosinophils/100 WBC (Bld) 2.1 % 0.9 - 7.0 % [facility] Erythrocyte distribution width (RBC) [Ratio] 13.8 % 11.0 - 15.0 % [facility] Hematocrit (Bld) [Volume fraction] 38.6 % 36.0 - 48.0 % [facility] Hemoglobin (Bld) [Mass/Vol] 12.8 g/dL 12.0 - 16.0 g/dL [facility] IMMATURE GRANULOCYTES ABS AUTO 0.02 [facility] Immature granulocytes/100 WBC (Bld) 0.2 % 0.0 - 0.5 % [facility] LYMPHOCYTES ABSOLUTE AUTO 2.5 [facility] Lymphocytes/100 WBC (Bld) 27.9 % 20.5 - 60.0 % [facility] MCH (RBC) [Entitic mass] 29.1 pg 26.7 - 34.0 pg [facility] MCHC (RBC) [Mass/Vol] 33.2 g/dL 29.9 - 35.2 g/dL [facility] MCV (RBC) [Entitic vol] 87.7 fL 81.0 - 99.0 fL [facility] MONOCYTES ABSOLUTE AUTO 0.7 [facility] Monocytes/100 WBC (Bld) 8 % 1.7 - 12.0 % [facility] NEUTROPHILS ABSOLUTE AUTO 5.5 [facility] Neutrophils/100 WBC (Bld) 61.5 % 43.0 - 75.0 % [facility] Platelet mean volume (Bld) [Entitic vol] 9.9 fL 9.5 - 13.5 fL [facility] PLT 338 [facility] RBC 4.4 [facility] WBC 9 [facility] [place] 03-31-2024 L - -------- Specimen: [id number] Received: 04/01/24 Status: JEAN Cueva Num: [id number] Spec Type: Surgical Subm Dr: Hawk Anaya Tissues: A Uterus w/ or w/o tubes ovaries except neoplastic or prolap (UTER,CERV,TONYA Procedures: /13, Gross/Micro L5 -------- Age/ Patient Sex Location Account Attending Physician -------- Lele Leon 38/F [facility] [id number] Hawk Anaya -------- SPEC NUM: [id number] RECD: 04/01/24 STATUS: JEAN CUEVA NUM: [id number] TRAMAINE: 03/31/24 [facility] DR: Hawk Anaya ENTERED: 04/01/24 [facility] DR: Addison,Lab SPEC TYPE: Surgical DEPT: JOANIE COOPER ENTERED BY: [id number] RECV BY: [id number] ORDERED: HE/, Gross/Micro L5 ORDERED: HE, Gross/Micro L5 Pathological Diagnosis Uterine with cervix, bilateral fallopian tubes and bilateral ovaries, total hysterectomy and bilateral salpingo-oophorectomy : - Cervix with squamous metaplasia. - Late secretory phase endometrium. - Adenomyosis and multiple intramural and subserosal leiomyomata. - Unremarkable bilateral fallopian tubes with a paratubal cyst. - Fragments of ovarian tissue with hemorrhage consistent with functional cysts. - No evidence of dysplasia, hyperplasia or malignancy identified. Clinical Information Menorrhagia, pelvic pain, dysmenorrhea, dyspareunia, bilateral ovarian cyst, fibroid Gross Description Part A is received in formalin labeled with the patients name, date of , and uterus, cervix, bilateral tubes and ovaries Is a 193.5 grams hysterectomy specimen, which consists of a uterine corpus with attached cervix, resected with detached bilateral fallopian tubes, detached partially encapsulated nodules, and detached fragments of fibromembranous tissue. The uterine corpus is globoid and asymmetrical, 5.3 cm cornu to cornu, 6.5 cm anterior to posterior and 10.5 cm fundus to ectocervical face. The serosa is chapman-pink, smooth and glistening with 2 superficial defects, 3.2 x 3 cm, and 6 x 5 cm. The cervix is 1 cm in length by up to 3.2 cm in diameter. The ectocervical face exhibits chapman-pink, focally erythematous, smooth and glistening mucosa with a slitlike cervical os, up to 1.1 cm in diameter. The specimen is opened to reveal a chapman-pink, wrinkled and glistening endocervical -------- Specimen: [id number] Received: 04/01/24 Status: JEAN Cueva Num: [id number] Spec Type: Surgical Subm Dr: Hawk Anaya Tissues: A Uterus w/ or w/o tubes ovaries except neoplastic or prolap (UTER,CERV,TONYA Procedures: , Gross/Micro L5 -------- Patient: Lele Leon [id number] (Continued) -------- Specimen: [id number] Received: 04/01/24 (Continued) Gross Description (Continued) Signed (signature on file) Refugio Blackwood MD 04/05/24 1139 -------- Specimen: [id number] Received: 04/01/24 Status: JEAN Ochoaheidi Num: [id number] Spec Type: Surgical Subm Dr: Hawk Anaya Tissues: A Uterus w/ or w/o tubes ovaries except neoplastic or prolap (UTER,CERV,TONYA Procedures: , Gross/Micro L5 -------- Patient: Lele Leon [id number] (Continued) -------- Specimen: [id number] Received: 04/01/24 (Continued) Gross Description (Continued) canal. The endometrial cavity is chapman-pink, focally erythematous, glistening, distorted and somewhat ovoid, 3.5 x 3 cm with plush endometrium, up to 0.5 cm in thickness. The myometrium is chapman-pink and trabecular, up to 4.5 cm in thickness. Within the myometrium are multiple (at least 6), well-circumscribed intramural nodules, ranging from 0.2 to 5 cm in greatest dimension. The detached bilateral fallopian tubes with fimbriated distal ends are received on oriented. The shorter tube is 6.5 cm in length by 0.7 cm in diameter, and the longer tube is 7.5 cm in length by 0.7 cm in diameter. The serosa is rodrigez-purple, smooth and glistening with fatty adhesions. Serial sections reveal pinpoint lumen within each segment. The detached partially encapsulated nodules are 2.7 x 2.3 x 1.8 cm, and 4.6 x 3.3 x 3 cm, and may correspond to the serosal defects. The capsular surfaces are chapman-pink, membranous, smooth and glistening (more content not included)... Normal [facility] ALL CBC WITH AUTO DIFFon BASOPHILS ABSOLUTE AUTO 0 [facility] Basophils/100 WBC (Bld) 0.4 % 0.2 - 2.0 % [facility] Eosinophils/100 WBC (Bld) 1.6 % 0.9 - 7.0 % [facility] Erythrocyte distribution width (RBC) [Ratio] 14.2 % 11.0 - 15.0 % [facility] Hematocrit (Bld) [Volume fraction] 39.3 % 36.0 - 48.0 % [facility] Hemoglobin (Bld) [Mass/Vol] 13 g/dL 12.0 - 16.0 g/dL [facility] IMMATURE GRANULOCYTES ABS AUTO 0.02 [facility] Immature granulocytes/100 WBC (Bld) 0.3 % 0.0 - 0.5 % [facility] LYMPHOCYTES ABSOLUTE AUTO 1.9 [facility] Lymphocytes/100 WBC (Bld) 24 % 20.5 - 60.0 % [facility] MCH (RBC) [Entitic mass] 29.7 pg 26.7 - 34.0 pg [facility] MCHC (RBC) [Mass/Vol] 33.1 g/dL 29.9 - 35.2 g/dL [facility] MCV (RBC) [Entitic vol] 89.7 fL 81.0 - 99.0 fL [facility] MONOCYTES ABSOLUTE AUTO 0.5 [facility] Monocytes/100 WBC (Bld) 5.7 % 1.7 - 12.0 % [facility] NEUTROPHILS ABSOLUTE AUTO 5.4 [facility] Neutrophils/100 WBC (Bld) 68 % 43.0 - [...] [Ratio] 14.6 % 11.0 - 15.0 % [facility] Hematocrit (Bld) [Volume fraction] 39.5 % 36.0 - 48.0 % [facility] Hemoglobin (Bld) [Mass/Vol] 12.8 g/dL 12.0 - 16.0 g/dL [facility] IMMATURE GRANULOCYTES ABS AUTO 0.03 [facility] Immature granulocytes/100 WBC (Bld) 0.3 % 0.0 - 0.5 % [facility] LYMPHOCYTES ABSOLUTE AUTO 2.2 [facility] Lymphocytes/100 WBC (Bld) 24.3 % 20.5 - 60.0 % [facility] MCH (RBC) [Entitic mass] 29.3 pg 26.7 - 34.0 pg [facility] MCHC (RBC) [Mass/Vol] 32.4 g/dL 29.9 - 35.2 g/dL [facility] MCV (RBC) [Entitic vol] 90.4 fL 81.0 - 99.0 fL [facility] MONOCYTES ABSOLUTE AUTO 0.7 [facility] Monocytes/100 WBC (Bld) 7.6 % 1.7 - 12.0 % [facility] NEUTROPHILS ABSOLUTE AUTO 5.9 [facility] Neutrophils/100 WBC (Bld) 65.2 % 43.0 - 75.0 % [facility] [...] Pathology Request for Lab Mundo Normal [facility] Comment on above: Order Comment: PATHO LOGY DIAMOND SAW OPERATOR SPECIMEN Result Comment: See report. Scanned copy available in EMR. PERFORMED BY: [facility] [address] [place] [address] PATHOLOGIST INSTRUCTIONAL FACILITATOR HAYDEE FRANKLIN M.D. Performed By: #### P ATH TO [facility] #### [facility] [address] IGP,APTIMA HPV,AGE GDLNon AGE GDLN ACOG TESTING Note . [facility] Comment on above: TESTS RESULT FLAG UN ITS REF RANGE LAB Clinician Provided Cytology Information Source.............Cervix;Endocervix No. of containers..01 ThinPrep Vial Age Algo ACOG Drea... FLAG LEGEND: L-Low Normal,H-High Normal,LL-Alert Low,HH-Alert High <-Panic Low,>-Panic High,A-Abnormal,AA-Critical Abnormal Performed at: 01 =G [facility] [place] [place] [address] Vianney Rod MD, HPV APTIMA Negative Negative [facility] Comment on above: This nucleic acid am plification test detects fourteen high- risk HPV types (16,18,31,33,35,39,45,51,52,56,58,59,66,68) without differentiation. Performed at: =G - [facility], [place] [id number] Car Usher: Vianney Rod MD, Phone: [phone] Performed at: - [facility], [place] [id number] Car Usher: Vianney Rod MD, Phone: [phone] IGP, APTIMA HPV, RFX 16/18,45 Note . [facility] Comment on above: TESTS RESULT FLAG UN ITS REF RANGE LAB DIAGNOSIS: 02 NEGATIVE FOR INTRAEPITHELIAL LESION OR MALIGNANCY. Specimen adequacy: 02 Satisfactory for evaluation. No endocervical component is identified. Performed by: Trish Hermosillo, Communications Project Manager (ASCP) . 02 Note: Note 02 The [...] <-Panic Low,>-Panic High,A-Abnormal,AA-Critical Abnormal Performed at: [address] [address] Vianney Rod MD, BRUSH-SPATULA CERVIX ENDOCERVIX [facility] BOX TEST SENT OUTon 12-27 BOX TEST SENT OUT [facility] Comment on above: SEE SCANNED REPORT [facility] BODY FLUID AEROBIC CULTUREon 01-12-2024 BODY FLUID AEROBIC CULTURE AEROBIC CULTURE No Growth after 5 days GRAM STAIN RESULT WBC This is a corrected result. Previous result was Many WBC No Organisms Seen Normal [facility] Comment on above: Performed By: #### [id number] #### [facility] [address] [place] [address] Javier Santana M.D. [id number] Plastic Surgery Visit Report on 12-31-2023 Plastic Surgery Visit Report [facility] Plastic Reconstructive Surgery [address] [facility] [facility] [place], [address] [place] [id number] OFFICE VISIT Date of Service: 12/31/23 MR#: [id number] Acct: [id number] Name: LELE LEON Rep #: [id number] : 1985 Provider: Dr. Sasha abdi MD Age/Sex: 38/F Location: [facility] Status: Signed Intake Vital Signs 12/31/23 [...] her to their in-house plastic surgeon at [place]. She underwent a needle biopsy of the [...] I had (more content not included)... Normal [facility] ALL CBC WITH AUTO DIFFon BASOPHILS ABSOLUTE AUTO 0.0 [facility] Basophils/100 WBC (Bld) 0.5 % 0.2 - 2.0 % [facility] Eosinophils/100 WBC (Bld) 1.7 % 0.9 - 7.0 % [facility] Erythrocyte distribution width (RBC) [Ratio] 14.2 % 11.0 - 15.0 % [facility] Hematocrit (Bld) [Volume fraction] 38.8 % 36.0 - 48.0 % [facility] Hemoglobin (Bld) [Mass/Vol] 12.8 g/dL 12.0 - 16.0 g/dL [facility] IMMATURE GRANULOCYTES ABS AUTO 0.02 [facility] Immature granulocytes/100 WBC (Bld) 0.2 % 0.0 - 0.5 % [facility] LYMPHOCYTES ABSOLUTE AUTO 2.5 [facility] Lymphocytes/100 WBC (Bld) 29.7 % 20.5 - 60.0 % [facility] MCH (RBC) [Entitic mass] 29.4 pg 26.7 - 34.0 pg [facility] MCHC (RBC) [Mass/Vol] 33.0 g/dL 29.9 - 35.2 g/dL [facility] MCV (RBC) [Entitic vol] 89.2 fL 81.0 - 99.0 fL [facility] MONOCYTES ABSOLUTE AUTO 0.5 [facility] Monocytes/100 WBC (Bld) 6.2 % 1.7 - 12.0 % [facility] NEUTROPHILS ABSOLUTE AUTO 5.2 [facility] Neutrophils/100 WBC (Bld) 61.7 % 43.0 - 75.0 % [facility] Platelet mean volume (Bld) [Entitic vol] 10.4 fL 9.5 - 13.5 fL [facility] EO # 0.1 [facility] PLT 351 [facility] [facility] RBC 4.35 [facility] TBH WBC 8.5 [facility] CLINISYNC NOM [facility] CBC WITH AUTO DIFFERENTIALon 10-17-2023 AUTO NRBC 0.0 % Normal [facility] Comment on above: Performed By: #### L [id number] #### [facility] [address] [address] Tenisha Vizcarra M.D. [id number] AUTO NRBC ABS COUNT 0.00 K/mcL Normal 0.00-0.00 [facility] Comment on above: Performed By: #### L [id number] #### [facility] [address], [place] [address] Tenisha Vizcarra M.D. [id number] BASOPHILS ABSOLUTE COUNT 0.04 K/mcL Normal 0.00-0.30 [facility] Comment on above: Performed By: #### L [id number] #### [facility] [address], [place] [address] Tenisha Vizcarra M.D. [id number] Basophils/100 WBC (Bld) 0.5 % Normal [facility] Comment on above: Performed By: #### L [id number] #### [facility] [address] [address] Tenisha Vizcarra M.D. [id number] Eosinophils (Bld) [#/Vol] 0.14 10*3/uL Normal 0.00-0.50 [facility] Comment on above: Performed By: #### L [id number] #### [facility] [address] [address] Tenisha Vizcarra M.D. [id number] Eosinophils/100 WBC (Bld) 1.7 % Normal [facility] Comment on above: Performed By: #### L [id number] #### [facility] [address] [address] Tenisha Vizcarra M.D. [id number] Erythrocyte distribution width (RBC) [Ratio] 14.2 % Normal 11.6-14.8 [facility] Comment on above: Performed By: #### L [id number] #### [facility] [address] [place] [address] Tenisha Vizcarra M.D. [id number] Hematocrit (Bld) [Volume fraction] 40.2 % Normal 36.0-46.0 [facility] Comment on above: Performed By: #### L [id number] #### [facility] [address] [address] Tenisha Vizcarra M.D. [id number] Hemoglobin (Bld) [Mass/Vol] 13.2 g/dL Normal 12.0-16.0 [facility] Comment on above: Performed By: #### L [id number] #### [facility] [address] [place] [address] Tenisha Vizcarra M.D. [id number] IG ABSOLUTE 0.03 K/mcL Normal 0.00-0.30 [facility] Comment on above: Performed By: #### L [id number] #### [facility] [address] [place] [address] Tenisha Vizcarra M.D. [id number] IG PERCENT 0.40 % Normal [facility] Comment on above: Result Comment: The IG parameter is the percentage of metamyelocytes, myelocytes and promyelocytes. An immature granulocyte count (IG) of 1% or more suggests the possibility of infection, an IG count of 3% is very likely related to an infection. Performed By: #### L [id number] #### [facility] [address] [address] Tenisha Vizcarra M.D. [id number] Lymphocytes (Bld) [#/Vol] 2.38 10*3/uL Normal 0.90-4.00 [facility] Comment on above: Performed By: #### L [id number] #### [facility] [address] [address] Tenisha Vizcarra M.D. [id number] Lymphocytes/100 WBC (Bld) 29.5 % Normal [facility] Comment on above: Performed By: #### L [id number] #### [facility] [address] [address] Tenisha Vizcarra M.D. [id number] MCH (RBC) [Entitic mass] 29.6 pg Normal 26.0-34.0 [facility] Comment on above: Performed By: #### L [id number] #### [facility] [address] [address] Tenisha Vizcarra M.D. [id number] MCV (RBC) [Entitic vol] 90.1 fL Normal 80.0-100.0 [facility] Comment on above: Performed By: #### L [id number] #### [facility] [address] [address] Tenisha Vizcarra M.D. [id number] MEAN CORPUSCULAR HEMOGLOBIN CONC 32.8 g/dL Normal 31.0-37.0 [facility] Comment on above: Performed By: #### L [id number] #### [facility] [address] [address] Tenisha Vizcarra M.D. [id number] Monocytes (Bld) [#/Vol] 0.57 10*3/uL Normal 0.30-0.90 [facility] Comment on above: Performed By: #### L [id number] #### [facility] [address] [address] Tenisha Vizcarra M.D. [id number] Monocytes/100 WBC (Bld) 7.1 % Normal [facility] Comment on above: Performed By: #### L [id number] #### [facility] [address], [place] [address] Tenisha Vizcarra M.D. [id number] NEUTROPHILS ABSOLUTE COUNT 4.91 K/mcL Normal 1.70-7.00 [facility] Comment on above: Performed By: #### L [id number] #### [facility] [address] [address] Tenisha Vizcarra M.D. [id number] Neutrophils/100 WBC (Bld) 60.8 % Normal [facility] Comment on above: Performed By: #### L [id number] #### [facility] [address], [place] [address] Tenisha Vizcarra M.D. [id number] Platelet mean volume (Bld) [Entitic vol] 10.6 fL Normal 9.4-12.4 [facility] Comment on above: Performed By: #### L [id number] #### [facility] [address], [place] [address] Tenisha Vizcarra M.D. [id number] Platelets (Bld) [#/Vol] 371 10*3/uL Normal 150-400 [facility] Comment on above: Performed By: #### L [id number] #### [facility] [address] [address] Tenisha Vizcarra M.D. [id number] RBC (Bld) [#/Vol] 4.46 10*6/uL Normal 4.00-5.20 [facility] Comment on above: Performed By: #### L [id number] #### [facility] [address] [address] Tenisha Vizcarra M.D. [id number] WBC (Bld) [#/Vol] 8.07 10*3/uL Normal 4.50-11.00 [facility] Comment on above: Performed By: #### L [id number] #### [facility] [address], [place] [address] Tenisha Vizcarra M.D. [id number] COMPREHENSIVE METABOLIC PANE Che[place] 10-17-2023 Albumin [Mass/Vol] 3.8 g/dL Normal 3.2-5.2 [facility] Comment on above: Order Comment: [facility] has implemented the eGFR calculation approach that does not have a coefficient for race that conforms to the NKF-ASN Task Force Recommendations. Performed By: #### 4 [id number] #### [facility] [address], [place] [address] Tenisha Vizcarra M.D. [id number] ALP [Catalytic activity/Vol] 81 U/L Normal 40-140 [facility] Comment on above: Order Comment: [facility] has implemented the eGFR calculation approach that does not have a coefficient for race that conforms to the NKF-ASN Task Force Recommendations. Performed By: #### 4 [id number] #### [facility] [address] [place] [address] Tenisha Vizcarra M.D. [id number] ALT [Catalytic activity/Vol] 15 U/L Normal 0-35 U/L [facility] Comment on above: Order Comment: [facility] has implemented the eGFR calculation approach that does not have a coefficient for race that conforms to the NKF-ASN Task Force Recommendations. Performed By: #### 4 [id number] #### [facility] [address] [place] [address] Tenisha Vizcarra M.D. [id number] Anion gap [Moles/Vol] 12 mmol/L Normal 10-20 [facility] Comment on above: Order Comment: [facility] has implemented the eGFR calculation approach that does not have a coefficient for race that conforms to the NKF-ASN Task Force Recommendations. Performed By: #### 4 [id number] #### [facility] [address] [place] [address] Tenisha Vizcarra M.D. [id number] AST [Catalytic activity/Vol] 16 U/L Normal 0-35 U/L [facility] Comment on above: Order Comment: [facility] has implemented the eGFR calculation approach that does not have a coefficient for race that conforms to the NKF-ASN Task Force Recommendations. Performed By: #### 4 [id number] #### [facility] [address], [place] [address] Tenisha Vizcarra M.D. [id number] Bilirubin [Mass/Vol] 0.3 mg/dL Normal 0.0-1.3 [facility] Comment on above: Order Comment: [facility] has implemented the eGFR calculation approach that does not have a coefficient for race that conforms to the NKF-ASN Task Force Recommendations. Performed By: #### 4 [id number] #### [facility] [address], [place] [address] Tenisha Vizcarra M.D. [id number] Calcium [Mass/Vol] 9.2 mg/dL Normal 8.4-10.2 [facility] Comment on above: Order Comment: [facility] has implemented the eGFR calculation approach that does not have a coefficient for race that conforms to the NKF-ASN Task Force Recommendations. Performed By: #### 4 [id number] #### [facility] [address], [place] [address] Tenisha Vizcarra M.D. [id number] Chloride [Moles/Vol] 105 mmol/L Normal 98-108 [facility] Comment on above: Order Comment: [facility] has implemented the eGFR calculation approach that does not have a coefficient for race that conforms to the NKF-ASN Task Force Recommendations. Performed By: #### 4 [id number] #### [facility] [address], [place] [address] Tenisha Vizcarra M.D. [id number] Creatinine [Mass/Vol] 0.66 mg/dL Normal 0.40-1.10 [facility] Comment on above: Order Comment: [facility] has implemented the eGFR calculation approach that does not have a coefficient for race that conforms to the NKF-ASN Task Force Recommendations. Performed By: #### 4 [id number] #### [facility] [address], [place] [address] Tenisha Vizcarra M.D. [id number] EGFR 116 mL/min/1.73 m2 Normal >=60 [facility] Comment on above: Order Comment: [facility] has implemented the eGFR calculation approach that does not have a coefficient for race that conforms to the NKF-ASN Task Force Recommendations. Result Comment: Coco mated GFR was calculated using the 2020 CKD-EPI creatinine equation. Performed By: #### 4 [id number] #### [facility] [address], [place] [address] Tenisha Vizcarra M.D. [id number] Glucose [Mass/Vol] 115 mg/dL High 65-99 [facility] Comment on above: Order Comment: [facility] has implemented the eGFR calculation approach that does not have a coefficient for race that conforms to the NKF-ASN Task Force Recommendations. Performed By: #### 4 [id number] #### [facility] [address], [place] [address] Tenisha Vizcarra M.D. [id number] HCO3 (Bld) [Moles/Vol] 24 mmol/L Normal 21-32 [facility] Comment on above: Order Comment: [facility] has implemented the eGFR calculation approach that does not have a coefficient for race that conforms to the NKF-ASN Task Force Recommendations. Performed By: #### 4 [id number] #### [facility] [address], [place] [address] Tenisha Vizcarra M.D. [id number] Potassium [Moles/Vol] 3.7 mmol/L Normal 3.5-5.1 [facility] Comment on above: Order Comment: [facility] has implemented the eGFR calculation approach that does not have a coefficient for race that conforms to the NKF-ASN Task Force Recommendations. Performed By: #### 4 [id number] #### [facility] [address], [place] [address] Tenisha Vizcarra M.D. [id number] Protein [Mass/Vol] 7.2 g/dL Normal 6.0-8.0 [facility] Comment on above: Order Comment: [facility] has implemented the eGFR calculation approach that does not have a coefficient for race that conforms to the NKF-ASN Task Force Recommendations. Performed By: #### 4 [id number] #### [facility] [address], [place] [address] Tenisha Vizcarra M.D. [id number] Sodium [Moles/Vol] 137 mmol/L Normal 135-145 [facility] Comment on above: Order Comment: [facility] has implemented the eGFR calculation approach that does not have a coefficient for race that conforms to the NKF-ASN Task Force Recommendations. Performed By: #### 4 6126 #### [facility] [address], [place] [address] Tenisha Vizcarra M.D. [id number] Urea nitrogen [Mass/Vol] 12 mg/dL Normal 8-25 [facility] Comment on above: Order Comment: [facility] has implemented the eGFR calculation approach that does not have a coefficient for race that conforms to the NKF-ASN Task Force Recommendations. Performed By: #### 4 [id number] #### [facility] [address], [place] [address] Tenisha Vizcarra M.D. [id number] Urea nitrogen/Creatinine [Mass ratio] 18.2 mg/mg Normal 10.0-20.0 [facility] Comment on above: Order Comment: [facility] has implemented the eGFR calculation approach that does not have a coefficient for race that conforms to the NKF-ASN Task Force Recommendations. Performed By: #### 4 [id number] #### [facility] [address], [place] [address] Tenisha Vizcarra M.D. [id number] HEMOGLOBIN A1Con 10-17-2023 Glucose [Mass/Vol] 126 mg/dL High 74-114 [facility] Comment on above: Performed By: #### 4 [id number] #### [facility] [address], [place] [address] Tenisha Vizcarra M.D. [id number] HbA1c (Bld) [Mass fraction] 6.0 % High 4.2-5.6 [facility] Comment on above: Performed By: #### 4 8202 #### [facility] [address], [place] [address] Tenisha Vizcarra M.D. [id number] LIPID PANELon 10-17-2023 Cholesterol [Mass/Vol] 150 mg/dL Normal 100-199 [facility] Comment on above: Performed By: #### 4 6087 #### [facility] [address], [place] [address] Tenisha Vizcarra M.D. [id number] Cholesterol in HDL [Mass/Vol] 37 mg/dL Low 40-59 [facility] Comment on above: Performed By: #### 4 6087 #### [facility] [address], [place] [address] Tenisha Vizcarra M.D. [id number] Cholesterol.total/Ch olesterol in HDL [Mass ratio] 4.1 {ratio} Normal [facility] Comment on above: Result Comment: Fema le Cholesterol/HDL Ratio: Average risk: 4.4 1/2 average risk: 3.3 2 x average risk: 7.1 Performed By: #### 4 6087 #### [facility] [address], [place] [address] Tenisha Vizcarra M.D. [id number] LDL CHOLESTEROL CALCULATED 102 mg/dL Normal 10-130 [facility] Comment on above: Result Comment: [facility] Cholesterol Education Program Guidelines: LDL Cholesterol Optimal: <100 mg/dL Near Optimal/above Optimal: 100-129 mg/dL Borderline High: 130-159 mg/dL High: 160-189 mg/dL Very High: greater than or equal to 190 mg/dL Performed By: #### 4 6087 #### [facility] [address], [place] [address] Tenisha Vizcarra M.D. [id number] NON HDL CHOL 113 mg/dL Normal [facility] Comment on above: Result Comment: [facility]: NON HDL Cholesterol Desirable: <130 mg/dL Borderline High: 130-159 mg/dL High: 160-189 mg/dL Very High: > or = 190 mg/dL Performed By: #### 4 6087 #### [facility] [address], [place] [address] Tenisha Vizcarra M.D. [id number] Triglyceride [Mass/Vol] 57 mg/dL Normal 30-150 [facility] Comment on above: Performed By: #### 4 6087 #### [facility] [address] [address] Tenisha Vizcarra M.D. [id number] US BREAST RIGHT LIMITEDon US BREAST RIGHT [...] FriOct 17, 2023 5:25:41 PM EDT Normal [facility] Comment on above: Order Comment: Flash coffey in [place]. Injury/Trauma or Illness?:Illness/Other How long have you had these symptoms (acute/chronic)?:Unknown Reason for exam?:mastitis Type of Exam?:Subsequent/Follow-up Additional signs and symptoms?:none MM FOLLOW UP POST CLIP PLACE Tomer 07-01-2023 MM FOLLOW UP POST CLIP PLACEMENT [...] results are concordant with the imaging findings. [facility] Workstation ID: [id number] Dictated by: CATRACHITO CUBA Transcribed by: DANIEL CALLAWAY on FriJul 01, 2023 9:21:59 AM EST Finalized by: CATRACHITO CUBA on FriJul 01, 2023 9:57:03 AM EST Normal [facility] US BREAST BIOPSY RIGHTon US BREAST [...] mammogram. Code ZW - Awaiting further pathology. [facility]/ Workstation ID: [id number] Addended: FriJul 03, 2023 9:22 AM by Catrachito Cuba MD ADDENDUM: Pathology - Right breast, 1 o'clock zone A, ultrasound-guided core biopsy: Actively inflamed duct compatible with mastitis. Pathology results are concordant with the imaging findings. [facility] Workstation ID: [id number] Dictated by: CATRACHITO CUBA on FriJul 01, 2023 8:44:54 AM EST Transcribed by: DANIEL CALLAWAY on FriJul 01, 2023 9:21:59 AM EST Finalized by: CATRACHITO CUBA on FriJul 01, 2023 9:57:03 AM EST Normal [facility] Comment on above: Order Comment: Injur [...] results are concordant with the imaging findings. [facility] Workstation ID: [id number] Dictated by: CATRACHITO CUBA on FriJul 01, 2023 8:44:54 AM EST Transcribed by: DANIEL CALLAWAY on FriJul 01, 2023 9:21:59 AM EST Finalized by: CATRACHITO CUBA on FriJul 01, 2023 9:57:03 AM EST Normal [facility] MR BREAST BILATERAL WITH AND WITHOUT [...] Dotarem intravenously administered in a single dosage. Collections CAD utilized in the interpretation of this [...] FriJun 18, 2023 8:38:37 AM EST Normal [facility] Comment on above: Order Comment: Injur [...] sent to the patient regarding the results. [employer] Workstation ID: [id number] Dictated by: NAEL MCCRAY on FriApr 11, 2023 2:41:42 PM EST Transcribed by: LAVERNE JALLOH on FriApr 11, 2023 4:07:44 PM EST Finalized by: NAEL MCCRAY on FriApr 11, 2023 4:35:14 PM EST Normal [facility] US BREAST BILAT LIMITEDon US BREAST [...] sent to the patient regarding the results. [employer] Workstation ID: [id number] Dictated by: NAEL MCCRAY on FriApr 11, 2023 2:41:42 PM EST Transcribed by: LAVERNE JALLOH on FriApr 11, 2023 4:07:44 PM EST Finalized by: ANEL MCCRAY on FriApr 11, 2023 4:35:14 PM EST Normal [facility] Comment on above: Order Comment: Injur [...] Sat Dec 09, 2020 2:40:07 AM EDT [facility] Comment on above: Order Comment: Injur [...] 2. No biliary duct dilatation or gallstones. [employer] Workstation ID: [id number] Dictated by: BEBA FRANK on Sat Dec 09, 2020 3:02:22 AM EDT Transcribed by: KWAKU JALLOH on Sat Dec 09, 2020 5:26:22 AM EDT Finalized by: BEBA FRANK on Sat Dec 09, 2020 6:43:30 AM EDT Normal [facility] Comment on above: Order Comment: US Ga llbladder Injury/Trauma or Illness?:Illness/Other How long have you had these symptoms (acute/chronic)?:Acute Reason for exam?:ruq pain; nausea; vomiting History of cancer?:na Surgeries, chemotherapy, or radiation?:na Type of Exam?:Ongoing CT DATED TODAY Additional signs and symptoms?:NONE [facility] LUMBAR WITHOUT CONTRAST EXAMINATION: [...] secondary to a diffuse disc bulge. Normal [facility] CT SPINE THORACIC WITHOUT CO [...] appear clear. IMPRESSION: No acute findings. Normal [facility] CT SPINE LUMBAR WITHOUT CONT RASTon 12-05-2019 IMPRESSION: 1. No acute fracture or dislocation of the lumbar spine is seen. 2. There is mild to moderate right and mild left neural foraminal narrowing at L4-L5 secondary to a diffuse disc bulge. [facility] EXAMINATION: CT SPIN E LUMBAR WITHOUT [...] to be any significant spinal canal stenosis. [employer], Interfaces - 12/05/2019 11:48 PM EDT [...] L4-L5 secondary to a diffuse disc bulge. [employer] CT SPINE THORACIC WITHOUT CO NTRASTon 12-05-2019 IMPRESSION: No acute findings. [employer] EXAMINATION: CT SPIN E THORACIC WITHOUT CONTRAST [...] Imaged portions of the lungs appear clear. [employer] User, Interfaces - 12/05/2019 11:39 PM EDT [...] appear clear. IMPRESSION IMPRESSION: No acute findings. [facility] CBCon 06-25-2019 ABSOLUTE BAS 0.1 10*3/uL Normal 0.0-0.2 [facility] Comment on above: Performed By: #### A CBC #### Testing performed at [address] [address] ABSOLUTE EOS 0.10 10*3/uL Normal 0.0-0.7 [facility] Comment on above: Performed By: #### A CBC #### Testing performed at [address] [address] ABSOLUTE NEUTROPHIL COUNT 6.1 10*3/uL Normal 1.4-6.5 [facility] Comment on above: Performed By: #### A CBC #### Testing performed at [address] [address] Basophils/100 WBC (Bld) 0.7 % Normal 0.0-2.0 [facility] Comment on above: Performed By: #### A CBC #### Testing performed at [address] [place] [address] DTYPE AUTO DIFF Normal [facility] Comment on above: Performed By: #### A CBC #### Testing performed at [address] [address] Eosinophils/100 WBC (Bld) 1.4 % Normal 0.0-11.0 [facility] Comment on above: Performed By: #### A CBC #### Testing performed at [address] [address] Lymphocytes (Bld) [#/Vol] 2.40 10*3/uL Normal 1.2-3.4 [facility] Comment on above: Performed By: #### A CBC #### Testing performed at [address] [place] [address] Lymphocytes/100 WBC (Bld) 26.2 % Normal 20.0-55.0 [facility] Comment on above: Performed By: #### A CBC #### Testing performed at [address] [address] Monocytes (Bld) [#/Vol] 0.6 10*3/uL Normal 0.0-0.7 [facility] Comment on above: Performed By: #### A CBC #### Testing performed at [address] [address] Monocytes/100 WBC (Bld) 6.1 % Normal 0.0-10.0 [facility] Comment on above: Performed By: #### A CBC #### Testing performed at [address] [address] Neutrophils/100 WBC (Bld) 65.6 % Normal 37.0-75.0 [facility] Comment on above: Performed By: #### A CBC #### Testing performed at [address] [address] Erythrocyte distribution width (RBC) [Ratio] 15.5 % High 11.5-14.5 [facility] Comment on above: Performed By: #### A CBC #### Testing performed at [address] [address] Hematocrit (Bld) [Volume fraction] 41.4 % Normal 36.0-48.0 [facility] Comment on above: Performed By: #### A CBC #### Testing performed at [address] [address] Hemoglobin (Bld) [Mass/Vol] 14.1 g/dL Normal 12.0-16.0 [facility] Comment on above: Performed By: #### A CBC #### Testing performed at [address] [address] MCH (RBC) [Entitic mass] 30.9 pg Normal 26.0-35.0 [facility] Comment on above: Performed By: #### A CBC #### Testing performed at [address] [address] MCHC (RBC) [Mass/Vol] 34.1 g/dL Normal 27.0-37.0 [facility] Comment on above: Performed By: #### A CBC #### Testing performed at [address] [address] MCV (RBC) [Entitic vol] 90.4 fL Normal 80.0-100.0 [facility] Comment on above: Performed By: #### A CBC #### Testing performed at [address] [address] Platelet mean volume (Bld) [Entitic vol] 8.2 fL Normal 7.4-11.0 [facility] Comment on above: Performed By: #### A CBC #### Testing performed at [address] [address] Platelets (Bld) [#/Vol] 350 10*3/uL Normal 130.0-400.0 [facility] Comment on above: Performed By: #### A CBC #### Testing performed at [address] [address] RBC (Bld) [#/Vol] 4.58 10*6/uL Normal 4.0-5.4 [facility] Comment on above: Performed By: #### A CBC #### Testing performed at [address] [address] WBC (Bld) [#/Vol] 9.3 10*3/uL Normal 3.6-11.0 [facility] Comment on above: Performed By: #### A CBC #### Testing performed at [address] [address] CBC, EDIF, [employer] 2019 ABSOLUTE BASOPHIL COUNT 0.1 10*3/uL 0 - 0.2 10*3/uL [facility] Basophils/100 WBC (Bld) 0.7 % 0 - 2 % [facility] Differential cell count method Nom (Bld) AUTO DIFF % [facility] [facility] Eosinophils (Bld) [#/Vol] 0.10 10*3/uL 0 - 0.7 10*3/uL [facility] Eosinophils/100 WBC (Bld) 1.4 % 0 - 11 % [facility] Erythrocyte distribution width (RBC) [Ratio] 15.5 % High 11.5 - 14.5 % [facility] Hematocrit (Bld) [Volume fraction] 41.4 % 36 - 48 % [facility] Hemoglobin (Bld) [Mass/Vol] 14.1 g/dL [facility] Interpretation and review of laboratory results Abnormal [facility] Lymphocytes (Bld) [#/Vol] 2.40 10*3/uL 1.2 - 3.4 10*3/uL [facility] Lymphocytes/100 WBC (Bld) 26.2 % 20 - 55 % [facility] MCH (RBC) [Entitic mass] 30.9 pg 26 - 35 PG [facility] MCHC (RBC) [Mass/Vol] 34.1 g/dL [facility] MCV (RBC) [Entitic vol] 90.4 fL [facility] Monocytes (Bld) [#/Vol] 0.6 10*3/uL 0 - 0.7 10*3/uL [facility] Monocytes/100 WBC (Bld) 6.1 % 0 - 10 % [facility] Neutrophils (Bld) [#/Vol] 6.1 10*3/uL 1.4 - 6.5 10*3/uL [facility] Neutrophils/100 WBC (Bld) 65.6 % 37 - 75 % [facility] Platelet mean volume (Bld) [Entitic vol] 8.2 fL [facility] Platelets (Bld) [#/Vol] 350 10*3/uL 130 - 400 10*3/uL [facility] RBC (Bld) [#/Vol] 4.58 10*6/uL 4 - 5.4 10*6/uL [facility] WBC (Bld) [#/Vol] 9.3 10*3/uL 3.6 - 11 10*3/uL [facility] CMP FASTINGon 06-25-2019 A:G RATIO 1.3 RATIO Normal 1.3-2.2 [facility] Comment on above: Performed By: #### A CBC #### Testing performed at [address] [address] Albumin [Mass/Vol] 4.5 G/dl Normal 3.5-5.0 [facility] Comment on above: Performed By: #### A CBC #### Testing performed at [address] [address] ALP [Catalytic activity/Vol] 76 U/L Normal 38-126 [facility] Comment on above: Performed By: #### A CBC #### Testing performed at [address] [address] ALT [Catalytic activity/Vol] 32 U/L Normal 9-52 [facility] Comment on above: Performed By: #### A CBC #### Testing performed at [address] [address] AST [Catalytic activity/Vol] 23 U/L Normal 14-36 [facility] Comment on above: Performed By: #### A CBC #### Testing performed at [address] [address] Bilirubin [Mass/Vol] 0.3 mg/dL Normal 0.2-1.3 [facility] Comment on above: Performed By: #### A CBC #### Testing performed at [address] [address] Calcium [Mass/Vol] 9.2 mg/dL Normal 8.4-10.2 [facility] Comment on above: Performed By: #### A CBC #### Testing performed at [address] [address] Chloride [Moles/Vol] 101 mmol/L Normal 98-107 [facility] Comment on above: Result Comment: Ryan berg note: Triglyceride levels of 600mg/dL or higher may positively bias chloride results by approximately 2.1 mmol Performed By: #### A CBC #### Testing performed at [place] [address] [place] [address] CO2 [Moles/Vol] 26 mmol/L Normal 22-30 [facility] Comment on above: Performed By: #### A CBC #### Testing performed at [address] [address] Creatinine [Mass/Vol] 0.71 mg/dL Normal 0.7-1.2 [facility] Comment on above: Performed By: #### A CBC #### Testing performed at [address] [address] EST. GFR, >60 Normal [facility] Comment on above: Performed By: #### A CBC #### Testing performed at [address] [address] EST. GFR,Non >60 Normal [facility] Comment on above: Performed By: #### A CBC #### Testing performed at [address] [address] GFR/1.73 sq M predicted among non-blacks MDRD (S/P/Bld) [Vol rate/Area] Average GFR for 30-39 years old = 109. 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 Kidney failure, GFR = <15. The GFR estimate is not adjusted for extreme body surface area or acute process, nor has it been validated for women or ethnic groups other than and . Performed By: #### A CBC #### Testing performed at [address] [address] Glucose [Mass/Vol] 74 mg/dL Normal 70-100 [facility] Comment on above: Result Comment: NORMAL <100 mg/dL PREDIABETES 101-126 mg/dL DIABETES 126 mg/dL or higher Performed By: #### A CBC #### Testing performed at [address] [address] Potassium [Moles/Vol] 4.0 mmol/L Normal 3.5-5.1 [facility] Comment on above: Performed By: #### A CBC #### Testing performed at [place] [id number] Protein [Mass/Vol] 8.1 g/dL Normal 6.3-8.2 [facility] Comment on above: Performed By: #### A CBC #### Testing performed at [place] [id number] Sodium [Moles/Vol] 138 mmol/L Normal 137-145 [facility] Comment on above: Performed By: #### A CBC #### Testing performed at [place] [id number] Urea nitrogen [Mass/Vol] 17 mg/dL Normal 7-20 [facility] Comment on above: Performed By: #### A CBC #### Testing performed at [place] [id number] COMPREHENSIVE METABOLIC PANE [facility] 06-25-2019 Albumin [Mass/Vol] 4.5 G/dl 3.5 - 5 G/dl [facility] Albumin/Globulin [Mass ratio] 1.3 {ratio} [facility] ALP [Catalytic activity/Vol] 76 U/L [facility] ALT [Catalytic activity/Vol] 32 U/L [facility] AST [Catalytic activity/Vol] 23 U/L [facility] Bilirubin [Mass/Vol] 0.3 mg/dL [facility] Calcium [Mass/Vol] 9.2 mg/dL [facility] Chloride [Moles/Vol] 101 mmol/L [facility] Comment on above: Please note: Triglyc eride levels of 600mg/dL or higher may positively bias chloride results by approximately 2.1 mmol CO2 [Moles/Vol] 26 mmol/L [facility] Creatinine [Mass/Vol] 0.71 mg/dL [facility] GFR/1.73 sq M predicted among blacks MDRD (S/P/Bld) [Vol rate/Area] mL/min/{1.73_m2} ml/min/1.73sq. m [facility] GFR/1.73 sq M predicted among non-blacks MDRD (S/P/Bld) [Vol rate/Area] mL/min/{1.73_m2} ml/min/1.73sq. m [facility] GFR/1.73 sq M predicted among non-blacks MDRD (S/P/Bld) [Vol rate/Area] Average GFR for 30-39 years old = 109. [facility] Comment on above: Chronic Kidney disea se, GFR = <60. Kidney failure, GFR = <15. The GFR estimate is not adjusted for extreme body surface area or acute process, nor has it been validated for women or ethnic groups other than and . Glucose post fast [Mass/Vol] 74 mg/dL [facility] Comment on above: NORMAL <100 mg/dL PREDIABETES 101-126 mg/dL DIABETES 126 mg/dL or higher Potassium [Moles/Vol] 4.0 mmol/L [facility] Protein [Mass/Vol] 8.1 g/dL [facility] Sodium [Moles/Vol] 138 mmol/L [facility] Urea nitrogen [Mass/Vol] 17 mg/dL [facility] CBCon 01-19-2019 ABSOLUTE BAS 0.1 10*3/uL Normal 0.0-0.2 [facility] ABSOLUTE EOS 0.20 10*3/uL Normal 0.0-0.7 [facility] ABSOLUTE NEUTROPHIL COUNT 6.6 10*3/uL High 1.4-6.5 [facility] Basophils/100 WBC (Bld) 0.6 % Normal 0.0-2.0 [facility] DTYPE AUTO DIFF Normal [facility] Eosinophils/100 WBC (Bld) 1.6 % Normal 0.0-11.0 [facility] Lymphocytes (Bld) [#/Vol] 2.80 10*3/uL Normal 1.2-3.4 [facility] Lymphocytes/100 WBC (Bld) 27.1 % Normal 20.0-55.0 [facility] Monocytes (Bld) [#/Vol] 0.6 10*3/uL Normal 0.0-0.7 [facility] Monocytes/100 WBC (Bld) 5.9 % Normal 0.0-10.0 [facility] Neutrophils/100 WBC (Bld) 64.8 % Normal 37.0-75.0 [facility] Erythrocyte distribution width (RBC) [Ratio] 14.5 % Normal 11.5-14.5 [facility] Hematocrit (Bld) [Volume fraction] 41.6 % Normal 36.0-48.0 [facility] Hemoglobin (Bld) [Mass/Vol] 14.4 g/dL Normal 12.0-16.0 [facility] MCH (RBC) [Entitic mass] 31.2 pg Normal 26.0-35.0 [facility] MCHC (RBC) [Mass/Vol] 34.6 g/dL Normal 27.0-37.0 [facility] MCV (RBC) [Entitic vol] 90.1 fL Normal 80.0-100.0 [facility] Platelet mean volume (Bld) [Entitic vol] 8.3 fL Normal 7.4-11.0 [facility] Platelets (Bld) [#/Vol] 305 10*3/uL Normal 130.0-400.0 [facility] RBC (Bld) [#/Vol] 4.62 10*6/uL Normal 4.0-5.4 [facility] WBC (Bld) [#/Vol] 10.2 10*3/uL Normal 3.6-11.0 [facility] CMP FASTINGon 01-19-2019 A:G RATIO 1.1 RATIO Low 1.3-2.2 [facility] Albumin [Mass/Vol] 4.0 G/dl Normal 3.5-5.0 [facility] ALP [Catalytic activity/Vol] 83 U/L Normal 38-126 [facility] ALT [Catalytic activity/Vol] 30 U/L Normal 9-52 [facility] AST [Catalytic activity/Vol] 28 U/L Normal 14-36 [facility] Bilirubin [Mass/Vol] 0.4 mg/dL Normal 0.2-1.3 [facility] Calcium [Mass/Vol] 9.4 mg/dL Normal 8.4-10.2 [facility] Chloride [Moles/Vol] 103 mmol/L Normal 98-107 [facility] Comment on above: Result Comment: Ryan berg note: Triglyceride levels of 600mg/dL or higher may positively bias chloride results by approximately 2.1 mmol CO2 [Moles/Vol] 27 mmol/L Normal 22-30 [facility] Creatinine [Mass/Vol] 0.71 mg/dL Normal 0.7-1.2 [facility] EST. GFR, >60 Normal [facility] EST. GFR,Non >60 Normal [facility] GFR/1.73 sq M predicted among non-blacks MDRD (S/P/Bld) [Vol rate/Area] Average GFR for 30-39 years old = 109. 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 Kidney failure, GFR = <15. The GFR estimate is not adjusted for extreme body surface area or acute process, nor has it been validated for women or ethnic groups other than and . Glucose [Mass/Vol] 106 mg/dL High 70-100 [facility] Comment on above: Result Comment: NORMAL <100 mg/dL PREDIABETES 101-126 mg/dL DIABETES 126 mg/dL or higher Potassium [Moles/Vol] 3.7 mmol/L Normal 3.5-5.1 [facility] Protein [Mass/Vol] 7.6 g/dL Normal 6.3-8.2 [facility] Sodium [Moles/Vol] 139 mmol/L Normal 137-145 [facility] Urea nitrogen [Mass/Vol] 12 mg/dL Normal 7-20 [facility] LIPID PROFILEon 01-19-2019 Cholesterol [Mass/Vol] 149 mg/dL Normal 107-217 [facility] Cholesterol in HDL [Mass/Vol] 33 mg/dL Normal 33-75 [facility] Cholesterol in LDL [Mass/Vol] 106 mg/dL Normal [facility] Cholesterol in VLDL [Mass/Vol] 10 mg/dL Normal 5.0-25 [facility] Cholesterol.total/Ch olesterol in HDL [Mass ratio] 4.52 {ratio} Normal [facility] Comment on above: Result Comment: RISK TOTAL/HDL RATIO MEN WOMEN 1/2 AVERAGE 3.43 3.27 AVERAGE 4.97 4.44 2X AVERAGE 9.55 7.05 3X AVERAGE 23.99 11.04 Triglyceride [Mass/Vol] 50 mg/dL Normal 0-150 [facility] TSH,REFLEX FREE T4on 019 TSH,REFLEX FREE T4 2.420 uIU/ML Normal 0.46-4.68 [facility] XR FOOT RIGHT 3+ VIEWS [...] consideration. 3. No acute fracture or dislocation. [employer] Workstation ID: [id number] Dictated by: BRIT RIVERA on FriOct 13, 2018 11:33:21 AM EDT Transcribed by: ABDIRIZAK FERNANDEZ on FriOct 13, 2018 11:39:27 AM EDT Finalized by: BRIT RIVERA on FriOct 13, 2018 3:49:26 PM EDT [facility] Comment on above: Order Comment: Injur y/Trauma or Illness?:Injury/Trauma How long have you had these symptoms (acute/chronic)?:Acute Reason for exam?:pain History of cancer?:na Surgeries, chemotherapy, or radiation?:na Type of Exam?:Initial Mechanism of injury?:running on treadmill Vital Signs Date Time Vital Sign Value Performing Clinician Facility 05-13-2024 14:47-0500 Body mass index (BMI) [Ratio] 55.24 kg/m2 Harper Rosales PA Work Phone: [facility] 05-13-2024 14:47-0500 Body weight 136.99 kg Harper Modesto PA Work Phone: [facility] 05-13-2024 14:47-0500 Diastolic blood pressure 82 mm[Hg] Harper Modesto PA Work Phone: [facility] 05-13-2024 14:47-0500 Systolic blood pressure 130 mm[Hg] Harper Modesto PA Work Phone: [facility] 04-07-2024 11:55-0500 Body mass index (BMI) [Ratio] 39.69 kg/m2 Harper Modesto PA Work Phone: [facility] 04-07-2024 11:55-0500 Body weight 98.43 kg Harper Modesto PA Work Phone: [facility] 04-07-2024 11:55-0500 Diastolic blood pressure 72 mm[Hg] Harper Connie PA Work Phone: [facility] 04-07-2024 11:55-0500 Systolic blood pressure 122 mm[Hg] Harper Modesto PA Work Phone: [facility] 03-02-2024 10:41-0500 Body mass index (BMI) [Ratio] 55.02 kg/m2 Hawk Héctor DO Work Phone: [facility] 03-02-2024 10:41-0500 Body weight 136.44 kg Hawk Héctor DO Work Phone: [facility] 03-02-2024 10:41-0500 Diastolic blood pressure 76 mm[Hg] Hawk Héctor DO Work Phone: [facility] 03-02-2024 10:41-0500 Systolic blood pressure 118 mm[Hg] Hawk Héctor DO Work Phone: [facility] 01-20-2024 10:19-0400 Body mass index (BMI) [Ratio] 53.92 kg/m2 Hawk Héctor DO Work Phone: [facility] 01-20-2024 10:19-0400 Body weight 133.72 kg Hawk Héctor DO Work Phone: [facility] 01-20-2024 10:19-0400 Diastolic blood pressure 58 mm[Hg] Hawk Héctor DO Work Phone: [facility] 01-20-2024 10:19-0400 Systolic blood pressure 110 mm[Hg] Hawk Héctor DO Work Phone: [facility] 01-12-2024 10:02-0400 Body height 157.5 cm Alyssa Prakash CNP Work Phone: [facility] 01-12-2024 10:02-0400 Body mass index (BMI) [Ratio] 53.48 kg/m2 Alyssa Prakash CNP Work Phone: [facility] 01-12-2024 10:02-0400 Body weight 132.63 kg Alyssa Prakash CNP Work Phone: [facility] Comment on above: ACTUAL WEIGHT 12-30-2023 14:04-0400 Body height 157.5 cm Hawk Héctor DO Work Phone: [facility] 12-30-2023 14:04-0400 Body mass index (BMI) [Ratio] 53.59 kg/m2 Hawk Héctor DO Work Phone: [facility] 12-30-2023 14:04-0400 Body weight 132.9 kg Hawk Héctor DO Work Phone: [facility] 12-30-2023 14:04-0400 Diastolic blood pressure 82 mm[Hg] Hawk Héctor DO Work Phone: [facility] 12-30-2023 14:04-0400 Systolic blood pressure 120 mm[Hg] Hawk Héctor DO Work Phone: [facility] 12-15-2023 13:23-0400 Body weight 135.35 kg Hawk Héctor DO Work Phone: [facility] 12-15-2023 13:23-0400 Diastolic blood pressure 78 mm[Hg] Hawk Héctor DO Work Phone: [facility] 12-15-2023 13:23-0400 Systolic blood pressure 118 mm[Hg] Hawk Héctor DO Work Phone: [facility] 08-19-2023 09:00-0400 Diastolic blood pressure 91 mm[Hg] Ariana Conniff PA-C Work Phone: [facility] 08-19-2023 09:00-0400 Systolic blood pressure 129 mm[Hg] Ariana Conniff PA-C Work Phone: [facility] 08-19-2023 08:38-0400 Body height 157.5 cm Ariana Conniff PA-C Work Phone: [facility] 08-19-2023 08:38-0400 Body mass index (BMI) [Ratio] 54.43 kg/m2 Ariana Conniff PA-C Work Phone: [facility] 08-19-2023 08:38-0400 Body weight 134.99 kg Ariana Conniff PA-C Work Phone: [facility] 08-19-2023 08:38-0400 Heart rate 86 /min Ariana Conniff PA-C Work Phone: [facility] 08-19-2023 08:38-0400 SaO2% (BldA) [Mass fraction] 97 % Ariana Conniff PA-C Work Phone: [facility] 05-14-2023 10:15-0500 Body height 157.5 cm Ashley Mcdaniel III, MD Work Phone: [facility] 05-14-2023 10:15-0500 Body mass index (BMI) [Ratio] 54.29 kg/m2 Ashley Mcdaniel III, MD Work Phone: [facility] 05-14-2023 10:15-0500 Body weight 134.63 kg Ashley Mcdaniel III, MD Work Phone: [facility] 05-14-2023 10:15-0500 Diastolic blood pressure 83 mm[Hg] Ashley Mcdaniel III, MD Work Phone: [facility] 05-14-2023 10:15-0500 Heart rate 95 /min Ashley Mcdaniel III, MD Work Phone: [facility] 05-14-2023 10:15-0500 SaO2% (BldA) [Mass fraction] 95 % Ashley Mcdaniel III, MD Work Phone: [facility] 05-14-2023 10:15-0500 Systolic blood pressure 139 mm[Hg] Ashley Mcdaniel III, MD Work Phone: [facility] 04-01-2023 10:01-0500 Diastolic blood pressure 90 mm[Hg] Ariana Conniff PA-C Work Phone: [facility] 04-01-2023 10:01-0500 Systolic blood pressure 128 mm[Hg] Ariana Conniff PA-C Work Phone: [facility] 04-01-2023 09:40-0500 Body height 157.5 cm Ariana Conniff PA-C Work Phone: [facility] 04-01-2023 09:40-0500 Body mass index (BMI) [Ratio] 53.96 kg/m2 Ariana Conniff PA-C Work Phone: [facility] 04-01-2023 09:40-0500 Body weight 133.81 kg Ariana Conniff PA-C Work Phone: [facility] 04-01-2023 09:40-0500 Heart rate 96 /min Ariana Conniff PA-C Work Phone: [facility] 04-01-2023 09:40-0500 SaO2% (BldA) [Mass fraction] 94 % Ariana Conniff PA-C Work Phone: [facility] 01-23-2023 09:44-0400 Body height 157.5 cm Ariana Conniff PA-C Work Phone: [facility] 01-23-2023 09:44-0400 Body mass index (BMI) [Ratio] 53.41 kg/m2 Ariana Conniff PA-C Work Phone: [facility] 01-23-2023 09:44-0400 Body weight 132.45 kg Ariana Conniff PA-C Work Phone: [facility] 01-23-2023 09:44-0400 Diastolic blood pressure 88 mm[Hg] Arinaa Conniff PA-C Work Phone: [facility] 01-23-2023 09:44-0400 Heart rate 91 /min Ariana Conniff PA-C Work Phone: [facility] 01-23-2023 09:44-0400 SaO2% (BldA) [Mass fraction] 98 % Ariana Conniff PA-C Work Phone: [facility] 01-23-2023 09:44-0400 Systolic blood pressure 120 mm[Hg] Ariana Conniff PA-C Work Phone: [facility] 09-04-2022 09:14-0400 Diastolic blood pressure 80 mm[Hg] Ariana Conniff PA-C Work Phone: [facility] 09-04-2022 09:14-0400 Systolic blood pressure 121 mm[Hg] Ariana Conniff PA-C Work Phone: [facility] 09-04-2022 08:56-0400 Body height 157.5 cm Ariana Conniff PA-C Work Phone: [facility] 09-04-2022 08:56-0400 Body mass index (BMI) [Ratio] 53.22 kg/m2 Ariana Conniff PA-C Work Phone: [facility] 09-04-2022 08:56-0400 Body weight 132 kg Ariana Conniff PA-C Work Phone: [facility] 09-04-2022 08:56-0400 Heart rate 88 /min Ariana Conniff PA-C Work Phone: [facility] 09-04-2022 08:56-0400 SaO2% (BldA) [Mass fraction] 96 % Ariana Conniff PA-C Work Phone: [facility] 05-28-2022 10:51-0500 Body height 157.5 cm Ariana Conniff PA-C Work Phone: [facility] 05-28-2022 10:51-0500 Body mass index (BMI) [Ratio] 52.86 kg/m2 Ariana Conniff PA-C Work Phone: [facility] 05-28-2022 10:51-0500 Body weight 131.09 kg Ariana Conniff PA-C Work Phone: [facility] 05-28-2022 10:51-0500 Diastolic blood pressure 69 mm[Hg] Ariana Conniff PA-C Work Phone: [facility] 05-28-2022 10:51-0500 Heart rate 92 /min Ariana Conniff PA-C Work Phone: [facility] 05-28-2022 10:51-0500 SaO2% (BldA) [Mass fraction] 95 % Ariana Conniff PA-C Work Phone: [facility] 05-28-2022 10:51-0500 Systolic blood pressure 139 mm[Hg] Ariana Conniff PA-C Work Phone: [facility] 03-05-2022 15:41-0500 Body height 157.5 cm Ariana Conniff PA-C Work Phone: [facility] 03-05-2022 15:41-0500 Body mass index (BMI) [Ratio] 54.69 kg/m2 Ariana Conniff PA-C Work Phone: [facility] 03-05-2022 15:41-0500 Body weight 135.63 kg Ariana Conniff PA-C Work Phone: [facility] 03-05-2022 15:41-0500 Diastolic blood pressure 89 mm[Hg] Ariana Conniff PA-C Work Phone: [facility] 03-05-2022 15:41-0500 Heart rate 83 /min Ariana Conniff PA-C Work Phone: [facility] 03-05-2022 15:41-0500 SaO2% (BldA) [Mass fraction] 96 % Ariana Conniff PA-C Work Phone: [facility] 03-05-2022 15:41-0500 Systolic blood pressure 132 mm[Hg] Ariana Conniff PA-C Work Phone: [facility] 02-05-2022 09:38-0400 Diastolic blood pressure 89 mm[Hg] Ariana Conniff PA-C Work Phone: [facility] 02-05-2022 09:38-0400 Systolic blood pressure 140 mm[Hg] Ariana Conniff PA-C Work Phone: [facility] 02-05-2022 08:42-0400 Body height 157.5 cm Ariana Conniff PA-C Work Phone: [facility] 02-05-2022 08:42-0400 Body mass index (BMI) [Ratio] 54.69 kg/m2 Ariana Conniff PA-C Work Phone: [facility] 02-05-2022 08:42-0400 Body weight 135.63 kg Ariana Conniff PA-C Work Phone: [facility] 02-05-2022 08:42-0400 Heart rate 100 /min Ariana Conniff PA-C Work Phone: [facility] 02-05-2022 08:42-0400 SaO2% (BldA) [Mass fraction] 96 % Ariana Conniff PA-C Work Phone: [facility] 10-01-2021 09:28-0400 Body height 157.5 cm Ashley Mcdaniel III, MD Work Phone: [facility] 10-01-2021 09:28-0400 Body mass index (BMI) [Ratio] 53.55 kg/m2 Ashley Mcdaniel III, MD Work Phone: [facility] 10-01-2021 09:28-0400 Body weight 132.81 kg Ashley Mcdaniel III, MD Work Phone: [facility] 10-01-2021 09:28-0400 Diastolic blood pressure 88 mm[Hg] Ashley Mcdaniel III, MD Work Phone: [facility] 10-01-2021 09:28-0400 Heart rate 87 /min Ashley Mcdaniel III, MD Work Phone: [facility] 10-01-2021 09:28-0400 SaO2% (BldA) [Mass fraction] 96 % Ashley Mcdaniel III, MD Work Phone: [facility] 10-01-2021 09:28-0400 Systolic blood pressure 128 mm[Hg] Ashley Mcdaniel III, MD Work Phone: [facility] 09-10-2021 11:02-0400 Body height 157.5 cm Priya Jorge ASSET ANALYST Work Phone: [facility] 09-10-2021 11:02-0400 Body mass index (BMI) [Ratio] 52.57 kg/m2 Priyamarcela Jorge ASSET ANALYST Work Phone: [facility] 09-10-2021 11:02-0400 Body weight 130.36 kg Priya Zamorayon ASSET ANALYST Work Phone: [facility] 09-10-2021 11:02-0400 Diastolic blood pressure 94 mm[Hg] Priya Ania ASSET ANALYST Work Phone: [facility] 09-10-2021 11:02-0400 Heart rate 89 /min Priya Ania ASSET ANALYST Work Phone: [facility] 09-10-2021 11:02-0400 Systolic blood pressure 139 mm[Hg] Priya Jorge ASSET ANALYST Work Phone: [facility] 08-04-2020 10:[id number] BMI (Body Mass Index) 47.47 kg/m2 [facility] 08-04-2020 [id number]:[id number] Body Temperature 98.2 [degF] [facility] 08-04-2020 10:0400 Body weight 121.56 kg [facility] 08-04-2020 10:260400 BP Diastolic 87 mm[Hg] [facility] 08-04-2020 10:260400 BP Systolic 133 mm[Hg] [facility] 08-04-2020 10:0400 Height 160 cm [facility] 08-04-2020 10:[id number] Pulse (Heart Rate) 79 /min [facility] 08-04-2020 10:[id number] Pulse Oximetry 96 % [facility] 12-14-2019 09:32-0400 BMI (Body Mass Index) 49.19 kg/m2 [facility] 12-14-2019 09:32-0400 Body Temperature 98.1 [degF] [facility] 12-14-2019 09:32-0400 Body weight 134.08 kg [facility] 12-14-2019 09:32-0400 BP Diastolic 88 mm[Hg] [facility] 12-14-2019 09:32-0400 BP Systolic 130 mm[Hg] [facility] 12-14-2019 09:32-0400 Height 165.1 cm [facility] 12-14-2019 09:32-0400 Pulse (Heart Rate) 95 /min [facility] 12-14-2019 09:32-0400 Pulse Oximetry 96 % [facility] 12-07-2019 10:33-0400 BMI (Body Mass Index) 49.34 kg/m2 [facility] 12-07-2019 10:33-0400 Body Temperature 98.8 [degF] [facility] 12-07-2019 10:33-0400 Body weight 133.36 kg [facility] 12-07-2019 10:33-0400 BP Diastolic 74 mm[Hg] [facility] 12-07-2019 10:33-0400 BP Systolic 126 mm[Hg] [facility] 12-07-2019 10:33-0400 Height 164.4 cm [facility] 12-07-2019 10:33-0400 Pulse (Heart Rate) 84 /min [facility] 12-07-2019 10:33-0400 Pulse Oximetry 97 % [facility] 12-07-2019 10:33-0400 Respiratory Rate 14 /min [facility] 12-06-2019 00:21-0400 BP Diastolic 92 mm[Hg] [facility] 12-06-2019 00:21-0400 BP Systolic 138 mm[Hg] [facility] 12-06-2019 00:21-0400 Pulse (Heart Rate) 88 /min [facility] 12-06-2019 00:21-0400 Respiratory Rate 18 /min [facility] 12-05-2019 21:32-0400 Body Temperature 99.1 [degF] [facility] 12-05-2019 21:32-0400 Pulse Oximetry 97 % [facility] 06-25-2019 13:18-0500 BMI (Body Mass Index) 49.86 kg/m2 [facility] 06-25-2019 13:18-0500 Body Temperature 98.1 [degF] [facility] 06-25-2019 13:18-0500 Body weight 123.65 kg [facility] 06-25-2019 13:18-0500 BP Diastolic 82 mm[Hg] [facility] 06-25-2019 13:18-0500 BP Systolic 160 mm[Hg] [facility] 06-25-2019 13:18-0500 Height 157.5 cm [facility] 06-25-2019 13:18-0500 Pulse (Heart Rate) 85 /min [facility] 06-25-2019 13:18-0500 Pulse Oximetry 98 % [facility] 06-25-2019 13:18-0500 Respiratory Rate 14 /min [facility] 06-10-2019 08:16-0500 BMI (Body Mass Index) 49.35 kg/m2 [facility] 06-10-2019 08:16-0500 Body Temperature 97.39 [degF] [facility] 06-10-2019 08:16-0500 Body weight 122.38 kg [facility] 06-10-2019 08:16-0500 BP Diastolic 80 mm[Hg] [facility] 06-10-2019 08:16-0500 BP Systolic 110 mm[Hg] [facility] 06-10-2019 08:16-0500 Height 157.5 cm [facility] 06-10-2019 08:16-0500 Pulse (Heart Rate) 94 /min [facility] 06-10-2019 08:16-0500 Pulse Oximetry 97 % [facility] 06-10-2019 08:16-0500 Respiratory Rate 14 /min [facility] 03-17-2019 09:02-0500 BMI (Body Mass Index) 49.49 kg/m2 [facility] 03-17-2019 09:02-0500 Body Temperature 98.1 [degF] [facility] 03-17-2019 09:02-0500 Body weight 122.74 kg [facility] 03-17-2019 09:02-0500 BP Diastolic 74 mm[Hg] [facility] 03-17-2019 09:02-0500 BP Systolic 110 mm[Hg] [facility] 03-17-2019 09:02-0500 Height 157.5 cm [facility] 03-17-2019 09:02-0500 Pulse (Heart Rate) 100 /min [facility] 03-17-2019 09:02-0500 Pulse Oximetry 97 % [facility] 03-17-2019 09:02-0500 Respiratory Rate 16 /min [facility] 01-25-2019 13:10-0400 BMI (Body Mass Index) 51.4 kg/m2 [facility] 01-25-2019 13:10-0400 Body Temperature 98.4 [degF] [facility] 01-25-2019 13:10-0400 Body weight 127.46 kg [facility] 01-25-2019 13:10-0400 BP Diastolic 80 mm[Hg] [facility] 01-25-2019 13:10-0400 BP Systolic 117 mm[Hg] [facility] 01-25-2019 13:10-0400 Height 157.5 cm [facility] 01-25-2019 13:10-0400 Pulse (Heart Rate) 84 /min [facility] 01-25-2019 13:10-0400 Pulse Oximetry 97 % [facility] 01-25-2019 13:10-0400 Respiratory Rate 16 /min [facility] 11-24-2018 13:35-0400 BMI (Body Mass Index) 48.08 kg/m2 [facility] 11-24-2018 13:35-0400 Body Temperature 98.29 [degF] [facility] 11-24-2018 13:35-0400 Body weight 130.91 kg [facility] 11-24-2018 13:35-0400 BP Diastolic 84 mm[Hg] [facility] 11-24-2018 13:35-0400 BP Systolic 108 mm[Hg] [facility] 11-24-2018 13:35-0400 Height 165 cm [facility] 11-24-2018 13:35-0400 Pulse (Heart Rate) 85 /min [facility] 11-24-2018 13:35-0400 Pulse Oximetry 97 % [facility] 11-24-2018 13:35-0400 Respiratory Rate 14 /min Lana Lombardi [facility] 10-13-2018 11:26-0400 BP Diastolic 89 mm[Hg] Yasmin Brown [facility] Comment on above: Rechecked [facility] 10-13-2018 11:26-0400 BP Systolic 142 mm[Hg] Yasmin [facility] Comment on above: Rechecked [facility] 10-13-2018 11:02-0400 BMI (Body Mass Index) 44.99 kg/m2 Yasmin [facility] 10-13-2018 11:02-0400 Body Temperature 98.29 [degF] Yasmin [facility] 10-13-2018 11:02-0400 Height [address] [facility] 10-13-2018 11:02-0400 Pulse (Heart Rate) 84 /min Yasmin [facility] 10-13-2018 11:02-0400 Pulse Oximetry 98 % Yasmin [facility] 10-13-2018 11:02-0400 Respiratory Rate 18 /min Yasmin [facility] 10-13-2018 11:02-0400 Weight [address] [facility] 03-18-2018 23:39-0500 BP Diastolic 77 mm[Hg] [facility] Work Phone: 03-18-2018 23:39-0500 BP Systolic 133 mm[Hg] [facility] Work Phone: 03-18-2018 23:39-0500 Pulse (Heart Rate) 85 /min [facility] Work Phone: 03-18-2018 23:39-0500 Pulse Oximetry 97 % [facility] Work Phone: 03-18-2018 23:39-0500 Respiratory Rate 18 /min [facility] Work Phone: 03-18-2018 22:16-0500 Height 157.5 cm [facility] Work Phone: 03-18-2018 22:14-0500 Body Temperature 98.01 [degF] Tejinder Case [facility] Work Phone: Encounters Encounter Date Encounter Type Care Provider Facility Start: 05-13-2024 End: 05-13-2024 Postop follow up visit related to original px Harper Connie PA Work Phone: [facility] Comment on above: Encounter for postop erative care Start: 05-13-2024 End: 05-13-2024 ambulatory HARPER ROSALES Not Available Start: 05-13-2024 End: 05-13-2024 Bamboo flowsheet Harper Modesto PA Work Phone: [facility] Start: 05-13-2024 End: 05-13-2024 Bamboo flowsheet Harper Connie PA Work Phone: [facility] Start: 04-07-2024 End: 04-07-2024 Bamboo flowsheet Harper Modesto PA Work Phone: [facility] Start: 04-07-2024 End: 04-07-2024 Bamboo flowsheet Harper Modesto PA Work Phone: [facility] Start: 04-07-2024 End: 04-07-2024 Postop follow up visit related to original px Harper Rosales PA Work Phone: [facility] Comment on above: Postoperative visit; S/P D&C (status post dilation and curettage) Start: 04-07-2024 End: 04-07-2024 ambulatory HARPER ROSALES Not Available Start: 03-31-2024 End: 03-31-2024 Clinisync Result Encounter Hawk Héctor DO Work Phone: [facility] Unsolicited Start: 03-31-2024 End: 03-31-2024 Clinisync Result Encounter Hawk Héctor DO Work Phone: [facility] Unsolicited Start: 03-31-2024 End: 03-31-2024 ambulatory Hawk Héctor Facility:[facility] Start: 03-24-2024 End: 03-24-2024 Clinisync Result Encounter Hawk Héctor DO Work Phone: [facility] Unsolicited Start: 03-24-2024 End: 03-24-2024 Clinisync Result Encounter Hawk Héctor DO Work Phone: [facility] Unsolicited Start: 03-02-2024 End: 03-02-2024 Bamboo flowsheet Hawk Héctor DO Work Phone: [facility] Start: 03-02-2024 End: 03-02-2024 Bamboo flowsheet Hawk Héctor DO Work Phone: [facility] Start: 03-02-2024 End: 03-02-2024 Office outpatient visit 15 minutes Hawk Héctor DO Work Phone: [facility] Comment on above: Pre-op examination; Menorrhagia with regular cycle; Pelvic pain in female; Dysmenorrhea; Dyspareunia in female Start: 03-02-2024 End: 03-02-2024 Preprocedural examination done Hawk Héctor DO Work Phone: [facility] Start: 03-02-2024 End: 03-02-2024 ambulatory HAWK HÉCTOR Not Available Start: 02-13-2024 End: 02-13-2024 Clinisync Result Encounter Hawk Héctor DO Work Phone: [facility] Unsolicited Start: 02-13-2024 End: 02-13-2024 Clinisync Result Encounter Hawk Héctor DO Work Phone: [facility] Unsolicited Start: 02-13-2024 End: 02-13-2024 ambulatory Hawk Héctor [facility] Work Phone: Start: 02-13-2024 End: 02-13-2024 Departed Referred DO Hawk Héctor Work Phone: [facility] Start: 01-26-2024 End: 01-26-2024 ambulatory ALYSSA PRAKASH [facility] Start: 01-20-2024 End: 01-27-2024 Clinisync Result Encounter Hawk Héctor DO Work Phone: [facility] Unsolicited Start: 01-20-2024 End: 01-27-2024 Clinisync Result Encounter Hawk Héctor DO Work Phone: [facility] Unsolicited Start: 01-20-2024 End: 01-20-2024 Patient encounter procedure Hawk Héctor DO Work Phone: [facility] Start: 01-20-2024 End: 01-20-2024 Periodic preventive med est patient 18-39 yrs Hawk Héctor DO Work Phone: [facility] Comment on above: Pre-op examination; Well woman exam; Thickened endometrium; Enlarged uterus; Pelvic pain in female; Abnormal uterine bleeding (AUB); Well woman exam with routine gynecological exam Start: 01-20-2024 End: 01-20-2024 Preprocedural examination done Hawk Héctor DO Work Phone: [facility] Start: 01-20-2024 End: 01-20-2024 ambulatory HAWK HÉCTOR Not Available Start: 01-12-2024 End: 01-12-2024 Office outpatient new 45 minutes Alyssa Prakash ASSET ANALYST Work Phone: [facility] Comment on above: Abscess of right ping ast (Primary Dx); Family history of breast cancer Start: 01-12-2024 End: 01-12-2024 ambulatory ARIANA ERIC KAYLA [facility] Ambulatory Start: 12-31-2023 End: 12-31-2023 ambulatory Sasha Alcala Facility:[facility] Start: 12-30-2023 End: 12-30-2023 Bamboo flowsheet Hawk Héctor DO Work Phone: [facility] Start: 12-30-2023 End: 12-30-2023 Bamboo flowsheet Hawk Héctor DO Work Phone: [facility] Start: 12-30-2023 End: 12-30-2023 Office outpatient visit 15 minutes Hawk Héctor DO Work Phone: [facility] Comment on above: Endometrial thickeni ng on ultrasound; Abnormal uterine bleeding (AUB); Irregular periods/menstrual cycles; Pelvic pain in female; Dysmenorrhea Start: 12-30-2023 End: 12-30-2023 ambulatory HAWK HÉCTOR Not Available Start: 12-22-2023 End: 12-22-2023 Clinisync Result Encounter Hawk Héctor DO Work Phone: [facility] External Department Unsolicited Start: 12-22-2023 End: 12-22-2023 Clinisync Result Encounter Hawk Héctor DO Work Phone: [facility] External Department Unsolicited Start: 12-15-2023 End: 01-13-2024 Clinisync Result Encounter Hawk Héctor DO Work Phone: [facility] External Department Unsolicited Start: 12-15-2023 End: 01-13-2024 Clinisync Result Encounter Hawk Héctor DO Work Phone: [facility] External Department Unsolicited Start: 12-15-2023 End: 12-15-2023 Office outpatient visit 15 minutes Hawk Héctor DO Work Phone: [facility] Comment on above: Discharge from right nipple; Irregular periods/menstrual cycles; PCOS (polycystic ovarian syndrome) Start: 12-15-2023 End: 12-15-2023 ambulatory HAWK HÉCTOR Not Available Start: 11-27-2023 End: 11-27-2023 Office outpatient visit 10 minutes Tracy Alejandre MD Work Phone: [facility] Comment on above: Abscess of breast (P rimary Dx); Cellulitis of right breast Start: 11-27-2023 End: 11-27-[facility]23 [facility] Start: 11-06-2023 End: 11-06-2023 Office outpatient visit 15 minutes Tracy Alejandre MD Work Phone: [facility] Comment on above: Abscess of breast (P rimary Dx); Cellulitis of right breast Start: 11-06-2023 End: 11-06-2023 ambulatory ARIANA GARZA [facility] Start: 10-22-2023 End: 10-22-2023 Office outpatient visit 15 minutes Ariana WADEC Work Phone: [facility] Comment on above: Cellulitis of right breast (Primary Dx); History of lump of right breast; Abscess of breast Start: 10-22-2023 End: 10-26-2023 ambulatory ARIANA GARZA [facility] Start: 10-17-2023 End: 10-17-2023 ambulatory ARIANA LEON [facility] Start: 10-17-2023 End: 10-21-2023 ambulatory ARIANAIsaias LEON [facility] Start: 10-16-2023 End: 10-16-2023 Office outpatient visit 15 minutes Nicole Dean PA-C Work Phone: [facility] Comment on above: Cellulitis of right breast (Primary Dx); Mastitis Start: 10-16-2023 End: 10-16-2023 ambulatory NICOLE DEAN [facility] Start: 09-30-2023 End: 09-30-2023 Office outpatient new 30 minutes Tracy Alejandre MD Work Phone: [facility] Comment on above: Mastitis (Primary Dx ) Start: 09-30-2023 End: 09-30-2023 ambulatory TRACY ALEJANDRE II [facility] Start: 08-19-2023 End: 08-19-2023 Office outpatient visit 25 minutes Ariana WADEC Work Phone: [facility] Comment on above: Current moderate epi sode of major depressive disorder without prior episode (HCC) (Primary Dx); Prediabetes; Mastitis Start: 08-19-2023 End: 08-19-2023 ambulatory ARIANA GARZA [facility] Start: 07-03-2023 Coordination of care plan Cheri Hammond RN Patient Navigator Start: 07-03-2023 Documentation procedure Shari Tay CMA [facility] Comment on above: Results Start: 07-01-2023 Coordination of care plan Harper Gaets RN Patient Navigator Start: 07-01-2023 End: 07-02-2023 ambulatory CATRACHITO WHYTE [facility] Start: 06-18-2023 End: 06-18-2023 Orders Only Ashley Mcdaniel MD Work Phone: [facility] General Surgery Start: 05-14-2023 End: 05-14-2023 Transcribe Orders Ashley Mcdaniel MD Work Phone: [facility] Comment on above: Family history of br east cancer (Primary Dx) Nipple discharge (Pr imary Dx); Family history of breast cancer in first degree relative Start: 05-14-2023 End: 05-14-2023 Office outpatient new 20 minutes Ashley Mcdaniel MD Work Phone: [facility] General Surgery Comment on above: Galactorrhea Start: 04-25-2023 End: 04-25-2023 ambulatory ARIANA GARZA [facility] Start: 04-11-2023 End: 04-11-2023 ambulatory ARIANAIsaias LEON [facility] Start: 04-01-2023 End: 04-01-2023 Office outpatient visit 15 minutes Ariana CONLEY-C Work Phone: [facility] Comment on above: Discharge from right nipple (Primary Dx) Start: 04-01-2023 End: 04-05-2023 ambulatory ARIANA ERIC [facility] Start: 01-23-2023 End: 01-23-2023 Office outpatient visit 25 minutes Ariana Garza PA-C Work Phone: [facility] Comment on above: Current moderate epi sode of major depressive disorder without prior episode (HCC) (Primary Dx); Prediabetes; Multiple joint complaints Start: 01-23-2023 End: 01-23-2023 ambulatory ARIANA GARZA [facility] Start: 09-04-2022 End: 09-04-2022 Office outpatient visit 15 minutes Ariana Garza PA-C Work Phone: [facility] Comment on above: Prediabetes (Primary Dx); Current moderate episode of major depressive disorder without prior episode (HCC) Start: 05-28-2022 End: 05-28-2022 Office outpatient visit 15 minutes Ariana Garza PA-C Work Phone: [facility] Comment on above: Current moderate epi sode of major depressive disorder without prior episode (HCC) (Primary Dx); Overactive bladder Start: 03-05-2022 End: 03-05-2022 Office outpatient visit 15 minutes Ariana Garza PA-C Work Phone: [facility] Comment on above: Current moderate epi sode of major depressive disorder without prior episode (HCC) (Primary Dx); Needs flu shot Start: 02-05-2022 End: 02-05-2022 Office outpatient visit 15 minutes Ariana Garza PA-C Work Phone: [facility] Comment on above: Current moderate epi sode of major depressive disorder without prior episode (HCC) (Primary Dx) Start: 10-02-2021 Documentation procedure Shari Tay [facility] Gen S[facility] Start: 10-01-2021 Coordination of care plan Elisha ross RN Patient Navigator Start: 10-01-2021 End: 10-01-2021 Office outpatient new 20 minutes Ashley Mcdaniel MD Work Phone: [facility] Comment on above: Abnormal mammogram o f right breast (Primary Dx) Start: 09-21-2021 Coordination of care plan Elisha ross RN Patient Navigator Comment on above: Mass of right breast , unspecified quadrant (Primary Dx) Start: 09-10-2021 End: 09-10-2021 Office outpatient new 30 minutes Priya Jorge ASSET ANALYST Work Phone: [facility] Comment on above: Suppurative hidraden itis (Primary Dx); Family history of breast cancer; Encounter for screening for malignant neoplasm of breast, unspecified screening modality Start: 04-29-2021 Orders Only Harper Cunningham rs ASSET ANALYST Work Phone: [facility] [employer] Comment on above: Encntr for obs for s nursing home expsr to oth biolg agents ruled out (Primary Dx) Start: 12-09-2020 End: 12-09-2020 Emergency department patient visit [facility] Start: 08-04-2020 End: 08-04-2020 Initial preventive medicine new pt age 18-39yrs Maikel Leal Work Phone: [facility] Comment on above: Well adult health ch tiarra (Primary Dx) Start: 01-05-2020 End: 01-05-2020 ambulatory PHYSICIAN [facility] Start: 12-14-2019 End: 12-14-2019 Office outpatient visit 15 minutes Lana Lombardi Work Phone: [facility] Comment on above: Essential hypertensi on (Primary Dx); Post-traumatic stress Start: 12-07-2019 End: 12-07-2019 Office outpatient visit 15 minutes Lana Lombardi Work Phone: [facility] Comment on above: Chronic right-sided low back pain with bilateral sciatica (Primary Dx); Menorrhagia with regular cycle Start: 12-05-2019 End: 12-06-2019 Emergency department patient visit Surekha Quintanilla Work Phone: [facility] Start: 06-25-2019 End: 06-25-2019 Subsequent hospital visit by physician [facility] [employer] [facility] Comment on above: Arrived Start: 06-25-2019 End: 06-25-2019 Office outpatient visit 15 minutes Lana Lombardi Work Phone: [facility] Comment on above: Essential hypertensi on (Primary Dx); Long Q-T syndrome; Tobacco use Start: 06-10-2019 End: 06-10-2019 Office outpatient visit 15 minutes Lana Lombardi Work Phone: [facility] Comment on above: Post-traumatic stres s (Primary Dx) Start: 03-17-2019 End: 03-17-2019 Office outpatient visit 15 minutes Lana Lombardi Work Phone: [facility] Comment on above: Post-traumatic stres s (Primary Dx) Start: 02-01-2019 End: 02-01-2019 Telephone encounter Mady Hunter [facility] Comment on above: Other Start: 01-25-2019 End: 01-25-2019 Office outpatient visit 15 minutes Lana Lombardi Work Phone: [facility] Comment on above: Post-traumatic stres s (Primary Dx) Start: 01-21-2019 End: 01-21-2019 Telephone encounter Love Nelson [facility] Comment on above: Results Start: 01-19-2019 End: 01-19-2019 Letter encounter Lana Lombardi Work Phone: [facility] Start: 11-24-2018 End: 11-24-2018 Initial preventive medicine new pt age 18-39yrs Lana Lombardi Work Phone: [facility] Comment on above: Encounter for well w hortensia exam without gynecological exam (Primary Dx); Elevated TSH; BMI 45.0-49.9, adult Start: 10-13-2018 End: 10-17-2018 Patient encounter procedure YASMIN BROWN [facility] Start: 10-13-2018 End: 10-13-2018 Office outpatient new 20 minutes Yasmin Brown Work Phone: [facility] [place] Comment on above: Foot pain, right (Pr imary Dx); Elevated blood pressure reading; Tobacco use Start: 03-18-2018 End: 03-18-2018 Emergency department patient visit Tejinder Case Work Phone: [facility] Emergency Medicine Procedures Date Procedure Procedure Detail Performing Clinician Start: 03-31-2024 ALL CBC WITH AUTO DIFF Hawk Héctor DO Work Phone: Start: 03-24-2024 ALL CBC WITH AUTO DIFF Hawk Héctor DO Work Phone: Start: 02-13-2024 ALL CBC WITH AUTO DIFF Hawk Héctor DO Work Phone: Start: 01-20-2024 IGP,APTIMA HPV,AGE GDLN Hawk Héctor DO Work Phone: Start: 12-22-2023 ALL CBC WITH AUTO DIFF Hawk Héctor DO Work Phone: Start: 12-15-2023 TBH BOX TEST SENT OUT C orey Héctor DO Work Phone: Start: 08-04-2020 Adult depression screening assessment Maikel Leal Start: 05-08-2020 Microscopic observat ion [Identifier] in Cervix by Cyto stain Maikel Leal Start: 12-05-2019 CT of thoracic spine Il lianna Olga Quintanilla Work Phone: Start: 12-05-2019 CT of lumbar spine Ilen e S Dwight Work Phone: Start: 06-25-2019 Standard ECG Lana Fa janeth Work Phone: Start: 10-13-2018 X-ray of right foot Pat basil Brown Work Phone: H/O: surgery S/P D&C (status post dilation and curettage) Harper CONLEY Work Phone: Plan of Treatment Date Care Activity Detail Author Start: 03-05-2028 Pneumococcal Vaccine : Ped or At-Risk (1 - PCV) Pneumococcal Vaccine: Ped or At-Risk (1 - PCV) [facility] Comment on above: Postponed from 06/01 (Not Indicated) Start: 03-05-2028 Pneumococcal Vaccine : Ped or At-Risk (1 of 2 - PCV) Pneumococcal Vaccine: Ped or At-Risk (1 of 2 - PCV) [facility] Comment on above: Postponed from 06/01 (Not Indicated) Start: 01-24-2025 End: 01-24-2025 Patient encounter procedure 01/24/2025 1:00 PM EDT Office Visit [facility] [address] [place] [id number] Hawk Anaya, DO [address] [place] [address] [facility] Start: 05-13-2024 End: 05-13-2024 Patient encounter procedure 05/13/2024 3:00 PM EST Office Visit [facility] [address] [place] [address] Harper Rosales PA [address] [place], [place] [id number] Arrived [facility] Comment on above: Arrived Start: 04-07-2024 End: 04-07-2024 Patient encounter procedure [facility] Comment on above: Arrived Start: 03-02-2024 End: 03-02-2024 Patient encounter procedure [facility] Comment on above: Arrived Start: 02-13-2024 [facility] Start: 02-13-2024 End: 02-13-2024 Patient encounter procedure 02/13/2024 9:00 AM EDT Procedure Visit [facility] Hawk Anaya, DO [address] [place] [address] [facility] Start: 01-26-2024 End: 01-26-2024 Patient encounter procedure 01/26/2024 10:45 AM EDT Office Visit [facility] [address] [place] [address] Alyssa Prakash, DAMARIS [address] [place] [address] [facility] Start: 01-20-2024 End: 01-20-2024 Patient encounter procedure 01/20/2024 10:20 AM EDT Office Visit [facility] [address] [place], [place] [id number] Hawk Anaya DO [address] [place] [address] [facility] Start: 01-12-2024 End: 01-11-2025 Microbial culture, body fluid [facility] Work Phone: Comment on above: Expected: 01/12/2024 , Expires: 01/11/2025 Start: 12-30-2023 End: 12-30-2023 Patient encounter procedure [facility] Comment on above: Arrived Start: 12-28-2023 COVID-19 Vaccine ( season) COVID-19 Vaccine () [facility] Start: 12-28-2023 Influenza vaccination [facility] Start: 12-22-2023 End: 12-22-2023 Professional / ancillary services management 12/22/2023 9:00 AM EDT Ancillary Procedure [facility] [address] [place] [id number] [facility] Start: 12-18-2023 End: 12-18-2023 Patient encounter procedure 12/18/2023 8:40 AM EDT Office Visit [facility] [place] [address] Ariana Garza PA-C [address] [place] [address] [facility] Start: 12-15-2023 End: 12-14-2024 DHEA DHEA Lab Routine Discharge from right nipple Irregular periods/menstrual cycles Expected: 12/15/2023 (Approximate), Expires: 12/14/2024 [facility] Comment on above: Expected: 12/15/2023 (Approximate), Expires: 12/14/2024 Start: 12-15-2023 End: 12-14-2024 US for US PELVIS-TRANSVAG IF INDICATED Imaging Routine Discharge from right nipple Irregular periods/menstrual cycles Expected: 12/15/2023 (Approximate), Expires: 12/14/2024 [facility] Comment on above: Expected: 12/15/2023 (Approximate), Expires: 12/14/2024 Start: 11-27-2023 End: 11-27-2023 Patient encounter procedure 11/27/2023 11:00 AM EDT Office Visit [facility] Pl[facility] [address] [place] [address] Tracy Alejandre II, MD [facility] [place] [address] [facility] Start: 11-23-2023 Depression Remission Assessment (PHQ9) Depression Remission Assessment (PHQ9) [facility] Start: 11-13-2023 End: 11-13-2023 Patient encounter procedure 11/13/2023 2:15 PM EDT Office Visit [facility] [address] [place] [address] Tracy Alejandre II, MD [facility] [place] [address] [facility] Start: 11-06-2023 End: 11-06-2023 Patient encounter procedure 11/06/2023 9:30 AM EDT Office Visit [facility] [place] [address] Tracy Alejandre II, MD [address] [facility] [place] [address] [facility] Start: 10-17-2023 End: 10-17-2023 Patient encounter procedure 10/17/2023 12:45 PM EDT Appointment [facility] Ultrasound [address] [place] [address] [facility] Ultrasound Start: 08-05-2023 End: 08-05-2023 Patient encounter procedure 08/05/2023 11:00 AM EDT Office Visit [facility] [address] [place] [address] Ariana Garza PA-C [address] [place] [address] [facility] Start: 07-07-2023 End: 07-07-2023 Patient encounter procedure 07/07/2023 8:00 AM EDT Office Visit [facility] Physician [facility] General Surgery [address] [place] [address] Ashley Mcdaniel III, MD [address] [place] [address] [facility] General Surgery Start: 07-01-2023 End: 07-01-2023 Patient encounter procedure [facility] Start: 05-08-2023 Screening for malign ant neoplasm of cervix [facility] Start: 04-25-2023 End: 04-25-2023 Patient encounter procedure 04/25/2023 11:00 AM EST Office Visit [facility] [address] [place] [address] Ariana Garza PA-C [address] [place] [address] [facility] Start: 04-11-2023 End: 04-11-2023 Patient encounter procedure [facility] Services Mammography Start: 01-08-2023 End: 01-08-2023 Patient encounter procedure 01/08/2023 10:40 AM EDT Office Visit [facility] [address] [place] [address] Ariana Garza PA-C [address] [place] [address] [facility] Start: 12-27-2022 COVID-19 Vaccine ( season) COVID-19 Vaccine ( season) [facility] Start: 12-27-2022 COVID-19 Vaccine () COVID-19 Vaccine ( season) [facility] Start: 12-27-2022 Influenza vaccination Sequenti al Influenza Vaccine (#1) [facility] Start: 12-06-2022 Depression Remission Assessment (PHQ9) Depression Remission Assessment (PHQ9) [facility] Start: 08-20-2022 End: 08-20-2022 Patient encounter procedure 08/20/2022 Office Visit Primary Care Ariana Garza PA-C [address] [place] [address] [facility] Start: 05-28-2022 End: 05-28-2022 Patient encounter procedure 05/28/2022 Office Visit Primary Care Ariana Garza PA-C [address] [place] [address] [facility] Start: 03-05-2022 End: 03-05-2022 Patient encounter procedure 03/05/2022 Office Visit Primary Care Ariana Garza PA-C [address] [place] [address] [facility] Start: 12-27-2021 Influenza vaccination Sequenti al Influenza Vaccine (#1) [facility] Start: 10-01-2021 End: 10-01-2021 Patient encounter procedure 10/01/2021 Appointment Radiology Ashley Mcdaniel III, MD [address] [place] [address] [facility] Mammography Start: 10-01-2021 End: 10-01-2021 Patient encounter procedure [facility] Gen S[facility] Start: 09-11-2021 End: 09-11-2021 Patient encounter procedure 09/11/2021 Appointment Radiology Priya Jorge, DAMARIS [address] [place] [address] [facility] Services Mammography Start: 09-11-2021 COVID-19 Vaccine (3 - Booster for Moderna series) COVID-19 Vaccine (3 - Booster for Moderna series) [facility] Start: 08-04-2021 Adolescent depressio n screening assessment Depression Screening (PHQ9) [facility] Start: 08-04-2021 Depression screening using PHQ-9 (Patient Health Questionnaire 9) score Depression Screening (PHQ-2/9) [facility] Start: 08-04-2021 History and physical examination, annual for health maintenance Wellness Visit [facility] Start: 06-08-2021 COVID-19 Vaccine (3 - Booster for Moderna series) COVID-19 Vaccine (3 - Booster for Moderna series) [facility] Start: 06-08-2021 COVID-19 Vaccine (3 - Moderna series) COVID-19 Vaccine (3 - Moderna series) [facility] Start: 04-30-2021 End: 04-30-2021 Patient encounter procedure 04/30/2021 Office Visit Lab Harper Gabriel, ASSET ANALYST [address] [address] [facility] Start: 12-27-2020 Influenza vaccination Sequenti al Influenza Vaccine (#1) [facility] Start: 03-15-2020 End: 03-15-2020 Office Visit 03/15/2020 Office Visit Family Medicine Lana Lombardi APRN-ASSET ANALYST [address] [id number] [facility] Start: 12-28-2019 Influenza vaccination INFLUENZA VACC INE (#1) [facility] Start: 12-28-2019 Influenza vaccinatio n given Sequential Influenza Vaccine (#1) [facility] Start: 12-14-2019 End: 12-14-2019 Office Visit 12/14/2019 Office Visit Family Medicine Lana Lombardi APRN-ASSET ANALYST [address] [place] [address] [facility] Start: 07-12-2019 End: 07-12-2019 Office Visit 07/12/2019 Office Visit Family Medicine Lana Lombardi PHYSICAL THERAPY MANAGER-ASSET ANALYST [address] [place] [address] [facility] Start: 06-25-2019 End: 06-25-2020 Standard ECG ECG ECG Routine Essential hypertension Expected: 06/25/2019, Expires: 06/25/2020 [facility] Comment on above: Expected: 06/25/2019 , Expires: 06/25/2020 Start: 03-08-2019 End: 03-08-2019 Office Visit 03/08/2019 Office Visit Family Medicine Lana Lombardi PHYSICAL THERAPY MANAGER-ASSET ANALYST [address] [place] [address] [facility] Start: 01-25-2019 End: 01-25-2019 Office Visit 01/25/2019 Office Visit Family Medicine Lana Lombardi PHYSICAL THERAPY MANAGER-ASSET ANALYST [address] [facility] [place] [address] [facility] Start: 12-27-2018 Influenza vaccination INFLUENZA VACC INE (#1) [facility] Start: 12-27-2018 Influenza vaccinatio n given SEQUENTIAL INFLUENZA VACCINE (Season Ended) [facility] Start: 11-24-2018 End: 11-25-2019 CBC, EDIF, PLATELET CBC, EDIF, PLATELET Lab Routine Encounter for well woman exam without gynecological exam Expected: 11/24/2018, Expires: 11/25/2019 [employer] Comment on above: Expected: 11/24/2018 , Expires: 11/25/2019 Start: 11-24-2018 End: 11-25-2019 Comprehensive metabolic 2000 panel COMPREHENSIVE METABOLIC PANEL Lab Routine Encounter for well woman exam without gynecological exam Expected: 11/24/2018, Expires: 11/25/2019 [employer] Comment on above: Expected: 11/24/2018 , Expires: 11/25/2019 Start: 11-24-2018 End: 11-25-2019 LIPID PANEL W CALCULATED LDL LIPID PANEL W CALCULATED LDL Lab Routine Encounter for well woman exam without gynecological exam Expected: 11/24/2018, Expires: 11/25/2019 [employer] Comment on above: Expected: 11/24/2018 , Expires: 11/25/2019 Start: 11-24-2018 End: 11-25-2019 TSH W/FT4 REFLEX TSH W/FT4 REFLEX Lab Routine Encounter for well woman exam without gynecological exam Elevated TSH Expected: 11/24/2018, Expires: 11/25/2019 [employer] Comment on above: Expected: 11/24/2018 , Expires: 11/25/2019 Start: 12-27-2017 Influenza vaccination INFLUENZA VACC INE (#1) [facility] Work Phone: Start: 2016 Screening for malign ant neoplasm of cervix HPV/Cotest [facility] Start: 2007 Screening for malign ant neoplasm of cervix [facility] Work Phone: Start: 2005 Third diphtheria, te tanus and acellular pertussis (DTaP) vaccination TDAP (ADULT) [facility] Work Phone: Start: 2004 Hepatitis C antibody , confirmatory test Hepatitis C Screening [facility] Start: 2004 Hepatitis C screening Hepatitis C Sc reening [facility] Start: 2004 Tetanus vaccination TETANUS [facility] Work Phone: Start: 2002 COVID-19 Vaccine (1) COVID-19 Vaccin e (1) [facility] Start: 2001 HIV screening HIV Screening [facility] Start: 1999 HIV screening HIV SCREENING DISCUSSION [facility] Work Phone: Start: 1992 Pneumococcal Vaccine : Ped or At-Risk (1 - PCV) Pneumococcal Vaccine: Ped or At-Risk (1 - PCV) [facility] Start: 1992 Pneumococcal Vaccine : Ped or At-Risk (1 of 2 - PPSV23) Pneumococcal Vaccine: Ped or At-Risk (1 of 2 - PPSV23) [facility] Start: 1991 COVID-19 Vaccine (1) COVID-19 Vaccin e (1) [facility] Start: 1989 History and physical examination, annual for health maintenance Wellness Visit [facility] Start: 1986 Screening for malign ant neoplasm of cervix PAP SMEAR [facility] Start: 1986 Tetanus vaccination [facility] Aerobic culture Aerobic culture Microbiology Routine Discharge from right nipple Ordered: 12/15/2023 [facility] Comment on above: Ordered: 12/15/2023 Anaerobic culture Anaerobic cult ure Microbiology Routine Discharge from right nipple Ordered: 12/15/2023 [facility] Work Phone: Comment on above: Ordered: 12/15/2023 CBC W Auto Different ial panel - Blood CBC and differential Lab Routine Discharge from right nipple Irregular periods/menstrual cycles Ordered: 12/15/2023 [facility] Comment on above: Ordered: 12/15/2023 End: 09-05-2023 Complete blood count with white cell differential, manual CBC and Differential Lab Routine Prediabetes 1 Occurrences starting 09/04/2022 until 09/05/2023 [facility] Comment on above: 1 Occurrences starti ng 09/04/2022 until 09/05/2023 End: 08-19-2024 Complete blood count with white cell differential, manual CBC and Differential Lab Routine Prediabetes 1 Occurrences starting 08/19/2023 until 08/19/2024 [facility] Comment on above: 1 Occurrences starti ng 08/19/2023 until 08/19/2024 End: 09-05-2023 Comprehensive metabolic 2000 panel - Serum or Plasma Comprehensive Metabolic Panel Lab Routine Prediabetes 1 Occurrences starting 09/04/2022 until 09/05/2023 [facility] Comment on above: 1 Occurrences starti ng 09/04/2022 until 09/05/2023 End: 01-24-2024 Comprehensive metabolic 2000 panel - Serum or Plasma Comprehensive Metabolic Panel Lab Routine Prediabetes 1 Occurrences starting 01/23/2023 until 01/24/2024 [facility] Comment on above: 1 Occurrences starti ng 01/23/2023 until 01/24/2024 End: 08-19-2024 Comprehensive metabolic 2000 panel - Serum or Plasma Comprehensive Metabolic Panel Lab Routine Prediabetes 1 Occurrences starting 08/19/2023 until 08/19/2024 [facility] Comment on above: 1 Occurrences starti ng 08/19/2023 until 08/19/2024 Cytology Cervical or vaginal smear or scraping study Pap Smear Pathology and Cytology Routine Well woman exam with routine gynecological exam Ordered: 01/20/2024 [facility] Work Phone: Comment on above: Ordered: 01/20/2024 DHEA-sulfate DHEA-sulfate Lab Routine Discharge from right nipple Irregular periods/menstrual cycles Ordered: 12/15/2023 [facility] Comment on above: Ordered: 12/15/2023 Follicle stimulating hormone Follicle stimulating hormone Lab Routine Discharge from right nipple Irregular periods/menstrual cycles Ordered: 12/15/2023 [facility] Comment on above: Ordered: 12/15/2023 hCG, quantitative, hCG, quantitative, Lab Routine Discharge from right nipple Irregular periods/menstrual cycles Ordered: 12/15/2023 [facility] [employer] Comment on above: Ordered: 12/15/2023 End: 09-05-2023 Hemoglobin A1c/Hemoglobin.total in Blood Hemoglobin A1c Lab Routine Prediabetes 1 Occurrences starting 09/04/2022 until 09/05/2023 [email or web address] Work Phone: Comment on above: 1 Occurrences starti ng 09/04/2022 until 09/05/2023 End: 01-24-2024 Hemoglobin A1c/Hemoglobin.total in Blood Hemoglobin A1c Lab Routine Prediabetes 1 Occurrences starting 01/23/2023 until 01/24/2024 [email or web address] Work Phone: Comment on above: 1 Occurrences starti ng 01/23/2023 until 01/24/2024 End: 08-19-2024 Hemoglobin A1c/Hemoglobin.total in Blood Hemoglobin A1c Lab Routine Prediabetes 1 Occurrences starting 08/19/2023 until 08/19/2024 [email or web address] Work Phone: Comment on above: 1 Occurrences starti ng 08/19/2023 until 08/19/2024 Hemoglobin A1c/Hemoglobin.total in Blood Hemoglobin A1c Lab Routine Discharge from right nipple Irregular periods/menstrual cycles Ordered: 12/15/2023 [facility] Comment on above: Ordered: 12/15/2023 Human papilloma viru s DNA [Presence] in Unspecified specimen by Probe with amplification HPV DNA probe, amplified Microbiology Routine Well woman exam with routine gynecological exam Ordered: 01/20/2024 [facility] [employer] Comment on above: Ordered: 01/20/2024 INR Coag RelTime (Bld) XR Foot R ight 3+ Views (Standard) Imaging STAT Foot pain, right 10/13/2018 11:25 AM EDT [facility] End: 09-05-2023 Lipid 1996 panel - Serum or Plasma Lipid Panel Lab Routine Prediabetes 1 Occurrences starting 09/04/2022 until 09/05/2023 [facility] Comment on above: 1 Occurrences starti ng 09/04/2022 until 09/05/2023 End: 08-19-2024 Lipid 1996 panel - Serum or Plasma Lipid Panel Lab Routine Prediabetes 1 Occurrences starting 08/19/2023 until 08/19/2024 [facility] Comment on above: 1 Occurrences starti ng 08/19/2023 until 08/19/2024 Luteinizing hormone Luteinizing hormone Lab Routine Discharge from right nipple Irregular periods/menstrual cycles Ordered: 12/15/2023 [facility] Comment on above: Ordered: 12/15/2023 End: 06-02-2024 MG Breast - bilateral Diagnostic Mammography Diagnostic Emile Bilateral Imaging Routine Discharge from right nipple 1 Occurrences starting 04/01/2023 until 06/02/2024 [facility] Comment on above: 1 Occurrences starti ng 04/01/2023 until 06/02/2024 End: 11-10-2022 MG Breast - bilateral Screening Mammography Screening Emile Bilateral Imaging Routine Encounter for screening for malignant neoplasm of breast, unspecified screening modality 1 Occurrences starting 09/10/2021 until 11/10/2022 [facility] Work Phone: Comment on above: 1 Occurrences starti ng 09/10/2021 until 11/10/2022 End: 05-14-2024 MR Breast - bilateral WO and W contrast IV MR Breast Bilateral With And Without Contrast Imaging Routine Nipple discharge Family history of breast cancer in first degree relative 1 Occurrences starting 05/14/2023 until 05/14/2024 [facility] Work Phone: Comment on above: 1 Occurrences starti ng 05/14/2023 until 05/14/2024 End: 06-18-2024 MR Guidance for biopsy of Breast - right MR Breast Core Biopsy Right Imaging Routine 1 Occurrences starting 06/18/2023 until 06/18/2024 [facility] Comment on above: 1 Occurrences starti ng 06/18/2023 until 06/18/2024 Prolactin Prolactin Lab Ro utine Discharge from right nipple Irregular periods/menstrual cycles Ordered: 12/15/2023 [facility] Comment on above: Ordered: 12/15/2023 End: 04-01-2024 Prolactin [Mass/volume] in Serum or Plasma Prolactin Lab Routine Discharge from right nipple 1 Occurrences starting 04/01/2023 until 04/01/2024 [facility] Comment on above: 1 Occurrences starti ng 04/01/2023 until 04/01/2024 Prolactin [Mass/volu me] in Serum or Plasma Prolactin Lab Routine Discharge from right nipple 04/01/2023 10:25 AM EST [facility] End: 04-29-2022 SARS-CoV-2 (COVID-19) RNA [Presence] in Respiratory specimen by ALFREDO with probe detection COVID-19/Influenza A,B Molecular Microbiology Routine Encntr for obs for susp expsr to oth biolg agents ruled out 1 Occurrences starting 04/29/2021 until 04/29/2022 [facility] Work Phone: Comment on above: 1 Occurrences starti ng 04/29/2021 until 04/29/2022 End: 09-05-2023 Thyrotropin [Units/volume] in Serum or Plasma TSH Lab Routine Prediabetes 1 Occurrences starting 09/04/2022 until 09/05/2023 [facility] Comment on above: 1 Occurrences starti ng 09/04/2022 until 09/05/2023 Thyrotropin [Units/volume] in Serum or Plasma TSH Lab Routine Discharge from right nipple Irregular periods/menstrual cycles Ordered: 12/15/2023 [facility] Comment on above: Ordered: 12/15/2023 End: 09-05-2023 Thyroxine (T4) free [Mass/volume] in Serum or Plasma T4, Free Lab Routine Prediabetes 1 Occurrences starting 09/04/2022 until 09/05/2023 [facility] Comment on above: 1 Occurrences starti ng 09/04/2022 until 09/05/2023 Thyroxine (T4) free [Mass/volume] in Serum or Plasma T4, free Lab Routine Discharge from right nipple Irregular periods/menstrual cycles Ordered: 12/15/2023 [facility] Comment on above: Ordered: 12/15/2023 End: 09-21-2022 Ultrasonography guided biopsy of right breast US Breast Biopsy Right Imaging Routine Mass Of Right Breast, Unspecified Quadrant 1 Occurrences starting 09/21/2021 until 09/21/2022 [facility] Work Phone: Comment on above: 1 Occurrences starti ng 09/21/2021 until 09/21/2022 End: 04-01-2024 US Breast - right US Breast Right Complete Imaging Routine Discharge from right nipple 1 Occurrences starting 04/01/2023 until 04/01/2024 [facility] Work Phone: Comment on above: 1 Occurrences starti ng 04/01/2023 until 04/01/2024 End: 06-18-2024 US Breast - right US Breast Right Complete Imaging Routine 1 Occurrences starting 06/18/2023 until 06/18/2024 [facility] Work Phone: Comment on above: 1 Occurrences starti ng 06/18/2023 until 06/18/2024 End: 09-29-2024 US Breast - right US Breast Right Complete Imaging Routine Mastitis 1 Occurrences starting 09/30/2023 until 09/29/2024 [facility] Work Phone: Comment on above: 1 Occurrences starti ng 09/30/2023 until 09/29/2024 End: 06-18-2024 US Guidance for biopsy of Breast - right US Breast Biopsy Right Imaging Routine 1 Occurrences starting 06/18/2023 until 06/18/2024 [facility] Comment on above: 1 Occurrences starti ng 06/18/2023 until 06/18/2024 Immunizations Immunization Date Immunization Notes Care Provider Kameron [facility] 03-05-2022 Seasonal, quadrivale nt, recombinant, injectable influenza vaccine, preservative free Ariana Garza PA-C Work Phone: [facility] 03-05-2022 flu vac qv 2021,18yr up,rcm-PF (FLUBLOK QUAD) syringe Ariana CONLEY-Hammad Work Phone: [facility] 03-05-2022 influenza virus vaccine, unspecified formulation Ariana CONLEY-C Work Phone: [facility] 03-17-2019 influenza virus vaccine, unspecified formulation [facility] Payers Date Payer Category Payer Self-pay 2022 [employer] [id number] 2022 Unknown [id number] 2020 Unknown [employer] - PREFERRED [id number] 2020-Present [id number]. [id number] 2020 Unknown [id number] 2020 Unknown [id number]. 1.13.385. [id number] 2018 Private Health Insurance xxx [id number]. [id number] 2018 Private Health Insurance [id number] 1986 Unknown [id number] 2.16.840.1.133471.3.579. 2.903 1986 Unknown [id number] 2.16.840.1.645442.3.579. 2.903 1986 Unknown [id number] 2.16.840.1.392717.3.579. 2.903 1986 Unknown [id number] 2.16.840.1.675367.3.579. 2.900 1986 Unknown [id number] 2.16.840.1.940148.3.579. 2.900 1986 Unknown [id number] 2.16.840.1.855551.3.579. 2.900 1986 Unknown [id number] 2.16.840.1.980210.3.579. 2.903 1986 Unknown [id number] 2.16.840.1.609365.3.579. 1986 Unknown [id number] 2.16.840.1.023831.3.579. 2 1986 Unknown [id number] 2.16.840.1.199646.3.579. 2 1986 Unknown [id number] 2.16.840.1.730381.3.579. 2 1986 Unknown [id number] 2.16.840.1.610458.3.579. 2 1986 Unknown [id number] 2.16.840.1.332628.3.579. 2 1986 Unknown [id number] 2.16.840.1.183474.3.579. 2 1986 Unknown [id number] 2.16840.1.567717.3.579. 2 1986 Unknown [id number] 2.16840.1.818122.3.579. 2 1986 Unknown [id number] 2.16840.1.236142.3.579. 2 1986 Unknown [id number] 2.16.840.1.031471.3.579. 2 1986 Unknown [id number] 2.16840.1.938018.3.579. 2 1986 Unknown [id number] 2.16.840.1.086725.3.579. 2 1986 Unknown [id number] 2.16.840.1.788379.3.579. 2 1986 Unknown [id number] 2.16.840.1.916279.3.579. 2 1986 Unknown [id number] 2.16.840.1.997691.3.579. 2 1986 Unknown [id number] 2.16.840.1.891737.3.579. 2.903 1986 Unknown [id number] 2.16.840.1.641285.3.579. 2.1259 1986 Unknown [id number] 2.16.840.1.077440.3.579. 2.1259 1986 Unknown [id number] 2.16.840.1.580991.3.579. 2.1259 1986 Unknown [id number] 2.16.840.1.072968.3.579. 2.1259 1986 Unknown [id number] 2.16.840.1.826685.3.579. 2.9 1986 Unknown [id number] 2.16.840.1.397769.3.579. 2.1259 Unknown [id number] 2.16.840.1.970501.3.579. 2.462 Unknown Magen GARAY/LETY [id number] Unknown [id number] 2.16.840.1.888346.3.579. 2.531 Unknown [id number] 2.16.840.1.914862.3.579. 2.531 Social History Date Type Detail Facility Start: 03-18-2018 End: 01-12-2024 Tobacco smoking status NHIS Current every day smoker [facility] Work Phone: Start: 03-18-2018 End: 04-01-2023 Cigarettes smoked current (pack per day) - Reported [facility] Start: 1985 Sex Assigned At Not on file [facility] Work Phone: History of tobacco use Cigarette Smoker [facility] Start: 10-13-2018 End: 02-05-2022 History SDOH Alcohol Frequency 1 [facility] Start: 01-31-2019 End: 04-01-2023 Alcohol intake No [facility] Start: 03-17-2019 End: 06-10-2019 Alcohol intake Current non-drinker of alcohol (finding) [facility] Start: 06-25-2019 End: 12-14-2019 Tobacco use and exposure Never used [facility] Start: 08-31-2021 End: 09-04-2022 Exposure to SARS-CoV-2 (event) Not sure [facility] Start: 12-14-2019 Tobacco Comment 10-15 cigarettes a day. [facility] Start: 08-04-2020 End: 01-12-2024 Tobacco use and exposure Former user [facility] End: 03-12-2020 History of tobacco use User of smokeless tobacco [facility] Start: 08-04-2020 End: 10-01-2021 Alcohol intake Lifetime non-drinker (finding) [facility] Start: 08-04-2020 End: 02-05-2022 History SDOH Social Connections Phone 5 [facility] Start: 08-04-2020 History SDOH Social Connections Get Together 4 [facility] Start: 08-04-2020 End: 02-05-2022 History SDOH Social Connections Membership 2 [facility] Start: 08-04-2020 History SDOH Social Connections Living 3 [facility] Start: 08-04-2020 History SDOH Physical Activity DPW 0 [facility] Start: 09-10-2021 End: 09-10-2022 Tobacco smoking status NHIS Ex-smoker [facility] Start: 02-23-2022 End: 01-12-2024 Alcohol intake Ex-drinker (finding) [facility] Start: 02-05-2022 Alcohol Comment rare [facility] Within the last year , have you been afraid of your partner or ex-partner? No [facility] Are you now , , , , never or living with a partner? [facility] How often to you hav e a drink containing alcohol? Never [facility] Average Number of Drinks Not on file [facility] Do you feel stress - tense, restless, nervous, or anxious, or unable to sleep at night because your mind is troubled all the time - these days [OSQ] Not at all [facility] (I/We) worried wheth er (my/our) food would run out before (I/we) got money to buy more. Never true [facility] Start: 05-08-2020 Gender identity Identifies as female gender (finding) [facility] Start: 05-08-2020 Sexual orientation Heterosexual (finding) [facility] History of tobacco use [facility] smoker [facility] How hard is it for y ou to pay for the very basics like food, housing, medical care, and heating Not very hard [facility] Start: 1985 Sex Assigned At Female [facility] Clinical Notes 04-29-2021 to 05-13-2024 YAEL Navarrete - 05/13/2024 3:00 PM YAEL Issa - 04/07/2024 11:20 AM Deepali Siu - 03/02/2024 10:20 AM Deepali Siu - 01/20/2024 10:20 AM EDTPatient Instructions Note Date & Type Note Facility 05-13-2024 History of Presen t illness Narrative Reason for Appointment: Patient ID: Lele Leon is a 38 y.o. female who presents for Post-op Visit Patient presents today for [address] Post Op Follow Up appointment. MEDICATIONS No current outpatient medications ALLERGIES Allergies Allergen Reactions Bee Venom Anaphylaxis [...] hand DILATION AND CURETTAGE OF UTERUS 2010 DILATION AND CURETTAGE OF UTERUS 02/13/2024 REVIEW OF SYSTEMS Review of Systems: Review of Systems OBJECTIVE Objective: OBGyn Exam Vitals: Estimated body mass index is 55.24 kg/m as calculated from the following: Height as of 12/30/23: 5' 2 . Weight as of this encounter: 302 lb. BP: 130/82 No LMP recorded. ASSESSMENT & PLAN Post Op Follow Up: Patient presents today for a 6 week postop check following a Da Debo assisted Laparoscopic Hysterectomy. Surgery execution and pathology results were discussed in great detail with the patient. Pelvic exam was performed and vaginal cuff was noted as healing well. Patient has been instructed to sustain from sexual intercourse for one more week. All other restrictions have otherwise been lifted. Follow Up: Patient is to return in 1 year for annual exam unless needed otherwise. Documented by YAEL Navarrete on behalf of: YAEL Navarrete documented in this encounter [facility] 04-07-2024 History of Presen t illness Narrative Reason for Appointment: Patient ID: Lele Leon is a 38 y.o. female who presents for Post-op Visit (Pt present for a post operative visit. Pt had a D&C on 02/13/2024.) Patient presents today for 1 Week Post Op Follow Up appointment. MEDICATIONS Current Outpatient Medications Medication Instructions sulfamethoxazole-trimethoprim [...] REMOVAL hand DILATION AND CURETTAGE OF UTERUS 2011 DILATION AND CURETTAGE OF UTERUS 02/13/2024 REVIEW OF SYSTEMS Review of Systems: Review of Systems Constitutional: Negative. HENT: Negative. Eyes: Negative. Respiratory: Negative. Cardiovascular: Negative. Gastrointestinal: Negative. Genitourinary: Negative. Musculoskeletal: Negative. Skin: Negative. Neurological: Negative. All other systems reviewed and are negative. Hematological: Negative. Endocrine: Negative. Allergic/Immunologic: Negative. OBJECTIVE Objective: Physical Exam Constitutional: Appearance: Normal appearance. She is normal weight. HENT: Head: Normocephalic. Cardiovascular: Rate and Rhythm: Normal rate. Pulses: Normal pulses. Pulmonary: Effort: Pulmonary effort is normal. Breath sounds: Normal breath sounds. Abdominal: Palpations: Abdomen is soft. Musculoskeletal: General: Normal range of motion. Neurological: General: No focal deficit present. Mental Status: She is alert and oriented to person, place, and time. Psychiatric: Mood and Affect: Mood normal. Behavior: Behavior normal. Thought Content: Thought content normal. Judgment: Judgment normal. Vitals and nursing note reviewed. Vitals: Estimated body mass index is 39.69 kg/m as calculated from the following: Height as of 12/30/23: 5' 2 . Weight as of this encounter: 217 lb. BP: 122/72 No LMP recorded (approximate). ASSESSMENT & PLAN ICD-10-CM 1. Postoperative visit Z48.89 2. S/P D&C (status post dilation and curettage) Z98.890 Post Op Follow Up: Patient presents today for a one week postop check after having a Da Debo assisted Laparoscopic Hysterectomy. Patient is doing well but has minor complaints of pain. Incisions has been noted as healing well with no signs and symptoms of infection. Pathology reviewed with patient. Incorrect info on pathology report we will reach out to pathology for correction. Patient has both ovaries, left ovarian mass removed and right cyst removed. Follow Up: Patient is to return in 5 weeks for 6 week post operative evaluation Documented by Carmel Saldaña MA on behalf of: YAEL Navarrete documented in this encounter [facility] 03-02-2024 History of Presen t illness Narrative Reason for Appointment: Patient ID: Lele Leon is a 38 y.o. female who presents for No chief complaint on file. Patient presents today for Pre Op/Post Op appointment. Patient is scheduled to undergo Da Debo assisted Laparoscopic Hysterectomy, possible exploratory laparotomy, possible BSO, possible cystoscopy on 03/31/[address] Anaya at [facility]. MEDICATIONS Current Outpatient Medications Medication Instructions [...] nursing note reviewed. Exam conducted with a vehicle controls engineer present. Vitals: Estimated body mass index is [...] having a D&C Hysteroscopy performed at [facility] with Dr. Anaya on 02/13/2024. Pathology [...] reviewed, and patient is to proceed to [facility] OR. Follow Up: Patient is to follow up at 1 & 6 weeks post operative to assess proper healing and recovery from procedure. Documented by Korina Randall LPN on behalf of: Hawk Anaya DO documented in this encounter [facility] 01-26-2024 Note TODAY'S DATE: 024 PATIENT: [...] other drug use. 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 Ultrasound showed an isolated, [...] to clindamycin. She was seen by her narcotics agent who cultured the nipple discharge on 12/22/2023 with results showing: Anaerobic: Bacteroides vulgatus, and Prevotella sp. Aerobic culture: staphylococcus epidermidis which was resistant to penicillins, clindamycin. This was suspectible to Bactrim and she was prescribed Bactrim x 7 days and Flagyl x 7 days. She recently finished these antibiotics. She was seen by Dr. Sasha Alcala ([facility]) who referred her to our [...] 02/12 followed by a possible hysterectomy 03/30. 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 [facility] 01-20-2024 History of Presen t illness Narrative Reason for Appointment: Patient ID: Lele Leon is a 38 y.o. female who presents for Well Women Visit and Pre-op Visit Patient presents today for Pre Op/Annual appointmet. Patient is scheduled to undergo Diagnostic Laparoscopy, possible JAIRO, possible FOE, possible BSO and D&C Hysteroscopy, possible Myosure on 02/13/[address] Anaya at [facility]. MEDICATIONS Current Outpatient Medications Medication Instructions metFORMIN XR (GLUCOPHAGE-XR) 500 mg, Oral, Daily with breakfast ALLERGIES Allergies Allergen Reactions Bee Venom Anaphylaxis [...] Cardiovascular: Negative. Gastrointestinal: Negative. Genitourinary: Positive for pelvic pain and vaginal bleeding. Musculoskeletal: Negative. Skin: Negative. Neurological: Negative. All other systems reviewed and are negative. Hematological: Negative. Endocrine: Negative. Allergic/Immunologic: Negative. OBJECTIVE Objective: Physical Exam Constitutional: Appearance: Normal appearance. She is well-developed. Genitourinary: Vulva normal. Breasts: Breasts are soft. Right: Normal. Left: Normal. Cardiovascular: Rate and Rhythm: Normal rate and [...] nursing note reviewed. Exam conducted with a vehicle controls engineer present. Vitals: Estimated body mass index is 53.59 kg/m as calculated from the following: Height as of 12/30/23: 5' 2 . Weight as of 12/30/23: 293 lb. BP: Patient's last menstrual period was 12/18/2023. ASSESSMENT & PLAN ICD-10-CM 1. Pre-op examination Z01.818 2. Well woman exam Z01.419 3. Thickened endometrium R93.89 4. Enlarged uterus N85.2 5. Pelvic pain in female R10.2 6. Abnormal uterine bleeding (AUB) N93.9 Annual: Patient presents today for an annual exam. Patient states she is doing well and has no complaints. Pap was obtained without difficulty. Pre Op: Patient is doing well but has complaints of pelvic pain and abnormal uterine bleeding. I have discussed conservative management vs. surgical management with the patient in detail and patient desires surgical management at this time. Patient will undergo Diagnostic Laparoscopy, possible JAIRO, possible FOE, possible BSO and D&C Hysteroscopy, possible Myosure on 02/13/2024. Surgical consents were signed, mmc was reviewed, and patient is to proceed to [facility]. Follow Up: Patient is to follow up between 1-2 weeks post operative to assess proper healing and recovery from procedure. 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 Ultrasound showed an isolated, [...] to clindamycin. She was seen by her narcotics agent who cultured the nipple discharge on 12/22/2023 with results showing: Anaerobic: Bacteroides vulgatus, and Prevotella sp. Aerobic culture: staphylococcus epidermidis which was resistant to penicillins, clindamycin. This was suspectible to Bactrim and she was prescribed Bactrim x 7 days and Flagyl x 7 days. She recently finished these antibiotics. She was seen by Dr. Sasha Alcala ([facility]) who referred her to our [...] 02/12 followed by a possible hysterectomy 03/30. 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 Ultrasound showed an isolated, [...] to clindamycin. She was seen by her narcotics agent who cultured the nipple discharge on 12/22/2023 with results showing: Anaerobic: Bacteroides vulgatus, and Prevotella sp. Aerobic culture: staphylococcus epidermidis which was resistant to penicillins, clindamycin. This was suspectible to Bactrim and she was prescribed Bactrim x 7 days and Flagyl x 7 days. She recently finished these antibiotics. She was seen by Dr. Sasha Alcala ([facility]) who referred her to our [...] 02/12 followed by a possible hysterectomy 03/30. 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 Constitutional: [...] She recently had culture completed through her narcotics agent office of her purulent nipple discharge which [...] smoking cessation. I provided her with the [place] tobacco quit line information on her AVS. [...] minutes on this encounter today which includes [id number] time with the patient, time reviewing the chart, and time spent documenting the encounter. documented in this encounter [facility] 12-30-2023 History of Presen t illness Narrative Reason for Appointment: Patient ID: Lele Leon is a 38 y.o. female who presents for Results Patient presents today for Follow up appointment to discuss results. MEDICATIONS Current Outpatient Medications Medication Instructions metFORMIN XR (GLUCOPHAGE-XR) 500 mg, Oral, Daily with breakfast metroNIDAZOLE (FLAGYL) 500 mg, Oral, 2 times daily, Do not drink alcohol while taking this medication ALLERGIES Allergies Allergen Reactions Bee Venom Anaphylaxis [...] Cardiovascular: Negative. Gastrointestinal: Negative. Genitourinary: Positive for menstrual problem. Musculoskeletal: Negative. Skin: Negative. Neurological: Negative. All [...] nursing note reviewed. Exam conducted with a vehicle controls engineer present. Vitals: Estimated body mass index is 53.59 kg/m as calculated from the following: Height as of this encounter: 5' 2 . Weight as of this encounter: 293 lb. BP: 120/82 Patient's last menstrual period was 12/18/2023. ASSESSMENT & PLAN ICD-10-CM 1. Endometrial thickening on ultrasound R93.89 2. Abnormal uterine bleeding (AUB) N93.9 3. Irregular periods/menstrual cycles N92.6 4. Pelvic pain in female R10.2 5. Dysmenorrhea N94.6 Pt presents to discuss ultrasound that was obtained for irregular menstrual cycles. Endometrial thickening noted on ultrasound as well as uterus enlargement. Pt to be scheduled for D&C hysteroscopy with poss myosure and dx lap with poss JAIRO poss FOE. Pt desires hysterectomy in the future. Pt to return for preop/annual. Reassurance given. Documented by Korina Randall LPN on behalf of: Hawk Anaya DO documented in this encounter [facility] 12-15-2023 History of Presen t illness Narrative Reason for Appointment: Patient ID: Lele Leon is a 38 y.o. female who presents for discuss procedure Patient presents today for Consult appointment. MEDICATIONS Current Outpatient Medications Medication Instructions metFORMIN XR (GLUCOPHAGE-XR) 500 mg, Oral, Daily with breakfast ALLERGIES Allergies Allergen Reactions Bee Venom Anaphylaxis Ibuprofen Nausea And Vomiting Other Reaction(s): GI Intolerance Severe vomiting PROBLEMS Active Ambulatory Problems Diagnosis Date Noted No Active Ambulatory Problems Resolved Ambulatory Problems Diagnosis Date Noted No [...] SYSTEMS Review of Systems: Review of Systems Genitourinary: Positive for pelvic pain, vaginal bleeding and vaginal pain. All other systems reviewed and are negative. OBJECTIVE Objective: Physical Exam Constitutional: Appearance: Normal appearance. She is well-developed. Genitourinary: Genitourinary Comments: Right breast biopsy previously obtained with marker placement. Breasts: Right: Nipple discharge and tenderness present. Left: Normal. Cardiovascular: Rate and Rhythm: Normal rate and [...] nursing note reviewed. Exam conducted with a vehicle controls engineer present. Vitals: There is no height or weight on file to calculate BMI. BP: 118/78 No LMP recorded. ASSESSMENT & PLAN Patient voiced that she is having super heavy menstrual cycles & having 2 cycles a month as well. Patient voiced that she has had nipple RIGHT Nipple discharge for 1-2 years. Patient was seen by General surgeon and had biopsy done with marker placement. Patient desires to have second opinion by breast specialist Dr. Alcala. 5-point breast exam performed, no movement of breast nipple at line of umbilicus. Patient desires to have breast reduction and also discuss ducts that have cause nipple discharge and bleeding. Obtained culture of right nipple discharge. 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 Patient desires to start weight loss journey. Patient currently takes Metformin 1000mg once daily. Discussed Adipex. Patient to return to clinic in 2 weeks and review labs and Ultrasound. Patient also needs to schedule annual appointment and eventually Endometrial biopsy to assess for irregular/ heavy cycles. Documented by Bee Brizuela LPN on behalf of: Hawk Anaya DO documented in this encounter [facility] 11-27-2023 Note Lele Leon present s for a persistent cyst in the right breast, treated with antibiotics. Since her last visit 3 weeks ago, the cyst has continued to decrease, from the size of a daily to a pea and is not tender. She completed antibiotic a week ago Plan - doing much better. Excision alf is still a consideration. Follow up as needed. AUTHENTICATED BY TRACY ALEJANDRE II, ON 11/27/2023 12:56:45 [facility] 11-27-2023 History of Presen t illness Narrative Lele Leon presents for a persistent cyst in the right breast, treated with antibiotics. Since her last visit 3 weeks ago, the cyst has continued to decrease, from the size of a daily to a pea and is not tender. She completed antibiotic a week ago Plan - doing much better. Excision alf is still a consideration. Follow up as needed. documented in this encounter [facility] 11-06-2023 Note Lele Leon present s for a persistent cyst in the right breast, treated with antibiotics. Since her last visit 2 weeks ago and taking clindamycin, the cyst has continued to decrease, from the size of a plum to a daily, and is also less tender. Plan is to taper clindamycin for 2 more weeks and recheck in 3 weeks. Excision terminal block assembler is still a consideration. AUTHENTICATED BY TRACY ALEJANDRE II, ON 11/06/2023 12:39:37 [facility] 11-06-2023 History of Presen t [...] weeks and recheck in 3 weeks. Excision alf is still a consideration. documented in this encounter [facility] 10-22-2023 Note Lele Leon present s [...] BY TRACY ALEJANDRE II, ON 10/22/2023 15:39:42 [facility] 10-22-2023 History of Presen t [...] weeks, then reevaluate. documented in this encounter [facility] 10-16-2023 Note Lele Leon female 38 [...] AUTHENTICATED BY NICOLE DEAN, ON 10/17/2023 09:28:01 [facility] 10-16-2023 History of Presen t [...] Nicole Dean PA-C documented in this encounter [facility] 10-16-2023 History of Presen t illness Narrative Lele Leon female 38 y.o. Brief Review of HPI, Focused Exam, and Assessment and Plan Llee Leon presents with a history of right [...] Nicole Dean PA-C documented in this encounter [facility] 09-30-2023 Note Lele Leon female 38 [...] BY TRACY ALEJANDRE II, ON 10/01/2023 12:29:19 [facility] 08-25-2023 Note .Subjective Patient ID: [...] If this im (more content not included)... [facility] 08-25-2023 History of Presen t [...] daily with breakfast . - blood-glucose sensor ([employer] Andrew 3 Sensor) Malia; For continuous glucose monitoring. Change every 14 days . - Hemoglobin A1c; Future - CBC and Differential; Future - Comprehensive Metabolic Panel; Future - Lipid Panel; Future Mastitis - doxycycline hyclate (VIBRA-TABS) 100 MG tablet; Take 1 (one) tablet (100 mg total) by mouth 2 (two) times a day . Note: This dictation was generated using Victor voice recognition software. Please excuse any grammatical or spelling errors that may have occurred using the system. documented in this encounter [facility] 07-03-2023 History of Presen t illness Narrative Patient informed of negative right breast biopsy results. Patient also informed of the need for a repeat 6 month right breast mammogram and US. Recall placed in computer. documented in this encounter [facility] 07-03-2023 History of Presen t illness Narrative Called patient today for post biopsy call/check in. No answer, left VM for patient to return my call with any questions/concerns. Per chart, patient has viewed results in [facility] which reveal mastitis. Ordering provider to call patient with results. Benign path entered into breast care summary. Navigation will sign off at this time. Cheri MATTHEWS, RN General Oncology Nurse Navigator Breast Health Nurse Navigator [facility] [phone] documented in this encounter [facility] 07-01-2023 History of Presen t illness [...] in good condition. documented in this encounter [facility] 05-14-2023 History of Presen t illness [...] to genetic counseling. documented in this encounter [facility] 04-01-2023 Note Addended by: ARIANA GARZA on: 04/01/2023 10:45 AM Modules accepted: Orders [facility] 04-01-2023 Note Addended by: ARIANA GARZA on: 04/01/2023 10:45 AM Modules accepted: Orders [facility] 04-01-2023 Miscellaneous Notes Addended by: ARIANA GARZA on: 04/01/2023 10:45 AM Modules accepted: Orders documented in this encounter [facility] 04-01-2023 History of Presen t illness [...] Future Note: This dictation was generated using Victor voice recognition software. Please excuse any grammatical or spelling errors that may have occurred using the system. documented in this encounter [facility] 01-28-2023 History of Presen t illness [...] . Note: This dictation was generated using Victor voice recognition software. Please excuse any grammatical or spelling errors that may have occurred using the system. documented in this encounter [facility] 09-09-2022 History of Presen t illness [...] . Note: This dictation was generated using Victor voice recognition software. Please excuse any grammatical or spelling errors that may have occurred using the system. documented in this encounter [facility] 05-28-2022 History of Presen t illness [...] . Note: This dictation was generated using Victor voice recognition software. Please excuse any grammatical or spelling errors that may have occurred using the system. 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 Please excuse any grammatical or spelling errors that may have occurred using the system. documented in this encounter [facility] 02-05-2022 History of Presen t illness [...] . Note: This dictation was generated using Victor voice recognition software. Please excuse any grammatical [...] people? Somewhat difficult documented in this encounter [facility] 10-02-2021 History of Presen t illness Narrative Patient informed of negative right breast biopsy results. Patient also informed of the need for a repeat mammogram and ultrasound in 6 months. Recall placed in computer. documented in this encounter [facility] 10-01-2021 History of Presen t illness [...] in good condition. documented in this encounter [facility] 10-01-2021 Instructions Elisha Fuentes RN - [...] at any time. documented in this encounter [facility] 10-01-2021 History of Presen t illness [...] by Kaitlin Tay. documented in this encounter [facility] 09-21-2021 History of Presen t illness Narrative Dr. Lim met with patient to discuss imaging results and recommendations. He is recommending surgical consult and Right ultrasound breast biopsy Explained Breast Health Nurse role in assisting patient scheduling, education, and support. Referral to Dr. Mcdaniel. Appointment scheduled with Dr. Mcdaniel on 10/01/[address] [facility]. Biopsy appointment scheduled on 10/01/[address] [facility]. Patient Accepted first available appointment offered for consultation and/or biopsy. Anticoagulants = None Allergies = ibuprofen, bee venom. After Visit Summary reviewed with patient to include appointment information, biopsy education and office contact information. All questions answered. documented in this encounter [facility] 09-21-2021 Instructions Elisha Fuentes RN - [...] must lie still during the procedure. The metal wire coating operator places warm gel on your breast and [...] at any time. 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 Self pay??-[facility] if [facility]- [phone] Order Specific Question: Reason for Exam: Answer: family history of breast cancer (mother) Order Specific Question: Is the patient ? Answer: No Order Specific Question: Release to patient Answer: Immediate No results found for this or any previous visit (from the past 336 hour(s)). Note: This dictation was generated using Victor voice recognition software. Please excuse any grammatical [...] is causing irritation. documented in this encounter [facility] 04-29-2021 History of Presen t illness Narrative Patient called [facility] with concern for COVID-19 and need for testing. [place]/ Department: [facility] Fever: no S/S : cough, sore throat, headache Known positive covid exposure?: no Per IDSA guidelines, testing is indicated. Suspect COVID, order placed. Patient aware this phone consult is for testing only. They will follow up with PCP/UC/ED for symptom management, if needed. documented in this encounter [facility] Evaluation note Diagnosis Encntr for obs for susp expsr to oth biolg agents ruled out- Primary [facility] Diagnosis Suppurative hidradenitis- Primary Hidradenitis Family history of breast cancer Family history of malignant neoplasm of breast Encounter for screening for malignant neoplasm of breast, unspecified screening modality [facility] Diagnosis Mass of right breast, unspecified quadrant- Primary [facility] Diagnosis Abnormal mammogram of right breast- Primary [facility] Diagnosis Current moderate episode of major depressive disorder without prior episode (HCC)- Primary [facility] Diagnosis Current moderate episode of major depressive disorder without prior episode (HCC)- Primary Needs flu shot Need for prophylactic vaccination and inoculation against influenza [facility]* Diagnosis Current moderate episode of major depressive disorder without prior episode (HCC)- Primary Overactive bladder Hypertonicity of bladder [facility] Diagnosis Prediabetes- Primary Other abnormal glucose Current moderate episode of major depressive disorder without prior episode (HCC) [facility]* Diagnosis Current moderate episode of major depressive disorder without prior episode (HCC)- Primary Prediabetes Other abnormal glucose Multiple joint complaints [facility]* Diagnosis Discharge from right nipple- Primary [facility] Diagnosis Family history of breast cancer- Primary Family history of malignant neoplasm of breast [facility] Diagnosis Nipple discharge- Primary Other sign and symptom in breast Family history of breast cancer in first degree relative Family history of malignant neoplasm of breast [facility] Diagnosis 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 [facility] Diagnosis Current moderate episode of major depressive disorder without prior episode (HCC)- Primary Prediabetes Other abnormal glucose Mastitis Inflammatory disease of breast [facility] Diagnosis Mastitis- Primary Inflammatory disease of breast [facility] Diagnosis Cellulitis of right breast- Primary Mastitis Inflammatory disease of breast [facility] Diagnosis Cellulitis of right breast- Primary History of lump of right breast Abscess of breast Inflammatory disease of breast [facility] Diagnosis Abscess of breast- Primary Inflammatory disease of breast Cellulitis of right breast [facility] Diagnosis Abscess of breast- Primary Inflammatory disease of breast Cellulitis of right breast [facility] Diagnosis Abscess of right breast- Primary Family history of breast cancer Family history of malignant neoplasm of breast [facility] Diagnosis Abscess of right breast- Primary Family history of breast cancer Family history of malignant neoplasm of breast [facility] assessment information [facility] Work Phone: Evaluation note* Diagnosis Pre-op examination Menorrhagia with regular cycle Pelvic pain in female Unspecified symptom associated with female genital organs Dysmenorrhea Dyspareunia in female [facility] Postoperative visit S/P D&C (status post dilation and curettage) Other postprocedural status [facility] Diagnosis Discharge from right nipple Irregular periods/menstrual cycles PCOS (polycystic ovarian syndrome) Polycystic ovaries [facility] Diagnosis Endometrial thickening on ultrasound Abnormal uterine bleeding (AUB) Irregular periods/menstrual cycles Pelvic pain in female Unspecified symptom associated with female genital organs Dysmenorrhea [facility] Diagnosis Pre-op examination Well woman exam Routine general medical examination at a health care facility Thickened endometrium Nonspecific (abnormal) findings on radiological and other examination of genitourinary organs Enlarged uterus Hypertrophy of uterus Pelvic pain in female Unspecified symptom associated with female genital organs Abnormal uterine bleeding (AUB) Well woman exam with routine gynecological exam Routine gynecological examination [facility] Diagnosis Encounter for postoperative care documented in [facility] encounter [facility] HealthcareInstructions* Attachments The following attachments cannot be sent through Care Everywhere. * Hidradenitis Suppurativa (Tuvaluan) [facility]* Attachments The following attachments cannot be sent through Care Everywhere. * Cervical: Exercises (Tuvaluan) [facility] * Tejinder Case MD - 03/18/2018 Continue to soak in warm water and dish soap, call Dr. Case symptoms worsens over the weekend, clindamycin 4 times daily as directed The following attachments cannot be sent through Care Everywhere. * Paronychia of the Finger or Toe (Tuvaluan) in this encounter* Instructions* Surekha Quintanilla MD [...] Podiatry Diagnoses Foot pain, right Yasmin Brown, ASSET ANALYST [address] [id number] Kalin Logan, MATTHEW [address] [place] [address] Status Reason Specialty Diagnoses / Procedures Re ferred By Contact Referred To Contact New Request Diagnoses Essential hypertension Procedures ECG Lana Lombardi APRN-CNP [address] [place] [address] Status Reason Specialty Diagnoses / Procedures Referred By Contact Referred To Contact New Request MARKETING/SALES PERSON Diagnoses Menorrhagia with regular cycle Lana Lombardi APRN-CNP [address] [place] [address] Susie Sheldon, DO [address] [place] [address] Status Reason Specialty Diagnoses / Procedures Referred By Contact Referred To Contact New Request Procedures ECG Lana Lombardi, PHYSICAL THERAPY MANAGER-ASSET ANALYST [address] [place] [address] Status Reason Specialty Diagnoses / Procedures Referred By Contact Referred To Contact Schedule Outgoing - Transfer of Care Psychiatry Diagnoses Post-traumatic stress Lana Lombardi, PHYSICAL THERAPY MANAGER-ASSET ANALYST [address] [place] [address] Specialty Diagnoses / Procedures Referred By Contac t Referred To Contact Radiology Diagnoses Encounter for screening for malignant neoplasm of breast, unspecified screening modality Procedures Mammography Screening Emile Bilateral Priya Jorge, ASSET ANALYST [address] [place] [address] Referral ID Status Reason Start Date Expiration Date V isits Requested Visits Authorized [id number] Authorized 09/10/2021 09/10/2022 1 1 Specialty Diagnoses / Procedures Referred By Contac t Referred To Contact Radiology Diagnoses Mass of right breast, unspecified quadrant Procedures US Breast Biopsy Right Ashley Mcdaniel III, MD [address] [place] [address] Referral ID Status Reason Start Date Expiration Date V isits Requested Visits Authorized [id number] New Request 09/21/2021 09/21/2022 1 1 Specialty Diagnoses / Procedures Referred By Contac t Referred To Contact Radiology Diagnoses Discharge from right nipple Procedures Mammography Diagnostic Emile Bilateral Ariana Garza PA-C [address] [place] [address] Referral ID Status Reason Start Date Expiration Date V isits Requested Visits Authorized [id number] Authorized 04/01/2023 03/31/2024 1 1 Specialty Diagnoses / Procedures Referred By Contac t Referred To Contact Radiology Diagnoses Discharge from right nipple Procedures US Breast Right Complete Conniff, Ariana Leon PA-C [address] [place] [address] Referral ID Status Reason Start Date Expiration Date V isits Requested Visits Authorized [id number] New Request 04/01/2023 03/31/2024 1 1 Specialty Diagnoses / Procedures Referred By Contac t Referred To Contact Genetics Diagnoses Family history of breast cancer Ashley Mcdaniel III, MD [address] [place] [address] [facility] [place] Referral ID Status Reason Start Date Expiration Date V isits Requested Visits Authorized [id number] Authorized 05/14/2023 05/13/2024 1 1 Specialty Diagnoses / Procedures Referred By Contac t Referred To Contact Radiology Diagnoses Nipple discharge Family history of breast cancer in first degree relative Procedures MR Breast Bilateral With And Without Contrast Ashley Mcdaniel III, MD [address] [place] [id number] Referral ID Status Reason Start Date Expiration Date V isits Requested Visits Authorized [id number] New Request 05/14/2023 05/13/2024 1 1 Specialty Diagnoses / Procedures Referred By Contac t Referred To Contact Radiology Procedures MR Breast Core Biopsy Right Ashley Mcdaniel III, MD [address] [place] [phone] Referral ID Status Reason Start Date Expiration Date V isits Requested Visits Authorized [id number] Pending Review 06/18/2023 06/17/2024 1 1 Specialty Diagnoses / Procedures Referred By Contac t Referred To Contact Radiology Procedures US Breast Biopsy Right Ashley Mcdaniel III, MD [address] [place] [id number] Referral ID Status Reason Start Date Expiration Date V isits Requested Visits Authorized [id number] Pending Review 06/18/2023 06/17/2024 1 1 Specialty Diagnoses / Procedures Referred By Contac t Referred To Contact Radiology Procedures US Breast Right Complete Ashley Mcdaniel III, MD [address] [place] [address] Referral ID Status Reason Start Date Expiration Date V isits Requested Visits Authorized [id number] New Request 06/18/2023 06/17/2024 1 1 Specialty Diagnoses / Procedures Referred By Contac t Referred To Contact Diagnoses Prediabetes Ariana Garza PA-C [address] [place] [address] Referral ID Status Reason Start Date Expiration Date Visits Re quested Visits Authorized [id number] Closed 1 1 Specialty Diagnoses / Procedures Referred By Contac t Referred To Contact Radiology Diagnoses Mastitis Procedures US Breast Right Complete Kumpnils, Tracy Licona II, MD [address] [place] [address] Referral ID Status Reason Start Date Expiration Date V isits Requested Visits Authorized [id number] New Request 09/30/2023 09/29/2024 1 1 Specialty Diagnoses / Procedures Referred By Contac t Referred To Contact Genetics Diagnoses Family history of breast cancer Alyssa Prakash CNP [address] [address] [facility] [place] Referral ID Status Reason Start Date Expiration Date V isits Requested Visits Authorized [id number] Authorized 01/12/2024 01/11/2025 1 1 Instructions * [...] your doctor if you can take an ekhp-kkv-gefucph medicine. Rest and protect your foot. Take [...] Log into your personal health record on [email or web address].[email or web address] and enter D999 in the Education box to learn more about Foot Pain: Care Instructions. Current as of: January 15, 2018 Content Version: 12.0 5631-3943 [employer]rise. Care instructions adapted under license by your healthcare professional. If you have questions about a medical condition or this instruction, always ask your healthcare professional. [employer]rise disclaims any warranty or liability for your [...] cushion your heel. You can buy these [employer] shoe stores. Use them in both shoes, [...] Log into your personal health record on [email or web address].Yatedo and enter S299 in the Education box to learn more about Heel Pain: Care Instructions. Current as of: January 18, 2018 Content Version: 12.0 8199-2915 Exoprise. Care instructions adapted under license by your healthcare professional. If you have questions about a medical condition or this instruction, always ask your healthcare professional. [employer]rise disclaims any warranty or liability for your use of this information. Follow up with the rabbit fancier. Ice, elevate and Tylenol. documented in this [...] may report side effects to FDA at 6-277-WCK-5689. What other drugs will affect losartan? Tell your doctor about all your other medicines, especially: a diuretic or water pill ; other blood pressure medications; lithium; or NSAIDs (nonsteroidal anti-inflammatory drugs) --aspirin, ibuprofen (Advil, Motrin), naproxen (Aleve), celecoxib, diclofenac, indomethacin, meloxicam, and others. This list is not complete. Other drugs may affect losartan, including prescription and mvge-uae-qypnuzw medicines, vitamins, and herbal products. Not all [...] to ensure that the information provided by [employer]. ('[employer]') is accurate, up-to-date, and complete, but no guarantee is made to that effect. Drug information contained herein may be time sensitive. [employer]bucks information has been compiled for use by healthcare practitioners and consumers in the [place] and therefore [employer] does not warrant that uses outside of the [place] are appropriate, unless specifically indicated otherwise. [employer] drug information does not endorse drugs, diagnose patients or recommend therapy. [employer] drug information isan informational resource designed to [...] effective or appropriate for any given patient. [facility] does not assume any responsibility for any aspect of healthcare administered with the aid of information [facility] provides. The information contained herein is not intended to cover all possible uses, directions, precautions, warnings, drug interactions, allergic reactions, or adverse effects. If you have questions about the drugs you are taking, check with your doctor, nurse or pharmacist. Copyright 5748-6656 Joan [employer]. Version: 16.01. Revision date: 08/05/2018. Care instructions adapted under license by your healthcare professional. If you have questions about a medical condition or this instruction, always ask your healthcare professional. Exoprise disclaims any warranty or liability for your [...] of daily or weekly servings for a 2,494-yfhpbgg-i-day diet. You may need more or less [...] DASH, visit: National Heart, Lung, and Blood Ragland at www.nhlbi.nih.gov/health/health-topics/topics/dash MedlinePlus at https://medlineplus.gov/dashdiet.html Adopt healthy [...] wedges, 1 tablespoon sunflower seeds, 1 teaspoon Ukrainian dressing 1 cup cantaloupe chunks cup fruit [...] cup raisins cup applesauce cup low-fat, low-sugar Luxembourger yogurt 1 low-fat mozzarella string cheese 2017October 26, 2018, [facility]. This handout is for informational purposes only. Talk with your doctor or healthcare team if you have any questions about your care. For more health information, call the [employer] (formerly [employer]) for [employer] Information at [phone] or email: [email or web address]. documented in this encounter* Patient Instructions* Lana [...] Where can you learn more? Go to http://www.[employer]enza [employer].osu.edu/patiented. Enter H967 in the search box to learn more about 'DASH Diet: Care Instructions.' Interested in seeing a video go to https://[employer].51Talku.edu/videolibrary to see all video content. Current as of: April 12, 2019 Content Version: 12.5 Exoprise. Care instructions adapted under license by your healthcare professional. If you have questions about a medical condition or this instruction, always ask your healthcare professional. [employer] disclaims any warranty or liability for your use of this information. documented in this encounter* Patient Instructions* Lana Lombardi APRN-CNP - 01/25/2019 1:00 PM EDT [facility] [place] [address] or [phone] A script for PAXIL has been sent to your paroxetine Pronunciation: yael GARCIA a teen Brand: Sendy Waddell, Sendy CR, Anupama What is the most important information [...] may report side effects to FDA at 1-524-DLD-6969. What other drugs will affect paroxetine? Taking paroxetine with other drugs that make you sleepy can worsen this effect. Ask your doctor before taking a sleeping pill, narcotic medication, muscle relaxer, or medicine for anxiety, depression, or seizures. Tell your doctor about all your current medicines and any you start or stop using, especially: cimetidine (Tagamet), Falkland's wort, tamoxifen, tryptophan (sometimes called L-tryptophan), warfarin [...] may interact with paroxetine, including prescription and jwbr-cmt-osibgen medicines, vitamins, and herbal products. Not all [...] to ensure that the information provided by [employer] ('[employer]') is accurate, up-to-date, and complete, but no guarantee is made to that effect. Drug information contained herein may be time sensitive. [employer] information has been compiled for use by healthcare practitioners and consumers in the [place] and therefore [employer] does not warrant that uses outside of the [place] are appropriate, unless specifically indicated otherwise. [employer] drug information does not endorse drugs, diagnose patients or recommend therapy. [employer] drug information isan informational resource designed to [...] effective or appropriate for any given patient. [employer] does not assume any responsibility for any aspect of healthcare administered with the aid of information [employer] provides. The information contained herein is not intended to cover all possible uses, directions, precautions, warnings, drug interactions, allergic reactions, or adverse effects. If you have questions about the drugs you are taking, check with your doctor, nurse or pharmacist. Copyright 9592-1416 [employer]. Version: 26.01. Revision date: 09/02/2016. Care instructions adapted under license by your healthcare professional. If you have questions about a medical condition or this instruction, always ask your healthcare professional. Exoprise disclaims any warranty or liability for your [...] ONE daily. buspirone Pronunciation: valerie riley Brand: BuSpar What is the most important information I [...] may report side effects to FDA at 4-215-CRA-3293. What other drugs will affect buspirone? Taking this medicine with other drugs that make you sleepy or slow your breathing can worsen these effects. Ask your doctor before taking buspirone with a sleeping pill, narcotic pain medicine, muscle relaxer, or medicine for anxiety, depression, or seizures. Other drugs may interact with buspirone, including prescription and mubu-fnj-qzjhzrn medicines, vitamins, and herbal products. Tell each [...] to ensure that the information provided by [employer]. ('[employer]') is accurate, up-to-date, and complete, but no guarantee is made to that effect. Drug information contained herein may be time sensitive. [employer] information has been compiled for use by healthcare practitioners and consumers in the [place] and therefore [employer] does not warrant that uses outside of the [place] are appropriate, unless specifically indicated otherwise. [employer] drug information does not endorse drugs, diagnose patients or recommend therapy. [employer] drug information isan informational resource designed to [...] effective or appropriate for any given patient. [employer] does not assume any responsibility for any aspect of healthcare administered with the aid of information [employer] provides. The information contained herein is not intended to cover all possible uses, directions, precautions, warnings, drug interactions, allergic reactions, or adverse effects. If you have questions about the drugs you are taking, check with your doctor, nurse or pharmacist. Copyright 5517-2589 [employer]. Version: 5.01. Revision date: 04/10/2015. Care instructions adapted under license by your healthcare professional. If you have questions about a medical condition or this instruction, always ask your healthcare professional. [employer] disclaims any warranty or liability for [...] 11:13 AM EDT PATIENT NAME: Lele Dacosta [facility] [address] [place] [id number] : 1985 DATE OF VISIT: 10/13/2018 #: [...] file Gets together: Not on file Attends jehovah's witness service: Not on file Active member of [...] weight loss and diet. Offered referral to health concierge. Pt declined at this time. 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 Going to counseling at [facility] in [place]. She has previously tried Zoloft and Lexapro. [...] times daily as needed. 60 tablet 1 deinwbkh-qqdfxoqdk-hawogoflmbdka [id number] 1 drop in both eyes [...] Lele presents after having been seen at [facility] ER on 12/05/19. States pain seemed to start around the same time as her period. 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 [...] Lele reports she has been having some alf problems with her periods, and some accompanying [...] told she was too young by her gutter installer negative for - incontinence or urinary frequency/urgency [...] with regular cycle N92.0 AMB REFERRAL TO OB-DIAMOND SAW OPERATOR Assessment and Plan Chronic right-sided low [...] Uterine ablation discussed. - AMB REFERRAL TO OB-DIAMOND SAW OPERATOR Other orders - cyclobenzaprine 10 MG [...] Reports normal stress. Previously seeing counselor at [facility] in [place] but cannot afford it at $140/hr. Elevated [...] buspirone. documented in this encounter* Lana Lombardi, PHYSICAL THERAPY MANAGER-ASSET ANALYST - 01/25/2019 1:00 PM EDT Depression: Lele [...] recommended. Online referral has been [facility] in [place]. Pt does not want to be seen in [place]. Online referral made for her , as [...] is going to counselingat [facility] in [place], as recommended at her last appointment. She [...] her two small children with her today. [place], appropriate interaction between mother and children. ICD-10-CM [...] PTSD. She is going to counseling at [facility] in [place]. On paroxetine. Feels that medication is partly working as she feels less anxious. States her left her acouple of weeks ago. documented in this encounter* Maikel Leal MD - 08/04/2020 11:02 AM EDT Patient: Lele Loen : 1985 Date: 08/04/20 This 35 y.o. 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 Social Needs Financial resource strain: Not hard [...] Gets together: Three times a week Attends jehovah's witness service: Never Active member of club or [...] FoundDocuments on File Type Date Recorded Patient Associate Store Leader Expl anation Advance Directives and Living Will Documents on File Type Date Recorded Patient Associate Store Leader Expl anation Advance Directives and Living Will Documents on File Type Date Recorded Patient Associate Store Leader Expl anation Advance Directives and Livin g [...] Establish Care Was with Dr Brennan in [facility]- seen him once- but is hanging because she works in [employer] now.Was seeing a counselor but they decided [...] Surgery Diagnoses Galactorrhea Ariana Garza PA-C [address] [place] [address] Ashley Mcdaniel III, MD [address] [place] [address] Referral ID Status Reason Start Date Expiration Date Visits Re quested Visits Authorized [id number] Closed 04/25/2023 04/24/2024 1 1 Reason Onset Date Comments Results 07/03/2023 Reason Comments Follow-up No issues Specialty Diagnoses / Procedures Referred By Kofi beltran Referred To Contact Plastic Surgery Diagnoses History of lump of right breast Ariana Garza PA-C [address] [place] [address] Tracy Alejandre II, MD [address] [place] [address] Referral ID Status Reason Start Date Expiration Date Visits Re quested Visits Authorized [id number] Closed 09/24/2023 09/23/2024 1 1 Reason Comments Initial Visit (Intake) Right nipple Disc harge.CAT 3.[place] Imaging Reason Comments Post-op Visit Pt present for a pos t operative visit. Pt had a D&C on 02/13/2024. Reason Comments discuss procedure Reason Comments Well Women Visit Pre-op Visit Reason Comments Post-op Visit INFORMATION SOURCE (unrecogn ized section and content) DATE CREATED AUTHOR 10/17/2018 [facility] DATE CREATED AUTHOR AUTHOR'S ORGANIZ ATION 12/25/2019 Xiomara Santacruz spidante DATE CREATED AUTHOR AUTHOR'S ORGANIZ ATION 12/15/2020 [facility] DATE CREATED AUTHOR AUTHOR'S ORGANIZ ATION 07/31/2023 [facility] DATE CREATED AUTHOR AUTHOR'S ORGANIZ ATION 11/12/2023 [facility] DATE CREATED AUTHOR AUTHOR'S ORGANIZ ATION 11/29/2023 [facility] DATE CREATED AUTHOR AUTHOR'S ORGANIZ ATION 01/15/2024 [facility] DATE CREATED AUTHOR AUTHOR'S ORGANIZ ATION 01/27/2024 [facility] DATE CREATED AUTHOR AUTHOR'S ORGANIZ ATION 04/08/2024 [facility] DATE CREATED AUTHOR AUTHOR'S ORGANIZ ATION 05/16/2024 [facility] Surekha Gary MD - [...] file Gets together: Not on file Attends jehovah's witness service: Not on file Active member of [...] above information. . Surekha Quintanilla MD 12/06/19 [id number] documented in this encounter Care Teams (unrecognized sec tion and content) Stamp Analyst Relationship Specialty Start Date End Date Maikel Leal MD [address] [place] [address] PCP - General Family Medicine 08/04/20 Love Jimenez, ASSET ANALYST [address] [place] [address] PCP - [facility] Provider - [facility] 01/27/20 04/27/50 Stamp Analyst Relationship Specialty Start Date End Date Maikel Leal MD [address] [place] [address] PCP - General Family Medicine 08/04/20 Love Jimenez, ASSET ANALYST [address] [place] [address] PCP - JASBIR Attributed Provider - [facility] 01/27/20 04/27/50 Stamp Analyst Relationship Specialty Start Date End Date Maikel Leal MD [address] [place] [address] PCP - General Family Medicine 08/04/20 Love Jimenez, ASSET ANALYST [address] [place] [address] PCP - JASBIR Attributed Provider - [facility] 01/27/20 04/27/50 Elisha Fuentes, RN Patient Navigator Nursing 09/21/21 Stamp Analyst Relationship Specialty Start Date End Date Maikel Leal MD [address] [place] [address] PCP - General Family Medicine 08/04/20 Love Jimenez, ASSET ANALYST [address] [place] [address] PCP - JASBIR Attributed Provider - [facility] 01/27/20 04/27/50 Elisha Fuentes, RN Patient Navigator Nursing 09/21/21 Stamp Analyst Relationship Specialty Start Date End Date Maikel Leal MD [address] [place] [address] PCP - General Family Medicine 08/04/20 Love Jimenez, ASSET ANALYST [address] [place] [address] PCP - JASBIR Attributed Provider - [facility] 01/27/20 04/27/50 Elisha Fuentes, RN Patient Navigator Nursing 09/21/21 Stamp Analyst Relationship Specialty Start Date End Date Maikel Leal MD [address] [place] [address] PCP - General Family Medicine 08/04/20 Love Jimenez CNP [address] [place] [address] PCP - JASBIR Attributed Provider - [facility] 01/27/20 04/27/50 Stamp Analyst Relationship Specialty Start Date End Date Love Jimenez CNP [address] [place] [id number] PCP - JASBIR Attributed Provider - [facility] 01/27/20 04/27/50 Love Jimenez CNP [address] [place] [phone] PCP - JASBIR Attributed Provider - [facility] 01/27/20 04/27/50 Ariana Garza PA-C [address] [place] [address] PCP - General Physician Certified Histologic Technician 02/05/22 Stamp Analyst Relationship Specialty Start Date End Date Love Jimenez CNP [address] [place] [phone] PCP - JASBIR Attributed Provider - [facility] 01/27/20 04/27/50 Love Jimenez CNP [address] [place] [address] PCP - JASBIR Attributed Provider - [facility] 01/27/20 04/27/50 Ariana Garza PA-C [address] [place] [address] PCP - General Physician Certified Histologic Technician 02/05/22 Stamp Analyst Relationship Specialty Start Date End Date Ariana Garza PA-C [address] [place] [address] PCP - General Physician Certified Histologic Technician 02/05/22 Stamp Analyst Relationship Specialty Start Date End Date Ariana Garza PA-C [address] [place] [address] PCP - General Physician Certified Histologic Technician 02/05/22 Stamp Analyst Relationship Specialty Start Date End Date Ariana Garza PA-C [address] [place] [address] PCP - General Physician Certified Histologic Technician 02/05/22 Stamp Analyst Relationship Specialty Start Date End Date Ariana Garza PA-C [address] [place] [address] PCP - General Physician Certified Histologic Technician 02/05/22 Stamp Analyst Relationship Specialty Start Date End Date Ariana Garza PA-C [address] [place] [address] PCP - General Physician Certified Histologic Technician 02/05/22 Stamp Analyst Relationship Specialty Start Date End Date Ariana Garza PA-C [address] [place] [address] PCP - General Physician Certified Histologic Technician 02/05/22 Stamp Analyst Relationship Specialty Start Date End Date Ariana Garza PA-C [address] [place] [address] PCP - General Physician Certified Histologic Technician 02/05/22 Stamp Analyst Relationship Specialty Start Date End Date Ariana Garza PA-C [address] [place] [address] PCP - General Physician Certified Histologic Technician 02/05/22 Klaudia Marley, RN Registered Nurse Nursing 06/18/23 Stamp Analyst Relationship Specialty Start Date End Date Ariana Garza PA-C [address] [place] [address] PCP - General Physician Certified Histologic Technician 02/05/22 Klaudia Marley, RN Registered Nurse Nursing 06/18/23 Stamp Analyst Relationship Specialty Start Date End Date Ariana Garza PA-C [address] [place] [address] PCP - General Physician Certified Histologic Technician 02/05/22 Stamp Analyst Relationship Specialty Start Date End Date Ariana Garza PA-C [address] [place] [address] PCP - General Physician Certified Histologic Technician 02/05/22 Stamp Analyst Relationship Specialty Start Date End Date Ariana Garza PA-C [address] [place] [address] [place] [address] PCP - General Physician Certified Histologic Technician 02/05/22 Stamp Analyst Relationship Specialty Start Date End Date Love Jimenez, DAMARIS [address] [place] [address] [address]CP - [facility] Provider - [facility] 01/27/20 04/27/50 Ariana Garza PA-C [address] [place] [address] PCP - General Physician Certified Histologic Technician 02/05/22 Stamp Analyst Relationship Specialty Start Date End Date Love Jimenez CNP [address] [place] [phone] PCP - JASBIR Attributed Provider - [facility] 01/27/20 04/27/50 Ariana Garza PA-C [address] [place] [address] PCP - General Physician Certified Histologic Technician 02/05/22 Stamp Analyst Relationship Specialty Start Date End Date Love Jimenez CNP [address] [place] [phone] PCP - JASBIR Attributed Provider - [facility] 01/27/20 04/27/50 Ariana Garza PA-C [address] [place] [address] PCP - General Physician Certified Histologic Technician 02/05/22 Stamp Analyst Relationship Specialty Start Date End Date Hawk [place] [address] Consulting Physician Obstetrics/Gynecology 01/12/24 Alyssa Prakash, DAMARIS Juli Fatima [address] [address] Nurse Practitioner 01/12/24 Stamp Analyst Relationship Specialty Start Date End Date Hawk Anaya DO [address] [place] [address] Consulting Physician Obstetrics/Gynecology 01/12/24 Alyssa Prakash CNP [address] [place] [address] Nurse Practitioner 01/12/24 Team Status: Inactive Member [...] BE BASED ON THE PRIMARY CLINICAL RECORDS. [facility]. provides no warranty or guarantee of the accuracy or completeness of information in this document.
[2025-01-04 11:33] LABS: Hematocrit 41.3 % (36.0-48.0); Hemoglobin 13.8 g/dL (12.0-16.0); Immature Granulocytes Abs Auto 0.03 10^3/uL (0.00-0.03); Immature Granulocytes Pct Auto 0.3 % (0.0-0.5); Lymphocytes Absolute Auto 2.7 10^3/uL (1.2-3.8); Mean Corpuscular HGB Conc 33.4 g/dL (29.9-35.2); Mean Corpuscular Hemoglobin 31.1 pg (26.7-34.0); Mean Corpuscular Volume 93.0 fL (81.0-99.0); Platelet Count 285 10^3/uL (150-450); Red Blood Count 4.44 10^6/uL (4.20-5.40); White Blood Count 9.3 10^3/uL (4.0-11.0)
[2025-01-04 13:25] LABS: Alanine Aminotransferase 19 U/L (14-59); Albumin Globulin Ratio 0.9; Albumin Level 3.7 g/dL (3.4-5.0); Alkaline Phosphatase 90 U/L (46-116); Anion Gap 15.4; Aspartate Amino Transferase 20 U/L (15-37); Blood Urea Nitrogen 10.0 mg/dL (7.0-18.0); Calcium 8.9 mg/dL (8.5-10.1); Carbon Dioxide 24.5 mmol/L (21.0-32.0); Chloride 105 mmol/L (98-107); Estimated GFR (African America >60 (>=60 mL/min/1.73m^2); Estimated GFR (Non-African Ame >60 (>=60 mL/min/1.73m^2); Free T3 3.06 pg/mL (2.18-3.98); Globulin 4.1 g/dL; Glucose 98 mg/dL (74-106); NT Pro B Type Natriuretic Pept 147.0 pg/mL (<=450.0); Potassium 3.9 mmol/L (3.5-5.1); Sodium 141 mmol/L (136-145); Thyroid Stimulating Hormone 1.686 uIU/mL (0.358-3.740); Total Protein 7.8 g/dL (6.4-8.2)
== END 2025-01-04 10:04 | disposition home or self-care (01) ==
PROVIDERS: PCP Family Medicine; Visit Provider Family Medicine
DX: R60.9 Edema, unspecified (principal)
CPT/HCPCS: 36415; 80053; 83880; 84436; 84443; 84481; 85025; 87040; 93971

== ENCOUNTER 2025-02-08 15:07 | Outpatient (REF) | payer OTHER, SELFPAY ==
--- OUTSIDE RECORDS SUMMARY | 2025-02-08 10:00 | XMS_ITS | Encounter Summary ---
Author Organization [facility] Address [address] [place] [address] Care Team Providers Care Water Quality Manager Name Role Phone Tani Gandhi MD Primary Care Provider [phone] Reason for Visit * Reason Comments Gynecologic Exam Encounter Details Date Type Department Care Team (Late st Contact Info) Description 02/08/2025 10:00 AM EDT Office Visit [facility] [address] [place] [phone] Hawk Anaya DO [address] [place] [address] Well woman exam with routine gynecological exam; H/O: hysterectomy Social History Tobacco Use Types Packs/Day Years Used Date Smoking Tobacco: Every Day Cigarettes 1 20.7 Started: 05/29/2004 Smokeless Tobacco: Never Alcohol Use Standard Drinks/Week Comments Never 0 (1 standard drink = 0.6 oz pur e alcohol) Alcohol use rarely Comments No Sex and Gender Information Value Date Recorded Sex Assigned at Not on file Legal Sex Female 1:25 PM EDT Gender Identity Not on file Sexual Orientation Not on file documented as of this encounter Last Filed Vital Signs Vital Sign Reading Time Taken Comments Blood Pressure 128/78 02/08/2025 10:05 AM EDT Pulse - - Temperature - - Respiratory Rate - - Oxygen Saturation - - Inhaled Oxygen Concentration - - Weight 128 kg (283 lb) 02/08/2025 10:05 AM EDT Height 160 cm (5' 3 ) 02/08/2025 10:05 AM EDT Body Mass Index 50.13 02/08/2025 10:05 AM EDT documented in this encounter Progress Notes * Korina Randall, SAW MAN - 02/08/2025 10:00 AM EDT Reason for Appointment: Patient ID: Anca Gates is a 39 y.o. female who presents for Gynecologic Exam Patient presents today for Annual Exam. 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 Obesity, morbid, BMI 40.0-49.9 ([facility]) 11/24/2018 Resolved Ambulatory Problems Diagnosis Date Noted No Resolved Ambulatory Problems Past Medical History: Diagnosis Date Abnormal blood sugar Long Q-T syndrome Menorrhagia HISTORY PAST MEDICAL HISTORY SOCIAL HISTORY Medical History[2] Social History Tobacco Use Smoking status: Every Day Current packs/day: 1.00 Average packs/day: 1 pack/day for 20.7 years (20.7 ttl pk-yrs) Types: Cigarettes Start date: 05/29/2004 Smokeless tobacco: Never Substance Use Topics Alcohol use: Never Comment: Alcohol use rarely Drug use: Never FAMILY HISTORY Family History[3] SURGICAL HISTORY Surgical History[4] REVIEW OF SYSTEMS Review of Systems: Review of Systems Constitutional: Negative. HENT: Negative. Eyes: Negative. Respiratory: Negative. Cardiovascular: Negative. Gastrointestinal: Negative. Genitourinary: Negative. Musculoskeletal: Negative. Skin: Negative. Neurological: Negative. All other systems reviewed and are negative. Hematological: Negative. Endocrine: Negative. Allergic/Immunologic: Negative. OBJECTIVE Objective: Physical Exam Constitutional: Appearance: Normal appearance. She is well-developed. Genitourinary: Vulva normal. Vaginal cuff intact. Cervix is absent. Uterus is absent. Cardiovascular: Rate and Rhythm: Normal rate and regular rhythm. Abdominal: General: Bowel sounds are normal. There [...] nursing note reviewed. Exam conducted with a instrument calibrator present. Vitals: Estimated body mass index is 50.13 kg/m?? as calculated from the following: Height as of this encounter: 5' 3 . Weight as of this encounter: 283 lb. BP: 128/78 No LMP recorded (lmp unknown). Patient has had a hysterectomy. ASSESSMENT & PLAN ICD-10-CM 1. Well woman exam with routine gynecological exam Z01.419 Pap Smear HPV DNA probe, amplified 2. H/O: hysterectomy Z90.710 Orders Placed This Encounter Procedures HPV DNA probe, amplified Annual Wellness Exam (Post Hysterectomy): Patient presents today for routine annual exam. Patient states she has no current complaints. Patients vitals were reviewed and within normal limits. Growth and development is noted to be appropriate for age. Menstrual history is noted to be obsolete due to patients history of hysterectomy. No mental health concerns was expressed. Pap Smear: Speculum was inserted into the vagina and pap was obtained without difficulty. HPV testing was performed per guidelines. Patient was advised that pap results could take anywhere from 7 to 10 days to receive and our office will reach out to the patient with those once we have them. Patient can also view results via WhatsOpent. I reinforced importance of condom use for STI prevention. Patient declined cultures to be performed with today's visit. Breast Exam: Upon examination, clinical breast exam was noted to be normal. Patient was counseled on breast self-awareness, including the importance of knowing what is normal for her own breasts and promptly reporting any changes such as new lumps, skin dimpling, nipple discharge, or pain. Screening mammogram recommended annually beginning at age 40 or earlier if risk factors are present. Discussed signs and symptoms of breast cancer and when to seek medical attention. Answered all patient questions. Follow Up: Patient is to return to our office in one year for annual exam unless needed otherwise. Documented by Korina Randall LPN on behalf of: Hawk Anaya DO [1] Allergies Allergen Reactions Bee Venom Anaphylaxis Ibuprofen Nausea And Vomiting Other Reaction(s): GI Intolerance Severe vomiting Other Reaction(s): vomiting [2] Past Medical History: Diagnosis Date Abnormal blood sugar Long Q-T syndrome Menorrhagia [3] Family History Problem Relation Name Age of Onset Breast cancer Mother Diabetes type II Mother Other (essential hypertension) Mother Diabetes type II Father Cancer Sister 4 1 Sister Dx with Lymphoma [4] Past Surgical History: Procedure Laterality Date BREAST BIOPSY Right x2 2023-top, 2022-bottom CYST REMOVAL hand DILATION AND CURETTAGE OF UTERUS 2010 DILATION AND CURETTAGE OF UTERUS 02/13/2024 HYSTERECTOMY documented in this encounter Plan of Treatment Upcoming Encounters Date Type Department Care Team (Late st Contact Info) Description 03/02/2025 10:15 AM EST Office Visit [facility] [address] [phone] Kenny Escobar MD [address] [facility] [address] [place] [address] 02/14/2026 10:00 AM EDT Procedure Visit [facility] [address] [place] [phone] Hawk Anaya DO [address] [place], [place] [phone] Scheduled Orders Name Type Priority Associated Diagnoses Orde r Schedule Pap Smear Pathology and Cytology Routine Well woman exam with routine gynecological exam Ordered: 02/08/2025 HPV DNA probe, amplified Microbiology Routine Well woman exam with routine gynecological exam Ordered: 02/08/2025 documented as of this encounter Visit Diagnoses Diagnosis Well woman exam with routine gynecological exam Routine gynecological examination H/O: hysterectomy Acquired absence of both cervix and uterus documented in this encounter Care Teams Water Quality Manager Relationship Specialty Start Date End Date Tani Gandhi MD [address] [facility] [place] [phone] PCP - General Family Medicine 01/19/25 documented as of this encounter
--- OUTSIDE RECORDS SUMMARY | 2025-02-08 15:11 | XMS_ITS | Encounter Summary ---
Author Organization [facility] Address [address] [facility] [place] [address] Care Team Providers Care Movement Therapist Name Role Phone Tani Gandhi MD Primary Care Provider [phone] Encounter Details Date Type Department Care Team (Late st Contact Info) Description 01/30/2024 Abstract [facility] [address] [place] [address] Hawk Anaya DO [address] [facility] [address] [place], [place] [phone] Social History Tobacco Use Types Packs/Day Years Used Date Smoking Tobacco: Never Assessed Comments No Sex and Gender Information Value Date Recorded Sex Assigned at Not on file Legal Sex Female 1:25 PM EDT Gender Identity Not on file Sexual Orientation Not on file documented as of this encounter Plan of Treatment Upcoming Encounters Date Type Department Care Team (Late st Contact Info) Description 03/02/2025 10:15 AM EST Office Visit [facility] [address] [phone] Kenny Escobar MD [address] [address] 02/14/2026 10:00 AM EDT Procedure Visit [facility] [address] [facility] [address] [place] [address] Hawk Anaya DO [address] [place], [place] [phone] documented as of this encounter Visit Diagnoses Not on filedocumented in this encounter Care Teams Movement Therapist Relationship Specialty Start Date End Date Tani Gandhi MD [address] [place] [address] PCP - General Family Medicine 01/19/25 documented as of this encounter
--- OUTSIDE RECORDS SUMMARY | 2025-02-08 15:11 | XMS_ITS | Encounter Summary ---
Author Organization [facility] Address [address] [facility] [place] [address] Care Team Providers Care Thread Checker Name Role Phone Tani Gandhi MD Primary Care Provider [phone] Encounter Details Date Type Department Care Team (Late st Contact Info) Description 01/01/2024 Abstract [facility] [address] [facility] [place] [address] Hawk Anaya DO [address] [address] [place] [place], [place] [phone] Social History Tobacco Use Types Packs/Day Years [...] EST Office Visit [facility] [address] [phone] Kenny Escobar MD [address] [address] 02/14/2026 10:00 AM EDT Procedure Visit [facility] [address] [facility] [place] [address] Hawk Anaya DO [address] [place], [place] [phone] documented as of this encounter Visit Diagnoses Not on filedocumented in this encounter Care Teams Thread Checker Relationship Specialty Start Date End Date Tani Gandhi MD [address] [place] [address] PCP - General Family Medicine 01/19/25 documented as of this encounter
--- OUTSIDE RECORDS SUMMARY | 2025-02-08 15:11 | XMS_ITS | Encounter Summary ---
Author Organization [facility] Address [address] [facility] [place] [address] Care Team Providers Care Kids Club Attendant Name Role Phone Tani Gandhi MD Primary Care Provider [phone] Encounter Details Date Type Department Care Team (Late st Contact Info) Description 01/08/2024 Abstract [facility] [address] [facility] [place] [address] Lore Vivar LPN [address] [place] [phone] Social History Tobacco Use Types Packs/Day Years [...] EST Office Visit [facility] [address] [phone] Kenny Escobar MD [address] [address] 02/14/2026 10:00 AM EDT Procedure Visit [facility] [address] [facility] [place] [address] Hawk Anaya DO [address] [facility] [address] [place], [place] [address] documented as of this encounter Visit Diagnoses Not on filedocumented in this encounter Care Teams Kids Club Attendant Relationship Specialty Start Date End Date Tani Gandhi MD [address] [place] [address] PCP - General Family Medicine 01/19/25 documented as of this encounter
--- OUTSIDE RECORDS SUMMARY | 2025-02-08 15:11 | XMS_ITS | Encounter Summary ---
Author Organization [facility] Address [address] [facility] [address] Care Team Providers Care Clinical Services Director Name Role Phone Tani Gandhi MD Primary Care Provider [phone] Encounter Details Date Type Department Care Team (Late st Contact Info) Description 12/25/2023 Abstract [facility] [address] [facility] [place] [address] Hawk Anaya DO [address] [facility] [address] [place], [place] [phone] Social History Tobacco Use Types Packs/Day Years Used Date Smoking Tobacco: Never Assessed Comments Unknown Sex and Gender Information Value Date Recorded Sex Assigned at Not on file Legal Sex Female 1:25 PM EDT Gender Identity Not on file Sexual Orientation Not on file documented as of this encounter Plan of Treatment Upcoming Encounters Date Type Department Care Team (Late st Contact Info) Description 03/02/2025 10:15 AM EST Office Visit [facility] [address] [phone] Kenny Escobar MD [address] [address] 02/14/2026 10:00 AM EDT Procedure Visit [facility] [address] [facility] [place] [address] Hawk Anaya DO [address] [place], [place] [address] documented as of this encounter Visit Diagnoses Not on filedocumented in this encounter Care Teams Clinical Services Director Relationship Specialty Start Date End Date Tani Gandhi MD [address] [place] [address] PCP - General Family Medicine 01/19/25 documented as of this encounter
--- OUTSIDE RECORDS SUMMARY | 2025-02-08 15:11 | XMS_ITS | Encounter Summary ---
Author Organization [facility] Address [address] [place] [address] Care Team Providers Care Ms Sql Server Developer Name Role Phone Tani Gandhi MD Primary Care Provider [phone] Encounter Details Date Type Department Care Team (Late st Contact Info) Description 12/23/2023 Clinisync Result Encounter [facility] External Department Unsolicited Lidya Anaya, DO [address] [place], [place] [phone] Social History Tobacco Use Types Packs/Day Years [...] EST Office Visit [facility] [address] [phone] Kenny Escobar MD [address] [address] 02/14/2026 10:00 AM EDT Procedure Visit [facility] [address] [facility] [place] [phone] Lidya Anaya, DO [address] [place], [place] [phone] documented as of this encounter Procedures Procedure Name Priority Date/Time Associated Diagnosis Comments US PELVIS W/ TRANSVAGINAL 12/23/2023 6:34 AM EDT documented in this encounter Results * US PELVIS W/ TRANSVAGINAL (12/23/2023 6:34 AM EDT) Anatomical Region Laterality Modality Other 12/23/2023 6:34 AM EDT Narrative 12/23/2023 6:37 [place] [address] Ultrasound Report Signed Patient: LELE MONTOYA MR#: [id number] : 1985 Acct:[id number] Age/Sex: 38 / F ADM Date: 12/22/23 Loc: [facility] Attending Dr: Lidya Anaya D.O. Ordering Physician: Lidya Anaya D.O. Date of Service: 12/22/23 Procedure(s): US pelvis w/ transvaginal Accession Number(s): [id number] cc: Lidya Anaya D.O.; Physician,Non-Staff M.DSommer [address] [address] Patient Name: LELE MONTOYA MRN: [id number] date: 1985 Sex: F Assigned Patient Location: [facility] Current Patient Location: Accession/Order Number: [id number] Exam Date: 12/22/2023 08:56 Report Date: 12/23/2023 06:34 At the request of: LIDYA ANAYA Procedure: US pelvis w/ transvaginal EXAMINATION: US pelvis w/ transvaginal HISTORY: IRREGULAR PERIODS COMPARISON: No relevant comparison available. TECHNIQUE: Transabdominal and/or transvaginal sonographic examination was performed as indicated by examination type. FINDINGS: UTERUS: Slightly prominent and heterogeneous. Uterus size: 11.1 x 5.6 x 9.2 cm ENDOMETRIUM: Heterogeneous and abnormally thickened. Endometrial thickness: 32 mm RIGHT OVARY: Normal size and appearance. Blood flow present within ovary on color Doppler. . Ovary size: 2.6 x 1.2 x 2.4 cm LEFT OVARY: Normal size and appearance. Duplex Doppler demonstrates normal waveform and flow; resistive index 0.5. Ovary size: 1.8 x 2.4 x 2.6 cm CUL-DE-SAC: Unremarkable. No significant free fluid. BLADDER: Unremarkable. OTHER: None. US/US pelvis w/ transvaginal IMPRESSION: 1. Slightly limited examination due to patient body habitus. 2. Heterogeneous and markedly thickened endometrium, 32 mm. Endometrial hyperplasia? Electronically authenticated by: JEROME WAGGONER Date: 12/23/2023 06:34 Dictated By: Jerome Waggoner M.D. Signed By: 12/23/2337 DD/ 3 TD/TT: Ceramic Tiler: Procedure Note Radiology, Radiologist, MD - 12/23/2023 [place] [address] Ultrasound Report Signed Patient: LELE MONTOYA BMR#: [id number] : 1985Acct:[id number] Age/Sex: 38 / FADM Date: 12/22/23 Loc: [facility] Attending Dr: Lidya Anaya D.O. Ordering Physician: Lidya Anaya D.O. Date of Service: 12/22/23 Procedure(s): US pelvis w/ transvaginal Accession Number(s): [id number] cc: Lidya Anaya D.O.; Physician,Non-Staff [place] [id number] Patient Name: LELE MONTOYA MRN: [id number] date: 1985 Sex: F Assigned Patient Location: [facility] Current Patient Location: Accession/Order Number: [id number] Exam Date: 12/22/2023 08:56 Report Date: 12/23/2023 06:34 At the request of: LIDYA ANAYA Procedure: US pelvis w/ transvaginal EXAMINATION: US pelvis w/ transvaginal HISTORY: IRREGULAR PERIODS COMPARISON: No relevant comparison available. TECHNIQUE: Transabdominal and/or transvaginal sonographic examination was performed as indicated by examination type. FINDINGS: UTERUS: Slightly prominent and heterogeneous. Uterus size: 11.1 x 5.6 x9.2 cm ENDOMETRIUM: Heterogeneous and abnormally thickened. Endometrialthickness: 32 mm RIGHT OVARY: Normal size and appearance. Blood flow present within ovaryon color Doppler. . Ovary size: 2.6 x 1.2 x 2.4 cm LEFT OVARY: Normal size and appearance. Duplex Doppler demonstrates normal waveform and flow; resistive index 0.5. Ovary size: 1.8 x 2.4 x 2.6 cm CUL-DE-SAC: Unremarkable. No significant free fluid. BLADDER: Unremarkable. OTHER: None. US/US pelvis w/ transvaginal IMPRESSION: 1. Slightly limited examination due to patient body habitus. 2. Heterogeneous and markedly thickened endometrium, 32 mm. Endometrial hyperplasia? Electronically authenticated by: JEROME WAGGONER Date: 12/23/2023 06:34 Dictated By: Jerome Waggoner M.D. Signed By:12/23/2337 DD/ TD/TT: Ceramic Tiler: [facility] Final Result documented in this encounter Visit Diagnoses Not on filedocumented in this encounter Care Teams Ms Sql Server Developer Relationship Specialty Start Date End Date Tani Gandhi MD [address] [place] [address] PCP - General Family Medicine 01/19/25 documented as of this encounter
--- OUTSIDE RECORDS SUMMARY | 2025-02-08 15:11 | XMS_ITS | Patient Health Record ---
Author Organization [facility] [place] Address [address] [place] [address] Care Team Providers Care Diabetes Trainer Name Role Phone Kamron Gandhi Primary Care Provider Allergies Allergen (clinical drug ingredient) Drug/Non Drug Allergy documented on EMR Reaction Allergy Type Onset Date Status ibuprofen Ibuprofen vomiting Drug Allergy Active Results Component Value Reference Range Notes BNP Reviewed date:01/04/2025 02:23:01 PM Interpretation: Performing Lab: Notes/Report: [facility] , NT Pro B Type Natriuretic Pept 147.0 <=450.0 pg/mL Performing Lab: see note ML - [facility] LB CBC AUTO DIFF Reviewed date:01/04/2025 02:23:01 PM Interpretation: Performing Lab: Notes/Report: [facility] , White Blood Count 9.3 4.0-11.0 10 3/uL Red Blood Count 4.44 4.20-5.40 10 6/uL Hemoglobin 13.8 12.0-16.0 g/dL Hematocrit 41.3 36.0-48.0 % Mean Corpuscular Volume 93.0 81.0-99.0 fL Mean Corpuscular Hemoglobin 31.1 26.7-34.0 pg Mean Corpuscular HGB Conc 33.4 29.9-35.2 g/dL Red Cell Distribution Width 13.6 11.0-15.0 % Platelet Count 285 150-450 10 3/uL Mean Platelet Volume 11.0 9.5-13.5 fL Neutrophils Percent Auto 62.8 43.0-75.0 % Lymphocytes Percent Auto 29.4 20.5-60.0 % Monocytes Percent Auto 5.6 1.7-12.0 % Eosinophils Percent Auto 1.4 0.9-7.0 % Basophils Percent Auto 0.5 0.2-2.0 % Immature Granulocytes Pct Auto 0.3 0.0-0.5 % Neutrophils Absolute Auto 5.8 1.4-6.5 10 3/uL Lymphocytes Absolute Auto 2.7 1.2-3.8 10 3/uL Monocytes Absolute Auto 0.5 0.3-0.8 10 3/uL Eosinophils Absolute Auto 0.1 0.0-0.7 10 3/uL Basophils Absolute Auto 0.1 0.0-0.1 10 3/uL Immature Granulocytes Abs Auto 0.03 0.00-0.03 10 3/uL Performing Lab: see note ML - [facility] LB PROF 14(COMP METB) Reviewed date:01/04/2025 02:23:01 PM Interpretation: Performing Lab: Notes/Report: [facility] , Sodium 141 136-145 mmol/L Potassium 3.9 3.5-5.1 mmol/L Chloride 105 98-107 mmol/L Carbon Dioxide 24.5 21.0-32.0 mmol/L Anion Gap 15.4 Glucose 98 74-106 mg/dL Blood Urea Nitrogen 10.0 7.0-18.0 mg/dL Creatinine 0.59 0.55-1.02 mg/dL Estimated GFR ( Ericka >60 >=60 mL/min/1.73m 2 Estimated GFR (Non- Jeanne >60 >=60 mL/min/1.73m 2 BUN Creatinine Ratio 16.9 Calcium 8.9 8.5-10.1 mg/dL Bilirubin Total 0.3 0.2-1.0 mg/dL Aspartate Amino Transferase 20 15-37 U/L Alanine Aminotransferase 19 14-59 U/L Alkaline Phosphatase 90 46-116 U/L Total Protein 7.8 6.4-8.2 g/dL Albumin Level 3.7 3.4-5.0 g/dL Globulin 4.1 Albumin Globulin Ratio 0.9 Performing Lab: see note ML - [facility] LB Blood Culture 1 Reviewed date:01/09/2025 04:45:04 PM Interpretation: Performing Lab: Notes/Report: [facility] , Blood Culture 1 See Below For Report Blood Culture 1 NG5D NO GROWTH AT 5 DAYS.^NO GROWTH AT 5 DAYS. Performing Lab: see note ML - [facility] LB Blood Culture 2 Reviewed date:01/09/2025 04:45:04 PM Interpretation: Performing Lab: Notes/Report: [facility] , Blood Culture 2 See Below For Report Blood Culture 2 NG5D NO GROWTH AT 5 DAYS.^NO GROWTH AT 5 DAYS. Performing Lab: see note ML - [facility] LB FREE T3 Reviewed date:01/04/2025 02:23:01 PM Interpretation: Performing Lab: Notes/Report: [facility] , Free T3 3.06 2.18-3.98 pg/mL Performing Lab: see note ML - [facility] LB T4 Reviewed date:01/04/2025 02:23:01 PM Interpretation: Performing Lab: Notes/Report: [facility] , T4 Thyroxine 10.00 4.80-13.90 ug/dL Performing Lab: see note ML - [facility] LB TSH Reviewed date:01/04/2025 02:23:01 PM Interpretation: Performing Lab: Notes/Report: [facility] , Thyroid Stimulating Hormone 1.686 0.358-3.740 u IU/mL Performing Lab: see note ML - [facility] LB Reason For Referral Reason R breast with cellul itis - area of clip - second opinion Diagnosis 1 Cellulitis (L03.90) Referral Organization [facility] Referring Provider First Name Kamron Referring Provider Last Name [facility] Referred Provider Edwin Baxter Referred Provider Specialty General Surg richard Referral Priority Routine Diagnosis 1 Mastitis chronic (N6 0.19) Diagnosis 2 Cellulitis (L03.90) Referral Organization [facility] Referring Provider First Name Kamron Referring Provider Last Name [facility] Referring Provider [facility] Referred Provider Nicho Whyte Referred Provider Specialty General Surg richard Referral Priority Routine Medications Medication SIG (Take, Route, Fr equency, Duration) Notes Start Date End Date Status [facility] Active metroNIDAZOLE 500 MG [address] ee times a day; Duration: 10 days 01/04/2025 Active levoFLOXacin 750 MG 1 tablet Orally Once a day; Duration: 10 day(s) 01/04/2025 Active Meloxicam 15 MG 1 tablet Orally Once a day; Duration: 30 days 01/04/2025 Active Turmeric Active Social History Tobacco Use: Social History Observation Description Date Details (start date - stop date) Current Smoker 05/29/2004 - NA Tobacco Control (Standard) Question Answer Notes Tobacco use: Current smoker When did you start smoking? 05/29/2004 How often do you smoke cigarettes? Every day How many cigarettes a day do you smoke? 11-20 How soon after you wake up d o you smoke your first cigarette? 6-30 minutes Are you interested in quitting? Thinking about q uitting AUDIT-C (Standard) Question Answer Notes Did you have a drink containing alcohol in the p ast year? No Points 0 Interpretation Negative Problems Problem Type SNOMED Code ICD Code Onset Dates Problem Status W/U Status Risk Notes Problem Hypertension (31590709) Hypertension (I10) Active confirmed Problem Edema (12527552) Edema (R60.9) Active confirmed Problem Depression (714575134) Depression (F32.9) Active confirmed Problem Well adult (871770741) Well adult (Z00.00) Active confirmed Problem Cellulitis (159035706) Cellulitis (L03.90) Active confirmed Problem Chronic mastitis (79071703) Mastitis chronic (N60.19) Active confirmed Vital Signs Temperature 98.4 degrees Fahrenheit 01/04/2025 Blood pressure diastolic 80 mm Hg 01/04/2025 Height 63 in 01/04/2025 Blood pressure systolic 134 mm Hg 01/04/2025 Weight 288.2 lbs 01/04/2025 BMI 51.05 kg/m2 01/04/2025 Encounters Encounter Location Date Provider Diagnosis [facility] [address] [place] [address] 06/03/2024 Kamron Santacruzy Well adult Z00.00 [facility] [address] [place] [address] 10/15/2024 Kamron Hoy [facility] [address] [place] [address] 06/30/2024 Kamron Hoy Hypertension I10 [facility] [address] [place] [address] 09/02/2024 Kamron Hoy Hypertension I10 and Encounter for medication review Z79.899 [facility] [address] [place] [address] 01/04/2025 Kamron Hoy Edema R60.9 and Cellulitis L03.90 [facility] [address] [place] [address] 10/15/2024 Kamron Hoy Hypertension I10 [facility] [address] [place] [address] 01/04/2025 Kamron Hoy Mastitis chronic N60 .19 and Cellulitis L03.90 [facility] [address] [place] [address] 01/04/2025 Kamron Hoy [facility] [address] [place] [address] 01/05/2025 Kamron Hoy Assessments Encounter Date Diagnosis (ICD Code) Assessment Notes Treatment Notes Treatment Clinical Notes Section Notes 06/03/2024 Well adult (ICD-10 - Z00.00) 06/30/2024 Hypertension (ICD-10 - I10) had Hypertesnion before stating the adipex - not coming down yet - will start meds 09/02/2024 Hypertension (ICD-10 - I10) 09/02/2024 Encounter for medication review (ICD-10 - Z79.899) 01/04/2025 Edema (ICD-10 - R60.9) 01/04/2025 Cellulitis (ICD-10 - L03.90) 10/15/2024 Hypertension (ICD-10 - I10) 01/04/2025 Cellulitis (ICD-10 - L03.90) 01/04/2025 Mastitis chronic (ICD-10 - N60.19) Plan Of Treatment Pending Test Test Name Order Date US RUBÉN DOP LEG RT 01/04/2025 THYROID PANEL (T4/TSH/FREE T3) 5 Insurance Providers Payer Name Payer Address Payer Phone Subscriber Number Group Number Insured Name Patient Relationship to Insured Coverage Start Date Coverage End Date [address] [place], [place] [phone] [id number] Anca Gates Self - patient is the insured Medical (General) History Medical History History ICD Code Mastitis chronic N60.19 Depression F32.9 Surgical History Surgery Date(Month/Year) Right Breast biopsies with clips Hysterectomy
--- OUTSIDE RECORDS SUMMARY | 2025-02-08 15:11 | XMS_ITS | Encounter Summary ---
Author Organization [facility] Address [address] [facility] [place] [address] Care Team Providers Care Serger Name Role Phone Tani Gandhi MD Primary Care Provider [phone] Encounter Details Date Type Department Care Team (Late st Contact Info) Description 03/31/2024 Abstract [facility] [address] [facility] [place] [address] Hawk Anaya DO [address] [facility] [address] [place], [place] [phone] Social History Tobacco Use Types Packs/Day Years [...] EST Office Visit [facility] [address] [phone] Kenny Escobar MD [address] [address] 02/14/2026 10:00 AM EDT Procedure Visit [facility] [address] [facility] [place] [address] Hawk Anaya DO [address] [place], [place] [phone] documented as of this encounter Visit Diagnoses Not on filedocumented in this encounter Care Teams Serger Relationship Specialty Start Date End Date Tani Gandhi MD [address] [place] [address] PCP - General Family Medicine 01/19/25 documented as of this encounter
--- OUTSIDE RECORDS SUMMARY | 2025-02-08 15:11 | XMS_ITS | Encounter Summary ---
Author Organization [facility] Address [address] [facility] [place] [address] Care Team Providers Care Athletic Coach Name Role Phone Tani Gandhi MD Primary Care Provider [phone] Encounter Details Date Type Department Care Team (Late st Contact Info) Description 03/31/2024 Abstract [facility] [address] [facility] [place] [address] Hawk Anaya DO [address] [facility] [address] [place], [place] [phone] Social History Tobacco Use Types Packs/Day Years [...] EST Office Visit [facility] [address] [phone] Kenny Escobar MD [address] [address] 02/14/2026 10:00 AM EDT Procedure Visit [facility] [address] [facility] [address] Hawk Anaya DO [address] [place], [place] [phone] documented as of this encounter Visit Diagnoses Not on filedocumented in this encounter Care Teams Athletic Coach Relationship Specialty Start Date End Date Tani Gandhi MD [address] [place] [address] PCP - General Family Medicine 01/19/25 documented as of this encounter
--- OUTSIDE RECORDS SUMMARY | 2025-02-08 15:11 | XMS_ITS | Encounter Summary ---
Author Organization [facility] Address [address] [facility] [place] [address] Care Team Providers Care Hazardous Materials Analyst Name Role Phone Tani Gandhi MD Primary Care Provider [phone] Encounter Details Date Type Department Care Team (Late st Contact Info) Description 04/01/2024 Abstract [facility] [address] [place] [address] Hawk Anaya DO [address] [facility] [address] [place] [place], [place] [phone] Social History Tobacco Use Types Packs/Day Years [...] EST Office Visit [facility] [address] [phone] Kenny Escobar MD [address] [address] 02/14/2026 10:00 AM EDT Procedure Visit [facility] [address] [place] [address] Hawk Anaya DO [address] [place], [place] [phone] documented as of this encounter Visit Diagnoses Not on filedocumented in this encounter Care Teams Hazardous Materials Analyst Relationship Specialty Start Date End Date Tani Gandhi MD [address] [place] [address] PCP - General Family Medicine 01/19/25 documented as of this encounter
--- OUTSIDE RECORDS SUMMARY | 2025-02-08 15:11 | XMS_ITS | Encounter Summary ---
Author Organization [facility] Address [address] [place] [address] Care Team Providers Care Bus Aide Name Role Phone Tani Gandhi MD Primary Care Provider [phone] Encounter Details Date Type Department Care Team (Late st Contact Info) Description 01/29/2024 Clinisync Result Encounter NOMS External Department Unsolicited Lidya Anaya, DO [address] [place], [place] [phone] Social History Tobacco Use Types Packs/Day Years [...] EST Office Visit [facility] [address] [phone] Kenny Escobar MD [address] [address] 02/14/2026 10:00 AM EDT Procedure Visit [facility] [address] [facility] [place] [phone] Lidya Anaya, DO [address] [place], [place] [address] documented as of this encounter Procedures Procedure Name Priority Date/Time Associated Diagnosis Comments ECG 12-LEAD 01/29/2024 12:57 PM EDT documented in this encounter Results * ECG 12-LEAD (01/29/2024 12:57 PM EDT) Anatomical Region Laterality Modality Other 01/29/2024 12:5 7 PM EDT Narrative 01/29/2024 7:51 [place] [address] Electrocardiograph Report Signed Patient: LELE MONTOYA MR#: [id number] : 1985 Acct:[id number] Age/Sex: 38 / F ADM Date: 01/29/24 Loc: PST Attending Dr: Lidya Anaya D.O. Ordering Physician: Lidya Anaya D.O. 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 Signed By: 01/29/241950 DD/ 1257 TD/TT: Business Systems Consultant: Procedure Note Radiology, Radiologist, MD - 01/29/2024 [place] [id number] Electrocardiograph Report Signed Patient: LELE MONTOYA BMR#: [id number] : 1985Acct:[id number] Age/Sex: 38 / FADM Date: 01/29/24 Loc: PST Attending Dr: Lidya Anaya D.O. Ordering Physician: Lidya Anaya D.O. 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 Signed By:01/29/24 195 DD/ 1257 TD/TT: Business Systems Consultant: us Lidya Anaya DO [facility] Final Result documented in this encounter Visit Diagnoses Not on filedocumented in this encounter Care Teams Bus Aide Relationship Specialty Start Date End Date Tani Gandhi MD [address] [place] [address] PCP - General Family Medicine 01/19/25 documented as of this encounter
--- OUTSIDE RECORDS SUMMARY | 2025-02-08 15:11 | XMS_ITS | Encounter Summary ---
Author Organization [facility] Address [address] [facility] [place] [address] Care Team Providers Care Handbag Framer Name Role Phone Tani Gandhi MD Primary Care Provider [phone] Encounter Details Date Type Department Care Team (Late Contact Info) Description 02/08/2025 Bamboo flowsheet [facility] [address] [facility] [address] [facility] [place] [address] Hawk Anaya DO [address] [facility] [address] Social History Tobacco Use Types Packs/Day Years [...] EST Office Visit [facility] [address] [phone] Kenny Escobar MD [address] [id number] 02/14/2026 10:00 AM EDT Procedure Visit [facility] [address] [place] [id number] Hawk Anaya DO [address] [place] [address] [place] [address] documented as of this encounter Visit Diagnoses Not on filedocumented in this encounter Care Teams Handbag Framer Relationship Specialty Start Date End Date Tani Gandhi MD [address] [facility] [place] [address] PCP - General Family Medicine 01/19/25 documented as of this encounter
--- OUTSIDE RECORDS SUMMARY | 2025-02-08 15:11 | XMS_ITS | Encounter Summary ---
Author Organization [facility] Address [address] [facility] [place] [address] Care Team Providers Care Brush Worker Name Role Phone Tani Gandhi MD Primary Care Provider [phone] Encounter Details Date Type Department Care Team (Late st Contact Info) Description 01/27/2024 Orders Only [facility] [address] [employer] [place] [address] Kaleigh Novoa LPN [address] [facility] [place] [facility] Social History Tobacco Use Types Packs/Day Years [...] EST Office Visit [facility] [address] [phone] Kenny Escobar MD [address] [address] 02/14/2026 10:00 AM EDT Procedure Visit [facility] [address] [place] [address] Hawk Anaya DO [address] [place] [address] documented as of this encounter Procedures Procedure Name Priority Date/Time Associated Diagnosis Comments PAP SMEAR Routine 01/20/2024 12:00 AM EDT documented in this encounter Results * Pap Smear (01/20/2024 12:00 AM EDT) Swab Cervical swab / Unknown us Héctor Nurse [facility] CYTOLOGY ORDERABLES Final Result EXTERNAL LAB documented in this encounter Visit Diagnoses Not on filedocumented in this encounter Care Teams Brush Worker Relationship Specialty Start Date End Date Tani Gandhi MD [address] [place] [phone] PCP - General Family Medicine 01/19/25 documented as of this encounter
--- OUTSIDE RECORDS SUMMARY | 2025-02-08 15:11 | XMS_ITS | Clinical Summary ---
Author Organization [facility] Address [address] [facility] [place] [address] Care Team Providers Care Cinder Worker Name Role Phone Tani Gandhi MD Primary Care Provider [phone] Allergies Active Allergy Reactions Criticality Noted Date Comments Bee Venom Anaphylaxis High 11/24/2018 Ibuprofen Nausea And Vomiting High 03/18/2018 Other Reaction(s): GI Intolerance Severe vomiting Other Reaction(s): vomiting Medications lisinopril 10 MG tablet Take 10 mg by mouth Daily 09/30/2024 Active meloxicam (Mobic) 15 MG tablet 1 (one) time each day at the same time 01/04/2025 Active Active Problems Problem Noted Date Diagnosed Date Mastitis chronic 01/19/2025 Duct ectasia of breast, 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 Discharge from right nipple 12/15/2023 Obesity, morbid, BMI 40.0-49.9 11/24/2018 Encounters Date Type Department Care Team Description 02/08/2025 10:00 AM EDT Office Visit [facility] [address] [place] [address] Hawk Anaya DO Well woman exam with routine gynecological exam; H/O: hysterectomy 02/08/2025 Bamboo flowsheet [facility] [address] [place] [address] Hawk Anaya DO 01/19/2025 11:00 AM EDT Consult [facility] [address] [place] [address] [address] [place] [address] Kenny Escobar MD Duct ectasia of breast, right (Primary Dx); Mastitis chronic; Nipple discharge; Cellulitis, unspecified 01/19/2025 Travel 01/18/2025 Travel 01/17/2025 Travel 01/13/2025 Travel 01/10/2025 Travel 01/07/2025 Travel from Last 3 Months Family History Medical History Relation Name Comments Diabetes type II Father Breast cancer Mother Diabetes type II Mother essential hypertension Mother Cancer Sister 4 1 Sister Dx wit h Lymphoma Relation Name Status Comments Brother 2 Father Mother Sister 4 Alive Social History Tobacco Use Types Packs/Day Years Used Date Smoking Tobacco: Every Day Cigarettes 1 20.7 Started: 05/29/2004 Smokeless Tobacco: Never Tobacco Cessation:Ready to Q uit: Not Asked; Counseling Given: Not Answered Alcohol Use Standard Drinks/Week Comments Never 0 (1 standard drink = 0.6 oz pur e alcohol) Alcohol use rarely Comments No Sex and Gender Information Value Date Recorded Sex Assigned at Not on file Legal Sex Female 1:25 PM EDT Gender Identity Not on file Sexual Orientation Not on file Last Filed Vital Signs Vital Sign Reading Time Taken Comments Blood Pressure 128/78 02/08/2025 10:05 AM EDT Pulse - - Temperature - - Respiratory Rate - - Oxygen Saturation - - Inhaled Oxygen Concentration - - Weight 128 kg (283 lb) 02/08/2025 10:05 AM EDT Height 160 cm (5' 3 ) 02/08/2025 10:05 AM EDT Body Mass Index 50.13 02/08/2025 10:05 AM EDT Plan of Treatment Upcoming Encounters Date Type Department Care Team (Late st Contact Info) Description 03/02/2025 10:15 AM EST Office Visit [facility] [address] [address] Kenny Escobar MD [address] [address] 02/14/2026 10:00 AM EDT Procedure Visit [facility] [address] [facility] [place] [address] Hawk Anaya DO [address] [facility] [place] [address] Health Maintenance Due Date Last Done Comments HPV/Cotest 2016 Influenza Vaccine (#1) 2024 03/05/2022, 2020, 03/24/2002 Cervical Cancer Screening 01/19/2027 Pap Smear 01/19/2027 01/20/2024, 05/08/2020 Procedures Procedure Name Priority Date/Time Associated Diagnosis Comments PAP SMEAR Routine 01/20/2024 12:00 AM EDT from Last 3 Months or Most Recently Relevant to Health Maintenance Results * Pap Smear (01/20/2024 12:00 AM EDT) Swab Cervical swab / Unknown Héctor Nurse [facility] CYTOLOGY ORDERABLES Final Result EXTERNAL LAB from Last 3 Months or Most Recently Relevant to Health Maintenance Insurance [employer] Care Teams Cinder Worker Relationship Specialty Start Date End Date Tani Gandhi MD [address] [facility] [place] [phone] PCP - General Family Medicine 01/19/25
--- OUTSIDE RECORDS SUMMARY | 2025-02-08 15:11 | XMS_ITS | Clinical Summary ---
Author Organization [facility] Address [facility] [place] [address] Care Team Providers Care Sustainability Analyst Name Role Phone Hawk Anaya DO Unavailable [phone] Majo Pablo FRACTIONATION SUPERVISOR Unavailable [phone] Allergies Active Allergy Reactions Criticality Noted Date Comments Bee Venom Protein (Honey Bee) Anaphylaxis High 11/24 Ibuprofen GI Intolerance High 10/13/2018 Severe vomiting Medications multivitamin (THERAGRAN) per tablet Take 1 (one) tablet by mouth daily . Active flu vac qv 2021,18yr up,rcm-PF (FLUBLOK QUAD) syringeIndicati ons:Needs flu shot Sign this order in conjunction with the immunization order to satisfy [place] Board [employer] Pharmacy Positive ID requirements for immunization orders. . 0.5 mL 2 Active buPROPion (Wellbutrin XL) 300 MG 24 hr tabletIndicatio ns:Current moderate episode of major depressive disorder without prior episode (HCC) Take 1 (one) tablet (300 mg total) by mouth daily . 90 tablet 1 4 Active Additional Information Patient not taking.Reported on 01/12/2024 metFORMIN (GLUCOPHAGE-XR) 500 MG 24 hr tabletIndicatio ns:Prediabetes Take 1 (one) tablet (500 mg total) by mouth daily with breakfast . 90 tablet 1 4 Active Additional Information Patient not taking.Reported on 01/12/2024 blood-glucose sensor (FreeStyle Melania 3 Sensor) DeviIndications :Prediabetes For continuous glucose monitoring. Change every 14 days . 2 each 1 4 Active Additional Information Patient not taking.Reported on 01/12/2024 doxycycline hyclate (VIBRA-TABS) 100 MG tabletIndicatio ns:Mastitis Take 1 (one) tablet (100 mg total) by mouth 2 (two) times a day . 14 tablet 4 Active Additional Information Patient not taking.Reported on 01/12/2024 Active Problems Problem Noted Date Diagnosed Date Obesity, morbid, BMI 40.0-49.9 11/24/2018 Immunizations Immunization Administration Dates Next Due INFLUENZA IIV4 19 YO OR > FLUBLOK QUAD [address] 11/2021 Family History Medical History Relation Comments Breast cancer Maternal Aunt Prostate cancer Maternal Grandfather Breast cancer Mother Cancer Mother Breast Lymphoma Sister Relation Status Comments Maternal Aunt Maternal Grandfather Mother Sister Social History Tobacco Use Types Packs/Day Years Used Date Smoking Tobacco: Former Cigarettes 1 12 Smokeless Tobacco: Former Quit: 03/12/2020 Alcohol Use Standard Drinks/Week Comments Not Currently 0 (1 standard drink = 0.6 oz pur e alcohol) rare Humiliation, Afraid, Rape, and Kick questionnair e Answer Date Recorded Within the last year, have y ou been afraid of your partner or ex-partner? No 08/04/2020 Within the last year, have y ou been humiliated or emotionally abused in other ways by your partner or ex-partner? No Within the last year, have y ou been kicked, hit, slapped, or otherwise physically hurt by your partner or ex-partner? No 08/04/2020 Within the last year, have y ou been raped or forced to have any kind of sexual activity by your partner or ex-partner? No 08/04/2020 Social Connection and Isolat ion Panel [NHANES] Answer Date Recorded In a typical week, how many times do you talk on the phone with family, friends, or neighbors? More than three times a week 08/04/2020 How often do you get togethe r with friends or relatives? Three times a week 08/04/2020 How often do you attend [facility] or latter day services? Never 08/04/2020 Do you belong to any clubs o r organizations such as cheondoism groups, unions, fraternal or athletic groups, or school groups? No 08/04/2020 How often do you attend meet ings of the clubs or organizations you belong to? Never 08/04/2020 Are you , , di vorced, , never , or living with a partner? 08/04/2020 AUDIT-C Answer Date Recorded Q1: How often do you have a drink containing alc ohol? Never 08/04/2020 Average Number of Drinks Not on file 021 Frequency of Binge Drinking Not on file 12/2020 Overall Financial Resource Strain (CARDIA) Answe r Date Recorded How hard is it for you to pa y for the very basics like food, housing, medical care, and heating? Not very hard 04/01/2023 PHQ-2 Answer Date Recorded PHQ-9 Total Score 10 01/23/2023 [facility] - Occupational Stress Questionnaire Answer Date Recorded Do you feel stress - tense, restless, nervous, or anxious, or unable to sleep at night because your mind is troubled all the time - these days? Not at all 08/04/2020 Exercise Vital Sign Answer Date Recorde d On average, how many days pe r week do you engage in moderate to strenuous exercise (like a brisk walk)? 0 days 08/04/2020 On average, how many minutes do you engage in exercise at this level? 0 min 08/04/2020 Hunger Vital Sign Answer Date Recorded Within the past 12 months, y ou worried that your food would run out before you got the money to buy more. Never true 04/01/20 23 Within the past 12 months, t he food you bought just didn't last and you didn't have money to get more. Never true 04/01/2023 PRAPARE - Transportation Answer Date Re corded In the past 12 months, has l ack of transportation kept you from medical appointments or from getting medications? No 08/2022 In the past 12 months, has l ack of transportation kept you from meetings, work, or from getting things needed for daily living? 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 Not on file Not on file Not on file Last Filed Vital Signs Vital Sign Reading Time Taken Comments Blood Pressure 129/91 08/19/2023 9:00 AM EDT Pulse 86 08/19/2023 8:38 AM EDT Temperature 36.8 C (98.2 F) 09/10/2022 1:12 PM EDT Respiratory Rate 16 09/10/2022 1:12 PM EDT Oxygen Saturation 97% 08/19/2023 8:3 8 AM EDT Inhaled Oxygen Concentration - - Weight 135 kg (297 lb 9.6 oz) 10:26 AM EDT ACTUAL WEIGHT Height 157.5 cm (5' 2 ) 01/26/2024 10:2 6 AM EDT Body Mass Index 54.43 01/26/2024 10:26 AM EDT Plan of Treatment Health Maintenance Due Date Last Done Comments Tetanus: Every 10yrs 1986 Depression Screening/Follow-Up (PHQ-2/9) 01/24/2024 01/23/2023 COVID-19 Vaccine ( season) 2024 04/13/2021, 03/15/2021 Influenza Vaccine (#1) 2024 , 03/27/2021, 03/24/2002 Wellness Visit 06/03/2025 06/03/2024, 02/09/2024, 01/20/2024, Additional history exists Cervical Cancer Screening Discontinued HPV/Cotest Discontinued 01/20/2024 Pap Smear Discontinued 01/20/2024, 05/08/2020 HIV Screening Discontinued Hepatitis C Screening Discontinued Pneumococcal Vaccine: Ped or At-Risk Aged Out No longer eligible based on patient's age to complete this topic Procedures Procedure Name Priority Date/Time Associated Diagnosis Comments THINPREP PAP SMEAR Routine 05/08/2020 3: 06 PM EST Screening for malignant neoplasm of cervix Urge incontinence of urine Abnormal uterine bleeding (AUB) from Last 3 Months or Most Recently Relevant to Health Maintenance Results * Thinprep Pap Smear (05/08/2020 3:06 PM EST) Case Report Gynecologic Cytology Report Case: [id number] Authorizing Provider: Jayne Perdomo MD Collected: 05/08/2020 03:06 PM Ordering Location: [facility] EXTERIOR DOOR INSTALLER - An Received: 05/09/2020 10:06 AM [facility] First Screen: Kelsy Jacobsen Specimen: THINPREP PAP SMEAR, Cervix 05/12/2020 3:48 PM EST [facility] LMP Unknown 05/12/2020 3:48 PM EST [facility] Interpretation Negative for intraepithelial lesion or malignancy 05/12/2020 3:48 PM EST [facility] at 1548 EST Specimen Adequacy Satisfactory for evaluation, endocervical/diallo sformation zone component absent/insufficie nt 05/12/2020 3:48 PM EST [facility] Educational Note The Pap smear is a screening test for the detection of cervical cancer and its precursor lesions. False positive and false negative results can occur. The test should be performed at regular intervals, and positive results should be confirmed before definitive therapy. Additional testing methods may be helpful in detecting abnormalities or in clinical management. Specimen processing and Primary Screening performed at: [facility] - [address] [place] [id number] 05/12/2020 3:[address] [facility] Pap, Liquid Based CERVIX UTERI STRUCTURE / Unknown 05/08/2020 3:06 PM EST 05/09/2020 10:06 AM EST us Jayne Perdomo MD PATHOLOGY/CYTOLOGY ORDER JASS Final Result [facility] [address] [place] [id number] from Last 3 Months or Most Recently Relevant to Health Maintenance Insurance [employer]PL[employer]EE [place] [id number] [place] [facility] Care Teams Sustainability Analyst Relationship Specialty Start Date End Date Hawk Anaya DO [address] [place] [address] Consulting Physician Obstetrics/Gynecology 01/12/24 Majo Pablo CNP [address] [address] Nurse Practitioner 01/12/24
--- OUTSIDE RECORDS SUMMARY | 2025-02-08 15:20 | XMS_ITS | CCD ---
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 Name Role Phone Jose Manuel Falcon Unavailable No, Physician Primary Care Provider Unavailabl e NO, PHYSICIAN Primary Care Unavailable YASMIN BROWN Attending Unavail able YASMIN BROWN Admitting Unavail able YASMIN BROWN Referring Unavail able NO, PHYSICIAN Primary Care Unavailable Lana Lombardi Primary Care Provider Maikel Leal Primary Care Provider [phone] ROXIE HUSSEIN Attending Unavailabl e MAIKEL LEAL Primary Care Unavailable GUSTAVO, PHYSICIAN Primary Care Unavailable SAMUEL MONTERO Attending Unavail able Maikel Leal MD Primary Care Provider Love Jimenez CNP Unavailable [phone] Maikel Leal MD Primary Care Provider Love Jimenez CNP Unavailable Elisha Fuentes RN Unavailable Unavailable Barbara Love OCAMPO Unavailable [phone] Ariana Garza PA-C Primary Care Provide r [...] REYES Primary Care Unavailab le KUMPF II, TRCAY VALLES Attending Unavailable KUMPF II, TRACY VALLES [...] CONNIFF, ARIANA REYES Primary Care Unavailab le Héctor DO, Hawk R Unavailable Dwain OCAMPO, Alyssa Gaytan Unavailable [phone] Sasha Alcala Attending Unavailable HéctorLamonty Referring Unavailable KAYLA, ARIANA REYES Primary Care Unavailab le DWAIN, ALYSSA GAYTAN Attending Unavailable ALYSSA PRAKASH Attending Unavailable Unavailable Primary Care Provider Unavailabl e DO Hawk Anyaa Attending Provider [phone] Héctor, Hawk Admitting Unavailable HéctorLamonty Attending Unavailable Héctor, Hawk Attending Unavailable Héctor, Hawk Admitting Unavailable Mayela Mann MD Primary Care Provider SORIN HODGSON Attending Unavailable MAYELA MANN Referring Unavailable LAMONT ANAYAY Attending Unavailable HARPER ROSALES Attending Unavailable HARPER ROSALES Attending Unavailable Allergies Allergy Classification Reported Allergen(s) Allergy Type Date of Onset Reaction(s) Facility NSAIDs (1 source) Ibuprofen Drug Allergy 9 GI Intolerance [facility] (20 sources) Ibuprofen; Translations: [Unknown] Drug Allergy 8 Nausea and Vomiting, GI Intolerance [facility] Work Phone: (20 sources) bee venom Propensity to adverse reactions to drug 9 Anaphylaxis [facility] (5 sources) BEE VENOM PROTEIN (HONEY BEE); Translations: [BEE VENOM PROTEIN (HONEY BEE)] Propensity to adverse reactions to drug (disorder) 9 [facility] (1 source) Ibuprofen Drug Allergy 4 [facility] (20 sources) Honey bee venom Propensity to adverse reactions 9 Anaphylaxis [facility] Work Phone: Medications Current Medications Medication Drug [...] / neomycin 3.5 mg/ml / polymyxin b 65339 unt/ml ophthalmic suspension (1 source) Aminoglycoside Antibacterial, Polymyxin-class Antibacterial, Corticosteroid Start: 05-07-2019 End: 06-10-2019 take 1 drop(s) into the eye(s) every four hours hgmqtrhn-fentypzbm-liuppuaqxmjhk 3.5-03613-8.[address] 1 drop in both eyes every 4 hours while awake. 5 mL 0 05/07/2019 06/10/2019 Discontinued 30 ml EPINEPHrine 0.005 mg/ml / lidocaine hydrochloride 10 mg/ml injection (1 source) Antiarrhythmic, alpha-Adrenergic Agonist, beta-Adrenergic Agonist, Catecholamine, Amide Local Anesthetic Start: 03-18-2018 End: 03-18-2018 lidocaine-epinephrine 1%-1:2 34130 injection SOLN 10 mL Start: 03-18-2018 End: 03-18-2018 lidocaine-epinephrine 1%-1:2 57471 injection SOLN 10 mL lidocaine 0.05 mg/mg [...] moderate] Onset: 01-23-2023 Chronic Nonmalignant breast conditions (4 sources) Chronic mastitis; Translations: [Diffuse cystic mastopathy of unspecified breast] Onset: 01-19-2025 01-19-2025 Chronic Nonmalignant breast conditions (20 sources) Lump in right breast; Translations: [Unspecified lump in the right breast, unspecified quadrant] Onset: 04-01-2023 Episodic Other aftercare (4 sources) Postoperative visit; Translations: [...] of other specified conditions] Onset: 10-22-2023 Episodic Skin and subcutaneous tissue infections (1 source) Cellulitis; Translations: [Cellulitis, unspecified] 01-19-2025 Episodic Spondylosis; intervertebral disc disorders; other back [...] WITH AUTO DIFFon BASOPHILS ABSOLUTE AUTO 0 [facility] Basophils/100 WBC (Bld) 0.3 % 0.2 - 2.0 % [facility] Eosinophils/100 WBC (Bld) 2.1 % 0.9 - 7.0 % [facility] Erythrocyte distribution width (RBC) [Ratio] 13.8 % 11.0 - 15.0 % [facility] Hematocrit (Bld) [Volume fraction] 38.6 % 36.0 - 48.0 % [facility] Hem[facility] (Bld) [Mass/Vol] 12.8 g/dL 12.0 - 16.0 g/dL [facility] IMMATURE GRANULOCYTES ABS AUTO 0.02 [facility] Immature granulocytes/100 WBC (Bld) 0.2 % 0.0 - 0.5 % [facility] LYMPHOCYTES ABSOLUTE AUTO 2.5 [facility] Lymphocytes/100 WBC (Bld) 27.9 % 20.5 - 60.0 % [facility] MCH (RBC) [Entitic mass] 29.1 pg 26.7 - 34.0 pg [facility] MCHC (RBC) [Mass/Vol] 33.2 g/dL 29.9 - 35.2 g/dL [facility] MCV (RBC) [Entitic vol] 87.7 fL 81.0 - 99.0 fL [facility] MONOCYTES ABSOLUTE AUTO 0.7 [facility] Monocytes/100 WBC (Bld) 8 % 1.7 - 12.0 % [facility] NEUTROPHILS ABSOLUTE AUTO 5.5 [facility] Neutrophils/100 WBC (Bld) 61.5 % 43.0 - 75.0 % [facility] Platelet mean volume (Bld) [Entitic vol] 9.9 fL 9.5 - 13.5 fL [facility] EO # 0.2 [facility] PLT 338 [facility] TB RBC 4.4 [facility] WBC 9 [facility] [place] 03-31-2024 L - -------- Specimen: [id number] Received: 04/01/24 Status: JEAN Cueva Num: [id number] Spec Type: Surgical Subm Dr: Hawk Anaya Tissues: A Uterus w/ or w/o tubes ovaries except neoplastic or prolap (UTER,CERV,TONYA Procedures: , Gross/Micro L5 -------- Age/ Patient Sex Location Account Attending Physician -------- Lele Leon 38/F [facility] [id number] Hawk Anaya -------- SPEC NUM: [id number] RECD: 04/01/24 STATUS: JEAN CUEVA NUM: [id number] TRAMAINE: 03/31/[address] [facility] [address]: Hawk Anaya ENTERED: 04/01/24 [facility] DR: Addison,Lab SPEC TYPE: Surgical DEPT: JOANIE COOPER ENTERED BY: [id number] RECV BY: [id number] ORDERED: , Gross/Micro L5 ORDERED: , Gross/Micro L5 Pathological Diagnosis Uterine with cervix, [...] chapman-pink, wrinkled and glistening endocervical -------- Specimen: [id number] Received: 04/01/24 Status: JEAN Cueva Num: [id number] Spec Type: Surgical Subm Dr: Hawk Anaya Tissues: A Uterus w/ or w/o tubes ovaries except neoplastic or prolap (UTER,CERV,TONYA Procedures: , Gross/Micro L5 -------- Patient: Lele Leon [id number] (Continued) -------- Specimen: [id number] Received: 04/01/24 (Continued) Gross Description (Continued) Signed (signature on file) Refugio Blackwood MD 04/05/24 1139 -------- Specimen: [id number] Received: 04/01/24 Status: JEAN Cueva Num: [id number] Spec Type: Surgical Subm Dr: Hawk Anaya Tissues: A Uterus w/ or w/o tubes ovaries except neoplastic or prolap (UTER,CERV,TONYA Procedures: , Gross/Micro L5 -------- Patient: Lele Leon [id number] (Continued) -------- Specimen: [id number] Received: 04/01/24 (Continued) Gross Description (Continued) canal. [...] glistening (more content not included)... Normal [facility] ALL CBC WITH AUTO DIFFon BASOPHILS ABSOLUTE AUTO 0 [facility] Basophils/100 WBC (Bld) 0.4 % 0.2 - 2.0 % [facility] Eosinophils/100 WBC (Bld) 1.6 % 0.9 - 7.0 % [facility] Erythrocyte distribution width (RBC) [Ratio] 14.2 % 11.0 - 15.0 % [facility] Hematocrit (Bld) [Volume fraction] 39.3 % 36.0 - 48.0 % [facility] Hemoglobin (Bld) [Mass/Vol] 13 g/dL 12.0 - 16.0 g/dL [facility] IMMATURE GRANULOCYTES ABS AUTO 0.02 [facility] Immature granulocytes/100 WBC (Bld) 0.3 % 0.0 - 0.5 % [facility] LYMPHOCYTES ABSOLUTE AUTO 1.9 [facility] Lymphocytes/100 WBC (Bld) 24 % 20.5 - 60.0 % [facility] MCH (RBC) [Entitic mass] 29.7 pg 26.7 - 34.0 pg [facility] MCHC (RBC) [Mass/Vol] 33.1 g/dL 29.9 - 35.2 g/dL [facility] MCV (RBC) [Entitic vol] 89.7 fL 81.0 - 99.0 fL [facility]OC[facility]TES ABSOLUTE [facility]O 0.5 [facility] Monocytes/100 WBC (Bld) 5.7 % 1.7 - 12.0 % [facility] NEUTROPHILS ABSOLUTE AUTO 5.4 [facility] Neutrophils/100 WBC (Bld) 68 % 43.0 - 75.0 % [facility] Platelet mean volume (Bld) [Entitic vol] 10.1 fL 9.5 - 13.5 fL [facility] EO # 0.1 [facility] PLT 368 [facility] RBC 4.38 [facility] WBC 7.9 [facility] ALL CBC WITH AUTO DIFFon BASOPHILS ABSOLUTE AUTO 0.1 [facility] Basophils/100 WBC (Bld) 0.6 % 0.2 - 2.0 % [facility] Eosinophils/100 WBC (Bld) 2 % 0.9 - 7.0 % [facility] Erythrocyte distribution width (RBC) [Ratio] 14.6 % 11.0 - 15.0 % [facility] Hematocrit (Bld) [Volume fraction] 39.5 % 36.0 - 48.0 % [facility] Hemoglobin (Bld) [Mass/Vol] 12.8 g/dL 12.0 - 16.0 g/dL [facility] IMMATURE GRANULOCYTES ABS AUTO 0.03 [facility] Immature granulocytes/100 WBC (Bld) 0.3 % 0.0 - 0.5 % [facility] LYMPHOCYTES ABSOLUTE AUTO 2.2 [facility] Lymphocytes/100 WBC (Bld) 24.3 % 20.5 - 60.0 % [facility] MCH (RBC) [Entitic mass] 29.3 pg 26.7 - 34.0 pg [facility] MCHC (RBC) [Mass/Vol] 32.4 g/dL 29.9 - 35.2 g/dL [facility] MCV (RBC) [Entitic vol] 90.4 fL 81.0 - 99.0 fL [facility] MONOCYTES ABSOLUTE AUTO 0.7 [facility] Monocytes/100 WBC (Bld) 7.6 % 1.7 - 12.0 % [facility] NEUTROPHILS ABSOLUTE AUTO 5.9 [facility] Neutrophils/100 WBC (Bld) 65.2 % 43.0 - 75.0 % [facility] Platelet mean volume (Bld) [Entitic vol] 10.2 fL 9.5 - 13.5 fL [facility] EO # 0.2 [facility] PLT 353 [facility] RBC 4.37 [facility] WBC 9 [facility] Pathology Request for Lab Co rpon 02-13-2024 Pathology Request for Lab Mundo Normal [facility] Comment on above: Order Comment: PATHO LOGY SEASONER HAND SPECIMEN Result Comment: See report. Scanned copy available in EMR. PERFORMED BY: [facility] [address] [place] [address] PATHOLOGIST PROCESS MANUFACTURING ENGINEER HAYDEE FRANKLIN M.D. Performed By: #### P ATH TO [facility] #### [facility] [address] IGP,APTIMA HPV,AGE GDLNon AGE GDLN ACOG TESTING Note . [facility] Comment on above: TESTS RESULT FLAG UN ITS REF RANGE LAB Clinician Provided Cytology Information Source.............Cervix;Endocervix No. of containers..01 ThinPrep Vial Age Algo ACOG Drea... FLAG LEGEND: L-Low Normal,H-High Normal,LL-Alert Low,HH-Alert High <-Panic Low,>-Panic High,A-Abnormal,AA-Critical Abnormal Performed at: 01 =[address] [place] [address] Vianney Rod MD, HPV APTIMA Negative Negative [facility] Comment on above: This nucleic acid am plification test detects fourteen high- risk HPV types (16,18,31,33,35,39,45,51,52,56,58,59,66,68) without differentiation. Performed at: = - [address] [id number] Candy Polisher: Vianney Rod MD, Phone: [phone] Performed at: [address], [place] [id number] Candy Polisher: Vianney Rod MD, Phone: [phone] IGP, APTIMA HPV, RFX 16/18,45 Note . [facility] Comment on above: TESTS RESULT FLAG UN ITS REF RANGE LAB DIAGNOSIS: 02 NEGATIVE FOR INTRAEPITHELIAL LESION OR MALIGNANCY. Specimen adequacy: 02 Satisfactory for evaluation. No endocervical component is identified. Performed by: 02 Miladis Hermosillo, Seismographer (ASC) . 02 Note: Note 02 The Pap [...] High,A-Abnormal,AA-Critical Abnormal Performed at: [address] [facility] [address] [address] Vianney Rod MD, BRUSH-SPATULA CERVIX ENDOCERVIX CLINISYNC [...] was Many WBC No Organisms Seen Normal [facility] Comment on above: Performed By: #### 4 [id number] #### [facility] [address] [place] [address] Javier Santana M.D. [id number] Plastic Surgery Visit Report on 12-31-2023 Plastic Surgery Visit Report [facility]astic Re[facility]ive Surgery [address], [address] [place] [id number] OFFICE VISIT Date of Service: 12/31/23 MR#: [id number] Acct: [id number] Name: LELE LEON Rep #: [id number] : 1985 Provider: Dr. Sasha abdi MD Age/Sex: 38/F Location: [facility] Status: Signed Intake Vital Signs 12/31/23 11:04 Height 5 ft 2 in Weight: 296 lb 4 oz BMI 54.1 BP 123/86 H Blood Pressure Location Rt brachial Position Sitting Respiration 16 Pulse 82 Temp 98.2 F Temp Source Oral Pulse Oximetry (%) 96 Intake Visit Reasons: Breast Reduction Chief Complaint: breast reduction consult Accompanied by: isra Is patient in pain?: Yes (3/10 breast) [...] her to their in-house plastic surgeon at [place]. She underwent a needle biopsy of the [...] I had (more content not included)... Normal [facility] ALL CBC WITH AUTO DIFFon BASOPHILS ABSOLUTE AUTO 0.0 [facility] Basophils/100 WBC (Bld) 0.5 % 0.2 - 2.0 % [facility] Eosinophils/100 WBC (Bld) 1.7 % 0.9 - 7.0 % [facility] Erythrocyte distribution width (RBC) [Ratio] 14.2 % 11.0 - 15.0 % [facility] Hematocrit (Bld) [Volume fraction] 38.8 % 36.0 - 48.0 % [facility] Hemoglobin (Bld) [Mass/Vol] 12.8 g/dL 12.0 - 16.0 g/dL [facility] IMMATURE GRANULOCYTES ABS AUTO 0.02 [facility] Immature granulocytes/100 WBC (Bld) 0.2 % 0.0 - 0.5 % [facility] LYMPHOCYTES ABSOLUTE AUTO 2.5 [facility] Lymphocytes/100 WBC (Bld) 29.7 % 20.5 - 60.0 % [facility] MCH (RBC) [Entitic mass] 29.4 pg 26.7 - 34.0 pg [facility] MCHC (RBC) [Mass/Vol] 33.0 g/dL 29.9 - 35.2 g/dL [facility] MCV (RBC) [Entitic vol] 89.2 fL 81.0 - 99.0 fL [facility] MONOCYTES ABSOLUTE AUTO 0.5 [facility] Monocytes/100 WBC (Bld) 6.2 % 1.7 - 12.0 % [facility] NEUTROPHILS ABSOLUTE AUTO 5.2 [facility] Neutrophils/100 WBC (Bld) 61.7 % 43.0 - 75.0 % [facility] Platelet mean volume (Bld) [Entitic vol] 10.4 fL 9.5 - 13.5 fL [facility] TB[facility] EO # 0.1 [facility] TB[facility] PLT 351 [facility] TB RBC 4.35 [facility] TB WBC 8.5 [facility] CBC WITH AUTO DIFFERENTIALon 10-17-2023 AUTO NRBC 0.0 % Normal [facility] Comment on above: Performed By: #### L [id number] #### [facility] [address] [place], [place] [address] Tenisha Vizcarra M.D. [id number] AUTO NRBC ABS COUNT 0.00 K/mcL Normal 0.00-0.00 [facility] Comment on above: Performed By: #### L [id number] #### [facility] [address] [place], [place] [address] Tenisha Vizcarra M.D. [id number] BASOPHILS ABSOLUTE COUNT 0.04 K/mcL Normal 0.00-0.30 [facility] Comment on above: Performed By: #### L [id number] #### [facility] [address] [place], [place] [address] Tenisha Vizcarra M.D. [id number] Basophils/100 WBC (Bld) 0.5 % Normal [facility] Comment on above: Performed By: #### L [id number] #### [facility] [address] [place] [address] Tenisha Vizcarra M.D. [id number] Eosinophils (Bld) [#/Vol] 0.14 10*3/uL Normal 0.00-0.50 [facility] Comment on above: Performed By: #### L [id number] #### [facility] [address] [place] [address] Tenisha Vizcarra M.D. [id number] Eosinophils/100 WBC (Bld) 1.7 % Normal [facility] Comment on above: Performed By: #### L [id number] #### [facility] [address] [place] [address] Tenisha Vizcarra M.D. [id number] Erythrocyte distribution width (RBC) [Ratio] 14.2 % Normal 11.6-14.8 [facility] Comment on above: Performed By: #### L [id number] #### [facility] [address] [place] [address] Tenisha Vizcarra M.D. [id number] Hematocrit (Bld) [Volume fraction] 40.2 % Normal 36.0-46.0 [facility] Comment on above: Performed By: #### L [id number] #### [facility] [address] [place] [address] Tenisha Vizcarra M.D. [id number] Hemoglobin (Bld) [Mass/Vol] 13.2 g/dL Normal 12.0-16.0 [facility] Comment on above: Performed By: #### L [id number] #### [facility] [address] [place] [address] Tenisha Vizcarra M.D. [id number] IG ABSOLUTE 0.03 K/mcL Normal 0.00-0.30 [facility] Comment on above: Performed By: #### L [id number] #### [facility] [address] [place] [address] Tenisha Vizcarra M.D. [id number] IG PERCENT 0.40 % Normal [facility] Comment on above: Result Comment: The IG parameter is the percentage of metamyelocytes, myelocytes and promyelocytes. An immature granulocyte count (IG) of 1% or more suggests the possibility of infection, an IG count of 3% is very likely related to an infection. Performed By: #### L [id number] #### [facility] [address] [place] [address] Tenisha Vizcarra M.D. [id number] Lymphocytes (Bld) [#/Vol] 2.38 10*3/uL Normal 0.90-4.00 [facility] Comment on above: Performed By: #### L [id number] #### [facility] [address] [place] [address] Tenisha Vizcarra M.D. [id number] Lymphocytes/100 WBC (Bld) 29.5 % Normal [facility] Comment on above: Performed By: #### L [id number] #### [facility] [address] [place] [address] Tenisha Vizcarra M.D. [id number] MCH (RBC) [Entitic mass] 29.6 pg Normal 26.0-34.0 [facility] Comment on above: Performed By: #### L [id number] #### [facility] [address] [place] [address] Teinsha Vizcarra M.D. [id number] MCV (RBC) [Entitic vol] 90.1 fL Normal 80.0-100.0 [facility] Comment on above: Performed By: #### L [id number] #### [facility] [address] [place] [address] Tenisha Vizcarra M.D. [id number] MEAN CORPUSCULAR HEMOGLOBIN CONC 32.8 g/dL Normal 31.0-37.0 [facility] Comment on above: Performed By: #### L [id number] #### [facility] [address] [place] [address] Tenisha Vizcarra M.D. [id number] Monocytes (Bld) [#/Vol] 0.57 10*3/uL Normal 0.30-0.90 [facility] Comment on above: Performed By: #### L [id number] #### [facility] [address] [place], [place] [address] Tenisha Vizcarra M.D. [id number] Monocytes/100 WBC (Bld) 7.1 % Normal [facility] Comment on above: Performed By: #### L [id number] #### [facility] [address] [place], [place] [address] Tenisha Vizcarra M.D. [id number] NEUTROPHILS ABSOLUTE COUNT 4.91 K/mcL Normal 1.70-7.00 [facility] Comment on above: Performed By: #### L [id number] #### [facility] [address] [place] [address] Tenisha Vizcarra M.D. [id number] Neutrophils/100 WBC (Bld) 60.8 % Normal [facility] Comment on above: Performed By: #### L [id number] #### [facility] [address] [place], [place] [address] Tenisha Vizcarra M.D. [id number] Platelet mean volume (Bld) [Entitic vol] 10.6 fL Normal 9.4-12.4 [facility] Comment on above: Performed By: #### L [id number] #### [facility] [address] [place], [place] [address] Tenisha Vizcarra M.D. [id number] Platelets (Bld) [#/Vol] 371 10*3/uL Normal 150-400 [facility] Comment on above: Performed By: #### L [id number] #### [facility] [address] [place], [place] [address] Tenisha Vizcarra M.D. [id number] RBC (Bld) [#/Vol] 4.46 10*6/uL Normal 4.00-5.20 [facility] Comment on above: Performed By: #### L [id number] #### [facility] [address] [place], [place] [address] Tenisha Vizcarra M.D. [id number] WBC (Bld) [#/Vol] 8.07 10*3/uL Normal 4.50-11.00 [facility] Comment on above: Performed By: #### L [id number] #### [facility] [address] [place], [place] [address] Tenisha Vizcarra M.D. [id number] COMPREHENSIVE METABOLIC PANE [place] 10-17-2023 Albumin [Mass/Vol] 3.8 g/dL Normal 3.2-5.2 [facility] Comment on above: Order Comment: [facility] has implemented the eGFR calculation approach that does not have a coefficient for race that conforms to the NKF-ASN Task Force Recommendations. Performed By: #### 4 [id number] #### [facility] [address] [place], [place] [address] Tenisha Vizcarra M.D. [id number] ALP [Catalytic activity/Vol] 81 U/L Normal 40-140 [facility] Comment on above: Order Comment: [facility] has implemented the eGFR calculation approach that does not have a coefficient for race that conforms to the NKF-ASN Task Force Recommendations. Performed By: #### 4 [id number] #### [facility] [address] [place], [place] [address] Tenisha Vizcarra M.D. [id number] ALT [Catalytic activity/Vol] 15 U/L Normal 0-35 U/L [facility] Comment on above: Order Comment: [facility] has implemented the eGFR calculation approach that does not have a coefficient for race that conforms to the NKF-ASN Task Force Recommendations. Performed By: #### 4 [id number] #### [facility] [address] [place], [place] [address] Tenisha Vizcarra M.D. [id number] Anion gap [Moles/Vol] 12 mmol/L Normal 10-20 [facility] Comment on above: Order Comment: [facility] has implemented the eGFR calculation approach that does not have a coefficient for race that conforms to the NKF-ASN Task Force Recommendations. Performed By: #### 4 [id number] #### [facility] [address] [place], [place] [address] Tenisha Vizcarra M.D. [id number] AST [Catalytic activity/Vol] 16 U/L Normal 0-35 U/L [facility] Comment on above: Order Comment: [facility] has implemented the eGFR calculation approach that does not have a coefficient for race that conforms to the NKF-ASN Task Force Recommendations. Performed By: #### 4 [id number] #### [facility] [address] [place], [place] [address] Tenisha Vizcarra M.D. [id number] Bilirubin [Mass/Vol] 0.3 mg/dL Normal 0.0-1.3 [facility] Comment on above: Order Comment: [facility] has implemented the eGFR calculation approach that does not have a coefficient for race that conforms to the NKF-ASN Task Force Recommendations. Performed By: #### 4 [id number] #### [facility] [address] [place] [address] Tenisha Vizcarra M.D. [id number] Calcium [Mass/Vol] 9.2 mg/dL Normal 8.4-10.2 [facility] Comment on above: Order Comment: [facility] has implemented the eGFR calculation approach that does not have a coefficient for race that conforms to the NKF-ASN Task Force Recommendations. Performed By: #### 4 [id number] #### [facility] [address] [place], [place] [address] Tenisha Vizcarra M.D. [id number] Chloride [Moles/Vol] 105 mmol/L Normal 98-108 [facility] Comment on above: Order Comment: [facility] has implemented the eGFR calculation approach that does not have a coefficient for race that conforms to the NKF-ASN Task Force Recommendations. Performed By: #### 4 [id number] #### [facility] [address] [place], [place] [address] Tenisha Vizcarra M.D. [id number] Creatinine [Mass/Vol] 0.66 mg/dL Normal 0.40-1.10 [facility] Comment on above: Order Comment: [facility] has implemented the eGFR calculation approach that does not have a coefficient for race that conforms to the NKF-ASN Task Force Recommendations. Performed By: #### 4 [id number] #### [facility] [address] [place], [place] [address] Tenisha Vizcarra M.D. [id number] EGFR 116 mL/min/1.73 m2 Normal >=60 [facility] Comment on above: Order Comment: [facility] has implemented the eGFR calculation approach that does not have a coefficient for race that conforms to the NKF-ASN Task Force Recommendations. Result Comment: Coco mated GFR was calculated using the 2020 CKD-EPI creatinine equation. Performed By: #### [id number] #### [facility] [address] [place], [place] [address] Tenisha Vizcarra M.D. [id number] Glucose [Mass/Vol] 115 mg/dL High 65-99 [facility] Comment on above: Order Comment: [facility] has implemented the eGFR calculation approach that does not have a coefficient for race that conforms to the NKF-ASN Task Force Recommendations. Performed By: #### [id number] #### [facility] [address] [place], [place] [address] Tenisha Vizcarra M.D. [id number] HCO3 (Bld) [Moles/Vol] 24 mmol/L Normal 21-32 [facility] Comment on above: Order Comment: [facility] has implemented the eGFR calculation approach that does not have a coefficient for race that conforms to the NKF-ASN Task Force Recommendations. Performed By: #### [id number] #### [facility] [address] [place], [place] [address] Tenisha Vizcarra M.D. [id number] Potassium [Moles/Vol] 3.7 mmol/L Normal 3.5-5.1 [facility] Comment on above: Order Comment: [facility] has implemented the eGFR calculation approach that does not have a coefficient for race that conforms to the NKF-ASN Task Force Recommendations. Performed By: #### [id number] #### [facility] [address] [place], [place] [address] Tenisha Vizcarra M.D. [id number] Protein [Mass/Vol] 7.2 g/dL Normal 6.0-8.0 [facility] Comment on above: Order Comment: [facility] has implemented the eGFR calculation approach that does not have a coefficient for race that conforms to the NKF-ASN Task Force Recommendations. Performed By: #### 4 [id number] #### [facility] [address] [place], [place] [address] Tenisha Vizcarra M.D. [id number] Sodium [Moles/Vol] 137 mmol/L Normal 135-145 [facility] Comment on above: Order Comment: [facility] has implemented the eGFR calculation approach that does not have a coefficient for race that conforms to the NKF-ASN Task Force Recommendations. Performed By: #### 4 [id number] #### [facility] [address] [place], [place] [address] Tenisha Vizcarra M.D. [id number] Urea nitrogen [Mass/Vol] 12 mg/dL Normal 8-25 [facility] Comment on above: Order Comment: [facility] has implemented the eGFR calculation approach that does not have a coefficient for race that conforms to the NKF-ASN Task Force Recommendations. Performed By: #### 4 [id number] #### [facility] [address] [place], [place] [address] Tenisha Vizcarra M.D. [id number] Urea nitrogen/Creatinine [Mass ratio] 18.2 mg/mg Normal 10.0-20.0 [facility] Comment on above: Order Comment: [facility] has implemented the eGFR calculation approach that does not have a coefficient for race that conforms to the NKF-ASN Task Force Recommendations. Performed By: #### 4 [id number] #### [facility] [address] [place], [place] [address] Tenisha Vizcarra M.D. [id number] HEMOGLOBIN A1Con 10-17-2023 Glucose [Mass/Vol] 126 mg/dL High 74-114 [facility] Comment on above: Performed By: #### 4 8202 #### [facility] [address] [place], [place] [address] Tenisha Vizcarra M.D. [id number] HbA1c (Bld) [Mass fraction] 6.0 % High 4.2-5.6 [facility] Comment on above: Performed By: #### 4 8202 #### [facility] [address] [place], [place] [address] Tenisha Vizcarra M.D. [id number] LIPID PANELon 10-17-2023 Cholesterol [Mass/Vol] 150 mg/dL Normal 100-199 [facility] Comment on above: Performed By: #### 4 [id number] #### [facility] [address] [place], [place] [address] Tenisha Vizcarra M.D. [id number] Cholesterol in HDL [Mass/Vol] 37 mg/dL Low 40-59 [facility] Comment on above: Performed By: #### 4 [id number] #### [facility] [address] [place], [place] [address] Tenisha Vizcarra M.D. [id number] Cholesterol.total/Ch olesterol in HDL [Mass ratio] 4.1 {ratio} Normal [facility] Comment on above: Result Comment: Fema le Cholesterol/HDL Ratio: Average risk: 4.4 1/2 average risk: 3.3 2 x average risk: 7.1 Performed By: #### 4 [id number] #### [facility] [address] [place], [place] [address] Tenisha Vizcarra M.D. [id number] LDL CHOLESTEROL CALCULATED 102 mg/dL Normal 10-130 [facility] Comment on above: Result Comment: [facility] onal Cholesterol Education Program Guidelines: LDL Cholesterol Optimal: <100 mg/dL Near Optimal/above Optimal: 100-129 mg/dL Borderline High: 130-159 mg/dL High: 160-189 mg/dL Very High: greater than or equal to 190 mg/dL Performed By: #### 4 [id number] #### [facility] [address] [place], [place] [address] Tenisha Vizcarra M.D. [id number] NON HDL CHOL 113 mg/dL Normal [facility] Comment on above: Result Comment: [facility]: NON HDL Cholesterol Desirable: <130 mg/dL Borderline High: 130-159 mg/dL High: 160-189 mg/dL Very High: > or = 190 mg/dL Performed By: #### 4 [id number] #### [facility] [address] [place], [place] [address] Tenisha Vizcarra M.D. [id number] Triglyceride [Mass/Vol] 57 mg/dL Normal 30-150 [facility] Comment on above: Performed By: #### 4 [id number] #### [facility] [address] [place], [place] [address] Tenisha Vizcarra M.D. [id number] US BREAST RIGHT LIMITEDon US BREAST RIGHT [...] FriOct 17, 2023 5:25:[address] [facility] Comment on above: Order Comment: Flash white alexx in [place]. Injury/Trauma or Illness?:Illness/Other How long have you had these symptoms (acute/chronic)?:Unknown Reason for exam?:mastitis Type of Exam?:Subsequent/Follow-up Additional signs and symptoms?:none [facility] MM FOLLOW UP POST CLIP [...] results are concordant with the imaging findings. [facility] Workstation ID: [id number] Dictated by: CATRACHITO CUBA Transcribed by: DANIEL CALLAWAY on FriJul 01, 2023 9:21:59 AM EST Finalized by: CATRACHITO CUBA on FriJul 01, 2023 9:57:03 AM EST Normal [facility] US BREAST BIOPSY RIGHTon US BREAST [...] mammogram. Code ZW - Awaiting further pathology. [facility]/ Workstation ID: [id number] Addended: FriJul 03, 2023 9:22 AM by Catrachito Cuba MD ADDENDUM: Pathology - Right breast, 1 o'clock zone A, ultrasound-guided core biopsy: Actively inflamed duct compatible with mastitis. Pathology results are concordant with the imaging findings. [facility] Workstation ID: [id number] Dictated by: CATRACHITO CUBA on FriJul 01, 2023 8:44:54 AM EST Transcribed by: DANIEL CALLAWAY on FriJul 01, 2023 9:21:59 AM EST Finalized by: CATRACHITO CUBA on FriJul 01, 2023 9:57:03 AM EST Normal [facility] Comment on above: Order Comment: Injur [...] results are concordant with the imaging findings. [facility] Workstation ID: [id number] Dictated by: CATRACHITO CUBA on FriJul 01, 2023 8:44:54 AM EST Transcribed by: DANIEL CALLAWAY on FriJul 01, 2023 9:21:59 AM EST Finalized by: CATRACHITO CUBA on FriJul 01, 2023 9:57:03 AM EST Normal [facility] MR BREAST BILATERAL WITH AND WITHOUT [...] FriJun 18, 2023 8:38:[address] [facility] Comment on above: Order Comment: Injur [...] sent to the patient regarding the results. [facility] Workstation ID: [id number] Dictated by: NAEL MCCRAY on FriApr 11, 2023 2:41:42 PM EST Transcribed by: LAVERNE JALLOH on FriApr 11, 2023 4:07:44 PM EST Finalized by: NAEL MCCRAY on FriApr 11, 2023 4:35:[address] [facility] US BREAST BILAT LIMITEDon US BREAST [...] sent to the patient regarding the results. [facility] Workstation ID: [id number] Dictated by: NAEL MCCRAY on FriApr 11, 2023 2:41:42 PM EST Transcribed by: LAVERNE JALLOH on FriApr 11, 2023 4:07:44 PM EST Finalized by: NAEL MCCRAY on FriApr 11, 2023 4:35:[address] [facility] Comment on above: Order Comment: Injur [...] [id number] Dictated by: LEE DEL TORO on FriDec 09, 2020 2:40:07 AM EDT Transcribed by: LEE DEL TORO on [facility] Dec 09, 2020 2:40:07 AM EDT Finalized by: LEE DEL TORO on [facility] Dec 09, 2020 2:40:07 AM EDT [facility] Comment on above: Order Comment: Injur y/Trauma [...] 2. No biliary duct dilatation or gallstones. [employer] Workstation ID: [id number] Dictated by: BEBA FRANK on [facility] Dec 09, 2020 3:02:22 AM EDT Transcribed by: KWAKU JALLOH on [facility] Dec 09, 2020 5:26:22 AM EDT Finalized by: BEBA FRANK on [facility] Dec 09, 2020 6:43:30 AM EDT [facility] Comment on above: Order Comment: US Ga [...] secondary to a diffuse disc bulge. Normal [facility] CT SPINE THORACIC WITHOUT CO [...] appear clear. IMPRESSION: No acute findings. Normal [facility] CT SPINE LUMBAR WITHOUT CONT [facility] IMPRESSION: 1. No acute fracture or dislocation of the lumbar spine is seen. 2. There is mild to moderate right and mild left neural foraminal narrowing at L4-L5 secondary to a diffuse disc bulge. [facility] EXAMINATION: CT SPIN E LUMBAR [...] to be any significant spinal canal stenosis. [employer] User, [employer] - 12/05/2019 11:48 PM EDT [...] L4-L5 secondary to a diffuse disc bulge. [employer] CT SPINE THORACIC WITHOUT CO NTRASTon 12-05-2019 IMPRESSION: No acute findings. [employer] EXAMINATION: CT SPIN E THORACIC WITHOUT CONTRAST [...] Imaged portions of the lungs appear clear. [employer] User, [employer] - 12/05/2019 11:39 PM EDT EXAMINATION: CT [...] appear clear. IMPRESSION IMPRESSION: No acute findings. [facility] CBCon 06-25-2019 ABSOLUTE BAS 0.1 10*3/uL Normal 0.0-0.2 [facility] Comment on above: Performed By: #### A CBC #### Testing performed at [address] [address] ABSOLUTE EOS 0.10 10*3/uL Normal 0.0-0.7 [facility] Comment on above: Performed By: #### A CBC #### Testing performed at [address] [address] ABSOLUTE NEUTROPHIL COUNT 6.1 10*3/uL Normal 1.4-6.5 [facility] Comment on above: Performed By: #### A CBC #### Testing performed at [address] [address] Basophils/100 WBC (Bld) 0.7 % Normal 0.0-2.0 [facility] Comment on above: Performed By: #### A CBC #### Testing performed at [address] [address] DTYPE AUTO DIFF Normal [facility] Comment on above: Performed By: #### A CBC #### Testing performed at [address] [address] Eosinophils/100 WBC (Bld) 1.4 % Normal 0.0-11.0 [facility] Comment on above: Performed By: #### A CBC #### Testing performed at [address] [address] Lymphocytes (Bld) [#/Vol] 2.40 10*3/uL Normal 1.2-3.4 [facility] Comment on above: Performed By: #### A CBC #### Testing performed at [address] [address] Lymphocytes/100 WBC (Bld) 26.2 % Normal 20.0-55.0 [facility] Comment on above: Performed By: #### A CBC #### Testing performed at [address] [address] Monocytes (Bld) [#/Vol] 0.6 10*3/uL Normal 0.0-0.7 [facility] Comment on above: Performed By: #### A CBC #### Testing performed at [address] [address] Monocytes/100 WBC (Bld) 6.1 % Normal 0.0-10.0 [facility] Comment on above: Performed By: #### A CBC #### Testing performed at [address] [address] Neutrophils/100 WBC (Bld) 65.6 % Normal 37.0-75.0 [facility] Comment on above: Performed By: #### A CBC #### Testing performed at [address] [address] Erythrocyte distribution width (RBC) [Ratio] 15.5 % High 11.5-14.5 [facility] Comment on above: Performed By: #### A CBC #### Testing performed at [address] [address] Hematocrit (Bld) [Volume fraction] 41.4 % Normal 36.0-48.0 [facility] Comment on above: Performed By: #### A CBC #### Testing performed at [address] [address] Hemoglobin (Bld) [Mass/Vol] 14.1 g/dL Normal 12.0-16.0 [facility] Comment on above: Performed By: #### A CBC #### Testing performed at [address] [address] MCH (RBC) [Entitic mass] 30.9 pg Normal 26.0-35.0 [facility] Comment on above: Performed By: #### A CBC #### Testing performed at [address] [address] MCHC (RBC) [Mass/Vol] 34.1 g/dL Normal 27.0-37.0 [facility] Comment on above: Performed By: #### A CBC #### Testing performed at [address] [address] MCV (RBC) [Entitic vol] 90.4 fL Normal 80.0-100.0 [facility] Comment on above: Performed By: #### A CBC #### Testing performed at [address] [address] Platelet mean volume (Bld) [Entitic vol] 8.2 fL Normal 7.4-11.0 [facility] Comment on above: Performed By: #### A CBC #### Testing performed at [address] [address] Platelets (Bld) [#/Vol] 350 10*3/uL Normal 130.0-400.0 [facility] Comment on above: Performed By: #### A CBC #### Testing performed at [address] [address] RBC (Bld) [#/Vol] 4.58 10*6/uL Normal 4.0-5.4 [facility] Comment on above: Performed By: #### A CBC #### Testing performed at [address] [address] WBC (Bld) [#/Vol] 9.3 10*3/uL Normal 3.6-11.0 [facility] Comment on above: Performed By: #### A CBC #### Testing performed at [facility] [address] [place] [address] CBC, EDIF, [employer] 2019 ABSOLUTE BASOPHIL COUNT [...] [#/Vol] 2.40 10*3/uL 1.2 - 3.4 10*3/uL [facility] Lymphocytes/100 WBC (Bld) 26.2 % 20 - 55 % [facility] MCH (RBC) [Entitic mass] 30.9 pg 26 - 35 PG [facility] MCHC (RBC) [Mass/Vol] 34.1 g/dL [facility] MCV (RBC) [Entitic vol] 90.4 fL [facility] Monocytes (Bld) [#/Vol] 0.6 10*3/uL 0 - 0.7 10*3/uL [facility] Monocytes/100 WBC (Bld) 6.1 % 0 - 10 % [facility] Neutrophils (Bld) [#/Vol] 6.1 10*3/uL 1.4 - 6.5 10*3/uL [facility] Neutrophils/100 WBC (Bld) 65.6 % 37 - 75 % [facility] Platelet mean volume (Bld) [Entitic vol] 8.2 fL [facility] Platelets (Bld) [#/Vol] 350 10*3/uL 130 - 400 10*3/uL [facility] RBC (Bld) [#/Vol] 4.58 10*6/uL 4 - 5.4 10*6/uL [facility] WBC (Bld) [#/Vol] 9.3 10*3/uL 3.6 - 11 10*3/uL [facility] CMP FASTINGon 06-25-2019 A:G RATIO 1.3 RATIO Normal 1.3-2.2 [facility] Comment on above: Performed By: #### A CBC #### Testing performed at [address] [address] Albumin [Mass/Vol] 4.5 G/dl Normal 3.5-5.0 [facility] Comment on above: Performed By: #### A CBC #### Testing performed at [address] [address] ALP [Catalytic activity/Vol] 76 U/L Normal 38-126 [facility] Comment on above: Performed By: #### A CBC #### Testing performed at [address] [address] ALT [Catalytic activity/Vol] 32 U/L Normal 9-52 [facility] Comment on above: Performed By: #### A CBC #### Testing performed at [address] [address] AST [Catalytic activity/Vol] 23 U/L Normal 14-36 [facility] Comment on above: Performed By: #### A CBC #### Testing performed at [address] [address] Bilirubin [Mass/Vol] 0.3 mg/dL Normal 0.2-1.3 [facility] Comment on above: Performed By: #### A CBC #### Testing performed at [address] [address] Calcium [Mass/Vol] 9.2 mg/dL Normal 8.4-10.2 [facility] Comment on above: Performed By: #### A CBC #### Testing performed at [address] [address] Chloride [Moles/Vol] 101 mmol/L Normal 98-107 [facility] Comment on above: Result Comment: Ryan berg note: Triglyceride levels of 600mg/dL or higher may positively bias chloride results by approximately 2.1 mmol Performed By: #### A CBC #### Testing performed at [address] [address] CO2 [Moles/Vol] 26 mmol/L Normal 22-30 [facility] Comment on above: Performed By: #### A CBC #### Testing performed at [place] [id number] Creatinine [Mass/Vol] 0.71 mg/dL Normal 0.7-1.2 [facility] Comment on above: Performed By: #### A CBC #### Testing performed at [address] [address] EST. GFR, >60 Normal [facility] Comment on above: Performed By: #### A CBC #### Testing performed at [address] [address] EST. GFR,Non >60 Normal [facility] Comment on above: Performed By: #### A CBC #### Testing performed at [address] [address] GFR/1.73 sq M predicted among non-blacks MDRD (S/P/Bld) [Vol rate/Area] Average GFR for 30-39 years old = 109. Normal [facility] Comment on above: Result Comment: Cleaning Staff Supervisor rian Kidney disease, GFR = <60. Kidney failure, GFR = <15. The GFR estimate is not adjusted for extreme body surface area or acute process, nor has it been validated for women or ethnic groups other than and . Performed By: #### A CBC #### Testing performed at [address] [address] Glucose [Mass/Vol] 74 mg/dL Normal 70-100 [facility] Comment on above: Result Comment: NORMAL <100 mg/dL PREDIABETES 101-126 mg/dL DIABETES 126 mg/dL or higher Performed By: #### A CBC #### Testing performed at [address] [address] Potassium [Moles/Vol] 4.0 mmol/L Normal 3.5-5.1 [facility] Comment on above: Performed By: #### A CBC #### Testing performed at [address] [address] Protein [Mass/Vol] 8.1 g/dL Normal 6.3-8.2 [facility] Comment on above: Performed By: #### A CBC #### Testing performed at [address] [address] Sodium [Moles/Vol] 138 mmol/L Normal 137-145 [facility] Comment on above: Performed By: #### A CBC #### Testing performed at [address] [address] Urea nitrogen [Mass/Vol] 17 mg/dL Normal 7-20 [facility] Comment on above: Performed By: #### A CBC #### Testing performed at [address] [address] COMPREHENSIVE METABOLIC PANE [place] 06-25-2019 Albumin [Mass/Vol] 4.5 G/dl 3.5 - 5 G/dl [facility] Albumin/Globulin [Mass ratio] 1.3 {ratio} [facility] ALP [Catalytic activity/Vol] 76 U/L [facility] [employer] ALT [Catalytic activity/Vol] 32 U/L [facility] [employer] AST [Catalytic activity/Vol] 23 U/L [facility] [employer] Bilirubin [Mass/Vol] 0.3 mg/dL [facility] [employer] Calcium [Mass/Vol] 9.2 mg/dL [facility] Chloride [Moles/Vol] 101 mmol/L [facility] [employer] Comment on above: Please note: Triglyc eride levels of 600mg/dL or higher may positively bias chloride results by approximately 2.1 mmol CO2 [Moles/Vol] 26 mmol/L [facility] Creatinine [Mass/Vol] 0.71 mg/dL [facility] GFR/1.73 [...] 01-19-2019 ABSOLUTE BAS 0.1 10*3/uL Normal 0.0-0.2 [facility] ABSOLUTE EOS 0.20 10*3/uL Normal 0.0-0.7 [facility] ABSOLUTE NEUTROPHIL COUNT 6.6 10*3/uL High 1.4-6.5 [facility] Basophils/100 WBC (Bld) 0.6 % Normal 0.0-2.0 [facility] DTYPE AUTO DIFF Normal [facility] Eosinophils/100 WBC (Bld) 1.6 % Normal 0.0-11.0 [facility] Lymphocytes (Bld) [#/Vol] 2.80 10*3/uL Normal 1.2-3.4 [facility] Lymphocytes/100 WBC (Bld) 27.1 % Normal 20.0-55.0 [facility] Monocytes (Bld) [#/Vol] 0.6 10*3/uL Normal 0.0-0.7 [facility] Monocytes/100 WBC (Bld) 5.9 % Normal 0.0-10.0 [facility] Neutrophils/100 WBC (Bld) 64.8 % Normal 37.0-75.0 [facility] Erythrocyte distribution width (RBC) [Ratio] 14.5 % Normal 11.5-14.5 [facility] Hematocrit (Bld) [Volume fraction] 41.6 % Normal 36.0-48.0 [facility] Hemoglobin (Bld) [Mass/Vol] 14.4 g/dL Normal 12.0-16.0 [facility] MCH (RBC) [Entitic mass] 31.2 pg Normal 26.0-35.0 [facility] MCHC (RBC) [Mass/Vol] 34.6 g/dL Normal 27.0-37.0 [facility] MCV (RBC) [Entitic vol] 90.1 fL Normal 80.0-100.0 [facility] Platelet mean volume (Bld) [Entitic vol] 8.3 fL Normal 7.4-11.0 [facility] Platelets (Bld) [#/Vol] 305 10*3/uL Normal 130.0-400.0 [facility] RBC (Bld) [#/Vol] 4.62 10*6/uL Normal 4.0-5.4 [facility] WBC (Bld) [#/Vol] 10.2 10*3/uL Normal 3.6-11.0 [facility] CMP FASTINGon 01-19-2019 A:G RATIO 1.1 RATIO Low 1.3-2.2 [facility] Albumin [Mass/Vol] 4.0 G/dl Normal 3.5-5.0 [facility] ALP [Catalytic activity/Vol] 83 U/L Normal 38-126 [facility] ALT [Catalytic activity/Vol] 30 U/L Normal 9-52 [facility] AST [Catalytic activity/Vol] 28 U/L Normal 14-36 [facility] Bilirubin [Mass/Vol] 0.4 mg/dL Normal 0.2-1.3 [facility] Calcium [Mass/Vol] 9.4 mg/dL Normal 8.4-10.2 [facility] Chloride [Moles/Vol] 103 mmol/L Normal 98-107 [facility] Comment on above: Result Comment: Ryan berg note: Triglyceride levels of 600mg/dL or higher may positively bias chloride results by approximately 2.1 mmol CO2 [Moles/Vol] 27 mmol/L Normal 22-30 [facility] Creatinine [Mass/Vol] 0.71 mg/dL Normal 0.7-1.2 [facility] EST. GFR, >60 Normal [facility] EST. GFR,Non >60 Normal [facility] GFR/1.73 sq M predicted among non-blacks MDRD (S/P/Bld) [Vol rate/Area] Average GFR for 30-39 years old = 109. Normal [facility] Comment on above: Result Comment: Cleaning Staff Supervisor rian Kidney disease, GFR = <60. Kidney failure, GFR = <15. The GFR estimate is not adjusted for extreme body surface area or acute process, nor has it been validated for women or ethnic groups other than and . Glucose [Mass/Vol] 106 mg/dL High 70-100 [facility] Comment on above: Result Comment: NORMAL <100 mg/dL PREDIABETES 101-126 mg/dL DIABETES 126 mg/dL or higher Potassium [Moles/Vol] 3.7 mmol/L Normal 3.5-5.1 [facility] Protein [Mass/Vol] 7.6 g/dL Normal 6.3-8.2 [facility] Sodium [Moles/Vol] 139 mmol/L Normal 137-145 [facility] Urea nitrogen [Mass/Vol] 12 mg/dL Normal 7-20 [facility] LIPID PROFILEon 01-19-2019 Cholesterol [Mass/Vol] 149 mg/dL Normal 107-217 [facility] Cholesterol in HDL [Mass/Vol] 33 mg/dL Normal 33-75 [facility] Cholesterol in LDL [Mass/Vol] 106 mg/dL Normal [facility] Cholesterol in VLDL [Mass/Vol] 10 mg/dL Normal 5.0-25 [facility] Cholesterol.total/Ch olesterol in HDL [Mass ratio] 4.52 {ratio} Normal [facility] Comment on above: Result Comment: RISK TOTAL/HDL RATIO MEN WOMEN 1/2 AVERAGE 3.43 3.27 AVERAGE 4.97 4.44 2X AVERAGE 9.55 7.05 3X AVERAGE 23.99 11.04 Triglyceride [Mass/Vol] 50 mg/dL Normal 0-150 [facility] TSH,REFLEX FREE T4on 019 TSH,REFLEX FREE T4 2.420 uIU/ML Normal 0.46-4.68 [facility] XR FOOT RIGHT 3+ VIEWS (ANA MATHEWS)on [...] consideration. 3. No acute fracture or dislocation. [employer] Workstation ID: [id number] Dictated by: BRIT RIVERA on FriOct 13, 2018 11:33:21 AM EDT Transcribed by: ABDIRIZAK FERNANDEZ on FriOct 13, 2018 11:39:27 AM EDT Finalized by: BRIT RIVERA on FriOct 13, 2018 3:49:26 PM EDT [facility] Comment on above: Order Comment: Injur y/Trauma or Illness?:Injury/Trauma How long have you had these symptoms (acute/chronic)?:Acute Reason for exam?:pain History of cancer?:na Surgeries, chemotherapy, or radiation?:na Type of Exam?:Initial Mechanism of injury?:running on treadmill Vital Signs Date Time Vital Sign Value Performing Clinician Facility 01-19-2025 10:51-0400 Body height 160 cm [facility] Henderson MD Work Phone: [facility] 01-19-2025 10:51-0400 Body mass index (BMI) [Ratio] 52.97 kg/m2 Sorin Henderson MD Work Phone: [facility] 01-19-2025 10:51-0400 Body weight 135.63 kg Sorin Henderson MD Work Phone: [facility] 01-19-2025 10:51-0400 Diastolic blood pressure 78 mm[Hg] Sorin Henderson MD Work Phone: [facility] 01-19-2025 10:51-0400 Systolic blood pressure 120 mm[Hg] Sorin Henderson MD Work Phone: [facility] 05-13-2024 14:47-0500 Body mass index (BMI) [Ratio] 55.24 kg/m2 Harper CONLEY Work Phone: [facility] 05-13-2024 14:47-0500 Body weight 136.99 kg Harper CONLEY Work Phone: [facility] 05-13-2024 14:47-0500 Diastolic blood pressure 82 mm[Hg] Harper CONLEY Work Phone: [facility] 05-13-2024 14:47-0500 Systolic blood pressure 130 mm[Hg] Harper CONLEY Work Phone: [facility] 04-07-2024 11:55-0500 Body mass index (BMI) [Ratio] 39.69 kg/m2 Harper CONLEY Work Phone: [facility] 04-07-2024 11:55-0500 Body weight 98.43 kg Harper Connie CONLEY Work Phone: [facility] 04-07-2024 11:55-0500 Diastolic blood pressure 72 mm[Hg] Harper Rosales PA Work Phone: [facility] 04-07-2024 11:55-0500 Systolic blood pressure 122 mm[Hg] Harper Connie PA Work Phone: [facility] 03-02-2024 10:41-0500 Body mass index (BMI) [Ratio] 55.02 kg/m2 Hawk Héctor DO Work Phone: [facility] 03-02-2024 10:41-0500 Body weight 136.44 kg Hawk Héctor DO Work Phone: [facility] 03-02-2024 10:41-0500 Diastolic blood pressure 76 mm[Hg] Hawk Héctor DO Work Phone: [facility] 03-02-2024 10:41-0500 Systolic blood pressure 118 mm[Hg] Hawk Héctor DO Work Phone: [facility] 01-20-2024 10:19-0400 Body mass index (BMI) [Ratio] 53.92 kg/m2 Hawk Héctor DO Work Phone: [facility] 01-20-2024 10:19-0400 Body weight 133.72 kg Hawk Héctor DO Work Phone: [facility] 01-20-2024 10:19-0400 Diastolic blood pressure 58 mm[Hg] Hawk Héctor DO Work Phone: [facility] 01-20-2024 10:19-0400 Systolic blood pressure 110 mm[Hg] Hawk Héctor DO Work Phone: [facility] 01-12-2024 10:02-0400 Body height 157.5 cm Alyssa Prakash CNP Work Phone: [facility] 01-12-2024 10:02-0400 Body mass index (BMI) [Ratio] 53.48 kg/m2 Alyssa Prakash CNP Work Phone: [facility] 01-12-2024 10:02-0400 Body weight 132.63 kg Alyssa Prakash CNP Work Phone: [facility] Comment on above: ACTUAL WEIGHT 12-30-2023 14:04-0400 Body height 157.5 cm Hawk Héctor DO Work Phone: [facility] 12-30-2023 14:04-0400 Body mass index (BMI) [Ratio] 53.59 kg/m2 Hawk Héctor DO Work Phone: [facility] 12-30-2023 14:04-0400 Body weight 132.9 kg Hawk Héctor DO Work Phone: [facility] 12-30-2023 14:04-0400 Diastolic blood pressure 82 mm[Hg] Hawk Héctor DO Work Phone: [facility] 12-30-2023 14:04-0400 Systolic blood pressure 120 mm[Hg] Hawk Héctor DO Work Phone: [facility] 12-15-2023 13:23-0400 Body weight 135.35 kg Hawk Héctor DO Work Phone: [facility] 12-15-2023 13:23-0400 Diastolic blood pressure 78 mm[Hg] Hawk Héctor DO Work Phone: [facility] 12-15-2023 13:23-0400 Systolic blood pressure 118 mm[Hg] Hawk Héctor DO Work Phone: [facility] 08-19-2023 09:00-0400 Diastolic blood pressure 91 mm[Hg] Ariana Browniff PA-C Work Phone: [facility] 08-19-2023 09:00-0400 Systolic blood pressure 129 mm[Hg] Ariana Browniff PA-C Work Phone: [facility] 08-19-2023 08:38-0400 Body height 157.5 cm Ariana Conniff PA-C Work Phone: [facility] 08-19-2023 08:38-0400 Body mass index (BMI) [Ratio] 54.43 kg/m2 Ariana Conniff PA-C Work Phone: [facility] 08-19-2023 08:38-0400 Body weight 134.99 kg Ariana Conniff PA-C Work Phone: [facility] 08-19-2023 08:38-0400 Heart rate 86 /min Ariana Conniff PA-C Work Phone: [facility] 08-19-2023 08:38-0400 SaO2% (BldA) [Mass fraction] 97 % Ariana Conniff PA-C Work Phone: [facility] 05-14-2023 10:15-0500 Body height 157.5 cm Ashley Mcdaniel III, MD Work Phone: [facility] 05-14-2023 10:15-0500 Body mass index (BMI) [Ratio] 54.29 kg/m2 Ashley Mcdaniel III, MD Work Phone: [facility] 05-14-2023 10:15-0500 Body weight 134.63 kg Ashley Mcdaniel III, MD Work Phone: [facility] 05-14-2023 10:15-0500 Diastolic blood pressure 83 mm[Hg] Ashley Mcdaniel III, MD Work Phone: [facility] 05-14-2023 10:15-0500 Heart rate 95 /min Ashley Mcdaniel III, MD Work Phone: [facility] 05-14-2023 10:15-0500 SaO2% (BldA) [Mass fraction] 95 % Ashley Mcdaniel III, MD Work Phone: [facility] 05-14-2023 10:15-0500 Systolic blood pressure 139 mm[Hg] Ashley Mcdaniel III, MD Work Phone: [facility] 04-01-2023 10:01-0500 Diastolic blood pressure 90 mm[Hg] Ariana Conniff PA-C Work Phone: [facility] 04-01-2023 10:01-0500 Systolic blood pressure 128 mm[Hg] Ariana Conniff PA-C Work Phone: [facility] 04-01-2023 09:40-0500 Body height 157.5 cm Ariana Conniff PA-C Work Phone: [facility] 04-01-2023 09:40-0500 Body mass index (BMI) [Ratio] 53.96 kg/m2 Ariana Conniff PA-C Work Phone: [facility] 04-01-2023 09:40-0500 Body weight 133.81 kg Ariana Conniff PA-C Work Phone: [facility] 04-01-2023 09:40-0500 Heart rate 96 /min Ariana Conniff PA-C Work Phone: [facility] 04-01-2023 09:40-0500 SaO2% (BldA) [Mass fraction] 94 % Ariana Conniff PA-C Work Phone: [facility] 01-23-2023 09:44-0400 Body height 157.5 cm Ariana Conniff PA-C Work Phone: [facility] 01-23-2023 09:44-0400 Body mass index (BMI) [Ratio] 53.41 kg/m2 Ariana Conniff PA-C Work Phone: [facility] 01-23-2023 09:44-0400 Body weight 132.45 kg Ariana Conniff PA-C Work Phone: [facility] 01-23-2023 09:44-0400 Diastolic blood pressure 88 mm[Hg] Ariana Conniff PA-C Work Phone: [facility] 01-23-2023 09:44-0400 Heart rate 91 /min Ariana Conniff PA-C Work Phone: [facility] 01-23-2023 09:44-0400 SaO2% (BldA) [Mass fraction] 98 % Ariana Conniff PA-C Work Phone: [facility] 01-23-2023 09:44-0400 Systolic blood pressure 120 mm[Hg] Ariana Conniff PA-C Work Phone: [facility] 09-04-2022 09:14-0400 Diastolic blood pressure 80 mm[Hg] Ariana Conniff PA-C Work Phone: [facility] 09-04-2022 09:14-0400 Systolic blood pressure 121 mm[Hg] Ariana Conniff PA-C Work Phone: [facility] 09-04-2022 08:56-0400 Body height 157.5 cm Ariana Conniff PA-C Work Phone: [facility] 09-04-2022 08:56-0400 Body mass index (BMI) [Ratio] 53.22 kg/m2 Ariana Conniff PA-C Work Phone: [facility] 09-04-2022 08:56-0400 Body weight 132 kg Ariana Conniff PA-C Work Phone: [facility] 09-04-2022 08:56-0400 Heart rate 88 /min Ariana Conniff PA-C Work Phone: [facility] 09-04-2022 08:56-0400 SaO2% (BldA) [Mass fraction] 96 % Ariana Conniff PA-C Work Phone: [facility] 05-28-2022 10:51-0500 Body height 157.5 cm Ariana Conniff PA-C Work Phone: [facility] 05-28-2022 10:51-0500 Body mass index (BMI) [Ratio] 52.86 kg/m2 Ariana Conniff PA-C Work Phone: [facility] 05-28-2022 10:51-0500 Body weight 131.09 kg Ariana Conniff PA-C Work Phone: [facility] 05-28-2022 10:51-0500 Diastolic blood pressure 69 mm[Hg] Ariana Conniff PA-C Work Phone: [facility] 05-28-2022 10:51-0500 Heart rate 92 /min Ariana Conniff PA-C Work Phone: [facility] 05-28-2022 10:51-0500 SaO2% (BldA) [Mass fraction] 95 % Ariana Conniff PA-C Work Phone: [facility] 05-28-2022 10:51-0500 Systolic blood pressure 139 mm[Hg] Ariana Conniff PA-C Work Phone: [facility] 03-05-2022 15:41-0500 Body height 157.5 cm Ariana Conniff PA-C Work Phone: [facility] 03-05-2022 15:41-0500 Body mass index (BMI) [Ratio] 54.69 kg/m2 Ariana Conniff PA-C Work Phone: [facility] 03-05-2022 15:41-0500 Body weight 135.63 kg Ariana Conniff PA-C Work Phone: [facility] 03-05-2022 15:41-0500 Diastolic blood pressure 89 mm[Hg] Ariana Conniff PA-C Work Phone: [facility] 03-05-2022 15:41-0500 Heart rate 83 /min Ariana Conniff PA-C Work Phone: [facility] 03-05-2022 15:41-0500 SaO2% (BldA) [Mass fraction] 96 % Ariana Conniff PA-C Work Phone: [facility] 03-05-2022 15:41-0500 Systolic blood pressure 132 mm[Hg] Ariana Conniff PA-C Work Phone: [facility] 02-05-2022 09:38-0400 Diastolic blood pressure 89 mm[Hg] Ariana Conniff PA-C Work Phone: [facility] 02-05-2022 09:38-0400 Systolic blood pressure 140 mm[Hg] Ariana Conniff PA-C Work Phone: [facility] 02-05-2022 08:42-0400 Body height 157.5 cm Ariana Conniff PA-C Work Phone: [facility] 02-05-2022 08:42-0400 Body mass index (BMI) [Ratio] 54.69 kg/m2 Ariana Conniff PA-C Work Phone: [facility] 02-05-2022 08:42-0400 Body weight 135.63 kg Ariana Conniff PA-C Work Phone: [facility] 02-05-2022 08:42-0400 Heart rate 100 /min Ariana Conniff PA-C Work Phone: [facility] 02-05-2022 08:42-0400 SaO2% (BldA) [Mass fraction] 96 % Ariana Conniff PA-C Work Phone: [facility] 10-01-2021 09:28-0400 Body height 157.5 cm Ashley Mcdaniel III, MD Work Phone: [facility] 10-01-2021 09:28-0400 Body mass index (BMI) [Ratio] 53.55 kg/m2 Ashley Mcdaniel III, MD Work Phone: [facility] 10-01-2021 09:28-0400 Body weight 132.81 kg Ashley Mcdaniel III, MD Work Phone: [facility] 10-01-2021 09:28-0400 Diastolic blood pressure 88 mm[Hg] Ashley Mcdaniel III, MD Work Phone: [facility] 10-01-2021 09:28-0400 Heart rate 87 /min Ashley Mcdaniel III, MD Work Phone: [facility] 10-01-2021 09:28-0400 SaO2% (BldA) [Mass fraction] 96 % Ashley Mcdaniel III, MD Work Phone: [facility] 10-01-2021 09:28-0400 Systolic blood pressure 128 mm[Hg] Ashley Mcdaniel III, MD Work Phone: [facility] 09-10-2021 11:02-0400 Body height 157.5 cm Priya Jorge [employer] Work Phone: [facility] 09-10-2021 11:02-0400 Body mass index (BMI) [Ratio] 52.57 kg/m2 Priya Zamorayon [employer] Work Phone: [facility] 09-10-2021 11:02-0400 Body weight 130.36 kg Priya Jorge [employer] Work Phone: [facility] 09-10-2021 11:02-0400 Diastolic blood pressure 94 mm[Hg] Priya Jorge [employer] Work Phone: [facility] 09-10-2021 11:02-0400 Heart rate 89 /min Priya Jorge [employer] Work Phone: [facility] 09-10-2021 11:02-0400 Systolic blood pressure 139 mm[Hg] Priya Jorge [employer] Work Phone: [facility] 08-04-2020 10:26-0400 BMI (Body Mass Index) 47.47 kg/m2 sandee [facility] 08-04-2020 [id number] Body Temperature 98.2 [degF] [facility] 08-04-2020 10:26-0400 Body weight 121.56 kg [facility] 08-04-2020 10:26-0400 BP Diastolic 87 mm[Hg] sandee [facility] 08-04-2020 10:26-0400 BP Systolic 133 mm[Hg] [facility] 08-04-2020 10:26-0400 Height 160 cm [facility] 08-04-2020 10:26-0400 Pulse (Heart Rate) 79 /min [facility] 08-04-2020 10:26-0400 Pulse Oximetry 96 % Maikel Leal [facility] 12-14-2019 09:32-0400 BMI (Body Mass Index) 49.19 kg/m2 [facility] 12-14-2019 09:32-0400 Body Temperature 98.1 [degF] [facility] 12-14-2019 09:32-0400 Body weight 134.08 kg [facility] 12-14-2019 09:32-0400 BP Diastolic 88 mm[Hg] [facility] 12-14-2019 09:32-0400 BP Systolic 130 mm[Hg] [facility] 12-14-2019 09:32-0400 Height 165.1 cm [facility] 12-14-2019 09:32-0400 Pulse (Heart Rate) 95 /min [facility] 12-14-2019 09:32-0400 Pulse Oximetry 96 % [facility] 12-07-2019 10:33-0400 BMI (Body Mass Index) 49.34 kg/m2 [facility] 12-07-2019 10:33-0400 Body Temperature 98.8 [degF] [facility] 12-07-2019 10:33-0400 Body weight 133.36 kg [facility] 12-07-2019 10:33-0400 BP Diastolic 74 mm[Hg] [facility] 12-07-2019 10:33-0400 BP Systolic 126 mm[Hg] [facility] 12-07-2019 10:33-0400 Height 164.4 cm [facility] 12-07-2019 10:33-0400 Pulse (Heart Rate) 84 /min [facility] 12-07-2019 10:33-0400 Pulse Oximetry 97 % [facility] 12-07-2019 10:33-0400 Respiratory Rate 14 /min [facility] 12-06-2019 00:21-0400 BP Diastolic 92 mm[Hg] [facility] 12-06-2019 00:21-0400 BP Systolic 138 mm[Hg] [facility] 12-06-2019 00:21-0400 Pulse (Heart Rate) 88 /min [facility] 12-06-2019 00:21-0400 Respiratory Rate 18 /min [facility] 12-05-2019 21:32-0400 Body Temperature 99.1 [degF] [facility] 12-05-2019 21:32-0400 Pulse Oximetry 97 % [facility] 06-25-2019 13:18-0500 BMI (Body Mass Index) 49.86 kg/m2 [facility] 06-25-2019 13:18-0500 Body Temperature 98.1 [degF] [facility] 06-25-2019 13:18-0500 Body weight 123.65 kg [facility] 06-25-2019 13:18-0500 BP Diastolic 82 mm[Hg] [facility] 06-25-2019 13:18-0500 BP Systolic 160 mm[Hg] [facility] 06-25-2019 13:18-0500 Height 157.5 cm [facility] 06-25-2019 13:18-0500 Pulse (Heart Rate) 85 /min [facility] 06-25-2019 13:18-0500 Pulse Oximetry 98 % [facility] 06-25-2019 13:18-0500 Respiratory Rate 14 /min [facility] 06-10-2019 08:16-0500 BMI (Body Mass Index) 49.35 kg/m2 [facility] 06-10-2019 08:16-0500 Body Temperature 97.39 [degF] [facility] 06-10-2019 08:16-0500 Body weight 122.38 kg [facility] 06-10-2019 08:16-0500 BP Diastolic 80 mm[Hg] [facility] 06-10-2019 08:16-0500 BP Systolic 110 mm[Hg] [facility] 06-10-2019 08:16-0500 Height 157.5 cm [facility] 06-10-2019 08:16-0500 Pulse (Heart Rate) 94 /min [facility] 06-10-2019 08:16-0500 Pulse Oximetry 97 % [facility] 06-10-2019 08:16-0500 Respiratory Rate 14 /min [facility] 03-17-2019 09:02-0500 BMI (Body Mass Index) 49.49 kg/m2 [facility] 03-17-2019 09:02-0500 Body Temperature 98.1 [degF] [facility] 03-17-2019 09:02-0500 Body weight 122.74 kg [facility] 03-17-2019 09:02-0500 BP Diastolic 74 mm[Hg] [facility] 03-17-2019 09:02-0500 BP Systolic 110 mm[Hg] [facility] 03-17-2019 09:02-0500 Height 157.5 cm [facility] 03-17-2019 09:02-0500 Pulse (Heart Rate) 100 /min [facility] 03-17-2019 09:02-0500 Pulse Oximetry 97 % [facility] 03-17-2019 09:02-0500 Respiratory Rate 16 /min [facility] 01-25-2019 13:10-0400 BMI (Body Mass Index) 51.4 kg/m2 [facility] 01-25-2019 13:10-0400 Body Temperature 98.4 [degF] [facility] 01-25-2019 13:10-0400 Body weight 127.46 kg [facility] 01-25-2019 13:10-0400 BP Diastolic 80 mm[Hg] [facility] 01-25-2019 13:10-0400 BP Systolic 117 mm[Hg] [facility] 01-25-2019 13:10-0400 Height 157.5 cm [facility] 01-25-2019 13:10-0400 Pulse (Heart Rate) 84 /min [facility] 01-25-2019 13:10-0400 Pulse Oximetry 97 % [facility] 01-25-2019 13:10-0400 Respiratory Rate 16 /min [facility] 11-24-2018 13:35-0400 BMI (Body Mass Index) 48.08 kg/m2 [facility] 11-24-2018 13:35-0400 Body Temperature 98.29 [degF] [facility] 11-24-2018 13:35-0400 Body weight 130.91 kg [facility] 11-24-2018 13:35-0400 BP Diastolic 84 mm[Hg] [facility] 11-24-2018 13:35-0400 BP Systolic 108 mm[Hg] [facility] 11-24-2018 13:35-0400 Height 165 cm [facility] 11-24-2018 13:35-0400 Pulse (Heart Rate) 85 /min [facility] 11-24-2018 13:35-0400 Pulse Oximetry 97 % [facility] 11-24-2018 13:35-0400 Respiratory Rate 14 /min [facility] 10-13-2018 11:26-0400 BP Diastolic 89 mm[Hg] [facility] Comment on above: Rechecked [facility] 10-13-2018 11:26-0400 BP Systolic 142 mm[Hg] [facility] Comment on above: Rechecked [facility] 10-13-2018 11:02-0400 BMI (Body Mass Index) 44.99 kg/m2 Yas[facility] 10-13-2018 11:02-0400 Body Temperature 98.29 [degF] [facility] 10-13-2018 11:02-0400 Height 160 cm Yasmin [facility] 10-13-2018 11:02-0400 Pulse (Heart Rate) 84 /min [facility] 10-13-2018 11:02-0400 Pulse Oximetry 98 % [facility] 10-13-2018 11:02-0400 Respiratory Rate 18 /min Yasmin Brown [facility] 10-13-2018 11:02-0400 Weight 115.21 kg Yasmin Brown [facility] 03-18-2018 23:39-0500 BP Diastolic 77 mm[Hg] [facility] Work Phone: 03-18-2018 23:39-0500 BP Systolic 133 mm[Hg] [facility] Work Phone: 03-18-2018 23:39-0500 Pulse (Heart Rate) 85 /min [facility] Work Phone: 03-18-2018 23:39-0500 Pulse Oximetry 97 % [facility] Work Phone: 03-18-2018 23:39-0500 Respiratory Rate 18 /min [facility] Work Phone: 03-18-2018 22:16-0500 Height 157.5 cm [facility] Work Phone: 03-18-2018 22:14-0500 Body Temperature 98.01 [degF] [facility] Work Phone: Encounters Encounter Date Encounter Type Care Provider Facility Start: 01-19-2025 End: 01-19-2025 Office outpatient new 45 minutes Sorin Escobar MD Work Phone: [facility] Comment on above: Duct ectasia of braden st, right (Primary Dx); Mastitis chronic; Nipple discharge; Cellulitis, unspecified Start: 01-19-2025 End: 01-19-2025 ambulatory SORIN ESCOBAR V Not Available Start: 01-04-2025 ambulatory Facility:[facility] Start: 05-13-2024 End: 05-13-2024 Postop follow up visit related to original px Harper CONLEY Work Phone: [facility] Comment on above: Encounter for postop erative care Start: 05-13-2024 End: 05-13-2024 ambulatory HARPER ROSALES Not Available Start: 05-13-2024 End: 05-13-2024 Bamboo flowsheet Harper Rosales PA Work Phone: [facility] Start: 05-13-2024 End: 05-13-2024 Bamboo flowsheet Harper Rosales PA Work Phone: [facility] Start: 04-07-2024 End: 04-07-2024 Bamboo flowsheet Harper Rosales PA Work Phone: [facility] Start: 04-07-2024 End: 04-07-2024 Bamboo flowsheet Harper Rosales PA Work Phone: [facility] Start: 04-07-2024 End: 04-07-2024 Postop follow up visit related to original px Harper CONLEY Work Phone: [facility] Comment on above: Postoperative visit; S/P D&C (status post dilation and curettage) Start: 04-07-2024 End: 04-07-2024 ambulatory HARPER ROSALES Not Available Start: 03-31-2024 End: 03-31-2024 Clinisync Result Encounter Hawk Héctor DO Work Phone: [facility] External Department Unsolicited Start: 03-31-2024 End: 03-31-2024 Clinisync Result Encounter Hawk Héctor DO Work Phone: [facility] External [facility] Unsolicited Start: 03-31-2024 End: 03-31-2024 ambulatory Hawk Héctor Facility:[facility] Start: 03-24-2024 End: 03-24-2024 Clinisync Result Encounter Hawk Héctor DO Work Phone: [facility] Unsolicited Start: 03-24-2024 End: 03-24-2024 Clinisync Result Encounter Hawk Héctor DO Work Phone: [facility] Unsolicited Start: 03-02-2024 End: 03-02-2024 Bamboo flowsheet Hawk Héctor DO Work Phone: [facility] Start: 03-02-2024 End: 03-02-2024 Bamboo flowsheet Hawk Héctor DO Work Phone: [facility] Start: 03-02-2024 End: 03-02-2024 Office outpatient visit 15 minutes Hawk Héctor DO Work Phone: [facility] Comment on above: Pre-op examination; Menorrhagia with regular cycle; Pelvic pain in female; Dysmenorrhea; Dyspareunia in female Start: 03-02-2024 End: 03-02-2024 Preprocedural examination done Hawk Héctor DO Work Phone: [facility] Start: 03-02-2024 End: 03-02-2024 ambulatory HAWK HÉCTOR Not Available Start: 02-13-2024 End: 02-13-2024 Clinisync Result Encounter Hawk Héctor DO Work Phone: [facility] Unsolicited Start: 02-13-2024 End: 02-13-2024 Clinisync Result Encounter Hawk Héctor DO Work Phone: [facility] Unsolicited Start: 02-13-2024 End: 02-13-2024 ambulatory Hawk Héctor [facility] Work Phone: Start: 02-13-2024 End: 02-13-2024 Departed Referred DO Hawk Héctor Work Phone: [facility] Start: 01-26-2024 End: 01-26-2024 ambulatory ALYSSA PRAKASH [facility] Start: 01-20-2024 End: 01-27-2024 Clinisync Result Encounter Hawk Héctor DO Work Phone: [facility] Unsolicited Start: 01-20-2024 End: 01-27-2024 Clinisync Result Encounter Hawk Héctor DO Work Phone: [facility] External Department Unsolicited Start: 01-20-2024 End: 01-20-2024 Patient encounter procedure Hawk Garmentory Phone: [facility] Start: 01-20-2024 End: 01-20-2024 Periodic preventive med est patient 18-39 yrs Hawk Garmentory Phone: [facility] Comment on above: Pre-op examination; Well woman exam; Thickened endometrium; Enlarged uterus; Pelvic pain in female; Abnormal uterine bleeding (AUB); Well woman exam with routine gynecological exam Start: 01-20-2024 End: 01-20-2024 Preprocedural examination done Veodia Phone: [facility] Start: 01-12-2024 End: 01-12-2024 Office outpatient new 45 minutes Alyssa Prakash [employer] Work Phone: [facility] Comment on above: Abscess of right ping ast (Primary Dx); Family history of breast cancer Start: 01-12-2024 End: 01-12-2024 ambulatory ARIANA LOPEZYN [facility] Start: 12-31-2023 End: 12-31-2023 ambulatory Sasha Alcala Facility:[facility] Start: 12-30-2023 End: 12-30-2023 Bamboo flowsheet Hwak Héctor [employer] Work Phone: [facility] Start: 12-30-2023 End: 12-30-2023 Bamboo flowsheet Hawk Hamiltono [employer] Work Phone: [facility] Start: 12-30-2023 End: 12-30-2023 Office outpatient visit 15 minutes Hawk [employer] Work Phone: [facility] Comment on above: Endometrial thickeni ng on ultrasound; Abnormal uterine bleeding (AUB); Irregular periods/menstrual cycles; Pelvic pain in female; Dysmenorrhea Start: 12-22-2023 End: 12-22-2023 Clinisync Result Encounter Veodia Phone: [facility] Unsolicited Start: 12-22-2023 End: 12-22-2023 Clinisync Result Encounter Hawk Héctor DO Work Phone: [facility] Unsolicited Start: 12-15-2023 End: 01-13-2024 Clinisync Result Encounter Hawk Héctor DO Work Phone: [facility] Unsolicited Start: 12-15-2023 End: 01-13-2024 Clinisync Result Encounter Hawk Héctor DO Work Phone: [facility] Unsolicited Start: 12-15-2023 End: 12-15-2023 Office outpatient visit 15 minutes Hawk Héctor DO Work Phone: [facility] Comment on above: Discharge from right nipple; Irregular periods/menstrual cycles; PCOS (polycystic ovarian syndrome) Start: 11-27-2023 End: 11-27-2023 Office outpatient visit 10 minutes Trayc Alejandre MD Work Phone: [facility] Comment on above: Abscess of breast (P rimary Dx); Cellulitis of right breast Start: 11-27-2023 End: 11-27-2023 ambulatory ARIANA GARZA [facility] Start: 11-06-2023 End: 11-06-2023 Office outpatient visit 15 minutes Tracy Alejandre MD Work Phone: [facility] Comment on above: Abscess of breast (P rimary Dx); Cellulitis of right breast Start: 11-06-2023 End: 11-06-2023 ambulatory ARIANA GARZA [facility] Start: 10-22-2023 End: 10-22-2023 Office outpatient visit 15 minutes Ariana Garza PA-C Work Phone: [facility] Comment on above: Cellulitis of right breast (Primary Dx); History of lump of right breast; Abscess of breast Start: 10-22-2023 End: 10-26-2023 ambulatory ARIANA GARZA [facility] Start: 10-17-2023 End: 10-17-2023 ambulatory ARIANA REYES [facility] Start: 10-17-2023 End: 10-21-[address] [facility] Start: 10-16-2023 End: 10-16-2023 Office outpatient visit 15 minutes Nicole Dean PA-C Work Phone: [facility] Comment on above: Cellulitis of right breast (Primary Dx); Mastitis Start: 10-16-2023 End: 10-16-2023 ambulatory NICOLE DEAN [facility] Start: 09-30-2023 End: 09-30-2023 Office outpatient new 30 minutes Tracy Alejandre MD Work Phone: [facility] Comment on above: Mastitis (Primary Dx ) Start: 09-30-2023 End: 09-30-2023 ambulatory TRACY ALEJANDRE II [facility] Start: 08-19-2023 End: 08-19-2023 Office outpatient visit 25 minutes Ariana WADEC Work Phone: [facility] Comment on above: Current moderate epi sode of major depressive disorder without prior episode (HCC) (Primary Dx); Prediabetes; Mastitis Start: 08-19-2023 End: 08-19-2023 ambulatory ARIANA GARZA [facility] Start: 07-03-2023 Coordination of care plan Cheri Hammond RN Patient Navigator Start: 07-03-2023 Documentation procedure Shari Tay [facility] Physician [facility] General Surgery Comment on above: Results Start: 07-01-2023 Coordination of care plan Harper Gates RN Patient Navigator Start: 07-01-2023 End: 07-02-2023 ambulatory CATRACHITO WHYTE [facility] Start: 06-18-2023 End: 06-18-2023 Orders Only Ashley Mcdaniel MD Work Phone: [facility] Start: 05-14-2023 End: 05-14-2023 Transcribe Orders Ashley Mcdaniel MD Work Phone: [facility] Comment on above: Family history of br east cancer (Primary Dx) Nipple discharge (Pr imary Dx); Family history of breast cancer in first degree relative Start: 05-14-2023 End: 05-14-2023 Office outpatient new 20 minutes Ashley Mcdaniel MD Work Phone: [facility] General Surgery Comment on above: Galactorrhea Start: 04-25-2023 End: 04-25-2023 ambulatory ARIANA GARZA [facility] Start: 04-11-2023 End: 04-11-[address] [facility] Start: 04-01-2023 End: 04-01-2023 Office outpatient visit 15 minutes Ariana Garza PA-C Work Phone: [facility] Comment on above: Discharge from right nipple (Primary Dx) Start: 04-01-2023 End: 04-05-2023 [facility] Start: 01-23-2023 End: 01-23-2023 Office outpatient visit 25 minutes Ariana Garza PA-C Work Phone: [facility] Comment on above: Current moderate epi sode of major depressive disorder without prior episode (HCC) (Primary Dx); Prediabetes; Multiple joint complaints Start: 01-23-2023 End: 01-23-2023 ambulatory ARIANA GARZA [facility] Start: 09-04-2022 End: 09-04-2022 Office outpatient visit 15 minutes Ariana Browniff PA-C Work Phone: [facility] Comment on above: Prediabetes (Primary Dx); Current moderate episode of major depressive disorder without prior episode (HCC) Start: 05-28-2022 End: 05-28-2022 Office outpatient visit 15 minutes Ariana Browniff PA-C Work Phone: [facility] Comment on above: Current moderate epi sode of major depressive disorder without prior episode (HCC) (Primary Dx); Overactive bladder Start: 03-05-2022 End: 03-05-2022 Office outpatient visit 15 minutes Ariana Garza PA-C Work Phone: [facility] Comment on above: Current moderate epi sode of major depressive disorder without prior episode (HCC) (Primary Dx); Needs flu shot Start: 02-05-2022 End: 02-05-2022 Office outpatient visit 15 minutes Ariana Garza PA-C Work Phone: [facility] Comment on above: Current moderate epi sode of major depressive disorder without prior episode (HCC) (Primary Dx) Start: 10-02-2021 Documentation procedure Shari Tay CMA [facility] Start: 10-01-2021 Coordination of care plan Elisha ross RN Patient Navigator Start: 10-01-2021 End: 10-01-2021 Office outpatient new 20 minutes Ashley Mcdaniel MD Work Phone: [facility] Comment on above: Abnormal mammogram o f right breast (Primary Dx) Start: 09-21-2021 Coordination of care plan Elisha ross RN Patient Navigator Comment on above: Mass of right breast , unspecified quadrant (Primary Dx) Start: 09-10-2021 End: 09-10-2021 Office outpatient new 30 minutes Priya Jorge TECHNICAL CABLE JOINTER Work Phone: [facility] Comment on above: Suppurative hidraden itis (Primary Dx); Family history of breast cancer; Encounter for screening for malignant neoplasm of breast, unspecified screening modality Start: 04-29-2021 Orders Only Harper sanchez TECHNICAL CABLE JOINTER Work Phone: [facility] Comment on above: Encntr for obs for s intermediate expsr to oth biolg agents ruled out (Primary Dx) Start: 12-09-2020 End: 12-09-2020 Emergency department patient visit [facility] Start: 08-04-2020 End: 08-04-2020 Initial preventive medicine new pt age 18-39yrs Raleighsandee Leal Work Phone: [facility] Comment on above: Well adult health ch tiarra (Primary Dx) Start: 01-05-2020 End: 01-05-2020 ambulatory PHYSICIAN [facility] Start: 12-14-2019 End: 12-14-2019 Office outpatient visit 15 minutes Lana Harjit Work Phone: [facility] Comment on above: Essential hypertensi on (Primary Dx); Post-traumatic stress Start: 12-07-2019 End: 12-07-2019 Office outpatient visit 15 minutes Lana Harjit Work Phone: 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); Menorrhagia with regular cycle Start: 12-05-2019 End: 12-06-2019 Emergency department patient visit Surekha Quintanilla Work Phone: [facility] Start: 06-25-2019 End: 06-25-2019 Subsequent hospital visit by physician Lana Lombardi Work Phone: [facility] [employer] Comment on above: Arrived Start: 06-25-2019 End: 06-25-2019 Office outpatient visit 15 minutes Lana Harjit Work Phone: [facility] Comment on above: Essential hypertensi on (Primary Dx); Long Q-T syndrome; Tobacco use Start: 06-10-2019 End: 06-10-2019 Office outpatient visit 15 minutes Lana Harjit Work Phone: [facility] Comment on above: Post-traumatic stres s (Primary Dx) Start: 03-17-2019 End: 03-17-2019 Office outpatient visit 15 minutes Lana Harjit Work Phone: [facility] Comment on above: Post-traumatic stres s (Primary Dx) Start: 02-01-2019 End: 02-01-2019 Telephone encounter Mady Hunter [facility] Comment on above: Other Start: 01-25-2019 End: 01-25-2019 Office outpatient visit 15 minutes Lana Lombardi Work Phone: [facility] Comment on above: Post-traumatic stres s (Primary Dx) Start: 01-21-2019 End: 01-21-2019 Telephone encounter Love Nelson [facility] Comment on above: Results Start: 01-19-2019 End: 01-19-2019 Letter encounter Lana Lombardi Work Phone: [facility] Start: 11-24-2018 End: 11-24-2018 Initial preventive medicine new pt age 18-39yrs Lana Lombardi Work Phone: [facility] Comment on above: Encounter for well w hortensia exam without gynecological exam (Primary Dx); Elevated TSH; BMI 45.0-49.9, adult Start: 10-13-2018 End: 10-17-2018 Patient encounter procedure YASMIN BROWN [facility] Start: 10-13-2018 End: 10-13-2018 Office outpatient new 20 minutes Yasmin Brown Work Phone: [facility] [place] Comment on above: Foot pain, right (Pr imary Dx); Elevated blood pressure reading; Tobacco use Start: 03-18-2018 End: 03-18-2018 Emergency department patient visit Tejinder Case Work Phone: [facility] Emergency Medicine Procedures Date Procedure Procedure Detail Performing Clinician Start: 03-31-2024 ALL CBC WITH AUTO DIFF Hawk Héctor DO Work Phone: Start: 03-24-2024 ALL CBC WITH AUTO DIFF Hawk Héctor DO Work Phone: Start: 02-13-2024 ALL CBC WITH AUTO DIFF Hawk Héctor DO Work Phone: Start: 01-20-2024 IGP,APTIMA HPV,AGE GDLN Hawk Héctor DO Work Phone: Start: 01-20-2024 Microscopic observat ion [Identifier] in Cervix by Cyto stain Sorin Henderson MD Work Phone: Start: 12-22-2023 ALL CBC WITH AUTO DIFF Hawk Anaya DO Work Phone: Start: 12-15-2023 TB BOX TEST SENT OUT C tari Anaya DO Work Phone: Start: 08-04-2020 Adult depression screening assessment Maikel Leal Start: 05-08-2020 Microscopic observat ion [Identifier] in Cervix by Cyto stain Raleighsandee Tommy Start: 12-05-2019 CT of thoracic spine Il liannachristopher Quintanilla Work Phone: Start: 12-05-2019 CT of lumbar spine Ilen e Olga Quintanilla Work Phone: Start: 06-25-2019 Standard ECG Lana Kameron fowler Work Phone: Start: 10-13-2018 X-ray of right foot Pat basil Brown Work Phone: H/O: surgery S/P D&C (status post dilation and curettage) Harper CONLEY Work Phone: Plan of Treatment Date Care Activity Detail Author Start: 03-05-2028 Pneumococcal Vaccine : Ped or At-Risk (1 - PCV) Pneumococcal Vaccine: Ped or At-Risk (1 - PCV) [facility] Comment on above: Postponed from 06/01 (Not Indicated) Start: 03-05-2028 Pneumococcal Vaccine : Ped or At-Risk (1 of 2 - PCV) Pneumococcal Vaccine: Ped or At-Risk (1 of 2 - PCV) [facility] Comment on above: Postponed from 06/01 (Not Indicated) Start: 01-19-2027 Screening for malign ant neoplasm of cervix [facility] Start: 03-02-2025 End: 03-02-2025 Patient encounter procedure 03/02/2025 10:15 AM EST Office Visit [facility] [address] [place] [address] Sorin Escobar MD [address] [place] [address] [facility] Start: 02-08-2025 End: 02-08-2025 Patient encounter procedure 02/08/2025 10:00 AM EDT Office Visit [facility] [address] [facility] [phone] Hawk Anaya, DO [address] [place] [address] [facility] Start: 01-24-2025 End: 01-24-2025 Patient encounter procedure 01/24/2025 1:00 PM EDT Office Visit [facility] [address] [facility] [id number] Hawk Anaya, DO [address] [place] [address] [facility] Start: 12-27-2024 Influenza vaccination Influenza Vacc ine (#1) [facility] Start: 05-13-2024 End: 05-13-2024 Patient encounter procedure 05/13/2024 3:00 PM EST Office Visit [facility] [address] [facility] [phone] Harper Rosales PA [address] [place] [address] Arrived [facility] Comment on above: [...] [facility] Hawk Anaya, DO [address] [place] [address] [facility] Start: 01-26-2024 End: 01-26-2024 Patient encounter procedure 01/26/2024 10:45 AM EDT Office Visit [facility] [address] [place] [address] Alyssa Prakash, TECHNICAL CABLE JOINTER [address] [place] [address] [facility] Start: 01-20-2024 End: 01-20-2024 Patient encounter procedure 01/20/2024 10:20 AM EDT Office Visit [facility] [address] [place] [phone] Hawk Anaya DO [address] [place] [address] [facility] Start: 01-12-2024 End: 01-11-2025 Microbial culture, body fluid [facility] Work Phone: Comment on above: Expected: 01/12/2024 , Expires: 01/11/2025 Start: 12-30-2023 End: 12-30-2023 Patient encounter procedure [facility] Comment on above: Arrived Start: 12-28-2023 COVID-19 Vaccine ( season) COVID-19 Vaccine ( season) [facility] Start: 12-28-2023 Influenza vaccination [facility] Start: 12-22-2023 End: 12-22-2023 Professional / ancillary services management 12/22/2023 9:00 AM EDT Ancillary Procedure [facility] [address] [place] [phone] [facility] Start: 12-18-2023 End: 12-18-2023 Patient encounter procedure 12/18/2023 8:40 AM EDT Office Visit [facility] [address] [place] [phone] Ariana Garza PA-C [address] [place] [address] [facility] Start: 12-15-2023 End: 12-14-2024 DHEA DHEA Lab Routine Discharge from right nipple Irregular periods/menstrual cycles Expected: 12/15/2023 (Approximate), Expires: 12/14/2024 [facility] Comment on above: Expected: 12/15/2023 (Approximate), Expires: 12/14/2024 Start: 12-15-2023 End: 12-14-2024 US for US PELVIS-TRANSVAG IF INDICATED Imaging Routine Discharge from right nipple Irregular periods/menstrual cycles Expected: 12/15/2023 (Approximate), Expires: 12/14/2024 [facility] Comment on above: Expected: 12/15/2023 (Approximate), Expires: 12/14/2024 Start: 11-27-2023 End: 11-27-2023 Patient encounter procedure 11/27/2023 11:00 AM EDT Office Visit [facility] [address] [place] [phone] LeticiaTracy wray II, MD [address] [place] [address] [place] [address] [facility] Start: 11-23-2023 Depression Remission Assessment (PHQ9) Depression Remission Assessment (PHQ9) [facility] Start: 11-13-2023 End: 11-13-2023 Patient encounter procedure 11/13/2023 2:15 PM EDT Office Visit [facility] [address] [place] [phone] Tracy Alejandre II, MD [address] [place] [phone] [facility] Start: 11-06-2023 End: 11-06-2023 Patient encounter procedure 11/06/2023 9:30 AM EDT Office Visit [facility] [address] [place] [phone] Tracy Alejandre II, MD [address] [place] [address] [facility] Start: 10-17-2023 End: 10-17-2023 Patient encounter procedure 10/17/2023 12:45 PM EDT Appointment [facility] [address] [place] [address] [facility] Start: 08-05-2023 End: 08-05-2023 Patient encounter procedure 08/05/2023 11:00 AM EDT Office Visit [facility] [address] [place] [phone] Ariana Garza PA-C [address] [place] [address] [facility] Start: 07-07-2023 End: 07-07-2023 Patient encounter procedure 07/07/2023 8:00 AM EDT Office Visit [facility] [address] [place] [address] Ashley Mcdaniel III, MD [address] [place] [address] [facility] Start: 07-01-2023 End: 07-01-2023 Patient encounter procedure [facility] Start: 05-08-2023 Screening for malign ant neoplasm of cervix [facility] Start: 04-25-2023 End: 04-25-2023 Patient encounter procedure 04/25/2023 11:00 AM EST Office Visit [facility] [address] [place] [phone] Ariana Garza PA-C [address] [place] [address] [facility] Start: 04-11-2023 End: 04-11-2023 Patient encounter procedure [facility] Start: 01-08-2023 End: 01-08-2023 Patient encounter procedure 01/08/2023 10:40 AM EDT Office Visit [facility] [address] [place] [address] Ariana Garza PA-C [address] [place] [address] [facility] Start: 12-27-2022 COVID-19 Vaccine () COVID-19 Vaccine () [facility] Start: 12-27-2022 COVID-19 Vaccine () COVID-19 Vaccine () [facility] Start: 12-27-2022 Influenza vaccination Sequenti al Influenza Vaccine (#1) [facility] Start: 12-06-2022 Depression Remission Assessment (PHQ9) Depression Remission Assessment (PHQ9) [facility] Start: 08-20-2022 End: 08-20-2022 Patient encounter procedure 08/20/2022 Office Visit Primary Care Ariana Garza PA-C [address] [place] [address] [facility] Start: 05-28-2022 End: 05-28-2022 Patient encounter procedure 05/28/2022 Office Visit Primary Care Ariana Garza PA-C [address] [place] [address] [facility] Start: 03-05-2022 End: 03-05-2022 Patient encounter procedure 03/05/2022 Office Visit Primary Care Ariana Garza PA-C [address] [place] [address] [facility] Start: 12-27-2021 Influenza vaccination Sequenti al Influenza Vaccine (#1) [facility] Start: 10-01-2021 End: 10-01-2021 Patient encounter procedure 10/01/2021 Appointment Radiology Ashley Mcdaniel III, MD [address] [place] [address] [facility] Start: 10-01-2021 End: 10-01-2021 Patient encounter procedure [facility] Start: 09-11-2021 End: 09-11-2021 Patient encounter procedure 09/11/2021 Appointment Radiology Priya Jorge, TECHNICAL CABLE JOINTER [address] [place] [address] [facility] Start: 09-11-2021 COVID-19 Vaccine (3 - Booster for Moderna series) COVID-19 Vaccine (3 - Booster for Moderna series) [facility] Start: 08-04-2021 Adolescent depressio n screening assessment Depression Screening (PHQ9) [facility] Start: 08-04-2021 Depression screening using PHQ-9 (Patient Health Questionnaire 9) score Depression Screening (PHQ-2/9) [facility] Start: 08-04-2021 History and physical examination, annual for health maintenance Wellness Visit [facility] Start: 06-08-2021 COVID-19 Vaccine (3 - Booster for Moderna series) COVID-19 Vaccine (3 - Booster for Moderna series) [facility] Start: 06-08-2021 COVID-19 Vaccine (3 - Moderna series) COVID-19 Vaccine (3 - Moderna series) [facility] Start: 04-30-2021 End: 04-30-2021 Patient encounter procedure 04/30/2021 Office Visit Lab Harper Gabriel, TECHNICAL CABLE JOINTER [address] [address] [facility] Start: 12-27-2020 Influenza vaccination Sequenti al Influenza Vaccine (#1) [facility] Start: 03-15-2020 End: 03-15-2020 Office Visit 03/15/2020 Office Visit Family Medicine HarjitLana fowler SHIPPING AND RECEIVING WEIGHER-TECHNICAL CABLE JOINTER [address] [place] [address] [facility] Start: 12-28-2019 Influenza vaccination INFLUENZA VACC INE (#1) [facility] Start: 12-28-2019 Influenza vaccinatio n given Sequential Influenza Vaccine (#1) [facility] Start: 12-14-2019 End: 12-14-2019 Office Visit 12/14/2019 Office Visit Family Medicine HarjitLana fowler SHIPPING AND RECEIVING WEIGHER-TECHNICAL CABLE JOINTER [address] [place] [address] [facility] Start: 07-12-2019 End: 07-12-2019 Office Visit 07/12/2019 Office Visit Family Medicine Lana Lombardi APRN-TECHNICAL CABLE JOINTER [address] [place] [address] [facility] Start: 06-25-2019 End: 06-25-2020 Standard ECG ECG ECG Routine Essential hypertension Expected: 06/25/2019, Expires: 06/25/2020 [facility] Comment on above: Expected: 06/25/2019 , Expires: 06/25/2020 Start: 03-08-2019 End: 03-08-2019 Office Visit 03/08/2019 Office Visit Family Medicine Lana Lombardi APRN-TECHNICAL CABLE JOINTER [address] [place] [address] [facility] Start: 01-25-2019 End: 01-25-2019 Office Visit 01/25/2019 Office Visit Family Medicine Lana Lombardi SHIPPING AND RECEIVING WEIGHER-TECHNICAL CABLE JOINTER [address] [place] [address] [facility] Start: 12-27-2018 Influenza vaccination INFLUENZA VACC INE (#1) [facility] Start: 12-27-2018 Influenza vaccinatio n given SEQUENTIAL INFLUENZA VACCINE (Season Ended) [facility] Start: 11-24-2018 End: 11-25-2019 CBC, EDIF, PLATELET CBC, EDIF, PLATELET Lab Routine Encounter for well woman exam without gynecological exam Expected: 11/24/2018, Expires: 11/25/2019 [facility] Comment on above: Expected: 11/24/2018 , Expires: 11/25/2019 Start: 11-24-2018 End: 11-25-2019 Comprehensive metabolic 2000 panel COMPREHENSIVE METABOLIC PANEL Lab Routine Encounter for well woman exam without gynecological exam Expected: 11/24/2018, Expires: 11/25/2019 [facility] Comment on above: Expected: 11/24/2018 , Expires: 11/25/2019 Start: 11-24-2018 End: 11-25-2019 LIPID PANEL W CALCULATED LDL LIPID PANEL W CALCULATED LDL Lab Routine Encounter for well woman exam without gynecological exam Expected: 11/24/2018, Expires: 11/25/2019 [facility] Comment on above: Expected: 11/24/2018 , Expires: 11/25/2019 Start: 11-24-2018 End: 11-25-2019 TSH W/FT4 REFLEX TSH W/FT4 REFLEX Lab Routine Encounter for well woman exam without gynecological exam Elevated TSH Expected: 11/24/2018, Expires: 11/25/2019 [facility] Comment on above: Expected: 11/24/2018 , Expires: 11/25/2019 Start: 12-27-2017 Influenza vaccination INFLUENZA VACC INE (#1) [facility] Work Phone: Start: 2016 Screening for malign ant neoplasm of cervix HPV/Cotest [facility] Start: 2007 Screening for malign ant neoplasm of cervix [facility] Work Phone: Start: 2005 Third diphtheria, te tanus and acellular pertussis (DTaP) vaccination TDAP (ADULT) [facility] Work Phone: Start: 2004 Hepatitis C antibody , confirmatory test Hepatitis C Screening [facility] Start: 2004 Hepatitis C screening Hepatitis C Sc reening [facility] Start: 2004 [facility] Start: 2002 COVID-19 Vaccine (1) COVID-19 Vaccin e (1) [facility] Start: 2001 HIV screening HIV Screening [facility] Start: 1999 HIV screening HIV SCREENING DISCUSSION [facility] Work Phone: Start: 1992 Pneumococcal Vaccine : Ped or At-Risk (1 - PCV) Pneumococcal Vaccine: Ped or At-Risk (1 - PCV) [facility] Start: 1992 Pneumococcal Vaccine : Ped or At-Risk (1 of 2 - PPSV23) Pneumococcal Vaccine: Ped or At-Risk (1 of 2 - PPSV23) [facility] Start: 1991 COVID-19 Vaccine (1) COVID-19 Vaccin e (1) [facility] Start: 1989 History and physical examination, annual for health maintenance Wellness Visit [facility] Start: 1986 Screening for malign ant neoplasm of cervix PAP SMEAR [facility] Start: 1986 Tetanus vaccination [facility] Aerobic culture Aerobic culture Microbiology Routine Discharge from right nipple Ordered: 12/15/2023 [facility] Comment on above: Ordered: 12/15/2023 Anaerobic culture Anaerobic cult ure Microbiology Routine Discharge from right nipple Ordered: 12/15/2023 [facility] Work Phone: Comment on above: Ordered: 12/15/2023 CBC W Auto Different ial panel - Blood CBC and differential Lab Routine Discharge from right nipple Irregular periods/menstrual cycles Ordered: 12/15/2023 [facility] Comment on above: Ordered: 12/15/2023 End: 09-05-2023 Complete blood count with white cell differential, manual CBC and Differential Lab Routine Prediabetes 1 Occurrences starting 09/04/2022 until 09/05/2023 [facility] Comment on above: 1 Occurrences starti ng 09/04/2022 until 09/05/2023 End: 08-19-2024 Complete blood count with white cell differential, manual CBC and Differential Lab Routine Prediabetes 1 Occurrences starting 08/19/2023 until 08/19/2024 [facility] Comment on above: 1 Occurrences starti ng 08/19/2023 until 08/19/2024 End: 09-05-2023 Comprehensive metabolic 2000 panel - Serum or Plasma Comprehensive Metabolic Panel Lab Routine Prediabetes 1 Occurrences starting 09/04/2022 until 09/05/2023 [facility] Comment on above: 1 Occurrences starti ng 09/04/2022 until 09/05/2023 End: 01-24-2024 Comprehensive metabolic 2000 panel - Serum or Plasma Comprehensive Metabolic Panel Lab Routine Prediabetes 1 Occurrences starting 01/23/2023 until 01/24/2024 [facility] Comment on above: 1 Occurrences starti ng 01/23/2023 until 01/24/2024 End: 08-19-2024 Comprehensive metabolic 2000 panel - Serum or Plasma Comprehensive Metabolic Panel Lab Routine Prediabetes 1 Occurrences starting 08/19/2023 until 08/19/2024 [facility] Comment on above: 1 Occurrences starti ng 08/19/2023 until 08/19/2024 Cytology Cervical or vaginal smear or scraping study Pap Smear Pathology and Cytology Routine Well woman exam with routine gynecological exam Ordered: 01/20/2024 [facility] Work Phone: Comment on above: Ordered: 01/20/2024 DHEA-sulfate DHEA-sulfate Lab Routine Discharge from right nipple Irregular periods/menstrual cycles Ordered: 12/15/2023 [facility] Comment on above: Ordered: 12/15/2023 Follicle stimulating hormone Follicle stimulating hormone Lab Routine Discharge from right nipple Irregular periods/menstrual cycles Ordered: 12/15/2023 [facility] Comment on above: Ordered: 12/15/2023 hCG, quantitative, hCG, quantitative, Lab Routine Discharge from right nipple Irregular periods/menstrual cycles Ordered: 12/15/2023 [facility] Comment on above: Ordered: 12/15/2023 End: 09-05-2023 Hemoglobin A1c/Hemoglobin.total in Blood Hemoglobin A1c Lab Routine Prediabetes 1 Occurrences starting 09/04/2022 until 09/05/2023 [facility] Work Phone: Comment on above: 1 Occurrences starti ng 09/04/2022 until 09/05/2023 End: 01-24-2024 Hemoglobin A1c/Hemoglobin.total in Blood Hemoglobin A1c Lab Routine Prediabetes 1 Occurrences starting 01/23/2023 until 01/24/2024 [facility] Work Phone: Comment on above: 1 Occurrences starti ng 01/23/2023 until 01/24/2024 End: 08-19-2024 Hemoglobin A1c/Hemoglobin.total in Blood Hemoglobin A1c Lab Routine Prediabetes 1 Occurrences starting 08/19/2023 until 08/19/2024 [facility] Work Phone: Comment on above: 1 Occurrences starti ng 08/19/2023 until 08/19/2024 Hemoglobin A1c/Hemoglobin.total in Blood Hemoglobin A1c Lab Routine Discharge from right nipple Irregular periods/menstrual cycles Ordered: 12/15/2023 [facility] Comment on above: Ordered: 12/15/2023 Human papilloma viru s DNA [Presence] in Unspecified specimen by Probe with amplification HPV DNA probe, amplified Microbiology Routine Well woman exam with routine gynecological exam Ordered: 01/20/2024 [facility] Comment on above: Ordered: 01/20/2024 INR Coag RelTime (Bld) XR Foot R ight 3+ Views (Standard) Imaging STAT Foot pain, right 10/13/2018 11:25 AM EDT [facility] End: 09-05-2023 Lipid 1996 panel - Serum or Plasma Lipid Panel Lab Routine Prediabetes 1 Occurrences starting 09/04/2022 until 09/05/2023 [facility] Comment on above: 1 Occurrences starti ng 09/04/2022 until 09/05/2023 End: 08-19-2024 Lipid 1996 panel - Serum or Plasma Lipid Panel Lab Routine Prediabetes 1 Occurrences starting 08/19/2023 until 08/19/2024 [facility] Comment on above: 1 Occurrences starti ng 08/19/2023 until 08/19/2024 Luteinizing hormone Luteinizing hormone Lab Routine Discharge from right nipple Irregular periods/menstrual cycles Ordered: 12/15/2023 [facility] Comment on above: Ordered: 12/15/2023 End: 06-02-2024 MG Breast - bilateral Diagnostic Mammography Diagnostic Emile Bilateral Imaging Routine Discharge from right nipple 1 Occurrences starting 04/01/2023 until 06/02/2024 [facility] Comment on above: 1 Occurrences starti ng 04/01/2023 until 06/02/2024 End: 11-10-2022 MG Breast - bilateral Screening Mammography Screening Emile Bilateral Imaging Routine Encounter for screening for malignant neoplasm of breast, unspecified screening modality 1 Occurrences starting 09/10/2021 until 11/10/2022 [facility] Work Phone: Comment on above: 1 Occurrences starti ng 09/10/2021 until 11/10/2022 End: 05-14-2024 MR Breast - bilateral WO and W contrast IV MR Breast Bilateral With And Without Contrast Imaging Routine Nipple discharge Family history of breast cancer in first degree relative 1 Occurrences starting 05/14/2023 until 05/14/2024 [facility] Work Phone: Comment on above: 1 Occurrences starti ng 05/14/2023 until 05/14/2024 End: 06-18-2024 MR Guidance for biopsy of Breast - right MR Breast Core Biopsy Right Imaging Routine 1 Occurrences starting 06/18/2023 until 06/18/2024 [facility] Comment on above: 1 Occurrences starti ng 06/18/2023 until 06/18/2024 Prolactin Prolactin Lab Ro utine Discharge from right nipple Irregular periods/menstrual cycles Ordered: 12/15/2023 [facility] Comment on above: Ordered: 12/15/2023 End: 04-01-2024 Prolactin [Mass/volume] in Serum or Plasma Prolactin Lab Routine Discharge from right nipple 1 Occurrences starting 04/01/2023 until 04/01/2024 [facility] Comment on above: 1 Occurrences starti ng 04/01/2023 until 04/01/2024 Prolactin [Mass/volu me] in Serum or Plasma Prolactin Lab Routine Discharge from right nipple 04/01/2023 10:25 AM EST [facility] End: 04-29-2022 SARS-CoV-2 (COVID-19) RNA [Presence] in Respiratory specimen by ALFREDO with probe detection COVID-19/Influenza A,B Molecular Microbiology Routine Encntr for obs for susp expsr to oth biolg agents ruled out 1 Occurrences starting 04/29/2021 until 04/29/2022 [facility] Work Phone: Comment on above: 1 Occurrences starti ng 04/29/2021 until 04/29/2022 End: 09-05-2023 Thyrotropin [Units/volume] in Serum or Plasma TSH Lab Routine Prediabetes 1 Occurrences starting 09/04/2022 until 09/05/2023 [facility] Comment on above: 1 Occurrences starti ng 09/04/2022 until 09/05/2023 Thyrotropin [Units/volume] in Serum or Plasma TSH Lab Routine Discharge from right nipple Irregular periods/menstrual cycles Ordered: 12/15/2023 [facility] [email or web address] Comment on above: Ordered: 12/15/2023 End: 09-05-2023 Thyroxine (T4) free [Mass/volume] in Serum or Plasma T4, Free Lab Routine Prediabetes 1 Occurrences starting 09/04/2022 until 09/05/2023 [facility] Comment on above: 1 Occurrences starti ng 09/04/2022 until 09/05/2023 Thyroxine (T4) free [Mass/volume] in Serum or Plasma T4, free Lab Routine Discharge from right nipple Irregular periods/menstrual cycles Ordered: 12/15/2023 [facility] Comment on above: Ordered: 12/15/2023 End: 09-21-2022 Ultrasonography guided biopsy of right breast US Breast Biopsy Right Imaging Routine Mass Of Right Breast, Unspecified Quadrant 1 Occurrences starting 09/21/2021 until 09/21/2022 [facility] Work Phone: Comment on above: 1 Occurrences starti ng 09/21/2021 until 09/21/2022 End: 04-01-2024 US Breast - right US Breast Right Complete Imaging Routine Discharge from right nipple 1 Occurrences starting 04/01/2023 until 04/01/2024 [facility] Work Phone: Comment on above: 1 Occurrences starti ng 04/01/2023 until 04/01/2024 End: 06-18-2024 US Breast - right US Breast Right Complete Imaging Routine 1 Occurrences starting 06/18/2023 until 06/18/2024 [facility] Work Phone: Comment on above: 1 Occurrences starti ng 06/18/2023 until 06/18/2024 End: 09-29-2024 US Breast - right US Breast Right Complete Imaging Routine Mastitis 1 Occurrences starting 09/30/2023 until 09/29/2024 [facility] Work Phone: Comment on above: 1 Occurrences starti ng 09/30/2023 until 09/29/2024 End: 06-18-2024 US Guidance for biopsy of Breast - right US Breast Biopsy Right Imaging Routine 1 Occurrences starting 06/18/2023 until 06/18/2024 [facility] Comment on above: 1 Occurrences starti ng 06/18/2023 until 06/18/2024 Immunizations Immunization Date Immunization Notes Care Provider Kameron clemons 03-05-2022 Seasonal, quadrivale nt, recombinant, injectable influenza vaccine, preservative free Ariana Graza PA-C Work Phone: [facility] 03-05-2022 flu vac qv 2021,18yr up,rcm-PF (FLUBLOK QUAD) syringe Arianadutch Garza PA-C Work Phone: [facility] 03-05-2022 influenza virus vaccine, unspecified formulation Ariana Garza PA-C Work Phone: [facility] 03-17-2019 influenza virus vaccine, unspecified formulation [facility] Payers Date Payer Category Payer Private Health Insurance [employer] [id number] 2025 Unknown [id number] 2023 Self-pay 2022 Blue [employer] Blue Shield [id number] 2022 Unknown [id number] 2020 Unknown [employer] - PREFERRED [id number] 2020-Present [id number]. [id number] 2020 Unknown [id number] 2020 Unknown [id number] 1.13.385.2. [id number] 2018 Private Health Insurance [id number] 2018 Private Health Insurance [id number] 1986 Unknown [id number] 2.16.840.1.799022.3.579.2. 90 1986 Unknown [id number] 2.16.840.1.861686.3.579.2 903 1986 Unknown [id number] 2.16.840.1.032847.3.579.2. 903 1986 Unknown [id number] 2.16.840.1.769742.3.579.2. 900 1986 Unknown [id number] 2.16.840.1.562063.3.579.2. 900 1986 Unknown [id number] 2.16.840.1.931822.3.579.2. 900 1986 Unknown [id number] 2.16.840.1.885178.3.579.2 90 1986 Unknown [id number] 2.16.840.1.339870.3.579.2 903 1986 Unknown [id number] 2.16.840.1.586395.3.579.2 1986 Unknown [id number] 2.16.840.1.812577.3.579.2 90 1986 Unknown [id number] 2.16.840.1.625563.3.579.2 1986 Unknown [id number] 2.16.840.1.079106.3.579.2. 903 1986 Unknown [id number] 2.16.840.1.863629.3.579.2. 90 1986 Unknown [id number] 2.16.840.1.781201.3.579.2. 903 1986 Unknown [id number] 2.16.840.1.330561.3.579.2 1986 Unknown [id number] 2.16.840.1.518983.3.579.2. 1986 Unknown [id number] 2.16.840.1.379109.3.579.2 1986 Unknown [id number] 2.16.840.1.119254.3.579.2 1986 Unknown [id number] 2.16840.1.264529.3.579.2 1986 Unknown [id number] 2.16.840.1.958755.3.579.2 1986 Unknown [id number] 2.16840.1.938659.3.579.2 1986 Unknown [id number] 2.16840.1.925662.3.579.2 1986 Unknown [id number] 2.16840.1.431450.3.579.2 1986 Unknown [id number] 2.16840.1.924977.3.579.2 1986 Unknown [id number] 2.16840.1.486919.3.579.2. 9 1986 Unknown [id number] 2.16840.1.951362.3.579.2. 1258 1986 Unknown [id number] 2.16840.1.283399.3.579.2. 9 1986 Unknown [id number] 2.16840.1.575508.3.579.2. 1259 Unknown [id number] 2.16840.1.488536.3.579.2. 462 Unknown [place] BC/BS [id number] Unknown [id number] 2.16840.1.418146.3.579.2. 531 Unknown [id number] 2.16.840.1.787521.3.579.2. 531 Social History Date Type Detail Facility Start: 05-29-2004 End: 01-11-2025 Tobacco smoking status NHIS Current every day smoker [facility] Work Phone: Start: 03-18-2018 End: 01-19-2025 Cigarettes smoked current (pack per day) - Reported [facility] Start: 1985 Sex Assigned At Not on file [facility] Work Phone: Start: 05-29-2004 History of tobacco use Cigarette Smoker [facility] Start: 10-13-2018 End: 02-05-2022 History SDOH Alcohol Frequency 1 [facility] Start: 01-31-2019 End: 01-19-2025 Alcohol intake No [facility] Start: 03-17-2019 End: 06-10-2019 Alcohol intake Current non-drinker of alcohol (finding) [facility] Start: 06-25-2019 End: 01-11-2025 Tobacco use and exposure Never used [facility] Start: 08-31-2021 End: 09-04-2022 Exposure to SARS-CoV-2 (event) Not sure [facility] Start: 12-14-2019 Tobacco Comment 10-15 cigarettes a day. [facility] Start: 08-04-2020 End: 01-12-2024 Tobacco use and exposure Former user [facility] End: 03-12-2020 History of tobacco use User of smokeless tobacco [facility] Start: 08-04-2020 End: 01-19-2025 Alcohol intake Lifetime non-drinker (finding) [facility] Start: 08-04-2020 End: 02-05-2022 History SDOH Social Connections Phone 5 [facility] Start: 08-04-2020 History SDOH Social Connections Get Together 4 [facility] Start: 08-04-2020 End: 02-05-2022 History SDOH Social Connections Membership [facility] Start: 08-04-2020 History SDOH Social Connections Living 3 [facility] Start: 08-04-2020 History SDOH Physical Activity DPW 0 [facility] Start: 09-10-2021 End: 05-16-2023 Tobacco smoking status NHIS Ex-smoker [facility] Start: 02-23-2022 End: 01-12-2024 Alcohol intake Ex-drinker (finding) [facility] Start: 02-05-2022 Alcohol Comment rare [facility] Within the last year , have you been afraid of your partner or ex-partner? No [facility] Are you now , , , , never or living with a partner? [facility] How often to you hav e a drink containing alcohol? Never [facility] Average Number of Drinks Not on file [facility] Do you feel stress - tense, restless, nervous, or anxious, or unable to sleep at night because your mind is troubled all the time - these days [OSQ] Not at all [facility] (I/We) worried wheth er (my/our) food would run out before (I/we) got money to buy more. Never true [facility] Start: 05-08-2020 Gender identity Identifies as female gender (finding) [facility] Start: 05-08-2020 Sexual orientation Heterosexual (finding) [facility] History of tobacco use Current smoker [facility] How hard is it for y ou to pay for the very basics like food, housing, medical care, and heating Not very hard [facility] Start: 1985 Sex Assigned At Female [facility] Start: 01-19-2025 Alcohol Comment Alcohol use rarely [facility] Clinical Notes 04-29-2021 to 01-19-2025 Sorin Henderson MD - 01/19/2025 11:00 AM YAEL Swann - 05/13/2024 3:00 PM YAEL Issa - 04/07/2024 11:20 AM TANNAMigali Siu - 03/02/2024 10:20 AM ESTPatient Instructions Note Date & Type Note Facility 01-19-2025 History of Presen t illness Narrative Images from the original note were not included. Lele Gates 1985 Lele Gates is a 39 y.o. female presents with chief complaint of Consult (Recurrent Rt breast mastitis) HPI: Lele is a 39 y/o female with a history of mastitis. Patient states she had an ultrasound guided breast biopsy with clip placement in late 2022/early 2023. Pathology was benign. Biopsy was done for a dilated duct in the upper medial right breast. She states after that procedure she had inflammation around the nipple and can feel that the clip is very superficial. When it gets inflamed she has pain, bloody/mucous drainage from the nipple, erythema, and swelling. She states she then saw plastic surgery for about 8 months where they treated with a few trials of antibiotics with no resolution. Patient states she then went to her Contact Lens Fitter and was diagnosed with mastitis with cultures testing positive for a staphylococcus infection. In December 2023 she had an incision and drainage of the area that was packed and had dressing changes. This was performed in [place]. Patient still complains of frequent inflammation when she gets sinus infections or other illnesses. A few days ago, patient again developed swelling in the upper medial right breast region.Recently she rolled over and the abscess burst. Patient states she wants to have the clip removed as well as get the duct removed if that will help with her symptoms. She has a family history of her mother having inflammatory breast cancer. She had a normal mammogram last year and a negative blood culture a week and a half ago. SUBJECTIVE: MEDICATIONS: ALLERGIES No current outpatient medications Allergies Allergen Reactions Bee Venom Anaphylaxis Ibuprofen Nausea And Vomiting Other Reaction(s): GI Intolerance Severe vomiting PAST MEDICAL HISTORY: SOCIAL HISTORY SURGICAL HISTORY: Past Medical History: Diagnosis Date Abnormal blood sugar Long Q-T syndrome Menorrhagia Social History Tobacco Use Smoking status: Every Day Current packs/day: 1.00 Average packs/day: 1 pack/day for 20.6 years (20.6 ttl pk-yrs) Types: Cigarettes Start date: 05/29/2004 Smokeless tobacco: Never Substance Use Topics Alcohol use: Never Comment: Alcohol use rarely Drug use: Never Past Surgical History: Procedure Laterality Date BREAST BIOPSY Right x2 2023-top, 2022-bottom CYST REMOVAL hand DILATION AND CURETTAGE OF UTERUS 2011 DILATION AND CURETTAGE OF UTERUS 02/13/2024 HYSTERECTOMY REVIEW OF SYMPTOMS: Review of Systems Constitutional: Negative for fatigue, fever and unexpected weight change. Breasts: Positive for breast mass and breast discharge. Respiratory: Negative for cough, shortness of breath and wheezing. Cardiovascular: Negative for chest pain and palpitations. Gastrointestinal: Negative for nausea and vomiting. Neurological: Negative for syncope. OBJECTIVE: Visit Vitals BP 120/78 Ht 5' 3 Wt 299 lb BMI 52.97 kg/m OB Status Having periods Smoking Status Every Day BSA 2.46 m Physical Exam Exam conducted with a baseball glove stuffer present. Constitutional: Appearance: Normal appearance. Cardiovascular: Rate and Rhythm: Normal rate and regular rhythm. Heart sounds: No murmur heard. No friction rub. No gallop. Comments: Asymptomatic long QT syndrome Pulmonary: Effort: No respiratory distress. Breath sounds: Normal breath sounds. No wheezing, rhonchi or rales. Chest: Comments: In the upper medial portion of the right breast near the areola, there is evidence of her previously opened abscess. Currently, no drainage is noted. Around the periareolar region, there is some swelling. Skin: General: Skin is warm and dry. Neurological: Mental Status: She is alert. ASSESSMENT AND PLAN: Assessment/Plan Diagnoses and all orders for this visit: Duct ectasia of breast, right Mastitis chronic - Ambulatory referral to General Surgery Nipple discharge Cellulitis, unspecified - Ambulatory referral to General Surgery Plan will be to excise the breast ducts at the upper inner quadrant of the nipple-areolar region. If the clip is encountered, this would be removed. If there is evidence of abscess, incision and drainage would be performed. If there is no evidence of infection, who would plan primary closure of the wound. If there is evidence of infection, we may leave the wound open and initiate dressing changes. The procedures, benefits, risks including risks of bleeding, infection, wound healing problems discussed. documented in this encounter [facility] 05-13-2024 History of Presen t illness Narrative Reason for Appointment: Patient ID: Lele Leon is a 38 y.o. female who presents for Post-op Visit Patient presents today for 6 week [facility] Post Op Follow Up appointment. MEDICATIONS No [...] of: YAEL Navarrete documented in this encounter [facility] 04-07-2024 History of Presen t illness Narrative [...] of: YAEL Navarrete documented in this encounter [facility] 03-02-2024 History of Presen t illness Narrative Reason for Appointment: Patient ID: Lele Leon is a 38 y.o. female who presents for No chief complaint on file. Patient presents today for Pre Op/Post Op appointment. Patient is scheduled to undergo [place] Debo assisted Laparoscopic Hysterectomy, possible exploratory laparotomy, possible BSO, possible cystoscopy on 03/31/[address] Anaya at [facility]. MEDICATIONS Current Outpatient Medications Medication Instructions [...] nursing note reviewed. Exam conducted with a baseball glove stuffer present. Vitals: Estimated body mass index is [...] having a D&C Hysteroscopy performed at [facility] with Dr. Anaya on 02/13/2024. Pathology [...] reviewed, and patient is to proceed to [facility] OR. Follow Up: Patient is to follow up at 1 & 6 weeks post operative to assess proper healing and recovery from procedure. Documented by Korina Randall LPN on behalf of: Hawk Anaya DO documented in this encounter [facility] 01-26-2024 Note TODAY'S DATE: 024 PATIENT: Lele [...] other drug use. 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 Ultrasound showed an isolated, [...] to clindamycin. She was seen by her print line inspector who cultured the nipple discharge on 12/22/2023 with results showing: Anaerobic: Bacteroides vulgatus, and Prevotella sp. Aerobic culture: staphylococcus epidermidis which was resistant to penicillins, clindamycin. This was suspectible to Bactrim and she was prescribed Bactrim x 7 days and Flagyl x 7 days. She recently finished these antibiotics. She was seen by Dr. Sasha Alcala ([place] [facility]) who referred her to our [...] 02/12 followed by a possible hysterectomy 03/30. SEASONER HAND history: Menarche: 11 /Para: Age at 1st [...] BREAST BIOPSY RI (more content not included)... [facility] 01-20-2024 History of Presen t illness Narrative Reason for Appointment: Patient ID: Lele Leon is a 38 y.o. female who presents for Well Women Visit and Pre-op Visit Patient presents today for Pre Op/Annual appointmet. Patient is scheduled to undergo Diagnostic Laparoscopy, possible JAIRO, possible FOE, possible BSO and D&C Hysteroscopy, possible Myosure on 02/13/[address] Anaya at [facility]. MEDICATIONS Current Outpatient Medications Medication Instructions [...] nursing note reviewed. Exam conducted with a baseball glove stuffer present. Vitals: Estimated body mass index is [...] reviewed, and patient is to proceed to [facility] OR. Follow Up: Patient is to follow up between 1-2 weeks post operative to assess proper healing and recovery from procedure. Documented by Korina Randall LPN on behalf of: Hawk Anaya DO documented in this encounter [facility] 01-12-2024 Alyssa Diane CNP - 01/12/2024 12:52 PM EDT [place] [employer] [email or web address] documented in this encounter [facility] 01-12-2024 Note TODAY'S DATE: 024 PATIENT: [...] other drug use. 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 Ultrasound showed an isolated, [...] to clindamycin. She was seen by her print line inspector who cultured the nipple discharge on 12/22/2023 with results showing: Anaerobic: Bacteroides vulgatus, and Prevotella sp. Aerobic culture: staphylococcus epidermidis which was resistant to penicillins, clindamycin. This was suspectible to Bactrim and she was prescribed Bactrim x 7 days and Flagyl x 7 days. She recently finished these antibiotics. She was seen by Dr. Sasha Alcala ([place] [facility]) who referred her to our [...] 02/12 followed by a possible hysterectomy 03/30. SEASONER HAND history: Menarche: 11 /Para: Age at 1st [...] BREAST BIOPSY RIGHT 10/01/2021 Javier Mcdonald, DO [facility] ULTRASOUND US BREAST BIOPSY RIGHT Right 07/01/2023 US BREAST BIOPSY RIGHT 07/01/2023 BREAST ULTRASOUND LUIS Family History Problem Relation Age of Onset Breast cancer Mother 60 Cancer Mother Breast Lymphoma Sister Prostate cancer Maternal Grandfather Breast cancer Mater (more content not included)... [facility] 01-12-2024 History of Presen t illness [...] other drug use. 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 Ultrasound showed an isolated, [...] to clindamycin. She was seen by her print line inspector who cultured the nipple discharge on 12/22/2023 with results showing: Anaerobic: Bacteroides vulgatus, and Prevotella sp. Aerobic culture: staphylococcus epidermidis which was resistant to penicillins, clindamycin. This was suspectible to Bactrim and she was prescribed Bactrim x 7 days and Flagyl x 7 days. She recently finished these antibiotics. She was seen by Dr. Sasha Alcala ([place] [facility]) who referred her to our [...] a D&C and endometrial biopsy scheduled for 10/18 followed by a possible hysterectomy 03/30. 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 Constitutional: General: [...] She recently had culture completed through her print line inspector office of her purulent nipple discharge which [...] smoking cessation. I provided her with the [place] tobacco quit line information on her AVS. [...] minutes on this encounter today which includes mrys-xn-iigg time with the patient, time reviewing the chart, and time spent documenting the encounter. documented in this encounter [facility] 12-30-2023 History of Presen t illness [...] nursing note reviewed. Exam conducted with a baseball glove stuffer present. Vitals: Estimated body mass index is [...] Hawk Anaya DO documented in this encounter [facility] 12-15-2023 History of Presen t illness Narrative [...] nursing note reviewed. Exam conducted with a baseball glove stuffer present. Vitals: There is no height or [...] Hawk Anaya DO documented in this encounter [facility] 11-27-2023 Note Lele Leon present s for a persistent cyst in the right breast, treated with antibiotics. Since her last visit 3 weeks ago, the cyst has continued to decrease, from the size of a daily to a pea and is not tender. She completed antibiotic a week ago Plan - doing much better. Excision group home is still a consideration. Follow up as needed. AUTHENTICATED BY TRACY ALEJANDRE II, ON 11/27/2023 12:56:45 [facility] 11-27-2023 History of Presen t illness Narrative Lele Leon presents for a persistent cyst in the right breast, treated with antibiotics. Since her last visit 3 weeks ago, the cyst has continued to decrease, from the size of a daily to a pea and is not tender. She completed antibiotic a week ago Plan - doing much better. Excision buttermaker helper is still a consideration. Follow up as needed. documented in this encounter [facility] 11-06-2023 Note Lele Leon present s for a persistent cyst in the right breast, treated with antibiotics. Since her last visit 2 weeks ago and taking clindamycin, the cyst has continued to decrease, from the size of a plum to a daily, and is also less tender. Plan is to taper clindamycin for 2 more weeks and recheck in 3 weeks. Excision buttermaker helper is still a consideration. AUTHENTICATED BY TRACY ALEJANDRE II, ON 11/06/2023 12:39:37 [facility] 11-06-2023 History of Presen [...] weeks and recheck in 3 weeks. Excision group home is still a consideration. documented in this encounter [facility] 10-22-2023 Note Lele Leon present s [...] BY TRACY ALEJANDRE II, ON 10/22/2023 15:39:42 [facility] 10-22-2023 History of Presen [...] weeks, then reevaluate. documented in this encounter [facility] 10-16-2023 Note Lele Leon female 38 [...] AUTHENTICATED BY NICOLE DEAN, ON 10/17/2023 09:28:01 [facility] 10-16-2023 History of Presen [...] Nicole Dean PA-C documented in this encounter [facility] 10-16-2023 History of Presen t illness [...] Nicole Dean PA-C documented in this encounter [facility] 09-30-2023 Note Lele Leon female 38 [...] BY TRACY ALEJANDRE II, ON 10/01/2023 12:29:19 [facility] 08-25-2023 Note .Subjective Patient [...] If this im (more content not included)... [facility] 08-25-2023 History of Presen [...] daily with breakfast . - blood-glucose sensor (AURSOSStyle Andrew 3 Sensor) Malia; For continuous glucose monitoring. Change every 14 days . - Hemoglobin A1c; Future - CBC and Differential; Future - Comprehensive Metabolic Panel; Future - Lipid Panel; Future Mastitis - doxycycline hyclate (VIBRA-TABS) 100 MG tablet; Take 1 (one) tablet (100 mg total) by mouth 2 (two) times a day . Note: This dictation was generated using [employer] voice recognition software. Please excuse any grammatical or spelling errors that may have occurred using the system. documented in this encounter [facility] 07-03-2023 History of Presen t illness Narrative Patient informed of negative right breast biopsy results. Patient also informed of the need for a repeat 6 month right breast mammogram and US. Recall placed in computer. documented in this encounter [facility] 07-03-2023 History of Presen t illness Narrative Called patient today for post biopsy call/check in. No answer, left VM for patient to return my call with any questions/concerns. Per chart, patient has viewed results in [employer] which reveal mastitis. Ordering provider to call patient with results. Benign path entered into breast care summary. Navigation will sign off at this time. Cheri MATTHEWS, RN General Oncology Nurse Navigator Breast Health Nurse Navigator [facility] [phone] documented in this encounter [facility] 07-01-2023 History of Presen t illness [...] in good condition. documented in this encounter [facility] 05-14-2023 History of Presen t illness [...] to genetic counseling. documented in this encounter [facility] 04-01-2023 Note Addended by: ARIANA GARZA on: 04/01/2023 10:45 AM Modules accepted: Orders [facility] 04-01-2023 Note Addended by: ARIANA GARZA on: 04/01/2023 10:45 AM Modules accepted: Orders [facility] 04-01-2023 Miscellaneous Notes Addended by: ARIANA GARZA on: 04/01/2023 10:45 AM Modules accepted: Orders documented in this encounter [facility] 04-01-2023 History of Presen t illness [...] Future Note: This dictation was generated using [employer] voice recognition software. Please excuse any grammatical or spelling errors that may have occurred using the system. documented in this encounter [facility] 01-28-2023 History of Presen t illness [...] . Note: This dictation was generated using [employer] voice recognition software. Please excuse any grammatical or spelling errors that may have occurred using the system. documented in this encounter [facility] 09-09-2022 History of Presen t illness [...] . Note: This dictation was generated using [employer] voice recognition software. Please excuse any grammatical or spelling errors that may have occurred using the system. documented in this encounter [facility] 05-28-2022 History of Presen t illness [...] . Note: This dictation was generated using [employer] voice recognition software. Please excuse any grammatical or spelling errors that may have occurred using the system. 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 Please excuse any grammatical or spelling errors that may have occurred using the system. documented in this encounter [facility] 02-05-2022 History of Presen t illness [...] . Note: This dictation was generated using [employer] voice recognition software. Please excuse any grammatical [...] people? Somewhat difficult documented in this encounter [facility] 10-02-2021 History of Presen t illness Narrative Patient informed of negative right breast biopsy results. Patient also informed of the need for a repeat mammogram and ultrasound in 6 months. Recall placed in computer. documented in this encounter [facility] 10-01-2021 History of Presen t illness [...] in good condition. documented in this encounter [facility] 10-01-2021 Instructions Elisha Fuentes RN - [...] at any time. documented in this encounter [facility] 10-01-2021 History of Presen t illness [...] by Kaitlin Tay. documented in this encounter [facility] 09-21-2021 History of Presen t illness Narrative Dr. Lim met with patient to discuss imaging results and recommendations. He is recommending surgical consult and Right ultrasound breast biopsy Explained Breast Health Nurse role in assisting patient scheduling, education, and support. Referral to Dr. Mcdaniel. Appointment scheduled with Dr. Mcdaniel on 10/01/21 at [facility]. Biopsy appointment scheduled on 10/01/21 at [facility]. Patient Accepted first available appointment offered for consultation and/or biopsy. Anticoagulants = None Allergies = ibuprofen, bee venom. After Visit Summary reviewed with patient to include appointment information, biopsy education and office contact information. All questions answered. documented in this encounter [facility] 09-21-2021 Instructions Elisha Fuentes RN - [...] must lie still during the procedure. The commissary production supervisor places warm gel on your breast and [...] at any time. 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 Self pay??-refer to [facility] if applicable- [phone] Order Specific Question: Reason for Exam: Answer: family history of breast cancer (mother) Order Specific Question: Is the patient ? Answer: No Order Specific Question: Release to patient Answer: Immediate No results found for this or any previous visit (from the past 336 hour(s)). Note: This dictation was generated using [employer] voice recognition software. Please excuse any grammatical [...] is causing irritation. documented in this encounter [facility] 04-29-2021 History of Presen t illness Narrative Patient called [facility] with concern for COVID-19 and need for testing. [place]/ Department: [facility] ED Fever: no S/S : cough, sore throat, headache Known positive covid exposure?: no Per IDSA guidelines, testing is indicated. Suspect COVID, order placed. Patient aware this phone consult is for testing only. They will follow up with PCP/UC/ED for symptom management, if needed. documented in this encounter [facility] Evaluation note Diagnosis Encntr for obs for susp expsr to oth biolg agents ruled out- Primary [facility] Suppurative hidradenitis- Primary Hidradenitis Family history of breast cancer Family history of malignant neoplasm of breast Encounter for screening for malignant neoplasm of breast, unspecified screening modality [facility] Diagnosis Mass of right breast, unspecified quadrant- Primary [facility] Diagnosis Abnormal mammogram of right breast- Primary [facility] Diagnosis Current moderate episode of major depressive disorder without prior episode (HCC)- Primary [facility] Diagnosis Current moderate episode of major depressive disorder without prior episode (HCC)- Primary Needs flu shot Need for prophylactic vaccination and inoculation against influenza [facility] Diagnosis Current moderate episode of major depressive disorder without prior episode (HCC)- Primary Overactive bladder Hypertonicity of bladder [facility] Diagnosis Prediabetes- Primary Other abnormal glucose Current moderate episode of major depressive disorder without prior episode (HCC) [facility] Diagnosis Current moderate episode of major depressive disorder without prior episode (HCC)- Primary Prediabetes Other abnormal glucose Multiple joint complaints [facility] Diagnosis Discharge from right nipple- Primary [facility] Diagnosis Family history of breast cancer- Primary Family history of malignant neoplasm of breast [facility] Diagnosis Nipple discharge- Primary Other sign and symptom in breast Family history of breast cancer in first degree relative Family history of malignant neoplasm of breast [facility] Diagnosis 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 [facility] Diagnosis Current moderate episode of major depressive disorder without prior episode (HCC)- Primary Prediabetes Other abnormal glucose Mastitis Inflammatory disease of breast [facility] Diagnosis Mastitis- Primary Inflammatory disease of breast [facility] Diagnosis Cellulitis of right breast- Primary Mastitis Inflammatory disease of breast [facility] Diagnosis Cellulitis of right breast- Primary History of lump of right breast Abscess of breast Inflammatory disease of breast [facility] Diagnosis Abscess of breast- Primary Inflammatory disease of breast Cellulitis of right breast [facility] Diagnosis Abscess of breast- Primary Inflammatory disease of breast Cellulitis of right breast [facility] Diagnosis Abscess of right breast- Primary Family history of breast cancer Family history of malignant neoplasm of breast [facility] Diagnosis Abscess of right breast- Primary Family history of breast cancer Family history of malignant neoplasm of breast [facility] noteNo assessment information availableSelect [facility] [place] Work Phone: Evaluation note* Diagnosis Pre-op examination Menorrhagia with regular cycle Pelvic pain in female Unspecified symptom associated with female genital organs Dysmenorrhea Dyspareunia in female [facility] Postoperative visit S/P D&C (status post dilation and curettage) Other postprocedural status [facility] Discharge from right nipple Irregular periods/menstrual cycles PCOS (polycystic ovarian syndrome) Polycystic ovaries [facility] Diagnosis Endometrial thickening on ultrasound Abnormal uterine bleeding (AUB) Irregular periods/menstrual cycles Pelvic pain in female Unspecified symptom associated with female genital organs Dysmenorrhea [facility] Pre-op examination Well woman exam Routine general medical examination at a health care facility Thickened endometrium Nonspecific (abnormal) findings on radiological and other examination of genitourinary organs Enlarged uterus Hypertrophy of uterus Pelvic pain in female Unspecified symptom associated with female genital organs Abnormal uterine bleeding (AUB) Well woman exam with routine gynecological exam Routine gynecological examination [facility]* Diagnosis Encounter for postoperative care documented [facility]* Diagnosis Duct ectasia of breast, right- Primary Mastitis chronic Diffuse cystic mastopathy Nipple discharge Other sign and symptom in breast Cellulitis, unspecified [facility]* Attachments The following attachments cannot be sent through Care Everywhere. * Hidradenitis Suppurativa (Ghanaian) [facility]* Attachments The following attachments cannot be sent through Care Everywhere. * Cervical: Exercises (Ghanaian) [facility] * Tejinder Case MD - 03/18/2018 Continue to soak in warm water and dish soap, call Dr. Case symptoms worsens over the weekend, clindamycin 4 times daily as directed The following attachments cannot be sent through Care Everywhere. * Paronychia of the Finger or Toe (Ghanaian) in this encounter* Instructions* Surekha Quintanilla MD [...] Diagnoses Foot pain, right Conn, Yasmin Reena, TECHNICAL CABLE JOINTER [address] [place] [id number] Kalin Logan, MATTHEW [address] [place] [phone] Status Reason Specialty Diagnoses / Procedures Re ferred By Contact Referred To Contact New Request Diagnoses Essential hypertension Procedures ECG aHrjit Lana [facility] [address] [place] [phone] Status Reason Specialty Diagnoses / Procedures Referred By Contact Referred To Contact New Request DATABASE DESIGNER Diagnoses Menorrhagia with regular cycle Lana Lombardi SHIPPING AND RECEIVING WEIGHER-TECHNICAL CABLE JOINTER [address] [place] [phone] Susie Sheldon, DO [address] [place] [id number] Status Reason Specialty Diagnoses / Procedures Referred By Contact Referred To Contact New Request Procedures ECG Harjit Lana [employer]IPPING [employer] RECEIVING WEIGHER-TECHNICAL CABLE JOINTER [address] [place] [phone] Status Reason Specialty Diagnoses / Procedures Referred By Contact Referred To Contact Schedule Outgoing - Transfer of Care Psychiatry Diagnoses Post-traumatic stress Lana Lombardi SHIPPING AND RECEIVING WEIGHER-TECHNICAL CABLE JOINTER [address] [place] [phone] Specialty Diagnoses / Procedures Referred By Contac t Referred To Contact Radiology Diagnoses Encounter for screening for malignant neoplasm of breast, unspecified screening modality Procedures Mammography Screening Emile Priya Taylor, TECHNICAL CABLE JOINTER [address] [place] [address] Referral ID Status Reason Start Date Expiration Date V isits Requested Visits Authorized [id number] Authorized 09/10/2021 09/10/2022 1 1 Specialty Diagnoses / Procedures Referred By Contac t Referred To Contact Radiology Diagnoses Mass of right breast, unspecified quadrant Procedures US Breast Biopsy Right Ashley Mcdaniel III, MD [address] [place] [address] Referral ID Status Reason Start Date Expiration Date V isits Requested Visits Authorized [id number] New Request 09/21/2021 09/21/2022 1 1 Specialty Diagnoses / Procedures Referred By Contac t Referred To Contact Radiology Diagnoses Discharge from right nipple Procedures Mammography Diagnostic Emile Bilateral Ariana Garza PA-C [address] [place] [address] Referral ID Status Reason Start Date Expiration Date V isits Requested Visits Authorized [id number] Authorized 04/01/2023 03/31/2024 1 1 Specialty Diagnoses / Procedures Referred By Contac t Referred To Contact Radiology Diagnoses Discharge from right nipple Procedures US Breast Right Complete Ariana Garza PA-C [address] [place] [address] Referral ID Status Reason Start Date Expiration Date V isits Requested Visits Authorized [id number] New Request 04/01/2023 03/31/2024 1 1 Specialty Diagnoses / Procedures Referred By Contac t Referred To Contact Genetics Diagnoses Family history of breast cancer Ashley Mcdaniel III, MD [facility] [place] [address] [facility] [place] Referral ID Status Reason Start Date Expiration Date V isits Requested Visits Authorized [id number] Authorized 05/14/2023 05/13/2024 1 1 Specialty Diagnoses / Procedures Referred By Contac t Referred To Contact Radiology Diagnoses Nipple discharge Family history of breast cancer in first degree relative Procedures MR Breast Bilateral With And Without Contrast Ashley Mcdaniel III, MD [facility] [place] [address] Referral ID Status Reason Start Date Expiration Date V isits Requested Visits Authorized [id number] New Request 05/14/2023 05/13/2024 1 1 Specialty Diagnoses / Procedures Referred By Contac t Referred To Contact Radiology Procedures MR Breast Core Biopsy Right Ashley Mcdaniel III, MD [address] [place] [phone] Referral ID Status Reason Start Date Expiration Date V isits Requested Visits Authorized [id number] Pending Review 06/18/2023 06/17/2024 1 1 Specialty Diagnoses / Procedures Referred By Contac t Referred To Contact Radiology Procedures US Breast Biopsy Right Ashley Mcdaniel III, MD [address] [place] [id number] Referral ID Status Reason Start Date Expiration Date V isits Requested Visits Authorized [id number] Pending Review 06/18/2023 06/17/2024 1 1 Specialty Diagnoses / Procedures Referred By Contac t Referred To Contact Radiology Procedures US Breast Right Complete Ashley Mcdaniel III, MD [address] [place] [phone] Referral ID Status Reason Start Date Expiration Date V isits Requested Visits Authorized [id number] New Request 06/18/2023 06/17/2024 1 1 Specialty Diagnoses / Procedures Referred By Contac t Referred To Contact Diagnoses PrediabAriana Hough PA-C [address] [place] [id number] Referral ID Status Reason Start Date Expiration Date Visits Re quested Visits Authorized [id number] Closed 1 1 Specialty Diagnoses / Procedures Referred By Contac t Referred To Contact Radiology Diagnoses Mastitis Procedures US Breast Right Complete Tracy Alejandre II, MD [address] [place] [id number] Referral ID Status Reason Start Date Expiration Date V isits Requested Visits Authorized [id number] New Request 09/30/2023 09/29/2024 1 1 Specialty Diagnoses / Procedures Referred By Contac t Referred To Contact Genetics Diagnoses Family history of breast cancer [place] Alyssa Gaytan, TECHNICAL CABLE JOINTER [address] [place] [address] [facility] [place] Referral ID Status Reason Start Date Expiration Date V isits Requested Visits Authorized [id number] Authorized 01/12/2024 01/11/2025 1 1 Instructions * Patient Instructions* Kesha Brownricreggie Valles, DAMARIS - 10/13/2018 11:35 AM EDT [...] your doctor if you can take an [id number] medicine. Rest and protect your foot. Take [...] Log into your personal health record on [email or web address] and enter D999 in the Education box to learn more about Foot Pain: Care Instructions. Current as of: January 15, 2018 Content Version: 12.0 [id number] [employer]. Care instructions adapted under license by your healthcare professional. If you have questions about a medical condition or this instruction, always ask your healthcare professional. [employer] disclaims any warranty or liability for your [...] cushion your heel. You can buy these [employer] shoe stores. Use them in both shoes, [...] Log into your personal health record on [email or web address] and enter S299 in the Education box to learn more about Heel Pain: Care Instructions. Current as of: January 18, 2018 Content Version: 12.0 [id number] [employer]. Care instructions adapted under license by your healthcare professional. If you have questions about a medical condition or this instruction, always ask your healthcare professional. [employer] disclaims any warranty or liability for your use of this information. Follow up with the glass cutter helper. Ice, elevate and Tylenol. documented in this [...] may report side effects to FDA at 8-616-CZL-0438. What other drugs will affect losartan? Tell your doctor about all your other medicines, especially: a diuretic or water pill ; other blood pressure medications; lithium; or NSAIDs (nonsteroidal anti-inflammatory drugs) --aspirin, ibuprofen (Advil, Motrin), naproxen (Aleve), celecoxib, diclofenac, indomethacin, meloxicam, and others. This list is not complete. Other drugs may affect losartan, including prescription and ybwv-amw-qdchkvv medicines, vitamins, and herbal products. Not all [...] to ensure that the information provided by [employer]. ('[employer]') is accurate, up-to-date, and complete, but no guarantee is made to that effect. Drug information contained herein may be time sensitive. [employer] information has been compiled for use by healthcare practitioners and consumers in the [place] and therefore [employer] does not warrant that uses outside of the [place] are appropriate, unless specifically indicated otherwise. [employer] drug information does not endorse drugs, diagnose patients or recommend therapy. [employer] drug information isan informational resource designed to [...] effective or appropriate for any given patient. [employer] does not assume any responsibility for any aspect of healthcare administered with the aid of information [employer] provides. The information contained herein is not intended to cover all possible uses, directions, precautions, warnings, drug interactions, allergic reactions, or adverse effects. If you have questions about the drugs you are taking, check with your doctor, nurse or pharmacist. Copyright [id number] [employer]. Version: 16.01. Revision date: 08/05/2018. Care instructions adapted under license by your healthcare professional. If you have questions about a medical condition or this instruction, always ask your healthcare professional. [employer] [place] disclaims any warranty or liability for your [...] of daily or weekly servings for a 2,016-vxpouhn-p-day diet. You may need more or less [...] DASH, visit: National Heart, Lung, and Blood [place] at www.nhlbi.nih.gov/health/health-topics/topics/dash MedlinePlus at https://medlineplus.gov/dashdiet.html Adopt healthy [...] wedges, 1 tablespoon sunflower seeds, 1 teaspoon Ethiopian dressing 1 cup cantaloupe chunks cup fruit [...] cup raisins cup applesauce cup low-fat, low-sugar Maori yogurt 1 low-fat mozzarella string cheese 2017October 26, 2018, [facility]. This handout is for informational purposes only. Talk with your doctor or healthcare team if you have any questions about your care. For more health information, call the [employer] Information at [phone] or email: [email or web address]. documented in this encounter* Patient Instructions* Lana [...] Where can you learn more? Go to http://www.[email or web address]/patiented. Enter H967 in the search box to learn more about 'DASH Diet: Care Instructions.' Interested in seeing a video go to https://[employer].edu/videolibrary to see all video content. Current as of: April 12, 2019 Content Version: 12.5 [employer]. Care instructions adapted under license by your healthcare professional. If you have questions about a medical condition or this instruction, always ask your healthcare professional. [employer] disclaims any warranty or liability for your use of this information. documented in this encounter* Patient Instructions* Lana Lombardi APRN-CNP - 01/25/2019 1:00 PM EDT [place] [address] [place] [address] or [phone] A script for PAXIL has been sent [...] may report side effects to FDA at 7-171-CQI-9869. What other drugs will affect paroxetine? Taking [...] may interact with paroxetine, including prescription and cadg-uyz-gbsvbfx medicines, vitamins, and herbal products. Not all [...] to ensure that the information provided by [employer]. ('[employer]') is accurate, up-to-date, and complete, but no guarantee is made to that effect. Drug information contained herein may be time sensitive. [employer] information has been compiled for use by healthcare practitioners and consumers in the [place] and therefore [employer] does not warrant that uses outside of the [place] are appropriate, unless specifically indicated otherwise. [employer] drug information does not endorse drugs, diagnose patients or recommend therapy. [employer] drug information isan informational resource designed to [...] effective or appropriate for any given patient. [employer] does not assume any responsibility for any aspect of healthcare administered with the aid of information [employer] provides. The information contained herein is not intended to cover all possible uses, directions, precautions, warnings, drug interactions, allergic reactions, or adverse effects. If you have questions about the drugs you are taking, check with your doctor, nurse or pharmacist. Copyright [id number] [employer]. Version: 26.01. Revision date: 09/02/2016. Care instructions adapted under license by your healthcare professional. If you have questions about a medical condition or this instruction, always ask your healthcare professional. [employer] disclaims any warranty or liability for your [...] may report side effects to FDA at 9-075-YAI-1100. What other drugs will affect buspirone? Taking this medicine with other drugs that make you sleepy or slow your breathing can worsen these effects. Ask your doctor before taking buspirone with a sleeping pill, narcotic pain medicine, muscle relaxer, or medicine for anxiety, depression, or seizures. Other drugs may interact with buspirone, including prescription and ipgu-xch-xmebech medicines, vitamins, and herbal products. Tell each [...] to ensure that the information provided by [employer]. ('[employer]') is accurate, up-to-date, and complete, but no guarantee is made to that effect. Drug information contained herein may be time sensitive. [employer] information has been compiled for use by healthcare practitioners and consumers in the [place] and therefore [employer] does not warrant that uses outside of the [place] are appropriate, unless specifically indicated otherwise. [employer] drug information does not endorse drugs, diagnose patients or recommend therapy. [employer] drug information isan informational resource designed to [...] effective or appropriate for any given patient. [facility] does not assume any responsibility for any aspect of healthcare administered with the aid of information [facility] provides. The information contained herein is not intended to cover all possible uses, directions, precautions, warnings, drug interactions, allergic reactions, or adverse effects. If you have questions about the drugs you are taking, check with your doctor, nurse or pharmacist. Copyright 7388-1748 [facility]. Version: 5.01. Revision date: 04/10/2015. Care instructions adapted under license by your healthcare professional. If you have questions about a medical condition or this instruction, always ask your healthcare professional. [employer] disclaims any warranty or liability for your [...] AM EDT PATIENT NAME: Lele Dacosta [facility] [address] [place] [id number] : 1985 DATE OF VISIT: 10/13/2018 #: [...] file Gets together: Not on file Attends protestant service: Not on file Active member of [...] 5' 3 Wt 115.2 kg (254 lb) [facility] 10/06/2018 Comment: LMP end date SpO2 98% [...] OTC supplements/vitamins. Reports she has a personal assistant and exercises 2-3 times a week (past [...] affect, mood and dress are noted. HEENT: EVERTNO, no drainage, EOMI, oropharynx without findings. TM [...] annual checkups. Lele was seen today for [facility] well adult. - CBC, EDIF, PLATELET; Future - COMPREHENSIVE METABOLIC PANEL; Future - LIPID PANEL W CALCULATED LDL; Future - TSH W/FT4 REFLEX; Future Elevated TSH Chronic. Repeat TSH ordered. - TSH W/FT4 REFLEX; Future BMI 45.0-49.9, adult Chronic. Discussed weight loss and diet. Offered referral to helper steel fabrication. Pt declined at this time. 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 Going to counseling at [facility] in [place]. She has previously tried Zoloft and Lexapro. [...] times daily as needed. 60 tablet 1 stezxuqg-ntnouqqie-spcfzpjbmmfpk 3.5-26195-3.[address] 1 drop in both eyes [...] better. documented in this encounter* Lana Lombardi APRN-DAMARIS - 06/25/2019 1:20 PM EST Elevated blood [...] Lele presents after having been seen at [facility] ER on 12/05/19. States pain seemed [...] Lele reports she has been having some group home problems with her periods, and some accompanying [...] told she was too young by her author negative for - incontinence or urinary frequency/urgency [...] with regular cycle N92.0 AMB REFERRAL TO [facility] Assessment and Plan Chronic right-sided low back [...] Uterine ablation discussed. - AMB REFERRAL TO [facility] Other orders - cyclobenzaprine 10 MG tablet; Take 1 tablet by mouth at bedtime as needed. * Mayd Hunter LPN - 12/07/2019 10:30 AM EDT [...] leg. documented in this encounter* Lana Lombardi APRN-DAMARIS - 12/14/2019 9:30 AM EDT PTSD Lele [...] Reports normal stress. Previously seeing counselor at [facility] in [place] but cannot afford it at $140/hr. Elevated [...] has been madeto [facility] in [place]. Pt does not want to be seen in [place]. Online referral made for her , as well. - AMB REFERRAL TO BEHAVIORAL HEALTH - paroxetine (PAXIL) 20 MG Tab tablet; Take 1 tablet by mouth daily. * Precious Castillo LPN - 01/25/2019 1:00 PM EDT Lele Dacosta Edward is a 33 y.o. female who comes [...] today: 20. documented in this encounter* Lana Lombardi, CRISTOPHER-TECHNICAL CABLE JOINTER - 03/17/2019 9:00 AM EST PTSD Lele [...] is [facility] [place], as recommended at her last appointment. She [...] her two small children with her today. Ider, appropriate interaction between mother and children. ICD-10-CM [...] PTSD. She is going to counseling at [facility] in [place]. On paroxetine. 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 Social Needs Financial resource strain: Not hard [...] Gets together: Three times a week Attends protestant service: Never Active member of club or [...] FoundDocuments on File Type Date Recorded Patient Denture Contour Wire Specialist Expl anation Advance Directives and Living Will Documents on File Type Date Recorded Patient Denture Contour Wire Specialist Expl anation Advance Directives and Living Will Documents on File Type Date Recorded Patient Denture Contour Wire Specialist Expl anation Advance Directives and Livin g [...] Establish Care Was with Dr Brennan in [facility]- seen him once- but is hanging because she works in [employer] now.Was seeing a counselor but they decided [...] General Surgery Diagnoses Galactorrhea Ariana Garza PA-C [address] [place] [address] Ashley Mcdaniel III, MD [address] [place] [address] Referral ID Status Reason Start Date Expiration Date Visits Re quested Visits Authorized [id number] Closed 04/25/2023 04/24/2024 1 1 Reason Onset Date Comments Results 07/03/2023 Reason Comments Follow-up No issues Specialty Diagnoses / Procedures Referred By Kofi beltran Referred To Contact Plastic Surgery Diagnoses History of lump of right breast Ariana Garza PA-C [address] [place] [address] Tracy Alejandre II, MD [address] [place] [address] Referral ID Status Reason Start Date Expiration Date Visits Re quested Visits Authorized [id number] Closed 09/24/2023 09/23/2024 1 1 Reason Comments Initial Visit (Intake) Right nipple Disc harge.CAT 3.[place] [facility] Reason Comments Post-op Visit Pt present for a pos t operative visit. Pt had a D&C on 02/13/2024. Reason Comments discuss procedure Reason Comments [facility] Visit Pre-op Visit Reason Comments Post-op Visit Reason Comments Consult Recurrent Rt breast mastitis Specialty Diagnoses / Procedures Referred By Contac t Referred To Contact General Surgery Diagnoses Mastitis chronic Cellulitis, unspecified Procedures [place] OFFICE/OUTPATIENT [facility] 60 MINUTES Mayela Mann MD [address] [place] [address] Phone: tel: fax: [facility] [address] [address] Phone: tel: fax: Referral ID Status Reason Start Date Expiration Date V isits Requested Visits Authorized [id number] Closed Specialty Services Required 01/06/2025 07/05/2025 1 1 INFORMATION SOURCE (unrecogn ized section and content) DATE CREATED AUTHOR 10/17/2018 [facility] DATE CREATED AUTHOR AUTHOR'S ORGANIZ ATION 12/25/2019 [facility] DATE CREATED AUTHOR AUTHOR'S ORGANIZ ATION 12/15/2020 [facility] DATE CREATED AUTHOR AUTHOR'S ORGANIZ ATION 07/31/2023 [facility] DATE CREATED AUTHOR AUTHOR'S ORGANIZ ATION 11/12/2023 [facility] DATE CREATED AUTHOR AUTHOR'S ORGANIZ ATION 11/29/2023 [facility] DATE CREATED AUTHOR AUTHOR'S ORGANIZ ATION 01/15/2024 [facility] DATE CREATED AUTHOR AUTHOR'S ORGANIZ ATION 01/27/[address] [facility]atory DATE CREATED AUTHOR AUTHOR'S ORGANIZ ATION 04/08/2024 [facility] DATE CREATED AUTHOR AUTHOR'S ORGANSALOME ATION 01/06/2025 [facility] DATE CREATED AUTHOR AUTHOR'S ORGANSALOME ATION 01/20/2025 [facility] Special[facility] Surekha Gary MD - 12/05/2019 [...] file Gets together: Not on file Attends protestant service: Not on file Active member of [...] Care Teams (unrecognized sec tion and content) 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 Relationship Specialty Start Date End Date Maikel Leal MD [address] [place] [address] PCP - General Family Medicine 08/04/20 Love Jimenez, TECHNICAL CABLE JOINTER [address] [place] [address] PCP - [facility] Provider - [facility] 01/27/20 04/27/50 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 Relationship Specialty Start Date End Date Maikel Leal MD [address] [place] [address] PCP - General Family Medicine 08/04/20 Love Jimenez, TECHNICAL CABLE JOINTER [address] [place] [address] PCP - JASBIR Attributed Provider - [facility] 01/27/20 04/27/50 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 Relationship Specialty Start Date End Date Maikel Leal MD [address] [place] [address] PCP - General Family Medicine 08/04/20 Love Jimenez, TECHNICAL CABLE JOINTER [address] [facility] [place] [address] PCP - JASBIR Attributed Provider - [facility] 01/27/20 04/27/50 Elisha Fuentes, RN Patient Navigator Nursing 09/21/21 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 Relationship Specialty Start Date End Date Maikel Leal MD [address] [place] [address] PCP - General Family Medicine 08/04/20 Love Jimenez, TECHNICAL CABLE JOINTER [address] [facility] [place] [address] PCP - JASBIR Attributed Provider - [facility] 01/27/20 04/27/50 Elisha Fuentes, RN Patient Navigator Nursing 09/21/21 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 Relationship Specialty Start Date End Date Maikel Leal MD [address] [place] [address] PCP - General Family Medicine 08/04/20 Love Jimenez, TECHNICAL CABLE JOINTER [address] [facility] [place] [address] PCP - JASBIR Attributed Provider - [facility] 01/27/20 04/27/50 Elisha Fuentes, RN Patient Navigator Nursing 09/21/21 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 Relationship Specialty Start Date End Date Maikel Leal MD [address] [place] [address] PCP - General Family Medicine 08/04/20 Love Jimenez, TECHNICAL CABLE JOINTER [address] [place] [address] PCP - JASBIR Attributed Provider - [facility] 01/27/20 04/27/50 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 Relationship Specialty Start Date End Date Barbara Love Garcia CNP [address] [place] [address] PCP - JASBIR Attributed Provider - [facility] 01/27/20 04/27/50 Love Jimenez, DAMARIS [address] [place] [address] PCP - JASBIR Attributed Provider - [facility] 01/27/20 04/27/50 Ariana Garza PA-C [address] [place] [address] PCP - General Physician Psychiatric Specialist 02/05/22 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 Relationship Specialty Start Date End Date Barbara Love Garcia, DAMARIS [address] [place] [address] PCP - JASBIR Attributed Provider - [facility] 01/27/20 04/27/50 Love Jimenez, TECHNICAL CABLE JOINTER [address] [place] [address] PCP - JASBIR Attributed Provider - [facility] 01/27/20 04/27/50 Ariana Garza PA-C [address] [place] [address] PCP - General Physician Psychiatric Specialist 02/05/22 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 Relationship Specialty Start Date End Date Ariana Garza PA-C [address] [place] [address] PCP - General Physician Psychiatric Specialist 02/05/22 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 Relationship Specialty Start Date End Date Ariana Garza PA-C [address] [place] [address] PCP - General Physician Psychiatric Specialist 02/05/22 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 Relationship Specialty Start Date End Date Ariana Garza PA-C [address] [place] [address] PCP - General Physician Psychiatric Specialist 02/05/22 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 Relationship Specialty Start Date End Date Ariana Garza PA-C [address] [place] [address] PCP - General Physician Psychiatric Specialist 02/05/22 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 Relationship Specialty Start Date End Date Ariana Garza PA-C [address] [place] [address] PCP - General Physician Psychiatric Specialist 02/05/22 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 Relationship Specialty Start Date End Date Ariana Garza PA-C [address] [place] [address] PCP - General Physician Psychiatric Specialist 02/05/22 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 Relationship Specialty Start Date End Date Ariana Garza PA-C [address] [place] [address] PCP - General Physician Psychiatric Specialist 02/05/22 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 Relationship Specialty Start Date End Date Ariana Garza PA-C [address] [place] [address] PCP - General Physician Psychiatric Specialist 02/05/22 Klaudia Marley, RN Registered Nurse Nursing 06/18/23 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 Relationship Specialty Start Date End Date Ariana Garza PA-C [address] [place] [address] PCP - General Physician Psychiatric Specialist 02/05/22 Klaudia Marley, RN Registered Nurse Nursing 06/18/23 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 Relationship Specialty Start Date End Date Ariana Garza PA-C [address] [place] [address] PCP - General Physician Psychiatric Specialist 02/05/22 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 Relationship Specialty Start Date End Date Ariana Garza PA-C [address] [place], [place] [address] [address] PCP - General Physician Psychiatric Specialist 02/05/22 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 Relationship Specialty Start Date End Date Ariana Garza PA-C [address] [place] [address] [place] [address] PCP - General Physician Psychiatric Specialist 02/05/22 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 Relationship Specialty Start Date End Date Love Jimenez CNP [address] [place], [place] [address] [address] PCP - [facility] Provider - [facility] 01/27/20 04/27/50 Ariana Garza PA-C [address] [place] [address] PCP - General Physician Psychiatric Specialist 02/05/22 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 Relationship Specialty Start Date End Date Love Jimenez, TECHNICAL CABLE JOINTER [address] [place] [address] PCP - JASBIR Attributed Provider - [facility] 01/27/20 04/27/50 Ariana Garza PA-C [address] [place] [address] PCP - General Physician Psychiatric Specialist 02/05/22 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 Relationship Specialty Start Date End Date Love JimenezDAMARIS [address] [place] [address] PCP - JASBIR Attributed Provider - [facility] 01/27/20 04/27/50 Ariana Garza PA-C [address] [place] [address] PCP - General Physician Psychiatric Specialist 02/05/22 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 Relationship Specialty Start Date End Date Hawk Anaya DO [address] [place] [address] Consulting Physician Obstetrics/Gynecology 01/12/24 Alyssa Prakash, DAMARIS Juli Fatima [facility] [address] [place] [address] Nurse Practitioner 01/12/24 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 Relationship Specialty Start Date End Date Hawk Anaya DO [address] [place] [address] Consulting Physician Obstetrics/Gynecology 01/12/24 Alyssa Prakash, DAMARIS Juli Fatima [facility] [address] [place] [address] Nurse Practitioner 01/12/24 Team Status: Inactive Member Role Status Dates Hawk Anaya DO Attending Provider Active Start : February 13, 2024 End: February 13, 2024 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 [facility]. provides no warranty or guarantee of the accuracy or completeness of information in this document.
[2025-02-11 15:13] LABS: Age Gdln ACOG Testing Note (.); IGP, Aptima HPV, rfx 16/18,45 Note (.)
== END 2025-02-08 15:08 | disposition home or self-care (01) ==
LOC: LAB 15:07
PROVIDERS: PCP Family Medicine; Visit Provider Obstetrics & Gynecology
DX: Z01.419 Encounter for gynecological examination (general) (routine) without abnormal findings (principal)
CPT/HCPCS: 87624; 88175